=== PATIENT | male | born 1945 | race African-American/Black ===

== ENCOUNTER → 2023-10-02 12:58 | Outpatient (REF) | payer MEDICARE, OTHER, SELFPAY ==
[2023-10-02 13:52] LABS: Urine Albumin 3+ (Neg - Trace); Urine Bilirubin Negative (Negative); Urine Character Clear (Clear); Urine Color Yellow; Urine Glucose Negative (Negative); Urine Ketone Negative (Negative); Urine Leukocyte Trace (Negative); Urine Nitrite Negative (Negative); Urine Occult Blood Negative (Negative); Urine Specific Gravity 1.015 (<1.030); Urine Urobilinogen Negative (Neg - 1+)
[2023-10-02 14:07] LABS: ALT (SGPT) 16 U/L (0-50); AST (SGOT) 21 U/L (17-59); Albumin 3.6 g/dl (3.5-5.0); Alkaline Phosphatase 71 U/L (38-126); Blood Urea Nitrogen 33 mg/dl (9-20); Carbon Dioxide 15 mmol/L (22-30); Chloride 108 mmol/L (98-107); Glucose 104 mg/dl (70-99); HDL Cholesterol 65 mg/dl; LDL Cholesterol, Calculated 55 mg/dl; Potassium 4.3 mmol/L (3.5-5.1); Sodium 138 mmol/L (135-145); Total Bilirubin 0.5 mg/dl (0.2-1.3); Total Cholesterol 141 mg/dl (50-199); Total Protein 7.1 g/dl (6.3-8.2); Triglyceride 109 mg/dl (10-149); Very Low Density Lipoprotein 21 mg/dl (0-30)
[2023-10-02 14:09] LABS: Urine Hyaline Cast 0-2 /LPF (0-2)
[2023-10-02 14:11] LABS: Urine Bacteria Few (Negative); Urine Red Blood Cell 0-2 /HPF (0-2)
[2023-10-04 10:59] LABS: Intact PTH 736.1 pg/ml (13.6-85.8)
== END ==
LOC: REG 12:58
PROVIDERS: ATTENDING PHYSICIAN Physician Assistant
DX: I10 Essential (primary) hypertension (principal); I25.10 Atherosclerotic heart disease of native coronary artery without angina pectoris; E78.00 Pure hypercholesterolemia, unspecified; N18.32 Chronic kidney disease, stage 3b; Z85.46 Personal history of malignant neoplasm of prostate
CPT/HCPCS: 36415; 80053; 80061; 81003; 81015; 83970; 84153

== ENCOUNTER → 2023-10-22 07:29 | Outpatient (REF) | payer MEDICARE, OTHER, SELFPAY ==
[2023-10-22 08:32] LABS: Hematocrit 26.9 % (39.0-52.0); Hemoglobin 8.7 g/dL (13.0-18.0); Mean Corp Hgb Conc. 32.3 g/dL (33.0-37.0); Mean Corpuscular Hgb 27.4 pg (27.0-31.0); Mean Corpuscular Volume 84.6 fL (80.0-94.0); Mean Platelet Volume 11.2 fL (7.4-10.4); Platelet Count 211 10^3/uL (130-400); Red Blood Cell Count 3.18 10^6/uL (4.70-6.10); Red Cell Dist. Width 13.2 % (11.5-14.5); White Blood Cell Count 4.3 10^3/uL (4.8-10.8)
[2023-10-22 08:54] LABS: Urine Protein 375 mg/dl
[2023-10-22 08:56] LABS: Albumin 3.5 g/dl (3.5-5.0); Blood Urea Nitrogen 37 mg/dl (9-20); Calcium 7.1 mg/dl (8.4-10.2); Carbon Dioxide 20 mmol/L (22-30); Chloride 102 mmol/L (98-107); Glucose 93 mg/dl (70-99); Phosphorus 3.9 mg/dl (2.5-4.5); Potassium 3.3 mmol/L (3.5-5.1); Sodium 135 mmol/L (135-145); eGFR 22.12
== END ==
LOC: REG 07:29
PROVIDERS: ATTENDING PHYSICIAN Specialist
DX: I10 Essential (primary) hypertension (principal)
CPT/HCPCS: 36415; 80069; 82570; 83970; 84156; 85027

== ENCOUNTER 2024-03-13 05:00 | Inpatient (IN) | payer MEDICARE, OTHER, SELFPAY ==
[2024-03-12 22:10] VITALS: BP 173/87
[2024-03-12 23:00] VITALS: BP 176/86
--- NOTE | 2024-03-12 23:24 | ED.GENMED ---
History of Present Illness
<CHERYL Smart - Last Filed: 03/13/24 05:36>
General
Chief Complaint: Swelling
Time Seen by Provider: 03/12/24 23:23
History of Present Illness
History of Present Illness:
Pt is an 78 y/o male presenting for swelling in his penis and right arm. He states the swelling started in his penis 3 days ago and the swelling in his arm started yesterday. He states the swelling comes and goes. He denies any exacerbating or
alleviating factors. He states this has never happened in the past. He denies any pain associated with the swelling. He states he still has full strength and ROM in his arm. He denies any DIAZ, dizziness, blurry vision, cough, SOB, CP, palpitations,
abdominal pain, nausea, vomiting, diarrhea, constipation, dysuria, penial discharge.
Past History
<CHERYL Smart - Last Filed: 03/13/24 05:36>
Past History
ED Past Medical History: CAD, Cancer (Renal, prostate), HTN, Other (Peripheral arterial disease, anemia, TORSTEN) and Other (GI bleed); Negative CHF, CVA, Hypercholesterolemia, IDDM or NIDDM
ED Past Surgical History: Cardiac (Cardiac stents) and Urological (Kidney removal for renal cancer)
Social History
Tobacco: Non-smoker
Alcohol: None
Drug: None
Personal:
Living: with family
Employment: Retired
Family History
Family History: Hypertension
Phy Exam
<CHERYL Smart - Last Filed: 03/13/24 05:36>
Physical Exam
Physical Exam:
GENERAL: Alert , in no apparent distress
EYE: pupils equal and reactive
Throat: Airway intact, no exudates
NECK: Supple, no significant adenopathy.
CARDIAC: Regular rate and rhythm .
LUNGS: Clear breath sounds bilaterally, no acute respiratory distress, no wheezes/rales/rhonchi
ABDOMEN: Soft, nondistended, nontender, no cvat
NEUROLOGICAL: Alert and oriented, no focal neuro deficits
SKIN: Warm and dry, skin intact.
MUSCULOSKELETAL: Edematous right arm from below the elbow to the hand. 5/5 strength and normal ROM of the right shoulder, elbow, wrist. No pain with ROM or palpation. Left arm is nonedematous with 5/5 strength and full ROM. 2+ radial pulses b/l.
Genitourinary: Edematous penis with foreskin over glans of penis.
PSYCH: Normal and appropriate interaction.
Scores
<CHERYL Smart - Last Filed: 03/13/24 05:36>
Heart Failure Risk
Heart Failure Risk Score: Not Applicable
Course
<CHERYL Smart - Last Filed: 03/13/24 05:36>
Orders/Labs/Results
Orders:
Orders
03/13/24 00:07
US Periph Venous UPPER Ext RT Urgent
Comment:
Reason For Exam: swelling
03/13/24 00:08
CR Chest - 2 Views Urgent
Comment:
Reason For Exam: peripheral edema
03/13/24 00:17
Complete Blood Count/With Diff Urgent
Comprehensive Metabolic Panel Urgent
NT-proBNP Urgent
03/13/24 01:33
CT Abd/pelvis Wo Iv Cont Urgent
Comment:
Reason For Exam: acute renal failure
Bladder Scan- Treatment ONCE
03/13/24 03:14
Furosemide [Lasix] 40 mg IV NOW STA
03/13/24 04:04
Urinalysis Reflex To Culture Urgent
Date Specimen was Collected: 03/13/24
Time Specimen was Collected: 04:02
Urine Microscopic Reflex Cult Urgent
03/13/24 04:20
EKG [Electrocardiogram (*1)] Stat
Reason for Study: Heart Failure, Left
03/13/24 04:21
Admit/Transfer Patient As Directed
Co-Sign Provider:
Level of Care: Inpatient admission
Assign to:: IVU
Physician / Group: Malena
Transfer to: IVU
Diagnosis: Pericardial Effusion, Volume Overload, ARF
Patient Condition: Serious
Reason for Hospitalization: Pericardial Effusion, Volume Overload, ARF
Expected length of stay greater than two midnights?: Yes
ELOS- Estimated Length of Stay in days: 2
I certify the patient meets the requirements for IP care: Yes
PRN Pain Medication Management As Directed
May give lesser potent ordered pain med per pt: Yes
preference::
Protocol:: Medication orders for pain may be administered in a
manner that supports deferring to patient preference
when the pt is:
- Requesting an ordered lesser potent pain medication.
Least to most potent pain medications are defined
as: acetaminophen < NSAID < tramadol < opioids
(morphine, oxycodone, hydromorphone).
- Requesting a lesser dose of the same medication IF
ORDERED.
- Requesting a less intrusive route of administration
if both routes are prescribed by the provider (PO <
IV).
03/13/24 04:23
Code Status As Directed
Resuscitation Status: Full Code
03/13/24 04:28
Albuterol Nebs [Ventolin Nebules] 2.5 mg INH R Q4HPRN PRN
03/13/24 04:30
Troponin I Q6H
03/13/24 04:35
CARDIOLOGY CONSULT Routine
Consulting Provider: Kaushik Zaldivar
Was physician already notified: No
Reason for consult: heart failure
NEPHROLOGY CONSULT Routine
Consulting Provider: Jeffrey Neumann V.
Was physician already notified: Yes
Reason for consult: TORSTEN/CKD IV
03/13/24 04:36
Consult Notification Routine
Specialty to Notify: Cardiology
03/13/24 04:37
Elevate Extremity As Directed
Extremity:: right arm
Comment: elevate right arm above level of heart as able
03/13/24 04:39
Stevenson Catheter [Catheter- Indwelling] As Directed
Reason for insertion: Acute Retention
Discontinue Date/Time: 03/16/24 0600
03/13/24 04:40
Consult Notification Routine
Specialty to Notify: Urology
UROLOGY CONSULT Routine
Consulting Provider: Jarek Tompkins
Was physician already notified: No
Comment: torsten/hydronephrosis
03/13/24 05:00
Flush (0.9% Sodium Chloride) [Flush (Nss)] See Dose Instructions IV PER PROTOCOL
03/13/24 05:28
Acetaminophen [Tylenol] 650 mg PO Q4HPRN PRN
Bisacodyl [Dulcolax] 10 mg RECTAL [id number] PRN
Docusate W/Senna [Senokot-S] 1 tablet PO BIDPRN PRN
Polyethylene Glycol Powder [Miralax] 17 grams PO DAILYPRN PRN
03/13/24 05:28
Activity As Directed
Activity Level: As Tolerated
Intake/ Output As Directed
Frequency: Per unit guidelines
Comment: strict
Vital Signs As Directed
Frequency: Per unit guidelines
Weight As Directed
Frequency: Daily
Rx Incentive Spirometry [RESP] Routine
Frequency: q1h while awake
DX Deep Vein Thrombosis Video Routine
03/13/24 06:00
Echo 2D MMode Color/Doppler IN AM
Reason for Study: heart failure
Cardiology Consult: Kaushik Zaldivar
Cholesterol Lowering
Cholesterol Lowering: Sodium, 2 Gram
Potassium, 2 gram
Basic Metabolic Panel IN AM
Complete Blood Count/With Diff IN AM
Creatine Phosphokinase IN AM
Magnesium IN AM
03/13/24 08:00
Aspirin Low Dose EC [Aspir Low (Enteric Coated)] 81 mg PO DAILY
Brimonidine [Alphagan 0.2% Eye Drops] 1 drop OPHTH BID
Dorzolamide HCl [Trusopt 2% Ophthalmic Solution] 1 drop OPHTH BID
Furosemide [Lasix] 40 mg IV DAILY
Heparin 5,000 units SC Q12
Metoprolol [Lopressor] 12.5 mg PO BID
NIFEdipine EXTENDED RELEASE [Procardia Xl (Extended Release)] 30 mg PO DAILY
Rosuvastatin Calcium [Crestor] 10 mg PO DAILY
03/13/24 10:30
Troponin I Q6H
03/13/24 16:30
Troponin I Q6H
03/13/24 22:00
Latanoprost [Xalatan Ophthalmic Solution] 1 drop OPHTH HS
NIFEdipine EXTENDED RELEASE [Procardia Xl (Extended Release)] 60 mg PO HS
Tamsulosin [Flomax] 0.4 mg PO HS
Abnormal Lab Results
03/13/24 03/13/24
00:17 04:04
RBC 3.04 L 10^6/uL
(4.70-6.10)
Hgb 8.8 L g/dL
(13.0-18.0)
Hct 26.8 L %
(39.0-52.0)
MCHC 32.8 L g/dL
(33.0-37.0)
Abs Immat Gran (auto) 0.1 H 10^3/uL
(0-0.05)
Absolute Lymphs (auto) 0.7 L 10^3/uL
(1.2-3.4)
Immature Gran % 1.2 H %
(0-0.5)
Lymphocytes % 12.1 L %
(20.5-51.1)
Monocytes % 10.8 H %
(1.7-9.3)
Eosinophils % 6.2 H %
(0-6)
BUN 42 H mg/dl
(9-20)
Creatinine 4.1 H* mg/dL
(0.7-1.3)
Calcium 7.9 L mg/dl
(8.4-10.2)
Total Protein 6.1 L g/dl
(6.3-8.2)
Albumin 3.4 L g/dl
(3.5-5.0)
Urine Bacteria (Reflex) Few A
(Negative)
Urine Albumin (Reflex) 3+ A
(Neg - Trace)
03/13/24 00:17
03/13/24 00:17
Vital Signs
Initial and Last Documented VS:
Initial Vital Signs
Temp Pulse Resp BP Pulse Ox
98.0 F 75 18 173/87 100
03/12/24 22:10 03/12/24 22:10 03/12/24 22:10 03/12/24 22:10 03/12/24 22:10
Last Documented Vital Signs
Temp Pulse Resp BP Pulse Ox
98.0 F 88 18 205/99 100
03/12/24 22:10 03/13/24 04:02 03/12/24 22:10 03/13/24 04:02 03/13/24 04:00
Marielt;Kaushik Callejas, DO - Last Filed: 03/13/24 03:29>
Orders/Labs/Results
Orders:
Orders
03/13/24 00:07
US Periph Venous UPPER Ext RT Urgent
Comment:
Reason For Exam: swelling
03/13/24 00:08
CR Chest - 2 Views Urgent
Comment:
Reason For Exam: peripheral edema
03/13/24 00:17
Complete Blood Count/With Diff Urgent
Comprehensive Metabolic Panel Urgent
NT-proBNP Urgent
03/13/24 01:33
CT Abd/pelvis Wo Iv Cont Urgent
Comment:
Reason For Exam: acute renal failure
Bladder Scan- Treatment ONCE
03/13/24 03:14
Furosemide [Lasix] 40 mg IV NOW STA
03/13/24 04:04
Urinalysis Reflex To Culture Urgent
Date Specimen was Collected: 03/13/24
Time Specimen was Collected: 04:02
Urine Microscopic Reflex Cult Urgent
03/13/24 04:20
EKG [Electrocardiogram (*1)] Stat
Reason for Study: Heart Failure, Left
03/13/24 04:21
Admit/Transfer Patient As Directed
Co-Sign Provider:
Level of Care: Inpatient admission
Assign to:: IVU
Physician / Group: Malena
Transfer to: IVU
Diagnosis: Pericardial Effusion, Volume Overload, ARF
Patient Condition: Serious
Reason for Hospitalization: Pericardial Effusion, Volume Overload, ARF
Expected length of stay greater than two midnights?: Yes
ELOS- Estimated Length of Stay in days: 2
I certify the patient meets the requirements for IP care: Yes
PRN Pain Medication Management As Directed
May give lesser potent ordered pain med per pt: Yes
preference::
Protocol:: Medication orders for pain may be administered in a
manner that supports deferring to patient preference
when the pt is:
- Requesting an ordered lesser potent pain medication.
Least to most potent pain medications are defined
as: acetaminophen < NSAID < tramadol < opioids
(morphine, oxycodone, hydromorphone).
- Requesting a lesser dose of the same medication IF
ORDERED.
- Requesting a less intrusive route of administration
if both routes are prescribed by the provider (PO <
IV).
03/13/24 04:23
Code Status As Directed
Resuscitation Status: Full Code
03/13/24 04:28
Albuterol Nebs [Ventolin Nebules] 2.5 mg INH R Q4HPRN PRN
03/13/24 04:30
Troponin I Q6H
03/13/24 04:35
CARDIOLOGY CONSULT Routine
Consulting Provider: Kaushik Zaldivar
Was physician already notified: No
Reason for consult: heart failure
NEPHROLOGY CONSULT Routine
Consulting Provider: Jeffrey Neumann V.
Was physician already notified: Yes
Reason for consult: TORSTEN/CKD IV
03/13/24 04:36
Consult Notification Routine
Specialty to Notify: Cardiology
03/13/24 04:37
Elevate Extremity As Directed
Extremity:: right arm
Comment: elevate right arm above level of heart as able
03/13/24 04:39
Stevenson Catheter [Catheter- Indwelling] As Directed
Reason for insertion: Acute Retention
Discontinue Date/Time: 03/16/24 0600
03/13/24 04:40
Consult Notification Routine
Specialty to Notify: Urology
UROLOGY CONSULT Routine
Consulting Provider: Jarek Tompkins
Was physician already notified: No
Comment: torsten/hydronephrosis
03/13/24 05:00
Flush (0.9% Sodium Chloride) [Flush (Nss)] See Dose Instructions IV PER PROTOCOL
03/13/24 05:28
Acetaminophen [Tylenol] 650 mg PO Q4HPRN PRN
Bisacodyl [Dulcolax] 10 mg RECTAL [id number] PRN
Docusate W/Senna [Senokot-S] 1 tablet PO BIDPRN PRN
Polyethylene Glycol Powder [Miralax] 17 grams PO DAILYPRN PRN
03/13/24 05:28
Activity As Directed
Activity Level: As Tolerated
Intake/ Output As Directed
Frequency: Per unit guidelines
Comment: strict
Vital Signs As Directed
Frequency: Per unit guidelines
Weight As Directed
Frequency: Daily
Rx Incentive Spirometry [RESP] Routine
Frequency: q1h while awake
DX Deep Vein Thrombosis Video Routine
03/13/24 06:00
Echo 2D MMode Color/Doppler IN AM
Reason for Study: heart failure
Cardiology Consult: Kaushik Zaldivar
Cholesterol Lowering
Cholesterol Lowering: Sodium, 2 Gram
Potassium, 2 gram
Basic Metabolic Panel IN AM
Complete Blood Count/With Diff IN AM
Creatine Phosphokinase IN AM
Magnesium IN AM
03/13/24 08:00
Aspirin Low Dose EC [Aspir Low (Enteric Coated)] 81 mg PO DAILY
Brimonidine [Alphagan 0.2% Eye Drops] 1 drop OPHTH BID
Dorzolamide HCl [Trusopt 2% Ophthalmic Solution] 1 drop OPHTH BID
Furosemide [Lasix] 40 mg IV DAILY
Heparin 5,000 units SC Q12
Metoprolol [Lopressor] 12.5 mg PO BID
NIFEdipine EXTENDED RELEASE [Procardia Xl (Extended Release)] 30 mg PO DAILY
Rosuvastatin Calcium [Crestor] 10 mg PO DAILY
03/13/24 10:30
Troponin I Q6H
03/13/24 16:30
Troponin I Q6H
03/13/24 22:00
Latanoprost [Xalatan Ophthalmic Solution] 1 drop OPHTH HS
NIFEdipine EXTENDED RELEASE [Procardia Xl (Extended Release)] 60 mg PO HS
Tamsulosin [Flomax] 0.4 mg PO HS
Abnormal Lab Results
03/13/24 03/13/24
00:17 04:04
RBC 3.04 L 10^6/uL
(4.70-6.10)
Hgb 8.8 L g/dL
(13.0-18.0)
Hct 26.8 L %
(39.0-52.0)
MCHC 32.8 L g/dL
(33.0-37.0)
Abs Immat Gran (auto) 0.1 H 10^3/uL
(0-0.05)
Absolute Lymphs (auto) 0.7 L 10^3/uL
(1.2-3.4)
Immature Gran % 1.2 H %
(0-0.5)
Lymphocytes % 12.1 L %
(20.5-51.1)
Monocytes % 10.8 H %
(1.7-9.3)
Eosinophils % 6.2 H %
(0-6)
BUN 42 H mg/dl
(9-20)
Creatinine 4.1 H* mg/dL
(0.7-1.3)
Calcium 7.9 L mg/dl
(8.4-10.2)
Total Protein 6.1 L g/dl
(6.3-8.2)
Albumin 3.4 L g/dl
(3.5-5.0)
Urine Bacteria (Reflex) Few A
(Negative)
Urine Albumin (Reflex) 3+ A
(Neg - Trace)
03/13/24 00:17
03/13/24 00:17
Vital Signs
Initial and Last Documented VS:
Initial Vital Signs
Temp Pulse Resp BP Pulse Ox
98.0 F 75 18 173/87 100
03/12/24 22:10 03/12/24 22:10 03/12/24 22:10 03/12/24 22:10 03/12/24 22:10
Last Documented Vital Signs
Temp Pulse Resp BP Pulse Ox
98.0 F 88 18 205/99 100
03/12/24 22:10 03/13/24 04:02 03/12/24 22:10 03/13/24 04:02 03/13/24 04:00
<CHERYL Smart - Last Filed: 03/13/24 05:36>
*Radiology
Radiology exam reviewed: radiology read reviewed
*Pulse Oximetry
Patient hypoxic: no
*EKG
Interpreted by ED Provider?: NA
*Paper Baling Machine Operator Interpretation
Rate: Paper Baling Machine Operator- N/A
*Critical Care Note
Total Time (30-74mins, 75-104mins- exclusive of procedures): Not Applicable
ED Attending Note
<CHERYL Smart - Last Filed: 03/13/24 05:36>
-
Portions of this chart may have been created with voice recognition software.� Occasional wrong word or��sound alike� substitutions may have occurred due to the inherent limitations of voice recognition software.
<Kaushik Callejas DO - Last Filed: 03/13/24 03:29>
ED Attending Note
Patient seen and examined by attending physician: Yes
I performed the substantive portion of visit, reviewed & personally made and approve the management plan that is documented in note by myself or ARNEL.: Yes
ED Attending Note:
I have reviewed Azam's note
Patient presents for evaluation of swelling. Patient's not swelling his right arm and his penis. He has been experiencing the symptoms for the past 3 days or so. He noted penile swelling while transferring. Patient has bilateral [id number]
amputations. He noted that the penis was making it difficult for him to transfer. Patient also noticed the right arm swelling today. He is right-hand dominant. He denies shortness of breath. He denies orthopnea. No fever or chills. No chest
pain.
General: Awake, Alert, Oriented X3. No acute distress.
Vitals: unremarkable
Head: Atraumatic
Eyes: Pupils equal, EOMI
Throat: Airway intact, no exudates
Neck: Trachea midline
Lungs: Clear and equal b/l
Heart: Regular rate, no murmurs
Abd: Soft, Nontender, No pulsatile mass
Neuro: Grossly nonfocal
Skin: Warm, dry, no rash, pale complexion
Extremities: Bilateral [id number] amputations. Right arm noted to have mild edema of the hand and forearm. Arm is nontender. There is good radial pulse.
Labs show marked elevation in BUN/Creat. Bladder scan is not significant. CT shows mild r hydro but no obstruction. ? bladder wall thickening, pleural effusions b/l, mod pericardial effusion and anasarca.
Will give lasix for fluid retention/chf. Pt will require hospitalization for further treatment and eval.
Discharge Plan
Departure
Patient Disposition: Admit
Date of Disposition: 03/13/24
Time of Disposition: 03:15
Presentation/result/management discussed w/ accepting MD/DO: Hospitalist
Condition: Fair
Discharge Problem:
Acute renal failure, Anasarca, Pleural effusion, Pericardial effusion
Interventions
Interventions:
*Risk Screen - Suicide Last Done: 03/12/24 22:12
*General Assessment Last Done: 03/12/24 22:12
*Neglect/Abuse Screening Last Done: 03/12/24 22:12
ED- Fall Risk Assessment Last Done: 03/12/24 22:55
ED- Cardiac Assessment Last Done: 03/12/24 22:55
ED- Pulmonary Assessment Last Done: 03/12/24 22:55
ED-Skin Assessment Last Done: 03/12/24 22:55
[2024-03-13] VITALS (18 sets, daily range): BP systolic 146–215; BP diastolic 72–99
[2024-03-13 00:45] LABS: % Basophils 0.9 % (0-2); % Eosinophils 6.2 % (0-6); % Immature Granulocytes 1.2 % (0-0.5); % Lymphocytes 12.1 % (20.5-51.1); % Monocytes 10.8 % (1.7-9.3); % Neutrophils 68.8 % (42.2-75.2); Absolute Basophils 0.1 10^3/uL (0-0.2); Absolute Eosinophils 0.4 10^3/uL (0-0.7); Absolute Immature Granulocytes 0.1 10^3/uL (0-0.05); Absolute Lymphocytes 0.7 10^3/uL (1.2-3.4); Absolute Monocytes 0.6 10^3/uL (0.1-0.6); Absolute Neutrophils 3.9 10^3/uL (1.4-6.5); Hematocrit 26.8 % (39.0-52.0); Hemoglobin 8.8 g/dL (13.0-18.0); Mean Corp Hgb Conc. 32.8 g/dL (33.0-37.0); Mean Corpuscular Hgb 28.9 pg (27.0-31.0); Mean Corpuscular Volume 88.2 fL (80.0-94.0); Nucleated Red Blood Cells % 0 % (-); Platelet Count 206 10^3/uL (130-400); Red Blood Cell Count 3.04 10^6/uL (4.70-6.10); Red Cell Dist. Width 13.4 % (11.5-14.5); White Blood Cell Count 5.6 10^3/uL (4.8-10.8)
[2024-03-13 00:46] LABS: NT-proBNP 1160 pg/ml
[2024-03-13 01:01] LABS: ALT (SGPT) 34 U/L (0-50); AST (SGOT) 37 U/L (17-59); Albumin 3.4 g/dl (3.5-5.0); Alkaline Phosphatase 44 U/L (38-126); Blood Urea Nitrogen 42 mg/dl (9-20); Calcium 7.9 mg/dl (8.4-10.2); Carbon Dioxide 22 mmol/L (22-30); Chloride 107 mmol/L (98-107); Glucose 96 mg/dl (70-99); Potassium 3.7 mmol/L (3.5-5.1); Sodium 136 mmol/L (135-145); Total Bilirubin 0.3 mg/dl (0.2-1.3); Total Protein 6.1 g/dl (6.3-8.2); eGFR 13.99
--- NOTE | 2024-03-13 03:34 | HPS.HSE ---
Family Physician
-
Family Physician: Chyna Lowe MD
Chief Complaint
-
Swelling of Penis and Right Arm
History of Present Illness
78yo M with PMH CAD, HTN/HLD, Hx Pericardial Effusion, Carotid Artery Stenosis, PVD s/p Bifem Bypass, Hx B/L AKA, CKD IV, Prostate Ca, Renal Ca s/p Nephrectomy, Glaucoma presents to ER with complaint of swelling of penis and right arm. Pt states he
noticed penile swelling over the last 3 days without any pain or difficulty urinating. 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
Pt is not on any diuretics and has no documented heart failure history. Does endorses dyspnea with transferring lately. Also notes decreased appetite and disinterest in food. Otherwise denies fever, chills, chest pain, palps, wheezing, cough, abd
pain, n/v/d/c, dysuria.
Pt presents with with BP 180/91, other V.S.S. WBC 5.K, Hgb 8.8 g/dL (chronic), BUN/Cr 42/4.1 (BUN/Cr 37/2.8 10/2023). CT a/p with mild right hydro and questionable cystitis; Mod Pericardial effusion; Mod Right and Small Left Pericardial effusion not
evidenct on CXR. S/P 40mg IV lasix in ER.
Medical History
Past Medical History
Past Medical History: Reports Other (CAD, Cancer (Renal, prostate), HTN, Other (Peripheral arterial disease, anemia, TORSTEN) and Other (GI bleed);)
Past Surgical History: Reports Other (Nephrectomy, left lower artery bypass surgery, Left AKA, Right transfemoral amputation)
Social History
Tobacco: Non-smoker
Alcohol: None
Drug: None
Personal:
Living: With Family
Employment: Retired
Family History
Family History: Other (Father with cancer, Mother with pancreatic cancer, sibling with valvular heart disease.)
Allergies / Home Medications
Allergies reflects when Allergies were last updated in [facility].
Home Medications with original date entered in [facility]
Allergy/Medication List:
Allergies
Allergy/AdvReac Type Severity Reaction Status Date / Time
Hydantoins Allergy Severe Rash Verified 03/12/24 22:09
penicillin G Allergy Severe liver Verified 03/12/24 22:09
damage,
red hands
and feet
Penicillins Allergy Severe liver Verified 03/12/24 22:09
damage,
red hands
and feet
phenytoin Allergy Severe Rash Verified 03/12/24 22:09
ciprofloxacin Allergy Intermediate Itching Verified 03/12/24 22:09
Iodinated Contrast Media Allergy Intermediate chills;trem Verified 03/12/24 22:09
[Iodinated Contrast- Oral ors
and IV Dye]
tetanus and diphtheria Allergy Intermediate Swelling, Verified 03/12/24 22:09
toxoids Pain at
site
Home Medications
aspirin 81 mg tablet,delayed release 81 mg PO DAILY 10/21/20
brimonidine 0.2 % eye drops 0 drp ophthalmic (eye) BID 10/21/20
dorzolamide 2 % eye drops 0 drp ophthalmic (eye) BID 10/21/20
latanoprost 0.005 % eye drops 0 drp ophthalmic (eye) HS 10/21/20
rosuvastatin 10 mg tablet 10 mg PO DAILY 10/21/20
tamsulosin 0.4 mg capsule 0.4 mg PO HS 10/21/20
nifedipine 30 mg tablet,extended release 30 mg PO DAILY #90 tabs 10/23/20
nifedipine 30 mg tablet,extended release 60 mg (2 x 30 mg) PO HS #90 tabs 10/23/20
Review of Systems
-
A 12 point ROS was completed and negative except as noted: Yes
Physical Exam
Vital Signs
Vital Signs
Temp Pulse Resp BP Pulse Ox
98.0 F 75 18 180/91 100
03/12/24 22:10 03/12/24 22:10 03/12/24 22:10 03/13/24 02:31 03/13/24 02:31
Physical Exam
General: No Apparent Distress, Comfortable, Conversant and Appears Chronically Ill; No Respiratory Distress or Pain
HEENT: NormoCephalic, Moist mucous membranes, Atraumatic and PERRLA
Respiratory: Other (Crackles right lung base. No wheezing. )
Cardiac: S1/S2 and Regular Rhythm; No Murmur or Rub
GI: Soft, Non Tender, Non Distended and Normal Bowel Sounds; No Organomegaly
Rectal: Deferred by Provider
Genito-urinary: Other (Mild-Mod penile swelling. No testicular swelling. )
Musculoskeletal: No Clubbing, No Cyanosis and Other (B/L AKA. Right>Left UE non pitting edema. )
Skin: Warm and Dry; No Rash
Neuro: Awake, Alert, Oriented, AO x 3 and Nonfocal/grossly intact
Psych: Calm
Laboratory Results
-
03/13/24 00:17
03/13/24 00:17
Laboratory Results
Total Bilirubin 0.3 mg/dl (0.2-1.3) 03/13/24 00:17
AST 37 U/L (17-59) 03/13/24 00:17
ALT 34 U/L (0-50) 03/13/24 00:17
Alkaline Phosphatase 44 U/L (38-126) 03/13/24 00:17
Data Reviewed
-
Diagnostic Radiology: Image Personally Visualized and interpreted
CT Scan: Image Personally Visualized and interpreted
Medical Tests (Nuc Med, Echo, EKG etc): Image Personally Visualized and interpreted
Lab Data: Labs Reviewed by me
Old Records: Reviewed
Impression/Plan
-
Right Upper Extremity Edema
- Likely 2/2 volume overload, less likely DVT though asymmetric nature is odd
- Venous Duplex obtained in ER, official read pending
- Elevate right arm above level of heart, Trend with IV diuresis
Volume Overload
- Pt presents with penile swelling and RUE edema (see plan above)
- BNP 1160.
- Unclear whether volume overload 2/2 poor renal clearance 2/2 progression of disease vs heart failure
- Obtain TTE
- Consult Cardiology for recs
- Initiated on 40mg IV lasix daily diuresis trending I&O and Daily Wts
TORSTEN on CKD IV
- BUN/Cr 42/4.1. Baseline BUN/Cr 37/2.8 10/2023
- Consider cardiorenal component vs 2/2 retention
- CT a/p mild right hydro nephrosis and possible cystitis
- Follow up UA
- Insert Stevenson and trend I&O
- Avoid nephrotoxics agents
- Trend with 40mg IV lasix daily
- Consult nephrology
Hydronephrosis / Hx BPH
- CT imaging as above. Stevenson inserted
- Likely contributing to above. Urology to evaluate.
- Will continue to feed given low suspicion for acute surgical intervention
- Continue home Flomax
Questionable Cystitis - Afebrile. No leukocytosis. Follow up UA and treat accordingly.
Pericardial Effusion
- Mod Pericardial effusion o n CT imaging. Will need to diuresis cautiously, monitoring preload
- Last TTE 08/2019 with LVSF wnl, no WMA, Mild-Mod MR
- Obtain Formal TTE
- Consult Cardiology
Pleural Effusion
- Mod right effusion, small left effusion on CT a/p, not obvious on CXR
- No RR complaints or oxygen requirements
- Consider repeat imaging with diuresis. No indication for thora at this time.
CAD, HTN/HLD
- Reports hx [place]/stent
- Continue home aspirin/statin/BB/Nifedipine
- Meds need reconciliation: Pt does not know BB dose, Hector Nomi will bring in AM
Renal Ca - hx L Nephrectomy noted.
Glaucoma - Continue home eye drops
Diet: Renal
DVT ppx: Heparin
Code Status: Full
[2024-03-13] MEDS: LASIX 40 MG IV (04:02)
[2024-03-13 04:13] LABS: Urine Albumin 3+ (Neg - Trace); Urine Bilirubin Negative (Negative); Urine Character Clear (Clear); Urine Color Yellow; Urine Glucose Negative (Negative); Urine Ketone Negative (Negative); Urine Leukocyte Negative (Negative); Urine Nitrite Negative (Negative); Urine Occult Blood Negative (Negative); Urine Urobilinogen Negative (Neg - 1+)
[2024-03-13 04:39] LABS: Urine Bacteria Few (Negative); Urine Red Blood Cell 0-2 /HPF (0-2); Urine White Cell 0-2 /HPF (0-5)
[2024-03-13] MEDS: APRESOLINE 5 MG IV (06:40)
[2024-03-13 06:46] LABS: % Basophils 0.9 % (0-2); % Eosinophils 6.4 % (0-6); % Immature Granulocytes 0.2 % (0-0.5); % Lymphocytes 13.8 % (20.5-51.1); % Monocytes 11.8 % (1.7-9.3); % Neutrophils 66.9 % (42.2-75.2); Absolute Basophils 0.1 10^3/uL (0-0.2); Absolute Eosinophils 0.4 10^3/uL (0-0.7); Absolute Lymphocytes 0.8 10^3/uL (1.2-3.4); Absolute Monocytes 0.7 10^3/uL (0.1-0.6); Absolute Neutrophils 3.7 10^3/uL (1.4-6.5); Hematocrit 26.5 % (39.0-52.0); Hemoglobin 8.7 g/dL (13.0-18.0); Mean Corp Hgb Conc. 32.8 g/dL (33.0-37.0); Mean Corpuscular Hgb 28.3 pg (27.0-31.0); Mean Corpuscular Volume 86.3 fL (80.0-94.0); Mean Platelet Volume 10.9 fL (7.4-10.4); Nucleated Red Blood Cells % 0 % (-); Platelet Count 218 10^3/uL (130-400); Red Blood Cell Count 3.07 10^6/uL (4.70-6.10); Red Cell Dist. Width 13.6 % (11.5-14.5); White Blood Cell Count 5.6 10^3/uL (4.8-10.8)
[2024-03-13 06:52] LABS: Blood Urea Nitrogen 42 mg/dl (9-20); Calcium 8.2 mg/dl (8.4-10.2); Carbon Dioxide 22 mmol/L (22-30); Chloride 107 mmol/L (98-107); Creatine Phosphokinase 352 U/L (55-170); Glucose 89 mg/dl (70-99); Magnesium 1.9 mg/dl (1.6-2.3); Potassium 3.9 mmol/L (3.5-5.1); Sodium 139 mmol/L (135-145); eGFR 14.42
--- NOTE | 2024-03-13 07:11 | PTCARENOTE ---
Received patient as admit from ED at 0530 into room 2246. Vital signs, labs, and EKG obtained and pt. placed on tele monitor. NSR with sinus arrhythmia on monitor. BP high at 193/91. COUNTER CONTROL OPERATOR notified and one time dose of IV Hydralazine ordered and
administered, see OCT. BP down to 167/76 upon recheck. Order for Stevenson catheter present which pt. did not have on admit to unit. One attempt made to place Stevenson cath was unsuccessful. Patient stated he did not feel he needs a catheter and would
like further clarification from doctor prior to another attempt being made. Bladder scan obtained which showed 110ml of urine. Pt. then voided 100mls of clear yellow urine into urinal. Pt. oriented to room, can make needs known. Call skinner within
reach.
[2024-03-13] MEDS: ASPIR LOW (ENTERIC COATED) 81 MG PO (07:41)
[2024-03-13] MEDS: LOPRESSOR 12.5 MG PO (07:41)
[2024-03-13] MEDS: TRUSOPT 2% OPHTHALMIC SOLUTION 1 DROP OPHTH ×2 (07:41→20:15)
[2024-03-13] MEDS: CRESTOR 10 MG PO (07:41)
[2024-03-13] MEDS: ALPHAGAN 0.2% EYE DROPS 1 DROP OPHTH ×2 (07:41→20:15)
[2024-03-13] MEDS: HEPARIN SC ×3 (07:43→20:15)
--- NOTE | 2024-03-13 08:27 | W.PN.HOSP.TC ---
Today's Communication/Plan
-
apparently, pt does not follow special diet as asking why he is restricted
await cards/renal/urology
ECHO
diuresis as able
Assessment / Plan
Assessment / Plan
pt is an 78 year old male
Right Upper Extremity Edema--Likely due to volume overload, less likely DVT and US negative--Elevate right arm above level of heart, Trend with IV diuresis
Volume Overload-- Pt presents with penile swelling and RUE edema--BNP 1160-- cont diuresis--watch creat -Unclear whether volume overload due to poor renal clearance from progression of disease or heart failure (diastolic from 2019 echo)--update
echo--await cards--cont on 40mg IV lasix daily diuresis trending I&O and Daily Wts
TORSTEN on CKD IV--unclear if cardiorenal vs renal disease progression--October 2023 creat was 2.8-- CT a/p mild right hydro nephrosis and possible cystitis (alicea cath unable to be placed due to coiling per nurse--await urology and renal input- Avoid
nephrotoxics agents- Trend with 40mg IV lasix daily
Hydronephrosis/Hx BPH- CT imaging as above- Likely contributing to above. Urology to evaluate- Continue home Flomax
Questionable Cystitis - Afebrile. No leukocytosis. Follow up UA and treat accordingly.
Pericardial Effusion- Mod Pericardial effusion on CT imaging (but usually overread)--await cards input--ECHO
Pleural Effusion- Mod right effusion, small left effusion on CT a/p, not obvious on CXR- No RR complaints or oxygen requirements- Consider repeat imaging with diuresis. No indication for thora at this time.
CAD, HTN/HLD- Reports hx FL/stent- Continue home aspirin/statin/BB/Nifedipine- Meds need reconciliation: Pt does not know BB dose, Hector Mosher will bring in AM
Renal Ca - hx L Nephrectomy noted.
Glaucoma - Continue home eye drops
DVT ppx: Heparin
Code Status: Full
apparently, pt does not follow special diet as asking why he is restricted
Anticipated Discharge: > 48 hours
Subjective/Interval History
-
Date of Service: March 13, 2024
pt c/o diet restriction and why....
Objective Data
-
Labs:
Laboratory Results
03/13/24 03/13/24
00:17 06:14
WBC 5.6 5.6
Hgb 8.8 L 8.7 L
Hct 26.8 L 26.5 L
Plt Count 206 218
Sodium 136 139
Potassium 3.7 3.9
Chloride 107 107
Carbon Dioxide 22 22
BUN 42 H 42 H
Creatinine 4.1 H* 4.0 H
Glucose 96 89
Calcium 7.9 L 8.2 L
Total Bilirubin 0.3
AST 37
ALT 34
Alkaline Phosphatase 44
Vital Signs:
max temp for 24 hours
03/13/24
06:09
Temp 98.4 F
Vital Signs
Temp Pulse Resp BP Pulse Ox
98.7 F 67 14 167/76 100
03/13/24 07:00 03/13/24 07:41 03/13/24 07:00 03/13/24 07:41 03/13/24 07:00
I&O
03/12/24 03/13/24 03/14/24
06:59 06:59 06:59
Output Total 100 / 100 175 / 175
Balance -100 / -100 -175 / -175
Review of Systems
-
All other systems: Reviewed and negative (all swelling almost back to baseline)
Physical Exam
-
General: Well Developed, Well Nourished and No Apparent Distress
HEENT: Normocephalic and Atraumatic; Negative Oxygen
Respiratory: Clear to Auscultation; Negative Wheezes or Rhonchi
Cardiac: Regular Rhythm and S1/S2; Negative Murmur
GI: Soft, Nontender, Nondistended and Normal Bowel Sounds
Genito-urinary: Other (penile edema--pt reports almost back to baseline)
Musculoskeletal: No Edema (mild swelling right right forearm) and Other (bilateral AKAs); Negative No Clubbing or No Cyanosis
Skin: Warm
Neuro: Awake
Psych: Calm
--- NOTE | 2024-03-13 08:44 | PTCARENOTE ---
Received patient for 7a-7p shift. Pt AAOx3, without complaints. VSS, 100% room air, SR/SA on quality assurance monitor. Medications administered as ordered. L upper arm PIV patent. +2 R arm edema, + penile edema. B/l AKA, pt able to turn and reposition self
in bed. Pt voiding in urinal. Instructed pt to call for assistance, pt demonstrates use of call skinner system. Will continue to monitor.
--- NOTE | 2024-03-13 09:17 | CON.CAR ---
Addendum entered and electronically signed by Kaushik Zaldivar MD 03/13/24 11:40:
Patient seen and examined in collaboration with ANGLE BENDER; agree with below.
-77-year-old male with coronary artery disease, significant PAD status-post bilateral AKA's, CKD (previous renal cancer status-post left nephrectomy), and hypertension; admitted with right arm and penis swelling.
-Nephrology and Urology consulted.
-Will change from metoprolol to Coreg to try to improve blood pressure control.
-Diuresis as per Nephrology.
-Echocardiogram on Friday.
-bus monitor; will follow.
Original Note:
Consultation
Consultation Request
Date/Time Consultation Requested: 03/13/2024829
Date/Time Consultation Performed: 03/13/2024829
Requesting Provider: DR. Guy
Performing Provider: Dr. Zaldivar
Reason for Consultation: edema
Medical History
-
Chief Complaint: edema
History of Present Illness:
77-year-old patient well-known to Dr. Aguillon with history of CAD, PAD (bilateral AKA's), hypertension, mitral regurgitation, right carotid stenosis (followed by Dr. Virgen), hyperlipidemia and stage IIIb CKD ( prior renal cell cancer and left
nephrectomy). Patient presented to the emergency room with complaints of right arm swelling for 1 day and penile swelling for approximately 3 days. He states he may have had a slight cough associated with this as well but thought this was related
to air conditioning. He denies chest pain or palpitations. He does not believe he was drinking excessive fluid or had increased sodium intake.
Past Medical History
Past Medical History: Other (Hypertension, hyperlipidemia, CAD, PAD right ICA stenosis, bilateral AKA's CKD 3B, mitral regurgitation)
Past Surgical History: Other (Prior nephrectomy, prior CAD with PCI, left femoral endarterectomy right femoral endarterectomy, bilateral AKA)
Social History
Tobacco: Non-Smoker
Alcohol: None
Living: With Family
Employment: Retired
Family History
Family History: Reviewed & Not Pertinent
Allergies / Home Medications
Allergy/AdvReac Type Severity Reaction Status Date / Time
Hydantoins Allergy Severe Rash Verified 03/12/24 22:09
penicillin G Allergy Severe liver Verified 03/12/24 22:09
damage,
red hands
and feet
Penicillins Allergy Severe liver Verified 03/12/24 22:09
damage,
red hands
and feet
phenytoin Allergy Severe Rash Verified 03/12/24 22:09
ciprofloxacin Allergy Intermediate Itching Verified 03/12/24 22:09
Iodinated Contrast Media Allergy Intermediate chills;trem Verified 03/12/24 22:09
[Iodinated Contrast- Oral ors
and IV Dye]
tetanus and diphtheria Allergy Intermediate Swelling, Verified 03/12/24 22:09
toxoids Pain at
site
�Medication �Instructions �Recorded �Confirmed �Type
aspirin 81 mg tablet,delayed 81 mg PO DAILY 10/21/20 03/13/24 Rx
release
brimonidine 0.2 % eye drops 0 drp ophthalmic (eye) BID 10/21/20 03/13/24 Rx
dorzolamide 2 % eye drops 0 drp ophthalmic (eye) BID 10/21/20 03/13/24 Rx
latanoprost 0.005 % eye drops 0 drp ophthalmic (eye) HS 10/21/20 03/13/24 Rx
rosuvastatin 10 mg tablet 10 mg PO DAILY 10/21/20 03/13/24 Rx
tamsulosin 0.4 mg capsule 0.4 mg PO HS 10/21/20 03/13/24 Rx
nifedipine 30 mg tablet,extended 30 mg PO DAILY #90 tabs 10/23/20 03/13/24 Rx
release
nifedipine 30 mg tablet,extended 60 mg (2 x 30 mg) PO HS #90 tabs 10/23/20 03/13/24 Rx
release
metoprolol tartrate PO BID 03/13/24 History
Review of Systems
-
History Source: Patient
Constitutional: No Symptoms
EENT: No Symptoms
Respiratory: Cough (Occasional cough with some clear phlegm.)
Cardiac: No Symptoms
: Other (Penile swelling x 3 days, improved now)
Musculoskeletal: Edema (Right arm swelling)
Neurological: No Symptoms
Physical Exam
Vital Signs
Temp Pulse Resp BP Pulse Ox
98.7 F 64 14 167/76 100
03/13/24 07:00 03/13/24 09:00 03/13/24 07:00 03/13/24 07:41 03/13/24 07:00
Lab Results
03/13/24 06:14
03/13/24 06:14
Troponin I 0.020 ng/ml 03/13/24 04:30
Aad-I-Aubsvjophwt Pept 1160 pg/ml 03/13/24 00:17
Physical Exam
General: Well Developed, Well Nourished and No Apparent Distress
HEENT: Normocephalic and Moist Mucous Membranes
Respiratory: Clear (Decreased bases. Few expiratory wheeze upper left)
Cardiac: S1/S2, Regular Rhythm and Peripheral Edema (No edema of upper thighs. No significant penile edema noted. Patient feels this is normalized as well)
Breast: N/A
GI: Soft, Non Distended and Normal Bowel Sounds
Rectal: Deferred by Provider
Musculoskeletal: No Edema
Skin: Warm and Dry
Neuro: AO x 3
Hematologic/Lymphatic: No Lymphadenopathy
Psych: Calm
Impression / Plan
-
Volume overload:
-Patient has not had prior history of CHF.
-He has bilateral pleural effusions and possible pericardial effusion noted on CT. BNP was elevated.
-He has TORSTEN on CKD.
-He was given IV Lasix.
-Update echocardiogram.
Pericardial effusion:
-Noted on CT.
-Patient with limited symptoms
-Update echo
CAD:
-Denies anginal symptoms.
-Continue medical therapy
-statin titration limited with renal function- on rosuvastatin and zetia
TORSTEN on CKD 4:
-Creat now in 4 range. Previously 2.8/2.9 range in September and October 2023
-Nephrology consulted.
Mitral regurgitation:
-Previously known to be mild to moderate with normal EF.
-Update echocardiogram
PAD:
-followed by Dr. Virgen
HTN:
-BP's hypertensive while here
-needs further med titration
Data Reviewed
-
EKG: Tracing Personally Visualized and interpreted (EKG with normal sinus rhythm with PVCs at [address] abnormality)
Radiology: Report Reviewed by me (Chest x-ray cardiomegaly with small right pleural effusion and right basilar atelectasis)
CT Scan: Report Reviewed by me (CT abdomen and pelvis: Moderate right and small left pleural effusions heart mildly enlarged moderate pericardial effusion, moderate atherosclerosis calcifications of the aorta. Prior left nephrectomy, mild
right-sided hydronephrosis)
Medical Tests (Nuc Med, Echo etc): Report Reviewed by me (Echocardiogram 09/06/2019 normal BiV size and function EF 65 mild to moderate MR)
--- NOTE | 2024-03-13 09:27 | W.CON.NEPH ---
Consultation
-
Date/Time Consultation Requested: 03/13/2024 7:30 AM
Date/Time Consultation Performed: 03/13/2024 9:30 AM
Requesting Provider: Dr. Jones
Performing Provider: Dr. Neumann
Reason for Consultation: Acute kidney injury
Medical History
-
Chief Complaint: Acute kidney injury
History of Present Illness:
The patient is an 78-year-old male with a past medical history of chronic kidney disease stage IV with a noted creatinine baseline of 2.8 from October 2023. He has a history of hypertension and is maintained on the combinations of nifedipine
metoprolol. He has a known history of BPH maintained on tamsulosin. He also has a prior history of malignant neoplasm of prostate and renal cell carcinoma. He has an extensive history of both coronary artery and peripheral vascular disease and
has undergone previous bifemoral bypass left AKA and nephrectomy for his renal cell carcinoma. He presented to the emergency room with complaints of genital swelling and of right upper extremity edema. He notes his symptoms have been ongoing for
the past 3 days. He did not note any difficulty voiding despite his penis edema. Of note the patient does not have a history of congestive heart failure or chronic diuretic use. On presentation to the hospital he was hypertensive with a blood
pressure of 180/91 and an acute renal failure with his creatinine elevated to 4. CT of his abdomen noted mild right hydro and possible cystitis he also has the presence of a moderate pericardial effusion and moderate right and small left pleural
effusion. Nephrology was consulted for his acute on chronic renal failure
Past Medical History
CKD stage IV
Past Medical History: Reports Other (CAD, Cancer (Renal, prostate), HTN, Other (Peripheral arterial disease, anemia, TORSTEN) and Other (GI bleed);)
Past Surgical History: Reports Other ( Left Nephrectomy, left lower artery bypass surgery, Left AKA, Right transfemoral amputation)
Social History
Tobacco: Non-Smoker
Alcohol: None
Family History
No CKD
Allergies / Home Medications
Allergy/AdvReac Type Severity Reaction Status Date / Time
Hydantoins Allergy Severe Rash Verified 03/12/24 22:09
penicillin G Allergy Severe liver Verified 03/12/24 22:09
damage,
red hands
and feet
Penicillins Allergy Severe liver Verified 03/12/24 22:09
damage,
red hands
and feet
phenytoin Allergy Severe Rash Verified 03/12/24 22:09
ciprofloxacin Allergy Intermediate Itching Verified 03/12/24 22:09
Iodinated Contrast Media Allergy Intermediate chills;trem Verified 03/12/24 22:09
[Iodinated Contrast- Oral ors
and IV Dye]
tetanus and diphtheria Allergy Intermediate Swelling, Verified 03/12/24 22:09
toxoids Pain at
site
�Medication �Instructions �Recorded �Confirmed �Type
aspirin 81 mg tablet,delayed 81 mg PO DAILY 10/21/20 03/13/24 Rx
release
brimonidine 0.2 % eye drops 0 drp ophthalmic (eye) BID 10/21/20 03/13/24 Rx
dorzolamide 2 % eye drops 0 drp ophthalmic (eye) BID 10/21/20 03/13/24 Rx
latanoprost 0.005 % eye drops 0 drp ophthalmic (eye) HS 10/21/20 03/13/24 Rx
rosuvastatin 10 mg tablet 10 mg PO DAILY 10/21/20 03/13/24 Rx
tamsulosin 0.4 mg capsule 0.4 mg PO HS 10/21/20 03/13/24 Rx
nifedipine 30 mg tablet,extended 30 mg PO DAILY #90 tabs 10/23/20 03/13/24 Rx
release
nifedipine 30 mg tablet,extended 60 mg (2 x 30 mg) PO HS #90 tabs 10/23/20 03/13/24 Rx
release
metoprolol tartrate PO BID 03/13/24 History
Review of Systems
-
: Other (Pain is sedated)
Musculoskeletal: Other (Right upper extremity edema)
Physical Exam
Vital Signs
Vital Signs
Temp Pulse Resp BP Pulse Ox
98.7 F 64 14 167/76 100
03/13/24 07:00 03/13/24 09:00 03/13/24 07:00 03/13/24 07:41 03/13/24 09:05
Lab Results
03/13/24 06:14
03/13/24 06:14
WBC 5.6 10^3/uL (4.8-10.8) 03/13/24 06:14
RBC 3.07 10^6/uL (4.70-6.10) L 03/13/24 06:14
Hgb 8.7 g/dL (13.0-18.0) L 03/13/24 06:14
Hct 26.5 % (39.0-52.0) L 03/13/24 06:14
Plt Count 218 10^3/uL (130-400) 03/13/24 06:14
Sodium 139 mmol/L (135-145) 03/13/24 06:14
Potassium 3.9 mmol/L (3.5-5.1) 03/13/24 06:14
Chloride 107 mmol/L (98-107) 03/13/24 06:14
Carbon Dioxide 22 mmol/L (22-30) 03/13/24 06:14
BUN 42 mg/dl (9-20) H 03/13/24 06:14
Creatinine 4.0 mg/dL (0.7-1.3) H 03/13/24 06:14
eGFR 14.42 03/13/24 06:14
Glucose 89 mg/dl (70-99) 03/13/24 06:14
Calcium 8.2 mg/dl (8.4-10.2) L 03/13/24 06:14
Csg-R-Ugrfboxgtgb Pept 1160 pg/ml 03/13/24 00:17
Albumin 3.4 g/dl (3.5-5.0) L 03/13/24 00:17
Physical Exam
General: AOx3, Nontoxic , NAD
HEENT: PERRL, EOMI, Anicteric, Conjunctivae Clear, Ear/Nose Intact, Hearing Normal, Oropharynx Clear/Moist, Dentition Intact, Facial Symmetry, Neck Supple, Neck: Trachea Midline, No JVD and No Thyromegaly, no Bruits
Respiratory: Clear to auscultation bilaterally with normal lung excursion, but with significantly decreased breath sounds towards the bases bilateral
Cardiac: S1/S2 and Regular Rate/Rhythm
Breast: Deferred by me
Abdomen: Soft, Nontender, Nondistended, Normal Bowel Sounds and No Hepatosplenomegaly
Rectal: Deferred by Provider
Genito-urinary: No Costovertebral Tenderness, penis edema
Extremities: No Clubbing, No Cyanosis and right upper extremity edema, bilateral AKA
Skin: No Rash or open lesions
Neuro: Nonfocal/Grossly Intact, CN II-XII (Intact) and Strength (Musculoskeletal exam 5 out of 5 both upper and lower extremities)
Hematologic/Lymphatic: No Cervical Lymphadenopathy, No Submandibular Lymphadenopathy and No Supraclavicular Lymphadenopathy
Psych: Mood/afflect pleasant, Insight/judgement good and Appropriate
Vascular: plus 1 pedal and radial pulses
Data Reviewed
-
Radiology: Image Personally Visualized and interpreted (Chest x-ray personally reviewed: Enlarged heart small left and right pleural effusions but no pulmonary edema)
CT Scan: Report Reviewed by me (CT scan notes left nephrectomy mild right-sided hydronephrosis numerous hypodensities within the right kidney likely cyst)
MRI: Other
Labs: Labs Reviewed by me ([facility] CBC urinalysis)
Old Records: Reviewed (Reviewed old records with creatinine noted to be 2.8 in October 2023)
Assessment/Plan
-
Impression:
Acute kidney injury
Chronic kidney disease stage IV with baseline creatinine of 2,8
Penis and right upper extremity edema/volume overload
Hydronephrosis
Cystitis
Pericardial and pleural effusion
Coronary artery disease
Hypertension
Peripheral vascular disease
Renal cancer with history of left nephrectomy
Plan:
-Will likely require Stevenson catheter in setting of possible right hydronephrosis and obstructive uropathy
-Urinalysis notes 3+ albuminuria which is consistent with prior history: Will check urine protein to creatinine ratio given edema
-Patient hypertensive with history of difficult to control hypertension, will provide hydralazine if blood pressure remains elevated over next 24 hours
-Echo to be obtained re: volume overload
-Agree with diuresis at 40 mg IV daily
-Urology to investigate hydronephrosis and penis edema
-No acute dialysis requirement today
[2024-03-13] MEDS: PROCARDIA XL (EXTENDED RELEASE) 30 MG PO (09:40)
--- NOTE | 2024-03-13 11:01 | W.PN.URO.CBU ---
Today's Communication / Plan
-
no alicea for now please check bladder scan call urologu dr carrasco if p[vr over 125cc
Assessment / Plan
-
TORSTEN POSSIBLY OBSTRCTIVE WITH RET HYDRO AND SOLITARY KIDNEY BUT ASO POSSIBLE FLUID OVEERLOAD ETC PT EMPTIES BLADDERAnd does not look rolando rettmiom and prohicibitve ricsk to pace alicea with prtese=umed bladder neck contracture from
radiation will order psa to see if acp back and await results of m=neph input but if fails will try alicea and may need stent
Diagnosis
-
Date of Service: March 13, 2024
-
Patient Diagnosis CKD 3 BUT CREATINE 2.8 TO 4.1 solitary rt kidney with mild hydto ct scan
bladder empties but possib;e cystis post xrt for acp. Pt with no voiding probelms empties with good stream
Post Op Day:
Subjective
-
NO SXS SWOLLWN PENIS ARM
Objective
-
Vital Signs
Temp Pulse Resp BP Pulse Ox
98.7 F 65 14 162/80 100
03/13/24 07:00 03/13/24 09:40 03/13/24 07:00 03/13/24 09:40 03/13/24 09:05
Intake and Output
03/12/24 03/13/24 03/14/24
06:59 06:59 06:59
Output Total 100 / 100 175 / 175
Balance -100 / -100 -175 / -175
Output:
Urine, Voided 100 / 100 175 / 175
Laboratory Results
03/13/24 06:14
03/13/24 06:14
Review of Systems
-
: No Symptoms
Physical Exam
-
General - well developed, well nourished, no acute distress
Chest - clear bilaterally
Abdomen - soft, non-tender, positive bowel sounds, no CVAT, no incisional pain or distention
Genitalia - normal
Rectal - normal
Skin - warm & dry with no rash
Neuro - AOx3, no motor deficits
Extremities - no clubbing, no cyanosis, no edema
Incision - clean, dry
Dressing - clean, dry, intact
Care Review
Data Reviewed
Discussed with: Hospitalist, Internal Medicine and Nursing
CT Scan: Image Pers Reviewed
[2024-03-13 11:06] LABS: PSA, Total - Diagnostic 0.87 ng/ml (0.0-4.0)
[2024-03-13 11:21] LABS: Troponin I 0.024 ng/ml
[2024-03-13 12:29] LABS: Protein/creatinine Ratio 3.5; Urine Protein 94 mg/dl
--- NOTE | 2024-03-13 14:58 | PTCARENOTE ---
Patient voided 120ml clear yellow urine. Bladder scanned for 41ml pvr. Dr Tompkins aware. Per Dr, no more pvr bladder scans needed at this time. Will continue to monitor.
[2024-03-13 16:52] LABS: Troponin I 0.027 ng/ml
[2024-03-13] MEDS: COREG 6.25 MG PO (20:15)
[2024-03-13] MEDS: FLOMAX 0.4 MG PO (22:20)
[2024-03-13] MEDS: XALATAN OPHTHALMIC SOLUTION 1 DROP OPHTH (22:20)
[2024-03-13] MEDS: PROCARDIA XL (EXTENDED RELEASE) 60 MG PO (22:20)
--- NOTE | 2024-03-13 22:35 | PTCARENOTE ---
Received pt at handoff. AOX3. Tele- SR/SA. POX 100% RA. Pt offers no c/o at this time. Pt able to reposition in recliner. Pt voiding approp in urinal. Call brody w/in reach.
[2024-03-14] VITALS (9 sets, daily range): BP systolic 126–185; BP diastolic 70–96
[2024-03-14 04:18] LABS: Hemoglobin 9.2 g/dL (13.0-18.0); Mean Corp Hgb Conc. 34.1 g/dL (33.0-37.0); Mean Corpuscular Hgb 28.6 pg (27.0-31.0); Mean Corpuscular Volume 83.9 fL (80.0-94.0); Mean Platelet Volume 9.7 fL (7.4-10.4); Platelet Count 195 10^3/uL (130-400); Red Blood Cell Count 3.22 10^6/uL (4.70-6.10); Red Cell Dist. Width 13.4 % (11.5-14.5); White Blood Cell Count 5.9 10^3/uL (4.8-10.8)
[2024-03-14 04:42] LABS: ALT (SGPT) 38 U/L (0-50); AST (SGOT) 45 U/L (17-59); Albumin 3.7 g/dl (3.5-5.0); Alkaline Phosphatase 41 U/L (38-126); Blood Urea Nitrogen 42 mg/dl (9-20); Calcium 8.2 mg/dl (8.4-10.2); Carbon Dioxide 20 mmol/L (22-30); Chloride 105 mmol/L (98-107); Glucose 104 mg/dl (70-99); Magnesium 1.7 mg/dl (1.6-2.3); Potassium 3.9 mmol/L (3.5-5.1); Sodium 135 mmol/L (135-145); Total Bilirubin 0.5 mg/dl (0.2-1.3); Total Protein 6.7 g/dl (6.3-8.2); eGFR 14.42
--- NOTE | 2024-03-14 08:22 | W.PN.HOSP.TC ---
Today's Communication/Plan
-
ECHO Friday
diuresis per renal
apprec all consultants' input
Assessment / Plan
Assessment / Plan
pt is an 78 year old male
Right Upper Extremity Edema--Likely due to volume overload, less likely DVT and US negative--Elevate right arm above level of heart--deferring diuresis to renal
Volume Overload-- Pt presents with penile swelling and RUE edema--BNP 1160-- deferring diuresis to renal--watch creat -Unclear whether volume overload due to poor renal clearance from progression of disease or heart failure (diastolic from 2019
echo)--update echo--apprec cards/renal
TORSTEN on CKD IV--unclear if cardiorenal vs renal disease progression--October 2023 creat was 2.8-- CT a/p mild right hydro nephrosis and possible cystitis (alicea cath unable to be placed due to coiling per nurse)--apprec urology and renal input- Avoid
nephrotoxics agents---according to urology, pt with 1 kidney
Hydronephrosis/Hx BPH- CT imaging as above- Likely contributing to above--apprec Urology-- wanted to hold off on alicea since pt empties bladder-- Continue home Flomax
Questionable Cystitis - Afebrile. No leukocytosis--hold on abx
Pericardial Effusion- Mod Pericardial effusion on CT imaging (but usually overread)--apprec cards input--ECHO Friday
Pleural Effusion- Mod right effusion, small left effusion on CT a/p, not obvious on CXR- No RR complaints or oxygen requirements- Consider repeat imaging-- No indication for thora at this time.
CAD, HTN/HLD- Reports hx MA/stent- Continue home aspirin/statin/BB/Nifedipine- Meds need reconciliation: Pt does not know BB dose, Hector Mosher will bring in
Renal Ca - hx L Nephrectomy noted.
Glaucoma - Continue home eye drops
DVT ppx: Heparin
Code Status: Full
apparently, pt does not follow special diet as asking why he is restricted
Anticipated Discharge: 24 - 48 hours
Subjective/Interval History
-
Date of Service: March 14, 2024
pt sitting in the chair and wants a bath
Objective Data
-
Labs:
Laboratory Results
03/14/24
04:01
WBC 5.9
Hgb 9.2 L
Hct 27.0 L
Plt Count 195
Sodium 135
Potassium 3.9
Chloride 105
Carbon Dioxide 20 L
BUN 42 H
Creatinine 4.0 H
Glucose 104 H
Calcium 8.2 L
Total Bilirubin 0.5
AST 45
ALT 38
Alkaline Phosphatase 41
Vital Signs:
max temp for 24 hours
03/13/24
18:56
Temp 98.8 F
Vital Signs
Temp Pulse Resp BP Pulse Ox
98 F 77 20 134/70 99
03/14/24 07:25 03/14/24 04:00 03/14/24 07:25 03/14/24 03:31 03/14/24 07:25
I&O
03/13/24 03/14/24 03/15/24
06:59 06:59 06:59
Output Total 100 / 100 1055 / 1055
Balance -100 / -100 -1055 / -1055
Review of Systems
-
All other systems: Reviewed and negative
Physical Exam
-
General: Well Developed, Well Nourished and No Apparent Distress
HEENT: Normocephalic and Atraumatic
Respiratory: Clear to Auscultation; Negative Wheezes or Rhonchi
Cardiac: Regular Rhythm and S1/S2; Negative Murmur
GI: Soft, Nontender, Nondistended and Normal Bowel Sounds
Musculoskeletal: Other (bilateral AKAs--right arm still a bit swollen)
Neuro: Awake
[2024-03-14] MEDS: PROCARDIA XL (EXTENDED RELEASE) 30 MG PO (08:49)
[2024-03-14] MEDS: ASPIR LOW (ENTERIC COATED) 81 MG PO (08:50)
[2024-03-14] MEDS: COREG 6.25 MG PO ×2 (08:50→20:09)
[2024-03-14] MEDS: HEPARIN 5000 UNITS SC (08:50)
[2024-03-14] MEDS: CRESTOR 10 MG PO (08:50)
[2024-03-14] MEDS: TRUSOPT 2% OPHTHALMIC SOLUTION 1 DROP OPHTH ×2 (08:51→20:10)
[2024-03-14] MEDS: ALPHAGAN 0.2% EYE DROPS 1 DROP OPHTH ×2 (08:51→20:11)
--- NOTE | 2024-03-14 09:35 | W.PN.NEPH.PH ---
Today's Communication / Plan
-
Lasix was not given yesterday will provide Lasix
follow bmp
Assessment/Plan
-
Impression:
Acute kidney injury
Chronic kidney disease stage IV with baseline creatinine of 2,8
Penis and right upper extremity edema/volume overload
Hydronephrosis
Cystitis
Pericardial and pleural effusion
Coronary artery disease
Hypertension
Peripheral vascular disease
Renal cancer with history of left nephrectomy
Plan:
-may likely require PCN in setting of possible right hydronephrosis and obstructive uropathy, note reviewed
-UOP 880cc
-Urinalysis notes 3+ albuminuria which is consistent with prior history: Will check urine protein to creatinine ratio given edema: 3.5 grams up/ucr
-Patient hypertensive with history of difficult to control hypertension, will provide hydralazine if blood pressure remains elevated over next 24 hours
-Echo to be obtained re: volume overload
-Agree with diuresis at 40 mg IV daily
-Urology to investigate hydronephrosis and penis edema
-No acute dialysis requirement today
-
-
Date of Service: March 14, 2024
CC / HPI / ROS
-
Chief Complaint:
TORSTEN
History of Present Illness:
creatinine unchanged
hemodynamically stable
Review of Systems:
Nonoliguric
No chest pain or shortness of breath
Labs
-
Labs:
WBC 5.9 10^3/uL (4.8-10.8) 03/14/24 04:01
RBC 3.22 10^6/uL (4.70-6.10) L 03/14/24 04:01
Hgb 9.2 g/dL (13.0-18.0) L 03/14/24 04:01
Hct 27.0 % (39.0-52.0) L 03/14/24 04:01
Plt Count 195 10^3/uL (130-400) 03/14/24 04:01
Sodium 135 mmol/L (135-145) 03/14/24 04:01
Potassium 3.9 mmol/L (3.5-5.1) 03/14/24 04:01
Chloride 105 mmol/L (98-107) 03/14/24 04:01
Carbon Dioxide 20 mmol/L (22-30) L 03/14/24 04:01
BUN 42 mg/dl (9-20) H 03/14/24 04:01
Creatinine 4.0 mg/dL (0.7-1.3) H 03/14/24 04:01
eGFR 14.42 03/14/24 04:01
Glucose 104 mg/dl (70-99) H 03/14/24 04:01
Calcium 8.2 mg/dl (8.4-10.2) L 03/14/24 04:01
Grq-B-Siqhlyuehmt Pept 1160 pg/ml 03/13/24 00:17
Albumin 3.7 g/dl (3.5-5.0) 03/14/24 04:01
Physical Exam
-
Vital Signs:
Vital Signs
Temp Pulse Resp BP Pulse Ox
98 F 86 20 138/77 98
03/14/24 07:25 03/14/24 09:00 03/14/24 07:25 03/14/24 08:50 03/14/24 08:30
Cardiovascular:: Regular rate and rhythm
Respiratory:: Bilateral: Coarse
Lung Excursion:: Normal
Abdomen:: Nontender and Soft
Extremity Edema:: None: Bilateral: (Bilateral AKA noted edema of right upper extremity and penis)
Stevenson Catheter: No
[2024-03-14] MEDS: LASIX 40 MG IV (10:57)
[2024-03-14] MEDS: FLUSH (NSS) 1 FLUSH IV (11:01)
--- NOTE | 2024-03-14 12:35 | W.PN.CD ---
Today's Communication / Plan
-
-Likely acute HFpEF in the setting of CKD (worsening acute on chronic CKD with baseline of around 2.0-3.0, currently 4.0).
-Last echocardiogram on 09/06/2019 revealed an LVEF of 65% with mild to moderate mitral regurgitation.
-Will update echocardiogram tomorrow.
-Lasix 40 mg IV daily; Nephrology following.
-Blood pressure now controlled (changed from metoprolol to tartrate to tartrate to Coreg); continue current medication regimen.
Impression / Plan
-
77-year-old patient well-known to Dr. Aguillon with history of CAD, PAD (bilateral AKA's), hypertension, mitral regurgitation, right carotid stenosis (followed by Dr. Virgen), hyperlipidemia and stage IIIb CKD ( prior renal cell cancer and left
nephrectomy).
Volume overload:
-Most likely secondary to acute HFpEF in the setting of CKD (worsening acute on chronic CKD with baseline of around 2.0-3.0, currently 4.0).
-Last echocardiogram on 09/06/2019 revealed an LVEF of 65% with mild to moderate mitral regurgitation.
-Will update echocardiogram tomorrow.
-Lasix 40 mg IV daily; Nephrology following.
-He has bilateral pleural effusions and possible pericardial effusion noted on CT. BNP was elevated.
Pericardial effusion:
-IV Lasix as above.
CAD:
-Denies anginal symptoms.
-Continue medical therapy
-statin titration limited with renal function- on rosuvastatin and zetia
TORSTEN on CKD 4:
-Creat now in 4 range. Previously 2.8/2.9 range in September and October 2023
-Nephrology following.
Mitral regurgitation:
-Previously known to be mild to moderate with normal EF.
-Update echocardiogram tomorrow.
PAD:
-followed by Dr. Virgen
HTN:
-Blood pressure now controlled (changed from metoprolol to tartrate to tartrate to Coreg); continue current medication regimen.
Physical Exam
Vital Signs/Labs
Vital Signs
Temp Pulse Resp BP Pulse Ox
98.2 F 75 16 126/70 98
03/14/24 11:02 03/14/24 11:02 03/14/24 11:02 03/14/24 11:02 03/14/24 08:30
03/13/24 03/14/24 03/15/24
06:59 06:59 06:59
Actual Weight 49 kg
03/14/24 04:01
03/14/24 04:01
Magnesium 1.7 mg/dl (1.6-2.3) 03/14/24 04:01
03/13/24
00:17
Sso-T-Zihfzeyblfr Pept 1160
LAB Results
03/13/24 03/13/24 03/13/24
04:30 10:47 16:17
Troponin I 0.020 0.024 0.027
Physical Exam
Constitutional: No acute distress and Comfortable
EENT: Anicteric
Cardiovascular: Rhythm & rate is regular, Systolic murmur absent, S1S2 is normal and Other (Bilateral AKA's)
Respiratory: Respiratory effort normal, Wheeze Absent and Crackles Present (Bibasilar)
GI: Soft
Neuro/Psych: AO x 3
Data Reviewed
-
Date of Service: March 14, 2024
EKG: Tracing Personally Visualized and interpreted (Sinus rhythm)
Labs: Labs Reviewed by me
--- NOTE | 2024-03-14 12:58 | W.PN.URO.CBU ---
Today's Communication / Plan
-
no gu interventio at this time
Assessment / Plan
-
TORSTEN with 800 cc urine pt vcannot have with solitary rt kidney a high grade onbstruction He can have superimposed med shani dsease but he does have rt mild hydro the possblities are hig pressurevoiding from bladder neck contracture of radiatioo
orbut doubt anatomic hig grade obstrctio will follow hospitaltand nephrology input but if creatine does not griselda to baseline will consider dilation of bladder wright
Diagnosis
-
Date of Service: March 14, 2024
-
Patient Diagnosis:
Post Op Day:
Patient Diagnosis CKD 3 BUT CREATINE 2.8 TO 4.1 solitary rt kidney with mild hydto ct scan
bladder empties but possib;e cystis post xrt for acp. Pt with no voiding probelms empties with good stream
Post Op Day:
Subjective
-
goodstream voided 800 cc
Objective
-
Vital Signs
Temp Pulse Resp BP Pulse Ox
98.2 F 75 16 126/70 98
03/14/24 11:02 03/14/24 11:02 03/14/24 11:02 03/14/24 11:02 03/14/24 08:30
Intake and Output
03/13/24 03/14/24 03/15/24
06:59 06:59 06:59
Output Total 100 / 100 1055 / 1055 200 / 200
Balance -100 / -100 -1055 / -1055 -200 / -200
Output:
Urine, Voided 100 / 100 1055 / 1055 200 / 200
Laboratory Results
03/14/24 04:01
03/14/24 04:01
Review of Systems
-
: No Symptoms
Physical Exam
-
General - well developed, well nourished, no acute distress
Chest - clear bilaterally
Abdomen - soft, non-tender, positive bowel sounds, no CVAT, no incisional pain or distention
Genitalia - normal
Rectal - normal
Skin - warm & dry with no rash
Neuro - AOx3, no motor deficits
Extremities - no clubbing, no cyanosis, no edema
Incision - clean, dry
Dressing - clean, dry, intact
Care Review
Data Reviewed
Discussed with: Hospitalist and Internal Medicine (nephrology)
--- NOTE | 2024-03-14 16:56 | PTCARENOTE ---
received patient this am sitting in chair,dozing on and off. monitor shows NSR, VSS. INT left arm,flushes well. lung collins diminished, I/S 1000. right arm remains + 2. patient uses urinal. voices no concerns at this time.
[2024-03-14] MEDS: HEPARIN SC (20:09)
[2024-03-14] MEDS: FLOMAX 0.4 MG PO (22:23)
[2024-03-14] MEDS: PROCARDIA XL (EXTENDED RELEASE) 60 MG PO (22:23)
[2024-03-14] MEDS: XALATAN OPHTHALMIC SOLUTION 1 DROP OPHTH (22:23)
--- NOTE | 2024-03-14 22:56 | PTCARENOTE ---
Received patient at handoff. Alert and oriented x3. Tele- SR, HR 70s-80s. Assessment completed as documented, see worklist. Patient currently has no complaints. Currently in bed, call skinner within reach.
[2024-03-15] VITALS (13 sets, daily range): BP systolic 118–185; BP diastolic 63–100
[2024-03-15 03:32] LABS: Hematocrit 28.2 % (39.0-52.0); Hemoglobin 9.9 g/dL (13.0-18.0); Mean Corp Hgb Conc. 35.1 g/dL (33.0-37.0); Mean Corpuscular Hgb 29.2 pg (27.0-31.0); Mean Corpuscular Volume 83.2 fL (80.0-94.0); Mean Platelet Volume 10.5 fL (7.4-10.4); Platelet Count 256 10^3/uL (130-400); Red Blood Cell Count 3.39 10^6/uL (4.70-6.10); Red Cell Dist. Width 13.5 % (11.5-14.5); White Blood Cell Count 5.3 10^3/uL (4.8-10.8)
[2024-03-15 03:54] LABS: Blood Urea Nitrogen 43 mg/dl (9-20); Calcium 8.1 mg/dl (8.4-10.2); Carbon Dioxide 18 mmol/L (22-30); Chloride 103 mmol/L (98-107); Glucose 99 mg/dl (70-99); Magnesium 1.7 mg/dl (1.6-2.3); Potassium 3.8 mmol/L (3.5-5.1); Sodium 134 mmol/L (135-145)
[2024-03-15 03:59] LABS: NT-proBNP 1060 pg/ml
[2024-03-15] MEDS: ASPIR LOW (ENTERIC COATED) 81 MG PO (08:12)
[2024-03-15] MEDS: ALPHAGAN 0.2% EYE DROPS 1 DROP OPHTH ×2 (08:12→19:41)
[2024-03-15] MEDS: COREG 6.25 MG PO ×2 (08:12→19:41)
[2024-03-15] MEDS: CRESTOR 10 MG PO (08:12)
[2024-03-15] MEDS: PROCARDIA XL (EXTENDED RELEASE) 30 MG PO (08:12)
[2024-03-15] MEDS: TRUSOPT 2% OPHTHALMIC SOLUTION 1 DROP OPHTH ×2 (08:13→19:42)
[2024-03-15] MEDS: HEPARIN SC ×2 (08:13→19:41)
--- NOTE | 2024-03-15 08:20 | W.PN.CD ---
Today's Communication / Plan
-
echo today
urologic eval and nephrology eval continues
Impression / Plan
-
77-year-old patient well-known to Dr. Aguillon with history of CAD, PAD (bilateral AKA's), hypertension, mitral regurgitation, right carotid stenosis (followed by Dr. Virgen), hyperlipidemia and stage IIIb CKD (prior renal cell cancer and left
nephrectomy).
Volume overload:
-seems more linked to progressive CKD rather than CHF
-no sob
-does have risk for HFpef
-Last echocardiogram on 09/06/2019 revealed an LVEF of 65% with mild to moderate mitral regurgitation.
-Will update echocardiogram tomorrow.
-Lasix 40 mg IV daily; Nephrology following will allow them to dose.
-He has bilateral pleural effusions and possible pericardial effusion noted on CT. BNP was elevated.
Pericardial effusion:
-evaluate with echo.
CAD:
-Denies anginal symptoms.
-Continue medical therapy
-statin titration limited with renal function- on rosuvastatin and zetia
TORSTEN on CKD 4:
-Creat now in 4 range. Previously 2.8/2.9 range in September and October 2023
-Nephrology following.
Mitral regurgitation:
-Previously known to be mild to moderate with normal EF.
-Update echocardiogram tomorrow.
PAD:
-followed by Dr. Virgen
HTN:
-Blood pressure now controlled (changed from metoprolol to tartrate to tartrate to Coreg); continue current medication regimen.
Hydronephrosis: per
Subjective:
he has no cp or sob. He has never had any sob. May concern was swelling which is improved.
Physical Exam
Vital Signs/Labs
Vital Signs
Temp Pulse Resp BP Pulse Ox
98.1 F 76 20 167/76 100
03/15/24 06:58 03/15/24 08:12 03/15/24 06:58 03/15/24 08:12 03/15/24 06:58
03/14/24 03/15/24 03/16/24
06:59 06:59 06:59
Actual Weight 47.582 kg
03/15/24 03:12
03/15/24 03:12
Magnesium 1.7 mg/dl (1.6-2.3) 03/15/24 03:12
03/13/24 03/15/24
00:17 03:12
Kuj-I-Bncaosntfhp Pept 1160 1060
LAB Results
03/13/24 03/13/24 03/13/24
04:30 10:47 16:17
Troponin I 0.020 0.024 0.027
Physical Exam
Constitutional: No acute distress
Cardiovascular: Rhythm & rate is regular, Pedal edema is absent, JVD pressure is normal, Systolic murmur absent and Diastolic murmur absent
Respiratory: Respiratory effort normal, Lungs clear to auscul., Wheeze Absent, Crackles Absent and Rhonchi Absent
Neuro/Psych: AO x 3
Data Reviewed
-
Date of Service: March 15, 2024
EKG: Other (sinus pvcs)
--- NOTE | 2024-03-15 09:54 | PTCARENOTE ---
received patient this am sitting up in chair. reviewed plan to day, Echo and kidney U/S. monitor shows NSR, VSS, patient has no complaints at this time.
--- NOTE | 2024-03-15 10:45 | CM ---
Reviewed chart. Met with Mr. Boogie to review discharge plans. He states prior to admission he resides alone but he has family members rotate staying with him. He states he has ramps to enter the home. He states he niece assist with his adls.
He states prior to admission he can transfer himself to his wheelchair. He states he uses his power wheelchair inside the home. He states he recently had bought a scooter to go outside in this neighborhood. He states he has a power wheelchair,
manual wheelchair, scooter, and stair glide. He states he only goes to the second floor to shower. His full bathroom is on the second floor. He states he has a powder room on the first floor. [facility] [place] [facility]. He states he does not have any VNA Services in the home. He is not sure he wants VNA Services. Will need to see his current functional level to see if he will have any skilled care needs. Medical work-up in progress. The discharge plan is
to return home with family support when medically stable.
Received consult for advanced directive/living will. Reviewed advanced directive with him. He is not sure if he is interested in advanced directive. He was willing to take the information and forms and review with his family.
--- NOTE | 2024-03-15 10:55 | W.PN.HOSP.TC ---
Addendum entered and electronically signed by Asim Rodriguez MD 03/15/24 20:28:
I saw and evaluated the patient. I reviewed the resident�s note and agree with findings and plan as documented in the resident�s note.
HD stable and not hypoxic currently.
ECHO raised concern of HD compromising pericardial effusion. DW Cards this am - went to have a percardiocentesis with RHC and measurement of PCWP pre and post procedure - it showed improvement. Will follow Cr response. Lasix per nephro fornow.
DW cards this am and with photographer's model this afternoon.
Total time of care 52 min
Original Note:
Today's Communication/Plan
-
Patient is being taken for pericardiocentesis and right heart cath. Continue diuresis per nephro. Awaiting further instructions from cards
Assessment / Plan
Assessment / Plan
pt is an 78 year old male
Right Upper Extremity Edema--Likely due to volume overload, less likely DVT and US negative--Elevate right arm above level of heart--continue diuresis per renal
Volume Overload-- Pt presents with penile swelling and RUE edema--BNP 1060-- deferring diuresis to renal--watch creat. Today 4.2 - Volume overload likely due to cardiac -- Echo showed moderate anterior pericardial effusion with evidence of
hemodynamic compromise as the RV intermittently not expanding -- Plans for pericardiocentesis and R heart cath per cards
TORSTEN on CKD IV--unclear if cardiorenal vs renal disease progression--October 2023 creat was 2.8-- CT a/p mild right hydro nephrosis and possible cystitis (alicea cath unable to be placed due to coiling per nurse)-Renal and urology following- Avoid
nephrotoxics agents---according to urology, pt with 1 kidney -- Urology will consider dilating the bladder neck and place a alicea if cr does not decrease
Hydronephrosis/Hx BPH- CT imaging as above- Likely contributing to above--apprec Urology-- wanted to hold off on alicea since pt empties bladder-- Continue home Flomax
Questionable Cystitis - Afebrile. No leukocytosis--hold on abx
Pericardial Effusion- Mod Pericardial effusion on CT imaging --apprec cards input--Echo done -- Cardiology taking pt for pericardiocentesis and right heart cath
Pleural Effusion- Mod right effusion, small left effusion on CT a/p, not obvious on CXR- No RR complaints or oxygen requirements- Consider repeat imaging-- No indication for thora at this time.
CAD, HTN/HLD- Reports hx LA/stent- Continue home aspirin/statin/BB/Nifedipine- Meds need reconciliation: Pt does not know BB dose, Hector oMsher will bring in
Renal Ca - hx L Nephrectomy noted.
Glaucoma - Continue home eye drops
DVT ppx: Heparin
Code Status: Full
apparently, pt does not follow special diet as asking why he is restricted
Anticipated Discharge: > 48 hours
Subjective/Interval History
-
Date of Service: March 15, 2024
Objective Data
-
Labs:
Laboratory Results
03/15/24
03:12
WBC 5.3
Hgb 9.9 L
Hct 28.2 L
Plt Count 256 D
Sodium 134 L
Potassium 3.8
Chloride 103
Carbon Dioxide 18 L
BUN 43 H
Creatinine 4.2 H*
Glucose 99
Calcium 8.1 L
Vital Signs:
Vital Signs
Temp Pulse Resp BP Pulse Ox
98.1 F 76 20 167/76 98
03/15/24 06:58 03/15/24 08:12 03/15/24 06:58 03/15/24 08:12 03/15/24 08:30
I&O
03/14/24 03/15/24 03/16/24
06:59 06:59 06:59
Output Total 1055 / 1055 750 / 750
Balance -1055 / -1055 -750 / -750
Review of Systems
-
History Source: Patient
Respiratory: Reports No Symptoms
Cardiac: Reports No Symptoms
Abdomen/GI: Reports No Symptoms
Genitourinary: Reports No Symptoms
Neuro: Reports No Symptoms
Physical Exam
-
General: Well Developed and No Apparent Distress
Respiratory: Clear to Auscultation
Cardiac: Regular Rhythm and S1/S2
GI: Soft, Nontender and Nondistended
Musculoskeletal: No Edema
Neuro: AO x 3
Psych: Calm
--- NOTE | 2024-03-15 10:59 | WOUNDNOTE ---
RADHA RN NOTE: Patient sitting in chair, nurse Kathy reports sacrum pink but not open, can cancel consult.
--- NOTE | 2024-03-15 11:19 | PTCARENOTE ---
echo completed at bedside.
--- NOTE | 2024-03-15 12:30 | W.PN.NEPH.PH ---
Today's Communication / Plan
-
- okay for lasix today
Assessment/Plan
-
Impression:
Acute kidney injury
Chronic kidney disease stage IV with baseline creatinine of 2,8
Penis and right upper extremity edema/volume overload
Hydronephrosis
Cystitis
Pericardial and pleural effusion
Coronary artery disease
Hypertension
Peripheral vascular disease
Renal cancer with history of left nephrectomy
Plan:
-may likely require PCN in setting of possible right hydronephrosis and obstructive uropathy, note reviewed
-UOP 550cc
-Urinalysis notes 3+ albuminuria which is consistent with prior history: Will check urine protein to creatinine ratio given edema: 3.5 grams up/ucr
-Patient hypertensive with history of difficult to control hypertension, hydral deferred today as BP ranginf from 120-160 systolics this AM
-Echo to be obtained re: volume overload
-Agree with diuresis at 40 mg IV daily
-Urology to investigate hydronephrosis and penis edema
-No acute dialysis requirement today
-
-
Date of Service: March 15, 2024
CC / HPI / ROS
-
Chief Complaint:
TORSTEN
History of Present Illness:
creatinine unchanged
hemodynamically stable
Review of Systems:
Nonoliguric
No chest pain or shortness of breath
Labs
-
Labs:
WBC 5.3 10^3/uL (4.8-10.8) 03/15/24 03:12
RBC 3.39 10^6/uL (4.70-6.10) L 03/15/24 03:12
Hgb 9.9 g/dL (13.0-18.0) L 03/15/24 03:12
Hct 28.2 % (39.0-52.0) L 03/15/24 03:12
Plt Count 256 10^3/uL (130-400) D 03/15/24 03:12
Sodium 134 mmol/L (135-145) L 03/15/24 03:12
Potassium 3.8 mmol/L (3.5-5.1) 03/15/24 03:12
Chloride 103 mmol/L (98-107) 03/15/24 03:12
Carbon Dioxide 18 mmol/L (22-30) L 03/15/24 03:12
BUN 43 mg/dl (9-20) H 03/15/24 03:12
Creatinine 4.2 mg/dL (0.7-1.3) H* 03/15/24 03:12
eGFR 13.60 03/15/24 03:12
Glucose 99 mg/dl (70-99) 03/15/24 03:12
Calcium 8.1 mg/dl (8.4-10.2) L 03/15/24 03:12
Gad-P-Pxbepmqszqf Pept 1060 pg/ml 03/15/24 03:12
Albumin 3.7 g/dl (3.5-5.0) 03/14/24 04:01
Physical Exam
-
Vital Signs:
Vital Signs
Temp Pulse Resp BP Pulse Ox
98.4 F 76 20 167/76 99
03/15/24 10:58 03/15/24 08:12 03/15/24 10:58 03/15/24 08:12 03/15/24 10:58
Cardiovascular:: Regular rate and rhythm
Respiratory:: Bilateral: CTA
Lung Excursion:: Normal
Abdomen:: Nontender and Soft
Bowel Sounds:: Normal
Extremity Edema:: None: Bilateral: (None: Bilateral: (Bilateral AKA noted edema of right upper extremity and penis))
Stevenson Catheter: No
[2024-03-15] MEDS: LASIX 40 MG IV (13:36)
[2024-03-15] MEDS: FLUSH (NSS) 1 FLUSH IV (13:37)
--- NOTE | 2024-03-15 13:59 | PTCARENOTE ---
TT Dr. Madison about cr 4.2, she is aware and ok to give IV lasix.
--- NOTE | 2024-03-15 14:19 | PTCARENOTE ---
Dr. Aguillon in room explaining results of Echo. patient is going for a pericardiocentesis and right heart cath today. patient remains NPO.
--- NOTE | 2024-03-15 14:30 | W.PN.UPDATE ---
Update Note
Progress Note Update
Echo with moderate anterior pericardial effusion with e/o HD compromise as RV intermittently not expanding all during diastole. Discussed with Dr. Stanley, will arrange for pericardiocentesis and right heart cath to further assess his hemodynamic
status. I explained to the patient that this could be due to his heart or also from his renal failure. He understands.
--- NOTE | 2024-03-15 15:09 | PTCARENOTE ---
to agriculture laboratory technician via bed accompanied by staff.
--- NOTE | 2024-03-15 16:37 | ITS.CL.CATH ---
Bias Binding Folder - Catheterization
Cardiac Catheterization
Procedure Report:
RIGHT HEART CATHETERIZATION AND PERICARDIOCENTESIS
Date of Procedure: 03/15/2024
Referring: Milagro Aguillon M.D.
INDICATION: Pericardial effusion, early tamponade.
ACCESS:
5 [place] right common femoral vein using a modified Seldinger technique with a micropuncture kit under ultrasound guidance.
6 [place]alan subxiphoid approach using a modified Seldinger technique with a micropuncture kit under ultrasound guidance.
CATHETERS:
5 [place]alan balloon wedge.
6 [place]alan pericardiocentesis pigtail catheter.
PROCEDURE:
The patient was prepped and draped in standard sterile fashion including copious cleansing of the subxiphoid/epigastric abdomen, anterior chest wall and left lateral chest wall in addition to the right femoral crease. The area of the right femoral
crease was anesthetized with 1% lidocaine. Under ultrasound guidance, the right common femoral vein was accessed using a micropuncture needle, which was this exchanged for a micropuncture sheath. A 5 [place]alan sheath was inserted into the femoral
vein. A 5 [place]alan balloon wedge catheter was advanced through the sheath into the superior vena cava. An SVC oxygen saturation was drawn. The balloon wedge catheter was advanced into the pulmonary artery and a pulmonary artery oxygen saturation was
drawn. Arterial oxygen saturation was assumed from pulse oximetry. Cardiac output was calculated using the Alise equation. The PA, wedge, RV and RA pressures were measured.
We then turned our attention to the pericardiocentesis. Echocardiogram was used to ascertain the best approach vector. A(n) subxiphoid approach was selected. The epigastrium was anesthetized with 1% lidocaine. Under ultrasound guidance, a
micropuncture needle was advanced into the pericardial space under negative pressure. After obtaining flashback of pericardial fluid, the micropuncture wire was advanced into the pericardial space and the needle was removed. The micropuncture sheath
was advanced over the wire and the wire and dilator were removed. Agitated saline was injected through the micropuncture sheath confirming its presence in the pericardial space on echocardiography. A 0.035 inch J-wire was advanced through the
micropuncture sheath and into the pericardial space. The micropuncture sheath was removed and a 6 [place]alan sheath was advanced over the 0.035 inch wire. A pigtail catheter was advanced through the sheath over the J-wire and placed in the pericardial
space. The J-wire was removed. The pericardial pressure was measured. A sufficient sample of pericardial fluid was removed and sent for laboratory testing (hemoglobin, hematocrit, white blood cell count, LDH, albumin, total protein, cytology and
culture). The pigtail catheter was then connected to a Vacutainer and the pericardial space was evacuated. Serial echocardiography confirmed reduction in the pericardial effusion from severe to trace. All evidence of tamponade was removed. The 6
[place] sheath was sutured into place. The pigtail catheter was likewise sutured into place then curled around the sheath and covered by a sterile Tegaderm. Repeat pericardial pressure was measured, confirming significant reduction. The pigtail
catheter was then connected to a ANDRES drain to suction. The patient reported significant improvement in their shortness of breath.
After ensuring complete drainage of the pericardium, the filling pressures were remeasured. The balloon wedge catheter was removed. The 5 Guatemalan sheath was removed and manual pressure was held for hemostasis.
Pre-pericardiocentesis:
Weight (kg): 47.2
PA (s/d/x mmHg): 36/20/25
PCWP (a/v/x mmHg): 22//20
RV (s/x mmHg): 36/15
RA (a/v/x mmHg): 18/16/15
SVC SvO2 (%): 65.9
IVC SvO2 (%): Not obtained.
RA SvO2 (%): Not obtained.
RV SvO2 (%): Not obtained.
PA SvO2 (%): 64.4
SaO2 (%): 100.0 (assumed)
Hbg (g/dL): 9.4
Alise
CO (liters/minute): 2.51
CI (liters/minute/m2): 2.52
Thermodilution
CO (liters/minute): Not performed.
CI (liters/minute/m2): Not performed.
TPG (mmHg): 5
PVR (Kuo Units): 1.99
AVO2 Difference (Volume %): 4.55
Pericardiocentesis Procedure Details:
Approach: Subxiphoid.
Sheath/Drain size (Fr) 6
Pericardial Volume (mL): 270
Effusion type: Serous.
Non-effusion blood loss (mL): None.
Pericardial pressures
Pre drainage (mmHg): 14
Post drainage (mmHg): 3
Post-Pericardiocentesis:
PA (s/d/x mmHg):
PCWP (a/v/x mmHg):
RV (s/x mmHg): 09/06
RA (a/v/x mmHg): 06/21/10
Radiation (mGy): 18.58
DAP (cm2.Gy): 3.2354
Fluoroscopy time (minutes): 3.7
CONCLUSION:
1. Moderate to large anterior pericardial effusion with significant elevation in pericardial pressure, status post successful pericardiocentesis for 270 cc of serous fluid and reduction in pericardial pressure from 14 mmHg to 3 mmHg.
2. Moderately elevated filling pressures (PCWP = 20 mmHg at 47.2 kg), normalized after pericardiocentesis (PCWP = 15 mmHg).
RECOMMENDATIONS:
1. Expectant management after right heart catheterization via right common femoral venous approach.
2. Expectant management after pericardiocentesis via subxiphoid approach.
3. Monitor pericardial drainage.
4. Pericardial studies have been ordered and sent to the lab.
Copy to: Milagro Aguillon M.D., Chyna Lowe M.D.
Alex Moran D.O., [facility], FACP
[2024-03-15 17:42] LABS: LDH 324 U/L (120-246)
[2024-03-15 17:46] LABS: Body Fluid Protein 4.1 g/dl
[2024-03-15 17:49] LABS: Body Fluid Glucose 95 mg/dl
[2024-03-15 17:58] LABS: Body Fluid LDH 197 U/L
--- NOTE | 2024-03-15 20:09 | PTCARENOTE ---
Received pt at handoff. AOX3. Tele- SR. Assessment completed as documented. Middle chest w/ pericardial drain. Dsg is c/d/i. R groin is c/d/i. Pt has no c/o at this time. Currently in bed; call brody w/in reach.
[2024-03-15 20:11] LABS: Body Fluid Hematocrit 0 %; Body Fluid WBC 1059 /CUMM
[2024-03-15 20:20] LABS: Body Fluid Second Tech DW
[2024-03-15 21:25] LABS: Body Fluid Mononuclear 98.6 %; Body Fluid Polymorphonuclear 1.4 %
[2024-03-15] MEDS: PROCARDIA XL (EXTENDED RELEASE) 60 MG PO (22:11)
[2024-03-15] MEDS: XALATAN OPHTHALMIC SOLUTION 1 DROP OPHTH (22:11)
[2024-03-15] MEDS: FLOMAX 0.4 MG PO (22:11)
[2024-03-16] VITALS (10 sets, daily range): BP systolic 120–169; BP diastolic 65–87
--- NOTE | 2024-03-16 02:15 | PTCARENOTE ---
Pt rang to tell RN that he was having 10/10 pain at drain site. Justin Mauricio [employer]POR[employer]AL[employer] ENGINEER notified and orders placed. Upon arrival to the room to give morphine pt reports 'i no longer have pain i think i have more of a stomachache and nausea.' Justin Mauricio updated and
orders placed. Upon arrival to pt room, pt reports 'i no longer have the pain or stomachache...it was just positional. it has passed and i dont want any of your dope.' Educated pt to tell RN if anything changes. Call brody w/in reach.
[2024-03-16 04:13] LABS: Hematocrit 30.2 % (39.0-52.0); Hemoglobin 10.4 g/dL (13.0-18.0); Mean Corp Hgb Conc. 34.4 g/dL (33.0-37.0); Mean Corpuscular Hgb 28.9 pg (27.0-31.0); Mean Corpuscular Volume 83.9 fL (80.0-94.0); Mean Platelet Volume 10.2 fL (7.4-10.4); Platelet Count 261 10^3/uL (130-400); Red Cell Dist. Width 13.2 % (11.5-14.5); White Blood Cell Count 10.8 10^3/uL (4.8-10.8)
[2024-03-16 04:38] LABS: Blood Urea Nitrogen 45 mg/dl (9-20); Calcium 7.8 mg/dl (8.4-10.2); Carbon Dioxide 18 mmol/L (22-30); Chloride 102 mmol/L (98-107); Glucose 110 mg/dl (70-99); Potassium 3.6 mmol/L (3.5-5.1); Sodium 131 mmol/L (135-145)
--- NOTE | 2024-03-16 08:49 | W.PN.HOSP.TC ---
Today's Communication/Plan
-
Hold lasix, continue to trend cr. Monitor pericardial drainage
Assessment / Plan
Assessment / Plan
pt is an 78 year old male
Right Upper Extremity Edema--Likely due to volume overload, less likely DVT and US negative--Elevate right arm above level of heart--stop diuresis per nephro
Volume Overload-- Pt presents with penile swelling and RUE edema--BNP 1060-- deferring diuresis to renal--watch creat. Today 4.2 - Volume overload likely due to cardiac -- Pericardial drain 270 cc serous fluid during procedure -- Another 100
overnight -- Pt states chest feels 'typewriter mechanic' -- card will remove drain tonight if continues to decrease -- hold lasix per nephro
TORSTEN on CKD IV--unclear if cardiorenal vs renal disease progression--October 2023 creat was 2.8-- CT a/p mild right hydro nephrosis and possible cystitis (alicea cath unable to be placed due to coiling per nurse)-- Avoid nephrotoxics agents---pt with 1
kidney -- hold lasix and trend cr per neprho -- no procedures at this time per urology
Hydronephrosis/Hx BPH- CT imaging as above- Likely contributing to above--apprec Urology-- wanted to hold off on alicea since pt empties bladder-- Continue home Flomax
Questionable Cystitis - Afebrile. No leukocytosis--hold on abx
Pericardial Effusion- Mod Pericardial effusion on CT imaging --apprec cards input--Echo done -- Pericardial fluid draining -- cards will remove drain tonight if continues to slow
Pleural Effusion- Mod right effusion, small left effusion on CT a/p, not obvious on CXR- No RR complaints or oxygen requirements- Consider repeat imaging-- No indication for thora at this time.
CAD, HTN/HLD- Reports hx CT/stent- Continue home aspirin/statin/BB/Nifedipine- Meds need reconciliation: Pt does not know BB dose, Hector Mosher will bring in
Sacral wound
-Stage 1 coccyx pressure injury
-Wound care assessed
-No immediate therapy required
-Monitor
Renal Ca - hx L Nephrectomy noted.
Glaucoma - Continue home eye drops
DVT ppx: Heparin
Code Status: Full
apparently, pt does not follow special diet as asking why he is restricted
Anticipated Discharge: > 48 hours
Subjective/Interval History
-
Date of Service: March 16, 2024
Objective Data
-
Labs:
Laboratory Results
03/16/24
03:50
WBC 10.8
Hgb 10.4 L
Hct 30.2 L
Plt Count 261
Sodium 131 L
Potassium 3.6
Chloride 102
Carbon Dioxide 18 L
BUN 45 H
Creatinine 4.2 H*
Glucose 110 H
Calcium 7.8 L
Vital Signs:
Vital Signs
Temp Pulse Resp BP Pulse Ox
98.5 F 90 16 125/87 100
03/16/24 07:49 03/16/24 07:50 03/16/24 07:50 03/16/24 07:39 03/16/24 07:51
I&O
03/15/24 03/16/24 03/17/24
06:59 06:59 06:59
Intake Total 200 / 200
Output Total 750 / 750 1450 / 1450
Balance -750 / -750 -1250 / -1250
Review of Systems
-
Respiratory: Reports No Symptoms
Cardiac: Reports No Symptoms
Abdomen/GI: Reports Abdominal Pain
Genitourinary: Reports No Symptoms
Neuro: Reports No Symptoms
Physical Exam
-
General: No Apparent Distress
Respiratory: Clear to Auscultation
Cardiac: Regular Rhythm and S1/S2; Negative Murmur or Rub
Musculoskeletal: Edema, Right Upper Extrem
Neuro: AO x 3
Psych: Calm
--- NOTE | 2024-03-16 09:03 | W.PN.URO.CBU ---
Today's Communication / Plan
-
will try to dilate bladder neck and palce vcathert await renal u/s
Assessment / Plan
-
TORSTEN with 800 cc urine pt vcannot have with solitary rt kidney a high grade onbstruction He can have superimposed med shani dsease but he does have rt mild hydro the possblities are hig pressurevoiding from bladder neck contracture of radiatioo
orbut doubt anatomic hig grade obstrctio will follow hospitaltand nephrology input but if creatine does not griselda to baseline will consider dilation of bladder wright Obtiang renal and bladder u/s may need to dilate bladder neck and see if
vpcreatinine improves await shani and bladde u/s to se if hydro stillprexsent
Diagnosis
-
Date of Service: March 16, 2024
-
Patient Diagnosis:
Post Op Day:
Patient Diagnosis:
Post Op Day:
Patient Diagnosis:
Post Op Day:
Patient Diagnosis CKD 3 BUT CREATINE 2.8 TO 4.1 solitary rt kidney with mild hydto ct scan
bladder empties but possib;e cystis post xrt for acp. Pt with no voiding probelms empties with good stream may have high pressure voiding causing backpressure on kidney also causing hydro as opposed to obstruction
Post Op Day:
Subjective
-
no new gu sxs
Objective
-
Vital Signs
Temp Pulse Resp BP Pulse Ox
98.5 F 90 16 125/87 100
03/16/24 07:49 03/16/24 07:50 03/16/24 07:50 03/16/24 07:39 03/16/24 07:51
Intake and Output
03/15/24 03/16/24 03/17/24
06:59 06:59 06:59
Intake Total 200 / 200
Output Total 750 / 750 1450 / 1450
Balance -750 / -750 -1250 / -1250
Intake:
Oral fluids 200 / 200
Output:
Drain Output (Total) 100 / 100
Middle Chest A 100 / 100
Urine, Voided 750 / 750 1350 / 1350
Other:
How many times incontinent 1
SMALL amount urine
Laboratory Results
03/16/24 03:50
03/16/24 03:50
Review of Systems
-
: No Symptoms
Physical Exam
-
General - well developed, well nourished, no acute distress
Chest - clear bilaterally
Abdomen - soft, non-tender, positive bowel sounds, no CVAT, no incisional pain or distention
Genitalia - normal
Rectal - normal
Skin - warm & dry with no rash
Neuro - AOx3, no motor deficits
Extremities - no clubbing, no cyanosis, no edema
Incision - clean, dry
Dressing - clean, dry, intact
Counseling
-
will try bredsifdeplacement alicea after returns fron u/s
Care Review
Data Reviewed
Discussed with: Cardiology and Nursing
[2024-03-16] MEDS: CRESTOR 10 MG PO (09:39)
[2024-03-16] MEDS: PROCARDIA XL (EXTENDED RELEASE) 30 MG PO (09:39)
[2024-03-16] MEDS: ASPIR LOW (ENTERIC COATED) 81 MG PO (09:39)
[2024-03-16] MEDS: LASIX 40 MG IV (09:39)
[2024-03-16] MEDS: COREG 6.25 MG PO ×2 (09:40→20:14)
[2024-03-16] MEDS: ALPHAGAN 0.2% EYE DROPS 1 DROP OPHTH ×2 (09:40→20:22)
[2024-03-16] MEDS: TRUSOPT 2% OPHTHALMIC SOLUTION 1 DROP OPHTH ×2 (09:41→20:22)
[2024-03-16] MEDS: HEPARIN SC ×3 (09:43→20:17)
--- NOTE | 2024-03-16 10:16 | W.PN.UPDATE ---
Update Note
Progress Note Update
I saw and evaluated the patient. I reviewed the resident�s note and agree with findings and plan as documented in the resident�s note.
Patient had a pericardiocentesis yesterday and has pericardial drainage in place.Denies CP or SOB.On RA.
He had his renal ultrasound this morning.
Since admission he says his right arm swelling and his penile swelling has improved. He lost 9 pounds so far.
Chest with decreased breath sounds at the bases but no added soundS.
270 mL out with pericardiocentesis yesterday and so far is 100 mL in the pericardial drainage system. Post pericardiocentesis improvement in PCWP noted. There is no change in creatinine. Unclear if the pericardial tamponade physiology is causing
renal dysfunction. Suspect pericardial effusion may be related to renal dysfunction itself; fluid data pending. Patient also has small pleural effusions. Also came with fluid overload with right arm swelling and scrotal/penile swelling.
Continue the pericardial drainage and diuretics.
Follow ultrasound of the bladder and the kidneys and depending consider urinary diversion. Urology following.
Total time spent on today's encounter was 52 minutes which included time spent in counseling the patient regarding diagnosis and treatment plan as listed above, goals of care, and symptom management. Case was discussed with nursing staff,
specialists . All labs and imaging personally reviewed by me. Remainder the time spent in detailed review of previous records, lab data, imaging, and other medical provider documentation.
--- NOTE | 2024-03-16 11:06 | W.PN.URO.CBU ---
Today's Communication / Plan
-
NO PROCDURE AT THIS TIME
Assessment / Plan
-
TORSTEN with 800 cc urine did u/s NO HYDRO REVIEWED CA SCAN IN SECOND THOUGHT NO HYDROON INITIAL SCAN HEREFORE SEE NO ADVANTGE TO INSTRUMENTPT FOR MONTERO PLACEMNT MINDING THAT PT HAS NO VOIDING COMPLAINTS
Diagnosis
-
Date of Service: March 16, 2024
-
Patient Diagnosis:
Post Op Day:
Patient Diagnosis:
Post Op Day:
Patient Diagnosis:
Post Op Day:
Patient Diagnosis:
Post Op Day:
Patient Diagnosis CKD 3 BUT CREATINE 2.8 TO 4.1 solitary rt kidney with mild hydto ct scan
bladder empties but possib;e cystis post xrt for acp. Pt with no voiding probelms empties with good stream may have high pressure voiding causing backpressure on kidney also causing hydro as opposed to obstruction
Post Op Day:
Subjective
-
asx
Objective
-
Vital Signs
Temp Pulse Resp BP Pulse Ox
98.5 F 90 16 125/87 100
03/16/24 07:49 03/16/24 07:50 03/16/24 07:50 03/16/24 07:39 03/16/24 07:51
Intake and Output
03/15/24 03/16/24 03/17/24
06:59 06:59 06:59
Intake Total 200 / 200
Output Total 750 / 750 1450 / 1450 100 / 100
Balance -750 / -750 -1250 / -1250 -100 / -100
Intake:
Oral fluids 200 / 200
Output:
Drain Output (Total) 100 / 100
Middle Chest A 100 / 100
Urine, Voided 750 / 750 1350 / 1350 100 / 100
Other:
How many times incontinent 1
SMALL amount urine
Laboratory Results
03/16/24 03:50
03/16/24 03:50
Review of Systems
-
: No Symptoms
Physical Exam
-
General - well developed, well nourished, no acute distress
Chest - clear bilaterally
Abdomen - soft, non-tender, positive bowel sounds, no CVAT, no incisional pain or distention
Genitalia - normal
Rectal - normal
Skin - warm & dry with no rash
Neuro - AOx3, no motor deficits
Extremities - no clubbing, no cyanosis, no edema
Incision - clean, dry
Dressing - clean, dry, intact
Care Review
Data Reviewed
Discussed with: Nursing and Family (NEPHROLOGY)
CT Scan: Image Pers Reviewed
Ultrasound: Image Pers Reviewed
--- NOTE | 2024-03-16 11:24 | W.PN.NEPH.PH ---
Today's Communication / Plan
-
- trend Cr, no lasix
Assessment/Plan
-
Impression:
Acute kidney injury
Chronic kidney disease stage IV with baseline creatinine of 2,8
Penis and right upper extremity edema/volume overload
Hydronephrosis
Cystitis
Pericardial and pleural effusion
Coronary artery disease
Hypertension
Peripheral vascular disease
Renal cancer with history of left nephrectomy
Plan:
-s/p pericardiocentesis yesterday after pericardial effusion was found with evidence of HD compromise. patient's UOP is already improving which makes me think there may be a cardiac cause to his kidney injury. i am hopeful for recovery in kidney
function as the effusion is now drained.
-discussed at length with urology, imaging re-reviewed. it appears that the patient does NOT have evidence of hydronephrosis on imaging. we will hold off on placing catheter/nephrostomy tubes as the patient is having good UOP
-Urinalysis notes 3+ albuminuria which is consistent with prior history: Will check urine protein to creatinine ratio given edema: 3.5 grams up/ucr
-Patient hypertensive with history of difficult to control hypertension, normotensive currently
-hold off on lasix in the setting of draining effusion so we do not drop preload
-No acute dialysis requirement today
-
-
Date of Service: March 16, 2024
CC / HPI / ROS
-
Chief Complaint:
TORSTEN
History of Present Illness:
creatinine unchanged
hemodynamically stable
Review of Systems:
Nonoliguric
No chest pain or shortness of breath
Labs
-
Labs:
WBC 10.8 10^3/uL (4.8-10.8) 03/16/24 03:50
RBC 3.60 10^6/uL (4.70-6.10) L 03/16/24 03:50
Hgb 10.4 g/dL (13.0-18.0) L 03/16/24 03:50
Hct 30.2 % (39.0-52.0) L 03/16/24 03:50
Plt Count 261 10^3/uL (130-400) 03/16/24 03:50
Sodium 131 mmol/L (135-145) L 03/16/24 03:50
Potassium 3.6 mmol/L (3.5-5.1) 03/16/24 03:50
Chloride 102 mmol/L (98-107) 03/16/24 03:50
Carbon Dioxide 18 mmol/L (22-30) L 03/16/24 03:50
BUN 45 mg/dl (9-20) H 03/16/24 03:50
Creatinine 4.2 mg/dL (0.7-1.3) H* 03/16/24 03:50
eGFR 13.60 03/16/24 03:50
Glucose 110 mg/dl (70-99) H 03/16/24 03:50
Calcium 7.8 mg/dl (8.4-10.2) L 03/16/24 03:50
Bzm-U-Bdfytaajzfn Pept 1060 pg/ml 03/15/24 03:12
Albumin 3.7 g/dl (3.5-5.0) 03/14/24 04:01
Physical Exam
-
Vital Signs:
Vital Signs
Temp Pulse Resp BP Pulse Ox
98.5 F 90 16 125/87 100
03/16/24 07:49 03/16/24 07:50 03/16/24 07:50 03/16/24 07:39 03/16/24 07:51
Cardiovascular:: Regular rate and rhythm
Respiratory:: Bilateral: Coarse
Lung Excursion:: Normal
Abdomen:: Nontender and Soft
Bowel Sounds:: Normal
Extremity Edema:: None: Bilateral: (bilateral amputee)
Stevenson Catheter: No
--- NOTE | 2024-03-16 13:10 | W.PN.CD ---
Today's Communication / Plan
-
plan to pull drain this evening if continued minimal output; TTE prior to discharge; hold diuresis today given improved UOP; no medication changes
Impression / Plan
-
77-year-old patient well-known to Dr. Aguillon with history of CAD, PAD (bilateral AKA's), hypertension, mitral regurgitation, right carotid stenosis (followed by Dr. Virgen), hyperlipidemia and stage IIIb CKD (prior renal cell cancer and left
nephrectomy), presenting with volume overload, now status post-pericardiocentesis 03/16 with improving urine output.
Volume overload:
-likely secondary to CKD with possible cardiogenic component driven by effusion; noted improvement in urine output after drainage of effusion
-less likely driven by underlying CHF given normal EF, preserved cardiac index, and only mildly elevated filling pressures after effusion drainage
-improving urine output today, agree with holding diuresis
-he has bilateral pleural effusions and possible pericardial effusion noted on CT. BNP elevated.
Pericardial effusion:
-fluid studies borderline transudative/exudative per Light's criteria
-100 cc drainage overnight, now slowing
-site cdi
-will pull drain this evening if continued minimal output
-will not treat with NSAIDs given CKD
-plan for limited TTE prior to discharge to evaluate stability
CAD:
-Denies anginal symptoms.
-Continue medical therapy
-statin titration limited with renal function-on rosuvastatin and zetia
TORSTEN on CKD 4:
-Creat now in 4 range, stable today. Previously 2.8/2.9 range in September and October 2023
-urine output improving
-Nephrology following, appreciate recommendations
Mitral regurgitation, mild to moderate:
-stable on repeat echo 03/15
PAD:
-followed by Dr. Virgen
HTN:
-Blood pressure now controlled (changed from metoprolol to tartrate to tartrate to Coreg); continue current medication regimen.
Hydronephrosis:
-per urology, appreciate recommendations
Subjective:
he has no cp or sob. Swelling continues to be improved. No pain at drain site.
Physical Exam
Vital Signs/Labs
Vital Signs
Temp Pulse Resp BP Pulse Ox
36.5 C 70 17 130/74 99
03/16/24 11:26 03/16/24 11:28 03/16/24 11:26 03/16/24 11:28 03/16/24 11:26
03/15/24 03/16/24 03/17/24
06:59 06:59 06:59
Actual Weight 47.582 kg 46.3 kg
03/16/24 03:50
03/16/24 03:50
Magnesium 1.7 mg/dl (1.6-2.3) 03/15/24 03:12
03/13/24 03/15/24
00:17 03:12
Jfa-V-Xqkjyhdqgvs Pept 1160 1060
LAB Results
03/13/24
16:17
Troponin I 0.027
Physical Exam
Constitutional: No acute distress
Cardiovascular: Rhythm & rate is regular, JVD pressure is normal, Systolic murmur absent and Diastolic murmur absent
Respiratory: Respiratory effort normal and Lungs clear to auscul. (decreased at bases)
GI: Soft and Distention absent
Neuro/Psych: Alert, Oriented and AO x 3
Data Reviewed
-
Date of Service: March 16, 2024
Medical Decision Making: Reviewed Test Results
EKG: Report Reviewed by me
Echo: Report Reviewed by me
Labs: Labs Reviewed by me
--- NOTE | 2024-03-16 14:35 | PN.CDI ---
CDI
- -
CDI:
Physician Documentation Request
Admit Date: 03/13/24 05:00
Dear Doctor Ernie,
Patient admitted with volume overload.
03/13 Nursing skin assessment, 'Stage 2 coccyx pressure injury, POA.'
Physician documentation of the type and location of wounds is required for compliant documentation. Based on the above clinical findings and your assessment, please provide the following in your progress note:
Type (etiology) of ulcer/wound:
- Pressure (decubitus) ulcer
- Other
- Unable to determine
For a pressure ulcer, please also include the stage* of the ulcer:
- Stage 1 - Skin intact, non-blanchable redness
- Stage 2 - Partial thickness loss of dermis, includes intact or open blister
- Stage 3 - Full thickness tissue not including bone, tendon or muscle
- Stage 4 - Full thickness tissue loss, including exposed bone, tendon or muscle
- Unstageable - Full thickness loss in which the base of the ulcer is covered by slough (yellow, curry, faustin, green or brown) and/or eschar (curry, brown or black) in the wound bed.
- Unable to determine
Use of terms such as suspected, likely, concern for, or probable (associated with a specific diagnosis that is being evaluated, monitored, or treated as if it exists) are acceptable and can be coded in the inpatient setting, when documented at the
time of discharge.
Thank you,
Isabel REBOLLAR,RN,CCDS
CDI Specialist
Available via [employer] text
Please use your independent medical judgment in providing your response.
*Source: National Pressure Ulcer Advisory Panel (NPUAP)
--- NOTE | 2024-03-16 17:44 | W.PN.UPDATE ---
Update Note
Progress Note Update
Minimal pericardial drainage throughout day. Drain pulled without incident and gauze dressing placed.
[2024-03-16] MEDS: PROCARDIA XL (EXTENDED RELEASE) 60 MG PO (22:11)
[2024-03-16] MEDS: FLOMAX 0.4 MG PO (22:12)
[2024-03-16] MEDS: XALATAN OPHTHALMIC SOLUTION 1 DROP OPHTH (22:18)
[2024-03-17] VITALS (8 sets, daily range): BP systolic 92–138; BP diastolic 57–70
--- NOTE | 2024-03-17 02:51 | PTCARENOTE ---
Recd pt at change of shift. Pt on quality assurance monitor in NSR with occasional monomorphic PVC's. Pt denies any pain or discomfort and refused heparin. RN informed pt of the indication for heparin therapy, however pt still refused medication. Pt agree
to report any pain or discomfort to RN immediately. Pt resting in bed with call skinner in reach. Plan of care ongoing.
[2024-03-17 04:38] LABS: Hematocrit 26.9 % (39.0-52.0); Hemoglobin 9.3 g/dL (13.0-18.0); Mean Corp Hgb Conc. 34.6 g/dL (33.0-37.0); Mean Corpuscular Hgb 28.5 pg (27.0-31.0); Mean Corpuscular Volume 82.5 fL (80.0-94.0); Mean Platelet Volume 10.6 fL (7.4-10.4); Platelet Count 240 10^3/uL (130-400); Red Blood Cell Count 3.26 10^6/uL (4.70-6.10); Red Cell Dist. Width 13.2 % (11.5-14.5); White Blood Cell Count 7.2 10^3/uL (4.8-10.8)
[2024-03-17 05:26] LABS: Blood Urea Nitrogen 48 mg/dl (9-20); Calcium 7.5 mg/dl (8.4-10.2); Carbon Dioxide 18 mmol/L (22-30); Chloride 101 mmol/L (98-107); Glucose 103 mg/dl (70-99); Potassium 3.5 mmol/L (3.5-5.1); Sodium 129 mmol/L (135-145); eGFR 13.22
[2024-03-17 08:02] LABS: Albumin 3.1 g/dl (3.5-5.0)
--- NOTE | 2024-03-17 08:05 | W.PN.CD ---
Today's Communication / Plan
-
echo tomorrow
ongoing evaluation with renal per etiology of volume overload
Impression / Plan
-
77-year-old patient well-known to Dr. Aguillon with history of CAD, PAD (bilateral AKA's), hypertension, mitral regurgitation, right carotid stenosis (followed by Dr. Virgen), hyperlipidemia and stage IIIb CKD (prior renal cell cancer and left
nephrectomy), presenting with volume overload, now status post-pericardiocentesis 03/16 with improving urine output.
Volume overload:
-likely secondary to CKD with possible cardiogenic component driven by effusion; noted improvement in urine output after drainage of effusion and PCWP was 14.
-less likely driven by underlying CHF given normal EF, preserved cardiac index, and only mildly elevated filling pressures after effusion drainage
-improving urine output
-he has bilateral pleural effusions and possible pericardial effusion noted on CT. BNP elevated.
Pericardial effusion:
-successful pericardiocentesis on 03/15/24 :fluid studies borderline transudative/exudative per Light's criteria
-drain removed on 03/16/24 after little ongoing drainage
-will not treat with NSAIDs/colchicine given CKD
-unclear etiology of effusion: ?progressive CKD. It is unlikely due to CHF, his pcwp was 14 after drainage.
-plan for limited TTE tomorrow now that drain is out
CAD:
-Denies anginal symptoms.
-Continue medical therapy
-statin titration limited with renal function-on rosuvastatin and zetia
TORSTEN on CKD 4:
-Creat now in 4 range, stable today at 4.3. Previously 2.8/2.9 range in September and October 2023
-urine output improving
-Nephrology following, Discussed above reetiology of volume overload with Dr Neumann, appreciate recommendations
Mitral regurgitation, mild to moderate:
-stable on repeat echo 03/15
PAD:
-followed by Dr. Virgen
HTN:
-Blood pressure now controlled (changed from metoprolol to tartrate to tartrate to Coreg); continue current medication regimen.
Hydronephrosis:
-per urology, appreciate recommendations
Subjective:
he has no cp or sob. Swelling persistent in his right arm. He is feeling so much better though and happy to report his appetite has resturned. t
Data:
03/13/24: The RIGHT internal jugular, subclavian, axillary, basilic, brachial and cephalic veins are patent. There is no sonographic evidence for deep venous thrombosis.
TTE 03/15/24: Left ventricle is small in size with moderate concentric left ventricular
hypertrophy. Low normal left ventricular systolic function. Left ventricular
ejection fraction is 50-55% by De La Torre's method of disc.
Hypokinesis of the basal inferior wall.
Normal right ventricular size and function.
Mild aortic regurgitation.
Moderate pericardial effusion with the largest pocket anterior to the right
ventricle (1.6 cm).
There is evidence of hemodynamic compromise with intermittent right ventricular
collapse during diastole.
Pleural effusion present.
Compared to the prior on 09/06/2019, mild hypokinesis of the basal inferior wall
is new. Moderate pericardial effusion is new. Mild aortic regurgitation is
new.
Physical Exam
Vital Signs/Labs
Vital Signs
Temp Pulse Resp BP Pulse Ox
98.1 F 68 16 120/68 100
03/17/24 07:55 03/17/24 07:55 03/17/24 07:55 03/17/24 04:15 03/17/24 07:55
03/16/24 03/17/24 03/18/24
06:59 06:59 06:59
Actual Weight 46.947 kg
03/17/24 04:18
03/17/24 04:18
Magnesium 1.7 mg/dl (1.6-2.3) 03/15/24 03:12
03/13/24 03/15/24
00:17 03:12
Peb-P-Wakekjrcryi Pept 1160 1060
Physical Exam
Constitutional: No acute distress
Cardiovascular: Rhythm & rate is regular, JVD pressure is normal, Systolic murmur absent, Diastolic murmur absent and S1S2 is normal
Respiratory: Respiratory effort normal, Lungs clear to auscul., Wheeze Absent and Crackles Absent
Neuro/Psych: AO x 3
Other: Other (b/l aka, rue with nonpitting edema)
Data Reviewed
-
Date of Service: March 17, 2024
EKG: Other (sinus)
[2024-03-17] MEDS: ALPHAGAN 0.2% EYE DROPS 1 DROP OPHTH ×2 (08:29→20:24)
[2024-03-17] MEDS: ASPIR LOW (ENTERIC COATED) 81 MG PO (08:30)
[2024-03-17] MEDS: COREG 6.25 MG PO ×2 (08:30→20:25)
[2024-03-17] MEDS: CRESTOR 10 MG PO (08:30)
[2024-03-17] MEDS: HEPARIN SC ×3 (08:31→20:27)
[2024-03-17] MEDS: PROCARDIA XL (EXTENDED RELEASE) 30 MG PO (08:31)
[2024-03-17] MEDS: TRUSOPT 2% OPHTHALMIC SOLUTION 1 DROP OPHTH ×2 (08:33→20:33)
--- NOTE | 2024-03-17 08:53 | PN.CDI ---
CDI
- -
CDI:
Physician Documentation Request
Admit Date: 03/13/24 05:00
Dear Doctor Ernie,
Patient admitted with volume overload.
Na levels documented below:
Laboratory Tests
03/15/24 03/16/24 03/17/24
03:12 03:50 04:18
Sodium 134 L 131 L 129 L
Based on the above, could you clarify in the progress notes, the appropriate diagnosis, if significant, that supports the above abnormalities and additional evaluation, monitoring and/or treatment rendered:
Hyponatremia
Insignificant abnormal lab findings
Other
Unable to determine
Use of terms such as suspected, likely, concern for, or probable (associated with a specific diagnosis that is being evaluated, monitored, or treated as if it exists) are acceptable and can be coded in the inpatient setting, when documented at the
time of discharge.
Thank you,
Isabel REBOLLAR,RN,CCDS
CDI Specialist
Available via [place] text
Please use your independent medical judgment in providing your response.
--- NOTE | 2024-03-17 09:09 | W.PN.HOSP.TC ---
Today's Communication/Plan
-
Lasix scan planned per nephro. lasix continued to hold.
Assessment / Plan
Assessment / Plan
pt is an 78 year old male
Right Upper Extremity Edema--Likely due to volume overload, less likely DVT and US negative--Elevate right arm above level of heart--stop diuresis per nephro
Volume Overload-- Pt presents with penile swelling and RUE edema--BNP 1060-- deferring diuresis to renal--watch creat. Today 4.3 - Volume overload cardio vs renal -- Pericardial drain removed -- repeat echo tomorrow to asses for any new fluid per
cardio -- Nephro plans to obtain lasix renal scan
TORSTEN on CKD IV--unclear if cardiorenal vs renal disease progression--October 2023 creat was 2.8-- CT a/p mild right hydro nephrosis and possible cystitis (alicea cath unable to be placed due to coiling per nurse)-- Avoid nephrotoxics agents---pt with 1
kidney -- Kidney US ruled out post-obstructive renal etiologies, no hydronephrosis -- urology recommends no folly as long as pt is voiding well -- lasix renal scan planned per nephro
Hyponatremia --today 129 -- nephro appreciated -- Monitor BMP
Hydronephrosis/Hx BPH- CT imaging as above- Likely contributing to above--urology ruled out post-renal causes-- urology signed off-- Continue home Flomax
Questionable Cystitis - Afebrile. No leukocytosis--hold on abx
Pericardial Effusion- Mod Pericardial effusion on CT imaging --Echo done -pericardial drain placed to drain fluid- Pericardial drain removed -- repeat echo planned to asses for any new fluid
Pleural Effusion- Mod right effusion, small left effusion on CT a/p, not obvious on CXR- No RR complaints or oxygen requirements- Consider repeat imaging-- No indication for thora at this time.
CAD, HTN/HLD- Reports hx [place]/stent- Continue home aspirin/statin/BB/Nifedipine- Meds need reconciliation: Pt does not know BB dose, Hector Mosher will bring in
Sacral wound
-Stage 1 coccyx pressure injury
-Wound care assessed
-No immediate therapy required
-Monitor
Renal Ca - hx L Nephrectomy noted.
Glaucoma - Continue home eye drops
DVT ppx: Heparin
Code Status: Full
Anticipated Discharge: > 48 hours
Subjective/Interval History
-
Date of Service: March 17, 2024
Objective Data
-
Labs:
Laboratory Results
03/17/24
04:18
WBC 7.2
Hgb 9.3 L
Hct 26.9 L
Plt Count 240
Sodium 129 L
Potassium 3.5
Chloride 101
Carbon Dioxide 18 L
BUN 48 H
Creatinine 4.3 H*
Glucose 103 H
Calcium 7.5 L
Vital Signs:
Vital Signs
Temp Pulse Resp BP Pulse Ox
98.1 F 65 16 115/68 100
03/17/24 07:55 03/17/24 08:30 03/17/24 07:55 03/17/24 08:30 03/17/24 07:55
I&O
03/16/24 03/17/24 03/18/24
06:59 06:59 06:59
Intake Total 200 / 200 240 / 240
Output Total 1450 / 1450 525 / 525
Balance -1250 / -1250 -285 / -285
Review of Systems
-
History Source: Patient
Constitutional: Denies No Appetite (increased appetite)
EENT: Reports No Symptoms Reported
Respiratory: Reports No Symptoms
Cardiac: Reports No Symptoms
Abdomen/GI: Reports No Symptoms
Neuro: Reports No Symptoms
Physical Exam
-
General: No Apparent Distress and Comfortable
Respiratory: Clear to Auscultation
Cardiac: Regular Rhythm and S1/S2
GI: Soft, Nontender and Nondistended
Musculoskeletal: Edema, Right Upper Extrem
Skin: Warm and Dry
Neuro: AO x 3
Psych: Calm
--- NOTE | 2024-03-17 09:32 | W.PN.URO.CBU ---
Today's Communication / Plan
-
NO INTERVENTIONFROMGU
Assessment / Plan
-
TORSTEN with 800 cc urine did u/s NO HYDRO REVIEWED CA SCAN IN SECOND THOUGHT NO HYDRO ON INITIAL ct SCAN. SEE NO ADVANTGE TO INSTRUMENT FOR MONTERO PLACEMENT MINDING THAT PT HAS NO VOIDING COMPLAINTS. DEFINITE RISK TO INSTRMENT
PAIN INFECTION ACUTE RETTNION SEPSIS INCONTINENCE AMONG RISKS WITHPUT DEFINIT ADVANTAGE DISCUSSED WITH HOP[SPITALIST AND NEPH ROLOGY AND FOR NOW NO GIU INTERVEMTIN PT VOICED UNDRSTANDING AND AGREEMNT
Diagnosis
-
Date of Service: March 17, 2024
-
Patient Diagnosis:
Post Op Day:
Patient Diagnosis:
Post Op Day:
Patient Diagnosis:
Post Op Day:
Patient Diagnosis:
Post Op Day:
Patient Diagnosis:
Post Op Day:
Patient Diagnosis CKD 3 BUT CREATINE 2.8 TO 4.1 solitary rt kidney with mild hydto ct scan
bladder empties but possib;e cystis post xrt for acp. Pt with no voiding probelms empties with good stream may have high pressure voiding causing backpressure on kidney also causing hydro as opposed to obstruction
Post Op Day:
Subjective
-
no gu complaints
Objective
-
Vital Signs
Temp Pulse Resp BP Pulse Ox
98.1 F 65 16 115/68 100
03/17/24 07:55 03/17/24 08:30 03/17/24 07:55 03/17/24 08:30 03/17/24 07:55
Intake and Output
03/16/24 03/17/24 03/18/24
06:59 06:59 06:59
Intake Total 200 / 200 240 / 240
Output Total 1450 / 1450 525 / 525
Balance -1250 / -1250 -285 / -285
Intake:
Oral fluids 200 / 200 240 / 240
Output:
Drain Output (Total) 100 / 100
Middle Chest A 100 / 100
Urine, Voided 1350 / 1350 525 / 525
Laboratory Results
03/17/24 04:18
03/17/24 04:18
Review of Systems
-
: No Symptoms
Physical Exam
-
General - well developed, well nourished, no acute distress
Chest - clear bilaterally
Abdomen - soft, non-tender, positive bowel sounds, no CVAT, no incisional pain or distention
Genitalia - normal
Rectal - normal
Skin - warm & dry with no rash
Neuro - AOx3, no motor deficits
Extremities - no clubbing, no cyanosis, no edema
Incision - clean, dry
Dressing - clean, dry, intact
Care Review
Data Reviewed
Discussed with: Hospitalist, Nursing and Other (NPTHROLOGY)
CT Scan: Image Pers Reviewed
Ultrasound: Image Pers Reviewed
--- NOTE | 2024-03-17 09:56 | W.PN.UPDATE ---
Update Note
Progress Note Update
I saw and evaluated the patient. I reviewed the resident�s note and agree with findings and plan as documented in the resident�s note.
Patient without any chest pain or shortness of breath.
Slow improvement in the right arm swelling.
Tolerating diet. Denies any diarrhea. Urinating okay without much difficulty and voiding.
Afebrile and hemodynamically stable. Not hypoxic.
Chest CTA.
Right arm swelling noted with edema mostly around the elbow but improving. Advised to keep head elevated on a pillow.
Discussed with cardiology-plan to redo an echo today to see if any reaccumulation of pericardial fluid as the pericardial drainage catheter is out.
Discussed with urology who noted there is no hydronephrosis or urinary distention on the ultrasound and holding on any urinary diversion recommendations.
Creatinine still remains elevated without changes despite pericardial fusion tap. Etiology of TORSTEN on CKD still not clear. Nephro following. No hyperK but has Metabolic acidosis. Consider adding HCO3.
--- NOTE | 2024-03-17 10:27 | W.PN.NEPH.PH ---
Today's Communication / Plan
-
Will obtain Lasix renal scan to assess for possible obstructive component if no improvement of creatinine by tomorrow however patient tells me he has anaphylactic reactions to all dyes
Assessment/Plan
-
Impression:
Acute kidney injury
Chronic kidney disease stage IV with baseline creatinine of 2,8
Penis and right upper extremity edema/volume overload
Hydronephrosis
Cystitis
Pericardial and pleural effusion
Coronary artery disease
Hypertension
Peripheral vascular disease
Renal cancer with history of left nephrectomy
Plan:
-s/p pericardiocentesis yesterday after pericardial effusion was found with evidence of HD compromise.
-Creatinine however has shown no sign of improvement
-I am considering a Lasix renal scan to assess for functional obstruction and solitary right
-Previously discussed at length with urology, imaging re-reviewed. it appears that the patient does NOT have evidence of hydronephrosis on imaging. we will hold off on placing catheter/nephrostomy tubes as long as the patient is having good UOP
-Urinalysis notes 3+ albuminuria which is consistent with prior history: Will check urine protein to creatinine ratio given edema: 3.5 grams up/ucr
-hold off on lasix in the setting of draining effusion so we do not drop preload
-No acute dialysis requirement today
-
-
Date of Service: March 17, 2024
CC / HPI / ROS
-
Chief Complaint:
TORSTEN
History of Present Illness:
creatinine unchanged
hemodynamically stable
Review of Systems:
Nonoliguric, but less urine
No chest pain or shortness of breath
Resolving penis edema
Labs
-
Labs:
WBC 7.2 10^3/uL (4.8-10.8) 03/17/24 04:18
RBC 3.26 10^6/uL (4.70-6.10) L 03/17/24 04:18
Hgb 9.3 g/dL (13.0-18.0) L 03/17/24 04:18
Hct 26.9 % (39.0-52.0) L 03/17/24 04:18
Plt Count 240 10^3/uL (130-400) 03/17/24 04:18
Sodium 129 mmol/L (135-145) L 03/17/24 04:18
Potassium 3.5 mmol/L (3.5-5.1) 03/17/24 04:18
Chloride 101 mmol/L (98-107) 03/17/24 04:18
Carbon Dioxide 18 mmol/L (22-30) L 03/17/24 04:18
BUN 48 mg/dl (9-20) H 03/17/24 04:18
Creatinine 4.3 mg/dL (0.7-1.3) H* 03/17/24 04:18
eGFR 13.22 03/17/24 04:18
Glucose 103 mg/dl (70-99) H 03/17/24 04:18
Calcium 7.5 mg/dl (8.4-10.2) L 03/17/24 04:18
Hbv-F-Zaqvlpdixbm Pept 1060 pg/ml 03/15/24 03:12
Albumin 3.1 g/dl (3.5-5.0) L 03/17/24 04:18
Physical Exam
-
Vital Signs:
Vital Signs
Temp Pulse Resp BP Pulse Ox
98.1 F 65 16 115/68 100
03/17/24 07:55 03/17/24 08:30 03/17/24 07:55 03/17/24 08:30 03/17/24 07:55
Cardiovascular:: Regular rate and rhythm
Respiratory:: Bilateral: Coarse
Lung Excursion:: Normal
Abdomen:: Nontender and Soft
Bowel Sounds:: Normal
Extremity Edema:: None: Bilateral: (bilateral amputee)
Stevenson Catheter: No
--- NOTE | 2024-03-17 12:11 | CM ---
Reviewed chart. Met with Mr. Boogie to review discharge plans. He states he feels about the same. Prior to admission he resides alone in a two story home with ramps to enter. He has to go up a full flight of steps to get to full bathroom. He
has a stair glide to get to the second floor. He has family members that rotate to stay with him. His daughter assist with adls. He uses an electric wheelchair for mobility. He has an electric wheelchair, manual wheelchair, scooter and stair
glide. He can transfer to wheelchair to bed independently. He has a prescription plan and uses [facility]. Will need to see his current functional status to see if he will have any skulled care needs. Medical work-up in progress. The
discharge plan is to return home when medically stable.
[2024-03-17] MEDS: PROCARDIA XL (EXTENDED RELEASE) 60 MG PO (22:32)
[2024-03-17] MEDS: FLOMAX 0.4 MG PO (22:32)
[2024-03-17] MEDS: XALATAN OPHTHALMIC SOLUTION 1 DROP OPHTH (22:32)
[2024-03-18] VITALS (8 sets, daily range): BP systolic 95–143; BP diastolic 62–78
[2024-03-18 05:15] LABS: Hematocrit 24.9 % (39.0-52.0); Hemoglobin 8.7 g/dL (13.0-18.0); Mean Corp Hgb Conc. 34.9 g/dL (33.0-37.0); Mean Corpuscular Hgb 28.8 pg (27.0-31.0); Mean Corpuscular Volume 82.5 fL (80.0-94.0); Mean Platelet Volume 10.1 fL (7.4-10.4); Platelet Count 228 10^3/uL (130-400); Red Blood Cell Count 3.02 10^6/uL (4.70-6.10); Red Cell Dist. Width 13.5 % (11.5-14.5); White Blood Cell Count 4.9 10^3/uL (4.8-10.8)
[2024-03-18 05:31] LABS: ALT (SGPT) 42 U/L (0-50); AST (SGOT) 52 U/L (17-59); Albumin 2.9 g/dl (3.5-5.0); Alkaline Phosphatase 41 U/L (38-126); Blood Urea Nitrogen 51 mg/dl (9-20); Calcium 7.3 mg/dl (8.4-10.2); Carbon Dioxide 18 mmol/L (22-30); Chloride 100 mmol/L (98-107); Glucose 96 mg/dl (70-99); Potassium 3.6 mmol/L (3.5-5.1); Sodium 127 mmol/L (135-145); Total Bilirubin 0.4 mg/dl (0.2-1.3); Total Protein 5.5 g/dl (6.3-8.2); eGFR 12.19
--- NOTE | 2024-03-18 08:00 | W.PN.CD ---
Today's Communication / Plan
-
follow up repeat TTE to evalute for re-accumulation of pericardial effusion; hold diuresis pending renal plans/recommendations
Impression / Plan
-
77-year-old patient well-known to Dr. Aguillon with history of CAD, PAD (bilateral AKA's), hypertension, mitral regurgitation, right carotid stenosis (followed by Dr. Virgen), hyperlipidemia and stage IIIb CKD (prior renal cell cancer and left
nephrectomy), presenting with volume overload, now status post-pericardiocentesis 03/16. Cr unchanged 48 hours after effusion drainage.
Volume overload:
-likely secondary to CKD with possible cardiogenic component driven by effusion, though no improvement in Cr now 48 hours after drainage; low PCWP (14) and normal CI after drainage argues against chronic CHF driving picture
-Cr increased today 4.3->4.6
-hold diuresis today pending renal consult plans for possible lasix renal scan
Pericardial effusion:
-successful pericardiocentesis on 03/15/24 :fluid studies borderline transudative/exudative per Light's criteria, cyto/micro pending
-drain removed on 03/16/24 after little ongoing drainage, follow up limited TTE today to evaluate for re-accumulation
-will not treat with NSAIDs/colchicine given CKD
-unclear etiology of effusion: ?progressive CKD. It is unlikely due to CHF, his pcwp was 14 after drainage
CAD:
-Denies anginal symptoms.
-Continue medical therapy
-statin titration limited with renal function-on rosuvastatin and zetia
TORSTEN on CKD 4.6:
-Creat now in 4 range, increased today at 4.6. Previously 2.8/2.9 range in September and October 2023
-adaquate urine output
-Nephrology following, Discussed above re: etiology of volume overload with Dr Neumann, appreciate recommendations
Mitral regurgitation, mild to moderate:
-stable on repeat echo 03/15
PAD:
-followed by Dr. Virgen
HTN:
-Blood pressure now controlled (changed from metoprolol to tartrate to tartrate to Coreg); continue current medication regimen.
Hydronephrosis:
-per urology, appreciate recommendations
Subjective:
he has no cp or sob. Continues to feel improved with improved appetite.
Data:
03/17/24 renal ultrasound:
1. No right hydronephrosis is identified sonographically. There is increased renal cortical echogenicity, nonspecific but may be seen in association with medical renal disease. There are multiple benign simple right renal cyst.
2. Urinary bladder decompressed at the time of the examination as above, otherwise unremarkable.
3. Small volume of ascites within the pelvis.
03/13/24: The RIGHT internal jugular, subclavian, axillary, basilic, brachial and cephalic veins are patent. There is no sonographic evidence for deep venous thrombosis.
TTE 03/15/24: Left ventricle is small in size with moderate concentric left ventricular
hypertrophy. Low normal left ventricular systolic function. Left ventricular
ejection fraction is 50-55% by De La Torre's method of disc.
Hypokinesis of the basal inferior wall.
Normal right ventricular size and function.
Mild aortic regurgitation.
Moderate pericardial effusion with the largest pocket anterior to the right
ventricle (1.6 cm).
There is evidence of hemodynamic compromise with intermittent right ventricular
collapse during diastole.
Pleural effusion present.
Compared to the prior on 09/06/2019, mild hypokinesis of the basal inferior wall
is new. Moderate pericardial effusion is new. Mild aortic regurgitation is
new.
Physical Exam
Vital Signs/Labs
Vital Signs
Temp Pulse Resp BP Pulse Ox
36.6 C 63 18 109/64 98
03/18/24 04:35 03/17/24 22:32 03/18/24 04:35 03/17/24 22:32 03/18/24 04:35
03/17/24 03/18/24 03/19/24
06:59 06:59 06:59
Actual Weight 46.947 kg 48.3 kg
03/18/24 04:41
03/18/24 04:41
Magnesium 1.7 mg/dl (1.6-2.3) 03/15/24 03:12
03/13/24 03/15/24
00:17 03:12
Pit-C-Xxnnfbecawx Pept 1160 1060
Physical Exam
Constitutional: No acute distress
Cardiovascular: Rhythm & rate is regular, JVD pressure is normal, Systolic murmur absent and Diastolic murmur absent
Respiratory: Respiratory effort normal and Lungs clear to auscul. ( at bases)
GI: Soft and Distention absent
Neuro/Psych: Alert, Oriented and AO x 3
Data Reviewed
-
Date of Service: March 18, 2024
Medical Decision Making: External Notes and Reviewed Test Results
X-Ray/CT/US/MRI/NUC/PET: Report Reviewed by me
Labs: Labs Reviewed by me
--- NOTE | 2024-03-18 08:15 | W.PN.HOSP.TC ---
Today's Communication/Plan
-
Repeat echo and lasix renal scan. Monitor BMP
Assessment / Plan
Assessment / Plan
pt is an 78 year old male
Right Upper Extremity Edema--Likely due to volume overload, less likely DVT and US negative--Elevate right arm above level of heart--stop diuresis per nephro
Volume Overload-- Pt presents with penile swelling and RUE edema--BNP 1060-- deferring diuresis to renal--watch creat. Today 4.6 - Volume overload cardio vs renal -- Pericardial drain removed -- repeat echo today to asses for any new fluid per
cardio -- Nephro plans to obtain lasix renal scan today -- nephro appreciated
TORSTEN on CKD IV--unclear if cardiorenal vs renal disease progression--October 2023 creat was 2.8-- CT a/p mild right hydro nephrosis and possible cystitis (alicea cath unable to be placed due to coiling per nurse)-- Avoid nephrotoxics agents---pt with 1
kidney -- Kidney US ruled out post-obstructive renal etiologies, no hydronephrosis -- urology recommends no folly as long as pt is voiding well -- lasix renal scan planned per nephro
Hyponatremia --today 127 -- nephro appreciated -- Monitor BMP
Hydronephrosis/Hx BPH- CT imaging as above- Likely contributing to above--urology ruled out post-renal causes-- urology signed off-- Continue home Flomax
Questionable Cystitis - Afebrile. No leukocytosis--hold on abx
Pericardial Effusion- Mod Pericardial effusion on CT imaging --Echo done -pericardial drain placed to drain fluid- Pericardial drain removed -- repeat echo planned to asses for any new fluid
Pleural Effusion- Mod right effusion, small left effusion on CT a/p, not obvious on CXR- No RR complaints or oxygen requirements- Consider repeat imaging-- No indication for thora at this time.
CAD, HTN/HLD- Reports hx [place]/stent- Continue home aspirin/statin/BB/Nifedipine- Meds need reconciliation: Pt does not know BB dose, Hector Mosher will bring in
Sacral wound
-Stage 1 coccyx pressure injury
-Wound care assessed
-No immediate therapy required
-Monitor
Renal Ca - hx L Nephrectomy noted.
Glaucoma - Continue home eye drops
DVT ppx: Heparin
Code Status: Full
Anticipated Discharge: > 48 hours
Subjective/Interval History
-
Date of Service: March 18, 2024
Objective Data
-
Labs:
Laboratory Results
03/18/24
04:41
WBC 4.9
Hgb 8.7 L
Hct 24.9 L
Plt Count 228
Sodium 127 L
Potassium 3.6
Chloride 100
Carbon Dioxide 18 L
BUN 51 H
Creatinine 4.6 H*
Glucose 96
Calcium 7.3 L
Total Bilirubin 0.4
AST 52
ALT 42
Alkaline Phosphatase 41
Vital Signs:
Vital Signs
Temp Pulse Resp BP Pulse Ox
97.8 F 63 20 109/64 100
03/18/24 08:11 03/17/24 22:32 03/18/24 08:11 03/17/24 22:32 03/18/24 08:11
I&O
03/17/24 03/18/24 03/19/24
06:59 06:59 06:59
Intake Total 240 / 240 480 / 480
Output Total 525 / 525 250 / 250
Balance -285 / -285 230 / 230
Review of Systems
-
History Source: Patient
EENT: Reports No Symptoms Reported
Respiratory: Reports No Symptoms
Cardiac: Reports No Symptoms
Abdomen/GI: Reports No Symptoms
Genitourinary: Reports No Symptoms
Neuro: Reports No Symptoms
Physical Exam
-
General: No Apparent Distress
Respiratory: Clear to Auscultation
Cardiac: Regular Rhythm and S1/S2
GI: Soft and Nontender
Musculoskeletal: Edema, Right Upper Extrem
Skin: Warm and Dry
Neuro: AO x 3
Psych: Calm
[2024-03-18] MEDS: ALPHAGAN 0.2% EYE DROPS 1 DROP OPHTH ×2 (08:25→20:32)
[2024-03-18] MEDS: ASPIR LOW (ENTERIC COATED) 81 MG PO (08:27)
[2024-03-18] MEDS: COREG 6.25 MG PO ×2 (08:27→20:33)
[2024-03-18] MEDS: PROCARDIA XL (EXTENDED RELEASE) 30 MG PO (08:27)
[2024-03-18] MEDS: CRESTOR 10 MG PO (08:27)
[2024-03-18] MEDS: TRUSOPT 2% OPHTHALMIC SOLUTION 1 DROP OPHTH ×2 (08:28→20:33)
[2024-03-18] MEDS: HEPARIN SC ×2 (08:31→20:39)
--- NOTE | 2024-03-18 09:39 | W.PN.URO.CBU ---
Today's Communication / Plan
-
no gu intervention no alicea
Assessment / Plan
-
TORSTEN with 800 cc urine did u/s NO HYDRO REVIEWED CA SCAN IN SECOND THOUGHT NO HYDRO ON INITIAL ct SCAN. SEE NO ADVANTGE TO INSTRUMENT FOR ALICEA PLACEMENT MINDING THAT PT HAS NO VOIDING COMPLAINTS. DEFINITE RISK TO INSTRMENT
PAIN INFECTION ACUTE RETTNION SEPSIS INCONTINENCE AMONG RISKS WITHPUT DEFINIT ADVANTAGE DISCUSSED WITH HOP[SPITALIST AND NEPH ROLOGY AND FOR NOW NO GIU INTERVEMTIN PT VOICED UNDRSTANDING AND AGREEMNT
Diagnosis
-
Date of Service: March 18, 2024
-
Patient Diagnosis:
Post Op Day:
Patient Diagnosis:
Post Op Day:
Patient Diagnosis:
Post Op Day:
Patient Diagnosis:
Post Op Day:
Patient Diagnosis:
Post Op Day:
Patient Diagnosis:
Post Op Day:
Patient Diagnosis CKD 3 BUT CREATINE 2.8 TO 4.1 solitary rt kidney with mild hydto ct scan
bladder empties but possib;e cystis post xrt for acp. Pt with no voiding probelms empties with good stream may have high pressure voiding causing backpressure on kidney also causing hydro as opposed to obstruction
Post Op Day:
Subjective
-
feels baseline
Objective
-
Vital Signs
Temp Pulse Resp BP Pulse Ox
97.8 F 63 20 109/64 100
03/18/24 08:11 03/17/24 22:32 03/18/24 08:11 03/17/24 22:32 03/18/24 08:11
Intake and Output
03/17/24 03/18/24 03/19/24
06:59 06:59 06:59
Intake Total 240 / 240 480 / 480
Output Total 525 / 525 250 / 250
Balance -285 / -285 230 / 230
Intake:
Oral fluids 240 / 240 480 / 480
Output:
Urine, Voided 525 / 525 250 / 250
Laboratory Results
03/18/24 04:41
03/18/24 04:41
Review of Systems
-
: No Symptoms
Physical Exam
-
General - well developed, well nourished, no acute distress
Chest - clear bilaterally
Abdomen - soft, non-tender, positive bowel sounds, no CVAT, no incisional pain or distention
Genitalia - normal
Rectal - normal
Skin - warm & dry with no rash
Neuro - AOx3, no motor deficits
Extremities - no clubbing, no cyanosis, no edema
Incision - clean, dry
Dressing - clean, dry, intact
--- NOTE | 2024-03-18 09:58 | W.PN.UPDATE ---
Update Note
Progress Note Update
Seen and examined by me independently in collaboration with the medical student Maria.
Lab data and imaging data reviewed.
Patient voices no specific complaints but did notice decreased urine output.
Denies shortness of breath or chest pain. No nausea vomiting. Tolerating diet.
Chest clear.
Elevated creatinine noted. Decreasing urine output noted.
Acute kidney injury on chronic kidney disease. Etiology remains elusive. Recent protein creatinine ratio of 6 this year and now 3.5 raises concern about probably renal disease. Renal ultrasound does not show hydronephrosis but will need to rule
out functional/obstruction issues. Discussed with nephrology-will get a renal scan with Lasix today.
Repeat echocardiogram to evaluate for any reaccumulation of pericardial fluid. Pericardial fluid analysis so far is nondiagnostic.
Total time spent on today's encounter was 52 minutes which included time spent in counseling the patient/family regarding diagnosis and treatment plan as listed above, goals of care, and symptom management. Case was discussed with nursing staff,
specialists. All labs and imaging personally reviewed by me. Remainder the time spent in detailed review of previous records, lab data, imaging, and other medical provider documentation.
--- NOTE | 2024-03-18 10:03 | W.PN.NEPH.PH ---
Today's Communication / Plan
-
Add IV Lasix twice daily
Bladder scan
Lasix renal scan to assess for functional obstruction
Assessment/Plan
-
Impression:
Acute kidney injury
Chronic kidney disease stage IV with baseline creatinine of 2,8
Penis and right upper extremity edema/volume overload
Hydronephrosis
Cystitis
Pericardial and pleural effusion
Coronary artery disease
Hypertension
Peripheral vascular disease
Renal cancer with history of left nephrectomy
Plan:
-s/p pericardiocentesis yesterday after pericardial effusion was found with evidence of HD compromise.
-Creatinine however has shown no sign of improvement in creatinine up to 4.6 (worsening)
-Hyponatremia exacerbating with sodium to 127
-Metabolic acidosis persists
-I want Lasix renal scan to assess for functional obstruction and solitary right kidney
-Previously discussed at length with urology, imaging re-reviewed. it appears that the patient does NOT have evidence of hydronephrosis on imaging. we will hold off on placing catheter/nephrostomy tubes as long as the patient is having good UOP
-Urinalysis notes 3+ albuminuria which is consistent with prior history: Will check urine protein to creatinine ratio given edema: 3.5 grams up/ucr
-Will provide 40 mg of IV BID Lasix today
-Titrate back nifedipine for lower blood pressure
-No acute dialysis requirement today
-Patient with high clinical risk of acute renal failure which is worsening in setting of volume overload requiring IV diuretics and for Lasix renal scan to assess for obstruction
-
-
Date of Service: March 18, 2024
CC / HPI / ROS
-
Chief Complaint:
TORSTEN
History of Present Illness:
creatinine worsening
hemodynamically stable
Review of Systems:
Nonoliguric, but less urine
Weights
No chest pain or shortness of breath
Resolving penis edema
Labs
-
Labs:
WBC 4.9 10^3/uL (4.8-10.8) 03/18/24 04:41
RBC 3.02 10^6/uL (4.70-6.10) L 03/18/24 04:41
Hgb 8.7 g/dL (13.0-18.0) L 03/18/24 04:41
Hct 24.9 % (39.0-52.0) L 03/18/24 04:41
Plt Count 228 10^3/uL (130-400) 03/18/24 04:41
Sodium 127 mmol/L (135-145) L 03/18/24 04:41
Potassium 3.6 mmol/L (3.5-5.1) 03/18/24 04:41
Chloride 100 mmol/L (98-107) 03/18/24 04:41
Carbon Dioxide 18 mmol/L (22-30) L 03/18/24 04:41
BUN 51 mg/dl (9-20) H 03/18/24 04:41
Creatinine 4.6 mg/dL (0.7-1.3) H* 03/18/24 04:41
eGFR 12.19 03/18/24 04:41
Glucose 96 mg/dl (70-99) 03/18/24 04:41
Calcium 7.3 mg/dl (8.4-10.2) L 03/18/24 04:41
Emq-Z-Isjnpvfngwa Pept 1060 pg/ml 03/15/24 03:12
Albumin 2.9 g/dl (3.5-5.0) L 03/18/24 04:41
Physical Exam
-
Vital Signs:
Vital Signs
Temp Pulse Resp BP Pulse Ox
97.8 F 63 20 109/64 100
03/18/24 08:11 03/17/24 22:32 03/18/24 08:11 03/17/24 22:32 03/18/24 08:11
Cardiovascular:: Regular rate and rhythm
Respiratory:: Bilateral: CTA
Lung Excursion:: Normal
Abdomen:: Nontender
Bowel Sounds:: Normal
Extremity Edema:: +1: Bilateral: (central)
Stevenson Catheter: No
--- NOTE | 2024-03-18 10:43 | PTCARENOTE ---
pt voided 100 ml yin urine, bladder scanned for 72 ml.
[2024-03-18] MEDS: LASIX 40 MG IV ×2 (11:07→16:31)
[2024-03-18] MEDS: PROCARDIA XL (EXTENDED RELEASE) 60 MG PO (22:21)
[2024-03-18] MEDS: XALATAN OPHTHALMIC SOLUTION 1 DROP OPHTH (22:25)
[2024-03-18] MEDS: FLOMAX 0.4 MG PO (22:25)
[2024-03-19] VITALS (7 sets, daily range): BP systolic 109–197; BP diastolic 55–85
--- NOTE | 2024-03-19 04:14 | PTCARENOTE ---
Rec'd pt at change of shift on TELE monitor in NSR and VSS. Pt refused heparin injection due to fear of bleeding. RN educated pt on importance and purpose of medication while in the hospital, pt was receptive and was not agreeable to medication.
Pt has not had a bowel movement since admission and RN offered PRN Senokot and Dulcolax per order however pt declined. RN educated pt on importance of maintaining bowel pattern while in hospital. Pt also educated on fluid status and importance of
emptying bladder frequently. Pt with call skinner in reach. Plan of care ongoing.
[2024-03-19 04:58] LABS: Hematocrit 27.7 % (39.0-52.0); Hemoglobin 9.7 g/dL (13.0-18.0); Mean Corpuscular Hgb 28.9 pg (27.0-31.0); Mean Corpuscular Volume 82.4 fL (80.0-94.0); Mean Platelet Volume 9.6 fL (7.4-10.4); Platelet Count 265 10^3/uL (130-400); Red Blood Cell Count 3.36 10^6/uL (4.70-6.10); Red Cell Dist. Width 13.5 % (11.5-14.5); White Blood Cell Count 5.8 10^3/uL (4.8-10.8)
[2024-03-19 05:36] LABS: Blood Urea Nitrogen 54 mg/dl (9-20); Calcium 7.6 mg/dl (8.4-10.2); Carbon Dioxide 20 mmol/L (22-30); Chloride 100 mmol/L (98-107); Estimated Creatinine Clearance 3 ml/min; Glucose 115 mg/dl (70-99); Potassium 3.5 mmol/L (3.5-5.1); Sodium 129 mmol/L (135-145); eGFR 11.88
--- NOTE | 2024-03-19 08:23 | W.PN.CD ---
Today's Communication / Plan
-
echo today
ongoing renal evaluation
Impression / Plan
-
77-year-old patient well-known to Dr. Aguillon with history of CAD, PAD (bilateral AKA's), hypertension, mitral regurgitation, right carotid stenosis (followed by Dr. Virgen), hyperlipidemia and stage IIIb CKD (prior renal cell cancer and left
nephrectomy), presenting with volume overload, now status post-pericardiocentesis 03/16. Cr unchanged 48 hours after effusion drainage.
Volume overload:
-likely secondary to CKD with possible cardiogenic component driven by effusion, though no improvement in Cr now 48 hours after drainage; low PCWP (14) and normal CI after drainage argues against chronic CHF driving picture
-Cr continues to rise with poor UOP despite IV lasix per neprhology
Pericardial effusion:
-successful pericardiocentesis on 03/15/24 :fluid studies borderline transudative/exudative per Light's criteria, cyto/micro pending
-drain removed on 03/16/24 after little ongoing drainage, follow up echo 03/18/24 shows re-accumulation without HD compromise
-Repeat echo today, may need repeat drain
-will not treat with NSAIDs/colchicine given CKD, no chest pain currently, given possible etiology no role for steroids at this point.
-unclear etiology of effusion: ?progressive CKD. It is unlikely due to CHF, his pcwp was 14 after drainage, micro is negative
TORSTEN on CKD:
-Creat now in 4 range, increased today at 4.7. Previously 2.8/2.9 range in September and October 2023
-urine output down
-Nephrology following, Discussed above re: etiology of volume overload with Dr Neumann, appreciate recommendations
CAD:
-Denies anginal symptoms.
-Continue medical therapy
-statin titration limited with renal function-on rosuvastatin and zetia
Mitral regurgitation, mild to moderate:
-stable on repeat echo 03/15
PAD:
-followed by Dr. Virgen
HTN:
-Blood pressure now controlled (changed from metoprolol to tartrate to tartrate to Coreg); continue current medication regimen.
Hydronephrosis:
-per urology, appreciate recommendations
Subjective:
he has no cp or sob. He is frustrated but no complaint outside of scrotal edema, arm improved
Data:
TTE 03/19/24: CONCLUSIONS
Normal left ventricular systolic function.
Normal right ventricular size and function.
Limited valvular interrogation.
Moderate anteriorly pericardial effusion, measuring 2.3 cm, without evidence of hemodynamic compromise.
Pleural effusion present.
Compared to March 15, 2024, moderate sized anterior pericardial effusion is
present previously drained.
TTE 03/15/24: Left ventricle is small in size with moderate concentric left ventricular
hypertrophy. Low normal left ventricular systolic function. Left ventricular
ejection fraction is 50-55% by De La Torre's method of disc.
Hypokinesis of the basal inferior wall.
Normal right ventricular size and function.
Mild aortic regurgitation.
Moderate pericardial effusion with the largest pocket anterior to the right
ventricle (1.6 cm).
There is evidence of hemodynamic compromise with intermittent right ventricular
collapse during diastole.
Pleural effusion present.
Compared to the prior on 09/06/2019, mild hypokinesis of the basal inferior wall
is new. Moderate pericardial effusion is new. Mild aortic regurgitation is
new.
-
03/18/24 NM Renal Scan Single W/lasix
IMPRESSION:
Difficult evaluation due to absence of left kidney for comparison. There appears to be relatively prompt perfusion/uptake of the right kidney and subjectively perhaps slightly delayed excretion from the right kidney. No overt scintigraphic evidence
for UPJ obstruction.
Physical Exam
Vital Signs/Labs
Vital Signs
Temp Pulse Resp BP Pulse Ox
97.7 F 75 16 122/71 100
03/19/24 03:00 03/19/24 04:35 03/19/24 03:00 03/19/24 04:35 03/19/24 04:35
03/18/24 03/19/24 03/20/24
06:59 06:59 06:59
Actual Weight 48.3 kg 47.429 kg
03/19/24 04:50
03/19/24 04:50
Magnesium 1.7 mg/dl (1.6-2.3) 03/15/24 03:12
03/13/24 03/15/24
00:17 03:12
Hua-F-Ygdgymdflcs Pept 1160 1060
Physical Exam
Cardiovascular: Rhythm & rate is regular, Pedal edema is absent, JVD pressure is normal and Systolic murmur absent
Respiratory: Respiratory effort normal, Lungs clear to auscul., Wheeze Absent and Crackles Absent
Neuro/Psych: AO x 3
Data Reviewed
-
Date of Service: March 19, 2024
EKG: Other (tele sinus rhythm)
[2024-03-19] MEDS: CRESTOR 10 MG PO (08:56)
[2024-03-19] MEDS: COREG 6.25 MG PO ×2 (08:56→20:47)
[2024-03-19] MEDS: ALPHAGAN 0.2% EYE DROPS 1 DROP OPHTH ×2 (08:57→20:47)
[2024-03-19] MEDS: LASIX IV ×2 (08:57→10:22)
[2024-03-19] MEDS: ASPIR LOW (ENTERIC COATED) 81 MG PO (08:57)
[2024-03-19] MEDS: TRUSOPT 2% OPHTHALMIC SOLUTION 1 DROP OPHTH ×2 (08:58→20:47)
[2024-03-19] MEDS: HEPARIN SC ×2 (08:58→20:48)
--- NOTE | 2024-03-19 08:59 | W.PN.HOSP.TC ---
Addendum entered and electronically signed by Asim Rodriguez MD 03/19/24 16:24:
seen and examined by me independently in collaboration with the medical dosimetrist.
Lab data data reviewed.
Addendum as below :
Persistent rise in creatinine. So far post renal obstruction seems to be excluded. Lasix scan noted. Discussed with nephrology-will do serology workup to make sure there is no vasculitis. May need to consider biopsy.
For repeat echocardiogram to evaluate for any reaccumulation of pericardial effusion-so far pericardial fluid studies are nondiagnostic.
Original Note:
Today's Communication/Plan
-
Continue Lasix per nephro
repeat echo today
Assessment / Plan
Assessment / Plan
pt is an 78 year old male
Right Upper Extremity Edema--Likely due to volume overload, less likely DVT and US negative--Elevate right arm above level of heart--stop diuresis per nephro
Volume Overload-- Pt presents with penile swelling and RUE edema--BNP 1060-- deferring diuresis to renal--watch creat. Today 4.7 - Volume overload cardio vs renal -- Pericardial drain removed -- repeat echo shows 2.3 pericardial effusion without
evidence of hemodynamic compromise--cards will repeat echo today--Lasix scan shows relatively prompt perfusion/uptake of the right kidney and subjectively perhaps slightly delayed excretion from the right kidney -- No overt scintigraphic evidence
for UPJ obstruction -- nephro added lasix BID -- nephro appreciated
TORSTEN on CKD IV--unclear if cardiorenal vs renal disease progression--October 2023 creat was 2.8-- CT a/p mild right hydro nephrosis and possible cystitis (alicea cath unable to be placed due to coiling per nurse)-- Avoid nephrotoxics agents---pt with 1
kidney -- Kidney US ruled out post-obstructive renal etiologies, no hydronephrosis -- urology recommends no folly as long as pt is voiding well -- nephro following
Hyponatremia --today 129 -- nephro appreciated -- Monitor BMP
Hydronephrosis/Hx BPH- CT imaging as above- Likely contributing to above--urology ruled out post-renal causes-- urology signed off-- Continue home Flomax
Questionable Cystitis - Afebrile. No leukocytosis--hold on abx
Pericardial Effusion- Mod Pericardial effusion on CT imaging --Echo done -pericardial drain placed to drain fluid- Pericardial drain removed -- repeat echo shows pericardial effusion without evidence of hemodynamic compromise--cards following
Pleural Effusion- Mod right effusion, small left effusion on CT a/p, not obvious on CXR- No RR complaints or oxygen requirements- Consider repeat imaging-- No indication for thora at this time.
CAD, HTN/HLD- Reports hx OR/stent- Continue home aspirin/statin/BB/Nifedipine- Meds need reconciliation: Pt does not know BB dose, Hector Mosher will bring in
Sacral wound
-Stage 1 coccyx pressure injury
-Wound care assessed
-No immediate therapy required
-Monitor
Renal Ca - hx L Nephrectomy noted.
Glaucoma - Continue home eye drops
DVT ppx: Heparin
Code Status: Full
Anticipated Discharge: > 48 hours
Subjective/Interval History
-
Date of Service: March 19, 2024
Objective Data
-
Labs:
Laboratory Results
03/19/24
04:50
WBC 5.8
Hgb 9.7 L
Hct 27.7 L
Plt Count 265
Sodium 129 L
Potassium 3.5
Chloride 100
Carbon Dioxide 20 L
BUN 54 H
Creatinine 4.7 H*
Glucose 115 H
Calcium 7.6 L
Vital Signs:
Vital Signs
Temp Pulse Resp BP Pulse Ox
97.7 F 75 16 122/71 100
03/19/24 03:00 03/19/24 04:35 03/19/24 03:00 03/19/24 04:35 08/09/24 04:35
I&O
03/18/24 03/19/24 03/20/24
06:59 06:59 06:59
Intake Total 480 / 480 520 / 520
Output Total 250 / 250 700 / 700
Balance 230 / 230 -180 / -180
Review of Systems
-
History Source: Patient
EENT: Reports No Symptoms Reported
Respiratory: Reports No Symptoms
Cardiac: Reports No Symptoms
Abdomen/GI: Reports No Symptoms
Genitourinary: Reports No Symptoms
Neuro: Reports No Symptoms
Physical Exam
-
General: No Apparent Distress
Respiratory: Clear to Auscultation
Cardiac: Regular Rhythm and S1/S2
GI: Soft, Nontender (Tender at site of pericardial drain incision), Nondistended and Normal Bowel Sounds
Musculoskeletal: Edema, Right Upper Extrem (significantly decreased from prior)
Skin: Warm and Dry
Neuro: AO x 3
Psych: Calm
[2024-03-19] MEDS: FLUSH (NSS) 1 FLUSH IV (09:02)
[2024-03-19 10:49] LABS: Erythrocyte Sed Rate 30 mm/hour (0-20)
[2024-03-19] MEDS: LASIX 40 MG IV ×2 (10:50→17:14)
--- NOTE | 2024-03-19 10:51 | W.PN.NEPH.PH ---
Today's Communication / Plan
-
lasix
Assessment/Plan
-
Impression:
Acute kidney injury
Chronic kidney disease stage IV with baseline creatinine of 2,8
Penis and right upper extremity edema/volume overload
Hydronephrosis
Cystitis
Pericardial and pleural effusion
Coronary artery disease
Hypertension
Peripheral vascular disease
Renal cancer with history of left nephrectomy
Plan:
follow BMP
serologic w/u
continue lasix
clinically he has nephrotic syndrome
I previously thought that this was due to hypertensive nephrosclerosis with secondary FSGS. We had tried to avoid biopsy given the fact that he has only a solitary kidney and his blood pressures were always slightly high. At this time however a
renal biopsy may be more beneficial given worsening renal function with what appears to be nephrotic syndrome. I discussed this at length with the patient especially given the attendant risks with a solitary kidney biopsy. We will determine the
need for this in the next 2 days.
I would not give steroids at this time as this does not appear to be uremic pericarditis. However if it turns out that this is a vasculitic process or autoimmune process steroids may be helpful.
-
-
Date of Service: March 19, 2024
CC / HPI / ROS
-
Chief Complaint:
TORSTEN
History of Present Illness:
TORSTEN/Cr up to 4.7
Na stable low 129
s/p pericardiocentesis 03/15
BP stable
edema better
Review of Systems:
Nonoliguric
No chest pain or shortness of breath
Labs
-
Labs:
WBC 5.8 10^3/uL (4.8-10.8) 03/19/24 04:50
RBC 3.36 10^6/uL (4.70-6.10) L 03/19/24 04:50
Hgb 9.7 g/dL (13.0-18.0) L 03/19/24 04:50
Hct 27.7 % (39.0-52.0) L 03/19/24 04:50
Plt Count 265 10^3/uL (130-400) 03/19/24 04:50
Sodium 129 mmol/L (135-145) L 03/19/24 04:50
Potassium 3.5 mmol/L (3.5-5.1) 03/19/24 04:50
Chloride 100 mmol/L (98-107) 03/19/24 04:50
Carbon Dioxide 20 mmol/L (22-30) L 03/19/24 04:50
BUN 54 mg/dl (9-20) H 03/19/24 04:50
Creatinine 4.7 mg/dL (0.7-1.3) H* 03/19/24 04:50
eGFR 11.88 03/19/24 04:50
Glucose 115 mg/dl (70-99) H 03/19/24 04:50
Calcium 7.6 mg/dl (8.4-10.2) L 03/19/24 04:50
Xfp-V-Zkuyhatlhnw Pept 1060 pg/ml 03/15/24 03:12
Albumin 2.9 g/dl (3.5-5.0) L 03/18/24 04:41
Physical Exam
-
Vital Signs:
Vital Signs
Temp Pulse Resp BP Pulse Ox
98.1 F 79 16 151/78 100
03/19/24 09:58 03/19/24 10:00 03/19/24 09:58 03/19/24 09:58 03/19/24 09:58
Cardiovascular:: Regular rate and rhythm
Respiratory:: Bilateral: Coarse
Lung Excursion:: Normal
Abdomen:: Nontender and Soft
Bowel Sounds:: Normal
Extremity Edema:: None: Bilateral:
--- NOTE | 2024-03-19 11:13 | W.PN.URO.CBU ---
Today's Communication / Plan
-
no gu intervention
Assessment / Plan
-
TORSTEN with 800 cc urine did u/s Renal scan without obtructio ie no reversibe gu etiology of torsten wi; sign off reconsult prn
Diagnosis
-
Date of Service: March 19, 2024
-
Patient Diagnosis:
Post Op Day:
Patient Diagnosis:
Post Op Day:
Patient Diagnosis:
Post Op Day:
Patient Diagnosis:
Post Op Day:
Patient Diagnosis:
Post Op Day:
Patient Diagnosis:
Post Op Day:
Patient Diagnosis:
Post Op Day:
Patient Diagnosis CKD 3 BUT CREATINE 2.8 TO 4.1 solitary rt kidney with mild hydto ct scan
bladder empties but possib;e cystis post xrt for acp. Pt with no voiding probelms empties with good stream may have high pressure voiding causing backpressure on kidney also causing hydro as opposed to obstruction
Post Op Day:
Subjective
-
no gu complaints and ;as les edema and sob
Objective
-
Vital Signs
Temp Pulse Resp BP Pulse Ox
98.1 F 79 16 151/78 100
03/19/24 09:58 03/19/24 10:00 03/19/24 09:58 03/19/24 09:58 03/19/24 09:58
Intake and Output
03/18/24 03/19/24 03/20/24
06:59 06:59 06:59
Intake Total 480 / 480 520 / 520
Output Total 250 / 250 700 / 700
Balance 230 / 230 -180 / -180
Intake:
Oral fluids 480 / 480 520 / 520
Output:
Urine, Voided 250 / 250 700 / 700
Laboratory Results
03/19/24 04:50
03/19/24 04:50
Review of Systems
-
: No Symptoms
Physical Exam
-
General - well developed, well nourished, no acute distress
Chest - clear bilaterally
Abdomen - soft, non-tender, positive bowel sounds, no CVAT, no incisional pain or distention
Genitalia - normal
Rectal - normal
Skin - warm & dry with no rash
Neuro - AOx3, no motor deficits
Extremities - no clubbing, no cyanosis, no edema
Incision - clean, dry
Dressing - clean, dry, intact
Care Review
Data Reviewed
Discussed with: Hospitalist
CT Scan: Image Pers Reviewed
[2024-03-19 11:42] LABS: Glycohemoglobin (HgbA1c) 5.5 % (4.0-5.6)
--- NOTE | 2024-03-19 14:14 | CM ---
Reviewed chart. Met with Mr. Boogie to review discharge plans. He states he is feeling okay. Prior to admission he resides alone in a two story home with a ramp to enter. He has family members that provide assistance. He uses an electric
wheelchair for mobility. His daughter assists with adls. He has a stair glide to get to the second floor to shower. He has a manual wheelchair, electric wheelchair, and stair glide. He states he can transfer himself from wheelchair to bed. He
does not have any VNA Services in the home. He is not sure he wants VNA. Will need to see his current functional level to see if he will have any skilled care needs. Medical work-up in progress. The discharge plan is to return home with family
support when medically stable.
[2024-03-19 14:40] LABS: Urine Sodium 67 mmol/L (30-90)
[2024-03-19] MEDS: PROCARDIA XL (EXTENDED RELEASE) 60 MG PO (22:09)
[2024-03-19] MEDS: FLOMAX 0.4 MG PO (22:09)
[2024-03-19] MEDS: XALATAN OPHTHALMIC SOLUTION 1 DROP OPHTH (23:04)
[2024-03-20] VITALS (8 sets, daily range): BP systolic 118–187; BP diastolic 62–81
--- NOTE | 2024-03-20 01:03 | PTCARENOTE ---
Received patient at change of shift. OOB in wheel chair, talking on phone and eating dinner. BP 145/80, sinus rhythm with prolonged QT, HR 60s, oxygen 100% RA, dyspnic on exertion. 24hr urine collection started at 1930. Urinating in urinal,
collection on ice in bathroom on floor. Patient shared frustrations of swelling returning in penis with no reasons why. Offered comfort measures. Towel placed underneath penis for elevation. Discussed plan of care and urine collection. Call skinner
within reach.
[2024-03-20 04:58] LABS: Hematocrit 26.2 % (39.0-52.0); Hemoglobin 9.2 g/dL (13.0-18.0); Mean Corp Hgb Conc. 35.1 g/dL (33.0-37.0); Mean Corpuscular Hgb 29.5 pg (27.0-31.0); Mean Platelet Volume 9.8 fL (7.4-10.4); Platelet Count 244 10^3/uL (130-400); Red Blood Cell Count 3.12 10^6/uL (4.70-6.10); Red Cell Dist. Width 13.2 % (11.5-14.5); White Blood Cell Count 6.4 10^3/uL (4.8-10.8)
[2024-03-20 05:20] LABS: Blood Urea Nitrogen 54 mg/dl (9-20); Calcium 7.6 mg/dl (8.4-10.2); Carbon Dioxide 20 mmol/L (22-30); Chloride 101 mmol/L (98-107); Estimated Creatinine Clearance 3 ml/min; Glucose 94 mg/dl (70-99); Potassium 3.5 mmol/L (3.5-5.1); Sodium 130 mmol/L (135-145); eGFR 12.19
--- NOTE | 2024-03-20 08:15 | W.PN.CD ---
Today's Communication / Plan
-
care as per nephrology
Impression / Plan
-
77-year-old patient well-known to Dr. Aguillon with history of CAD, PAD (bilateral AKA's), hypertension, mitral regurgitation, right carotid stenosis (followed by Dr. Virgen), hyperlipidemia and stage IIIb CKD (prior renal cell cancer and left
nephrectomy), presenting with volume overload, now status post-pericardiocentesis 03/16. Cr unchanged 48 hours after effusion drainage.
Pericardial effusion:
-successful pericardiocentesis on 03/15/24 :fluid studies borderline transudative/exudative per Light's criteria, cyto/micro pending
-drain removed on 03/16/24 after little ongoing drainage, follow up echo 03/18/24 shows re-accumulation without HD compromise
-Repeat echo 03/19/24 stable without hd compromise
-will not treat with NSAIDs/colchicine given CKD, no chest pain currently, no role for steroids at this time
-unclear etiology of effusion: ?progressive CKD?neprhotic syn. It is unlikely due to CHF, his pcwp was 14 after drainage, micro is negative
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
-nephrology c/f neprhotic syndrome
-Creat now in 4 range, increased today at 4.7. Previously 2.8/2.9 range in September and October 2023
-patient fixated on perfusion being the source of the issue, but normal on NM lasix scan
CAD:
-Denies anginal symptoms.
-Continue medical therapy
-statin titration limited with renal function-on rosuvastatin and zetia
Mitral regurgitation, mild to moderate:
-stable on repeat echo 03/15
PAD:
-followed by Dr. Virgen
HTN:
-Blood pressure now controlled (changed from metoprolol to tartrate to tartrate to Coreg); continue current medication regimen.
Hydronephrosis:
-per urology,no obstruction
Subjective:
He is withoug complaint. He thinks every thing is due to 'lack of blood flow to the kidney'.
Data:
TTE 03/19/24: CONCLUSIONS
Normal left ventricular systolic function.
Normal right ventricular size and function.
Limited valvular interrogation.
Moderate anteriorly pericardial effusion, measuring 2.3 cm, without evidence of hemodynamic compromise.
Pleural effusion present.
Compared to March 15, 2024, moderate sized anterior pericardial effusion is
present previously drained.
TTE 03/15/24: Left ventricle is small in size with moderate concentric left ventricular
hypertrophy. Low normal left ventricular systolic function. Left ventricular
ejection fraction is 50-55% by De La Torre's method of disc.
Hypokinesis of the basal inferior wall.
Normal right ventricular size and function.
Mild aortic regurgitation.
Moderate pericardial effusion with the largest pocket anterior to the right
ventricle (1.6 cm).
There is evidence of hemodynamic compromise with intermittent right ventricular
collapse during diastole.
Pleural effusion present.
Compared to the prior on 09/06/2019, mild hypokinesis of the basal inferior wall
is new. Moderate pericardial effusion is new. Mild aortic regurgitation is
new.
-
03/18/24 NM Renal Scan Single W/lasix
IMPRESSION:
Difficult evaluation due to absence of left kidney for comparison. There appears to be relatively prompt perfusion/uptake of the right kidney and subjectively perhaps slightly delayed excretion from the right kidney. No overt scintigraphic evidence
for UPJ obstruction.
Physical Exam
Vital Signs/Labs
Vital Signs
Temp Pulse Resp BP Pulse Ox
97.8 F 71 16 118/62 100
03/20/24 04:59 03/20/24 04:38 03/20/24 04:59 03/20/24 04:38 03/20/24 04:59
03/19/24 03/20/24 03/21/24
06:59 06:59 06:59
Actual Weight 47.429 kg 46 kg
03/20/24 04:38
03/20/24 04:38
Magnesium 1.7 mg/dl (1.6-2.3) 03/15/24 03:12
03/13/24 03/15/24
00:17 03:12
Brn-G-Ifnwvxawytm Pept 1160 1060
Physical Exam
Constitutional: No acute distress
Cardiovascular: Rhythm & rate is regular, Pedal edema is absent and JVD pressure is normal
Respiratory: Respiratory effort normal, Lungs clear to auscul., Wheeze Absent, Crackles Absent and Rhonchi Absent
Neuro/Psych: AO x 3
Data Reviewed
-
Date of Service: March 20, 2024
Medical Decision Making: Review of Case with other Provider (tele sinus)
[2024-03-20] MEDS: COREG 6.25 MG PO ×2 (09:02→20:13)
[2024-03-20] MEDS: CRESTOR 10 MG PO (09:03)
[2024-03-20] MEDS: HEPARIN SC ×2 (09:03→20:02)
[2024-03-20] MEDS: ASPIR LOW (ENTERIC COATED) 81 MG PO (09:03)
[2024-03-20] MEDS: TRUSOPT 2% OPHTHALMIC SOLUTION 1 DROP OPHTH ×2 (09:04→20:13)
[2024-03-20] MEDS: ALPHAGAN 0.2% EYE DROPS 1 DROP OPHTH ×2 (09:04→20:13)
[2024-03-20] MEDS: LASIX IV ×2 (09:04→19:31)
--- NOTE | 2024-03-20 10:00 | W.PN.UPDATE ---
Addendum entered and electronically signed by Asim Rodriguez MD 03/25/24 09:19:
Low sodium suggestive of hyponatremia noted.
Stage 2 coccyx pressure injury, POA.
Original Note:
Update Note
Progress Note Update
Seen and examined by me independently in collaboration with the medical clerk.
Lab data data reviewed.
Addendum as below :
No issues from overnight.
Hemodynamically stable.
Serology workup For renal disease pending.
Echocardiogram from yesterday shows stable moderate pericardial effusion without hemodynamic compromise.
Cr remains elevated.
Patient today is says that he thinks his kidney dysfunction is all from poor vascular flow. 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 He had a aorta with runoff MRA in 2020 which shows right
renal artery is patent and there is no fibrosis evident then. He had a Lasix renal scan on this admission which showed prompt uptake of radioisotope the kidney. Doubt vascular etiology. Discussed with nephrology-would obtain a duplex of the renal
artery.
Plans for renal biopsy noted.
--- NOTE | 2024-03-20 10:45 | W.PN.HOSP.TC ---
Today's Communication/Plan
-
* Continue diuresis
* Renal biopsy planned for next week.
* Echo without hemodynamic compromise; monitor closely
Assessment / Plan
Assessment / Plan
pt is an 78 year old male
Right Upper Extremity Edema--Likely due to volume overload, less likely DVT and US negative--Elevate right arm above level of heart--stop diuresis per nephro
Volume Overload-- Pt presents with penile swelling and RUE edema--BNP 1060-- Today 4.6 - Volume overload cardio vs renal -- Pericardial drain removed -- repeat echo shows 2.3 pericardial effusion without evidence of hemodynamic compromise--Lasix
scan shows relatively prompt perfusion/uptake of the right kidney and subjectively perhaps slightly delayed excretion from the right kidney -- No overt scintigraphic evidence for UPJ obstruction --lasix BID -- plan for a biopsy -- serological
work-up pending
TORSTEN on CKD IV--unclear if cardiorenal vs renal disease progression--October 2023 creat was 2.8-- CT a/p mild right hydro nephrosis and possible cystitis (alicea cath unable to be placed due to coiling per nurse)-- Avoid nephrotoxics agents---pt with 1
kidney -- Kidney US ruled out post-obstructive renal etiologies, no hydronephrosis -- urology recommends no folly as long as pt is voiding well -- nephro following
Hyponatremia --today 130 -- Stable -- Monitor BMP
Hydronephrosis/Hx BPH- CT imaging as above- Likely contributing to above--urology ruled out post-renal causes-- urology signed off-- Continue home Flomax
Questionable Cystitis - Afebrile. No leukocytosis--hold on abx
Pericardial Effusion- Mod Pericardial effusion on CT imaging --Echo done -pericardial drain placed to drain fluid- Pericardial drain removed -- repeat echo shows pericardial effusion without evidence of hemodynamic compromise--cards following
Pleural Effusion- Mod right effusion, small left effusion on CT a/p, not obvious on CXR- No RR complaints or oxygen requirements- Consider repeat imaging-- No indication for thora at this time.
CAD, HTN/HLD- Reports hx WI/stent- Continue home aspirin/statin/BB/Nifedipine- Meds need reconciliation: Pt does not know BB dose, Hector Mosher will bring in
Sacral wound
-Stage 1 coccyx pressure injury
-Wound care assessed
-No immediate therapy required
-Monitor
Renal Ca - hx L Nephrectomy noted.
Glaucoma - Continue home eye drops
DVT ppx: Heparin
Code Status: Full
Anticipated Discharge: > 48 hours
Subjective/Interval History
-
Date of Service: March 20, 2024
Objective Data
-
Labs:
Laboratory Results
03/20/24
04:38
WBC 6.4
Hgb 9.2 L
Hct 26.2 L
Plt Count 244
Sodium 130 L
Potassium 3.5
Chloride 101
Carbon Dioxide 20 L
BUN 54 H
Creatinine 4.6 H*
Glucose 94
Calcium 7.6 L
Vital Signs:
Vital Signs
Temp Pulse Resp BP Pulse Ox
97.8 F 85 16 162/81 100
03/20/24 04:59 03/20/24 09:02 03/20/24 04:59 03/20/24 09:02 03/20/24 04:59
I&O
03/19/24 03/20/24 03/21/24
06:59 06:59 06:59
Intake Total 520 / 520
Output Total 700 / 700 1380 / 1380
Balance -180 / -180 -1380 / -1380
Review of Systems
-
History Source: Patient
EENT: Reports No Symptoms Reported
Respiratory: Reports No Symptoms
Cardiac: Reports No Symptoms
Abdomen/GI: Reports No Symptoms
Genitourinary: Reports No Symptoms
Neuro: Reports No Symptoms
Physical Exam
-
General: No Apparent Distress
Respiratory: Clear to Auscultation
Cardiac: Regular Rhythm and S1/S2
GI: Soft, Nontender (Tender at site of pericardial drain incision), Nondistended and Normal Bowel Sounds
Musculoskeletal: Edema, Right Upper Extrem (significantly decreased from prior)
Skin: Warm and Dry
Neuro: AO x 3
Psych: Calm
--- NOTE | 2024-03-20 11:51 | W.PN.NEPH.PH ---
Today's Communication / Plan
-
renal duplex
Assessment/Plan
-
Impression:
Acute kidney injury
Chronic kidney disease stage IV with baseline creatinine of 2,8
Penis and right upper extremity edema/volume overload
Hydronephrosis
Cystitis
Pericardial and pleural effusion
Coronary artery disease
Hypertension
Peripheral vascular disease
Renal cancer with history of left nephrectomy
Plan:
follow BMP
serologic w/u pending
continue lasix
clinically he has nephrotic syndrome
check renal duplex
no emergent HD needs
-
-
Date of Service: March 20, 2024
CC / HPI / ROS
-
Chief Complaint:
TORSTEN
History of Present Illness:
TORSTEN/Cr stable at 4.6
Na stable low 130
s/p pericardiocentesis 03/15
BP stable
edema better
Review of Systems:
Nonoliguric
No chest pain or shortness of breath
Labs
-
Labs:
WBC 6.4 10^3/uL (4.8-10.8) 03/20/24 04:38
RBC 3.12 10^6/uL (4.70-6.10) L 03/20/24 04:38
Hgb 9.2 g/dL (13.0-18.0) L 03/20/24 04:38
Hct 26.2 % (39.0-52.0) L 03/20/24 04:38
Plt Count 244 10^3/uL (130-400) 03/20/24 04:38
Sodium 130 mmol/L (135-145) L 03/20/24 04:38
Potassium 3.5 mmol/L (3.5-5.1) 03/20/24 04:38
Chloride 101 mmol/L (98-107) 03/20/24 04:38
Carbon Dioxide 20 mmol/L (22-30) L 03/20/24 04:38
BUN 54 mg/dl (9-20) H 03/20/24 04:38
Creatinine 4.6 mg/dL (0.7-1.3) H* 03/20/24 04:38
eGFR 12.19 03/20/24 04:38
Glucose 94 mg/dl (70-99) 03/20/24 04:38
Calcium 7.6 mg/dl (8.4-10.2) L 03/20/24 04:38
Oin-G-Yujmouidafo Pept 1060 pg/ml 03/15/24 03:12
Albumin 2.9 g/dl (3.5-5.0) L 03/18/24 04:41
Physical Exam
-
Vital Signs:
Vital Signs
Temp Pulse Resp BP Pulse Ox
97.8 F 85 16 162/81 100
03/20/24 04:59 03/20/24 09:02 03/20/24 04:59 03/20/24 09:02 03/20/24 04:59
Cardiovascular:: Regular rate and rhythm
Respiratory:: Bilateral: Coarse
Lung Excursion:: Normal
Abdomen:: Nontender and Soft
Bowel Sounds:: Normal
Extremity Edema:: None: Bilateral:
[2024-03-20 20:09] LABS: 24 Hour Urine Total Volume 1150 ml; Osmolality 24 Hour Urine 235 mOsm/kg (300-900)
[2024-03-20 20:28] LABS: 24 Hour Urine Protein 1253.5 mg/day (42-225); Urine Protein 109 mg/dl (0-12)
[2024-03-20] MEDS: FLOMAX 0.4 MG PO (22:22)
[2024-03-20] MEDS: PROCARDIA XL (EXTENDED RELEASE) 60 MG PO (22:22)
[2024-03-20] MEDS: XALATAN OPHTHALMIC SOLUTION 1 DROP OPHTH (22:22)
[2024-03-21] VITALS (10 sets, daily range): BP systolic 96–205; BP diastolic 56–103
[2024-03-21 03:28] LABS: Hematocrit 24.4 % (39.0-52.0); Hemoglobin 8.6 g/dL (13.0-18.0); Mean Corp Hgb Conc. 35.2 g/dL (33.0-37.0); Mean Corpuscular Hgb 29.2 pg (27.0-31.0); Mean Corpuscular Volume 82.7 fL (80.0-94.0); Mean Platelet Volume 9.8 fL (7.4-10.4); Platelet Count 254 10^3/uL (130-400); Red Blood Cell Count 2.95 10^6/uL (4.70-6.10); Red Cell Dist. Width 13.6 % (11.5-14.5); White Blood Cell Count 5.6 10^3/uL (4.8-10.8)
[2024-03-21 03:43] LABS: Blood Urea Nitrogen 58 mg/dl (9-20); Calcium 7.4 mg/dl (8.4-10.2); Carbon Dioxide 18 mmol/L (22-30); Chloride 100 mmol/L (98-107); Estimated Creatinine Clearance 3 ml/min; Glucose 99 mg/dl (70-99); Potassium 3.4 mmol/L (3.5-5.1); Sodium 130 mmol/L (135-145)
--- NOTE | 2024-03-21 03:56 | PTCARENOTE ---
Received pt at change of shift. POC discussed- 24 hr urine completed and sent to lab as scanned. Pt OOB to the wheelchair. minimal assistance needed. pt is able to move and reposition self in bed. no complaints at this time. Pt refusing Lasix on
days- and Hep sq. this evening. SR/SB on the monitor. BP labile this shift.
[2024-03-21] MEDS: TRUSOPT 2% OPHTHALMIC SOLUTION 1 DROP OPHTH ×2 (09:15→19:23)
[2024-03-21] MEDS: ALPHAGAN 0.2% EYE DROPS 1 DROP OPHTH ×2 (09:15→19:23)
[2024-03-21] MEDS: CRESTOR 10 MG PO (09:18)
[2024-03-21] MEDS: ASPIR LOW (ENTERIC COATED) 81 MG PO (09:18)
[2024-03-21] MEDS: COREG 6.25 MG PO ×2 (09:18→19:21)
--- NOTE | 2024-03-21 10:32 | W.PN.CD ---
Today's Communication / Plan
-
repeat focused echo prior to discharge
please let us know when discharge is planned and can arrange echo before
No further cardiac recommendations
I will sign off
Impression / Plan
-
77-year-old patient well-known to Dr. Aguillon with history of CAD, PAD (bilateral AKA's), hypertension, mitral regurgitation, right carotid stenosis (followed by Dr. Virgen), hyperlipidemia and stage IIIb CKD (prior renal cell cancer and left
nephrectomy), presenting with volume overload, now status post-pericardiocentesis 03/16. Cr unchanged 48 hours after effusion drainage.
Pericardial effusion:
-successful pericardiocentesis on 03/15/24 :fluid studies borderline transudative/exudative per Light's criteria, cyto/micro pending
-drain removed on 03/16/24 after little ongoing drainage, follow up echo 03/18/24 shows re-accumulation without HD compromise
-Repeat echo 03/19/24 stable without hd compromise
-would recommend repeat focused echo prior to discharge
-will not treat with NSAIDs/colchicine given CKD, no chest pain currently, no role for steroids at this time
-unclear etiology of effusion: ?progressive CKD?neprhotic syn. It is unlikely due to CHF, his pcwp was 14 after drainage, micro is negative
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
-nephrology c/f neprhotic syndrome
-Creat now in 4 range, increased today at 4.7. Previously 2.8/2.9 range in September and October 2023
-patient fixated on perfusion being the source of the issue, but normal on NM lasix scan
-u/s ordered
CAD:
-Denies anginal symptoms.
-Continue medical therapy
-statin titration limited with renal function-on rosuvastatin and zetia
Mitral regurgitation, mild to moderate:
-stable on repeat echo 03/15
PAD:
-followed by Dr. Virgen
HTN:
-Blood pressure now controlled (changed from metoprolol to tartrate to tartrate to Coreg); continue current medication regimen.
Hydronephrosis:
-per urology,no obstruction
Subjective:
He is without complaint.
Data:
TTE 03/19/24: CONCLUSIONS
Normal left ventricular systolic function.
Normal right ventricular size and function.
Limited valvular interrogation.
Moderate anteriorly pericardial effusion, measuring 2.3 cm, without evidence of hemodynamic compromise.
Pleural effusion present.
Compared to March 15, 2024, moderate sized anterior pericardial effusion is
present previously drained.
TTE 03/15/24: Left ventricle is small in size with moderate concentric left ventricular
hypertrophy. Low normal left ventricular systolic function. Left ventricular
ejection fraction is 50-55% by De La Torre's method of disc.
Hypokinesis of the basal inferior wall.
Normal right ventricular size and function.
Mild aortic regurgitation.
Moderate pericardial effusion with the largest pocket anterior to the right
ventricle (1.6 cm).
There is evidence of hemodynamic compromise with intermittent right ventricular
collapse during diastole.
Pleural effusion present.
Compared to the prior on 09/06/2019, mild hypokinesis of the basal inferior wall
is new. Moderate pericardial effusion is new. Mild aortic regurgitation is
new.
-
03/18/24 NM Renal Scan Single W/lasix
IMPRESSION:
Difficult evaluation due to absence of left kidney for comparison. There appears to be relatively prompt perfusion/uptake of the right kidney and subjectively perhaps slightly delayed excretion from the right kidney. No overt scintigraphic evidence
for UPJ obstruction.
Physical Exam
Vital Signs/Labs
Vital Signs
Temp Pulse Resp BP Pulse Ox
98.2 F 67 18 123/79 99
03/21/24 02:54 03/21/24 09:18 03/21/24 02:54 03/21/24 09:18 03/21/24 02:54
0803/21/24 03/22/24
06:59 06:59 06:59
Actual Weight 46 kg 46.992 kg
03/21/24 02:54
03/21/24 02:54
Magnesium 1.7 mg/dl (1.6-2.3) 03/15/24 03:12
03/13/24 03/15/24
00:17 03:12
Gxp-P-Ojdcuaiweyh Pept 1160 1060
Physical Exam
Constitutional: No acute distress
Cardiovascular: Rhythm & rate is regular, Pedal edema is absent (b/l aka), JVD pressure is normal, Systolic murmur absent and Diastolic murmur absent
Respiratory: Respiratory effort normal, Lungs clear to auscul., Wheeze Absent and Crackles Absent
Neuro/Psych: AO x 3
Data Reviewed
-
Date of Service: March 21, 2024
Medical Decision Making: Review of Case with other Provider (Dr Rodriguez will get echo prior to d/c and sign off)
--- NOTE | 2024-03-21 10:33 | W.PN.HOSP.TC ---
Addendum entered and electronically signed by Asim Rodriguez MD 03/21/24 12:41:
I saw and evaluated the patient. I reviewed the resident�s note and agree with findings and plan as documented in the resident�s note.
No overnight events .
Cr continues to raise but no fluid overload or hyperK.
No immediate need for HD.
For Renal artery duplex.
Nephrology thoughts on renal biopsy noted.
Original Note:
Today's Communication/Plan
-
- Renal duplex today.
- Renal biopsy planned for next week.
- Echo without hemodynamic compromise; monitor closely
Assessment / Plan
Assessment / Plan
pt is an 78 year old male
Right Upper Extremity Edema--Likely due to volume overload, less likely DVT and US negative--Elevate right arm above level of heart--stop diuresis per nephro
Volume Overload-- Pt presents with penile swelling and RUE edema--BNP 1060-- Today 4.6 - Volume overload cardio vs renal -- Pericardial drain removed -- repeat echo shows 2.3 pericardial effusion without evidence of hemodynamic compromise--Lasix
scan shows relatively prompt perfusion/uptake of the right kidney and subjectively perhaps slightly delayed excretion from the right kidney -- No overt scintigraphic evidence for UPJ obstruction --hold lasix -- plan for a biopsy -- immonological
work-up pending -- renal duplex today
TORSTEN on CKD IV--unclear if cardiorenal vs renal disease progression--October 2023 creat was 2.8-- CT a/p mild right hydro nephrosis and possible cystitis (alicea cath unable to be placed due to coiling per nurse)-- Avoid nephrotoxics agents---pt with 1
kidney -- Kidney US ruled out post-obstructive renal etiologies, no hydronephrosis -- urology recommends no folly as long as pt is voiding well -- nephro following
Hyponatremia -- Stable -- Monitor BMP
Hydronephrosis/Hx BPH- CT imaging as above- Likely contributing to above--urology ruled out post-renal causes-- urology signed off-- Continue home Flomax
Questionable Cystitis - Afebrile. No leukocytosis--hold on abx
Pericardial Effusion- Mod Pericardial effusion on CT imaging --Echo done -pericardial drain placed to drain fluid- Pericardial drain removed -- repeat echo shows pericardial effusion without evidence of hemodynamic compromise--cards following
Pleural Effusion- Mod right effusion, small left effusion on CT a/p, not obvious on CXR- No RR complaints or oxygen requirements- Consider repeat imaging-- No indication for thora at this time.
CAD, HTN/HLD- Reports hx DE/stent- Continue home aspirin/statin/BB/Nifedipine- Meds need reconciliation: Pt does not know BB dose, Hector Mosher will bring in
Sacral wound
-Stage 1 coccyx pressure injury
-Wound care assessed
-No immediate therapy required
-Monitor
Renal Ca - hx L Nephrectomy noted.
Glaucoma - Continue home eye drops
DVT ppx: Heparin
Code Status: Full
Anticipated Discharge: > 48 hours
Subjective/Interval History
-
Date of Service: March 21, 2024
Objective Data
-
Labs:
Laboratory Results
03/21/24
02:54
WBC 5.6
Hgb 8.6 L
Hct 24.4 L
Plt Count 254
Sodium 130 L
Potassium 3.4 L
Chloride 100
Carbon Dioxide 18 L
BUN 58 H
Creatinine 4.9 H*
Glucose 99
Calcium 7.4 L
Vital Signs:
Vital Signs
Temp Pulse Resp BP Pulse Ox
98.2 F 67 18 123/79 99
03/21/24 02:54 03/21/24 09:18 03/21/24 02:54 03/21/24 09:18 03/21/24 02:54
I&O
03/20/24 03/21/24 03/22/24
06:59 06:59 06:59
Intake Total 240 / 240
Output Total 1380 / 1380 400 / 400
Balance -1380 / -1380 -160 / -160
Review of Systems
-
History Source: Patient
EENT: Reports No Symptoms Reported
Respiratory: Reports No Symptoms
Cardiac: Reports No Symptoms
Abdomen/GI: Reports No Symptoms
Genitourinary: Reports No Symptoms
Neuro: Reports No Symptoms
Physical Exam
-
General: No Apparent Distress
Respiratory: Clear to Auscultation
Cardiac: Regular Rhythm and S1/S2
GI: Soft, Nontender (Tender at site of pericardial drain incision), Nondistended and Normal Bowel Sounds
Musculoskeletal: Edema, Right Upper Extrem (significantly decreased from prior)
Skin: Warm and Dry
Neuro: AO x 3
Psych: Calm
[2024-03-21] MEDS: LASIX IV (10:40)
[2024-03-21] MEDS: HEPARIN SC ×2 (10:40→19:23)
--- NOTE | 2024-03-21 10:47 | W.PN.NEPH.PH ---
Today's Communication / Plan
-
await serologies
Assessment/Plan
-
Impression:
Acute kidney injury
Chronic kidney disease stage IV with baseline creatinine of 2,8
Penis and right upper extremity edema/volume overload
Hydronephrosis
Cystitis
Pericardial and pleural effusion
Coronary artery disease
Hypertension
Peripheral vascular disease
Renal cancer with history of left nephrectomy
Plan:
follow BMP
serologic w/u pending
stop lasix
clinically he has nephrotic syndrome
check renal duplex-friday
no emergent HD needs
he is aware that HD access will also be troublesome given his significant PAD
-
-
Date of Service: March 21, 2024
CC / HPI / ROS
-
Chief Complaint:
TORSTEN
History of Present Illness:
TORSTEN/Cr worse to 4.9
Na stable low 130
s/p pericardiocentesis 03/15
BP stable
K low 3.4
refused lasix yesterday and this morning
Review of Systems:
Nonoliguric
No chest pain or shortness of breath
Labs
-
Labs:
WBC 5.6 10^3/uL (4.8-10.8) 03/21/24 02:54
RBC 2.95 10^6/uL (4.70-6.10) L 03/21/24 02:54
Hgb 8.6 g/dL (13.0-18.0) L 03/21/24 02:54
Hct 24.4 % (39.0-52.0) L 03/21/24 02:54
Plt Count 254 10^3/uL (130-400) 03/21/24 02:54
Sodium 130 mmol/L (135-145) L 03/21/24 02:54
Potassium 3.4 mmol/L (3.5-5.1) L 03/21/24 02:54
Chloride 100 mmol/L (98-107) 03/21/24 02:54
Carbon Dioxide 18 mmol/L (22-30) L 03/21/24 02:54
BUN 58 mg/dl (9-20) H 03/21/24 02:54
Creatinine 4.9 mg/dL (0.7-1.3) H* 03/21/24 02:54
eGFR 11.30 03/21/24 02:54
Glucose 99 mg/dl (70-99) 03/21/24 02:54
Calcium 7.4 mg/dl (8.4-10.2) L 03/21/24 02:54
Onj-S-Uffyzwddyjk Pept 1060 pg/ml 03/15/24 03:12
Albumin 2.9 g/dl (3.5-5.0) L 03/18/24 04:41
Physical Exam
-
Vital Signs:
Vital Signs
Temp Pulse Resp BP Pulse Ox
98.2 F 63 18 123/79 99
03/21/24 02:54 03/21/24 10:00 03/21/24 02:54 03/21/24 09:18 03/21/24 02:54
Cardiovascular:: Regular rate and rhythm
Respiratory:: Bilateral: Coarse
Lung Excursion:: Normal
Abdomen:: Nontender and Soft
Bowel Sounds:: Normal
Extremity Edema:: None: Bilateral:
[2024-03-21] MEDS: XALATAN OPHTHALMIC SOLUTION 1 DROP OPHTH (21:16)
[2024-03-21] MEDS: FLOMAX 0.4 MG PO (21:16)
[2024-03-21] MEDS: PROCARDIA XL (EXTENDED RELEASE) 60 MG PO (21:16)
[2024-03-21 23:14] LABS: Complement C3 88 mg/dl (88-165)
[2024-03-22] VITALS (9 sets, daily range): BP systolic 125–184; BP diastolic 62–110
[2024-03-22 01:58] LABS: ANA, IgG Reflex to HEp-2 None Detected (None Detected)
[2024-03-22 03:59] LABS: Hematocrit 25.4 % (39.0-52.0); Hemoglobin 8.9 g/dL (13.0-18.0); Mean Corpuscular Hgb 29.6 pg (27.0-31.0); Mean Corpuscular Volume 84.4 fL (80.0-94.0); Mean Platelet Volume 10.2 fL (7.4-10.4); Platelet Count 243 10^3/uL (130-400); Red Blood Cell Count 3.01 10^6/uL (4.70-6.10); White Blood Cell Count 5.9 10^3/uL (4.8-10.8)
--- NOTE | 2024-03-22 04:17 | PTCARENOTE ---
Rec'd pt at change of shift. Pt on TELE monitor in NSR with VSS. Pt had episode of elevated BP with 193/89 1900, RN gave Coreg and Procardia per order and bp came down to 120/73 at 2200. Pt refused heparin therapy, RN educated on purpose of
medication. Pt verbalized understanding, yet declined medication. Pt denies any pain and agreed to report change in pain status to RN. Pt resting in bed with call skinner in reach.
[2024-03-22 04:41] LABS: Blood Urea Nitrogen 57 mg/dl (9-20); Calcium 7.3 mg/dl (8.4-10.2); Carbon Dioxide 18 mmol/L (22-30); Chloride 100 mmol/L (98-107); Estimated Creatinine Clearance 3 ml/min; Glucose 90 mg/dl (70-99); Potassium 3.5 mmol/L (3.5-5.1); Sodium 129 mmol/L (135-145); eGFR 11.88
--- NOTE | 2024-03-22 08:15 | PTCARENOTE ---
Assumed care of pt from prev nsg shift; Pt AAOx3 w/no c/o CP or SOB. Pt w/VS stable w/HR in the 60's & most recent BP 138/66; Pt is SR on telemetry monitoring. Pt called for Renal artery U/S & pt had not eaten since midnight of his own accord so
able to send for test. Pt able to transfer from wheelchair to stretcher w/ 2P contact guard assist for safety. Plan of care ongoing.
[2024-03-22 08:54] LABS: Myeloperoxidase Antibody 0 AU/mL (0-19); Serine Protease-3, IgG 3 AU/mL (0-19)
[2024-03-22] MEDS: HEPARIN SC ×2 (10:07→19:26)
[2024-03-22] MEDS: TRUSOPT 2% OPHTHALMIC SOLUTION 1 DROP OPHTH ×2 (10:14→19:24)
[2024-03-22] MEDS: ALPHAGAN 0.2% EYE DROPS 1 DROP OPHTH ×2 (10:14→19:24)
[2024-03-22] MEDS: ASPIR LOW (ENTERIC COATED) 81 MG PO (10:14)
[2024-03-22] MEDS: COREG 6.25 MG PO ×2 (10:14→19:24)
[2024-03-22] MEDS: CRESTOR 10 MG PO (10:14)
--- NOTE | 2024-03-22 13:07 | W.PN.HOSP.TC ---
Addendum entered and electronically signed by Lana Madrid MD 03/22/24 13:57:
seen and examined the patient with Residents
I personally performed a history and physical exam of the patient and discussed management with the resident. I reviewed the resident's note and agree with the documented findings and plan of care HPI/CC except changes in my documentation.
78-year-old male presented with right approximately edema and penile edema
Cardiovascular system S1-S2 appreciated-systolic murmur at apex
Chest decreased breath sounds at bases
Abdomen soft and nontender
No edema on the right arm
# Anasarca with right upper extremity edema and penile edema
Volume overload on admission with pericardial effusion and TORSTEN with nephrotic Syndrome
# Pericardial effusion
Pericardial effusion drained-drain removed
Repeat echo with decrease in the effusion
# Acute kidney injury CKD stage IV
Unilateral kidney-right
History of nephrectomy on the left for malignancy
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
Nephrotic range of proteinuria
Lasix can with relatively prompt perfusion/uptake of the right kidney
No evidence of UPJ obstruction-urology has evaluated
Serologies pending
Renal duplex done today-pending
May need renal biopsy-patient hesitant and agree may be risky with solitary kidney
May need dialysis soon (Renal to decide)
# Pleural effusion-moderate right and small left-not hypoxic
# Hyponatremia-likely secondary to volume overload
# History of prostate cancer with radiation
# Coronary artery disease history of stent-continue aspirin/statin/beta-mayank/nifedipine
# Mild to moderate mitral regurgitation
# Hypertension-current nifedipine and beta-blockers
# Hyperlipidemia-continue statin
# Anemia-likely secondary to any disease
# Stage I coccygeal pressure injury-wound care assessed
# Peripheral artery disease with bilateral AKA 2019 and 2020 and Fem-Fem- form bypass in 2018
# Glaucoma-continue eyedrops
# History of GI bleed
# Hypoalbuminemia
# Diverticulosis
# DVT prophylaxis-continue subcutaneous heparin
# CODE STATUS-full code
D/W RN
D/W Renal
Original Note:
Today's Communication/Plan
-
-renal duplex results pending
-serologies pending
-Plans for biopsy later in the week
Assessment / Plan
Assessment / Plan
pt is an 78 year old male
Right Upper Extremity Edema--Likely due to volume overload, less likely DVT and US negative--Elevate right arm above level of heart--stop diuresis per nephro
Volume Overload-- Pt presents with penile swelling and RUE edema--BNP 1060-- Today 4.7 - Volume overload cardio vs renal -- Pericardial drain removed -- repeat echo shows 2.3 pericardial effusion without evidence of hemodynamic compromise--Lasix
scan shows relatively prompt perfusion/uptake of the right kidney and subjectively perhaps slightly delayed excretion from the right kidney -- No overt scintigraphic evidence for UPJ obstruction --hold lasix -- plan for a biopsy -- immunological
work-up pending -- renal duplex today results pending
TORSTEN on CKD IV--unclear if cardiorenal vs renal disease progression--October 2023 creat was 2.8-- CT a/p mild right hydro nephrosis and possible cystitis (alicea cath unable to be placed due to coiling per nurse)-- Avoid nephrotoxics agents---pt with 1
kidney -- Kidney US ruled out post-obstructive renal etiologies, no hydronephrosis -- urology recommends no folly as long as pt is voiding well -- nephrotic syndrome per nephrology -- immunological serologies pending -- plans for biopsy
Hyponatremia -- Stable -- Monitor BMP
Hydronephrosis/Hx BPH--urology ruled out post-renal causes-- urology signed off-- Continue home Flomax
Questionable Cystitis - Afebrile. No leukocytosis--hold on abx
Pericardial Effusion- Mod Pericardial effusion on CT imaging --Echo done -pericardial drain placed to drain fluid- Pericardial drain removed -- repeat echo shows pericardial effusion without evidence of hemodynamic compromise--cards following
Pleural Effusion- Mod right effusion, small left effusion on CT a/p, not obvious on CXR- No RR complaints or oxygen requirements- Consider repeat imaging-- No indication for thora at this time.
CAD, HTN/HLD- Reports hx NC/stent- Continue home aspirin/statin/BB/Nifedipine- Meds need reconciliation: Pt does not know BB dose, Hector Mosher will bring in
Sacral wound
-Stage 1 coccyx pressure injury
-Wound care assessed
-No immediate therapy required
-Monitor
Renal Ca - hx L Nephrectomy noted.
Glaucoma - Continue home eye drops
DVT ppx: Heparin
Code Status: Full
Anticipated Discharge: > 48 hours
Subjective/Interval History
-
Date of Service: March 22, 2024
Objective Data
-
Labs:
Laboratory Results
03/22/24
03:28
WBC 5.9
Hgb 8.9 L
Hct 25.4 L
Plt Count 243
Sodium 129 L
Potassium 3.5
Chloride 100
Carbon Dioxide 18 L
BUN 57 H
Creatinine 4.7 H*
Glucose 90
Calcium 7.3 L
Vital Signs:
Vital Signs
Temp Pulse Resp BP Pulse Ox
98.6 F 58 20 142/67 100
03/22/24 11:20 03/22/24 11:24 03/22/24 11:20 03/22/24 11:24 03/22/24 11:23
I&O
03/21/24 03/22/24 03/23/24
06:59 06:59 06:59
Intake Total 240 / 240 240 / 240
Output Total 400 / 400 375 / 375
Balance -160 / -160 -135 / -135
Review of Systems
-
EENT: Reports No Symptoms Reported
Respiratory: Reports No Symptoms
Cardiac: Reports No Symptoms
Abdomen/GI: Reports No Symptoms
Genitourinary: Reports No Symptoms
Neuro: Reports No Symptoms
Physical Exam
-
Respiratory: Clear to Auscultation
Cardiac: Regular Rhythm and S1/S2
GI: Soft, Nontender and Nondistended
Musculoskeletal: Edema, Right Upper Extrem (significantly decreased from previous)
Skin: Warm and Dry
Neuro: AO x 3
Psych: Calm
[2024-03-22 13:15] LABS: 24 Hour Urine Total Volume Random mL; Urine Collection Length Random hr; Urine Free Kappa Light Chains 131.65 mg/L (0.00-32.90)
--- NOTE | 2024-03-22 13:49 | W.PN.NEPH.PH ---
Today's Communication / Plan
-
await serologies and renal duplex
Assessment/Plan
-
Impression:
Acute kidney injury
Chronic kidney disease stage IV with baseline creatinine of 2,8
Penis and right upper extremity edema/volume overload
Hydronephrosis
Cystitis
Pericardial and pleural effusion
Coronary artery disease
Hypertension
Peripheral vascular disease
Renal cancer with history of left nephrectomy
Plan:
AKI_cr seem no sig change for last few days
serologic w/u pending
cont to hold lasix
clinically he has nephrotic syndrome
pending renal duplex, NM scan with out obst
pt not willing for K biopsy if indicated
met acidosis-add po bicarb
BP mildly labile on meds
follow hyponatremia
no emergent HD needs
from previous discussions he is aware that HD access will also be troublesome given his significant PAD
d/w pt in detail
d/w nursing
-
-
Date of Service: March 22, 2024
CC / HPI / ROS
-
Chief Complaint:
TORSTEN
History of Present Illness:
TORSTEN/Cr slightly better at 4.7
Na low 129
s/p pericardiocentesis 03/15, echo on 03/19 mod effusion
BP stable
K low 3.5
Review of Systems:
subjectively Nonoliguric
No chest pain or shortness of breath
Labs
-
Labs:
WBC 5.9 10^3/uL (4.8-10.8) 03/22/24 03:28
RBC 3.01 10^6/uL (4.70-6.10) L 03/22/24 03:28
Hgb 8.9 g/dL (13.0-18.0) L 03/22/24 03:28
Hct 25.4 % (39.0-52.0) L 03/22/24 03:28
Plt Count 243 10^3/uL (130-400) 03/22/24 03:28
Sodium 129 mmol/L (135-145) L 03/22/24 03:28
Potassium 3.5 mmol/L (3.5-5.1) 03/22/24 03:28
Chloride 100 mmol/L (98-107) 03/22/24 03:28
Carbon Dioxide 18 mmol/L (22-30) L 03/22/24 03:28
BUN 57 mg/dl (9-20) H 03/22/24 03:28
Creatinine 4.7 mg/dL (0.7-1.3) H* 03/22/24 03:28
eGFR 11.88 03/22/24 03:28
Glucose 90 mg/dl (70-99) 03/22/24 03:28
Calcium 7.3 mg/dl (8.4-10.2) L 03/22/24 03:28
Grp-E-Yleoqgsfvjm Pept 1060 pg/ml 03/15/24 03:12
Albumin 2.9 g/dl (3.5-5.0) L 03/18/24 04:41
Physical Exam
-
Vital Signs:
Vital Signs
Temp Pulse Resp BP Pulse Ox
98.6 F 58 20 142/67 100
03/22/24 11:20 03/22/24 11:24 03/22/24 11:20 03/22/24 11:24 03/22/24 11:23
Cardiovascular:: Regular rate and rhythm
Respiratory:: Bilateral: CTA
Lung Excursion:: Normal
Abdomen:: Nontender and Soft
Stevenson Catheter: No
Other Findings::
bilat AKA
[2024-03-22 14:32] LABS: Iron 75 ug/dl (49-181)
[2024-03-22 14:38] LABS: Percent Saturation 31 % (20-50); Total Iron Binding Capacity 240 ug/dl (261-462)
[2024-03-22 16:29] LABS: Vitamin B12 396 pg/ml (239-931)
--- NOTE | 2024-03-22 16:40 | CM ---
Reviewed chart. Met with Mr. Boogie to review discharge plans. He states he is feeling okay. Prior to admission he resides alone in a two story home with a ramp to enter. He has family members that provide assistance. He can transfer from
wheelchair to bed. He has a barry wheelchair, Electric wheelchair and stair glide. He uses the stair glide to get to the second floor to shower. Will need to see his current functional level to see if he will have any skilled care needs. Medical
work-up in progress. The discharge plan is to return home when medically stable.
[2024-03-22] MEDS: SODIUM BICARBONATE 650 MG PO (19:24)
[2024-03-22] MEDS: FLOMAX 0.4 MG PO (22:42)
[2024-03-22] MEDS: XALATAN OPHTHALMIC SOLUTION 1 DROP OPHTH (22:44)
[2024-03-22] MEDS: PROCARDIA XL (EXTENDED RELEASE) 60 MG PO (22:47)
[2024-03-23] VITALS (11 sets, daily range): BP systolic 117–190; BP diastolic 60–91
--- NOTE | 2024-03-23 01:31 | SUR.OPER ---
Rec'd pt at change of shift on TELE monitor in NSR w VSS. Pt AAOx3. Pt's bp was elevated for 1900 vitals but decreased to baseline at 2300 (see flowchart). Pt denied any pain or discomfort and agreed to report any changes to RN immediately. Pt
transferred from WC to bed and now watching TV with call skinner in reach.
[2024-03-23 04:27] LABS: Hematocrit 25.8 % (39.0-52.0); Hemoglobin 9.1 g/dL (13.0-18.0); Mean Corp Hgb Conc. 35.3 g/dL (33.0-37.0); Mean Corpuscular Hgb 29.7 pg (27.0-31.0); Mean Corpuscular Volume 84.3 fL (80.0-94.0); Mean Platelet Volume 9.9 fL (7.4-10.4); Platelet Count 256 10^3/uL (130-400); Red Blood Cell Count 3.06 10^6/uL (4.70-6.10); Red Cell Dist. Width 12.9 % (11.5-14.5); White Blood Cell Count 7.3 10^3/uL (4.8-10.8)
[2024-03-23 04:53] LABS: ALT (SGPT) 73 U/L (0-50); AST (SGOT) 65 U/L (17-59); Albumin 3.5 g/dl (3.5-5.0); Alkaline Phosphatase 49 U/L (38-126); Blood Urea Nitrogen 56 mg/dl (9-20); Calcium 7.4 mg/dl (8.4-10.2); Carbon Dioxide 18 mmol/L (22-30); Chloride 101 mmol/L (98-107); Estimated Creatinine Clearance 3 ml/min; Glucose 89 mg/dl (70-99); Potassium 3.3 mmol/L (3.5-5.1); Sodium 129 mmol/L (135-145); Total Bilirubin 0.4 mg/dl (0.2-1.3); Total Protein 6.3 g/dl (6.3-8.2); eGFR 12.19
--- NOTE | 2024-03-23 08:00 | PTCARENOTE ---
Assumed care of pt from prev nsg shift; Pt AAOx3 w/no c/o CP or SOB. Pt w/VS stable w/HR in the 60's & most recent BP 117/60; Pt is SR on telemetry monitoring. Pt able to transfer from wheelchair w/1P contact guard assist for safety. Plan of care
ongoing.
[2024-03-23] MEDS: HEPARIN SC ×2 (09:32→19:23)
[2024-03-23] MEDS: COREG 6.25 MG PO ×2 (09:58→19:22)
[2024-03-23] MEDS: SODIUM BICARBONATE 650 MG PO ×2 (09:58→19:22)
[2024-03-23] MEDS: ALPHAGAN 0.2% EYE DROPS 1 DROP OPHTH ×2 (09:58→19:23)
[2024-03-23] MEDS: ASPIR LOW (ENTERIC COATED) 81 MG PO (09:58)
[2024-03-23] MEDS: CRESTOR 10 MG PO (09:58)
[2024-03-23] MEDS: TRUSOPT 2% OPHTHALMIC SOLUTION 1 DROP OPHTH ×2 (09:59→19:23)
--- NOTE | 2024-03-23 11:52 | W.PN.NEPH.PH ---
Today's Communication / Plan
-
await vasc eval
Assessment/Plan
-
Impression:
Acute kidney injury
Chronic kidney disease stage IV with baseline creatinine of 2,8
Penis and right upper extremity edema/volume overload
Hydronephrosis
Cystitis
Pericardial and pleural effusion
Coronary artery disease
Hypertension
Peripheral vascular disease
Renal cancer with history of left nephrectomy
Plan:
TORSTEN-cr slow to improve cr at 4.6, subjectively non oliguric
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
await SPEP likely need heme eval
vol status seem stable, cont to hold lasix
clinically he has nephrotic syndrome
>60% stenosis of right renal art of solitary kidney-vasc consulted
given his advanced CKD not sure if there will much of gain from intervention , risk of AURA is high and also he is allergic to contrast
pt not willing for K biopsy even if indicated
He understands that he will likely need HD in near future and aware AVF creation could be a challenge with wide spread PAD
met acidosis-cont po bicarb
repalce k, high K diet
BP mildly labile on meds
follow hyponatremia
no emergent HD needs
d/w pt in detail
-
-
Date of Service: March 23, 2024
CC / HPI / ROS
-
Chief Complaint:
TORSTEN
History of Present Illness:
TORSTEN/Cr slightly better at 4.6
Na low no change at 129
s/p pericardiocentesis 03/15, echo on 03/19 mod effusion
BP stable
K low 3.3
LFTs slightly up today
Review of Systems:
subjectively Nonoliguric
No chest pain or shortness of breath
appetite is improving
Labs
-
Labs:
WBC 7.3 10^3/uL (4.8-10.8) 03/23/24 04:09
RBC 3.06 10^6/uL (4.70-6.10) L 03/23/24 04:09
Hgb 9.1 g/dL (13.0-18.0) L 03/23/24 04:09
Hct 25.8 % (39.0-52.0) L 03/23/24 04:09
Plt Count 256 10^3/uL (130-400) 03/23/24 04:09
Sodium 129 mmol/L (135-145) L 03/23/24 04:09
Potassium 3.3 mmol/L (3.5-5.1) L 03/23/24 04:09
Chloride 101 mmol/L (98-107) 03/23/24 04:09
Carbon Dioxide 18 mmol/L (22-30) L 03/23/24 04:09
BUN 56 mg/dl (9-20) H 03/23/24 04:09
Creatinine 4.6 mg/dL (0.7-1.3) H* 03/23/24 04:09
eGFR 12.19 03/23/24 04:09
Glucose 89 mg/dl (70-99) 03/23/24 04:09
Calcium 7.4 mg/dl (8.4-10.2) L 03/23/24 04:09
Isj-N-Vkafbjgdfhy Pept 1060 pg/ml 03/15/24 03:12
Albumin 3.5 g/dl (3.5-5.0) 03/23/24 04:09
Physical Exam
-
Vital Signs:
Vital Signs
Temp Pulse Resp BP Pulse Ox
98.2 F 75 16 117/60 100
03/23/24 07:56 03/23/24 10:00 03/23/24 07:56 03/23/24 07:58 03/23/24 07:56
Cardiovascular:: Regular rate and rhythm
Respiratory:: Bilateral: CTA
Lung Excursion:: Normal
Abdomen:: Nontender and Soft
Stevenson Catheter: No
Other Findings::
bilat AKA
[2024-03-23] MEDS: KCL 40 MEQ PO (12:16)
[2024-03-23] MEDS: VITAMIN B-12 1000 MCG PO (12:18)
--- NOTE | 2024-03-23 13:23 | CON.VAS ---
Addendum entered and electronically signed by Gaudencio Virgen MD 03/23/24 16:06:
Seen and examined with JAMIL Rashid. Agree with findings as noted below. Well-known to me status post multiple lower extremity revascularization procedures and then eventual staged bilateral lower extremity amputations. Presents here with what sounds
like worsened edema, TORSTEN, volume overload, elevated blood pressures. Asked to evaluate regarding right renal artery stenosis. Patient with known chronic history of left nephrectomy/absent kidney.
Labs reviewed. His GFR is 12. His creatinine is over 4.
I reviewed prior imaging from 2017 (CT angiogram) that had demonstrated atherosclerotic plaque in the aorta near the origin of the right renal artery, but the artery itself did not appear severely stenotic. I reviewed his duplex that does indeed
demonstrate likely high-grade renal artery stenosis (likely greater than 60%).
Plan/ Likely solitary right renal artery with right renal artery stenosis. Discussed with him limited indications for renal revascularization following large randomized trials from the mid 1999's. I am not sure that he meets those criteria, and in
addition I think his chronic kidney disease has been slowly deteriorating, while this is worsening acute on chronic renal failure, I do not know that his renal function is truly salvageable with a GFR of 12. I am not sure that putting him through
intervention would save his kidney function. In addition he is adamant against receiving any contrast due to prior contrast allergic reactions (he does indeed have significant reactions as I recall from prior indications as well). Therefore the
only mechanism of repair would be open surgical bypass. This however would carry significant risk. His aorta is calcified and I do not know that it would be easy to perform, and in addition it would be redo surgery given that he has had surgery in
his retroperitoneum prior. 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 Therefore I think he is a very very high risk. I do not think the benefit here outweighs any risk. We could get an MRA of the abdomen to assess
his right renal artery for sure. However, with creatinine that elevated, this may be prohibited due to concerns over NSF. Will check with radiology to see if this can be done.
Original Note:
Consultation
Consultation Request
Date/Time Consultation Performed: 03/23/24 1330
Requesting Provider: Hospitalist
Performing Provider: Leeanna Rashid, PHOTO SPECIALIST-C for Gaudencio Viregn MD
Reason for Consultation: Right renal artery stenosis
Medical History
-
Chief Complaint: Right renal artery stenosis
History of Present Illness:
This is an 78 year old male patient known well to our service (see past surgical history below) who has a significant past medical history for CAD, HTN, HLD, PAD, renal and prostate cancer, CKD IV, and glaucoma who presented to [facility] on
03/13/24 reporting penile ad RUE edema who was admitted for TORSTEN, hydronephrosis, and volume overload. As part of workup a renal artery ultrasound was preformed resulting with renal artery stenosis prompting vascular consultation. Over all patient
states he is much improved since admission, with near resolution of penile and RUE swelling. He is tolerating PO diet.
Vascular Surgery Past History:
04/14/18: Left femoral endarterectomy with extensive profundoplasty and bovine pericardial patch angioplasty (14 cm patch angioplasty). Left iliofemoral angiogram and attempted recanalization of occluded left iliac artery system. Right iliofemoral
angiography with self-expanding stent placement, 7 mm x 80 mm right external iliac and common iliac artery with Zilver PTX stent. Right common femoral and profunda femoris endarterectomies with bovine pericardial patch angioplasty. Kuoto-bu-gwcw
femoral-femoral artery bypass with 8 mm fusion via line ringed graft. Left lower extremity arteriogram. Exploration of left greater saphenous vein. Left mdoioxx-le-lbjhcuypf tibial artery bypass with 6 mm ringed PROPATEN graft with Sarwat vein
patch. Gaudencio Virgen MD
09/10/18:Left brachial artery cannulation. Aortogram and pelvic angiogram. Bilateral femoral angiogram. Placement of primary stent using 6 x 40 Zilver PTX right external iliac artery. Right external iliac artery into common femoral artery. Gaudencio Virgen
05/10/20: Right dckbv-geu-ddfa amputation. Gaudencio Virgen MD
10/11/20: Left lzlhj-rlr-uxyw amputation. Gaudencio Virgen MD
Past Medical History
Past Medical History: CAD, Cancer and Other (Peripheral arterial disease, anemia, CKD IV, GI bleed, glaucoma, carotid artery stenosis )
Past Surgical History: Urological (Nephrectomy) and Other (See HPI for vascular surgery history)
Social History
Tobacco: Non-Smoker
Alcohol: None
Drug: None
Allergies / Home Medications
Allergy/AdvReac Type Severity Reaction Status Date / Time
Hydantoins Allergy Severe Rash Verified 03/12/24 22:09
penicillin G Allergy Severe liver Verified 03/12/24 22:09
damage,
red hands
and feet
Penicillins Allergy Severe liver Verified 03/12/24 22:09
damage,
red hands
and feet
phenytoin Allergy Severe Rash Verified 03/12/24 22:09
ciprofloxacin Allergy Intermediate Itching Verified 03/12/24 22:09
Iodinated Contrast Media Allergy Intermediate chills;trem Verified 03/12/24 22:09
[Iodinated Contrast- Oral ors
and IV Dye]
tetanus and diphtheria Allergy Intermediate Swelling, Verified 03/12/24 22:09
toxoids Pain at
site
�Medication �Instructions �Recorded �Confirmed �Type
aspirin 81 mg tablet,delayed 81 mg PO DAILY 10/21/20 03/13/24 Rx
release
brimonidine 0.2 % eye drops 0 drp ophthalmic (eye) BID 10/21/20 03/13/24 Rx
dorzolamide 2 % eye drops 0 drp ophthalmic (eye) BID 10/21/20 03/13/24 Rx
latanoprost 0.005 % eye drops 0 drp ophthalmic (eye) HS 10/21/20 03/13/24 Rx
rosuvastatin 10 mg tablet 10 mg PO DAILY 10/21/20 03/13/24 Rx
tamsulosin 0.4 mg capsule 0.4 mg PO HS 10/21/20 03/13/24 Rx
nifedipine 30 mg tablet,extended 30 mg PO DAILY #90 tabs 10/23/20 03/13/24 Rx
release
nifedipine 30 mg tablet,extended 60 mg (2 x 30 mg) PO HS #90 tabs 10/23/20 03/13/24 Rx
release
metoprolol tartrate PO BID 03/13/24 History
Review of Systems
-
History Source: Patient
Constitutional: Reports No Symptoms
EENT: Reports No Symptoms
Respiratory: Reports No Symptoms
Cardiac: Reports No Symptoms
Abdomen/GI: Reports Other (Decreased appetite)
: Reports Other (penile swelling upon admission, reports improvement )
Musculoskeletal: Reports Edema (RUE edema upon presentation reports markedly improved since admission )
Skin: Reports No Symptoms
Neurological: Reports No Symptoms
Endocrine: Reports No Symptoms
Physical Exam
Vital Signs
Temp Pulse Resp BP Pulse Ox
98.2 F 63 18 154/86 100
03/23/24 12:04 03/23/24 12:01 03/23/24 12:04 03/23/24 12:01 03/23/24 12:04
Lab Results
03/23/24 04:09
03/23/24 04:09
Troponin I 0.027 ng/ml 03/13/24 16:17
Sdj-M-Tyxqqblyihs Pept 1060 pg/ml 03/15/24 03:12
Physical Exam
General: Comfortable
HEENT: Normocephalic, Anicteric and Atraumatic
Respiratory: Non Labored Respirations
Cardiac: Negative JVD
GI: Soft, Non Tender and Non Distended
Musculoskeletal: Other (Bilateral radial pulse +2)
Skin: Warm
Neuro: AO x 3
Assessment / Plan
-
Assessment: 78-year-old male significant history of arterial disease, currently admitted for TORSTEN, pericardial effusion, pleural effusion and with ultrasound evidence of right renal artery stenosis
Plan:
Creatinine has seemed to plateau at roughly 4.6-4.9, unclear if proceeding with an intervention would benefit patient given risk (advance comorbidities, advanced age, and anaphylactic response to IV contrast)
Would prefer advanced imaging however cannot give patient contrast dye, will reach out to MRI department to see if he is eligible to undergo MRI of abdomen given elevated creatinine
I performed this shared service with the attending. I evaluated the patient [id number] and have entered clinical documentation as shown in the encounter note. I performed the following component(s): history and physical exam. Note that medical
decision making is not final until attested by vascular attending.
--- NOTE | 2024-03-23 13:45 | W.PN.HOSP.TC ---
Addendum entered and electronically signed by Lana Madrid MD 03/23/24 15:09:
I personally performed a history and physical exam of the patient and discussed management with the resident. I reviewed the resident's note and agree with the documented findings and plan of care HPI/CC except changes in my documentation.
78-year-old male presented with right approximately edema and penile edema
Cardiovascular system S1-S2 appreciated
Chest clear to auscultation
Abdomen soft and nontender
Could not see any skin breaks in the sacral area
# Anasarca with right upper extremity edema and penile edema
Volume overload on admission with pericardial effusion and TORSTEN with nephrotic Syndrome
# Acute kidney injury CKD stage IV
Unilateral kidney-right
History of nephrectomy on the left for malignancy
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
Nephrotic range of proteinuria
Lasix scan with relatively prompt perfusion/uptake of the right kidney
No evidence of UPJ obstruction-urology has evaluated
Serologies pending
Renal duplex done today-greater than 60% stenosis of the renal artery by velocity criteria-vascular evaluation
May need renal biopsy-patient hesitant and agree may be risky with solitary kidney
May need dialysis soon (Renal to decide)
Bence-Ritter protein in urine
SPEP pending
# Pericardial effusion
Pericardial effusion drained-drain removed
Repeat echo with decrease in the effusion
# Pleural effusion-moderate right and small left-not hypoxic
# Hyponatremia-likely secondary to volume overload
# History of prostate cancer with radiation-continue Flomax
# Coronary artery disease history of stent-continue aspirin/statin/beta-mayank/nifedipine
# Mild to moderate mitral regurgitation
# Hypertension-continue nifedipine 60 mg at bedtime and Coreg 6.25 twice daily
# Hyperlipidemia-continue statin
# Anemia-likely secondary to any disease
# Stage I coccygeal pressure injury-wound care assessed
# Peripheral artery disease with bilateral AKA 2019 and 2020 and Fem-Fem- form bypass in 2018
# Glaucoma-continue eyedrops
# History of GI bleed
# Hypoalbuminemia
# Diverticulosis
# DVT prophylaxis-continue subcutaneous heparin
# CODE STATUS-full code
D/W RN
D/W Renal
Discussed with patient's niece in detail and explained. All questions answered.
Original Note:
Today's Communication/Plan
-
Continue to hold Lasix
Vascular recommendations pending
Serologies pending
Assessment / Plan
Assessment / Plan
pt is an 78 year old male
Right Upper Extremity Edema--Likely due to volume overload, less likely DVT and US negative--Elevate right arm above level of heart--stop diuresis per nephro
Volume Overload-- Pt presents with penile swelling and RUE edema--BNP 1060-- Today 4.6 - Volume overload cardio vs renal -- Pericardial drain removed -- repeat echo shows 2.3 pericardial effusion without evidence of hemodynamic compromise--Lasix
scan shows relatively prompt perfusion/uptake of the right kidney and subjectively perhaps slightly delayed excretion from the right kidney -- No overt scintigraphic evidence for UPJ obstruction --hold lasix --pt unwilling to do biospy --
immunological work-up pending -- renal duplex showed greater than 60% stenosis of right renal artery--vascular consult pending
TORSTEN on CKD IV--unclear if cardiorenal vs renal disease progression--October 2023 creat was 2.8-- CT a/p mild right hydro nephrosis and possible cystitis (alicea cath unable to be placed due to coiling per nurse)-- Avoid nephrotoxics agents---pt with 1
kidney -- Kidney US ruled out post-obstructive renal etiologies, no hydronephrosis -- urology recommends no folly as long as pt is voiding well -- nephrotic syndrome per nephrology -- immunological serologies pending
Metabolic acidosis -- nephrology added PO bicarb for acidosis -- nephro following
Hypokalemia -- 3.3 -- nephrology replaced recommends high K diet
Hydronephrosis/Hx BPH--urology ruled out post-renal causes-- urology signed off-- Continue home Flomax
Pericardial Effusion- Mod Pericardial effusion on CT imaging --Echo done -pericardial drain placed to drain fluid- Pericardial drain removed -- repeat echo shows pericardial effusion without evidence of hemodynamic compromise--cards following
# Pleural effusion-moderate right and small left-not hypoxic
# Hyponatremia-likely secondary to volume overload
# History of prostate cancer with radiation
# Coronary artery disease history of stent-continue aspirin/statin/beta-mayank/nifedipine
# Mild to moderate mitral regurgitation
# Hypertension-current nifedipine and beta-blockers
# Hyperlipidemia-continue statin
# Anemia-likely secondary to any disease
# Stage I coccygeal pressure injury-wound care assessed
# Peripheral artery disease with bilateral AKA 2019 and 2020 and Fem-Fem- form bypass in 2018
# Glaucoma-continue eyedrops
# History of GI bleed
# Hypoalbuminemia
# Diverticulosis
# DVT prophylaxis-continue subcutaneous heparin
# CODE STATUS-full code
Anticipated Discharge: > 48 hours
Subjective/Interval History
-
Date of Service: March 23, 2024
Objective Data
-
Labs:
Laboratory Results
03/23/24
04:09
WBC 7.3
Hgb 9.1 L
Hct 25.8 L
Plt Count 256
Sodium 129 L
Potassium 3.3 L
Chloride 101
Carbon Dioxide 18 L
BUN 56 H
Creatinine 4.6 H*
Glucose 89
Calcium 7.4 L
Total Bilirubin 0.4
AST 65 H
ALT 73 H
Alkaline Phosphatase 49
Vital Signs:
Vital Signs
Temp Pulse Resp BP Pulse Ox
98.2 F 63 18 154/86 100
03/23/24 12:04 03/23/24 12:01 03/23/24 12:04 03/23/24 12:01 03/23/24 12:04
I&O
03/22/24 03/23/24 03/24/24
06:59 06:59 06:59
Intake Total 240 / 240 600 / 600 240 / 240
Output Total 375 / 375 300 / 300
Balance -135 / -135 300 / 300 240 / 240
Review of Systems
-
History Source: Patient
Constitutional: Reports No Symptoms
EENT: Reports No Symptoms Reported
Respiratory: Reports No Symptoms
Cardiac: Reports No Symptoms
Abdomen/GI: Reports No Symptoms
Genitourinary: Reports No Symptoms
Neuro: Reports No Symptoms
Physical Exam
-
General: No Apparent Distress
Respiratory: Crackles (bilateral lower lobes)
Cardiac: Regular Rhythm and S1/S2
GI: Soft, Nontender and Nondistended
Musculoskeletal: No Edema
Skin: Warm and Dry
Neuro: AO x 3
Psych: Calm
[2024-03-23] MEDS: XALATAN OPHTHALMIC SOLUTION 1 DROP OPHTH (23:12)
[2024-03-23] MEDS: PROCARDIA XL (EXTENDED RELEASE) 60 MG PO (23:12)
[2024-03-23] MEDS: FLOMAX 0.4 MG PO (23:12)
[2024-03-24 04:09] VITALS: BP 117/62
[2024-03-24 04:58] LABS: Hematocrit 25.2 % (39.0-52.0); Hemoglobin 8.7 g/dL (13.0-18.0); Mean Corp Hgb Conc. 34.5 g/dL (33.0-37.0); Mean Corpuscular Hgb 29.4 pg (27.0-31.0); Mean Corpuscular Volume 85.1 fL (80.0-94.0); Mean Platelet Volume 9.7 fL (7.4-10.4); Platelet Count 248 10^3/uL (130-400); Red Blood Cell Count 2.96 10^6/uL (4.70-6.10); Red Cell Dist. Width 13.2 % (11.5-14.5); White Blood Cell Count 6.6 10^3/uL (4.8-10.8)
[2024-03-24 05:13] LABS: ALT (SGPT) 67 U/L (0-50); AST (SGOT) 63 U/L (17-59); Albumin 3.3 g/dl (3.5-5.0); Alkaline Phosphatase 43 U/L (38-126); Blood Urea Nitrogen 54 mg/dl (9-20); Calcium 7.3 mg/dl (8.4-10.2); Carbon Dioxide 19 mmol/L (22-30); Chloride 103 mmol/L (98-107); Estimated Creatinine Clearance 3 ml/min; Glucose 93 mg/dl (70-99); Sodium 131 mmol/L (135-145); Total Bilirubin 0.4 mg/dl (0.2-1.3); eGFR 12.19
--- NOTE | 2024-03-24 06:38 | PTCARENOTE ---
Recd pt at change of shift on TELE monitor in NSR with bradycardic periods and VSS (Hr in the 50'-60's during khanh periods). Pt did have episode of increased blood pressure that came down after giving HS cardiac medication. Pt refused heparin
therapy, RN educated on purpose of medication. Pt verbalized understanding, yet declined medication. Pt denied any pain or discomfort and agreed to report any changes in comfort, pain, or concern to RN immediately. Pt transferred from bed to
wheelchair and is now reading in room with call skinner in reach.
[2024-03-24 07:12] VITALS: BP 102/52
[2024-03-24] MEDS: ASPIR LOW (ENTERIC COATED) 81 MG PO (08:49)
[2024-03-24] MEDS: COREG 6.25 MG PO ×2 (08:49→19:50)
[2024-03-24] MEDS: CRESTOR 10 MG PO (08:49)
[2024-03-24] MEDS: VITAMIN B-12 1000 MCG PO (08:49)
[2024-03-24] MEDS: SODIUM BICARBONATE 650 MG PO ×2 (08:49→19:51)
[2024-03-24] MEDS: HEPARIN SC ×3 (08:49→19:51)
[2024-03-24] MEDS: FLUSH (NSS) 1 FLUSH IV (08:50)
[2024-03-24] MEDS: ALPHAGAN 0.2% EYE DROPS 1 DROP OPHTH ×2 (08:51→19:51)
[2024-03-24] MEDS: TRUSOPT 2% OPHTHALMIC SOLUTION 1 DROP OPHTH ×2 (08:51→19:51)
--- NOTE | 2024-03-24 09:00 | W.PN.NEPH.PH ---
Today's Communication / Plan
-
Follow BMP
Assessment/Plan
-
Impression:
Acute kidney injury
Chronic kidney disease stage IV with baseline creatinine of 2,8
Penis and right upper extremity edema/volume overload
Hydronephrosis
Cystitis
Pericardial and pleural effusion
Coronary artery disease
Hypertension
Peripheral vascular disease
Renal cancer with history of left nephrectomy
Plan:
TORSTEN-cr slow to improve cr at 4.6, subjectively non oliguric
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
await SPEP likely need heme eval
vol status seem stable, cont to hold lasix
clinically he has nephrotic syndrome
>60% stenosis of right renal art of solitary kidney-vascular consulted
given his advanced CKD not sure if there will much of gain from intervention , risk of AURA is high and also he is allergic to contrast
I discussed case with vascular surgery. Given the fact that the procedure would be an open abdominal procedure for vascular bypass of his renal artery, I do not think the benefit outweighs the risk of such an aggressive intervention. The patient
has longstanding progressive kidney disease and I doubt an open vascular procedure would prove successful especially in the setting of his vast comorbidities which includes previous abdominal surgeries, CAD, and extensive peripheral vascular disease
burden
He understands that he will likely need HD in near future and aware AVF creation could be a challenge with wide spread PAD
met acidosis-cont po bicarb
BP mildly labile on meds
follow hyponatremia, will likely need diuretics resumed soon
no emergent HD needs
d/w pt in detail
-
-
Date of Service: March 24, 2024
CC / HPI / ROS
-
Chief Complaint:
TORSTEN
History of Present Illness:
TORSTEN/Cr slightly better at 4.6
Na low no change at 131
s/p pericardiocentesis 03/15, echo on 03/19 mod effusion
BP stable
K low 4
LFTs slightly up today
Review of Systems:
subjectively Nonoliguric
No chest pain or shortness of breath
appetite is improving
Labs
-
Labs:
WBC 6.6 10^3/uL (4.8-10.8) 03/24/24 04:14
RBC 2.96 10^6/uL (4.70-6.10) L 03/24/24 04:14
Hgb 8.7 g/dL (13.0-18.0) L 03/24/24 04:14
Hct 25.2 % (39.0-52.0) L 03/24/24 04:14
Plt Count 248 10^3/uL (130-400) 03/24/24 04:14
Sodium 131 mmol/L (135-145) L 03/24/24 04:14
Potassium 4.0 mmol/L (3.5-5.1) 03/24/24 04:14
Chloride 103 mmol/L (98-107) 03/24/24 04:14
Carbon Dioxide 19 mmol/L (22-30) L 03/24/24 04:14
BUN 54 mg/dl (9-20) H 03/24/24 04:14
Creatinine 4.6 mg/dL (0.7-1.3) H* 03/24/24 04:14
eGFR 12.19 03/24/24 04:14
Glucose 93 mg/dl (70-99) 03/24/24 04:14
Calcium 7.3 mg/dl (8.4-10.2) L 03/24/24 04:14
Nui-B-Fbqzomlgovx Pept 1060 pg/ml 03/15/24 03:12
Albumin 3.3 g/dl (3.5-5.0) L 03/24/24 04:14
Physical Exam
-
Vital Signs:
Vital Signs
Temp Pulse Resp BP Pulse Ox
98.1 F 61 18 102/52 100
03/24/24 07:13 03/24/24 07:12 03/24/24 07:13 03/24/24 07:12 03/24/24 07:13
Cardiovascular:: Regular rate and rhythm
Respiratory:: Bilateral: CTA
Lung Excursion:: Normal
Abdomen:: Nontender and Soft
Stevenson Catheter: No
Other Findings::
bilat AKA
--- NOTE | 2024-03-24 09:47 | PTCARENOTE ---
Received patient this morning resting in bed, offers no complaints. Inquiring if he is able to eat this morning, concerned about MRA of abdomen, informed that testing is still under discussion with his physicians. Assisted the patient oob to his
wheel chair, call skinner in reach.
--- NOTE | 2024-03-24 10:56 | W.PN.UPDATE ---
Update Note
Progress Note Update
Discussed with nephrology, and discussed with patient. Given advanced chronic kidney disease, I feel the risks of any revascularization (open surgical as the patient insists on no endovascular therapy with contrast) outweighs any benefit here as I
do not think the kidney is salvageable with his advanced renal dysfunction. Nephrology is in agreement. Discussed with patient who understands and is in agreement as well.
[2024-03-24 11:27] VITALS: BP 108/55
--- NOTE | 2024-03-24 15:48 | W.PN.HOSP.TC ---
Addendum entered and electronically signed by Lana Madrid MD 03/24/24 17:49:
I personally performed a history and physical exam of the patient and discussed management with the resident. I reviewed the resident's note and agree with the documented findings and plan of care HPI/CC.
CVS: S1-S2 normal
Chest: decreased B/L
Abdomen: Soft, NT
No surgical intervention for the renal artery as the risks outweigh benefits
He has another process such as nephrotic syndrome causing his TORSTEN
Discussed with vascular they will see him as an outpatient for dialysis access placement.
Discussed nephrology
I have called chemistry lab to see if the results of SPEP are back. They will call the send out lab and get back to me.
Even though he given permission to speak with family yesterday patient told me not to call his family again as he wants to update them himself
D/W RN
Original Note:
Today's Communication/Plan
-
Serologies pending
follow BMP
Vascular believes risks of revascularizations are greater then the benefit. Nephrology in agreement. Plans for dialysis are being discussed with the patient. Patient hopeful about dialysis
Assessment / Plan
Assessment / Plan
pt is an 78 year old male
Right Upper Extremity Edema--Likely due to volume overload, less likely DVT and US negative--Elevate right arm above level of heart--stop diuresis per nephro
Volume Overload-- Pt presents with penile swelling and RUE edema--BNP 1060-- Today 4.6 - Volume overload cardio vs renal -- Pericardial drain removed -- repeat echo shows 2.3 pericardial effusion without evidence of hemodynamic compromise--Lasix
scan shows relatively prompt perfusion/uptake of the right kidney and subjectively perhaps slightly delayed excretion from the right kidney -- No overt scintigraphic evidence for UPJ obstruction --hold lasix --pt unwilling to do biospy --
immunological work-up pending -- renal duplex showed greater than 60% stenosis of right renal artery--vascular consult pending--Vascular discussed options with patient and they are leaning towards dialysis as the risks of revascularization outweighs
any benefit. Nephrology is in agreement. Patient is hopeful for dialysis. Plans for dialysis are being discussed.
TORSTEN on CKD IV--unclear if cardiorenal vs renal disease progression--October 2023 creat was 2.8-- CT a/p mild right hydro nephrosis and possible cystitis (alicea cath unable to be placed due to coiling per nurse)-- Avoid nephrotoxics agents---pt with 1
kidney -- Kidney US ruled out post-obstructive renal etiologies, no hydronephrosis -- urology recommends no folly as long as pt is voiding well -- nephrotic syndrome per nephrology -- immunological serologies pending-- plans for dialysis are being
discussed
Metabolic acidosis -- nephrology added PO bicarb for acidosis -- continue PO bicarb
Hypokalemia --resolved
Hydronephrosis/Hx BPH--urology ruled out post-renal causes-- urology signed off-- Continue home Flomax
Pericardial Effusion- Mod Pericardial effusion on CT imaging --Echo done -pericardial drain placed to drain fluid- Pericardial drain removed -- repeat echo shows pericardial effusion without evidence of hemodynamic compromise--cards following
# Pleural effusion-moderate right and small left-not hypoxic
# Hyponatremia-likely secondary to volume overload
# History of prostate cancer with radiation
# Coronary artery disease history of stent-continue aspirin/statin/beta-mayank/nifedipine
# Mild to moderate mitral regurgitation
# Hypertension-current nifedipine and beta-blockers
# Hyperlipidemia-continue statin
# Anemia-likely secondary to any disease
# Stage I coccygeal pressure injury-wound care assessed
# Peripheral artery disease with bilateral AKA 2019 and 2020 and Fem-Fem- form bypass in 2018
# Glaucoma-continue eyedrops
# History of GI bleed
# Hypoalbuminemia
# Diverticulosis
# DVT prophylaxis-continue subcutaneous heparin
# CODE STATUS-full code
Anticipated Discharge: > 48 hours
Subjective/Interval History
-
Date of Service: March 24, 2024
Objective Data
-
Labs:
Laboratory Results
03/24/24
04:14
WBC 6.6
Hgb 8.7 L
Hct 25.2 L
Plt Count 248
Sodium 131 L
Potassium 4.0
Chloride 103
Carbon Dioxide 19 L
BUN 54 H
Creatinine 4.6 H*
Glucose 93
Calcium 7.3 L
Total Bilirubin 0.4
AST 63 H
ALT 67 H
Alkaline Phosphatase 43
Vital Signs:
Vital Signs
Temp Pulse Resp BP Pulse Ox
98.5 F 54 16 108/55 100
03/24/24 11:24 03/24/24 12:00 03/24/24 11:24 03/24/24 11:27 03/24/24 11:24
I&O
03/23/24 03/24/24 03/25/24
06:59 06:59 06:59
Intake Total 600 / 600 720 / 720 240 / 240
Output Total 300 / 300 425 / 425
Balance 300 / 300 295 / 295 240 / 240
Review of Systems
-
History Source: Patient
Constitutional: Reports No Symptoms
Respiratory: Reports No Symptoms
Cardiac: Reports No Symptoms
Abdomen/GI: Reports No Symptoms
Genitourinary: Reports No Symptoms
Neuro: Reports No Symptoms
Physical Exam
-
General: Well Developed and No Apparent Distress
Respiratory: Crackles
Cardiac: Regular Rhythm and S1/S2
GI: Soft, Nontender and Nondistended
Musculoskeletal: No Edema
Skin: Warm and Dry
Neuro: AO x 3
Psych: Calm
[2024-03-24 16:20] VITALS: BP 150/73
--- NOTE | 2024-03-24 16:20 | CM ---
Reviewed chart. Met with Mr. Boogie to review discharge plans. He states he is feeling okay. He states his plan is still to return home. Prior to admission he resides alone in a two story home with a ramp. He has a first floor set-up. Family
members come to assist him. He only has to go up to the second floor for showering. He has a stair glide to get to the second floor. Prior to admission he was able to transfer from the wheelchair to the bed. He has a electric wheelchair, manual
wheelchair and stair glide. Will need to see his current functional level to see if he will have any skilled are needs. Medical work-up in progress. The discharge plan is to return home with family support when medically stable
[2024-03-24 19:04] VITALS: BP 177/75
[2024-03-24 22:14] LABS: Albumin 2.83 g/dL (3.75-5.01); Alpha 2 Globulin 0.66 g/dL (0.48-1.05); Monoclonal Protein 0.35 g/dL (<=0.00); SPEP IFE Reflex IFE Done; Total Protein-Electrophoresis 5.4 g/dL (6.3-8.2)
[2024-03-24 22:15] LABS: IgA 98 mg/dL (68-408); IgG 1081 mg/dL (768-1632); IgM 55 mg/dL (35-263)
[2024-03-24 22:32] VITALS: BP 149/77
[2024-03-24] MEDS: PROCARDIA XL (EXTENDED RELEASE) 60 MG PO (22:35)
[2024-03-24] MEDS: FLOMAX 0.4 MG PO (22:35)
[2024-03-24] MEDS: XALATAN OPHTHALMIC SOLUTION 1 DROP OPHTH (22:35)
[2024-03-25] VITALS (7 sets, daily range): BP systolic 113–179; BP diastolic 58–86
--- NOTE | 2024-03-25 02:22 | PTCARENOTE ---
Pt AAOX3 and denies any pain or discomfort. Tele monitor shows Alexandru-SR w/ occasional PVCs. HR in the 50-60's at rest. Pt aware of POC. Call skinner within reach.
[2024-03-25 03:38] LABS: Hematocrit 24.1 % (39.0-52.0); Hemoglobin 8.5 g/dL (13.0-18.0); Mean Corp Hgb Conc. 35.3 g/dL (33.0-37.0); Mean Corpuscular Hgb 28.9 pg (27.0-31.0); Platelet Count 275 10^3/uL (130-400); Red Blood Cell Count 2.94 10^6/uL (4.70-6.10); Red Cell Dist. Width 13.6 % (11.5-14.5)
[2024-03-25 04:02] LABS: Blood Urea Nitrogen 55 mg/dl (9-20); Calcium 7.2 mg/dl (8.4-10.2); Carbon Dioxide 18 mmol/L (22-30); Chloride 103 mmol/L (98-107); Estimated Creatinine Clearance 3 ml/min; Glucose 89 mg/dl (70-99); Potassium 3.9 mmol/L (3.5-5.1); Sodium 132 mmol/L (135-145); eGFR 12.86
--- NOTE | 2024-03-25 07:04 | W.PN.UPDATE ---
Update Note
Progress Note Update
Outpatient appointment for fistula evaluation/discussion scheduled. Will sign off. Please call with questions.
--- NOTE | 2024-03-25 07:05 | W.PN.HOSP.TC ---
Addendum entered and electronically signed by Lana Madrid MD 03/25/24 14:13:
I personally performed a history and physical exam of the patient and discussed management with the resident. I reviewed the resident's note and agree with the documented findings and plan of care HPI/CC except for changes in documentation
Mild itching inguinal area
CVS: S1-S2 normal
Chest: decreased breath sounds bases.
Inguinal no redness or rash
Abdomen: Soft, NT / Bowel sounds present
# Anasarca with right upper extremity edema and penile edema
Volume overload on admission with pericardial effusion and TORSTEN with nephrotic Syndrome
weight better
# Acute kidney injury CKD stage IV
Unilateral kidney-right
History of nephrectomy on the left for malignancy
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
Nephrotic range of proteinuria
Lasix scan with relatively prompt perfusion/uptake of the right kidney
No evidence of UPJ obstruction-urology has evaluated
Renal duplex done today-greater than 60% stenosis of the renal artery by velocity criteria-vascular evaluation noted, no inpatient intervention. Op HD access
May need renal biopsy-patient hesitant and agree may be risky with solitary kidney
May need dialysis soon (Renal to decide)
Bence-Ritter protein in urine
SPEP monoclonal spike
Heme consulted and recommending BM biopsy as OP
OP BM Biopsy recommended
# Pericardial effusion
Pericardial effusion drained-drain removed
Repeat echo with decrease in the effusion
# Pleural effusion-moderate right and small left-not hypoxic
# Hyponatremia-likely secondary to volume overload
# History of prostate cancer with radiation-continue Flomax
# Coronary artery disease history of stent-continue aspirin/statin/beta-mayank/nifedipine
# Mild to moderate mitral regurgitation
# Hypertension-continue nifedipine 60 mg at bedtime and Coreg 6.25 twice daily
# Hyperlipidemia-continue statin
# Anemia-likely secondary to any disease
# Stage I coccygeal pressure injury-wound care assessed
# Peripheral artery disease with bilateral AKA 2019 and 2020 and Fem-Fem- form bypass in 2018
# Glaucoma-continue eyedrops
# History of GI bleed
# Hypoalbuminemia
# Diverticulosis
# DVT prophylaxis-continue subcutaneous heparin
# CODE STATUS-full code
D/W RN
D/W Heme
D/W Renal
Possible discharge tomorrow with out diuretics per D/W renal..
Original Note:
Today's Communication/Plan
-
Plans for fistula placement for dialysis in outpatient
SPEP shows M spike, QUIN serum shows IgG type kappa monoclonal protein, nephrology appreciated
Continue p.o. bicarb
Assessment / Plan
Assessment / Plan
pt is an 78 year old male
Right Upper Extremity Edema--Likely due to volume overload, less likely DVT and US negative--Elevate right arm above level of heart--stop diuresis per nephro
Volume Overload-- Pt presents with penile swelling and RUE edema--BNP 1060-- Today 4.4 - Volume overload cardio vs renal -- Pericardial drain removed -- repeat echo shows 2.3 pericardial effusion without evidence of hemodynamic compromise--Lasix
scan shows relatively prompt perfusion/uptake of the right kidney and subjectively perhaps slightly delayed excretion from the right kidney -- No overt scintigraphic evidence for UPJ obstruction --hold lasix --pt unwilling to do biospy --
immunological work-up pending -- renal duplex showed greater than 60% stenosis of right renal artery--Vascular discussed options with patient and they are leaning towards dialysis as the risks of revascularization outweighs any benefit. Nephrology
is in agreement -- AV fistula US showed no significant stenosis -- plans discussed for outpatient f/u for fistula placement -- SPEP shows M spike -- QUIN shows IgG type [place] Monoclonal protein -- nephro appreciated
TORSTEN on CKD IV--unclear if cardiorenal vs renal disease progression--October 2023 creat was 2.8-- CT a/p mild right hydro nephrosis and possible cystitis (alicea cath unable to be placed due to coiling per nurse)-- Avoid nephrotoxics agents---pt with 1
kidney -- Kidney US ruled out post-obstructive renal etiologies, no hydronephrosis -- urology recommends no folly as long as pt is voiding well -- AV fistula US no significant stenosis -- plans for outpatient fistula placement --SPEP shows M spike
-- QUIN shows IgG type [place] Monoclonal protein -- nephro appreciated
Metabolic acidosis -- nephrology added PO bicarb for acidosis -- continue PO bicarb
Hypokalemia --resolved
Hydronephrosis/Hx BPH--urology ruled out post-renal causes-- urology signed off-- Continue home Flomax
Pericardial Effusion- Mod Pericardial effusion on CT imaging --Echo done -pericardial drain placed to drain fluid- Pericardial drain removed -- repeat echo shows pericardial effusion without evidence of hemodynamic compromise--cards following
Itchy genitals
Patient complained of itchy genitals and believes it is due to underwear. He plans to change to boxers. He did not want me to inspect.
# Pleural effusion-moderate right and small left-not hypoxic
# Hyponatremia-likely secondary to volume overload
# History of prostate cancer with radiation
# Coronary artery disease history of stent-continue aspirin/statin/beta-mayank/nifedipine
# Mild to moderate mitral regurgitation
# Hypertension-current nifedipine and beta-blockers
# Hyperlipidemia-continue statin
# Anemia-likely secondary to any disease
# Stage I coccygeal pressure injury-wound care assessed
# Peripheral artery disease with bilateral AKA 2019 and 2020 and Fem-Fem- form bypass in 2018
# Glaucoma-continue eyedrops
# History of GI bleed
# Hypoalbuminemia
# Diverticulosis
# DVT prophylaxis-continue subcutaneous heparin
# CODE STATUS-full code
Anticipated Discharge: 24 - 48 hours
Subjective/Interval History
-
Date of Service: March 25, 2024
Objective Data
-
Labs:
Laboratory Results
03/25/24
03:21
WBC 6.0
Hgb 8.5 L
Hct 24.1 L
Plt Count 275
Sodium 132 L
Potassium 3.9
Chloride 103
Carbon Dioxide 18 L
BUN 55 H
Creatinine 4.4 H*
Glucose 89
Calcium 7.2 L
Vital Signs:
Vital Signs
Temp Pulse Resp BP Pulse Ox
98.5 F 62 18 113/61 99
03/25/24 03:17 03/25/24 03:16 03/25/24 03:17 03/25/24 03:16 03/25/24 03:17
I&O
03/24/24 03/25/24 03/26/24
06:59 06:59 06:59
Intake Total 720 / 720 360 / 360
Output Total 425 / 425 250 / 250
Balance 295 / 295 110 / 110
Review of Systems
-
History Source: Patient
EENT: Reports No Symptoms Reported
Respiratory: Reports No Symptoms
Cardiac: Reports No Symptoms
Abdomen/GI: Reports No Symptoms
Genitourinary: Reports Other (Itchy genital area)
Neuro: Reports No Symptoms
Physical Exam
-
General: No Apparent Distress and Comfortable
Respiratory: Crackles
Cardiac: Regular Rhythm and S1/S2
GI: Soft, Nontender and Nondistended
Genito-urinary: Other (patient did not want me to inspect)
Musculoskeletal: No Edema
Skin: Warm and Dry
Neuro: AO x 3
Psych: Calm
[2024-03-25] MEDS: ALPHAGAN 0.2% EYE DROPS 1 DROP OPHTH ×2 (09:01→19:30)
[2024-03-25] MEDS: ASPIR LOW (ENTERIC COATED) 81 MG PO (09:02)
[2024-03-25] MEDS: VITAMIN B-12 1000 MCG PO (09:02)
[2024-03-25] MEDS: CRESTOR 10 MG PO (09:02)
[2024-03-25] MEDS: COREG 6.25 MG PO ×2 (09:02→19:28)
[2024-03-25] MEDS: TRUSOPT 2% OPHTHALMIC SOLUTION 1 DROP OPHTH ×2 (09:03→19:29)
[2024-03-25] MEDS: HEPARIN SC ×2 (09:03→19:30)
[2024-03-25] MEDS: SODIUM BICARBONATE 650 MG PO ×3 (10:00→22:01)
--- NOTE | 2024-03-25 11:04 | W.PN.NEPH.PH ---
Today's Communication / Plan
-
Placed fluid restriction of 50 ounce daily already
Escalate sodium bicarbonate to 650 mg p.o. 3 times daily for metabolic acidosis
Creatinine remained stable
Hematology consult for abnormal SPEP
Stable for discharge from renal process
Assessment/Plan
-
Impression:
Acute kidney injury
Chronic kidney disease stage IV with baseline creatinine of 2,8
Penis and right upper extremity edema/volume overload
Hydronephrosis
Cystitis
Pericardial and pleural effusion
Coronary artery disease
Hypertension
Peripheral vascular disease
Renal cancer with history of left nephrectomy
Plan:
TORSTEN-cr slow to improve cr at 4.4 subjectively non oliguric, weight stable
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
Will escalate sodium bicarbonate to 650 mg 3 times daily for metabolic acidosis
SPEP: M spike: Consult hematology IgG type kappa monoclonal proteins
volume status seem stable, continue to hold lasix
clinically he has nephrotic syndrome
>60% stenosis of right renal art of solitary kidney-vascular consulted
given his advanced CKD not sure if there will much of gain from intervention , risk of AURA is high and also he is allergic to contrast
Previously discussed case with vascular surgery. Given the fact that the procedure would be an open abdominal procedure for vascular bypass of his renal artery, I do not think the benefit outweighs the risk of such an aggressive intervention. The
patient has longstanding progressive kidney disease and I doubt an open vascular procedure would prove successful especially in the setting of his vast comorbidities which includes previous abdominal surgeries, CAD, and extensive peripheral vascular
disease burden
He understands that he will likely need HD in near future and aware AVF creation could be a challenge with wide spread PAD
met acidosis-cont po bicarb
BP stable
follow hyponatremia, will likely need diuretics resumed soon
no emergent HD needs
d/w pt in detail
-
-
Date of Service: March 25, 2024
CC / HPI / ROS
-
Chief Complaint:
TORSTEN
History of Present Illness:
TORSTEN/Cr slightly better at 4.6
Na low no change at 132
s/p pericardiocentesis 03/15, echo on 03/19 mod effusion
BP stable
K low 4
Remains profoundly anemia at 7 point
Review of Systems:
subjectively Nonoliguric
No chest pain or shortness of breath
appetite is improving
Weight stable
Labs
-
Labs:
WBC 6.0 10^3/uL (4.8-10.8) 03/25/24 03:21
RBC 2.94 10^6/uL (4.70-6.10) L 03/25/24 03:21
Hgb 8.5 g/dL (13.0-18.0) L 03/25/24 03:21
Hct 24.1 % (39.0-52.0) L 03/25/24 03:21
Plt Count 275 10^3/uL (130-400) 03/25/24 03:21
Sodium 132 mmol/L (135-145) L 03/25/24 03:21
Potassium 3.9 mmol/L (3.5-5.1) 03/25/24 03:21
Chloride 103 mmol/L (98-107) 03/25/24 03:21
Carbon Dioxide 18 mmol/L (22-30) L 03/25/24 03:21
BUN 55 mg/dl (9-20) H 03/25/24 03:21
Creatinine 4.4 mg/dL (0.7-1.3) H* 03/25/24 03:21
eGFR 12.86 03/25/24 03:21
Glucose 89 mg/dl (70-99) 03/25/24 03:21
Calcium 7.2 mg/dl (8.4-10.2) L 03/25/24 03:21
Zzn-P-Fomfkvisywe Pept 1060 pg/ml 03/15/24 03:12
Albumin 3.3 g/dl (3.5-5.0) L 03/24/24 04:14
Physical Exam
-
Vital Signs:
Vital Signs
Temp Pulse Resp BP Pulse Ox
98.2 F 60 20 121/58 100
03/25/24 10:57 03/25/24 07:10 03/25/24 10:57 03/25/24 07:10 03/25/24 10:57
Cardiovascular:: Regular rate and rhythm
Respiratory:: Bilateral: CTA
Lung Excursion:: Normal
Abdomen:: Nontender and Soft
Extremity Edema:: None: Bilateral: (bilateral AKA)
Stevenson Catheter: No
Other Findings::
bilat AKA
--- NOTE | 2024-03-25 11:20 | CON.ONC ---
Impression
Impression
IgG kappa monoclonal antibody
TORSTEN/CKI multiple etiologies including renal artery stenosis 60% on solitary kidney
Nephrotic syndrome
Diffuse edema
Severe vascular disease with bilateral AKA
CAD
History of renal cell carcinoma status post left nephrectomy
Plan
Plan
[place] lambda light chains
M protein quantification- likely to be quite low given total IgG
Bone marrow biopsy OP
CRAB difficult to assign to myeloma given concomitant medical issues
Medically maximized and proceed with outpatient workup
Patient History
History of Present Illness
Patient is an 78 year old male patient with a a significant past medical history for CAD, HTN, HLD, PAD, renal and prostate cancer, CKD IV, and glaucoma who presented to [facility] on 03/13/24 reporting penile ad RUE edema who was admitted for TORSTEN,
hydronephrosis, and volume overload. Evaluation reveals evidence of an M protein. A renal artery ultrasound was preformed resulting with renal artery stenosis. Over all patient states he is much improved since admission, with near resolution of
penile and RUE swelling. He is tolerating PO diet.
Past-Medical/Surgical History
Past Medical History
CAD, Cancer and Other (Peripheral arterial disease, anemia, CKD IV, GI bleed, glaucoma, carotid artery stenosis, previous diagnosis of retroperitoneal fibrosis)
Past Surgical History Urological (Nephrectomy) and extensive vascular surgery ultimately bilateral AKA
Social History
Tobacco: Non-Smoker
Alcohol: None
Drug: None
Patient Medication
�Medication �Instructions �Recorded �Confirmed �Last Taken �Type
aspirin 81 mg tablet,delayed 81 mg PO DAILY 10/21/20 03/13/24 03/12/24 Rx
release
brimonidine 0.2 % eye drops 0 drp ophthalmic (eye) BID 10/21/20 03/13/24 03/12/24 Rx
dorzolamide 2 % eye drops 0 drp ophthalmic (eye) BID 10/21/20 03/13/24 03/12/24 Rx
latanoprost 0.005 % eye drops 0 drp ophthalmic (eye) HS 10/21/20 03/13/24 03/12/24 Rx
rosuvastatin 10 mg tablet 10 mg PO DAILY 10/21/20 03/13/24 03/12/24 Rx
tamsulosin 0.4 mg capsule 0.4 mg PO HS 10/21/20 03/13/24 03/12/24 Rx
nifedipine 30 mg tablet,extended 30 mg PO DAILY #90 tabs 10/23/20 03/13/24 03/12/24 Rx
release
nifedipine 30 mg tablet,extended 60 mg (2 x 30 mg) PO HS #90 tabs 10/23/20 03/13/24 03/12/24 Rx
release
metoprolol tartrate PO BID 03/13/24 Unknown History
Active Medications
Generic Name Dose Route Start Last Admin
Trade Name Freq PRN Reason Stop Dose Admin
Acetaminophen 650 mg 03/13/24 05:28
Acetaminophen 325 Mg Tablet PO 04/10/24 05:27
Q4HPRN PRN
mild pain/DIAZ/temp> 100.4F
Aspirin 81 mg 03/13/24 08:00 03/25/24 09:02
Aspirin 81 Mg (Enteric Coated) Tablet PO 04/10/24 07:59 81 mg
DAILY GAVI Administration
Bisacodyl 10 mg 03/13/24 05:28
Bisacodyl 10 Mg Rectal Suppository RECTAL 04/10/24 05:27
[id number] PRN
constipation
Brimonidine Tartrate 1 drop 03/13/24 08:00 03/25/24 09:01
Brimonidine 0.2% (Ophthalmic Solution) Bottle OPHTH 04/10/24 07:59 1 drop
BID GAVI Administration
Carvedilol 6.25 mg 03/13/24 20:00 03/25/24 09:02
Carvedilol 6.25 Mg Tablet PO 04/10/24 19:59 6.25 mg
BID GAVI Administration
Cyanocobalamin 1,000 mcg 03/23/24 11:00 03/25/24 09:02
Cyanocobalamin 1,000 Mcg Tablet PO 04/20/24 10:59 1,000 mcg
DAILY GAVI Administration
Dorzolamide HCl 1 drop 03/13/24 08:00 03/25/24 09:03
Dorzolamide 2% (Ophthalmic Solution) 10 Ml Bottle OPH 04/10/24 07:59 1 drop
BID GAVI Administration
Heparin Sodium 5,000 units 03/13/24 08:00 03/25/24 09:03
Heparin 5,000 Units/Ml 1 Ml Vial SC 04/10/24 07:59 Not Given
Q12 GAVI
Latanoprost 1 drop 03/13/24 22:00 03/24/24 22:35
Latanoprost 0.005% (Ophthalmic Solution) 2.5 Ml Bottle [facility] 04/10/24 21:59 1 drop
HS GAVI Administration
Nifedipine 60 mg 03/13/24 22:00 03/24/24 22:35
Nifedipine 60 Mg Extended Release Tablet PO 04/10/24 21:59 60 mg
HS GAVI Administration
Polyethylene Glycol 17 grams 03/13/24 05:28
Polyethylene Glycol Powder 17 Grams Packet PO 04/10/24 05:27
DAILYPRN PRN
constipation
Prochlorperazine Edisylate 5 mg 03/16/24 01:39
Prochlorperazine 10 Mg/2 Ml Vial IV 04/13/24 01:38
Q6HPRN PRN
n/v
Rosuvastatin Calcium 10 mg 03/13/24 08:00 03/25/24 09:02
Rosuvastatin (Crestor) 10 Mg Tablet PO 04/10/24 07:59 10 mg
DAILY GAVI Administration
Senna/Docusate Sodium 1 tablet 03/13/24 05:28
Docusate W/Senna (Geri-Colace) Tablet PO 04/10/24 05:27
BIDPRN PRN
constipation
Sodium Bicarbonate 650 mg 03/25/24 16:00
Sodium Bicarbonate 650 Mg Tablet PO 04/22/24 15:59
TID GAVI
Sodium Chloride 0 flush 03/13/24 05:00 03/24/24 08:50
Sodium Chloride 0.9% (Flush) Syringe IV 04/10/24 04:59 1 flush
PER PROTOCOL GAVI Administration
Tamsulosin HCl 0.4 mg 03/13/24 22:00 03/24/24 22:35
Tamsulosin 0.4 Mg Capsule PO 04/10/24 21:59 0.4 mg
HS GAVI Administration
Review of Systems
-
12 point review of systems fails elicit additional complaints other than those reviewed in HPI
Physical Exam
-
Physical Exam
-
General: No Apparent Distress
Respiratory: Crackles (bilateral lower lobes)
Cardiac: Regular Rhythm and S1/S2
GI: Soft, Nontender and Nondistended
Musculoskeletal: No Edema
Skin: Warm and Dry
Neuro: AO x 3
Psych: Calm
Bilateral AKA
Labs
Lab Results
WBC 6.0 10^3/uL (4.8-10.8) 03/25/24 03:21
RBC 2.94 10^6/uL (4.70-6.10) L 03/25/24 03:21
Hgb 8.5 g/dL (13.0-18.0) L 03/25/24 03:21
Hct 24.1 % (39.0-52.0) L 03/25/24 03:21
MCV 82.0 fL (80.0-94.0) 03/25/24 03:21
MCH 28.9 pg (27.0-31.0) 03/25/24 03:21
MCHC 35.3 g/dL (33.0-37.0) 03/25/24 03:21
RDW 13.6 % (11.5-14.5) 03/25/24 03:21
Plt Count 275 10^3/uL (130-400) 03/25/24 03:21
MPV 10.0 fL (7.4-10.4) 03/25/24 03:21
Abs Immat Gran (auto) 0.0 10^3/uL (0-0.05) 03/13/24 06:14
Absolute Neuts (auto) 3.7 10^3/uL (1.4-6.5) 03/13/24 06:14
Absolute Lymphs (auto) 0.8 10^3/uL (1.2-3.4) L 03/13/24 06:14
Absolute Monos (auto) 0.7 10^3/uL (0.1-0.6) H 03/13/24 06:14
Absolute Eos (auto) 0.4 10^3/uL (0-0.7) 03/13/24 06:14
Absolute Basos (auto) 0.1 10^3/uL (0-0.2) 03/13/24 06:14
Immature Gran % 0.2 % (0-0.5) 03/13/24 06:14
Neutrophils % 66.9 % (42.2-75.2) 03/13/24 06:14
Lymphocytes % 13.8 % (20.5-51.1) L 03/13/24 06:14
Monocytes % 11.8 % (1.7-9.3) H 03/13/24 06:14
Eosinophils % 6.4 % (0-6) H 03/13/24 06:14
Basophils % 0.9 % (0-2) 03/13/24 06:14
Creatinine 4.4 mg/dL (0.7-1.3) H* 03/25/24 03:21
Vital Signs
Vital Signs
Temp Pulse Resp BP Pulse Ox
98.2 F 60 20 121/58 100
03/25/24 10:57 03/25/24 07:10 03/25/24 10:57 03/25/24 07:10 03/25/24 10:57
--- NOTE | 2024-03-25 14:59 | CM ---
Reviewed chart. Met with Mr. Boogie to review discharge plans. Received consult for [facility]. Met with Mr. Boogie to review discharge plans. We reviewed [facility]. He currently is declining [facility]. He states he already has a
system set-up at home. He has a supportive family. His family will provide transportation home. Prior to admission he resides alone in a two story home with a ramp. He has a first floor set-up. He states he sleeps in an electric recliner. He has
a manual wheelchair, electric wheelchair and a stair glide. He states he can transfer without assistance. Medical work-up in progress. The discharge plan is to return home with family support when medically stable.
--- NOTE | 2024-03-25 19:22 | PTCARENOTE ---
Pt OOB to his wheelchair all day. Pt denies any discomfort, he is eager to go home. Telemetry shows sinus khanh.
[2024-03-25] MEDS: PROCARDIA XL (EXTENDED RELEASE) 60 MG PO (22:01)
[2024-03-25] MEDS: FLOMAX 0.4 MG PO (22:01)
[2024-03-25] MEDS: XALATAN OPHTHALMIC SOLUTION 1 DROP OPHTH (22:02)
[2024-03-26 05:12] VITALS: BP 116/67
[2024-03-26 05:47] LABS: Hematocrit 25.5 % (39.0-52.0); Hemoglobin 8.8 g/dL (13.0-18.0); Mean Corp Hgb Conc. 34.5 g/dL (33.0-37.0); Mean Corpuscular Hgb 29.3 pg (27.0-31.0); Mean Platelet Volume 9.5 fL (7.4-10.4); Platelet Count 248 10^3/uL (130-400); Red Cell Dist. Width 13.2 % (11.5-14.5); White Blood Cell Count 6.3 10^3/uL (4.8-10.8)
[2024-03-26 06:18] LABS: Blood Urea Nitrogen 57 mg/dl (9-20); Calcium 7.2 mg/dl (8.4-10.2); Carbon Dioxide 19 mmol/L (22-30); Chloride 102 mmol/L (98-107); Estimated Creatinine Clearance 3 ml/min; Glucose 92 mg/dl (70-99); Potassium 4.1 mmol/L (3.5-5.1); Sodium 131 mmol/L (135-145); eGFR 13.22
[2024-03-26 06:57] VITALS: BP 123/66
[2024-03-26] MEDS: ASPIR LOW (ENTERIC COATED) 81 MG PO (09:14)
[2024-03-26] MEDS: CRESTOR 10 MG PO (09:15)
[2024-03-26] MEDS: ALPHAGAN 0.2% EYE DROPS 1 DROP OPHTH (09:15)
[2024-03-26] MEDS: TRUSOPT 2% OPHTHALMIC SOLUTION 1 DROP OPHTH (09:15)
[2024-03-26] MEDS: VITAMIN B-12 1000 MCG PO (09:15)
[2024-03-26] MEDS: SODIUM BICARBONATE 650 MG PO ×2 (09:15→16:22)
[2024-03-26] MEDS: COREG 6.25 MG PO (09:15)
[2024-03-26] MEDS: HEPARIN SC (09:16)
--- NOTE | 2024-03-26 09:57 | W.PN.ONC ---
Today's Communication / Plan
-
M protein quantification-350 ng/dL
[place] lambda light chain ratio pending
Bone marrow biopsy OP
CRAB difficult to assign to myeloma given concomitant medical issues
Medically maximized and proceed with outpatient workup
Monitor CBC AOCD and ACKD
Follow-up in the office
Impression
Impression
IgG kappa monoclonal antibody
TORSTEN/CKI multiple etiologies including renal artery stenosis 60% on solitary kidney
Nephrotic syndrome
Diffuse edema
Severe vascular disease with bilateral AKA
CAD
History of renal cell carcinoma status post left nephrectomy
Subjective/Objective
Subjective/Objective
Patient without new complaints. No difficulty with dyspnea. Resolution of edema.
Vital Signs:
Vital Signs
Temp Pulse Resp BP Pulse Ox
97.6 F 73 18 123/66 100
03/26/24 06:54 03/26/24 08:00 03/26/24 06:54 03/26/24 06:57 03/26/24 09:05
Physical examination:unchanged
Lab Results:
Laboratory Data
WBC 6.3 10^3/uL (4.8-10.8) 03/26/24 05:26
Hgb 8.8 g/dL (13.0-18.0) L 03/26/24 05:26
Plt Count 248 10^3/uL (130-400) 03/26/24 05:26
eGFR 13.22 03/26/24 05:26
Orders
Orders
Orders From Last 24 Hours
03/25/24 12:30
[place]/Lambda FLC Quant [S] Routine
[2024-03-26] MEDS: DESENEX/MITRAZOL/ZEASORB 1 APPLIC TOPICAL (10:30)
[2024-03-26 11:21] VITALS: BP 127/69
--- NOTE | 2024-03-26 14:02 | CM ---
Reviewed chart. Met with Mr. Boogie to review discharge plans. He states he is feeling well and maybe able to go home soon. We reviewed [facility] again and he is agreeable to [facility]. Telephone call to [facility] to
make an referral. Sent referral. Prior to admission he resides alone in a two story home with a ramp to enter. Prior to admission he was able to transfer from wheelchair to recliner. He has a manual wheelchair, Electric wheelchair and stair
glide at home. He only goes upstairs to shower. He has family support. Medical work-up in progress. The discharge plan is to return home with family support and [facility] when medically stable.
--- NOTE | 2024-03-26 14:30 | W.PN.HOSP.TC ---
Today's Communication/Plan
-
Discharge
Assessment / Plan
Assessment / Plan
I personally performed a history and physical exam of the patient and discussed management with the resident. I reviewed the resident's note and agree with the documented findings and plan of care HPI/CC except for changes in documentation
CVS: S1-S2 normal
Chest: decreased breath sounds bases.
Inguinal no redness or rash
Abdomen: Soft, NT / Bowel sounds present
# Anasarca with right upper extremity edema and penile edema
Volume overload on admission with pericardial effusion and TORSTEN with nephrotic Syndrome
weight better
# Acute kidney injury CKD stage IV
Unilateral kidney-right
History of nephrectomy on the left for malignancy
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
Nephrotic range of proteinuria
Lasix scan with relatively prompt perfusion/uptake of the right kidney
No evidence of UPJ obstruction-urology has evaluated
Renal duplex done today-greater than 60% stenosis of the renal artery by velocity criteria-vascular evaluation noted, no inpatient intervention. Op HD access
May need renal biopsy-patient declined and agree may be risky with solitary kidney
May need dialysis soon (Renal to decide)
Bence-Ritter protein in urine/SPEP monoclonal spike
Heme consulted and recommending BM biopsy as OP
OP BM Biopsy recommended
# Pericardial effusion
Pericardial effusion drained-drain removed
Repeat echo with decrease in the effusion
# Pleural effusion-moderate right and small left-not hypoxic
# Hyponatremia-likely secondary to volume overload
# History of prostate cancer with radiation-continue Flomax
# Coronary artery disease history of stent-continue aspirin/statin/beta-mayank/nifedipine
# Mild to moderate mitral regurgitation
# Hypertension-continue nifedipine 60 mg at bedtime and Coreg 6.25 twice daily
# Hyperlipidemia-continue statin
# Anemia-likely secondary to any disease
# Stage I coccygeal pressure injury-wound care assessed
# Peripheral artery disease with bilateral AKA 2019 and 2020 and Fem-Fem- form bypass in 2018
# Glaucoma-continue eyedrops
# History of GI bleed
# Hypoalbuminemia
# Diverticulosis
# DVT prophylaxis-continue subcutaneous heparin
# CODE STATUS-full code
D/W RN
D/W Case management
D/W Renal
Offered to talk to patient's niece who he considers as his daughter. Patient declined stating that she is going through a lot at this point and he does not want her to have information about him. He would rather talk to her himself. I also
offered to schedule an appointment with interventional radiology however he wanted to call with his niece as he wanted to work on her schedule.
Patient is aware about needs for further follow-up for diagnosis as well as treatment. Diet discussed
Dietary consulted
Visiting nurse arranged
Discharge coordination time more than 38 minutes
Anticipated Discharge: Today
Subjective/Interval History
-
Date of Service: March 26, 2024
Objective Data
-
Labs:
Laboratory Results
03/26/24
05:26
WBC 6.3
Hgb 8.8 L
Hct 25.5 L
Plt Count 248
Sodium 131 L
Potassium 4.1
Chloride 102
Carbon Dioxide 19 L
BUN 57 H
Creatinine 4.3 H*
Glucose 92
Calcium 7.2 L
Vital Signs:
Vital Signs
Temp Pulse Resp BP Pulse Ox
97.8 F 65 18 127/69 100
03/26/24 11:21 03/26/24 11:21 03/26/24 11:21 03/26/24 11:21 03/26/24 11:21
I&O
03/25/24 03/26/24 03/27/24
06:59 06:59 06:59
Intake Total 360 / 360 540 / 540
Output Total 250 / 250 450 / 450 50 / 50
Balance 110 / 110 90 / 90 -50 / -50
[2024-03-26 15:13] VITALS: BP 147/71
--- NOTE | 2024-03-26 16:33 | W.DCSUMMARY ---
Discharge Summary
Discharge Data
Date of Admission: 03/13/24
Date of Discharge: 03/26/24
-
Pending Results: Yes
Additional Pending Results:
Free kappa light chains, quantitative, free lambda light chains, quantitative, free kappa/lambda light chain ratio
Hospital Course
Primary diagnosis:
Anasarca with right upper extremity edema and penile edema
Acute kidney injury CKD stage IV
Pericardial effusion
Pleural effusion
Hyponatremia
History of prostate cancer with radiation
Coronary artery disease history of stent
Mild to moderate mitral regurgitation
Hypertension
Hyperlipidemia
Anemia
Stage I coccygeal pressure injury
On going work up to rule out multiple myeloma
Secondary diagnoses:
Peripheral artery disease with bilateral AKA
Glaucoma
History of GI bleed
Hypoalbuminemia
Diverticulosis
Hospital course:
Kb is an 78-year-old male with a past medical history of CAD, hypertension/hyperlipidemia, PVD, bilateral AKA, CKD, prostate cancer treated with radiation therapy, renal cancer s/p nephrectomy, glaucoma, GI bleed and retroperitoneal fibrosis
presented to the ED late evening on 03/12/2024 with right upper extremity and penile swelling. Patient stated swelling in his penis began 3 days prior and swelling in his arm began the day before. The swelling is worse in the morning and better in
the evening. Patient denied any pain, tenderness and otherwise felt okay. He only came to the ED after his grandson insisted. Patient's blood pressure was 173/87 but otherwise stable vitals. Right upper extremity ultrasound was ordered to rule
out DVT. Came back negative. CMP was ordered and was found to have acute TORSTEN with creatinine 4.1, bun 42. October 2023 creatinine was 2.8. Patient was also found to be anemic with hemoglobin 8.8. Chest x-ray revealed cardiomegaly with small right
pleural effusion and right basilar atelectasis. EKG showed a sinus rhythm with occasional PVCs. Abdominal/pelvic CT was ordered to evaluate TORSTEN as patient only had 1 kidney after prior left nephrectomy secondary to renal cancer. Abdominal/pelvic
CT revealed mild right sided hydronephrosis consistent with prior left nephrectomy, cardiomegaly with moderate pericardial effusion, mild bladder wall thickening with concern for possible cystitis, moderate right-sided pleural effusion and small
left pleural effusion with adjacent atelectasis, colonic diverticulosis. Patient was started on IV Lasix for volume overload, nephrotoxic agents avoided and patient was admitted.
Cardiology was consulted and an echo was ordered for Friday. Urology and nephrology were also consulted for TORSTEN. Cystitis was ruled unlikely as the patient was afebrile, bland UA and had no leukocytosis. Nephrology added hydralazine for blood
pressure control and Lasix for volume overload. Patient had no problem emptying with good stream so urology recommended to wait and follow creatinine to see whether he needed any intervention. Over the weekend, swelling started to decrease but
creatinine remained elevated. On 03/15/2024 an echo was done and a moderate pericardial effusion was found anterior to the right ventricle with evidence of hemodynamic compromise. EF 50 to 55%. Patient was sent to [facility]. 270 cc were drained
during the procedure. Drain was placed and additional 100 cc were drained overnight. Pericardial fluid analysis showed borderline transudative/exudative per lights criteria. Was unhelpful in determining underlying etiology of effusion and
preliminary cultures and stains came back negative for any signs of infection. Nephrology was hopeful that after procedure, creatinine went get better. As BUN was in the 40s, nephrology believed uremia was unlikely to be the cause. Lasix was held
to prevent significant decrease in preload. The next day the drain was removed and creatinine remained elevated at 4.2. Urine output remained low. A renal ultrasound was also ordered on 03/16/2024 to evaluate for postrenal obstructive causes of
elevated creatinine. There were no signs of right hydronephrosis. At this point urology signed off. On 03/17 the creatinine amie to 4.3. Urine output started to dip. Patient's sodium level dropped to 129, bicarb 18, BUN 48. Metabolic acidosis
noted. Nephrology also noted urine protein to creatinine ratio 3.5 indicating nephrotic syndrome. Nephrology ordered a Lasix renal scan for next day. Patient's blood pressure continued to be labile with normal BP in the morning and higher in the
evening. Nephrology increased nifedipine dose to lower BP. Swelling continued to decrease to the point of almost not being noticeable. On 03/18, creatinine 4.6 and sodium 127. Repeat echo was done showing reaccumulation of pericardial effusion
without hemodynamic compromise. Renal Lasix scan done revealing no overt scintigraphic evidence for UPJ obstruction. Nephrology discussed biopsy with the patient however given the risks in a patient with a solitary kidney, he decided against it.
Nephrology ordered more labs to evaluate for a vasculitis or autoimmune process. Repeat echo on 03/19 showed hemodynamic stability. Creatinine 4.7. Patient continued to be asymptomatic except for some minor decrease in appetite. Team awaited
serologies and monitored BMP. P.o. bicarb was added for his metabolic acidosis. Due to patient's past medical history of peripheral artery disease, patient became insistent on assessing renal vasculature. Renal duplex was scheduled for 03/22/2024.
Renal duplex revealed greater than 60% stenosis of right renal artery. Vascular was consulted. Vascular spoke to patient about risks of revascularization with open surgery as patient was insistent that endovascular therapy would not be possible
for him due to his allergy to contrast. They both agreed that revascularization surgery was not an option. Dialysis and fistula placement was discussed. On 03/24 serologies came back negative. UPEP positive for monoclonal protein IgG heavy chain
and kappa. SPEP pending. Creatinine 4.6. Urine output remained low. An AV fistula ultrasound was done to assess if patient would be capable of receiving fistula placement for dialysis. Patent bilateral upper extremity basilic and cephalic veins
with no evidence of superficial thrombosis or significant stenosis was found. On 03/25, vascular discussed fistula placement with patient and decision for outpatient appoint was was made. On 03/25, creatinine 4.4. SPEP came back positive for
monoclonal spike. Calcium remained consistently low during duration of hospitalization. Heme/onc was consulted. Hematology noted that patient's concomitant medical issues made it difficult to assess for myeloma and recommended follow-up in
outpatient for bone marrow biopsy. Heme-onc, nephrology, and vascular all deemed patient medically stable to follow-up in outpatient and be discharged from the hospital. On 03/26/2024, repeat echo was done. Small to moderate pericardial effusion
was located near the right ventricle without evidence of hemodynamic compromise. EF 55 to 60%. Creatinine 4.3.
Today, patient is clinically stable for discharge. Sodium 131, creatinine 4.3, BUN 57. He has plans to follow-up with heme-onc and vascular for outpatient procedures of bone marrow biopsy and fistula placement to start dialysis. Patient is being
sent home on nifedipine and carvedilol for better blood pressure control. Sodium bicarbonate tablets will also continue. Patient educated on a renal diet by dietitian at the hospital. Patient is hopeful for fistula placement.
Discharge Plan
-
Patient Disposition: Home (Routine Discharge)
Discharge Diagnosis/Procedures: Anasarca with right upper extremity edema and penile edema, Acute kidney injury CKD stage IV, Pericardial effusion, Pleural effusion, Hyponatremia, History of prostate cancer with radiation, Coronary artery disease
history of stent, Mild to moderate mitral regurgitation, Hypertension, Hyperlipidemia, Anemia, Stage I coccygeal pressure injury , On going work up to rule out multiple myeloma
Diet: 2 Gram Sodium and Restrict fluids to 48 oz
Activity: No restrictions
Driving Restrictions: No driving
Bathing Restrictions: None
Other Services: VN
Specialty Instructions: Weigh Daily- Call MD for wt gain/loss 3 lbs overnight/5 lbs in 1 week
Activity Restrictions/Additional Instructions:
It is very important that you follow fluid restriction and salt restriction. You also need a bone marrow biopsy to be done. This needs to follow-up with hematology oncology for further treatment. Also follow-up with Dr. Virgen for vascular access
placement
Referrals:
[facility]Visiting [facility] [Outside]
Kaushik Zaldivar MD [Active] -
Kuldeep Tabares DO [Active] -
Chyna Lwoe MD [Family Provider] -
Deep Bains MD [Active] -
Gaudencio Virgen MD [Active] - 04/13/24 11:00 am
Snacho Kerns DO [Active] - (for Bone Marrow Biopsy)
Additional Discharge Medication Instructions: Stop Metoprolol. See changed dose of Nifedipine.
Prescriptions:
New
carvedilol 6.25 mg Tablet
6.25 mg PO BID Qty: 60 0RF
miconazole nitrate [Miconazorb AF] 2 % Powder
1 applic topical BID Qty: 85 0RF
sodium bicarbonate 650 mg Tablet
650 mg PO TID Qty: 90 0RF
Continued
latanoprost 1 DROP drops
0 drp ophthalmic (eye) HS Qty: 0 0RF
nifedipine 30 MG tablet extended release
60 mg PO HS Qty: 90 0RF
aspirin 81 MG tablet,delayed release (DR/EC)
81 mg PO DAILY Qty: 0 0RF
tamsulosin 0.4 MG capsule
0.4 mg PO HS Qty: 0 0RF
brimonidine 1 DROP drops
0 drp ophthalmic (eye) BID Qty: 0 0RF
dorzolamide 1 DROP drops
0 drp ophthalmic (eye) BID Qty: 0 0RF
rosuvastatin 10 MG tablet
10 mg PO DAILY Qty: 0 0RF
Discontinued
metoprolol tartrate
PO BID
nifedipine 30 MG tablet extended release
30 mg PO DAILY Qty: 90 0RF
Discharge Orders:
Discharge Patient (As Directed); Ordered 03/26/24
Ordered By: Lana Madrid
Care Plan Goals
Care Plan Goals:
Problem: Readiness for enhanced knowledge related to diagnosis and treatment plan
Goal: Understand your diagnosis and treatment plan needs, including medications if applicable.
Instructions: Know your diagnosis, underlying causes and treatment plan options, including medications if applicable. Consult with your health care team to learn about your diagnosis and treatment plan, including medications if applicable.
Discharge Date and Time
Print Language: HEBREW
--- NOTE | 2024-03-26 17:14 | W.PN.NEPH.PH ---
Today's Communication / Plan
-
ok for d/c
Assessment/Plan
-
Impression:
Acute kidney injury
Chronic kidney disease stage IV with baseline creatinine of 2,8
Penis and right upper extremity edema/volume overload
Hydronephrosis
Cystitis
Pericardial and pleural effusion
Coronary artery disease
Hypertension
Peripheral vascular disease
Renal cancer with history of left nephrectomy
Plan:
TORSTEN-cr slow to improve cr at 4.4 subjectively non oliguric, weight stable
serologies neg, UPEP, SPEP with monoclonal protein IgG heavy chain and kappa
out pt f/u with heme, BM biopsy
volume status seem stable, continue to hold lasix
clinically he has nephrotic syndrome
met acidosis-cont po bicarb
>60% stenosis of right renal art of solitary kidney-vascular consulted
given his advanced CKD not sure if there will much of gain from intervention , risk of AURA is high and also he is allergic to contrast
Previously discussed case with vascular surgery. Given the fact that the procedure would be an open abdominal procedure for vascular bypass of his renal artery, I do not think the benefit outweighs the risk of such an aggressive intervention. The
patient has longstanding progressive kidney disease and I doubt an open vascular procedure would prove successful especially in the setting of his vast comorbidities which includes previous abdominal surgeries, CAD, and extensive peripheral vascular
disease burden
He understands that he will likely need HD in near future and aware AVF creation could be a challenge with wide spread PAD
BP stable
follow hyponatremia, will likely need diuretics resumed in future
no emergent HD needs
he f/u with Dr Bains in 2-3weeks, BMP in 4days
d/w pt and nursing
-
-
Date of Service: March 26, 2024
CC / HPI / ROS
-
Chief Complaint:
TORSTEN
History of Present Illness:
TORSTEN/Cr slightly better at 4.3
Na low no change at 131
s/p pericardiocentesis 03/15, echo on 03/19, 03/26 mild to mod effusion -stable
BP stable
K low 4
hb better at 8.8
Review of Systems:
subjectively Nonoliguric
No chest pain or shortness of breath
appetite is improving
Weight stable
Labs
-
Labs:
WBC 6.3 10^3/uL (4.8-10.8) 03/26/24 05:26
RBC 3.00 10^6/uL (4.70-6.10) L 03/26/24 05:26
Hgb 8.8 g/dL (13.0-18.0) L 03/26/24 05:26
Hct 25.5 % (39.0-52.0) L 03/26/24 05:26
Plt Count 248 10^3/uL (130-400) 03/26/24 05:26
Sodium 131 mmol/L (135-145) L 03/26/24 05:26
Potassium 4.1 mmol/L (3.5-5.1) 03/26/24 05:26
Chloride 102 mmol/L (98-107) 03/26/24 05:26
Carbon Dioxide 19 mmol/L (22-30) L 03/26/24 05:26
BUN 57 mg/dl (9-20) H 03/26/24 05:26
Creatinine 4.3 mg/dL (0.7-1.3) H* 03/26/24 05:26
eGFR 13.22 03/26/24 05:26
Glucose 92 mg/dl (70-99) 03/26/24 05:26
Calcium 7.2 mg/dl (8.4-10.2) L 03/26/24 05:26
Fjw-E-Dtwriekmnkc Pept 1060 pg/ml 03/15/24 03:12
Albumin 3.3 g/dl (3.5-5.0) L 03/24/24 04:14
Physical Exam
-
Vital Signs:
Vital Signs
Temp Pulse Resp BP Pulse Ox
98.1 F 63 18 147/71 100
03/26/24 15:13 03/26/24 15:13 03/26/24 15:13 03/26/24 15:13 03/26/24 15:13
Cardiovascular:: Regular rate and rhythm
Respiratory:: Bilateral: CTA
Lung Excursion:: Normal
Abdomen:: Nontender and Soft
Stevenson Catheter: No
Other Findings::
bilat AKA
--- NOTE | 2024-03-26 18:47 | PTCARENOTE ---
Pt had ECHO done. Pt seen by Ji Sanchez and David. Pt denies any new issues. Telemetry and IV device removed. Discharge instructions reviewed at length with pt and his sister regarding medications, fluid and salt restriction, reporting
cares and concerns and multiple follow up appointments. Pt and his sister state good understaning of all information, VN will see him to also follow up. Pt in his wheelchair ready for discharge as soon as his ride arrives.
[2024-03-28 02:45] LABS: Free Kappa Light Chains,Quant 133.86 mg/L (3.30-19.40); Free Lambda Light Chains,Quant 55.76 mg/L (5.71-26.30)
== END 2024-03-26 19:53 | disposition home health service (06) | DRG 641 ==
LOC: IVU 05:00
PROVIDERS: Internal Medicine; Internal Medicine Cardiovascular Disease; Specialist; Student in an Organized Health Care Education/Training Program; ADMITTING PHYSICIAN Internal Medicine; ATTENDING PHYSICIAN Hospitalist; CONSULT PHYSICIAN Internal Medicine; CONSULT PHYSICIAN Internal Medicine Hematology & Oncology; CONSULT PHYSICIAN Specialist; CONSULT PHYSICIAN Surgery Vascular Surgery; EMERGENCY PHYSICIAN Emergency Medicine; FAMILY PHYSICIAN Emergency Medicine
PROC: 4A023N6 Measurement of Cardiac Sampling and Pressure, Right Heart, Percutaneous Approach (ICD-10-PCS; 2024-03-15)
PROC: 0W9D3ZX Drainage of Pericardial Cavity, Percutaneous Approach, Diagnostic (ICD-10-PCS; 2024-03-15)
DX: E87.70 Fluid overload, unspecified (principal); N17.9 Acute kidney failure, unspecified; I31.39 Other pericardial effusion (noninflammatory); I74.5 Embolism and thrombosis of iliac artery; J98.11 Atelectasis; N18.4 Chronic kidney disease, stage 4 (severe); N13.30 Unspecified hydronephrosis; E87.1 Hypo-osmolality and hyponatremia; E87.20 Acidosis, unspecified; M79.89 Other specified soft tissue disorders; E11.22 Type 2 diabetes mellitus with diabetic chronic kidney disease; I34.0 Nonrheumatic mitral (valve) insufficiency; D64.9 Anemia, unspecified; E78.00 Pure hypercholesterolemia, unspecified; I25.10 Atherosclerotic heart disease of native coronary artery without angina pectoris; I65.21 Occlusion and stenosis of right carotid artery; N40.0 Benign prostatic hyperplasia without lower urinary tract symptoms; I12.9 Hypertensive chronic kidney disease with stage 1 through stage 4 chronic kidney disease, or unspecified chronic kidney disease; L89.151 Pressure ulcer of sacral region, stage 1; H40.9 Unspecified glaucoma; K57.30 Diverticulosis of large intestine without perforation or abscess without bleeding; I70.1 Atherosclerosis of renal artery; E88.09 Other disorders of plasma-protein metabolism, not elsewhere classified; E87.6 Hypokalemia; L89.152 Pressure ulcer of sacral region, stage 2; N48.89 Other specified disorders of penis; E11.51 Type 2 diabetes mellitus with diabetic peripheral angiopathy without gangrene; Z95.5 Presence of coronary angioplasty implant and graft; Z89.611 Acquired absence of right leg above knee; Z89.612 Acquired absence of left leg above knee; Z85.46 Personal history of malignant neoplasm of prostate; Z85.528 Personal history of other malignant neoplasm of kidney; Z90.5 Acquired absence of kidney; Z80.0 Family history of malignant neoplasm of digestive organs; Z88.0 Allergy status to penicillin; Z88.7 Allergy status to serum and vaccine; Z88.8 Allergy status to other drugs, medicaments and biological substances; Z88.1 Allergy status to other antibiotic agents; Z91.041 Radiographic dye allergy status; Z79.82 Long term (current) use of aspirin; I25.2 Old myocardial infarction; Z92.3 Personal history of irradiation
CPT/HCPCS: 88305; 93308; 33016; 71046; 74176; 76770; 78708; 80048; 80053; 81003; 81015; 81050; 81099; 82040; 82550; 82570; 82607; 82728; 82784; 82945; 83036; 83516; 83521; 83540; 83550; 83615; 83735; 83880; 83935; 84153; 84155; 84156; 84157; 84165; 84300; 84484; 85014; 85025; 85027; 85652; 86038; 86140; 86160; 86334; 86335; 87015; 87070; 87102; 87116; 87205; 88112; 89051; 93005; 93306; 93321; 93325; 93451; 93971; 93975; 93985; 99285; A9539; C1894

== ENCOUNTER 2024-05-14 10:24 | Inpatient (IN) | payer MEDICARE, OTHER, SELFPAY ==
[2024-05-14] VITALS (47 sets, daily range): BP systolic 113–231; BP diastolic 74–139; BMI 19.7
[2024-05-14 08:04] LABS: Glucose - Point of Care 102 mg/dl (70-99)
--- NOTE | 2024-05-14 08:16 | PHANOTE ---
med rec note- as per ecw Toprol xl was stopped on 05/06/24
--- NOTE | 2024-05-14 08:32 | PTCARENOTE ---
Anesthesia:
0750 Called to ED to help with intubation, patient with extremely swollen tongue. DL with glidescope with poor view, copious blood in the airway related to patient biting tongue earlier. Suctioned and able to ventilate via ambu bag ventilation.
Able to pass ETT with stylet removed. +ETCO2 and +Bilat BBS.
See ER note for intubation drugs and patient care before anesthesia arrival.
--- NOTE | 2024-05-14 08:51 | EDRN ---
Addendum entered by Shelby Ni RN 05/14/24 08:54:
Fio2@ 100%. Vt 500 RR 16. Abd soft.
Cardene drip initiated
Original Note:
After PCXR to check ETT placement- to CT Scan, no change in condition. Returned to room. Unable to obtain blood via peripheral stick, physician to place central line. Unable to pass NGT ( obstruction noted a) and via OG - with tongue swollen tube
does not pass. ER physician aware. Cardene drip started for BP. VS monitored q 15 min. Propofol drip for sedation, though pt remains unresponsive. Monitor NSR. HR 75. Sats 100 % on vent - FiO@
[2024-05-14] MEDS: DIPRIVAN 100 IV ×2 (08:57→22:00)
[2024-05-14] MEDS: TRANDATE 20 MG IV (08:59)
[2024-05-14] MEDS: NSS 1000 IV (08:59)
--- NOTE | 2024-05-14 09:27 | ED.GENMED ---
History of Present Illness
General
Chief Complaint: Change Level of Consciousness
Source: family and ambulance crew
Exam Limitations: clinical condition
Time Seen by Provider: 05/14/24 08:28
Nursing documentation reviewed up to this point in time: agreed with
History of Present Illness
History of Present Illness:
78-year-old male with a past medical history of CAD, PVD status post stents, bilateral AKA, hypertension, CKD with prior left nephrectomy for renal cancer, distant history of prostate cancer; he presents via EMS unresponsive with tongue bleeding and
swelling. Patient cannot participate in history at all due to his acute clinical condition. According to EMS they received a call for an unresponsive patient and they found him unresponsive, severely hypertensive with massively swollen tongue
which was bleeding. They suctioned his airway and transported him to the emergency room. No reported history of seizures. I spoke to his niece (who lives with him) after initial evaluation and resuscitation�she says that he was in his normal
state of health yesterday. In the evening he was complaining of some abdominal discomfort but apparently still eaten steak and potatoes for dinner and was feeling a bit better. When she checked on him at around 10 PM he seemed to be sleeping
comfortably. This morning at around 7 AM when she was about to leave the house she went to notify him that she was leaving and found him with a swollen tongue, blood all over him and unresponsive although he was still breathing she says.
Past History
Past History
ED Past Medical History: CAD, Cancer (Renal, prostate), HTN, Other (Peripheral arterial disease, anemia, TORSTEN) and Other (GI bleed); Negative CHF, CVA, Hypercholesterolemia, IDDM or NIDDM
ED Past Surgical History: Cardiac (Cardiac stents) and Urological (Kidney removal for renal cancer)
Social History
Tobacco: Non-smoker
Alcohol: None
Drug: None
Personal:
Living: with family
Employment: Retired
Family History
Family History: Hypertension
Review of Systems
Review of Systems
Unable to obtain full review of systems at this time due to: due to acuity
All Other Systems: Not applicable
Phy Exam
Physical Exam
Physical Exam:
General: Obtunded, not responding to verbal or painful stimuli, GCS 3
Head: Normocephalic, no signs of head trauma/cephalhematoma
Eyes: Conjunctiva normal, pupils midrange and are reactive to light bilaterally
Throat: Patient has significant swelling of the tongue and tongue lacerations, blood pooling in the posterior oropharynx
Neck: Trachea midline
Lungs: Scattered rhonchi
Heart: Regular rate and rhythm, no murmurs, gallops, or rubs
Abd: Soft, non distended
Neuro: Unresponsive
Extremities: Bilateral AKA, slight edema of proximal stumps bilateral
Scores
Heart Failure Risk
Heart Failure Risk Score: Not Applicable
Heart Score for Chest Pain Patients
STEMI patient?: Not applicable
Withdrawal Assessment of Alcohol
Withdrawal Assessment Completed?: Not applicable
Course
Orders/Labs/Results
Orders:
Orders
05/14/24 Breakfast
NPO
Allow oral meds: Yes
Allow clear liquids: No
NPO with Ice Chips: No
05/14/24 07:49
Etomidate [Amidate] 40 mg .ROUTE .STK-MED ONE
Rocuronium [place] [Rocuronium] 100 mg .ROUTE .STK-MED ONE
05/14/24 07:57
Propofol 1,000,000 Mcg/100 ml [Diprivan] 1,000,000 mcg in 100 ml .ROUTE .STK-MED
05/14/24 07:58
Propofol [Diprivan] 20 ml .ROUTE .STK-MED
05/14/24 08:17
Labetalol HCl [Trandate] 20 mg .ROUTE .STK-MED ONE
05/14/24 08:23
CT Head W/o Iv Contrast Urgent
Comment:
Reason For Exam: seizure vs cva
05/14/24 08:25
CR Chest Portable - 1 View Urgent
Comment:
Reason For Exam: shock
Reason Study Needs to be Portable: Patient Unstable
05/14/24 08:29
Labetalol HCl [Trandate] 20 mg IV NOW STA
Propofol 1,000,000 Mcg/100 ml [Diprivan] 1,000,000 mcg in 100 ml IV NOW
Indication:: Light Sedation
Begin Infusion:: Now
Goal:: RASS 0 to -2
Maximum dose in mcg/kg/min:: 50
Initial dose based on RASS:: Yes
If RASS is:: +1 or pt hemodynamically unstable (SBP < 90mmHg), initiate at 10 mcg/kg/min
If RASS is:: +2, initiate at 20 mcg/kg/min
If RASS is:: greater than or equal to +3, initiate at 30 mcg/kg/min
Titration Instructions:: Titrate by 5-10 mcg/kg/min every 5 minutes until RASS 0 to -2 achieved.
Taper Instructions:: If RASS is at or below goal for 4 consecutive hours decrease infusion by
Taper Instructions:: 5-10 mcg/kg/min every 2 hours to off.
Over-sedation Instructions:: If CPOT 0-2 (at goal) AND RASS -3 to -5 (below goal) decrease sedative by
Over-sedation Instructions:: 50% first. If pain score remains at goal and RASS remains below goal in
Over-sedation Instructions:: 1 hour, decrease opioid infusion by 50%.
Notify provider:: immediately if patient exhibits signs/symptoms of propofol-related
Notify provider:: infusion syndrome.
Additional Instructions:: Patient MUST be mechanically ventilated and MUST receive analgesia.
05/14/24 08:30
0.9% Sodium Chloride 1000 ml [Nss] 1,000 ml IV BOLUS
05/14/24 08:39
ECG [Electrocardiogram (*1)] Urgent
Reason for Study: Shortness of Breath
05/14/24 08:40
EKG- Treatment ONCE
05/14/24 08:45
Nicardipine 40 mg/200 ml [Cardene] 40 mg in 200 ml .ROUTE .STK-MED
05/14/24 08:59
Blood Culture Routine
KRISTINE Source: Blood/Venous
Specimen Description:
05/14/24 09:06
CXR Port [CR Chest Portable - 1 View] Urgent
Comment:
Reason For Exam: central line placemet
Reason Study Needs to be Portable: Patient Unstable
05/14/24 09:20
Levetiracetam Injectable [Keppra] 1,000 mg IV NOW STA
Nicardipine 40 mg/200 ml [Cardene] 40 mg in 200 ml IV NOW
Initial dose in mg/hr, then titrate:: 5
Titrate to keep:: SBP 140 - 160 mmHg
Titrate by mg/hr:: 2.5 mg/hr
Frequency of titrations (minutes):: 5-15 minutes
Maximum dose in mg/hr:: 15
Begin to taper infusion when:: Remained at goal for 2hrs
Taper by mg/hr:: 2.5 mg/hr
Frequency of taper (minutes) if patient maintains goal:: 15-30 minutes
Taper to off?: Yes
If infusion off & no longer maintaining goal:: Contact Provider
05/14/24 09:21
Acetaminophen Urgent
Alcohol Urgent
CPK [Creatine Phosphokinase] Urgent
Complete Blood Count/With Diff Urgent
Comprehensive Metabolic Panel Urgent
Cortisol, Random Urgent
Comment: ADD ON
Free T4 Urgent
Lactate Level [Lactic Acid] Urgent
Lipase Urgent
Magnesium Urgent
NT-proBNP Urgent
Comment: ADD ON
PTT Urgent
Prothrombin Time Urgent
Salicylate Urgent
TSH Reflex To Free T4 Urgent
Triglycerides Routine
Comment: baseline levels with propofol infusion
Troponin I Urgent
Blood Culture Urgent
KRISTINE Source: Blood/Venous
Specimen Description:
05/14/24 09:23
CXR Port [CR Chest Portable - 1 View] Urgent
Comment:
Reason For Exam: check NGT
Reason Study Needs to be Portable: Patient Unstable
05/14/24 09:25
COVID-19 Antigen Urgent
Source: Nasal Swab
Hepatitis B Core Ab, Total Urgent
Comment: ADD ON
Hepatitis B Surface Antibody Urgent
Comment: ADD ON
Hepatitis B Surface Antigen Urgent
Comment: ADD ON
Hepatitis C Antibody Urgent
Comment: ADD ON
Influenza A+B Rapid Molecular Urgent
KRISTINE Source: Nasal Swab
Specimen Description:
05/14/24 09:27
Add On- LAB Urgent
Tests Added?: TSH
05/14/24 09:34
ABG [Arterial Blood Gas] Urgent
%Oxygen/Room Air: 95
05/14/24 09:56
MethylPREDNISolone PF [Solu-Medrol Pf] 125 mg IV NOW STA
05/14/24 09:57
Hat Finisher Consult Urgent
Consulting Provider: Marsha Perez
Was physician already notified: Yes
Reason for consult: intubated, seizures
05/14/24 09:58
NEPHROLOGY CONSULT Routine
Consulting Provider: Palak Hernandez
Was physician already notified: Yes
Reason for consult: advanced CKD with transplanted kidney
05/14/24 09:59
CT Abd/pel Without Iv Or Oral Urgent
Comment:
Reason For Exam: abdominal dyscomfort
05/14/24 10:01
Admit/Transfer Patient As Directed
Co-Sign Provider:
Level of Care: Inpatient admission
Assign to:: ICU
Physician / Group: Hospitalist
Diagnosis: Seizures
Reason for Hospitalization: Seizures, HTN emergency
Expected length of stay greater than two midnights?: Yes
ELOS- Estimated Length of Stay in days: 5
I certify the patient meets the requirements for IP care: Yes
PRN Pain Medication Management As Directed
May give lesser potent ordered pain med per pt: Yes
preference::
Protocol:: Medication orders for pain may be administered in a
manner that supports deferring to patient preference
when the pt is:
- Requesting an ordered lesser potent pain medication.
Least to most potent pain medications are defined
as: acetaminophen < NSAID < tramadol < opioids
(morphine, oxycodone, hydromorphone).
- Requesting a lesser dose of the same medication IF
ORDERED.
- Requesting a less intrusive route of administration
if both routes are prescribed by the provider (PO <
IV).
05/14/24 10:03
Code Status As Directed
Resuscitation Status: Full Code
05/14/24 10:22
NEUROLOGY CONSULT Routine
Consulting Provider: Clive Negron
Was physician already notified: Yes
Reason for consult: seizures
05/14/24 10:26
Acetaminophen [Tylenol/Feverall] 650 mg RECTAL Q4HPRN PRN
Bisacodyl [Dulcolax] 10 mg RECTAL [id number] PRN
Docusate W/Senna [Senokot-S] 1 tablet TUBE BIDPRN PRN
Nicardipine 40 mg/200 ml [Cardene] 40 mg in 200 ml IV PER PROTOCOL
Initial dose in mg/hr, then titrate:: 5
Titrate to keep:: SBP 140 - 160 mmHg
Titrate by mg/hr:: 2.5 mg/hr
Frequency of titrations (minutes):: 5-15 minutes
Maximum dose in mg/hr:: 15
Begin to taper infusion when:: Remained at goal for 2hrs
Taper by mg/hr:: 2.5 mg/hr
Frequency of taper (minutes) if patient maintains goal:: every 15-30 minutes
Taper to off?: Yes
If infusion off & no longer maintaining goal:: Contact Provider
Ondansetron Injectable [Zofran] 4 mg IV Q8HPRN PRN
Polyethylene Glycol Powder [Miralax] 17 grams TUBE DAILYPRN PRN
Propofol 1,000,000 Mcg/100 ml [Diprivan] 1,000,000 mcg in 100 ml IV PER PROTOCOL
Indication:: Deep Sedation
Begin Infusion:: Now
Goal:: RASS -3 to -5 or BIS < 60 or ventilator synchrony
Maximum dose in mcg/kg/min:: 50
Initial dose based on RASS:: Yes
If RASS is:: +1 or pt hemodynamically unstable (SBP < 90mmHg), initiate at 10 mcg/kg/min
If RASS is:: +2, initiate at 20 mcg/kg/min
If RASS is:: greater than or equal to +3, initiate at 30 mcg/kg/min
Titration Instructions:: Titrate by 5-10 mcg/kg/min every 5 minutes until RASS -3 to -5 or
Titration Instructions:: BIS < 60 or ventilator synchrony is met.
Titration Instructions:: Administer analgesia bolus dose(s) & titrate analgesia prior to
Titration Instructions:: adjusting sedation.
Taper Instructions:: If RASS is at or below goal for 4 consecutive hours decrease infusion by
Taper Instructions:: 5-10 mcg/kg/min every 2 hours. Do not wean infusion to off if patient is
Taper Instructions:: receiving a continuous NMBA or has received bolus NMBA with the past 3 hrs
Over-sedation Instructions:: If BIS < 40 and synchronous with ventilator decrease infusion by
Over-sedation Instructions:: 5-10 mcg/kg/min every 2 hour until BIS = 40-60.
Notify provider:: immediately if patient exhibits signs/symptoms of propofol-related
Notify provider:: infusion syndrome.
Additional Instructions:: Patient MUST be mechanically ventilated and MUST receive analgesia.
05/14/24 10:26
Echo 2D MMode Color/Doppler Urgent
Reason for Study: Hx of pericardial effusion
Activity As Directed
Activity Level: Out of Bed-Early Mobility
Vital Signs As Directed
Frequency: Per unit guidelines
DX Deep Vein Thrombosis Video Routine
05/14/24 11:31
Creatine Phosphokinase Routine
Lipase Routine
Triglycerides Routine
Comment: baseline levels with propofol infusion
05/14/24 13:12
Drug Screen, Urine [Urine Drug Abuse Screen] Urgent
Date Specimen was Collected: 05/14/24
Time Specimen was Collected: 13:05
Urinalysis Reflex To Culture Urgent
Date Specimen was Collected: 05/14/24
Time Specimen was Collected: 13:05
05/14/24 16:00
Heparin 5,000 units SC Q8
Sodium Bicarbonate 650 mg PO TID
05/14/24 20:00
Carvedilol [Coreg] 6.25 mg TUBE BID
Dorzolamide HCl [Trusopt 2% Ophthalmic Solution] 1 drop BOTH EYES BID
Levetiracetam Injectable [Keppra] 500 mg IV Q12
Miconazole Nitrate [Desenex/Mitrazol/Zeasorb] 1 applic TOPICAL BID
05/14/24 22:00
Latanoprost [Xalatan Ophthalmic Solution] 1 drop BOTH EYES HS
NIFEdipine EXTENDED RELEASE [Procardia Xl (Extended Release)] 60 mg PO HS
Tamsulosin [Flomax] 0.4 mg TUBE HS
05/15/24 06:00
Complete Blood Count/With Diff IN AM
Comprehensive Metabolic Panel IN AM
Magnesium IN AM
05/15/24 08:00
Aspirin Chewable [Low Strength Aspirin] 81 mg TUBE DAILY
Brimonidine [Alphagan P 0.15% Eye Drops] 1 drop BOTH EYES DAILY
Calcitriol [Rocaltrol] 0.5 mcg PO DAILY
Polyethylene Glycol Powder [Miralax] 17 grams TUBE DAILY
Rosuvastatin Calcium [Crestor] 10 mg TUBE DAILY
05/17/24 06:00
Triglycerides Q3D
Comment: every 72 hours while patient is on propofol
05/20/24 06:00
Triglycerides Q3D
Comment: every 72 hours while patient is on propofol
05/23/24 06:00
Triglycerides Q3D
Comment: every 72 hours while patient is on propofol
Abnormal Lab Results
05/14/24 05/14/24 05/14/24
07:52 09:21 09:34
RBC 2.85 L 10^6/uL
(4.70-6.10)
Hgb 8.3 L g/dL
(13.0-18.0)
Hct 24.2 L %
(39.0-52.0)
MPV 10.5 H fL
(7.4-10.4)
Abs Immat Gran (auto) 0.1 H 10^3/uL
(0-0.05)
Absolute Neuts (auto) 9.8 H 10^3/uL
(1.4-6.5)
Absolute Lymphs (auto) 0.3 L 10^3/uL
(1.2-3.4)
Neutrophils % 92.0 H %
(42.2-75.2)
Lymphocytes % 2.9 L %
(20.5-51.1)
PT 17.8 H Sec
(11.4-14.6)
APTT 37.6 H Sec
(23.4-35.0)
pH 7.49 H
(7.35-7.45)
pCO2 21 L mmHg
(35-48)
pO2 365 H mmHg
(83-108)
HCO3 16.0 L mmol/L
(21-28)
ABG O2 Sat (Measured) 100.0 H %
(94-98)
Carbon Dioxide 16 L mmol/L
(22-30)
BUN 66 H mg/dl
(9-20)
Creatinine 4.9 H* mg/dL
(0.7-1.3)
Glucose 112 H mg/dl
(70-99)
Lactic Acid 3.4 H mmol/L
(0.7-2.0)
Calcium 8.3 L mg/dl
(8.4-10.2)
AST 70 H U/L
(17-59)
ALT 85 H U/L
(0-50)
Alkaline Phosphatase 35 L U/L
(38-126)
Creatine Kinase 607 H U/L
(55-170)
Troponin I 0.101 H* ng/ml
Total Protein 6.2 L g/dl
(6.3-8.2)
Triglycerides 150 H mg/dl
(10-149)
TSH (Reflex) 204.00 H uIU/ml
(0.47-4.68)
Free T4 0.14 L ng/dl
(0.78-2.19)
Salicylates < 1.0 L mg/dl
(2.0-20.0)
Acetaminophen < 10 L ug/ml
(10-30)
POC Glucose 102 H mg/dl
(70-99)
05/14/24 09:21
05/14/24 09:21
Vital Signs
Initial and Last Documented VS:
Initial Vital Signs
Pulse Resp Pulse Ox
91 18 97
05/14/24 07:54 05/14/24 07:54 05/14/24 07:54
Last Documented Vital Signs
Temp Pulse Resp BP Pulse Ox
36.1 C 80 16 163/96 100
05/14/24 15:03 05/14/24 12:30 05/14/24 12:30 05/14/24 12:30 05/14/24 13:21
Procedures
Intubations
Procedure completed by: Davon Welsh MD (anesthesia and ENT assist)
Method of Intubation: glidescope
Tube size (cm): 7.5
Placement confirmed by: auscutation, CXR and capnography
Breath sounds after intubation: equal
Intubation complications: O2 saturation decreased
Additional information:
Multiple attempts at difficult intubation due to severe tongue swelling, pooling blood in the oropharynx and limited views of the vocal cords
Central Line
Left Internal jugular:
Indication for procedure:: multiple medication infusions, poor peripheral IV access
Procedure completed by: Davon Welsh MD
Consent form signed: No
If no, reason: Emergency procedure
Anesthesia: 1% Lidocaine
Central line lumen: triple
Number of attempts: 1
Central line complications: none
Sterile dressing applied?: Yes
X-ray: shows good placement
MDM/Problems Addressed
Differential Diagnosis Includes:
Brain bleed, CVA, PRESS syndrome, brain mass, primary seizure disorder
MDM/Problems Addressed:
78-year-old male presents unresponsive with massively swollen tongue with signs of trauma (bite sandoval) and active bleeding with blood pooling in his posterior oropharynx. He arrives to us hypertensive with a blood pressure over 200 and a GCS of 3.
His Accu-Chek is normal. His oxygen saturation and respiratory rate are fortunately normal but he was not protecting his airway and had pooling blood in the posterior oropharynx with massively swollen tongue�ENT and anesthesia paged stat to the ER;
airway suction for blood, bleeding on the tongue controlled with pressure�no gaping lacerations, only small lateral bite sandoval. Patient intubated with significant difficulty with ENT and anesthesia at bedside assisting. Post intubation chest x-ray
confirms placement. Patient started on propofol for postintubation sedation. Severely hypertensive and so he was given 20 mg IV labetalol and he was taken directly to CT to rule out brain bleed. CT reviewed in real-time and no acute pathology
noted. Patient remained severely hypertensive on arrival back from CT and so he was started on Cardene drip. At this point I was able to gather more history from daughter regarding timeline and ultimately stroke alert was called to expedite
neurology evaluation; neurology came to bedside and assessed�presumption at this point that patient had seizure which resulted in tongue trauma and swelling and embarrassed airway. Could be postictal from seizure or having subclinical seizures.
Alternatively could have hypertensive crisis with PRESS syndrome. Neurology recommended IV Keppra. Unfortunately we had difficulty getting blood from peripheral IV and so attention turned to placement of left internal jugular central venous
catheter for medication infusions. CVC successfully placed and placement confirmed with chest x-ray; no pneumothorax on postprocedural chest x-ray. Labs sent off including a CBC and a CMP, tox screen, coags, troponin, urinalysis, CPK, lactate,
blood cultures. Case discussed with hospitalist to expedite admission to the ICU.
After initial discussion with hospitalist I reviewed labs he does have stable anemia, CMP shows chronic kidney disease, no significant electrolyte derangements. His lactate and CPK are elevated and keeping with suspected diagnosis of seizure.
Marginal transaminitis essentially stable. Troponin marginally elevated likely related to severe hypertension. Patient being wheeled to ICU.
Chronic conditions affecting care:
Chronic kidney disease, hypertension, vascular disease
Acute Exacerbation and/or Progression of Chronic Illness:
Acutely hypertensive�presents in hypertensive crisis and this was treated as above
*Radiology
Radiology exam reviewed: preliminary read by ED provider and radiology read reviewed
*Pulse Oximetry
Patient hypoxic: no
*EKG
Interpreted by ED Provider?: Yes
Heart Rate: 81
Rate: normal
Rhythm: sinus and PVC's
[place]: normal axis
Interval: long QT
QRS Pattern: normal QRS
Ischemia: no ischemia
*Critical Care Note
Total Time (30-74mins, 75-104mins- exclusive of procedures): 110
comment:
Critical care statement: A total of 110 minutes of critical care time was provided for this patient. This includes management of unstable vital signs, evaluation of the patient at bedside, frequent reassessment, discussion with
consultants/hospitalist, and review of pertinent medical records. This time was separate from time utilized to perform any aforementioned documented procedures
Patient Management
Discussion with other providers: Hospitalist (Discussed with hospitalist) and Straightedge Worker (Discussed with neurologist, discussed with anesthesia and ENT)
Escalation/DeEscalation of care consider admission/obs:
Admission to ICU indicated
ED Attending Note
-
Portions of this chart may have been created with voice recognition software.� Occasional wrong word or��sound alike� substitutions may have occurred due to the inherent limitations of voice recognition software.
Discharge Plan
Departure
Patient Disposition: Admit
Date of Disposition: 05/14/24
Time of Disposition: 09:26
Admit to doctor: Victoria
Presentation/result/management discussed w/ accepting MD/DO: Hospitalist
Discharge Problem:
Seizure, Laceration of tongue, Embarrassed airway, Encephalopathy
Interventions
Interventions:
*Risk Screen - Suicide Last Done: 05/14/24 12:35
*Neglect/Abuse Screening Last Done: 05/14/24 09:05
ED- Fall Risk Assessment Last Done: 05/14/24 10:00
*ED COVID-19 Vaccine History Last Done: 05/14/24 09:05
*Nursing Disposition Last Done: 05/14/24 10:30
ED- Cardiac Assessment Last Done: 05/14/24 08:12
ED- Neurological Assessment Last Done: 05/14/24 08:00
ED- Pulmonary Assessment Last Done: 05/14/24 08:00
Discharge Date and Time
Discharge Date/Time: 05/14/24 10:30
[2024-05-14] MEDS: CARDENE 200 IV (09:28)
[2024-05-14 09:31] LABS: % Basophils 0.2 % (0-2); % Immature Granulocytes 0.5 % (0-0.5); % Lymphocytes 2.9 % (20.5-51.1); % Monocytes 4.4 % (1.7-9.3); Absolute Immature Granulocytes 0.1 10^3/uL (0-0.05); Absolute Lymphocytes 0.3 10^3/uL (1.2-3.4); Absolute Monocytes 0.5 10^3/uL (0.1-0.6); Absolute Neutrophils 9.8 10^3/uL (1.4-6.5); Hematocrit 24.2 % (39.0-52.0); Hemoglobin 8.3 g/dL (13.0-18.0); Mean Corp Hgb Conc. 34.3 g/dL (33.0-37.0); Mean Corpuscular Hgb 29.1 pg (27.0-31.0); Mean Corpuscular Volume 84.9 fL (80.0-94.0); Mean Platelet Volume 10.5 fL (7.4-10.4); Nucleated Red Blood Cells % 0 % (-); Platelet Count 156 10^3/uL (130-400); Red Blood Cell Count 2.85 10^6/uL (4.70-6.10); Red Cell Dist. Width 14.5 % (11.5-14.5); White Blood Cell Count 10.7 10^3/uL (4.8-10.8)
[2024-05-14] MEDS: KEPPRA 1000 MG IV (09:35)
[2024-05-14 09:42] LABS: INR 1.48; PT 17.8 Sec (11.4-14.6)
[2024-05-14 09:43] LABS: APTT 37.6 Sec (23.4-35.0)
[2024-05-14 09:47] LABS: Lactic Acid 3.4 mmol/L (0.7-2.0)
[2024-05-14 09:47] LABS: B.E. -6.1 mmol/L; PCO2 21 mmHg (35-48); PO2 365 mmHg (83-108); pH 7.49 (7.35-7.45)
[2024-05-14 09:55] LABS: COVID-19 Antigen Negative (Negative)
[2024-05-14 09:58] LABS: ALT (SGPT) 85 U/L (0-50); AST (SGOT) 70 U/L (17-59); Acetaminophen < 10 ug/ml (10-30); Albumin 3.7 g/dl (3.5-5.0); Alcohol < 10 mg/dl; Alkaline Phosphatase 35 U/L (38-126); Blood Urea Nitrogen 66 mg/dl (9-20); Calcium 8.3 mg/dl (8.4-10.2); Carbon Dioxide 16 mmol/L (22-30); Chloride 105 mmol/L (98-107); Creatine Phosphokinase 607 U/L (55-170); Glucose 112 mg/dl (70-99); Lipase 151 U/L (23-300); Magnesium 1.7 mg/dl (1.6-2.3); Potassium 4.1 mmol/L (3.5-5.1); Salicylate < 1.0 mg/dl (2.0-20.0); Sodium 141 mmol/L (135-145); Total Bilirubin 0.7 mg/dl (0.2-1.3); Total Protein 6.2 g/dl (6.3-8.2); Triglycerides 150 mg/dl (10-149)
[2024-05-14 10:03] LABS: Troponin I 0.101 ng/ml
--- NOTE | 2024-05-14 10:08 | CM ---
CM attempted TC to pt's niece, Yumiko, no answer, unable to leave message due to mailbox being full.
Will attempt additional call.
[2024-05-14] MEDS: SOLU-MEDROL PF 125 MG IV (10:12)
--- NOTE | 2024-05-14 10:34 | CON.INTV ---
Consultation
Consultation Request
Date/Time Consultation Requested: 05/14/24
Date/Time Consultation Performed: 05/14/24
Performing Provider: Chris
Reason for Consultation: ICU
Medical History
-
History of Present Illness:
Patient is an 78-year-old male with previous history of severe PAD status post bilateral AKA, bilateral femorofemoral bypass, history of prostate cancer, CAD status post PCI, sacral pressure wound, labile hypertension, history of right solitary
kidney, renal artery stenosis presenting after being found by family unresponsive, 'covered in blood.' Niece states that he went to bed the night before without any issue except he noted abdominal pain. She did not recall his mouth being swollen.
She found him unresponsive this a.m. blood on chest and across the room, stemming from his mouth. EMS called, on arrival he had witnessed seizure. In the ER, blood pressure greater than 220 he was intubated for airway protection, he had notable
tongue lacerations. TSH is 204. He has no prior history of thyroid disease. Family did not feel he eat/drank anything out of the ordinary. Admitted to ICU.
.
Past Medical History
Past Medical History: Other (see list below)
Social History
Tobacco: Non-smoker
Alcohol: None
Drug: None
Family History
Family History: Reviewed & Not Pertinent
Allergies / Home Medications
Allergies
Allergy/AdvReac Type Severity Reaction Status Date / Time
Hydantoins Allergy Severe Rash Verified 05/14/24 08:09
penicillin G Allergy Severe liver Verified 05/14/24 08:09
damage,
red hands
and feet
Penicillins Allergy Severe liver Verified 05/14/24 08:09
damage,
red hands
and feet
phenytoin Allergy Severe Rash Verified 05/14/24 08:09
ciprofloxacin Allergy Intermediate Itching Verified 05/14/24 08:09
Iodinated Contrast Media Allergy Intermediate chills;trem Verified 05/14/24 08:09
[Iodinated Contrast- Oral ors
and IV Dye]
tetanus and diphtheria Allergy Intermediate Swelling, Verified 05/14/24 08:09
toxoids Pain at
site
Home Medications
�Medication �Instructions �Recorded �Confirmed �Last Taken �Type
aspirin 81 mg tablet,delayed 81 mg PO DAILY Heart 03/26/24 05/14/24 03/12/24 Rx
release disease/condition #0 tabs
calcitriol 0.25 mcg capsule 0.5 mcg PO DAILY 03/26/24 05/14/24 03/13/24 History
carvedilol 6.25 mg tablet 6.25 mg PO BID Blood pressure #60 03/26/24 05/14/24 Unknown Rx
tabs
nifedipine 30 mg tablet,extended 60 mg (2 x 30 mg) PO HS Heart 03/26/24 05/14/24 03/12/24 Rx
release disease/condition #90 tabs
rosuvastatin 10 mg tablet 10 mg PO DAILY High cholesterol #0 03/26/24 05/14/24 03/12/24 Rx
tabs
sodium bicarbonate 650 mg tablet 650 mg PO TID #90 tabs 03/26/24 05/14/24 Unknown Rx
tamsulosin 0.4 mg capsule 0.4 mg PO HS Urinary issue #0 caps 03/26/24 05/14/24 03/12/24 Rx
brimonidine 0.15 % eye drops 1 drp BOTH EYES DAILY 05/14/24 05/14/24 Unknown History
dorzolamide 2 % eye drops 1 drp BOTH EYES BID 05/14/24 05/14/24 Unknown History
furosemide 40 mg tablet (Lasix) 40 mg PO DAILY 05/14/24 05/14/24 Unknown History
latanoprost 0.005 % eye drops 1 drp BOTH EYES HS Eye condition 05/14/24 05/14/24 Unknown History
miconazole nitrate 2 % topical 1 applic topical BID groin 05/14/24 05/14/24 Unknown History
powder (Miconazorb AF)
Review of Systems
-
History Source: Patient
All other systems: Negative unless noted
Vitals / Labs / Diagnostic Testing
Vital Signs
Pulse Resp BP Pulse Ox
74 16 198/99 100
05/14/24 09:30 05/14/24 09:30 05/14/24 09:30 05/14/24 09:30
Lab Data
05/14/24 09:21
05/14/24 09:21
Laboratory Results
05/14/24 05/14/24
09:21 09:34
PT 17.8 H
INR 1.48
APTT 37.6 H
pH 7.49 H
pCO2 21 L
pO2 365 H
HCO3 16.0 L
O2 Delivery Level
Microbiology
05/14/24 09:25 Nasal Swab Influenza Types A & B (NATE) - Final
Negative for Influenza A & B, NAAT
Negative results must be combined with clinical observations
and patient history.
Nucleic Acid Amplification test (NAAT)performed on the
[employer] platform.
Diagnostic Testing:
Physical Exam
-
HEENT: Normocephalic, Anicteric and Other (Severe macroglossia noted, laceration on tongue on R, pressure sore on L; blood noted in mouth/packed )
Cardiovascular: S1/S2, Regular Rhythm and Peripheral Edema (in B/L thighs, B/L AKA)
Respiratory: Rhonchi (diffuse, B/L), Non-Labored Respirations and Other (ETT in place)
GI: Soft, Non Distended and Non Tender
Neurology: Other (unresponsive)
Skin: Warm and Dry
General: Other (sedated/intubated, critically ill)
Assessment
-
Patient is an 78-year-old male with previous history of severe PAD status post bilateral AKA, bilateral femorofemoral bypass, history of prostate cancer, CAD status post PCI, sacral pressure wound, labile hypertension, history of right solitary
kidney, renal artery stenosis presenting after being found by family unresponsive, 'covered in blood.' Niece states that he went to bed the night before without any issue except he noted abdominal pain. She did not recall his mouth being swollen.
She found him unresponsive this a.m. blood on chest and across the room, stemming from his mouth. EMS called, on arrival he had witnessed seizure. In the ER, blood pressure greater than 220 he was intubated for airway protection, he had notable
tongue lacerations. TSH is 204. He has no prior history of thyroid disease. Admitted to ICU.
Acute myxedema coma
Unresponsiveness
Witnessed tonic clonic seizure en route
Severe macroglossia s/p intubation
Hypertensive emergency >220 on arrival
Tongue laceration with oral bleeding
Metabolic acidosis
Lactic acidosis
Elevated LFTs
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
Ravena lambda light chains
TORSTEN/CKI multiple etiologies including renal artery stenosis 60% on solitary kidney
Penis and right upper extremity edema/volume overload
Chronic hydronephrosis
History of Cystitis
Pericardial and pleural effusion
Coronary artery disease
Hypertension
Peripheral vascular disease
Renal cancer with history of left nephrectomy
Plan
Unresponsive, likely from coma
Denies pain at this time.
Pain/sedation: fent PRN, can likely stop sedation gtts
RASS goals: 0
Hemodynamically stable, not requiring pressors.
Cardiac history reviewed--HTN, CAD/PAD, BP elevated on arrival, maintain on cardene
Prior ECHO reviewed indicating normal function
Cards eval obtained
Monitor on telemetry
Oxygen needs: intubated, for airway protection
Vent setting reviewed: AC 500/16/50/5+
Prior history of lung disease: none known, rule out infection
Supplemental O2 as indicated to maintain sats > 89%
CXR/CT reviewed indicating stable findings compared to prior imaging
NPO, resume diet when able
Rug Shampooer recommendations
Aspiration precautions, HOB > 30 degrees
Speech therapy eval can be considered if at elevated risk
GI prophylaxis if indicated for mechanical ventilation >48 hours, prior history of GERD, stress ulcer formation in the critically ill
Elevated LFTs, follow serially
CT AP for abdominal pain but unremarkable
CKD--Creat at baseline, renal consult
Void trials
Follow urine output, critical I/Os
Replete electrolytes as needed
May need HD this admission
WBC elevated but could be due to seizure
Observe off antibiotics for now
Law culture
Follow fever trend, WBC count
Lactate elevated on admission, continue to trend until <2
CBC stable, bleeding at mouth, packed
DVT prophylaxis as assessed based on risk, including mechanical SCDs
Can transfuse if indicated for Hb <7, plt < 10
INR WNL
TSH 204, myxedema coma
Change IV solumedrol to HC, add IV synthroid
Consult endodrine, discussed care via TT
No prior known h/o diabetes or thyroid disease
Repeat labs
Add on cortisol
Prognosis guarded
Diagnostic Data
Chest X-Ray: 05/14/24- Endotracheal tube with tip at the zeenat. Consider retracting 2 cm. Nonspecific small left basilar opacity which partially obscures the hemidiaphragm. This could represent a small effusion and/or airspace consolidation.
CT Scan: AP 05/14/24- IMPRESSION:
1. Significantly limited study secondary to diffuse volume overload with infiltration of the intra-abdominal fat and absence of oral and intravenous contrast. No gross acute abnormalities appreciated.
2. Small bilateral pleural effusions and likely small pericardial effusion.
3. Small volume of ascites with diffuse infiltration of the mesenteric fat.
4. Probable cholelithiasis.
5. Extensive aortoiliac atherosclerotic disease with femoral-femoral bypass graft.
Echo: 03/26/24- Normal left ventricular size, wall thickness and systolic function. Left ventricular ejection fraction is 55-60% by visual assessment. Normal right ventricular size and function. Limited valvular interrogation. Small to moderate
pericardial effusion located near right ventricle without evidence of hemodynamic compromise. Compared to prior from March 19, 2024, on indirect [id number] comparison findings appear similar.
PFT's:
Reports and relevant images were personally reviewed.
-----
Critical Care time 105 mins -- The patient is admitted for acute critical illness for the treatment of vital organ failure and/or prevention of further life-threatening conditions. Total care includes time spent in review of history, physical exam,
medications, hemodynamic/ventilator parameters, laboratory data, imaging and discussion with house staff, pharmacy, respiratory therapy, specialty transformer assembler, and nursing. Prolonged time spent on exam, speaking/updating family.
--- NOTE | 2024-05-14 10:41 | HPS.HSE ---
Family Physician
-
Family Physician: INTERVIEWE UNKNOWN - PT NOT
Chief Complaint
-
unresponsive tongue bites
History of Present Illness
78yo M with PMHx of severe PAD s/p b/l AKA s/p fem-fem bypass, Hx of prostate CA, CAD s/p PCI, stage 1 sacral pressure wound, glaucoma, labile HTN, Hx of pericardial effusion, R solitary kidney, Hx of retroperitoneal fibrosis, renal artery stenosis,
recent [facility] protein with monoclonal spike brought by the family after he was found unresponsive with swallen and bleeding tongue, in ED found with significant HTN >220, intubated for protection of airways and treated for possible seizures. As
per family - patient was complaining for some abdominal dyscomfort on the day prior, also his home blood pressures were very labile, varying from normotension to severe HTN
Medical History
Past Medical History
Past Medical History: Reports Other
Additional Past Medical History:
See HPI
Past Surgical History: Reports Other
Additional Past Surgical History:
See HPI
Social History
Unable to obtain full social history at this time due to: Patient Intubation
Family History
Family History: Not pertinent
Allergies / Home Medications
Allergies reflects when Allergies were last updated in [employer].
Home Medications with original date entered in [employer]
Allergy/Medication List:
Allergies
Allergy/AdvReac Type Severity Reaction Status Date / Time
Hydantoins Allergy Severe Rash Verified 05/14/24 08:09
penicillin G Allergy Severe liver Verified 05/14/24 08:09
damage,
red hands
and feet
Penicillins Allergy Severe liver Verified 05/14/24 08:09
damage,
red hands
and feet
phenytoin Allergy Severe Rash Verified 05/14/24 08:09
ciprofloxacin Allergy Intermediate Itching Verified 05/14/24 08:09
Iodinated Contrast Media Allergy Intermediate chills;trem Verified 05/14/24 08:09
[Iodinated Contrast- Oral ors
and IV Dye]
tetanus and diphtheria Allergy Intermediate Swelling, Verified 05/14/24 08:09
toxoids Pain at
site
Home Medications
aspirin 81 mg tablet,delayed release 81 mg PO DAILY Heart disease/condition #0 tabs 03/26/24
calcitriol 0.25 mcg capsule 0.5 mcg PO DAILY 03/26/24
carvedilol 6.25 mg tablet 6.25 mg PO BID Blood pressure #60 tabs 03/26/24
nifedipine 30 mg tablet,extended release 60 mg (2 x 30 mg) PO HS Heart disease/condition #90 tabs 03/26/24
rosuvastatin 10 mg tablet 10 mg PO DAILY High cholesterol #0 tabs 03/26/24
sodium bicarbonate 650 mg tablet 650 mg PO TID #90 tabs 03/26/24
tamsulosin 0.4 mg capsule 0.4 mg PO HS Urinary issue #0 caps 03/26/24
brimonidine 0.15 % eye drops 1 drp BOTH EYES DAILY 05/14/24
dorzolamide 2 % eye drops 1 drp BOTH EYES BID 05/14/24
furosemide 40 mg tablet (Lasix) 40 mg PO DAILY 05/14/24
latanoprost 0.005 % eye drops 1 drp BOTH EYES HS Eye condition 05/14/24
miconazole nitrate 2 % topical powder (Miconazorb AF) 1 applic topical BID groin 05/14/24
Review of Systems
-
Unable to obtain full review of systems at this time due to: Patient Intubation
Physical Exam
Vital Signs
Vital Signs
Pulse Resp BP Pulse Ox
86 11 158/80 100
05/14/24 10:30 05/14/24 10:30 05/14/24 10:30 05/14/24 10:15
Physical Exam
General: Intubated
HEENT: Other (swollen tongue)
Respiratory: No Wheezes, Rales or Rhonchi
Cardiac: S1/S2 and Regular Rhythm
GI: Soft and Non Distended; No Normal Bowel Sounds
Musculoskeletal: No Clubbing and No Cyanosis
Skin: Warm and Lesions (sacral)
Neuro: Sedated
Psych: Calm
Laboratory Results
-
05/14/24 09:21
05/14/24 09:21
Laboratory Results
PT 17.8 Sec (11.4-14.6) H 05/14/24 09:21
INR 1.48 05/14/24 09:21
APTT 37.6 Sec (23.4-35.0) H 05/14/24 09:21
pH 7.49 (7.35-7.45) H 05/14/24 09:34
pCO2 21 mmHg (35-48) L 05/14/24 09:34
pO2 365 mmHg (83-108) H 05/14/24 09:34
HCO3 16.0 mmol/L (21-28) L 05/14/24 09:34
Lactic Acid 3.4 mmol/L (0.7-2.0) H 05/14/24 09:21
Total Bilirubin 0.7 mg/dl (0.2-1.3) 05/14/24 09:21
AST 70 U/L (17-59) H 05/14/24 09:21
ALT 85 U/L (0-50) H 05/14/24 09:21
Alkaline Phosphatase 35 U/L (38-126) L 05/14/24 09:21
Troponin I 0.101 ng/ml H* 05/14/24 09:21
Lipase 151 U/L (23-300) 05/14/24 09:21
Data Reviewed
-
Diagnostic Radiology: Report Reviewed by me
CT Scan: Report Reviewed by me
Lab Data: Labs Reviewed by me
Impression/Plan
-
A/P:
#HTN emergency with subsequent seizures, causing significant tongue biting and impending airway compromise
Nicardipine drip
Intubated for protection of the airways on 05/14/24
Target normotension
restart home meds, place NG for medications
Sedation and vent mgmt as per template checker
Solumedrol dose in ED, cont 40 q8h
[address]
Head CT with chronic changes and moderate dilation of ventricles and sulci
Keppra, neuro consult, eventual MRI brain
Seizure precautions
#Small L lung basilar opacity on XR
cannot exclude early pneumonia, unlikely sepsis or septic shock
Azactam (gino allergy)/Vanco
Legionella and S.pneumonia urinary Ag
Sputum Cx if possible
Check COVID-19 and influenza PCR
Bcx
#Elevated troponin, most likely non-ischemic cardiac injury 2/2 airway compromize
#Hx of pericardial effusion s/p pericardiocentesis
with HTN - unlikely tamponade
Echo
Cardiology consult
serial troponin
EKG initially without ST elevation
Cont ASA
#Recent abdominal discomfort
CT abd
Lipase WNL
#TORSTEN on CKD stage 4 with HAGMA and elevated lactate
Nephrology consult
follow Cr
#Transaminitis
since 03/2004
check hepatitis profile
follow LFT
#PAD s/p b/l AKA and femoral stents
#Renal artery stenosis
Previously followed with VascSx - deemed not a candidate for renal artery revasc with poor kidney injury
#Hx of prostate CA
#HLD
#Glaucoma
#Hx of GIB
#CHronic anemia
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
#Stage 1 sacral wound
#Diverticulosis
Follow up with Onc for outpatient BM biopsy as planned prior
COnt home meds
Wound care
DVT ppx hep
Full code as discussed in details with family bedside
I have spent at least 80min critical care time, reviewing patient chart, test and imaging results, communication with consultants and family and direct patient care
--- NOTE | 2024-05-14 11:02 | CON.CAR ---
Addendum entered and electronically signed by Riley Mcginnis MD 05/14/24 17:23:
78 yo male with PMH of PAD s/p bilateral AKA, CKD4, pericardial effusion, admitted after being found unresponsive, and had seemed to have bitten his tongue. BP was severely elevated at 212/107 (managed by nephrology as outpatient). He is now
intubated. We are consulted for elevated troponin. Exam significant for intubated, sedated patient; s/p b/l AKA. TnI is 0.101, 0.102. EKG shows SR with PAC's, and no acute ischemic changes. Tele: SR 80s. Of note, TSH is >200. Echo shows EF >70%,
mild/mod MR and AR, and stable moderate pericardial effusion.
Elevated troponin appears to be acute non-ischemic myocardial injury in setting of HTN emergency. No additional cardiac testing recommended at this time. Please call us back with additional questions.
Original Note:
Consultation
Consultation Request
Date/Time Consultation Requested: 05/14/24 10a
Date/Time Consultation Performed: 05/14/24 11a
Requesting Provider: Dr. Contreras
Performing Provider: CLAUDY Fleming for Dr. Mcginnis
Reason for Consultation: HTN emergency
Medical History
-
Chief Complaint: found unresponsive
History of Present Illness:
Mr. Boogie is an 78 yo male with CKD4, renal cell cancer s/p left nephrectomy, right renal artery stenosis, PAD b/l AKA, right ICA stenosis (followed by Dr. Virgen), CAD, labile HTN, mild to moderate mitral regurgitation, pericardial effusion s/p
pericardiocentesis 03/15/24 and HLD, who was found unresponsive at home by his niece with a bloody swollen tongue. He was intubated in the ER and is admitted to the ICU by the hospitalist. We are consulted for HTN emergency, on arrival BP was
212/107, he received Labetalol IV and started on Cardene drip. BP is now controlled. Also troponin 0.101. Family is at the bedside and states he c/o mild abdominal discomfort yesterday afternoon that resolved after eating dinner.
Past Medical History
Past Medical History: Other (as above)
Past Surgical History: Other (b/l AKA, left fem-posterior tibial artery bypass, right and left common femoral endarterectomies with patch, right iliofemoral stent)
Social History
Tobacco: Non-Smoker
Living: Alone
Employment: Retired
Family History
Family History: Reviewed & Not Pertinent
Allergies / Home Medications
Allergy/AdvReac Type Severity Reaction Status Date / Time
Hydantoins Allergy Severe Rash Verified 05/14/24 08:09
penicillin G Allergy Severe liver Verified 05/14/24 08:09
damage,
red hands
and feet
Penicillins Allergy Severe liver Verified 05/14/24 08:09
damage,
red hands
and feet
phenytoin Allergy Severe Rash Verified 05/14/24 08:09
ciprofloxacin Allergy Intermediate Itching Verified 05/14/24 08:09
Iodinated Contrast Media Allergy Intermediate chills;trem Verified 05/14/24 08:09
[Iodinated Contrast- Oral ors
and IV Dye]
tetanus and diphtheria Allergy Intermediate Swelling, Verified 05/14/24 08:09
toxoids Pain at
site
�Medication �Instructions �Recorded �Confirmed �Type
aspirin 81 mg tablet,delayed 81 mg PO DAILY Heart 03/26/24 05/14/24 Rx
release disease/condition #0 tabs
calcitriol 0.25 mcg capsule 0.5 mcg PO DAILY Kidney Disease 03/26/24 05/14/24 History
carvedilol 6.25 mg tablet 6.25 mg PO BID Blood pressure #60 03/26/24 05/14/24 Rx
tabs
nifedipine 30 mg tablet,extended 60 mg (2 x 30 mg) PO HS Heart 03/26/24 05/14/24 Rx
release disease/condition #90 tabs
rosuvastatin 10 mg tablet 10 mg PO DAILY High cholesterol #0 03/26/24 05/14/24 Rx
tabs
sodium bicarbonate 650 mg tablet 650 mg PO TID #90 tabs 03/26/24 05/14/24 Rx
tamsulosin 0.4 mg capsule 0.4 mg PO HS Urinary issue #0 caps 03/26/24 05/14/24 Rx
brimonidine 0.15 % eye drops 1 drp BOTH EYES DAILY Eye Condition 05/14/24 05/14/24 History
dorzolamide 2 % eye drops 1 drp BOTH EYES BID Eye Condition 05/14/24 05/14/24 History
furosemide 40 mg tablet (Lasix) 40 mg PO DAILY Fluid 05/14/24 05/14/24 History
Retention/Swelling
latanoprost 0.005 % eye drops 1 drp BOTH EYES HS Eye condition 05/14/24 05/14/24 History
miconazole nitrate 2 % topical 1 applic topical BID groin 05/14/24 05/14/24 History
powder (Miconazorb AF)
Review of Systems
-
Unable to obtain full review of systems at this time due to: Acuity and Patient Intubation
Physical Exam
Vital Signs
Pulse Resp BP Pulse Ox
86 11 158/80 96
05/14/24 10:30 05/14/24 10:30 05/14/24 10:30 05/14/24 10:54
Lab Results
05/14/24 09:21
05/14/24 09:21
Troponin I 0.101 ng/ml H* 05/14/24 09:21
Physical Exam
General: Intubated
HEENT: Other (mouth with bloody gauze and oral airway due to tongue swelling)
Respiratory: Clear (anteriorly) and Other (intubated on vent)
Cardiac: S1/S2 and Regular Rhythm
Breast: Deferred by me
GI: Soft and Non Distended
Rectal: Deferred by Provider
Musculoskeletal: No Clubbing
Skin: Warm and Dry
Neuro: Sedated
Psych: Calm
Impression / Plan
-
HTN emergency - acute.
- IV Cardene drip now with improved BP.
- continue outpatient meds and monitor.
- nephrology manages BP as an outpatient.
Non-ischemic myocardial injury - acute.
- in the setting of acute hypertensive emergency with possible seizure.
- trend troponin.
- check echo.
- family denies any cardiac symptoms recently.
Unresponsive episode - possible seizure.
- significant tongue swelling.
- per hospitalist/roundhouse worker.
TORSTEN on CKD4 - nephrology following.
- outpatient appt next week with Dr. Virgen to discuss AV fistula for possible HD.
- s/p left nephrectomy.
PAD - managed by Dr. Virgen as an outpatient.
- multiple interventions and b/l AKA.
- ASA and Crestor.
Data Reviewed
-
EKG: Tracing Personally Visualized and interpreted (NSR PVC [address] Scan: Report Reviewed by me (head: moderate changes of cortical atrophy and chronic ischemic disease)
Medical Tests (Nuc Med, Echo etc): Report Reviewed by me (echo 03/26/24: EF 55-60%, small to moderate pericardial effusion near right ventricle w/o hemodynamic compromise)
Labs: Labs Reviewed by me
Old Records: Reviewed
--- NOTE | 2024-05-14 11:11 | W.CON.NEPH ---
Consultation
-
Date/Time Consultation Requested: 05/14/24 0958
Date/Time Consultation Performed: 1045
Requesting Provider: Clark Paredes
Performing Provider: Palak Ward
Reason for Consultation: CKD5
Medical History
-
Chief Complaint: unresponsive , tongue bite suspected SZ
History of Present Illness:
The patient is an 78-year-old male with a past medical history of chronic kidney disease stage V with a noted creatinine baseline of 2.8 from October 2023, lately in 4 range recent admit in Mar. He has a history of hypertension and is maintained on
the combinations of nifedipine, coreg. He has a known history of BPH maintained on tamsulosin. He also has a prior history of malignant neoplasm of prostate and renal cell carcinoma, nephrectomy and ZAC of solitary kidney too, extensive history of
both coronary artery and peripheral vascular disease and has undergone previous bifemoral bypass left AKA , Hx of pericardial effusion, retroperitoneal fibrosis,recent formerly [facility], [facility] protein with monoclonal spike who brought by the family after he was
found unresponsive with swollen and bleeding tongue, in ED found with significant HTN >220, intubated for protection of airways and treated for possible seizures. As per family - patient was complaining for some abdominal discomfort on the day
prior, also his home blood pressures were very labile, varying from normotension to severe. He saw PCP late Mar and BP were in 190 range and coreg dose increased. He reached out to out office few days ago with high BPs and edema and was started back
on lasix 40mg daily. He has not had f/u with heme since hospitalization in Mar. he started on nicardene gtt for hypertension. He is intubated for airway protection, severe macroglossia noted. Cr at 4.9, last cr in Mar was 4.3. Nephrology consulted
for further eval of CKD and HTN. Per family whom he lives with , had M fall few days ago and paramedics were called to assist him. He probably was not following the diet very well.
Past Medical History
Chronic kidney disease stage V
Hydronephrosis
Pericardial and pleural effusion
Coronary artery disease
Hypertension
Peripheral vascular disease
Renal cancer with history of left nephrectomy
Hx of retroperitoneal fibrosis,
solitary kidney with renal artery stenosis
cancer of prostate
anemia
GI bleed
stage 1 sacral pressure wound,
glaucoma
karely-rogers protein with monoclonal spike
Past Surgical History: Other (Left Nephrectomy, left lower artery bypass surgery, Left AKA, Right transfemoral amputation)
Social History
Tobacco: Non-Smoker
Alcohol: None
Family History
No CKD
Allergies / Home Medications
Allergy/AdvReac Type Severity Reaction Status Date / Time
Hydantoins Allergy Severe Rash Verified 05/14/24 08:09
penicillin G Allergy Severe liver Verified 05/14/24 08:09
damage,
red hands
and feet
Penicillins Allergy Severe liver Verified 05/14/24 08:09
damage,
red hands
and feet
phenytoin Allergy Severe Rash Verified 05/14/24 08:09
ciprofloxacin Allergy Intermediate Itching Verified 05/14/24 08:09
Iodinated Contrast Media Allergy Intermediate chills;trem Verified 05/14/24 08:09
[Iodinated Contrast- Oral ors
and IV Dye]
tetanus and diphtheria Allergy Intermediate Swelling, Verified 05/14/24 08:09
toxoids Pain at
site
�Medication �Instructions �Recorded �Confirmed �Type
aspirin 81 mg tablet,delayed 81 mg PO DAILY Heart 03/26/24 05/14/24 Rx
release disease/condition #0 tabs
calcitriol 0.25 mcg capsule 0.5 mcg PO DAILY Kidney Disease 03/26/24 05/14/24 History
carvedilol 6.25 mg tablet 6.25 mg PO BID Blood pressure #60 03/26/24 05/14/24 Rx
tabs
nifedipine 30 mg tablet,extended 60 mg (2 x 30 mg) PO HS Heart 03/26/24 05/14/24 Rx
release disease/condition #90 tabs
rosuvastatin 10 mg tablet 10 mg PO DAILY High cholesterol #0 03/26/24 05/14/24 Rx
tabs
sodium bicarbonate 650 mg tablet 650 mg PO TID #90 tabs 03/26/24 05/14/24 Rx
tamsulosin 0.4 mg capsule 0.4 mg PO HS Urinary issue #0 caps 03/26/24 05/14/24 Rx
brimonidine 0.15 % eye drops 1 drp BOTH EYES DAILY Eye Condition 05/14/24 05/14/24 History
dorzolamide 2 % eye drops 1 drp BOTH EYES BID Eye Condition 05/14/24 05/14/24 History
furosemide 40 mg tablet (Lasix) 40 mg PO DAILY Fluid 05/14/24 05/14/24 History
Retention/Swelling
latanoprost 0.005 % eye drops 1 drp BOTH EYES HS Eye condition 05/14/24 05/14/24 History
miconazole nitrate 2 % topical 1 applic topical BID groin 05/14/24 05/14/24 History
powder (Miconazorb AF)
Review of Systems
-
unable to obtain
Unable to obtain full review of systems at this time due to: Patient Intubation
Physical Exam
Vital Signs
Vital Signs
Pulse Resp BP Pulse Ox
86 11 158/80 96
05/14/24 10:30 05/14/24 10:30 05/14/24 10:30 05/14/24 10:54
Lab Results
WBC 10.7 10^3/uL (4.8-10.8) 05/14/24 09:21
RBC 2.85 10^6/uL (4.70-6.10) L 05/14/24 09:21
Hgb 8.3 g/dL (13.0-18.0) L 05/14/24 09:21
Hct 24.2 % (39.0-52.0) L 05/14/24 09:21
Plt Count 156 10^3/uL (130-400) 05/14/24 09:21
Sodium 141 mmol/L (135-145) 05/14/24 09:21
Potassium 4.1 mmol/L (3.5-5.1) 05/14/24 09:21
Chloride 105 mmol/L (98-107) 05/14/24 09:21
Carbon Dioxide 16 mmol/L (22-30) L 05/14/24 09:21
BUN 66 mg/dl (9-20) H 05/14/24 09:21
Creatinine 4.9 mg/dL (0.7-1.3) H* 05/14/24 09:21
eGFR 11.30 05/14/24 09:21
Glucose 112 mg/dl (70-99) H 05/14/24 09:21
Calcium 8.3 mg/dl (8.4-10.2) L 05/14/24 09:21
Albumin 3.7 g/dl (3.5-5.0) 05/14/24 09:21
CXR:
IMPRESSION:
Endotracheal tube with tip at the zeenat. Consider retracting 2 cm.
Nonspecific small left basilar opacity which partially obscures the hemidiaphragm. This could represent a small effusion and/or airspace consolidation
CT head:
IMPRESSION:
There are moderate changes of cortical atrophy and chronic ischemic disease
EKG personally reviewed, ,NSR with PVc
Physical Exam
General: Other (sedated, intubated)
HEENT: Other (tongue massively enlarged and lac left lateral tongue )
Respiratory: Rhonchi (bilat coarse)
Cardiac: S1/S2 and Regular Rate/Rhythm
Breast: Deferred by me
Abdomen: Soft, Nontender and Nondistended
Musculoskeletal: No Cyanosis, Edema (gen anasarca) and Other (bilat AKA stump clean )
Skin: No Rash
Neuro: Sedated
Psych: Other (sedated)
Assessment/Plan
-
Impression:
HTN emergency
Suspected seizures with tongue bite
Acute respiratory failure -VDRF
Elevated troponin, most likely non-ischemic cardiac injury
Hx of pericardial effusion s/p pericardiocentesis
Recent abdominal discomfort
TORSTEN on CKD stage 5 -cr mid 4s in Mar
mixed acid base disorder-HAGMA and elevated lactate
Alkalemia with primary rep alkalosis
Transaminitis
PAD s/p b/l AKA and femoral stents
Renal artery stenosis of solitary kidney-deemed not a candidate for renal artery revasc with poor vascular
Hx of prostate CA
HLD
Glaucoma
Hx of GIB
CHronic anemia
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
Stage 1 sacral wound
Diverticulosis
Coronary artery disease
Renal cancer with history of left nephrectomy
Plan:
A/w unresponsive and tongue bite from SZ
TORSTEN- cr not too far from last admit cr, suspect he may be CKD 5
HTN emergency -on nicardene gtt, titrate as needed to keep SBP 160-180, seem to have labile BPs
known right renal art stenosis but deemed not surgical candidate with poor vasculature and risks outweighs benefits
will consider vasc eval again
He also with MGUS supposed to see heme out pt but never happened for BM biopsy
ok to continue diuresis as needed, check BNP
monitor uop with alicea
Though has AGMA Ph is alkalemic, likely repeat ABG and if Ph is low-replace IV bicarb
SZ-neuro follows, CK 607
macroglossia-severe probably traumatic, await TSH
no emergent need of HD however if renal function worsens likely need this admit
echo pending with prior h/o pericardial effusion
pending CT abd for abd discomfort CARE AIDE
d/w ICU, pt family
CC time spent 50min
[2024-05-14 11:51] LABS: Hepatitis B Surface Antigen Negative (Negative)
[2024-05-14] MEDS: BENADRYL 25 MG IV (12:01)
[2024-05-14 12:05] LABS: Creatine Phosphokinase 613 U/L (55-170); Lactic Acid 2.1 mmol/L (0.7-2.0); Lipase 131 U/L (23-300); Triglycerides 180 mg/dl (10-149)
[2024-05-14 12:09] LABS: Hepatitis B Core Ab, Total Negative (Negative); Hepatitis B Surface Antibody Negative; Hepatitis C Antibody Negative (Negative)
[2024-05-14 13:03] LABS: Free T4 0.14 ng/dl (0.78-2.19)
[2024-05-14 13:20] LABS: NT-proBNP 5450 pg/ml
[2024-05-14 13:27] LABS: Urine Albumin 3+ (Neg - Trace); Urine Bilirubin Negative (Negative); Urine Character Clear (Clear); Urine Color Yellow; Urine Glucose Negative (Negative); Urine Ketone Negative (Negative); Urine Leukocyte Negative (Negative); Urine Nitrite Negative (Negative); Urine Occult Blood 2+ (Negative); Urine Specific Gravity 1.015 (<1.030); Urine Urobilinogen Negative (Neg - 1+)
[2024-05-14 13:36] LABS: Urine Bacteria Few (Negative); Urine White Cell 0-2 /HPF (0-5)
--- NOTE | 2024-05-14 13:37 | PTCARENOTE ---
Addendum entered by Babita Diamond RN 05/14/24 17:19:
@1330- unable to place harjinder singleton aware.
Original Note:
pt received from previous rn- ett to vent- pt unresponsive off propofol, occasionally withdrawals to pain, absent gag at this time. pupils 3 PERRLA. pt tongue severely swollen with noted lacerations, copious bloody secretions. pt with #7.5 26@lip,
see vent settings as charted. pt on low dose cardene for systolic goal 140-160. nsr with bbb on monitor, coarse lung sounds. pt with bilateral bka. condom cath applied. all labs sent as per order. pt taken for ct. plan of care discussed with
[place]- Dr. Singleton notified of left ij cvc with no blood return to medial and distal ports, lines not in use as this time. iv team notified- pt ordered for picc line. bilateral ac ints flush, sites c/d/i. right nare NGT at 65 cm, minimal brown drainage
noted. family at bedside and updated. all safety precautions in place.
[2024-05-14 13:45] LABS: Amphetamines Negative (Negative); Barbiturates Negative (Negative); Benzodiazepines Negative (Negative); Buprenorphine Negative (Negative); Cocaine Negative (Negative); Marijuana Negative (Negative); Methadone Negative (Negative); Methamphetamines Negative (Negative); Opiates Negative (Negative); Phencyclidine Negative (Negative); Tricyclic Antidepressants Negative (Negative)
[2024-05-14] MEDS: LEVOTHROID 50 MCG IV (13:47)
--- NOTE | 2024-05-14 14:45 | WOUNDNOTE ---
WOC RN NOTE: Reviewed chart and spoke to RNBabita. Patient currently having PICC line placed and could not be turned. Per chart review patient has a stage 1 PI. Per Trudy, no sacral wound noted just a small scabbed area. Will confirm cancelling of
consult with hospitalist.
--- NOTE | 2024-05-14 14:54 | CON.NEURO4 ---
Consultation - Neurology 4
-
CONSULTING PHYSICIAN: Clive Negron MD (Neurology)
REFERRING PHYSICIAN: Hospitalist
DICTATED BY: Clive Negron MD
DATE/TIME OF REQUEST: May 14, 2024
DATE/TIME OF CONSULTATION: May 14, 2024 0930
Reason for Consultation: Seizures
History of Present Illness:
This is a 78 year old right) handed (male who has presented to the hospital with (chief complaint) seizures. 78-year-old male with a past medical history of CAD, hypertension/hyperlipidemia, CKD, prostate cancer, renal cancer s/p nephrectomy(L),
glaucoma, GI bleed and retroperitoneal fibrosis severe PAD status post bilateral AKA, bilateral femoral bypass, history of prostate cancer, CAD status post PCI, sacral pressure wound, labile hypertension, renal artery stenosis, pericardial effusion
monoclonal gammopathy glaucoma presenting after being found by family unresponsive, 'covered in blood.'
Niece states that he went to bed the night before without any issue except he noted abdominal pain. She did not recall his mouth being swollen. She found him unresponsive this a.m. bleeding from his mouth with a swollen tongue frothing blood on
chest and across the room, stemming from his mouth. EMS called, on arrival they witnessed seizure. In the ER, systolic blood pressure greater than 220 and he was intubated for airway protection, he had notable tongue lacerations. TSH is 204. He
has no prior history of thyroid disease. His home blood pressures were very labile, varying from normotension to severe.
He saw PCP late Mar and BP were elevated systolic 190 and Coreg dose increased. He reached out to PCP few days ago with high BPs and edema and was started back on Lasix 40mg daily
At the time of my examination he was intubated and sedated on propofol.
Past Medical History: As above
Surgical History: As above
Family History: Noncontributory
Social History: Lives alone does not smoke use alcohol
Allergies: Penicillin phenytoin Cipro iodine tetanus and diphtheria vaccines
Home Medications: See addendum
Review of Symptoms: I am unable to obtain a complete review of systems�because of patient's comatose and sedated intubated on ventilator .'
Vital Signs: Temp Pulse Resp BP Pulse Ox
36.1 C 80 16 163/96 100
Physical Exam:
The patient is afebrile, heart sounds S1 and S2 are (regular, and chest is coarse to auscultation bilaterally. The tongue is swollen covered in blood and protruding. Bilateral above-knee amputation
- If not clear, describe.
Neurologic Examination:
The patient is comatose sedated intubated on a ventilator. He is unable to follow commands. Speech cannot be tested
On cranial nerve assessment, pupils are 3 mm bilateral, round and sluggish . Extraocular movements are i impaired . Facial sensations cannot be tested , there is no facial asymmetry. Hearing is intact bilaterally to normal conversation volume.
Tongue palate and uvula are midline. Sternocleidomastoid strengths are full bilaterally.
Motor strength cannot be tested. Deep tendon reflexes are absent bilateral upper . Sensations of pain, touch, temperature and vibration cannot be tested. Coordination cannot be tested
Laboratory values: See addendum
Results:
Neuro Imaging:
Impression:
(Mr. ALPESH YOUNG is a 78 year old M who has presented to the hospital with (symptoms/chief complaint). Altered mental status secondary to seizures and uncontrolled hypertension
Differentials for the patient's presentation include:
1. Hypertensive encephalopathy
2. New onset seizures
3. Cerebrovascular event
4. Acute on chronic renal insufficiency
Recommendations:
1. IV Keppra 1000 mg followed by 500 mg IV twice daily
2. Endocrinology consult
3. Strict blood pressure management
4 correct underlying metabolic acidosis
5. EEG
Overall prognosis guarded
Discussed patient care with: Family and hospitalist
Allergies
-
Allergies
Allergy/AdvReac Type Severity Reaction Status Date / Time
Hydantoins Allergy Severe Rash Verified 05/14/24 08:09
penicillin G Allergy Severe liver Verified 05/14/24 08:09
damage,
red hands
and feet
Penicillins Allergy Severe liver Verified 05/14/24 08:09
damage,
red hands
and feet
phenytoin Allergy Severe Rash Verified 05/14/24 08:09
ciprofloxacin Allergy Intermediate Itching Verified 05/14/24 08:09
Iodinated Contrast Media Allergy Intermediate chills;trem Verified 05/14/24 08:09
[Iodinated Contrast- Oral ors
and IV Dye]
tetanus and diphtheria Allergy Intermediate Swelling, Verified 05/14/24 08:09
toxoids Pain at
site
Vital Signs and Labs
-
Vital Signs and Labs:
Vital Signs
Temp Pulse Resp BP Pulse Ox
36.1 C 80 16 163/96 100
05/14/24 15:03 05/14/24 12:30 05/14/24 12:30 05/14/24 12:30 05/14/24 13:21
Lab Results
05/14/24 09:21
PT 17.8 Sec (11.4-14.6) H 05/14/24 09:21
INR 1.48 05/14/24 09:21
APTT 37.6 Sec (23.4-35.0) H 05/14/24 09:21
Sodium 141 mmol/L (135-145) 05/14/24 09:21
Potassium 4.1 mmol/L (3.5-5.1) 05/14/24 09:21
BUN 66 mg/dl (9-20) H 05/14/24 09:21
Glucose 112 mg/dl (70-99) H 05/14/24 09:21
Calcium 8.3 mg/dl (8.4-10.2) L 05/14/24 09:21
Bsn-U-Obmtlcxvfew Pept 5450 pg/ml 05/14/24 09:21
Ur Buprenorphine Negative (Negative) 05/14/24 13:12
Medications
-
Active Medications
Generic Name Dose Route Start Last Admin
Trade Name Freq PRN Reason Stop Dose Admin
Acetaminophen 650 mg 05/14/24 10:26
Acetaminophen 650 Mg Rectal Suppository RECTAL 06/11/24 10:25
Q4HPRN PRN
mild pain/DIAZ/temp> 100.4F
Aspirin 81 mg 05/15/24 08:00
Aspirin 81 Mg Chewable Tablet TUBE 06/12/24 07:59
DAILY GAVI
Bisacodyl 10 mg 05/14/24 10:26
Bisacodyl 10 Mg Rectal Suppository RECTAL 06/11/24 10:25
Q02NDUD PRN
constipation
Brimonidine Tartrate 1 drop 05/15/24 08:00
Brimonidine 0.15% (Ophthalmic Solution) 5 Ml Bottle BOTH EYES 06/12/24 07:59
DAILY GAVI
Calcitriol 0.5 mcg 05/15/24 08:00
Calcitriol 0.25 Microgram Capsule PO 06/12/24 07:59
DAILY GAVI
Carvedilol 6.25 mg 05/14/24 20:00
Carvedilol 6.25 Mg Tablet TUBE 06/11/24 19:59
BID GAVI
Dorzolamide HCl 1 drop 05/14/24 20:00
Dorzolamide 2% (Ophthalmic Solution) 10 Ml Bottle BOTH EYES 06/11/24 19:59
BID GAVI
Fentanyl Citrate 50 mcg 05/14/24 11:44 05/14/24 15:04
Fentanyl (50 Mcg/Ml) 100 Mcg/2 Ml Ampul IV 05/28/24 11:43 50 mcg
[id number] PRN Administration
see protocol
Protocol
Heparin Sodium 5,000 units 05/14/24 16:00
Heparin 5,000 Units/Ml 1 Ml Vial SC 06/11/24 15:59
Q8 GAVI
Hydrocortisone Sodium Succinate 50 mg 05/14/24 18:00
Hydrocortisone Sodium Succinate 100 Mg/2 Ml Vial IV 06/11/24 17:59
Q6 GAVI
Nicardipine/Sodium Chloride 40 mg in 200 mls @ 0 mls/hr 05/14/24 10:26
Cardene IV
PER PROTOCOL GAVI
Protocol
Per Protocol
Propofol 1,000,000 mcg in 100 mls @ 0 mls/hr 05/14/24 11:45
Diprivan IV
PER PROTOCOL GAVI
Protocol
Per Protocol
Latanoprost 1 drop 05/14/24 22:00
Latanoprost 0.005% (Ophthalmic Solution) 2.5 Ml Bottle BOTH EYES 06/11/24 21:59
HS GAVI
Levetiracetam 500 mg 05/14/24 20:00
Levetiracetam (100 Mg/Ml) 500 Mg/5 Ml Vial IV 06/11/24 19:59
Q12 GAVI
Levothyroxine Sodium 50 mcg 05/14/24 13:00 05/14/24 13:47
Levothyroxine 100 Mcg (20 Mcg/Ml) Vial IV 06/11/24 12:59 50 mcg
DAILY GAVI Administration
Protocol
Miconazole Nitrate 1 applic 05/14/24 20:00
Miconazole Powder Bottle TOPICAL 06/11/24 19:59
BID GAVI
Nifedipine 60 mg 05/14/24 22:00
Nifedipine 30 Mg Extended Release Tablet PO 06/11/24 21:59
HS GAVI
Polyethylene Glycol 17 grams 05/15/24 08:00
Polyethylene Glycol Powder 17 Grams Packet TUBE 06/12/24 07:59
DAILY GAVI
Polyethylene Glycol 17 grams 05/14/24 10:26
Polyethylene Glycol Powder 17 Grams Packet TUBE 06/11/24 10:25
DAILYPRN PRN
constipation
Senna/Docusate Sodium 1 tablet 05/14/24 10:26
Docusate W/Senna (Geri-Colace) Tablet TUBE 06/11/24 10:25
BIDPRN PRN
constipation
Sodium Chloride 0 flush 05/14/24 11:00
Sodium Chloride 0.9% (Flush) Syringe IV 06/11/24 10:59
PER PROTOCOL GAVI
Home Medications
�Medication �Instructions �Recorded
aspirin 81 mg tablet,delayed 81 mg PO DAILY Heart 03/26/24
release disease/condition #0 tabs
calcitriol 0.25 mcg capsule 0.5 mcg PO DAILY Kidney Disease 03/26/24
carvedilol 6.25 mg tablet 6.25 mg PO BID Blood pressure #60 03/26/24
tabs
nifedipine 30 mg tablet,extended 60 mg (2 x 30 mg) PO HS Heart 03/26/24
release disease/condition #90 tabs
rosuvastatin 10 mg tablet 10 mg PO DAILY High cholesterol #0 03/26/24
tabs
sodium bicarbonate 650 mg tablet 650 mg PO TID #90 tabs 03/26/24
tamsulosin 0.4 mg capsule 0.4 mg PO HS Urinary issue #0 caps 03/26/24
brimonidine 0.15 % eye drops 1 drp BOTH EYES DAILY Eye Condition 05/14/24
dorzolamide 2 % eye drops 1 drp BOTH EYES BID Eye Condition 05/14/24
furosemide 40 mg tablet (Lasix) 40 mg PO DAILY Fluid 05/14/24
Retention/Swelling
latanoprost 0.005 % eye drops 1 drp BOTH EYES HS Eye condition 05/14/24
miconazole nitrate 2 % topical 1 applic topical BID groin 05/14/24
powder (Miconazorb AF)
[2024-05-14] MEDS: SUBLIMAZE 50 MCG IV ×4 (15:04→23:44)
[2024-05-14] MEDS: HEPARIN 5000 UNITS SC ×2 (15:09→23:39)
--- NOTE | 2024-05-14 16:16 | PTCARENOTE ---
Addendum entered by Babita Diamond RN 05/14/24 17:20:
iv team in to place right picc line- ok to use- flushes with good blood return.
Original Note:
pt became more awake, responding to name, attempting to pull at ett, fentanyl given per protocol, restraints applied. turned and repositioned. labs sent. frequent oral care and suctioning for blood secretions. assessment unchanged further.
[2024-05-14 16:40] LABS: Troponin I 0.102 ng/ml
[2024-05-14 16:49] LABS: Lactic Acid 1.7 mmol/L (0.7-2.0)
[2024-05-14 17:06] LABS: Blood Urea Nitrogen 71 mg/dl (9-20); Calcium 8.6 mg/dl (8.4-10.2); Carbon Dioxide 16 mmol/L (22-30); Chloride 105 mmol/L (98-107); Estimated Creatinine Clearance 9 ml/min; Glucose 132 mg/dl (70-99); Potassium 4.2 mmol/L (3.5-5.1); Sodium 139 mmol/L (135-145)
[2024-05-14 17:14] LABS: Cortisol, Random 96.4 ug/dl
[2024-05-14] MEDS: SOLU-CORTEF 50 MG IV ×2 (17:15→23:38)
[2024-05-14 17:29] LABS: Triglycerides 144 mg/dl (10-149)
--- NOTE | 2024-05-14 17:44 | CON.MD ---
Consultation - Medical
-
Mr. Boogie is an 78 yo male with stage 4 CKD, renal cell cancer s/p left nephrectomy, significant vasculopathy including ZAC, bilateral AKA, right ICA stenosis (followed by Dr. Virgen), CAD, and admitted after being found unresponsive by niece with
enlarged, bleeding tongue. Being treated here for hypertensive urgency and possible seizure activity. Intubated for airway protection and admitted. Found to be hyponatremic and TSH over 200. Pt admitted a month ago also having hyponatremia at that
time. I do not see prior TSH levels in the system, so this has likely been in place for some time. No apparent thyroid history. No evidence for bradycardia or hypothermia. Gland is difficult to palpate. We have confirmed adrenal function is intact,
and I spoke with team this morning about beginning IV levothyroxine. His weight based dose is 80 mcg daily. IV should be about 70% of target PO dose so we have elected to start 50 mcg IV. Would check both TSH and free T4 within the next 2 days.
Upon discharge I would place him on 75 mcg PO daily, recheck TFT's 4 weeks following d/c and titrate accordingly. Will follow with you; please call with questions.
[2024-05-14] MEDS: KEPPRA 500 MG IV (19:51)
[2024-05-14] MEDS: COREG 6.25 MG TUBE (19:54)
[2024-05-14] MEDS: TRUSOPT 2% OPHTHALMIC SOLUTION 1 DROP BOTH EYES (19:55)
[2024-05-14] MEDS: DESENEX/MITRAZOL/ZEASORB 1 APPLIC TOPICAL (19:55)
--- NOTE | 2024-05-14 20:28 | PTCARENOTE ---
Handoff report received from off going RN. Dual RN gtt reconciliation completed. Patient received on mechanical ventilation with propofol at 25 mcg/kg/min (7.6ml/hr). Patient assessed, opens his eyes to verbal and tactile stimuli. Pupils are +2. Pt
moves bilateral uppers, but doesn't follow simple commands. Grimaces and attempting to reach at his ETT. Plan of care for the shift and pain management plan reviewed with the patient. Sinus rhythm on the monitor with BBB on the monitor. Weak femoral
pulses. Pt's tongue is +3 edema and bloody. PRN administered. # 7.5 ETT at 26 @ the right lip. Gently suction patient for bloody sputum. SpO2 at 100% on ventilator. Attempted mouth care with RT with difficulty as to not dislodge tube. RT suggests
ETT to not be disturbed. Hypoactive BS. Right nare NGT to LIWS and draining small amount of brown output. Pt's draining small amount of sedimented yellow urine via a # 30 condom catheter. PIV. Patient turned and repositioned. Bilateral restraints
are intact. Safety measures maintained.Full assessment as noted on the worklist.
[2024-05-14] MEDS: XALATAN OPHTHALMIC SOLUTION 1 DROP BOTH EYES (21:53)
[2024-05-15] VITALS (25 sets, daily range): BP systolic 116–177; BP diastolic 67–91; BMI 19.9
--- NOTE | 2024-05-15 00:22 | PTCARENOTE ---
Patient reassessed does not follow commands. Pt's grimacing and moving his head side to side with left arm up. PRN administered for discomfort. VSS. Mouth care provided . Patient suctioned for small and bloody sputum. Continues to make small amount
of urine. Turns and repositioning continued. Propofol remains at 25 mcg/kg/hr. ETT remains on the right side of the mouth.
[2024-05-15] MEDS: SUBLIMAZE 50 MCG IV ×4 (01:10→11:07)
[2024-05-15 03:48] LABS: B.E. -5.8 mmol/L; O2 Saturation % 99.7 % (94-98); PO2 138 mmHg (83-108); pH 7.54 (7.35-7.45)
[2024-05-15 03:50] LABS: HCO3 15.4 mmol/L (21-28); PCO2 18 mmHg (35-48)
[2024-05-15 04:05] LABS: % Basophils 0.1 % (0-2); % Immature Granulocytes 0.4 % (0-0.5); % Lymphocytes 4.1 % (20.5-51.1); % Monocytes 5.7 % (1.7-9.3); % Neutrophils 89.7 % (42.2-75.2); Absolute Lymphocytes 0.4 10^3/uL (1.2-3.4); Absolute Monocytes 0.6 10^3/uL (0.1-0.6); Absolute Neutrophils 9.6 10^3/uL (1.4-6.5); Hematocrit 23.3 % (39.0-52.0); Hemoglobin 8.2 g/dL (13.0-18.0); Mean Corp Hgb Conc. 35.2 g/dL (33.0-37.0); Mean Corpuscular Hgb 29.9 pg (27.0-31.0); Mean Platelet Volume 10.7 fL (7.4-10.4); Nucleated Red Blood Cells % 0 % (-); Platelet Count 146 10^3/uL (130-400); Red Blood Cell Count 2.74 10^6/uL (4.70-6.10); Red Cell Dist. Width 13.8 % (11.5-14.5); White Blood Cell Count 10.7 10^3/uL (4.8-10.8)
[2024-05-15 04:31] LABS: ALT (SGPT) 62 U/L (0-50); AST (SGOT) 40 U/L (17-59); Albumin 3.3 g/dl (3.5-5.0); Alkaline Phosphatase 30 U/L (38-126); Blood Urea Nitrogen 70 mg/dl (9-20); Calcium 8.5 mg/dl (8.4-10.2); Carbon Dioxide 16 mmol/L (22-30); Chloride 105 mmol/L (98-107); Estimated Creatinine Clearance 8 ml/min; Glucose 111 mg/dl (70-99); Magnesium 1.8 mg/dl (1.6-2.3); Potassium 3.9 mmol/L (3.5-5.1); Sodium 140 mmol/L (135-145); Total Bilirubin 0.6 mg/dl (0.2-1.3); Total Protein 5.8 g/dl (6.3-8.2); eGFR 10.77
[2024-05-15] MEDS: SODIUM BICARBONATE 50 MEQ IV (04:42)
--- NOTE | 2024-05-15 04:56 | PTCARENOTE ---
Patient reassessed, openes his eyes to tactile and verbal stimuli/command. moves all extremities. Pupils are +2 and reactive. The patient's tongue remains +3 edema and bloody. Patient suctioned. Lab results related to the FIELD MARK[employer]ER. one amp bicarb
administered. Patient cleansed with CHG wipes and linens changed. Propofol remains at 25 mcg. PRN administered per protocol. Safety measures maintained.
[2024-05-15] MEDS: SOLU-CORTEF 50 MG IV ×4 (05:51→23:47)
[2024-05-15] MEDS: MIRALAX 17 GRAMS TUBE (07:29)
[2024-05-15] MEDS: COREG 6.25 MG TUBE ×2 (07:29→20:55)
[2024-05-15] MEDS: DESENEX/MITRAZOL/ZEASORB 1 APPLIC TOPICAL ×2 (07:29→20:56)
--- NOTE | 2024-05-15 07:29 | W.PN.INTV ---
Today's Communication / Plan
Recommendations
Continues on IV synthroid, IV steroids
Recheck TSH
Creat rising, renal following--may need HD
Tongue already improving but not safe yet for extubation
Continue current treatment
Assessment
-
Patient is an 78-year-old male with previous history of severe PAD status post bilateral AKA, bilateral femorofemoral bypass, history of prostate cancer, CAD status post PCI, sacral pressure wound, labile hypertension, history of right solitary
kidney, renal artery stenosis presenting after being found by family unresponsive, 'covered in blood.' Niece states that he went to bed the night before without any issue except he noted abdominal pain. She did not recall his mouth being swollen.
She found him unresponsive this a.m. blood on chest and across the room, stemming from his mouth. EMS called, on arrival he had witnessed seizure. In the ER, blood pressure greater than 220 he was intubated for airway protection, he had notable
tongue lacerations. TSH is 204. He has no prior history of thyroid disease. Admitted to ICU.
Acute myxedema coma
Unresponsiveness
Witnessed tonic clonic seizure en route
Severe macroglossia s/p intubation
Hypertensive emergency >220 on arrival
Tongue laceration with oral bleeding
Metabolic acidosis
Lactic acidosis
Elevated LFTs
Conditions present POLISHER DIAL
[place] lambda light chains
TORSTEN/CKI multiple etiologies including renal artery stenosis 60% on solitary kidney
Penis and right upper extremity edema/volume overload
Chronic hydronephrosis
History of Cystitis
Pericardial and pleural effusion
Coronary artery disease
Hypertension
Peripheral vascular disease
Renal cancer with history of left nephrectomy
Plan
Unresponsive, likely from coma
Denies pain at this time.
Pain/sedation: fent PRN, can likely stop sedation gtts
RASS goals: 0
Hemodynamically stable, not requiring pressors.
Cardiac history reviewed--HTN, CAD/PAD, BP elevated on arrival, maintain on cardene
Prior ECHO reviewed indicating normal function
Cards eval obtained
Monitor on telemetry
Oxygen needs: intubated, for airway protection
Vent setting reviewed: AC 500/16/50/5+
Prior history of lung disease: none known, rule out infection
Supplemental O2 as indicated to maintain sats > 89%
CXR/CT reviewed indicating stable findings compared to prior imaging
NPO, resume diet when able
Breakfast Manager recommendations
Aspiration precautions, HOB > 30 degrees
Speech therapy eval can be considered if at elevated risk
GI prophylaxis if indicated for mechanical ventilation >48 hours, prior history of GERD, stress ulcer formation in the critically ill
Elevated LFTs, follow serially
CT AP for abdominal pain but unremarkable
CKD--Creat at baseline, renal consult
Void trials
Follow urine output, critical I/Os
Replete electrolytes as needed
May need HD this admission
WBC elevated but could be due to seizure
Observe off antibiotics for now
Law culture
Follow fever trend, WBC count
Lactate elevated on admission, continue to trend until <2
CBC stable, bleeding at mouth, packed
DVT prophylaxis as assessed based on risk, including mechanical SCDs
Can transfuse if indicated for Hb <7, plt < 10
INR WNL
TSH 204, myxedema coma
Change IV solumedrol to HC, add IV synthroid
Consult endodrine, discussed care via TT
No prior known h/o diabetes or thyroid disease
Repeat labs today
Prognosis guarded
Diagnostic Data
Chest X-Ray: 05/14/24- Endotracheal tube with tip at the zeenat. Consider retracting 2 cm. Nonspecific small left basilar opacity which partially obscures the hemidiaphragm. This could represent a small effusion and/or airspace consolidation.
CT Scan: AP 05/14/24- IMPRESSION:
1. Significantly limited study secondary to diffuse volume overload with infiltration of the intra-abdominal fat and absence of oral and intravenous contrast. No gross acute abnormalities appreciated.
2. Small bilateral pleural effusions and likely small pericardial effusion.
3. Small volume of ascites with diffuse infiltration of the mesenteric fat.
4. Probable cholelithiasis.
5. Extensive aortoiliac atherosclerotic disease with femoral-femoral bypass graft.
Echo: 03/26/24- Normal left ventricular size, wall thickness and systolic function. Left ventricular ejection fraction is 55-60% by visual assessment. Normal right ventricular size and function. Limited valvular interrogation. Small to moderate
pericardial effusion located near right ventricle without evidence of hemodynamic compromise. Compared to prior from March 19, 2024, on indirect [id number] comparison findings appear similar.
PFT's:
Reports and relevant images were personally reviewed.
-----
Critical Care time 45 mins -- The patient is admitted for acute critical illness for the treatment of vital organ failure and/or prevention of further life-threatening conditions. Total care includes time spent in review of history, physical exam,
medications, hemodynamic/ventilator parameters, laboratory data, imaging and discussion with house staff, pharmacy, respiratory therapy, fish and wildlife warden, and nursing.
Subjective Dataa
Subjective Data
Date of Service:
Date of Service: May 15, 2024
Chief Complaint: Network Professional Follow Up
Subjective:
Remains critically ill, intubated
No events ON
Tongue is improved this AM
Objective Data
Data Reviewed
Vital Signs / I&O / Oxygen:
Vital Signs
Temp Pulse Resp BP Pulse Ox
98.1 F 64 14 116/75 100
05/15/24 03:49 05/15/24 05:45 05/15/24 05:45 05/15/24 05:00 05/15/24 04:00
Intake and Output
05/14/24 05/15/24 05/16/24
06:59 06:59 06:59
Intake Total 110.7 / 110.7
Output Total 165 / 165
Balance -54.3 / -54.3
SaO2 [A/C] 100
SaO2 100
Nasal Cannula flow liters per 5
minute
Physical Exam
General: Comfortable and Other (NAD)
HEENT: Normocephalic, Anicteric, Moist Mucous Membranes and Other (macroglossa, severe)
Cardiovascular: S1-S2, Regular Rhythm and Other (BL AKA)
Respiratory: Clear, Non-Labored Respirations and ET Tube
GI: Soft, Non Distended and Non Tender
Neurology: Lethargic and Non Verbal (sedated/intubated)
Skin: Warm and Dry
Labs/Micro/Reports
Lab Data
05/15/24 03:48
05/15/24 03:48
Laboratory Results
05/14/24 05/14/24 05/15/24
09:21 09:34 03:36
PT 17.8 H
INR 1.48
APTT 37.6 H
pH 7.49 H 7.54 H
pCO2 21 L 18 L*
pO2 365 H 138 H
HCO3 16.0 L 15.4 L*
O2 Delivery Level
Microbiology
05/14/24 13:12 Tracheal Aspirate Gram Stain - Preliminary
05/14/24 13:12 Urine Legionella Urinary Antigen - Final
Negative for Legionella pneumophila Serogroup 1 antigen.
A negative result does not rule out the possiblity of
Legionella infection due to other serogroups or species of
Legionella. Clinical correlation is recommended.
05/14/24 13:12 Urine Streptococcus pneumoniae Antigen (M - Final
Negative for Streptococcus pneumoniae antigen.
A negative result does not exclude infection with
Streptococcus pneumoniae. Clinical correlation is
recommended.
05/14/24 09:25 Nasal Swab Influenza Types A & B (NATE) - Final
Negative for Influenza A & B, NAAT
Negative results must be combined with clinical observations
and patient history.
Nucleic Acid Amplification test (NAAT)performed on the
[employer] platform.
[2024-05-15] MEDS: HEPARIN 5000 UNITS SC ×3 (07:30→23:47)
[2024-05-15] MEDS: LOW STRENGTH ASPIRIN 81 MG TUBE (07:30)
[2024-05-15] MEDS: KEPPRA 500 MG IV ×2 (07:30→20:55)
[2024-05-15] MEDS: LEVOTHROID 50 MCG IV (07:30)
[2024-05-15] MEDS: DIPRIVAN 100 IV (07:31)
[2024-05-15] MEDS: ALPHAGAN P 0.15% EYE DROPS 1 DROP BOTH EYES (07:40)
[2024-05-15] MEDS: TRUSOPT 2% OPHTHALMIC SOLUTION 1 DROP BOTH EYES ×2 (07:40→20:56)
--- NOTE | 2024-05-15 08:44 | PTCARENOTE ---
pt received from previous rn- pt opens eyes to name, does not follow simple commands. remains sedated on ventilator- see settings as charted. poc discussed with Dr. Be. tongue swelling decrease, bloody secretions continue. pt nsr with bbb, lungs
diminished. turned and repositioned, oral care provided. all care explained as given to pt. all safety precautions in place.
[2024-05-15] MEDS: SUBLIMAZE 100 IV (11:07)
--- NOTE | 2024-05-15 11:16 | W.PN.NEPH.PH ---
Today's Communication / Plan
-
see plan
Assessment/Plan
-
Impression:
HTN emergency
Suspected seizures with tongue bite
Acute respiratory failure -VDRF
Elevated troponin, most likely non-ischemic cardiac injury
Hx of pericardial effusion s/p pericardiocentesis
Recent abdominal discomfort
TORSTEN on CKD stage 5 -cr mid 4s in Mar
mixed acid base disorder-HAGMA and elevated lactate
Alkalemia with primary rep alkalosis
Macroglossia-severe hypothyroidism
Transaminitis
PAD s/p b/l AKA and femoral stents
Renal artery stenosis of solitary kidney-deemed not a candidate for renal artery revasc with poor vascular
Hx of prostate CA
HLD
Glaucoma
Hx of GIB
CHronic anemia
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
Stage 1 sacral wound
Diverticulosis
Coronary artery disease
Renal cancer with history of left nephrectomy
Plan:
A/w unresponsive and tongue bite from SZ
TORSTEN-increasing to 5.1 and oliguric , unable to place alicea, follow PVRs 380cc and no hydro on CT
suspect he may be CKD 5
HTN emergency-bp labile and off nicardene gtt
known right renal art stenosis but deemed not surgical candidate with poor vasculature and risks outweighs benefits
will consider vasc eval again if BP remains concern
He also with MGUS supposed to see heme out pt but never happened for BM biopsy
ok for diuresis as needed, high BNP, hold with alkalemia
ABG-PH 7.54 alkalemia primary resp in nature, would not treat met acidosis at this point
SZ-neuro follows, on Keppra
macroglossia-severe probably traumatic and hypothyroidism, on steroids and IV levothyroxine-endo follows
no emergent need of HD however likely need this admit
echo shows mod pericardial effusion and no change from prior
CT abd shows diffuse vol overload and no hydro of solitary kidney
d/w ICU, pt family Niece on phone in detail
CC time spent 40min
-
-
Date of Service: May 15, 2024
CC / HPI / ROS
-
Chief Complaint:
TORSTEN with CKD4
History of Present Illness:
cr up at 5.1, oliguric with out alicea \\could not insert alicea
bp labile off nicardene,
Ph 7.54, Poc2 18m hb stable 8.2, serum bicarb 16
wt no change
Review of Systems:
remains intubated and sedated , FIo2 40%
Labs
-
Labs:
WBC 10.7 10^3/uL (4.8-10.8) 05/15/24 03:48
RBC 2.74 10^6/uL (4.70-6.10) L 05/15/24 03:48
Hgb 8.2 g/dL (13.0-18.0) L 05/15/24 03:48
Hct 23.3 % (39.0-52.0) L 05/15/24 03:48
Plt Count 146 10^3/uL (130-400) 05/15/24 03:48
Sodium 140 mmol/L (135-145) 05/15/24 03:48
Potassium 3.9 mmol/L (3.5-5.1) 05/15/24 03:48
Chloride 105 mmol/L (98-107) 05/15/24 03:48
Carbon Dioxide 16 mmol/L (22-30) L 05/15/24 03:48
BUN 70 mg/dl (9-20) H 05/15/24 03:48
Creatinine 5.1 mg/dL (0.7-1.3) H* 05/15/24 03:48
eGFR 10.77 05/15/24 03:48
Glucose 111 mg/dl (70-99) H 05/15/24 03:48
Calcium 8.5 mg/dl (8.4-10.2) 05/15/24 03:48
Gxv-J-Fmqzxzmtugn Pept 5450 pg/ml 05/14/24 09:21
Albumin 3.3 g/dl (3.5-5.0) L 05/15/24 03:48
Physical Exam
-
Vital Signs:
Vital Signs
Temp Pulse Resp BP Pulse Ox
97.8 F 64 14 173/80 100
05/15/24 10:35 05/15/24 08:00 05/15/24 08:00 05/15/24 08:00 05/15/24 08:00
Cardiovascular:: Regular rate and rhythm
Respiratory:: Bilateral: Coarse
Lung Excursion:: Abnormal
Abdomen:: Nontender and Soft
Alicea Catheter: No
Other Findings::
bilat AKA stump edema noted
--- NOTE | 2024-05-15 11:28 | PTCARENOTE ---
assessment unchanged, poc discussed with Dr. Hernandez- notified of urine output and bladder scan of 389cc. fentanyl gtt started, prop decreased. turned and repositioned.
--- NOTE | 2024-05-15 12:01 | RESPNOTE ---
Respiratory: ETT retaped and repositioned to left side, oral airway reinserted dut to bite biting down on tongue and ETT. Tolerated well. Chest with bilateral equal excursion.
[2024-05-15 12:11] LABS: B.E. -4.6 mmol/L; HCO3 18.5 mmol/L (21-28); PCO2 26 mmHg (35-48); PO2 109 mmHg (83-108); pH 7.46 (7.35-7.45)
--- NOTE | 2024-05-15 13:00 | W.PN.HOSP.TC ---
Today's Communication/Plan
-
cont vent and sedation as per shirring machine operator
repeat labs in AM, might need HD
Assessment / Plan
Assessment / Plan
78yo M with PMHx of severe PAD s/p b/l AKA s/p fem-fem bypass, Hx of prostate CA, CAD s/p PCI, stage 1 sacral pressure wound, glaucoma, labile HTN, Hx of pericardial effusion, R solitary kidney, Hx of retroperitoneal fibrosis, renal artery stenosis,
[facility] with monoclonal spike brought by the family after he was found unresponsive with swallen and bleeding tongue, in ED found with significant HTN >220, intubated for protection of airways and treated for possible seizures,
later found to be in myxedema coma with TORSTEN on CKD
A/P:
#HTN emergency with subsequent seizures, causing significant tongue biting and impending airway compromise
Nicardipine drip
Intubated for protection of the airways on 05/14/24
Target normotension
restart home meds, place NG for medications
Sedation and vent mgmt as per shirring machine operator
Head CT with chronic changes and moderate dilation of ventricles and sulci
Tamara, neuro consult, eventual MRI brain
Seizure precautions
#Myxedema coma
Endo consult: Synthroid 50mcg IV then 75mcg PO and recheck TSH in 4 weeks
Hydrocortisone and IV Synthroid as per communication between shirring machine operator and endocrinology
#Small L lung basilar opacity on XR
most likely atelectasis
sputum Cx with GNB
shirring machine operator stopped Abx as no signs of infection: no leukocytosis, no fever
#Elevated troponin, most likely non-ischemic cardiac injury 2/2 airway compromize
#Hx of pericardial effusion s/p pericardiocentesis
with HTN - unlikely tamponade
Echo: similar to the one in Mar 2024: stable pericardial effusion without hemodynamic compromize, pleural effusion, mild to moderate AR and MR
Cardiology consult
serial troponin without further increase
Cont ASA
#Recent abdominal discomfort
CT abd without acute findings: cholelithiasis present, R lower kidney simple exophitic cyst, small amount of ascites, extensive ASCVD, diffuse anasarca
Lipase WNL
#TORSTEN on CKD stage 4 with HAGMA and elevated lactate
Nephrology consult: might need HD this admission
follow Cr
#Transaminitis
since 03/2004
hepatitis panel neg
follow LFT
#PAD s/p b/l AKA and femoral stents
#Renal artery stenosis
Previously followed with VascSx - deemed not a candidate for renal artery revasc with poor kidney injury
#MGUS
#Hx of prostate CA
#HLD
#Glaucoma
#Hx of GIB
#CHronic anemia
#Stage 1 sacral wound
#Diverticulosis
Follow up with Onc for outpatient BM biopsy as planned prior
COnt home meds
Wound care
Hgb stable forllow H&H
DVT ppx hep
Full code
I have spent at least 60min reviewing patient chart, test and imaging results, communication with consultants and family and direct patient care
Anticipated Discharge: > 48 hours
Subjective/Interval History
-
Date of Service: May 15, 2024
Objective Data
-
Labs:
Laboratory Results
05/15/24 05/15/24 05/15/24
03:36 03:48 11:57
WBC 10.7
Hgb 8.2 L
Hct 23.3 L
Plt Count 146
HCO3 15.4 L* 18.5 L
Sodium 140
Potassium 3.9
Chloride 105
Carbon Dioxide 16 L
BUN 70 H
Creatinine 5.1 H*
Glucose 111 H
Calcium 8.5
Total Bilirubin 0.6
AST 40
ALT 62 H
Alkaline Phosphatase 30 L
Vital Signs:
Vital Signs
Temp Pulse Resp BP Pulse Ox
97.8 F 56 14 147/76 100
05/15/24 10:35 05/15/24 11:00 05/15/24 11:00 05/15/24 11:00 05/15/24 11:29
I&O
05/14/24 05/15/24 05/16/24
06:59 06:59 06:59
Intake Total 110.7 / 118.3 47.5 / 47.5
Output Total 165 / 165 75 / 75
Balance -54.3 / -46.7 -27.5 / -27.5
Review of Systems
-
Unable to obtain full review of systems at this time due to: Patient Intubation
Physical Exam
-
General: Intubated
HEENT: Moist Mucous Membranes
Respiratory: Clear to Auscultation
Cardiac: Regular Rhythm
GI: Soft and Nondistended
Musculoskeletal: No Clubbing, No Cyanosis and Other (b/l LE AKA)
Neuro: Sedated
--- NOTE | 2024-05-15 14:38 | PTCARENOTE ---
Dr. Be aware of pt hr- hr between 47-50- per Dr. Be maintain hr above 40.
--- NOTE | 2024-05-15 17:53 | PTCARENOTE ---
pt given full bed bath/ linen change, moves arms, does not follow commands, propofol off, remains on fentanyl. assessment unchanged.
--- NOTE | 2024-05-15 18:00 | PTCARENOTE ---
two rings given to deb barker to take home.
[2024-05-15 19:17] LABS: Glucose - Point of Care 75 mg/dl (70-99)
--- NOTE | 2024-05-15 20:35 | PTCARENOTE ---
Assumed care of pt. approx 190.
Remains intubated/sedated, Prop gtt off, Fentanyl remains at 50mcg.
Arousing to tactile stimulation, no purposeful movements, Pupils =/r 3mm sluggish, full gaze, normocephalic, Severe Glossitis.
Normal sinus, Normothermic, Hypertensive 160s.
Decreased urine OP, cont. to bladder scan, monitor IO.
[2024-05-15] MEDS: XALATAN OPHTHALMIC SOLUTION 1 DROP BOTH EYES (21:36)
[2024-05-15] MEDS: NORVASC 10 MG PO (21:36)
--- NOTE | 2024-05-15 22:09 | PTCARENOTE ---
Pt. RASS decreasing, fentanyl gtt turned off will transition to PRNs.
--- NOTE | 2024-05-15 23:40 | PTCARENOTE ---
Pt. remains off sedation gtt.
arousable to tactile stim deep, does not follow commands, see neuro flowsheet.
Still no urine output, failed cath, bladder scanning.
[2024-05-16] VITALS (40 sets, daily range): BP systolic 114–200; BP diastolic 56–93; BMI 20.2
[2024-05-16] MEDS: APRESOLINE 5 MG IV ×3 (00:01→20:14)
[2024-05-16 00:17] LABS: Glucose - Point of Care 71 mg/dl (70-99)
[2024-05-16] MEDS: SUBLIMAZE 50 MCG IV ×4 (03:44→23:21)
[2024-05-16] MEDS: SUBLIMAZE 100 IV ×2 (03:48→23:19)
--- NOTE | 2024-05-16 03:54 | PTCARENOTE ---
Pt. async w/ vent, not following commands, non purposeful movements, placed back on fentanyl gtt.
pt. hypertensive, PRNs given. remains sinus khanh w/o ectopy.
[2024-05-16 04:07] LABS: % Basophils 0.1 % (0-2); % Immature Granulocytes 0.5 % (0-0.5); % Monocytes 5.5 % (1.7-9.3); % Neutrophils 91.9 % (42.2-75.2); Absolute Immature Granulocytes 0.1 10^3/uL (0-0.05); Absolute Lymphocytes 0.2 10^3/uL (1.2-3.4); Absolute Monocytes 0.5 10^3/uL (0.1-0.6); Absolute Neutrophils 8.5 10^3/uL (1.4-6.5); Hematocrit 22.2 % (39.0-52.0); Hemoglobin 7.6 g/dL (13.0-18.0); Mean Corp Hgb Conc. 34.2 g/dL (33.0-37.0); Mean Corpuscular Hgb 28.8 pg (27.0-31.0); Mean Corpuscular Volume 84.1 fL (80.0-94.0); Mean Platelet Volume 11.3 fL (7.4-10.4); Nucleated Red Blood Cells % 0 % (-); Platelet Count 148 10^3/uL (130-400); Red Blood Cell Count 2.64 10^6/uL (4.70-6.10); Red Cell Dist. Width 14.6 % (11.5-14.5); White Blood Cell Count 9.3 10^3/uL (4.8-10.8)
[2024-05-16 04:31] LABS: ALT (SGPT) 55 U/L (0-50); AST (SGOT) 36 U/L (17-59); Albumin 3.3 g/dl (3.5-5.0); Alkaline Phosphatase 26 U/L (38-126); Calcium 8.1 mg/dl (8.4-10.2); Carbon Dioxide 17 mmol/L (22-30); Chloride 105 mmol/L (98-107); Estimated Creatinine Clearance 8 ml/min; Glucose 103 mg/dl (70-99); Magnesium 1.9 mg/dl (1.6-2.3); Potassium 4.2 mmol/L (3.5-5.1); Sodium 140 mmol/L (135-145); Total Protein 5.8 g/dl (6.3-8.2); eGFR 9.63
[2024-05-16 04:44] LABS: Blood Urea Nitrogen 77 mg/dl (9-20); Total Bilirubin 0.4 mg/dl (0.2-1.3)
[2024-05-16] MEDS: SOLU-CORTEF 50 MG IV ×4 (05:06→23:20)
--- NOTE | 2024-05-16 05:59 | PTCARENOTE ---
Bladder scanned throughout night, last scanned for 474. Multiple caths failed.
[2024-05-16] MEDS: LEVOTHROID 50 MCG IV (07:18)
[2024-05-16] MEDS: KEPPRA 500 MG IV ×2 (07:18→20:14)
[2024-05-16] MEDS: HEPARIN 5000 UNITS SC (07:20)
[2024-05-16] MEDS: MIRALAX 17 GRAMS TUBE (07:21)
[2024-05-16] MEDS: LOW STRENGTH ASPIRIN 81 MG TUBE (07:21)
[2024-05-16] MEDS: TRUSOPT 2% OPHTHALMIC SOLUTION 1 DROP BOTH EYES ×2 (07:21→20:15)
[2024-05-16] MEDS: COREG 6.25 MG TUBE (07:21)
[2024-05-16] MEDS: ALPHAGAN P 0.15% EYE DROPS 1 DROP BOTH EYES (07:21)
--- NOTE | 2024-05-16 07:36 | W.PN.INTV ---
Today's Communication / Plan
Recommendations
Serratia in sputum, add CTX
No plans for SBT until macroglossia improved
Continue IV steroids/synthroid, repeat TSH
TORSTEN worsening, renal following, may need vascular input tomorrow per family request
Monitor NG output as well
Prognosis guarded
Assessment
-
Patient is an 78-year-old male with previous history of severe PAD status post bilateral AKA, bilateral femorofemoral bypass, history of prostate cancer, CAD status post PCI, sacral pressure wound, labile hypertension, history of right solitary
kidney, renal artery stenosis presenting after being found by family unresponsive, 'covered in blood.' Niece states that he went to bed the night before without any issue except he noted abdominal pain. She did not recall his mouth being swollen.
She found him unresponsive this a.m. blood on chest and across the room, stemming from his mouth. EMS called, on arrival he had witnessed seizure. In the ER, blood pressure greater than 220 he was intubated for airway protection, he had notable
tongue lacerations. TSH is 204. He has no prior history of thyroid disease. Admitted to ICU.
Acute myxedema coma
Unresponsiveness
Witnessed tonic clonic seizure en route
Severe macroglossia s/p intubation (originally with at least 1.5-2' protrusion from lips)
Hypertensive emergency >220 on arrival
Tongue laceration with oral bleeding
Metabolic acidosis
Lactic acidosis
Elevated LFTs
Serratia PNA
Continuous dark emesis from NG likely Ileus, CT AP neg
TORSTEN on CKD, likely to need HD
Conditions present QA INTERN
[place] lambda light chains
CKI 2/2 multiple etiologies including renal artery stenosis 60% on solitary kidney
Penis and right upper extremity edema/volume overload
Chronic hydronephrosis
History of Cystitis
Pericardial and pleural effusion
Coronary artery disease
Hypertension
Peripheral vascular disease
Renal cancer with history of left nephrectomy
Plan
Unresponsive, likely from coma
s/p witnessed seizure, now on keppra
Arousing more
Pain/sedation: fent PRN, fent and prop gtt continued
RASS goals: 0
Hemodynamically stable, not requiring pressors.
Cardiac history reviewed--HTN, CAD/PAD, BP elevated on arrival, maintain on cardene
Prior ECHO reviewed indicating normal function
Cards eval obtained
Monitor on telemetry
Oxygen needs: intubated, for airway protection
Vent setting reviewed: AC 500/16/50/5+
Prior history of lung disease: none known, rule out infection
Supplemental O2 as indicated to maintain sats > 89%
CXR/CT reviewed indicating stable findings compared to prior imaging
No plans for SBT until macroglossia resolves
NPO, resume diet when able
Continuous output from NG likely Ileus, CT AP negative
Regional Intermodal Truck Driver recommendations
Aspiration precautions, HOB > 30 degrees
Speech therapy eval can be considered if at elevated risk
GI prophylaxis if indicated for mechanical ventilation >48 hours, prior history of GERD, stress ulcer formation in the critically ill
Elevated LFTs, follow serially
TORSTEN on CKD--Creat at baseline, renal consult
Worsening, may need HD eventually this admission
Family will only proceed with Dr Virgen involved, can touch base with [facility] team Friday
Void trials
Follow urine output, critical I/Os
Replete electrolytes as needed
May need HD this admission
WBC elevated but could be due to seizure
Sputum+ serratia, will add CTX
History of PCN allergy
Follow fever trend, WBC count
Lactate elevated on admission, continue to trend until <2
CBC stable, bleeding at mouth, packed/resolved
DVT prophylaxis as assessed based on risk, including mechanical SCDs
Can transfuse if indicated for Hb <7, plt < 10
INR WNL
TSH 204, myxedema coma
Continue hydrocortisone, IV synthroid
Appreciate endodrine recs, discussed care via TT
No prior known h/o diabetes or thyroid disease
Repeat labs, TSH declining 204 -> 172 -> repeat pending
Prognosis guarded
Diagnostic Data
Chest X-Ray: 05/14/24- Endotracheal tube with tip at the zeenat. Consider retracting 2 cm. Nonspecific small left basilar opacity which partially obscures the hemidiaphragm. This could represent a small effusion and/or airspace consolidation.
CT Scan: AP 05/14/24- IMPRESSION:
1. Significantly limited study secondary to diffuse volume overload with infiltration of the intra-abdominal fat and absence of oral and intravenous contrast. No gross acute abnormalities appreciated.
2. Small bilateral pleural effusions and likely small pericardial effusion.
3. Small volume of ascites with diffuse infiltration of the mesenteric fat.
4. Probable cholelithiasis.
5. Extensive aortoiliac atherosclerotic disease with femoral-femoral bypass graft.
Echo: 03/26/24- Normal left ventricular size, wall thickness and systolic function. Left ventricular ejection fraction is 55-60% by visual assessment. Normal right ventricular size and function. Limited valvular interrogation. Small to moderate
pericardial effusion located near right ventricle without evidence of hemodynamic compromise. Compared to prior from March 19, 2024, on indirect [id number] comparison findings appear similar.
PFT's:
Reports and relevant images were personally reviewed.
-----
Critical Care time 45 mins -- The patient is admitted for acute critical illness for the treatment of vital organ failure and/or prevention of further life-threatening conditions. Total care includes time spent in review of history, physical exam,
medications, hemodynamic/ventilator parameters, laboratory data, imaging and discussion with house staff, pharmacy, respiratory therapy, retail banker, and nursing.
Subjective Dataa
Subjective Data
Date of Service:
Date of Service: May 16, 2024
Chief Complaint: Sulky Driver Follow Up
Subjective:
Remains intubated, tongue improving but not yet normalized
Malodorous oral secretions
Continues with dark output from NGT
Objective Data
Data Reviewed
Vital Signs / I&O / Oxygen:
Vital Signs
Temp Pulse Resp BP Pulse Ox
97.9 F 51 14 138/61 100
05/16/24 07:00 05/16/24 07:15 05/16/24 07:15 05/16/24 07:21 05/16/24 07:17
Intake and Output
05/15/24 05/16/24 05/17/24
06:59 06:59 06:59
Intake Total 110.7 / 118.3 109.0 / 111.5 2.5 / 2.5
Output Total 165 / 165 125 / 125 450 / 450
Balance -54.3 / -46.7 -16.0 / -13.5 -447.5 / -447.5
SaO2 [A/C] 100
SaO2 100
Nasal Cannula flow liters per 5
minute
Physical Exam
General: Comfortable and Other (NAD)
HEENT: Normocephalic, Anicteric, Moist Mucous Membranes, Other (macroglossia, severe--improving slowly) and Other (malodorous oral care)
Cardiovascular: S1-S2, Regular Rhythm and Other (BL AKA)
Respiratory: Clear, Non-Labored Respirations and ET Tube
GI: Soft, Non Distended and Non Tender
Neurology: Lethargic and Non Verbal (sedated/intubated)
Skin: Warm and Dry
Labs/Micro/Reports
Lab Data
05/16/24 03:30
05/16/24 03:30
Laboratory Results
05/15/24
11:57
pH 7.46 H
pCO2 26 L
pO2 109 H
HCO3 18.5 L
O2 Delivery Level
Microbiology
05/14/24 13:12 Tracheal Aspirate Respiratory Culture - Preliminary
Gram negative bacilli
05/14/24 13:12 Tracheal Aspirate Gram Stain - Preliminary
05/14/24 11:34 Nose MRSA Screen - Final
No Methicillin Resistant Staphylococcus aureus isolated.
05/14/24 11:12 Blood/Venous Blood Culture - Preliminary
No Growth in 24 hours- Final report to follow
05/14/24 09:21 Blood/Venous Blood Culture - Preliminary
No Growth in 24 hours- Final report to follow
05/14/24 13:12 Urine Legionella Urinary Antigen - Final
Negative for Legionella pneumophila Serogroup 1 antigen.
A negative result does not rule out the possiblity of
Legionella infection due to other serogroups or species of
Legionella. Clinical correlation is recommended.
05/14/24 13:12 Urine Streptococcus pneumoniae Antigen (M - Final
Negative for Streptococcus pneumoniae antigen.
A negative result does not exclude infection with
Streptococcus pneumoniae. Clinical correlation is
recommended.
05/14/24 09:25 Nasal Swab Influenza Types A & B (NATE) - Final
Negative for Influenza A & B, NAAT
Negative results must be combined with clinical observations
and patient history.
Nucleic Acid Amplification test (NAAT)performed on the
[employer] platform.
--- NOTE | 2024-05-16 08:00 | PTCARENOTE ---
pt received from previous rn- ett to vent- see settings as charted. pt opens eyes to name, attempts to grab at tubes, remains restrained for safety, fentanyl bolus given for cpot. pt not following commands. remains sinus khanh on the monitor. tongue
swollen +2, bloody secretions continue. Dr. Be and Dr. Hernandez aware of pt retaining urine- urology consult placed. Dr. Be at bedside and aware of increase in ngt output. all safety precautions in place.
[2024-05-16] MEDS: DESENEX/MITRAZOL/ZEASORB 1 APPLIC TOPICAL ×2 (08:25→20:13)
--- NOTE | 2024-05-16 08:31 | PTCARENOTE ---
pt received from previous rn- ett to vent- see settings as charted. pt opens eyes to name, attempts to grab at tubes, remains restrained for safety, fentanyl bolus given for cpot. pt not following commands. remains sinus khanh on the monitor. tongue
swollen +2, bloody secretions continue. Dr. Be and Dr. Hernandez aware of pt retaining urine- urology consult placed. all safety precautions in place.
[2024-05-16 09:07] LABS: NT-proBNP 6600 pg/ml
--- NOTE | 2024-05-16 10:21 | CONS.URO ---
Consultation
-
Date/Time Consultation Performed: 05/16/2024 955
Performing Provider: Victor M
Reason for Consultation: difficult Stevenson
Medical History
History of Present Illness
78 yo AA male brought by the family to ED after he was found unresponsive with swollen, bleeding tongue, in ED found with significant HTN >220, intubated for protection of airways and treated for possible seizures. IN SUPERVISOR OPERATIONS x4 were unable to place
Stevenson; with condom catheter, urine output has been modest over past 12 hours
Past Medical History
Past Medical History: Other (severe PAD s/p b/l AKA s/p fem-fem bypass, Hx of prostate CA, CAD s/p PCI, stage 1 sacral pressure wound, glaucoma, labile HTN, Hx of pericardial effusion, R solitary kidney, Hx of retroperitoneal fibrosis, renal artery
stenosis, recent formerly [facility] protein with monoclonal spike )
Past Surgical History: Other (Left Nephrectomy, left lower artery bypass surgery, Left AKA, Right transfemoral amputation)
Social History
Unable to obtain full social history at this time due to: Patient Intubation
Family History
Family History: Reviewed & Not Pertinent
Allergies/Home Medications
Allergies
Allergy/AdvReac Type Severity Reaction Status Date / Time
Hydantoins Allergy Severe Rash Verified 05/14/24 08:09
penicillin G Allergy Severe liver Verified 05/14/24 08:09
damage,
red hands
and feet
Penicillins Allergy Severe liver Verified 05/14/24 08:09
damage,
red hands
and feet
phenytoin Allergy Severe Rash Verified 05/14/24 08:09
ciprofloxacin Allergy Intermediate Itching Verified 05/14/24 08:09
Iodinated Contrast Media Allergy Intermediate chills;trem Verified 05/14/24 08:09
[Iodinated Contrast- Oral ors
and IV Dye]
tetanus and diphtheria Allergy Intermediate Swelling, Verified 05/14/24 08:09
toxoids Pain at
site
Home Medications
�Medication �Instructions �Recorded �Confirmed �Type
aspirin 81 mg tablet,delayed 81 mg PO DAILY Heart 03/26/24 05/14/24 Rx
release disease/condition #0 tabs
calcitriol 0.25 mcg capsule 0.5 mcg PO DAILY Kidney Disease 03/26/24 05/14/24 History
carvedilol 6.25 mg tablet 6.25 mg PO BID Blood pressure #60 03/26/24 05/14/24 Rx
tabs
nifedipine 30 mg tablet,extended 60 mg (2 x 30 mg) PO HS Heart 03/26/24 05/14/24 Rx
release disease/condition #90 tabs
rosuvastatin 10 mg tablet 10 mg PO DAILY High cholesterol #0 03/26/24 05/14/24 Rx
tabs
sodium bicarbonate 650 mg tablet 650 mg PO TID #90 tabs 03/26/24 05/14/24 Rx
tamsulosin 0.4 mg capsule 0.4 mg PO HS Urinary issue #0 caps 03/26/24 05/14/24 Rx
brimonidine 0.15 % eye drops 1 drp BOTH EYES DAILY Eye Condition 05/14/24 05/14/24 History
dorzolamide 2 % eye drops 1 drp BOTH EYES BID Eye Condition 05/14/24 05/14/24 History
furosemide 40 mg tablet (Lasix) 40 mg PO DAILY Fluid 05/14/24 05/14/24 History
Retention/Swelling
latanoprost 0.005 % eye drops 1 drp BOTH EYES HS Eye condition 05/14/24 05/14/24 History
miconazole nitrate 2 % topical 1 applic topical BID groin 05/14/24 05/14/24 History
powder (Miconazorb AF)
Physical Exam
Vital Signs
Vital Signs
Temp Pulse Resp BP Pulse Ox
97.9 F 48 14 142/64 100
05/16/24 07:00 05/16/24 08:00 05/16/24 08:00 05/16/24 08:00 05/16/24 07:54
Lab / Testing Results
Laboratory Results
05/16/24 03:30
05/16/24 03:30
Physical Exam
intubated AA male
Genito-urinary: Other (Phallus: Phimosis)
Assessment / Plan
-
Phimosis precluding Stevenson placement.
Phallus prepped with Betadine
10 ml 2% lidocaine use to create penile block
dorsal slit created revealing glans -- 3.0 silk sutures used to reapproximate skin edges
16 Fr Stevenson placed with prompt return of yellow urine
Data Reviewed
-
Old Records: Reviewed
[2024-05-16] MEDS: LIDOCAINE URO-JET 2% 1 SYRINGE TOPICAL (10:26)
--- NOTE | 2024-05-16 10:57 | W.PN.NEPH.PH ---
Today's Communication / Plan
-
follow labs
monitor UOP with alicea
Assessment/Plan
-
Impression:
HTN emergency
Suspected seizures with tongue bite
Acute respiratory failure -VDRF
Elevated troponin, most likely non-ischemic cardiac injury
Hx of pericardial effusion s/p pericardiocentesis
Recent abdominal discomfort
TORSTEN on CKD stage 5 -cr mid 4s in Mar
mixed acid base disorder-HAGMA and elevated lactate
Alkalemia with primary rep alkalosis
Macroglossia-severe hypothyroidism
Transaminitis
PAD s/p b/l AKA and femoral stents
Renal artery stenosis of solitary kidney-deemed not a candidate for renal artery revasc with poor vascular
Hx of prostate CA
HLD
Glaucoma
Hx of GIB
CHronic anemia
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
Stage 1 sacral wound
Diverticulosis
Coronary artery disease
Renal cancer with history of left nephrectomy
He also with MGUS supposed to see heme out pt but never happened for BM biopsy
Plan:
A/w unresponsive and tongue bite from SZ
TORSTEN-increasing to 5.6 and oligoanuric , unable to place alicea, follow PVRs 500cc and no hydro on CT
Appt input placing alicea
suspect he may be CKD 5
echo shows mod pericardial effusion and no change from prior
CT abd shows diffuse vol overload and no hydro of solitary kidney
HTN emergency-bp labile, back on BB-monitor HR, on Amlodipine
known right renal art stenosis but deemed not surgical candidate with poor vasculature and risks outweighs benefits
will consider vasc eval again if BP remains concern
ok for diuresis as needed
SZ-neuro follows, on Keppra
macroglossia-severe probably traumatic and hypothyroidism, on steroids and IV levothyroxine-endo follows
no emergent need of HD however likely need in next 1-2days
called and left VM on Niece phone
CC time spent 31min
-
-
Date of Service: May 16, 2024
CC / HPI / ROS
-
Chief Complaint:
TORSTEN with CKD4
History of Present Illness:
cr up at 5.6, oligoanuric with out alicea \\could not insert alicea
bp labile back on CCB, Amlodpine
serum bicarb 17, last Ph 7.46
wt no change
hb low 7.6
Review of Systems:
remains intubated and sedated , FIo2 30%
Labs
-
Labs:
WBC 9.3 10^3/uL (4.8-10.8) 05/16/24 03:30
RBC 2.64 10^6/uL (4.70-6.10) L 05/16/24 03:30
Hgb 7.6 g/dL (13.0-18.0) L 05/16/24 03:30
Hct 22.2 % (39.0-52.0) L 05/16/24 03:30
Plt Count 148 10^3/uL (130-400) 05/16/24 03:30
Sodium 140 mmol/L (135-145) 05/16/24 03:30
Potassium 4.2 mmol/L (3.5-5.1) 05/16/24 03:30
Chloride 105 mmol/L (98-107) 05/16/24 03:30
Carbon Dioxide 17 mmol/L (22-30) L 05/16/24 03:30
BUN 77 mg/dl (9-20) H 05/16/24 03:30
Creatinine 5.6 mg/dL (0.7-1.3) H* 05/16/24 03:30
eGFR 9.63 05/16/24 03:30
Glucose 103 mg/dl (70-99) H 05/16/24 03:30
Calcium 8.1 mg/dl (8.4-10.2) L 05/16/24 03:30
Gfn-W-Dvqgiihfmhu Pept 6600 pg/ml 05/16/24 03:30
Albumin 3.3 g/dl (3.5-5.0) L 05/16/24 03:30
Physical Exam
-
Vital Signs:
Vital Signs
Temp Pulse Resp BP Pulse Ox
97.9 F 48 14 142/64 100
05/16/24 07:00 05/16/24 08:00 05/16/24 08:00 05/16/24 08:00 05/16/24 07:54
Cardiovascular:: Regular rate and rhythm
Respiratory:: Bilateral: CTA (decreased anteriolry)
Lung Excursion:: Abnormal
Abdomen:: Nontender and Soft
Alicea Catheter: No
Other Findings::
bilat AKA stump clean. gen edema noted
[2024-05-16 11:33] LABS: Creatine Phosphokinase 677 U/L (55-170)
[2024-05-16] MEDS: ROCEPHIN 1000 MG IV (11:36)
[2024-05-16] MEDS: XYLOCAINE 1% 20 ML S (11:36)
[2024-05-16] MEDS: STERILE WATER FOR INJECTION 10 ML IV (11:36)
[2024-05-16 11:52] LABS: Glucose - Point of Care 83 mg/dl (70-99)
--- NOTE | 2024-05-16 11:58 | PTCARENOTE ---
alicea inserted by Dr. Dow- yellow urine draining. assessment unchanged. frequent oral care provided, turned and repositioned.
--- NOTE | 2024-05-16 12:39 | W.PN.HOSP.TC ---
Addendum entered and electronically signed by Clark Contreras MD 05/16/24 12:53:
#Phimosis
Urology placed alicea after small incision
Original Note:
Today's Communication/Plan
-
cont IV synthroid
follow CBC
Assessment / Plan
Assessment / Plan
78yo M with PMHx of severe PAD s/p b/l AKA s/p fem-fem bypass, Hx of prostate CA, CAD s/p PCI, stage 1 sacral pressure wound, glaucoma, labile HTN, Hx of pericardial effusion, R solitary kidney, Hx of retroperitoneal fibrosis, renal artery stenosis,
recent bentrue-rogers protein with monoclonal spike brought by the family after he was found unresponsive with swallen and bleeding tongue, in ED found with significant HTN >220, intubated for protection of airways and treated for possible seizures,
later found to be in myxedema coma with TORSTEN on CKD
A/P:
#HTN emergency with subsequent seizures, causing significant tongue biting and impending airway compromise
Nicardipine drip
Intubated for protection of the airways on 05/14/24
Target normotension
restart home meds, place NG for medications
Sedation and vent mgmt as per canine deputy
Head CT with chronic changes and moderate dilation of ventricles and sulci
Kejermainera, neuro consult, eventual MRI brain
Seizure precautions
#Myxedema coma
Endo consult: Synthroid 50mcg IV then 75mcg PO and recheck TSH in 4 weeks
Hydrocortisone and IV Synthroid as per communication between canine deputy and endocrinology
#Small L lung basilar opacity on XR
most likely atelectasis
sputum Cx with GNB
canine deputy stopped Abx as no signs of infection: no leukocytosis, no fever
#Elevated troponin, most likely non-ischemic cardiac injury 2/2 airway compromise
#Hx of pericardial effusion s/p pericardiocentesis
with HTN - unlikely tamponade
Echo: similar to the one in Mar 2024: stable pericardial effusion without hemodynamic compromize, pleural effusion, mild to moderate AR and MR
Cardiology consult
serial troponin without further increase
Cont ASA
#Recent abdominal discomfort
CT abd without acute findings: cholelithiasis present, R lower kidney simple exophitic cyst, small amount of ascites, extensive ASCVD, diffuse anasarca
Lipase WNL
#TORSTEN on CKD stage 4 with HAGMA and elevated lactate
Nephrology consult: might need HD this admission
follow Cr
#Transaminitis
since 03/2004
hepatitis panel neg
follow LFT
#Elevated CPK not in rhabdomiolysis range
possibly 2/2 hypothyroidism
#Anemia of chonic disease
Epo as per Nephro
Exacerbated by acute blood loss from tongue bleeding - follow Hgb abd transfuse to keep > 7
Check FOBT
#PAD s/p b/l AKA and femoral stents
#Renal artery stenosis
Previously followed with VascSx - deemed not a candidate for renal artery revasc with poor kidney injury
#MGUS
#Hx of prostate CA
#HLD
#Glaucoma
#Hx of GIB
#CHronic anemia
#Stage 1 sacral wound
#Diverticulosis
Follow up with Onc for outpatient BM biopsy as planned prior
COnt home meds
Wound care
Hgb stable forllow H&H
DVT ppx hep
Full code
I have spent at least 55min reviewing patient chart, test and imaging results, communication with consultants and family and direct patient care
Anticipated Discharge: > 48 hours
Subjective/Interval History
-
Date of Service: May 16, 2024
Objective Data
-
Labs:
Laboratory Results
05/16/24
03:30
WBC 9.3
Hgb 7.6 L
Hct 22.2 L
Plt Count 148
Sodium 140
Potassium 4.2
Chloride 105
Carbon Dioxide 17 L
BUN 77 H
Creatinine 5.6 H*
Glucose 103 H
Calcium 8.1 L
Total Bilirubin 0.4
AST 36
ALT 55 H
Alkaline Phosphatase 26 L
Vital Signs:
Vital Signs
Temp Pulse Resp BP Pulse Ox
97.5 F 48 14 128/58 100
05/16/24 11:00 05/16/24 12:00 05/16/24 12:00 05/16/24 12:00 05/16/24 12:00
I&O
05/15/24 05/16/24 05/17/24
06:59 06:59 06:59
Intake Total 110.7 / 118.3 109.0 / 111.5 325.0 / 325.0
Output Total 165 / 165 125 / 125 770 / 770
Balance -54.3 / -46.7 -16.0 / -13.5 -445.0 / -445.0
Review of Systems
-
Unable to obtain full review of systems at this time due to: Patient Intubation
Physical Exam
-
General: Intubated
HEENT: Other (macroglossia)
Respiratory: Clear to Auscultation
Cardiac: Regular Rhythm
GI: Soft
Musculoskeletal: No Clubbing, No Cyanosis and No Edema
Neuro: Awake, Alert, Oriented and AO x 3
Psych: Calm
--- NOTE | 2024-05-16 14:28 | CM ---
CM following re: discharge planning.
Reviewed pt's chart, met with pt. Pt's sister and pt's niece at bedside.
Per chart review, pt remains intubated, continue supportive care.
Pt lives with niece in a 2SH and niece stated she is next of kin. Pt's niece described the pt as independent in all areas JOB DEVELOPMENT SPECIALIST.
D/C plan: uncertain at this time and will depend on pt's progress.
CM will follow with discharge plan updates as hospitalization progresses
[2024-05-16 16:12] LABS: Hematocrit 19.4 % (39.0-52.0); Hemoglobin 6.7 g/dL (13.0-18.0)
--- NOTE | 2024-05-16 16:15 | PTCARENOTE ---
pt continues to open eyes but not follow commands, cpot 0- remains on fentanyl gtt at 50mcg/hr. turned and repositioned, continued with frequent oral care. assessment unchanged.
[2024-05-16] MEDS: HEPARIN SC (16:28)
--- NOTE | 2024-05-16 16:34 | W.PN.UPDATE ---
Update Note
Progress Note Update
Hgb continued to drop, NG output showing dark output, concern for UGIB with prednisone, intubation
Consent obtained for blood transfusion
1unit PRBC ordered
PPI bolus+drip
hold anticoagulation
Hold antihypertensives, if BP continues to elevate - use Nicardipine drip, since would prefer short acting medication
GI consult placed and litigation attorney associate category consultant informed
[2024-05-16] MEDS: PROTONIX 100 IV (17:10)
[2024-05-16] MEDS: PROTONIX IV 80 MG IV (17:10)
[2024-05-16 17:24] LABS: Glucose - Point of Care 92 mg/dl (70-99)
--- NOTE | 2024-05-16 19:42 | PTCARENOTE ---
Assumed care of pt. approx. 1900.
Decreasing H/H, 1 U PRBC transfusing currently, serial H/H ordered.
Vent settings unchanged from previous shift see flowsheet.
Macroglossia improving, no purposeful movements, does not follow basic commands.
Remains sinus khanh, Hypertensive within parameters, normothermic.
Stevenson placed by urology, oliguric.
--- NOTE | 2024-05-16 20:45 | PTCARENOTE ---
Pt. having sustained hypertension despite PRNs, Rc gonzalez added.
[2024-05-16] MEDS: XALATAN OPHTHALMIC SOLUTION 1 DROP BOTH EYES (21:04)
[2024-05-16 21:35] LABS: Hematocrit 20.6 % (39.0-52.0); Hemoglobin 7.1 g/dL (13.0-18.0)
[2024-05-16] MEDS: CARDENE 200 IV (23:05)
[2024-05-17] VITALS (78 sets, daily range): BP systolic 116–198; BP diastolic 58–78; BMI 20.1
--- NOTE | 2024-05-17 00:08 | PTCARENOTE ---
Second unit PRBC transfusing, trending H/H,
NG tube no output through shift.
Normotensive, off cardene.
Oliguric, alicea patent.
[2024-05-17 01:54] LABS: Hematocrit 27.1 % (39.0-52.0); Hemoglobin 9.4 g/dL (13.0-18.0)
[2024-05-17] MEDS: PROTONIX 100 IV ×2 (03:24→15:04)
[2024-05-17 04:25] LABS: % Basophils 0.2 % (0-2); % Immature Granulocytes 0.3 % (0-0.5); % Lymphocytes 2.6 % (20.5-51.1); % Monocytes 7.5 % (1.7-9.3); % Neutrophils 89.4 % (42.2-75.2); Absolute Lymphocytes 0.2 10^3/uL (1.2-3.4); Absolute Monocytes 0.7 10^3/uL (0.1-0.6); Absolute Neutrophils 8.3 10^3/uL (1.4-6.5); Hematocrit 27.5 % (39.0-52.0); Hemoglobin 9.5 g/dL (13.0-18.0); Mean Corp Hgb Conc. 34.5 g/dL (33.0-37.0); Mean Corpuscular Hgb 29.1 pg (27.0-31.0); Mean Corpuscular Volume 84.4 fL (80.0-94.0); Mean Platelet Volume 10.7 fL (7.4-10.4); Nucleated Red Blood Cells % 0 % (-); Platelet Count 128 10^3/uL (130-400); Red Blood Cell Count 3.26 10^6/uL (4.70-6.10); Red Cell Dist. Width 14.4 % (11.5-14.5); White Blood Cell Count 9.3 10^3/uL (4.8-10.8)
[2024-05-17 04:49] LABS: ALT (SGPT) 47 U/L (0-50); AST (SGOT) 37 U/L (17-59); Albumin 3.3 g/dl (3.5-5.0); Alkaline Phosphatase 26 U/L (38-126); Blood Urea Nitrogen 87 mg/dl (9-20); Calcium 7.7 mg/dl (8.4-10.2); Carbon Dioxide 16 mmol/L (22-30); Chloride 105 mmol/L (98-107); Estimated Creatinine Clearance 7 ml/min; Glucose 100 mg/dl (70-99); Potassium 4.4 mmol/L (3.5-5.1); Sodium 140 mmol/L (135-145); Total Bilirubin 0.7 mg/dl (0.2-1.3); Total Protein 5.7 g/dl (6.3-8.2); Triglycerides 175 mg/dl (10-149); eGFR 9.04
--- NOTE | 2024-05-17 05:18 | PTCARENOTE ---
No change in Pt. assessment.
[2024-05-17] MEDS: SOLU-CORTEF 50 MG IV ×3 (05:29→17:31)
[2024-05-17] MEDS: SUBLIMAZE 50 MCG IV (06:20)
--- NOTE | 2024-05-17 06:23 | PTCARENOTE ---
Pt attempted to self extubate, fighting vent, Fent bolus given, gtt not increased due to neuro exams.
--- NOTE | 2024-05-17 07:00 | CON.GI ---
Addendum entered and electronically signed by Michelle Saavedra DO 05/17/24 10:48:
Patient seen and examined independently of CLAUDY. I agree with her note with my additions below
Kb is a very sick 78-year-old male with multiple medical issues but was found down unresponsive on 05/14/2024 thought to be secondary to possible seizure where he bit his tongue and was covered in blood as well as hypertensive emergency, myxedema
coma, acute kidney injury, elevated troponin who with an NG tube with no PPI started having dark output. He did have a drop in his hemoglobin and GI was consulted. Patient is hemodynamically stable blood pressure 166/75 with a pulse of 63,
hemoglobin is 9.5 platelet of 128, INR 1.48 not on any anticoagulation, BUN is 87 creatinine is 6, total bilirubin is 0.7 patient has a history of prostate cancer and has colonic angioectasias that have been treated with APC in the past. Patient
has never had an EGD.
# Coffee-ground emesis and NG tube is expected in the setting of biting his tongue with a significant bleed.
-- He is stable, in the setting of his multiple active issues there is no reason to do an urgent EGD patient responded well to 2 units of blood
-- I started him on a PPI drip last night since he was not on PPI
-- Continue the PPI drip for now, treat the tongue laceration, monitor hemoglobin with supportive transfusions as needed
-- Will hold off on any scoping for now. Will monitor peripherally
Addendum entered and electronically signed by CLAUDY Hall 05/17/24 09:34:
I updated deb Calderon. She reports + abdominal discomfort night prior to admission but ate dinner without vomiting. Hx Ecotrin use but no other NSAID use. no family hx GI issues and she was unsure about any prior EGD in past.
Original Note:
Consultation
-
Date/Time Consultation Requested: 05/16/24 1640
Date/Time Consultation Performed: 05/17/24 0730
Requesting Provider: Clark Contreras MD
Performing Provider: CLAUDY Cedillo, Michelle Saavedra,
Reason for Consultation: +UGI bleed
Medical History
Chief Complaint / HPI
Chief Complaint: coffee ground emesis in NGT
History of Present Illness:
Pt is an 78yo with multiple medical problems- prior GI bleeding 2018 with noted multiple colonic AVM's in rectum treated with APC therapy, CAD wit prior PCI, PAD with prior fem-fem bypass, HTN, prostate CA, sacral decub, retroperitoneal fibrosis,
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
with drop in hbg and dark NGT output with concern for UGI bleed. No prior EGD in [facility] but last colonoscopy x 2 in 2018 with noted GI bleeding and multiple colonic AVM's in rectum treated with APC
Pt currently sedated with Fentanyl with limited review of systems. Per chart noted with abdominal pain prior to unresponsiveness and noted with swollen tongue and blood all over him prior to admission.
Past Medical History
Past Medical History: CAD, Cancer (prostate CA), HTN and Other (PAD, sacral decub, glaucoma, pericardial effusion, solitary kidney, retroperitoneal fibrosis, RA stenosis , Bence-rodríguez protein with monoclonal spike, MGUS )
Past Surgical History: Cardiac (PCI) and Other (AKS, s/p fem-fem bypass)
Social History
Tobacco: Non-Smoker (per ER)
Alcohol: None (per ER)
Drug: None (per ER)
Living: With Family
Employment: Retired (per ER)
Family History
Family History: Unable to Obtain
Allergies / Home Medications
Allergy/AdvReac Type Severity Reaction Status Date / Time
Hydantoins Allergy Severe Rash Verified 05/14/24 08:09
penicillin G Allergy Severe liver Verified 05/14/24 08:09
damage,
red hands
and feet
Penicillins Allergy Severe liver Verified 05/14/24 08:09
damage,
red hands
and feet
phenytoin Allergy Severe Rash Verified 05/14/24 08:09
ciprofloxacin Allergy Intermediate Itching Verified 05/14/24 08:09
Iodinated Contrast Media Allergy Intermediate chills;trem Verified 05/14/24 08:09
[Iodinated Contrast- Oral ors
and IV Dye]
tetanus and diphtheria Allergy Intermediate Swelling, Verified 05/14/24 08:09
toxoids Pain at
site
�Medication �Instructions �Recorded
aspirin 81 mg tablet,delayed 81 mg PO DAILY Heart 03/26/24
release disease/condition #0 tabs
calcitriol 0.25 mcg capsule 0.5 mcg PO DAILY Kidney Disease 03/26/24
carvedilol 6.25 mg tablet 6.25 mg PO BID Blood pressure #60 03/26/24
tabs
nifedipine 30 mg tablet,extended 60 mg (2 x 30 mg) PO HS Heart 03/26/24
release disease/condition #90 tabs
rosuvastatin 10 mg tablet 10 mg PO DAILY High cholesterol #0 03/26/24
tabs
sodium bicarbonate 650 mg tablet 650 mg PO TID #90 tabs 03/26/24
tamsulosin 0.4 mg capsule 0.4 mg PO HS Urinary issue #0 caps 03/26/24
brimonidine 0.15 % eye drops 1 drp BOTH EYES DAILY Eye Condition 05/14/24
dorzolamide 2 % eye drops 1 drp BOTH EYES BID Eye Condition 05/14/24
furosemide 40 mg tablet (Lasix) 40 mg PO DAILY Fluid 05/14/24
Retention/Swelling
latanoprost 0.005 % eye drops 1 drp BOTH EYES HS Eye condition 05/14/24
miconazole nitrate 2 % topical 1 applic topical BID groin 05/14/24
powder (Miconazorb AF)
Review of Systems
-
Unable to obtain full review of systems at this time due to: Patient Intubation (and sedated ) and Patient Non Verbal
History Source: Patient, Family (unable to reach family) and Other (nursing staff )
Abdomen/GI: Reports Abdominal Pain (?prior to admission and noted with increased bleeding when found down )
Vital Signs
Temp Pulse Resp BP Pulse Ox
97.6 F 63 14 166/75 99
05/17/24 03:14 05/17/24 05:45 05/17/24 05:45 05/17/24 05:45 05/17/24 05:45
Physical Exam
Exam
General: Other (ill appearing, intubated, sedated )
HEENT: Normocephalic, Anicteric and Other (tongue swelling with dried blood)
Respiratory: Clear
Cardiac: Regular Rhythm
GI: Soft, Non Distended, Tender (limited exam with sedation) and Other (NGT with coffee ground emesis and bile but also more blood from mouth suction with tongue bleeding)
Musculoskeletal: No Clubbing, No Cyanosis and Other (b/l amp)
Skin: Warm and Dry
Neuro: Awake and Alert
Psych: Calm
Results
WBC 9.3 10^3/uL (4.8-10.8) 05/17/24 04:08
Hgb 9.5 g/dL (13.0-18.0) L 05/17/24 04:08
Hct 27.5 % (39.0-52.0) L 05/17/24 04:08
MCV 84.4 fL (80.0-94.0) 05/17/24 04:08
Plt Count 128 10^3/uL (130-400) L 05/17/24 04:08
Absolute Neuts (auto) 8.3 10^3/uL (1.4-6.5) H 05/17/24 04:08
PT 17.8 Sec (11.4-14.6) H 05/14/24 09:21
INR 1.48 05/14/24 09:21
APTT 37.6 Sec (23.4-35.0) H 05/14/24 09:21
Sodium 140 mmol/L (135-145) 05/17/24 04:08
Potassium 4.4 mmol/L (3.5-5.1) 05/17/24 04:08
Chloride 105 mmol/L (98-107) 05/17/24 04:08
Carbon Dioxide 16 mmol/L (22-30) L 05/17/24 04:08
BUN 87 mg/dl (9-20) H 05/17/24 04:08
Creatinine 5.9 mg/dL (0.7-1.3) H* 05/17/24 04:08
Calcium 7.7 mg/dl (8.4-10.2) L 05/17/24 04:08
Total Bilirubin 0.7 mg/dl (0.2-1.3) 05/17/24 04:08
AST 37 U/L (17-59) 05/17/24 04:08
ALT 47 U/L (0-50) 05/17/24 04:08
Alkaline Phosphatase 26 U/L (38-126) L 05/17/24 04:08
Lipase 131 U/L (23-300) 05/14/24 11:31
Hep Bs Antibody Negative 05/14/24 09:25
Hep B Core Total Ab Negative (Negative) 05/14/24 09:25
Hepatitis C Antibody Negative (Negative) 05/14/24 09:25
Diagnostic Image Results:
05/14/24 CT Abd/pel Without Iv Or Oral
1. Significantly limited study secondary to diffuse volume overload with infiltration of the intra-abdominal fat and absence of oral and intravenous contrast. No gross acute abnormalities appreciated.
2. Small bilateral pleural effusions and likely small pericardial effusion.
3. Small volume of ascites with diffuse infiltration of the mesenteric fat.
4. Probable cholelithiasis.
5. Extensive aortoiliac atherosclerotic disease with femoral-femoral bypass graft.
6. Additional findings above.
Prior GI Procedures:
EGD: none at
Colonoscopy: 05/2018- Do - Multiple non-bleeding colonic AMVs found in rectum s/p
argon plasma coagulation with good effection.
- Few scattered small mouthed diverticulosis in the
sigmoid colon.
- Fair prep unable to rule out small <6mm polyps.
- No specimens collected.
colonoscopy 06/2018 Do - Diverticulosis in the sigmoid colon and in the
descending colon.
- Multiple colonic AVMs in rectum. Treated with argon
plasma coagulation (APC).
- Non-bleeding internal hemorrhoids.
- No specimens collected.
Assessment / Plan
-
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
with drop in hbg and dark NGT output with concern for UGI bleed.
-dark emesis from NGT
-anemia
-reported abdominal pain prior to admission
-unresponsiveness/resp distress s/p intubation
-possible seizure
-myxedema coma
-elevated troponin
-mild thrombocytopenia
-coagulopathy
-acute on chronic kidney disease
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
-mild ALT elevation- small volume ascites on CT
other medical problems:
-severe PAD with b/l AKD and femoral stents
-s/p AKA s/p fem-fem bypass
-cholelithiasis on CT
-prostates CA
-CAD with prior PCI
-sacral decub
pericardial effusion
-solitary kidney
PLAN:
etiology of bleeding related to blood from tongue with noted diffuse bleeding at home prior to admission, Esophagitis, PUD, vs other
cont PPI gtt
trend hbg -- some drop in 10/6 to 6.7 now up to 9.5 after 2 units transfused
800ml output from NGT cont to monitor currently some coffee ground and bile noted
CT limited without contrast but no acute findings
hold EGD unless signs of aggressive bleeding or significant drop in hbg
cont rx per medical team for treatment of Myxedema/intubation etc
I left message for niece to review history as pt remain sedated
-
-
Thank you for consultation and allowing me to participate in the patient's care. Please call the stock control clerk GI physician during the after hours with any questions or concerns.
[2024-05-17 07:34] LABS: Free T4 0.35 ng/dl (0.78-2.19)
--- NOTE | 2024-05-17 07:40 | PTCARENOTE ---
Received pt awake, intubated with right DL PICC with Fentanyl 50mcg/min, Protonix 8mg/hr and Cardene @ 2.5mg/hr. He is following simple commands. Bilateral wrist restraints intact. Good radial pulses. Upper extremity edema. He was informed of the
plan of care and the events of his hospitalization. His tongue is protruding from his mouth, it is dry, with a thin layer of dry blood. Mouth care performed. Bloody secretions from subglottic tube. Lungs CTA. #7.5ETT secured 26cm lip centered. Left
nare with Stewart sump to LIWS. Minimal secretions noted in canister. Hypoactive BSX3, left lower quadrant BS absent. Abdomen is soft. Stevenson secure. Catheter care performed. Stat lock changed. Optifoam dressing partially off/removed. Area cleansed.
DTI noted. Skin barrier applied. Optifoam gentle dressing applied. B/L BKA. Aspiration precautions maintained. Safe environment maintained.
[2024-05-17 08:20] LABS: Hematocrit 28.4 % (39.0-52.0); Hemoglobin 9.7 g/dL (13.0-18.0)
--- NOTE | 2024-05-17 08:53 | VNURNOTE ---
Chart reviewed. Patient is current with [facility] nursing. Will continue to follow hospital course and DC plans.
--- NOTE | 2024-05-17 09:01 | W.PN.NEPH.PH ---
Today's Communication / Plan
-
follow BMP
Assessment/Plan
-
Impression:
HTN emergency
Suspected seizures with tongue bite
Acute respiratory failure -VDRF
Elevated troponin, most likely non-ischemic cardiac injury
Hx of pericardial effusion s/p pericardiocentesis
Recent abdominal discomfort
TORSTEN on CKD stage 5 -cr mid 4s in Mar
mixed acid base disorder-HAGMA and elevated lactate
Alkalemia with primary rep alkalosis
Macroglossia-severe hypothyroidism
Transaminitis
PAD s/p b/l AKA and femoral stents
Renal artery stenosis of solitary kidney-deemed not a candidate for renal artery revasc with poor vascular
Hx of prostate CA
HLD
Glaucoma
Hx of GIB
CHronic anemia
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
Stage 1 sacral wound
Diverticulosis
Coronary artery disease
Renal cancer with history of left nephrectomy
He also with MGUS supposed to see heme out pt but never happened for BM biopsy
Plan:
follow BMP
will need HD this week
timing to be determined
d/w niece on phone. AVF/G is not a concern now as it is an elective procedure and would not occur for some time
can get vascular opinion (confirmation) of prior decision not to intervene on right ZAC
IV synthroid
IV lasix today
follow Hgb
critical care time 40 minutes
-
-
Date of Service: May 17, 2024
CC / HPI / ROS
-
Chief Complaint:
TORSTEN with CKD4
History of Present Illness:
cr up at 5.9
oligoanuric with alicea
BP controlled on cardene gtt
on vent, mildly sedated
hgb stable
Review of Systems:
remains intubated and sedated , FIo2 30%
nods head to questions
follows simple commands
Labs
-
Labs:
WBC 9.3 10^3/uL (4.8-10.8) 05/17/24 04:08
RBC 3.26 10^6/uL (4.70-6.10) L 05/17/24 04:08
Plt Count 128 10^3/uL (130-400) L 05/17/24 04:08
Sodium 140 mmol/L (135-145) 05/17/24 04:08
Potassium 4.4 mmol/L (3.5-5.1) 05/17/24 04:08
Chloride 105 mmol/L (98-107) 05/17/24 04:08
Carbon Dioxide 16 mmol/L (22-30) L 05/17/24 04:08
BUN 87 mg/dl (9-20) H 05/17/24 04:08
Creatinine 5.9 mg/dL (0.7-1.3) H* 05/17/24 04:08
eGFR 9.04 05/17/24 04:08
Glucose 100 mg/dl (70-99) H 05/17/24 04:08
Calcium 7.7 mg/dl (8.4-10.2) L 05/17/24 04:08
Lcz-V-Vjwojckjnoy Pept 6600 pg/ml 05/16/24 03:30
Albumin 3.3 g/dl (3.5-5.0) L 05/17/24 04:08
Physical Exam
-
Vital Signs:
Vital Signs
Temp Pulse Resp BP Pulse Ox
97.6 F 63 14 166/75 99
05/17/24 08:00 05/17/24 05:45 05/17/24 05:45 05/17/24 05:45 05/17/24 07:32
Cardiovascular:: Regular rate and rhythm
Respiratory:: Bilateral: Coarse
Lung Excursion:: Normal
Abdomen:: Nontender and Soft
Bowel Sounds:: Normal
Extremity Edema:: +3: Bilateral:
[2024-05-17] MEDS: LEVOTHROID 50 MCG IV (09:11)
[2024-05-17] MEDS: KEPPRA 500 MG IV ×2 (09:12→20:10)
[2024-05-17] MEDS: MIRALAX 17 GRAMS TUBE (09:13)
[2024-05-17] MEDS: DESENEX/MITRAZOL/ZEASORB 1 APPLIC TOPICAL ×2 (09:14→20:12)
[2024-05-17] MEDS: ALPHAGAN P 0.15% EYE DROPS 1 DROP BOTH EYES (09:14)
[2024-05-17] MEDS: TRUSOPT 2% OPHTHALMIC SOLUTION 1 DROP BOTH EYES ×2 (09:15→20:12)
[2024-05-17] MEDS: LASIX 80 MG IV ×2 (10:01→15:07)
--- NOTE | 2024-05-17 10:12 | EEG.RPT ---
Electroencephalogram Report
Recording
Date of EE05/17/24
Type of EEG: Routine
Length of EEG recordin minutes
Done with Video Recording: Yes
Patient Status: Inpatient
Recording Conditions: Awake, Drowsy and Asleep
Hyperventilation Performed: No
Photic Stimulation Performed: Yes
Report
LESS THAN 1 HOUR EEG REPORT
LESS THAN 1 HOUR EEG INTERPRETATION:
Minimally abnormal study for age based on generalized slowing demonstrated bihemispherically equally
CLINICAL CORRELATION:
Although normative values not been established for a person of this advanced age the patient�s symmetry of the background suggests that this study was suggestive of mild bihemispheric cortical dysfunction. No epileptiform features were demonstrated.
If concerns remain regarding epilepsy, prolonged monitoring may be of assistance.
Clinical correlation is advised.
METHODS:
A 21-channel digital electroencephalogram (EEG) was performed in the ICU. The 10/20 international system of electrode placement was used with ECG and lateral/vertical eye movements recorded. [employer] system quantitative analysis was performed.
IMPRESSION(S):
Quality of study
Fair, with muscle artifact frequently
Background
Amplitude: mildly reduced
Anterior-posterior voltage gradient differentiation: Fair
Delta frequency maximal background demonstrated
Sleep
Drowsiness present
Stage 1 sleep present
Hyperventilation
Not performed
Photic Stimulation
Failed to activate the record
ECG
Normal rhythm
--- NOTE | 2024-05-17 10:20 | W.PN.HOSP.TC ---
Today's Communication/Plan
-
cont supportive treatment and IV Synthroid
GI consult
cont PPI
Assessment / Plan
Assessment / Plan
78yo M with PMHx of severe PAD s/p b/l AKA s/p fem-fem bypass, Hx of prostate CA, CAD s/p PCI, stage 1 sacral pressure wound, glaucoma, labile HTN, Hx of pericardial effusion, R solitary kidney, Hx of retroperitoneal fibrosis, renal artery stenosis,
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
CKD, also developed UGIB
A/P:
#HTN emergency with subsequent seizures, causing significant tongue biting and impending airway compromise due to macroglossia
Nicardipine drip
Intubated for protection of the airways on 05/14/24, expect extubation when tongue swelling will resolve
Target normotension
restart home meds, place NG for medications
Sedation and vent mgmt as per supply chain consultant
Head CT with chronic changes and moderate dilation of ventricles and sulci
Tamara, neuro consult, eventual MRI brain
Seizure precautions
#Myxedema coma
Endo consult: Synthroid 50mcg IV then 75mcg PO and recheck TSH in 4 weeks
Hydrocortisone and IV Synthroid as per communication between supply chain consultant and endocrinology
#Anemia of chronic disease with acute blood loss anemia 2/2 upper GIB
dark output from NG tube
PPI drip
stop anticoagulation and antiplatelets
s/p 2units PRBC on 05/16/24
follow serial Hgb
GI consult
Epo as per Nephro
#Small L lung basilar opacity on XR
most likely atelectasis
sputum Cx with Serratia - supply chain consultant started Ceftriaxone on 05/16/24
#Elevated troponin, most likely non-ischemic cardiac injury 2/2 airway compromise
#Hx of pericardial effusion s/p pericardiocentesis
with HTN - unlikely tamponade
Echo: similar to the one in Mar 2024: stable pericardial effusion without hemodynamic compromise, pleural effusion, mild to moderate AR and MR
Cardiology consult
serial troponin without further increase
Cont ASA
#Recent abdominal discomfort
CT abd without acute findings: cholelithiasis present, R lower kidney simple exophytic cyst, small amount of ascites, extensive ASCVD, diffuse anasarca
Lipase WNL
#TORSTEN on CKD stage 4 with HAGMA and elevated lactate
Nephrology consult: might need HD this admission
follow Cr
#Transaminitis
since 03/2004
hepatitis panel neg
follow LFT
#Elevated CPK not in rhabdomyolysis range
possibly 2/2 hypothyroidism
#PAD s/p b/l AKA and femoral stents
#Renal artery stenosis
Previously followed with VascSx - deemed not a candidate for renal artery revasc with poor kidney injury
#MGUS
#Hx of prostate CA
#HLD
#Glaucoma
#Hx of GIB
#Chronic anemia
#Stage 1 sacral wound
#Diverticulosis
Follow up with Onc for outpatient BM biopsy as planned prior
COnt home meds
Wound care
Hgb stable follow H&H
DVT ppx hep
Full code
I have spent at least 55min reviewing patient chart, test and imaging results, communication with consultants and family and direct patient care
Anticipated Discharge: > 48 hours
Subjective/Interval History
-
Date of Service: May 17, 2024
Objective Data
-
Labs:
Laboratory Results
05/17/24 05/17/24 05/17/24
01:41 04:08 08:08
WBC 9.3
Hgb 9.4 L D 9.5 L 9.7 L
Hct 27.1 L 27.5 L 28.4 L
Plt Count 128 L
Sodium 140
Potassium 4.4
Chloride 105
Carbon Dioxide 16 L
BUN 87 H
Creatinine 5.9 H*
Glucose 100 H
Calcium 7.7 L
Total Bilirubin 0.7
AST 37
ALT 47
Alkaline Phosphatase 26 L
05/17/24
13:30
WBC
Hgb Pending
Hct Pending
Plt Count
Sodium
Potassium
Chloride
Carbon Dioxide
BUN
Creatinine
Glucose
Calcium
Total Bilirubin
AST
ALT
Alkaline Phosphatase
Vital Signs:
Vital Signs
Temp Pulse Resp BP Pulse Ox
97.6 F 47 14 129/66 99
05/17/24 08:00 05/17/24 10:01 05/17/24 05:45 05/17/24 10:01 05/17/24 09:58
I&O
05/16/24 05/17/24 05/18/24
06:59 06:59 06:59
Intake Total 109.0 / 111.5 1605.0 / 1632.5 120.0 / 120.0
Output Total 125 / 125 1275 / 1285 37 / 37
Balance -16.0 / -13.5 330.0 / 347.5 83.0 / 83.0
Review of Systems
-
Unable to obtain full review of systems at this time due to: Patient Intubation
Physical Exam
-
General: No Apparent Distress, Comfortable and Intubated
Respiratory: Clear to Auscultation
Cardiac: Regular Rhythm
GI: Soft, Nontender and Nondistended
Musculoskeletal: No Clubbing, No Cyanosis and No Edema
Neuro: Awake
Psych: Calm
--- NOTE | 2024-05-17 11:40 | W.PN.INTV ---
Today's Communication / Plan
Recommendations
Continue mechanical ventilation without change
No plans for extubation due to macroglossia
Continue IV steroids
Thyroid replacement therapy
Ceftriaxone for Serratia in the sputum
Follow H&H
Continue PPI
Minimal sedation
Assessment
-
Patient is an 78-year-old male with previous history of severe PAD status post bilateral AKA, bilateral femorofemoral bypass, history of prostate cancer, CAD status post PCI, sacral pressure wound, labile hypertension, history of right solitary
kidney, renal artery stenosis presenting after being found by family unresponsive, 'covered in blood.' Niece states that he went to bed the night before without any issue except he noted abdominal pain. She did not recall his mouth being swollen.
She found him unresponsive this a.m. blood on chest and across the room, stemming from his mouth. EMS called, on arrival he had witnessed seizure. In the ER, blood pressure greater than 220 he was intubated for airway protection, he had notable
tongue lacerations. TSH is 204. He has no prior history of thyroid disease. Admitted to ICU.
Acute myxedema coma
Unresponsiveness
Witnessed tonic clonic seizure en route
Severe macroglossia s/p intubation (originally with at least 1.5-2' protrusion from lips)
Hypertensive emergency >220 on arrival
Tongue laceration with oral bleeding
Metabolic acidosis
Lactic acidosis
Elevated LFTs
Serratia PNA
Continuous dark emesis from NG likely Ileus, CT AP neg
TORSTEN on CKD, likely to need HD
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
[place] lambda light chains
CKI 2/2 multiple etiologies including renal artery stenosis 60% on solitary kidney
Penis and right upper extremity edema/volume overload
Chronic hydronephrosis
History of Cystitis
Pericardial and pleural effusion
Coronary artery disease
Hypertension
Peripheral vascular disease
Renal cancer with history of left nephrectomy
Plan
Mental status improved, now following commands., Has resolved.
No further seizures.
Pain/sedation: fent PRN, fent and prop gtt continued
RASS goals: 0
Hemodynamically stable, not requiring pressors.
Cardiac history reviewed--HTN, CAD/PAD,
Continue oral antihypertensive
Echocardiogram 05/14/2024: Moderate size pericardial effusion without evidence of hemodynamic compromise. Pleural effusion present. Moderate asymmetric left ventricular hypertrophy with underfilled left ventricular cavity. No regional wall motion
abnormalities. Mild to moderate MR. Mild to moderate AR. Mild TR.
Monitor on telemetry
Oxygen needs: intubated, for airway protection
Vent setting reviewed: AC 500/16/40/5+
Prior history of lung disease: none known, rule out infection
Supplemental O2 as indicated to maintain sats > 89%
CXR/CT reviewed indicating stable findings compared to prior imaging
No plans for SBT until macroglossia resolves-will continue to reevaluate daily basis
NPO, resume diet when able
Continuous output from NG likely Ileus, CT AP negative
Coffee-ground emesis: Unclear if this is bleeding from his tongue bite.
Product Support Sales Representative recommendations
Aspiration precautions, HOB > 30 degrees
Speech therapy eval can be considered if at elevated risk
Continue PPI
Anemia: Status post 2 units of packed red blood cells With good response
GI has evaluated the patient: No indication for upper endoscopy at this point.
TORSTEN on CKD--Creat at baseline, renal consult
Worsening, may need HD eventually this admission
Family will only proceed with Dr Virgen involved.
Void trials
Follow urine output, critical I/Os
Replete electrolytes as needed
May need HD this admission- nephrology following.
Leukocytosis resolved likely stress from seizures.
Afebrile
Sputum+ serratia, continue ceftriaxone
History of PCN allergy
Follow fever trend, WBC count
Lactate elevated on admission, continue to trend until <2
CBC stable, bleeding at mouth, packed/resolved.
NG tube in place
Hemoglobin 9.7- status post 2 units of packed red blood cells
DVT prophylaxis as assessed based on risk, including mechanical SCDs
Can transfuse if indicated for Hb <7, plt < 10
INR WNL
TSH 204, myxedema coma
Continue hydrocortisone, IV synthroid
Appreciate endodrine recs, discussed care via TT
No prior known h/o diabetes or was thyroid disease
Repeat labs, TSH declining 204 -> 172 ->iimproved mental status.
Prognosis guarded
Diagnostic Data
Chest X-Ray: 05/14/24- Endotracheal tube with tip at the zeenat. Consider retracting 2 cm. Nonspecific small left basilar opacity which partially obscures the hemidiaphragm. This could represent a small effusion and/or airspace consolidation.
CT Scan: AP 05/14/24- IMPRESSION:
1. Significantly limited study secondary to diffuse volume overload with infiltration of the intra-abdominal fat and absence of oral and intravenous contrast. No gross acute abnormalities appreciated.
2. Small bilateral pleural effusions and likely small pericardial effusion.
3. Small volume of ascites with diffuse infiltration of the mesenteric fat.
4. Probable cholelithiasis.
5. Extensive aortoiliac atherosclerotic disease with femoral-femoral bypass graft.
Echo: 03/26/24- Normal left ventricular size, wall thickness and systolic function. Left ventricular ejection fraction is 55-60% by visual assessment. Normal right ventricular size and function. Limited valvular interrogation. Small to moderate
pericardial effusion located near right ventricle without evidence of hemodynamic compromise. Compared to prior from March 19, 2024, on indirect [id number] comparison findings appear similar.
PFT's:
Reports and relevant images were personally reviewed.
-----
Critical Care time 39 mins -- The patient is admitted for acute critical illness for the treatment of vital organ failure and/or prevention of further life-threatening conditions. Total care includes time spent in review of history, physical exam,
medications, hemodynamic/ventilator parameters, laboratory data, imaging and discussion with house staff, pharmacy, respiratory therapy, tool die maker, and nursing.
Subjective Dataa
Subjective Data
Date of Service:
Date of Service: May 17, 2024
Chief Complaint: Child Welfare Director Follow Up
Subjective:
Intubated, mechanical ventilation.
Following simple commands
Unable to provide any history due to intubation status
Objective Data
Data Reviewed
Vital Signs / I&O / Oxygen:
Vital Signs
Temp Pulse Resp BP Pulse Ox
97.6 F 47 14 129/66 99
05/17/24 08:00 05/17/24 10:01 05/17/24 05:45 05/17/24 10:01 05/17/24 11:34
Intake and Output
05/16/24 05/17/24 05/18/24
06:59 06:59 06:59
Intake Total 109.0 / 111.5 1605.0 / 1632.5 120.0 / 120.0
Output Total 125 / 125 1275 / 1285 37 / 37
Balance -16.0 / -13.5 330.0 / 347.5 83.0 / 83.0
SaO2 [A/C] 99
SaO2 99
Nasal Cannula flow liters per 5
minute
Physical Exam
General: Comfortable and Other (NAD)
HEENT: Normocephalic, Anicteric, Moist Mucous Membranes, Other (macroglossia, severe--improving slowly) and Other (malodorous oral care)
Cardiovascular: S1-S2, Regular Rhythm and Other (BL AKA)
Respiratory: Clear, Non-Labored Respirations and ET Tube
GI: Soft, Non Distended and Non Tender
Neurology: Lethargic and Non Verbal (sedated/intubated)
Skin: Warm and Dry
Labs/Micro/Reports
Lab Data
05/17/24 04:08
Microbiology
05/14/24 11:12 Blood/Venous Blood Culture - Preliminary
No Growth in 72 hours- Final report to follow
05/14/24 09:21 Blood/Venous Blood Culture - Preliminary
No Growth in 72 hours- Final report to follow
05/14/24 13:12 Tracheal Aspirate Respiratory Culture - Final
Serratia marcescens
05/14/24 13:12 Tracheal Aspirate Gram Stain - Final
05/14/24 11:34 Nose MRSA Screen - Final
No Methicillin Resistant Staphylococcus aureus isolated.
05/14/24 13:12 Urine Legionella Urinary Antigen - Final
Negative for Legionella pneumophila Serogroup 1 antigen.
A negative result does not rule out the possiblity of
Legionella infection due to other serogroups or species of
Legionella. Clinical correlation is recommended.
05/14/24 13:12 Urine Streptococcus pneumoniae Antigen (M - Final
Negative for Streptococcus pneumoniae antigen.
A negative result does not exclude infection with
Streptococcus pneumoniae. Clinical correlation is
recommended.
05/14/24 09:25 Nasal Swab Influenza Types A & B (NATE) - Final
Negative for Influenza A & B, NAAT
Negative results must be combined with clinical observations
and patient history.
Nucleic Acid Amplification test (NAAT)performed on the
[facility]. platform.
--- NOTE | 2024-05-17 11:43 | PTCARENOTE ---
Pt only diuresed 40ml's since Lasix administered. Dr. Bains notified via TT.
[2024-05-17] MEDS: STERILE WATER FOR INJECTION 10 ML IV (13:05)
[2024-05-17] MEDS: ROCEPHIN 1000 MG IV (13:05)
--- NOTE | 2024-05-17 13:10 | CM ---
CM following re: discharge planning.
Reviewed pt's chart, met with pt.
Per chart review, pt remains intubated, continue supportive care.
Pt lives with niece in a 2SH and niece stated she is next of kin.
D/C plan: uncertain at this time and will depend on pt's progress.
CM will follow with discharge plan updates as hospitalization progresses
[2024-05-17 13:26] LABS: Hematocrit 26.3 % (39.0-52.0)
--- NOTE | 2024-05-17 14:40 | WOUNDNOTE ---
WON RN NOTE: Asked to see patient by nursing for suspected PI on Sacrum. With assist of nurse Cindy turned patient to sides, Coccyx and Sacrum dry but no open wounds visible. Skin with chronic dark discolored skin, suspect from prolonged sitting. R
ischium with pink scar, silicone foam applied to area and sacral silicone foam applied. Repositioned patient onto L semi side lying position. Will sign off.
[2024-05-17] MEDS: SUBLIMAZE 100 IV (18:56)
--- NOTE | 2024-05-17 20:38 | PTCARENOTE ---
Assumed care of pt. approx 1900.
Remains intubated, on minimal sedation of 50 mcg fentanyl gtt.
Macroglossia resolving, RASS 0, CPOT 0.
Pt. follows all commands, focally intact, nods head appropriately to questions, equal stave cutter strength, all protective reflexes intact.
Sinus khanh w/ minimal ectopy, normotensive on/off cardene, Normothermic.
remains oliguric, alicea in place.
Family provided with update bedside, all questions answered.
[2024-05-18] VITALS (47 sets, daily range): BP systolic 112–197; BP diastolic 57–99; BMI 20.2
--- NOTE | 2024-05-18 00:04 | PTCARENOTE ---
No change in pt. assessment.
[2024-05-18] MEDS: SOLU-CORTEF 50 MG IV ×3 (00:05→18:09)
[2024-05-18] MEDS: PROTONIX 100 IV (00:05)
[2024-05-18] MEDS: XALATAN OPHTHALMIC SOLUTION 1 DROP BOTH EYES ×2 (00:05→21:01)
--- NOTE | 2024-05-18 03:56 | PTCARENOTE ---
No change in pt. assessment.
[2024-05-18 04:06] LABS: % Basophils 0.2 % (0-2); % Immature Granulocytes 0.2 % (0-0.5); % Lymphocytes 2.2 % (20.5-51.1); % Monocytes 5.9 % (1.7-9.3); % Neutrophils 91.5 % (42.2-75.2); Absolute Lymphocytes 0.2 10^3/uL (1.2-3.4); Absolute Monocytes 0.5 10^3/uL (0.1-0.6); Hematocrit 26.8 % (39.0-52.0); Hemoglobin 9.3 g/dL (13.0-18.0); Mean Corp Hgb Conc. 34.7 g/dL (33.0-37.0); Mean Corpuscular Hgb 29.3 pg (27.0-31.0); Mean Corpuscular Volume 84.5 fL (80.0-94.0); Mean Platelet Volume 10.9 fL (7.4-10.4); Nucleated Red Blood Cells % 0 % (-); Platelet Count 142 10^3/uL (130-400); Red Blood Cell Count 3.17 10^6/uL (4.70-6.10); Red Cell Dist. Width 14.6 % (11.5-14.5); White Blood Cell Count 8.8 10^3/uL (4.8-10.8)
[2024-05-18 04:13] LABS: ALT (SGPT) 44 U/L (0-50); AST (SGOT) 39 U/L (17-59); Alkaline Phosphatase 28 U/L (38-126); Blood Urea Nitrogen 95 mg/dl (9-20); Calcium 7.4 mg/dl (8.4-10.2); Carbon Dioxide 15 mmol/L (22-30); Chloride 104 mmol/L (98-107); Estimated Creatinine Clearance 7 ml/min; Glucose 131 mg/dl (70-99); Potassium 4.3 mmol/L (3.5-5.1); Sodium 141 mmol/L (135-145); Total Bilirubin 0.5 mg/dl (0.2-1.3); Total Protein 5.4 g/dl (6.3-8.2)
[2024-05-18] MEDS: CARDENE 200 IV (06:03)
[2024-05-18] MEDS: ALPHAGAN P 0.15% EYE DROPS 1 DROP BOTH EYES (07:51)
[2024-05-18] MEDS: LEVOTHROID 50 MCG IV (07:52)
[2024-05-18] MEDS: DESENEX/MITRAZOL/ZEASORB 1 APPLIC TOPICAL ×2 (07:52→19:25)
[2024-05-18] MEDS: KEPPRA 500 MG IV (07:52)
[2024-05-18] MEDS: MIRALAX 17 GRAMS TUBE (07:53)
[2024-05-18] MEDS: SENOKOT-S 1 TABLET TUBE (07:53)
[2024-05-18] MEDS: SUBLIMAZE 50 MCG IV ×3 (07:53→21:38)
[2024-05-18] MEDS: TRUSOPT 2% OPHTHALMIC SOLUTION 1 DROP BOTH EYES ×2 (07:55→19:26)
[2024-05-18 08:28] LABS: B.E. -4.7 mmol/L; HCO3 17.2 mmol/L (21-28); O2 Saturation % 99.7 % (94-98); PCO2 22 mmHg (35-48); PO2 134 mmHg (83-108)
--- NOTE | 2024-05-18 09:06 | W.PN.NEPH.PH ---
Today's Communication / Plan
-
HD today if family agrees
Assessment/Plan
-
Impression:
HTN emergency
Suspected seizures with tongue bite
Acute respiratory failure -VDRF
Elevated troponin, most likely non-ischemic cardiac injury
Hx of pericardial effusion s/p pericardiocentesis
Recent abdominal discomfort
TORSTEN on CKD stage 5 -cr mid 4s in Mar
mixed acid base disorder-HAGMA and elevated lactate
Alkalemia with primary rep alkalosis
Macroglossia-severe hypothyroidism
Transaminitis
PAD s/p b/l AKA and femoral stents
Renal artery stenosis of solitary kidney-deemed not a candidate for renal artery revasc with poor vascular
Hx of prostate CA
HLD
Glaucoma
Hx of GIB
CHronic anemia
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
Stage 1 sacral wound
Diverticulosis
Coronary artery disease
Renal cancer with history of left nephrectomy
He also with MGUS supposed to see heme out pt but never happened for BM biopsy
Plan:
follow BMP
will need HD
timing to be determined
d/w niece on phone. AVF/G is not a concern now as it is an elective procedure and would not occur for some time
She will discuss with her aunt (pt's sister) regarding dialysis and let me know. I did ask the patient yesterday and he confirmed that he would accept dialysis (as in prior hospitalizations)
IV synthroid
follow Hgb
critical care time 35 minutes
-
-
Date of Service: May 18, 2024
CC / HPI / ROS
-
Chief Complaint:
TORSTEN with CKD4
History of Present Illness:
TORSTEN/Cr up to 6.4
failed lasix trial yesterday 80mgIV
oligoanuric with alicea
BP controlled off cardene gtt
on vent, mildly sedated
hgb stable
remains with acidosis 15
Review of Systems:
remains intubated and sedated , FIo2 30%
nods head to questions
follows simple commands
Labs
-
Labs:
WBC 8.8 10^3/uL (4.8-10.8) 05/18/24 03:18
RBC 3.17 10^6/uL (4.70-6.10) L 05/18/24 03:18
Hgb 9.3 g/dL (13.0-18.0) L 05/18/24 03:18
Hct 26.8 % (39.0-52.0) L 05/18/24 03:18
Plt Count 142 10^3/uL (130-400) 05/18/24 03:18
Sodium 141 mmol/L (135-145) 05/18/24 03:18
Potassium 4.3 mmol/L (3.5-5.1) 05/18/24 03:18
Chloride 104 mmol/L (98-107) 05/18/24 03:18
Carbon Dioxide 15 mmol/L (22-30) L 05/18/24 03:18
BUN 95 mg/dl (9-20) H 05/18/24 03:18
Creatinine 6.4 mg/dL (0.7-1.3) H* 05/18/24 03:18
eGFR 8.20 05/18/24 03:18
Glucose 131 mg/dl (70-99) H 05/18/24 03:18
Calcium 7.4 mg/dl (8.4-10.2) L 05/18/24 03:18
Sqm-W-Lctzpmuvjgb Pept 6600 pg/ml 05/16/24 03:30
Albumin 3.0 g/dl (3.5-5.0) L 05/18/24 03:18
Physical Exam
-
Vital Signs:
Vital Signs
Temp Pulse Resp BP Pulse Ox
97.3 F 56 19 112/57 100
05/18/24 07:41 05/18/24 07:30 05/18/24 07:30 05/18/24 07:30 05/18/24 08:00
Cardiovascular:: Regular rate and rhythm
Respiratory:: Bilateral: Coarse
Lung Excursion:: Normal
Abdomen:: Nontender and Soft
Bowel Sounds:: Normal
Extremity Edema:: None: Bilateral:
[2024-05-18] MEDS: PROTONIX IV ×2 (09:32→11:29)
--- NOTE | 2024-05-18 10:21 | W.PN.NEURO.1 ---
Today's Communication / Plan
-
.
Subjective/Objective
Subjective Data
Date of Service: May 18, 2024
Neurology follow-up note
HPI: This is an 78-year-old man who presented to [facility] on 05/14/2024 after being found down unresponsive. Mr. Boogie was found to be severely hypertensive, hypothyroid, uremic and anemic. The patient was started on Keppra for
suspected seizure.
Routine EEG(05/17/2024) mild diffuse slowing.
ER VS: 212/107-229/122, 91-48, afebrile
EKG: NSR
PDMP:none
Labs:TSH 204-143, free T4 0.14, neg ua tox, neg ETOH, cr 4.9, lactic acid 3.4,
CT head wo contrast(05/14/2024) decrease in attenuation in the periventricular regions bilaterally, atrophy
24h events: bradycardic down to 48, hypertensive up to 197/83 in AM, afebrile
PMH: L renal cell carcinoma/prostate CA, IgG kappa monoclonal antibody, CAD, PVD, Renal artery stenosis, hypothyroidism, HTN, DLP, CKD
PSH: L nephrectomy; femoral-femoral bypass graft. PTCI, BL AKA,
SH: never smoker
All: Phenytoin, penicillin, iodine, tetanus and diphtheria Dexacort, ciprofloxacin,
ROS: Unable to see encephalopathy.
General: Intubates, restrained
Cardio: Regular rate
Mental Status: Alert, follows complex requests(shows R thumb, closes eyes). Increased processing time. No hemineglect.
Cranial Nerves: Pupils are equally round and reactive to light. EOMs full. BTT BL
Motor: UE-antigravity
Coordination: No tremors and myoclonic movements.
Gait: unable
Assessment and Plan:
I. Multifactorial encephalopathy (metabolic, vascular, toxic)�clinically improved
II. Probable provoked seizure
III. History of renal cell carcinoma�
IV History of R ICA occlusion
-Seizure precautions
-continue Keppra 500 mg twice daily
-Follow-up brain MRI without gadolinium to rule out CHEMIST HELPER mets
I personally reviewed all radiology and labs along with past medical records pertinent to current medical problems. Total time spent in patient care is 45 minutes.
Thank you for allowing us to participate in the care of this patient. We will continue to follow. Please do not hesitate to contact us with any questions or concerns.
Objective Data
Vital Signs
Temp Pulse Resp BP Pulse Ox
36.3 C 56 19 112/57 100
05/18/24 07:41 05/18/24 07:30 05/18/24 07:30 05/18/24 07:30 05/18/24 08:00
Lab Results
05/18/24 03:18
05/18/24 03:18
PT 17.8 Sec (11.4-14.6) H 05/14/24 09:21
INR 1.48 05/14/24 09:21
APTT 37.6 Sec (23.4-35.0) H 05/14/24 09:21
Sodium 141 mmol/L (135-145) 05/18/24 03:18
Potassium 4.3 mmol/L (3.5-5.1) 05/18/24 03:18
BUN 95 mg/dl (9-20) H 05/18/24 03:18
Glucose 131 mg/dl (70-99) H 05/18/24 03:18
Calcium 7.4 mg/dl (8.4-10.2) L 05/18/24 03:18
Gwo-C-Chllmobplqb Pept 6600 pg/ml 05/16/24 03:30
Ur Buprenorphine Negative (Negative) 05/14/24 13:12
Patient Allergies
Hydantoins Allergy (Severe, Verified 05/14/24 08:09)
Rash
penicillin G Allergy (Severe, Verified 05/14/24 08:09)
liver damage, red hands and feet
Penicillins Allergy (Severe, Verified 05/14/24 08:09)
liver damage, red hands and feet
phenytoin Allergy (Severe, Verified 05/14/24 08:09)
Rash
ciprofloxacin Allergy (Intermediate, Verified 05/14/24 08:09)
Itching
Iodinated Contrast Media [Iodinated Contrast- Oral and IV Dye] Allergy (Intermediate, Verified 05/14/24 08:09)
chills;tremors
tetanus and diphtheria toxoids Allergy (Intermediate, Verified 05/14/24 08:09)
Swelling, Pain at site
--- NOTE | 2024-05-18 10:58 | W.PN.GI.CBS2 ---
Addendum entered and electronically signed by Maddy Duong MD 05/18/24 15:30:
I saw and examined the patient.
The AGRONOMY MANAGER or PA's note was reviewed and I agree with the note.
Comment: 78 yo M here with likely seizure bit tongue leading to blood as well as dark NGT output.
Stable hb.
No need for GI intervention.
GI signing off pls call with ?S.
Original Note:
Today's Communication / Plan
-
etiology of bleeding related to blood from tongue with noted diffuse bleeding at home prior to admission, Esophagitis, PUD, vs other
bleeding now improved and hbg remains stable
transition to PPI IV BID
cont to trend hbg
cont tube feeds
reviewed with family yesterday holding on EGD unless recurrent drop in hbg or active signs of GI bleeding
I left contact information on chart for outpatient follow up with report of abdominal pain prior to admission
NSAID avoidance
will sign off call GI for any recurrent bleeding
Assessment / Plan
-
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
solitary kidney, Renal artery stenosis, bence Ritter protein with monoclonal spike with admission, MGUS 05/14 with unresponsiveness with swollen and bleeding tongue, HTN emergency , possible seizure, myxedema coma, TORSTEN, elevated troponin and noted
with drop in hbg and dark NGT output with concern for UGI bleed.
Laboratory Tests
05/16/24 05/16/24 05/17/24
15:54 21:24 01:41
Hgb 6.7 L* 7.1 L 9.4 L D
05/17/24 05/17/24 05/17/24
04:08 08:08 13:17
Hgb 9.5 L 9.7 L 9.0 L
05/18/24
03:18
Hgb 9.3 L
-dark emesis from NGT
-anemia
-reported abdominal pain prior to admission
-unresponsiveness/resp distress s/p intubation
-possible seizure
-myxedema coma
-elevated troponin
-mild thrombocytopenia
-coagulopathy
-acute on chronic kidney disease
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
-mild ALT elevation- small volume ascites on CT
other medical problems:
-severe PAD with b/l AKD and femoral stents
-s/p AKA s/p fem-fem bypass
-cholelithiasis on CT
-prostates CA
-CAD with prior PCI
-sacral decub
pericardial effusion
-solitary kidney
PLAN:
etiology of bleeding related to blood from tongue with noted diffuse bleeding at home prior to admission, Esophagitis, PUD, vs other
bleeding now improved and hbg remains stable
transition to PPI IV BID
cont to trend hbg
cont tube feeds
reviewed with family yesterday holding on EGD unless recurrent drop in hbg or active signs of GI bleeding
I left contact information on chart for outpatient follow up with report of abdominal pain prior to admission
NSAID avoidance
will sign off call GI for any recurrent bleeding
Subjective
Subjective
Date of Service: May 18, 2024
no further coffee ground noted and now started on tube feeds no stools
Objective
Data Reviewed
Laboratory Data:
Laboratory Results
05/18/24 03:18
05/18/24 03:18
Laboratory Results
PT 17.8 Sec (11.4-14.6) H 05/14/24 09:21
INR 1.48 05/14/24 09:21
APTT 37.6 Sec (23.4-35.0) H 05/14/24 09:21
Magnesium 1.9 mg/dl (1.6-2.3) 05/16/24 03:30
Total Bilirubin 0.5 mg/dl (0.2-1.3) 05/18/24 03:18
AST 39 U/L (17-59) 05/18/24 03:18
ALT 44 U/L (0-50) 05/18/24 03:18
Alkaline Phosphatase 28 U/L (38-126) L 05/18/24 03:18
Lipase 131 U/L (23-300) 05/14/24 11:31
Vital Signs and I&O:
Vital Signs
Temp Pulse Resp BP Pulse Ox
97.3 F 56 19 112/57 100
05/18/24 07:41 05/18/24 07:30 05/18/24 07:30 05/18/24 07:30 05/18/24 08:00
I&O
05/17/24 05/18/24 05/19/24
06:59 06:59 06:59
Intake Total 1605.0 / 1632.5 777.5 / 845.0 357.5 / 357.5
Output Total 1275 / 1285 317 / 317
Balance 330.0 / 347.5 460.5 / 528.0 342.5 / 342.5
Physical Exam
Physical Exam
HEENT: Anicteric and Other (tongue with still some swelling and redness )
Cardiology: Other (bradicardia )
Pulmonary: Clear and Other (remains intubated )
GI: Soft, Non Distended and Non Tender
Neuro: Other (some eye opening to voice )
--- NOTE | 2024-05-18 11:55 | W.PN.INTV ---
Today's Communication / Plan
Recommendations
Mechanical ventilation settings adjusted
Not ready for SBT due to macroglossia
Continue IV levothyroxine
Decrease hydrocortisone today and discontinue the next 24 to 48 hours
Continue fentanyl drip, will minimize as able
Continue antibiotics-transition to cefepime, additional 4 days
Nutritional support
Transition to PPI twice a day
Continue Keppra
Eventual MRI
Possible dialysis today or tomorrow
Wean off Cardene drip as able
Assessment
-
Patient is an 78-year-old male with previous history of severe PAD status post bilateral AKA, bilateral femorofemoral bypass, history of prostate cancer, CAD status post PCI, sacral pressure wound, labile hypertension, history of right solitary
kidney, renal artery stenosis presenting after being found by family unresponsive, 'covered in blood.' Niece states that he went to bed the night before without any issue except he noted abdominal pain. She did not recall his mouth being swollen.
She found him unresponsive this a.m. blood on chest and across the room, stemming from his mouth. EMS called, on arrival he had witnessed seizure. In the ER, blood pressure greater than 220 he was intubated for airway protection, he had notable
tongue lacerations. TSH is 204. He has no prior history of thyroid disease. Admitted to ICU.
Acute myxedema coma
Unresponsiveness
Witnessed tonic clonic seizure en route
Severe macroglossia s/p intubation (originally with at least 1.5-2' protrusion from lips)
Required intubation and mechanical ventilation for airway protection.
Hypertensive emergency >220 on arrival
Tongue laceration with oral bleeding
Metabolic acidosis
Lactic acidosis
Elevated LFTs
Serratia PNA
Continuous dark emesis from NG likely Ileus, CT AP neg
TORSTEN on CKD, likely to need HD
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
Rowley lambda light chains
CKI 2/2 multiple etiologies including renal artery stenosis 60% on solitary kidney
Penis and right upper extremity edema/volume overload
Chronic hydronephrosis
History of Cystitis
Pericardial and pleural effusion
Coronary artery disease
Hypertension
Peripheral vascular disease
Renal cancer with history of left nephrectomy
Plan
Mental status improved, now following commands.
No further seizures.
Neurology following: Continue Keppra
MRI pending
-
Hemodynamically stable, not requiring pressors.
Cardiac history reviewed--HTN, CAD/PAD,
Continue oral antihypertensive
Cardene will be used for blood pressure control as well.
Echocardiogram 05/14/2024: Moderate size pericardial effusion without evidence of hemodynamic compromise. Pleural effusion present. Moderate asymmetric left ventricular hypertrophy with underfilled left ventricular cavity. No regional wall motion
abnormalities. Mild to moderate MR. Mild to moderate AR. Mild TR.
Monitor on telemetry
Intubated, for airway protection due to macroglossia.
Vent setting reviewed: AC 400/+
Prior history of lung disease: none known.
ABG with alkalosis. Respiratory rate adjusted.
Supplemental O2 as indicated to maintain sats > 89%
-
CXR/CT reviewed indicating stable findings compared to prior imaging
No plans for SBT until macroglossia resolves-will continue to reevaluate daily basis-this is improving.
NPO.
Advance diet as able tube feedings.
Aspiration precautions, HOB > 30 degrees
-
Coffee-ground emesis: Likely bleeding from his tongue bite.
Stable hemoglobin.
No further oral bleeding
Decrease PPI to twice a day.
-
Continue PPI
Anemia: Status post 2 units of packed red blood cells With good response
GI has evaluated the patient: No indication for upper endoscopy at this point.
TORSTEN on CKD--Creat at baseline, renal consult
Worsening, possible dialysis today or tomorrow.
Nephrology following. Correspondence reviewed.
Follow volume status closely.
Daily BMPs
Monitor electrolytes
Leukocytosis resolved likely stress from seizures.
Afebrile
Sputum+ serratia, antibiotics will be transitioned to cefepime and complete additional 4 days.
History of PCN allergy
CBC stable, bleeding at mouth-resolved.
Hemoglobin stable after 2 units of packed red blood cells.
-
DVT prophylaxis -heparin subcu
TSH 204, myxedema coma
Continue IV Synthroid 50 mcg . Endocrinology correspondence reviewed.
Decrease hydrocortisone to twice a day. Hopefully can discontinue in the next 48 hours. No evidence for adrenal insufficiency.
No prior known h/o diabetes or was thyroid disease
Will repeat TSH eventually
Prognosis guarded

Diagnostic Data
Chest X-Ray: 05/14/24- Endotracheal tube with tip at the zeenat. Consider retracting 2 cm. Nonspecific small left basilar opacity which partially obscures the hemidiaphragm. This could represent a small effusion and/or airspace consolidation.
CT Scan: AP 05/14/24- IMPRESSION:
1. Significantly limited study secondary to diffuse volume overload with infiltration of the intra-abdominal fat and absence of oral and intravenous contrast. No gross acute abnormalities appreciated.
2. Small bilateral pleural effusions and likely small pericardial effusion.
3. Small volume of ascites with diffuse infiltration of the mesenteric fat.
4. Probable cholelithiasis.
5. Extensive aortoiliac atherosclerotic disease with femoral-femoral bypass graft.
Echo: 03/26/24- Normal left ventricular size, wall thickness and systolic function. Left ventricular ejection fraction is 55-60% by visual assessment. Normal right ventricular size and function. Limited valvular interrogation. Small to moderate
pericardial effusion located near right ventricle without evidence of hemodynamic compromise. Compared to prior from March 19, 2024, on indirect [id number] comparison findings appear similar.
PFT's:
Reports and relevant images were personally reviewed.
-----
Critical Care time 32 mins -- The patient is admitted for acute critical illness for the treatment of vital organ failure and/or prevention of further life-threatening conditions. Total care includes time spent in review of history, physical exam,
medications, hemodynamic/ventilator parameters, laboratory data, imaging and discussion with house staff, pharmacy, respiratory therapy, landscape contractor, and nursing.
Subjective Dataa
Subjective Data
Date of Service:
Date of Service: May 18, 2024
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
Subjective:
Patient remains on mechanical ventilation.
Follow simple commands
Macroglossia improved
Review of Systems
General: Other ( difficult to obtain due to sedation/mechanical ventilation status)
Objective Data
Data Reviewed
Vital Signs / I&O / Oxygen:
Vital Signs
Temp Pulse Resp BP Pulse Ox
97.3 F 56 19 112/57 100
05/18/24 07:41 05/18/24 07:30 05/18/24 07:30 05/18/24 07:30 05/18/24 08:00
Intake and Output
05/17/24 05/18/24 05/19/24
06:59 06:59 06:59
Intake Total 1605.0 / 1632.5 777.5 / 845.0 357.5 / 357.5
Output Total 1275 / 1285 317 / 317 15 / 15
Balance 330.0 / 347.5 460.5 / 528.0 342.5 / 342.5
SaO2 [A/C] 100
SaO2 100
Nasal Cannula flow liters per 5
minute
Physical Exam
General: Comfortable and Other (NAD)
HEENT: Normocephalic, Anicteric, Moist Mucous Membranes, Other (macroglossia--improving slowly) and Other (malodorous oral care)
Cardiovascular: S1-S2, Regular Rhythm and Other (BL AKA)
Respiratory: Clear, Non-Labored Respirations and ET Tube
GI: Soft, Non Distended and Non Tender
Neurology: Lethargic, Non Verbal (sedated/intubated) and Other (Follow simple commands)
Skin: Warm, Dry and Other (Bilateral amputee)
Labs/Micro/Reports
Lab Data
05/18/24 03:18
05/18/24 03:18
Laboratory Results
05/18/24
08:17
pH 7.50 H
pCO2 22 L
pO2 134 H
HCO3 17.2 L
O2 Delivery Level
Microbiology
05/14/24 11:12 Blood/Venous Blood Culture - Preliminary
Positive culture in progress
05/14/24 11:12 Blood/Venous Gram Stain - Preliminary
05/14/24 09:21 Blood/Venous Blood Culture - Preliminary
No Growth in 4 days- Final report to follow
05/14/24 13:12 Tracheal Aspirate Respiratory Culture - Final
Serratia marcescens
05/14/24 13:12 Tracheal Aspirate Gram Stain - Final
05/14/24 11:34 Nose MRSA Screen - Final
No Methicillin Resistant Staphylococcus aureus isolated.
--- NOTE | 2024-05-18 12:00 | PTCARENOTE ---
systems reviewed. no new changes. pt still off cardene since this am. urine output remains minimal. waiting for call from family to approve dialysis per Dr Bains. REsp aware of potential travel for hd cath. Otherwise please refer to flowsheet.
--- NOTE | 2024-05-18 12:01 | W.PN.HOSP.TC ---
Today's Communication/Plan
-
Ventilatory support.
Wean off sedation as tolerates.
Continue IV Synthroid
IV antibiotics and aspiration precautions
Contemplating HD pending family decision
Cardene drip.
Supportive care including tube feeding
Total Critical Care Time_54___ minutes. I was immediately available to the patient and staff. I personally examined, reviewed labs, diagnostic images/reports, interpretations, treatment plans, discussed patient care with other providers and
family or caregivers (if patient is unable to make decisions), entered orders as appropriate and documented the medical record.
Assessment / Plan
Assessment / Plan
78yo M with PMHx of severe PAD s/p b/l AKA s/p fem-fem bypass, Hx of prostate CA, CAD s/p PCI, stage 1 sacral pressure wound, glaucoma, labile HTN, Hx of pericardial effusion, R solitary kidney, Hx of retroperitoneal fibrosis, renal artery stenosis,
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
CKD, also developed UGIB
Impression:
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
Ventilatory dependent respiratory failure secondary to above
-Intubated for airway protection and secondary to macroglossia
Nosocomial/aspiration pneumonia with Serratia in sputum
Hypertensive emergency.
Tongue laceration and bleeding.
Acute kidney injury on CKD.
Persistent metabolic acidosis/lactic acidosis.
Provoked generalized seizure.
Abnormal LFT.
Conditions prior to admission:
Chronic kidney disease
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
Solitary kidney.
Chronic hydronephrosis.
CAD.
Essential hypertension
PAD.
Renal CA with history of left nephrectomy.
Plan:
VDRF.
Remains intubated with no plan for SBT until improved severe macroglossia.
Continue light sedation.
Aspiration precautions.
Nosocomial/aspiration pneumonia
Sputum culture with Serratia.
Continue aspiration precautions.
Antibiotics transition from ceftriaxone to cefepime on 05/18.
Myxedema coma.
TSH over 200
Continue IV levothyroxine.
Continue and taper systemic steroids (baseline cortisol level within normal limits.
Hypertensive emergency.
Continue Cardene drip.
CAD by history. Echocardiogram 05/14 LVEF greater than 70%. Mild to moderate MR, mild to moderate AR, mild TR.
TORSTEN on CKD baseline persistent metabolic acidosis.
Azotemia.
Consideration of initiation of hemodialysis pending family decision
Continue enteral bicarbonate
New onset/provoked generalized seizure.
Neurology consultation.
MRI of the brain pending.
Initiated on Keppra 500 mg twice daily
Laceration tonic with hemorrhage
Acute on chronic anemia secondary to blood loss with low with hemoglobin 6.7.
Monitor closely
Transfuse to keep hemoglobin above 8
Continue IV PPI
Nutrition
NG tube in place.
Tube feeding Jevity 1.5
Aspiration precautions
Full code.
DVT prophylaxis subcu heparin
Anticipated Discharge: > 48 hours
Subjective/Interval History
-
Date of Service: May 18, 2024
Objective Data
-
Labs:
Laboratory Results
05/18/24 05/18/24
03:18 08:17
WBC 8.8
Hgb 9.3 L
Hct 26.8 L
Plt Count 142
HCO3 17.2 L
Sodium 141
Potassium 4.3
Chloride 104
Carbon Dioxide 15 L
BUN 95 H
Creatinine 6.4 H*
Glucose 131 H
Calcium 7.4 L
Total Bilirubin 0.5
AST 39
ALT 44
Alkaline Phosphatase 28 L
Vital Signs:
Vital Signs
Temp Pulse Resp BP Pulse Ox
97.3 F 56 19 112/57 100
05/18/24 07:41 05/18/24 07:30 05/18/24 07:30 05/18/24 07:30 05/18/24 08:00
I&O
05/17/24 05/18/24 05/19/24
06:59 06:59 06:59
Intake Total 1605.0 / 1632.5 777.5 / 845.0 357.5 / 357.5
Output Total 1275 / 1285 317 / 317 15 / 15
Balance 330.0 / 347.5 460.5 / 528.0 342.5 / 342.5
Physical Exam
-
General: Well Developed and No Apparent Distress
HEENT: Normocephalic, Atraumatic and Moist Mucous Membranes
Respiratory: Clear to Auscultation
Cardiac: Regular Rhythm and S1/S2; Negative Murmur, Rub or Gallop
GI: Soft, Nontender, Nondistended and Normal Bowel Sounds; Negative Organomegaly
Rectal: Deferred by Provider
Musculoskeletal: No Clubbing, No Cyanosis and No Edema
Skin: Negative Rash
Neuro: Sedated
[2024-05-18] MEDS: MAXIPIME 5.65 MG IV (12:09)
[2024-05-18] MEDS: TYLENOL ORAL SOLUTION 650 MG TUBE ×3 (12:09→23:47)
[2024-05-18] MEDS: SUBLIMAZE 100 IV (14:55)
--- NOTE | 2024-05-18 15:04 | PTCARENOTE ---
cardene resumed for elevated bp as charted
[2024-05-18] MEDS: SODIUM BICARBONATE 650 MG TUBE ×2 (16:12→21:01)
--- NOTE | 2024-05-18 16:15 | PTCARENOTE ---
SYSTEMS REVIEWED. DEVANENE NOW OFF. NO OTHER CHANGES
[2024-05-18] MEDS: NSS (PRESERVATIVE FREE) 10 ML IV (19:24)
[2024-05-18] MEDS: HEPARIN 5000 UNITS SC (19:24)
[2024-05-18] MEDS: PROTONIX IV 40 MG IV (19:24)
--- NOTE | 2024-05-18 20:09 | PTCARENOTE ---
Cannot verify vitals prior to 1900, previous shift. Received patient intubated and on fentanyl gtt. PERRLA, 3 mm, blinks spontaneously. Patient follows simple commands, weak b/l hand grasps. Right hand mitt on. Tongue swollen, mouth care done and
oral moisturizer applied. Sinus khanh/normal sinus, 50s-60s with BBB. Palpable radial pulses bilaterally, +2 generalized anasarca. Normothermic, BP 140s-180s, cardene gtt on for an hour, now off for SBP 141. 7.5 ETT, 26 at the lip, lung sounds
diminished throughout. Small amount of curry secretions. Vent settings 10/400/30%/5, saturating 99%. Peak pressures 20-30s. Abdomen soft, round, hyperactive bowel sounds. Right nare [place] sump, jevity 1.5 at goal of 40 ml/hr. Stevenson in place draining
yellow urine, oliguric. Foam on sacrum CDI, desenex applied. Right DL PICC patent, WNL, fent gtt ongoing. Family at bedside stated she wishes to wait to make a decision about dialysis until patient can have a say in his own care. Patient
repositioned, hourly rounding and patient safety checks ongoing.
[2024-05-19] VITALS (54 sets, daily range): BP systolic 112–210; BP diastolic 60–149; BMI 20.5; BMI 20.4
--- NOTE | 2024-05-19 00:02 | PTCARENOTE ---
Bolus for pain given, see MAR. Patient repositioned, mouth care done. On and off cardene gtt for SBP>160. Otherwise patient assessment unchanged from previous.
[2024-05-19] MEDS: SUBLIMAZE 50 MCG IV ×3 (02:16→04:59)
[2024-05-19 03:50] LABS: Hematocrit 25.4 % (39.0-52.0); Hemoglobin 8.5 g/dL (13.0-18.0); Mean Corp Hgb Conc. 33.5 g/dL (33.0-37.0); Mean Corpuscular Hgb 28.8 pg (27.0-31.0); Mean Corpuscular Volume 86.1 fL (80.0-94.0); Mean Platelet Volume 11.6 fL (7.4-10.4); Platelet Count 140 10^3/uL (130-400); Red Blood Cell Count 2.95 10^6/uL (4.70-6.10); Red Cell Dist. Width 14.7 % (11.5-14.5); White Blood Cell Count 9.3 10^3/uL (4.8-10.8)
[2024-05-19 04:17] LABS: Blood Urea Nitrogen 103 mg/dl (9-20); Carbon Dioxide 19 mmol/L (22-30); Chloride 104 mmol/L (98-107); Estimated Creatinine Clearance 7 ml/min; Glucose 242 mg/dl (70-99); Potassium 4.3 mmol/L (3.5-5.1); Sodium 143 mmol/L (135-145)
--- NOTE | 2024-05-19 05:04 | PTCARENOTE ---
CHG bath done, mouth care done, repositioned. Peak pressures in the 50s, low volumes, RT to bedside. Bagged and suctioned patient, large mucus plug and lots of little plugs removed. Peak pressures improved to 20s-30s, volumes 380s-400s. Otherwise
patient assessment unchanged from previous.
[2024-05-19] MEDS: TYLENOL ORAL SOLUTION 650 MG TUBE ×4 (05:16→23:22)
[2024-05-19] MEDS: SOLU-CORTEF 50 MG IV (05:16)
--- NOTE | 2024-05-19 07:20 | PTCARENOTE ---
Bedside handoff. Pt opened his eyes to verbal stimulation with bilateral soft wrist restraints. He nodded his head to simple questions. Right DL PICC with Fentanyl 50mcg/hr, other port capped. #7.5 ETT secured 24cm centered. Tolerating current vent
settings. Stevenson secured draining scant amount yellow urine. Right nare [place] sump tube secured 65cm, tolerating tube feeds. Aspiration precautions maintained.
[2024-05-19] MEDS: CALCIUM GLUCONATE 100 IV (08:36)
[2024-05-19] MEDS: ALPHAGAN P 0.15% EYE DROPS 1 DROP BOTH EYES (08:37)
[2024-05-19] MEDS: DESENEX/MITRAZOL/ZEASORB 1 APPLIC TOPICAL ×2 (08:38→19:09)
[2024-05-19] MEDS: HEPARIN 5000 UNITS SC ×2 (08:38→19:09)
[2024-05-19] MEDS: KEPPRA 500 MG IV (08:39)
[2024-05-19] MEDS: MIRALAX 17 GRAMS TUBE (08:40)
[2024-05-19] MEDS: NSS (PRESERVATIVE FREE) 10 ML IV ×2 (08:41→19:09)
[2024-05-19] MEDS: PROTONIX IV 40 MG IV ×2 (08:41→19:09)
[2024-05-19] MEDS: LEVOTHROID 50 MCG IV (08:41)
[2024-05-19] MEDS: SODIUM BICARBONATE 650 MG TUBE ×3 (08:42→23:13)
[2024-05-19] MEDS: TRUSOPT 2% OPHTHALMIC SOLUTION 1 DROP BOTH EYES ×2 (08:43→19:10)
--- NOTE | 2024-05-19 10:32 | W.PN.NEPH.PH ---
Addendum entered and electronically signed by Palak Hernandez MD 05/19/24 11:41:
family called back and agreed with HD
IR consulted for tunneled HD catheter
Original Note:
Today's Communication / Plan
-
HD when family agrees
Assessment/Plan
-
Impression:
HTN emergency
Suspected seizures with tongue bite
Acute respiratory failure -VDRF
Elevated troponin, most likely non-ischemic cardiac injury
Hx of pericardial effusion s/p pericardiocentesis
Recent abdominal discomfort
TORSTEN on CKD stage 5 -cr mid 4s in Mar
mixed acid base disorder-HAGMA and elevated lactate
Alkalemia with primary rep alkalosis
Macroglossia-severe hypothyroidism
Transaminitis
PAD s/p b/l AKA and femoral stents
Renal artery stenosis of solitary kidney-deemed not a candidate for renal artery revasc with poor vascular
Hx of prostate CA
HLD
Glaucoma
Hx of GIB
CHronic anemia
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
Stage 1 sacral wound
Diverticulosis
Coronary artery disease
Renal cancer with history of left nephrectomy
He also with MGUS supposed to see heme out pt but never happened for BM biopsy
Plan:
will need HD
pending family decision, pt nods head for yes but wants family to be part of decision too
called niece but VM was full then called anastasiia(second contact) to reach out to her
previous discussions -AVF/G is not a concern now as it is an elective procedure and would not occur for some time
IV synthroid
BP labile off nicardene gtt, prn hydralazine
met acidosis better with po bicarb
but mild alkalemia from primary resp alkalosis
his wts are up and remains intubated, gen anasarca and failed diuretic
follow Hgb
critical care time 31 minutes
d/w nursing
-
-
Date of Service: May 19, 2024
CC / HPI / ROS
-
Chief Complaint:
TORSTEN with CKD4
History of Present Illness:
TORSTEN/Cr up to 6.6, BUN 103
failed lasix trial yesterday 80mgIV
oligoanuric with alicea
BP labile off cardene gtt
on vent,
hgb stable
remains with acidosis 15
Review of Systems:
remains intubated , FIo2 30%
nods head to questions
follows simple commands
Labs
-
Labs:
WBC 9.3 10^3/uL (4.8-10.8) 05/19/24 03:33
RBC 2.95 10^6/uL (4.70-6.10) L 05/19/24 03:33
Hgb 8.5 g/dL (13.0-18.0) L 05/19/24 03:33
Hct 25.4 % (39.0-52.0) L 05/19/24 03:33
Plt Count 140 10^3/uL (130-400) 05/19/24 03:33
Sodium 143 mmol/L (135-145) 05/19/24 03:33
Potassium 4.3 mmol/L (3.5-5.1) 05/19/24 03:33
Chloride 104 mmol/L (98-107) 05/19/24 03:33
Carbon Dioxide 19 mmol/L (22-30) L 05/19/24 03:33
BUN 103 mg/dl (9-20) H* 05/19/24 03:33
Creatinine 6.6 mg/dL (0.7-1.3) H* 05/19/24 03:33
eGFR 7.90 05/19/24 03:33
Glucose 242 mg/dl (70-99) H 05/19/24 03:33
Calcium 7.0 mg/dl (8.4-10.2) L 05/19/24 03:33
Mch-F-Hfnrhvttjis Pept 6600 pg/ml 05/16/24 03:30
Albumin 3.0 g/dl (3.5-5.0) L 05/18/24 03:18
Physical Exam
-
Vital Signs:
Vital Signs
Temp Pulse Resp BP Pulse Ox
97.3 F 57 10 182/84 100
05/19/24 07:49 05/19/24 09:30 05/19/24 09:30 05/19/24 09:30 05/19/24 09:30
Cardiovascular:: Regular rate and rhythm
Respiratory:: Bilateral: Coarse
Lung Excursion:: Abnormal
Abdomen:: Nontender and Soft
Extremity Edema:: None: Bilateral: (bilat AKA)
Alicea Catheter: Yes
Other Findings::
gen anasarca
--- NOTE | 2024-05-19 11:27 | W.PN.INTV ---
Today's Communication / Plan
Recommendations
Dialysis today
After the first dialysis spontaneous breathing trial
Continue mechanical ventilation without change
Continue antihypertensive
Continue IV antibiotics
ET tube suction as per protocol
Follow H&H
Follow electrolytes
Assessment
-
Patient is an 78-year-old male with previous history of severe PAD status post bilateral AKA, bilateral femorofemoral bypass, history of prostate cancer, CAD status post PCI, sacral pressure wound, labile hypertension, history of right solitary
kidney, renal artery stenosis presenting after being found by family unresponsive, 'covered in blood.' Niece states that he went to bed the night before without any issue except he noted abdominal pain. She did not recall his mouth being swollen.
She found him unresponsive this a.m. blood on chest and across the room, stemming from his mouth. EMS called, on arrival he had witnessed seizure. In the ER, blood pressure greater than 220 he was intubated for airway protection, he had notable
tongue lacerations. TSH is 204. He has no prior history of thyroid disease. Admitted to ICU.
Acute myxedema coma
Unresponsiveness
Witnessed tonic clonic seizure en route
Severe macroglossia s/p intubation (originally with at least 1.5-2' protrusion from lips)
Required intubation and mechanical ventilation for airway protection.
Hypertensive emergency >220 on arrival
Tongue laceration with oral bleeding
Metabolic acidosis
Lactic acidosis
Elevated LFTs
Serratia PNA
Continuous dark emesis from NG likely Ileus, CT AP neg
TORSTEN on CKD, likely to need HD
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
[place] lambda light chains
CKI 2/2 multiple etiologies including renal artery stenosis 60% on solitary kidney
Penis and right upper extremity edema/volume overload
Chronic hydronephrosis
History of Cystitis
Pericardial and pleural effusion
Coronary artery disease
Hypertension
Peripheral vascular disease
Renal cancer with history of left nephrectomy
Plan
Mental status improved, now following commands.
No further seizures.
Neurology following: Continue Keppra
MRI pending
-
Hemodynamically stable, not requiring pressors.
Cardiac history reviewed--HTN, CAD/PAD,
Continue oral antihypertensive
Cardene will be used for blood pressure control as well-will be used as needed.
Echocardiogram 05/14/2024: Moderate size pericardial effusion without evidence of hemodynamic compromise. Pleural effusion present. Moderate asymmetric left ventricular hypertrophy with underfilled left ventricular cavity. No regional wall motion
abnormalities. Mild to moderate MR. Mild to moderate AR. Mild TR.
Monitor on telemetry
Intubated, for airway protection due to macroglossia.
Vent setting reviewed: AC 400/+
Prior history of lung disease: none known.
ABG with alkalosis. Respiratory rate adjusted.
Supplemental O2 as indicated to maintain sats > 89%
Continuous suctioning for secretion
-
CXR/CT reviewed indicating stable findings compared to prior imaging
Ready for spontaneous breathing trial, macroglossia significantly improved.
Will be held as he will be starting dialysis hopefully today.
Will try spontaneous breathing trial after first dialysis. Patient is volume overloaded as well.
NPO.
Advance diet as able tube feedings.
Aspiration precautions, HOB > 30 degrees
-
Coffee-ground emesis: Likely bleeding from his tongue bite.
Stable hemoglobin.
No further oral bleeding
Continue PPI for now
-
Anemia: Status post 2 units of packed red blood cells With good response
GI has evaluated the patient: No indication for upper endoscopy at this point.
TORSTEN on CKD--Creat at baseline, nephrology following the patient.
Case discussed.
Follow volume status closely.
Daily BMPs
Monitor electrolytes
Dialysis today
Leukocytosis resolved likely stress from seizures.
Afebrile
Sputum+ serratia, antibiotics will be transitioned to cefepime and complete additional 4 days.
History of PCN allergy
-
DVT prophylaxis -heparin subcu
TSH 204, myxedema coma
Continue IV Synthroid 50 mcg . Endocrinology correspondence reviewed.
Decrease hydrocortisone to twice a day. Discontinue steroids today 05/19/2024 per.
No prior known h/o diabetes or was thyroid disease
Will repeat TSH eventually
Prognosis guarded

Diagnostic Data
Chest X-Ray: 05/14/24- Endotracheal tube with tip at the zeenat. Consider retracting 2 cm. Nonspecific small left basilar opacity which partially obscures the hemidiaphragm. This could represent a small effusion and/or airspace consolidation.
CT Scan: AP 05/14/24- IMPRESSION:
1. Significantly limited study secondary to diffuse volume overload with infiltration of the intra-abdominal fat and absence of oral and intravenous contrast. No gross acute abnormalities appreciated.
2. Small bilateral pleural effusions and likely small pericardial effusion.
3. Small volume of ascites with diffuse infiltration of the mesenteric fat.
4. Probable cholelithiasis.
5. Extensive aortoiliac atherosclerotic disease with femoral-femoral bypass graft.
Echo: 03/26/24- Normal left ventricular size, wall thickness and systolic function. Left ventricular ejection fraction is 55-60% by visual assessment. Normal right ventricular size and function. Limited valvular interrogation. Small to moderate
pericardial effusion located near right ventricle without evidence of hemodynamic compromise. Compared to prior from March 19, 2024, on indirect [id number] comparison findings appear similar.
PFT's:
Reports and relevant images were personally reviewed.
-----
Critical Care time 33 mins -- The patient is admitted for acute critical illness for the treatment of vital organ failure and/or prevention of further life-threatening conditions. Total care includes time spent in review of history, physical exam,
medications, hemodynamic/ventilator parameters, laboratory data, imaging and discussion with house staff, pharmacy, respiratory therapy, composite bond worker, and nursing.
Subjective Dataa
Subjective Data
Date of Service:
Date of Service: May 19, 2024
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
Subjective:
Remains on mechanical ventilation
Following commands
On low-dose sedation
Review of Systems
General: Unobtainable - Sedation (Intubated)
Objective Data
Data Reviewed
Vital Signs / I&O / Oxygen:
Vital Signs
Temp Pulse Resp BP Pulse Ox
97.3 F 67 14 143/80 99
05/19/24 07:49 05/19/24 11:00 05/19/24 11:00 05/19/24 11:00 05/19/24 11:00
Intake and Output
05/18/24 05/19/24 05/20/24
06:59 06:59 06:59
Intake Total 777.5 / 845.0 1570.0 / 1615.0 405 / 405
Output Total 317 / 317 190 / 200 72 / 72
Balance 460.5 / 528.0 1380.0 / 1415.0 333 / 333
SaO2 [CPAP/PSV] 100
SaO2 [A/C] 100
SaO2 99
Nasal Cannula flow liters per 5
minute
Physical Exam
General: Comfortable and Other (NAD)
HEENT: Normocephalic, Anicteric, Moist Mucous Membranes, Other (macroglossia--much improved today.) and Other (malodorous oral care)
Cardiovascular: S1-S2, Regular Rhythm and Other (BL AKA)
Respiratory: Clear, Non-Labored Respirations and ET Tube
GI: Soft, Non Distended and Non Tender
Neurology: Lethargic, Non Verbal (sedated/intubated) and Other (Follow simple commands)
Skin: Warm, Dry and Other (Bilateral amputee)
Labs/Micro/Reports
Lab Data
05/19/24 03:33
05/19/24 03:33
Microbiology
05/14/24 11:12 Blood/Venous Blood Culture - Preliminary
Positive culture in progress
05/14/24 11:12 Blood/Venous Gram Stain - Preliminary
05/14/24 09:21 Blood/Venous Blood Culture - Final
No Growth - Final Report
05/14/24 13:12 Tracheal Aspirate Respiratory Culture - Final
Serratia marcescens
05/14/24 13:12 Tracheal Aspirate Gram Stain - Final
--- NOTE | 2024-05-19 11:31 | CM ---
CM following re: discharge planning.
Reviewed pt's chart, met with pt.
Per chart review, pt remains intubated, short weaning trial today, continue supportive care.
Pt lives with niece in a 2SH and niece stated she is next of kin.
D/C plan: uncertain at this time and will depend on pt's progress.
CM will follow with discharge plan updates as hospitalization progress.
[2024-05-19 12:02] LABS: Glucose - Point of Care 238 mg/dl (70-99)
[2024-05-19] MEDS: MAXIPIME 5.65 MG IV (12:20)
[2024-05-19] MEDS: NOVOLOG FLEXPEN-LOW RESISTANCE 2 UNITS SC (12:21)
--- NOTE | 2024-05-19 13:55 | W.PN.HOSP.TC ---
Today's Communication/Plan
-
Continue ventilatory support
IV antibiotics covering aspiration and nosocomial pneumonia.
Plan for initiation of hemodialysis after HD catheter placement by interventional radiology on 05/20.
Wean off sedation per
Continue tube feeding with aspiration precautions per
Continue IV corticosteroids and levothyroxine.
Total Critical Care Time___45__ minutes. I was immediately available to the patient and staff. I personally examined, reviewed labs, diagnostic images/reports, interpretations, treatment plans, discussed patient care with other providers and
family or caregivers (if patient is unable to make decisions), entered orders as appropriate and documented the medical record.
Assessment / Plan
Assessment / Plan
78yo M with PMHx of severe PAD s/p b/l AKA s/p fem-fem bypass, Hx of prostate CA, CAD s/p PCI, stage 1 sacral pressure wound, glaucoma, labile HTN, Hx of pericardial effusion, R solitary kidney, Hx of retroperitoneal fibrosis, renal artery stenosis,
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
CKD, also developed UGIB
Impression:
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
Ventilatory dependent respiratory failure secondary to above
-Intubated for airway protection and secondary to macroglossia
Nosocomial/aspiration pneumonia with Serratia in sputum
Hypertensive emergency.
Tongue laceration and bleeding.
Acute kidney injury on CKD.
Persistent metabolic acidosis/lactic acidosis.
Provoked generalized seizure.
Abnormal LFT.
Conditions prior to admission:
Chronic kidney disease
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
Solitary kidney.
Chronic hydronephrosis.
CAD.
Essential hypertension
PAD.
Renal CA with history of left nephrectomy.
Plan:
VDRF.
Remains intubated with no plan for SBT until improved severe macroglossia.
Continue light sedation.
Aspiration precautions.
Nosocomial/aspiration pneumonia
Sputum culture with Serratia.
Continue aspiration precautions.
Antibiotics transition from ceftriaxone to cefepime on 05/18.
Myxedema coma.
TSH over 200
Continue IV levothyroxine.
Continue and taper systemic steroids (baseline cortisol level within normal limits.
Hypertensive emergency.
Continue Cardene drip.
CAD by history. Echocardiogram 05/14 LVEF greater than 70%. Mild to moderate MR, mild to moderate AR, mild TR.
TORSTEN on CKD baseline persistent metabolic acidosis.
Azotemia.
Family agreed for dialysis. Tentatively plan for HD catheter placement on 05/20 with initiation of HD.
Continue enteral bicarbonate
New onset/provoked generalized seizure.
Neurology consultation.
MRI of the brain pending.
Initiated on Keppra 500 mg twice daily
Laceration tonic with hemorrhage
Acute on chronic anemia secondary to blood loss with low with hemoglobin 6.7.
Monitor closely
Transfuse to keep hemoglobin above 8
Continue IV PPI
Nutrition
NG tube in place.
Tube feeding Jevity 1.5
Aspiration precautions
Full code.
DVT prophylaxis subcu heparin
Anticipated Discharge: > 48 hours
Subjective/Interval History
-
Date of Service: May 19, 2024
Objective Data
-
Labs:
Laboratory Results
05/19/24
03:33
WBC 9.3
Hgb 8.5 L
Hct 25.4 L
Plt Count 140
Sodium 143
Potassium 4.3
Chloride 104
Carbon Dioxide 19 L
BUN 103 H*
Creatinine 6.6 H*
Glucose 242 H
Calcium 7.0 L
Vital Signs:
Vital Signs
Temp Pulse Resp BP Pulse Ox
98.0 F 71 12 137/75 100
05/19/24 11:59 05/19/24 12:00 05/19/24 12:00 05/19/24 12:00 05/19/24 12:56
I&O
05/18/24 05/19/24 05/20/24
06:59 06:59 06:59
Intake Total 777.5 / 845.0 1570.0 / 1615.0 445 / 445
Output Total 317 / 317 190 / 200 72 / 72
Balance 460.5 / 528.0 1380.0 / 1415.0 373 / 373
Physical Exam
-
General: Well Developed and No Apparent Distress
HEENT: Normocephalic, Atraumatic and Moist Mucous Membranes
Respiratory: Clear to Auscultation
Cardiac: Regular Rhythm and S1/S2; Negative Murmur, Rub or Gallop
GI: Soft, Nontender, Nondistended and Normal Bowel Sounds; Negative Organomegaly
Rectal: Deferred by Provider
Musculoskeletal: No Clubbing, No Cyanosis and No Edema
Skin: Negative Rash
Neuro: Sedated
[2024-05-19] MEDS: APRESOLINE 10 MG IV ×2 (14:21→18:23)
[2024-05-19] MEDS: LANTUS 0.1 UNITS SC (14:49)
--- NOTE | 2024-05-19 14:51 | W.PN.UPDATE ---
Update Note
Progress Note Update
Dialysis has been postponed until tomorrow.
Hold off on a spontaneous breathing trial until first dialysis session.
Continue mechanical ventilation without change
--- NOTE | 2024-05-19 14:52 | PTCARENOTE ---
Pt awake, mouthing words, and attempting to write. He was updated on the plan of care regarding catheter placement, hemodialysis, and hopefully extubated tomorrow. He nodded his head in understanding. Safe environment maintained. Will continue to
monitor.
[2024-05-19 14:58] LABS: Glucose - Point of Care 248 mg/dl (70-99)
[2024-05-19] MEDS: SENOKOT-S 1 TABLET TUBE (16:35)
--- NOTE | 2024-05-19 16:46 | PTCARENOTE ---
Repositioned, PM care provided. He is consistently following commands. He again was updated regarding plans for HD catheter insertion and HD tomorrow and then will hopefully be able to remove his ETT. He nodded his head in understanding. Supportive
care given.
[2024-05-19] MEDS: NOVOLOG FLEXPEN-LOW RESISTANCE 1 UNITS SC ×2 (17:43→23:18)
[2024-05-19 17:52] LABS: Glucose - Point of Care 184 mg/dl (70-99)
--- NOTE | 2024-05-19 19:53 | PTCARENOTE ---
Received patient intubated in bed. Follows commands, denying pain, PERRLA 3, sluggish. Normal sinus, 70s, BP 150s/60s. +2 generalized anasarca, normothermic, palpable radial pulses b/l. 7.5 ETT, 25 at the lip, saturating 100%. Vent settings
10/400/30%+5. Thick, curry secretions. Lung sounds coarse and diminished throughout, expiratory wheeze. Abdomen soft, round, hyperactive bowel sounds, constipation. Jevity 1.5 at goal. [address] in place draining yellow urine, oliguric. Foam on sacrum
CDI. Right DL PICC patent, WNL. Family at bedside.
[2024-05-19] MEDS: XALATAN OPHTHALMIC SOLUTION 1 DROP BOTH EYES (23:13)
[2024-05-19 23:27] LABS: Glucose - Point of Care 150 mg/dl (70-99)
--- NOTE | 2024-05-19 23:48 | PTCARENOTE ---
Patient had bowel movement, loose, brown. Cleaned up, sheets and gown changed. Stevenson care done, mouth care done, repositioned. Otherwise patient assessment unchanged from previous.
[2024-05-20] VITALS (53 sets, daily range): BP systolic 63–207; BP diastolic 46–105
[2024-05-20 03:43] LABS: Hematocrit 23.9 % (39.0-52.0); Hemoglobin 8.3 g/dL (13.0-18.0); Mean Corp Hgb Conc. 34.7 g/dL (33.0-37.0); Mean Corpuscular Hgb 29.3 pg (27.0-31.0); Mean Corpuscular Volume 84.5 fL (80.0-94.0); Mean Platelet Volume 11.1 fL (7.4-10.4); Platelet Count 116 10^3/uL (130-400); Red Blood Cell Count 2.83 10^6/uL (4.70-6.10); Red Cell Dist. Width 14.6 % (11.5-14.5); White Blood Cell Count 7.3 10^3/uL (4.8-10.8)
[2024-05-20 04:20] LABS: Blood Urea Nitrogen 110 mg/dl (9-20); Calcium 6.9 mg/dl (8.4-10.2); Carbon Dioxide 18 mmol/L (22-30); Chloride 106 mmol/L (98-107); Estimated Creatinine Clearance 6 ml/min; Glucose 156 mg/dl (70-99); Potassium 3.7 mmol/L (3.5-5.1); Sodium 144 mmol/L (135-145); Triglycerides 66 mg/dl (10-149); eGFR 7.49
[2024-05-20 05:48] LABS: Glucose - Point of Care 130 mg/dl (70-99)
[2024-05-20] MEDS: NOVOLOG FLEXPEN-LOW RESISTANCE SC ×4 (05:55→23:47)
[2024-05-20] MEDS: TYLENOL ORAL SOLUTION 650 MG TUBE ×2 (05:56→18:18)
--- NOTE | 2024-05-20 06:05 | PTCARENOTE ---
Transported to and from MRI without any issues. Patient had 3 BMs this shift, cleaned up, complete bed change, CHG bath done. Tube feed tubing changed. Otherwise patient assessment unchanged from previous.
[2024-05-20] MEDS: CALCIUM GLUCONATE 130 MG IV (06:28)
[2024-05-20] MEDS: HEPARIN 5000 UNITS SC ×2 (07:49→21:37)
[2024-05-20] MEDS: ALPHAGAN P 0.15% EYE DROPS 1 DROP BOTH EYES (07:49)
[2024-05-20] MEDS: KEPPRA 500 MG IV (07:51)
[2024-05-20] MEDS: LEVOTHROID 50 MCG IV (07:52)
[2024-05-20] MEDS: PROTONIX IV 40 MG IV (07:52)
[2024-05-20] MEDS: NSS (PRESERVATIVE FREE) 10 ML IV (07:52)
[2024-05-20] MEDS: TRUSOPT 2% OPHTHALMIC SOLUTION 1 DROP BOTH EYES ×2 (07:53→20:44)
[2024-05-20] MEDS: SODIUM BICARBONATE 650 MG TUBE ×3 (07:53→21:39)
[2024-05-20] MEDS: DESENEX/MITRAZOL/ZEASORB 1 APPLIC TOPICAL ×2 (09:35→20:43)
--- NOTE | 2024-05-20 09:39 | PTCARENOTE ---
According to [facility] pt will not be going for HD catheter until after 1pm. Dr. Hernandez notified.
--- NOTE | 2024-05-20 10:11 | PTCARENOTE ---
Discussed the plan of care with the care team. Right nare with curry secretions bubbling. Face washed, Pericare provided. Sutures to penis ANTON and intact.
[2024-05-20] MEDS: MIRALAX TUBE (11:10)
--- NOTE | 2024-05-20 11:13 | W.PN.HOSP.TC ---
Today's Communication/Plan
-
Pending dialysis catheter placement and HD
Continue vent support with hopeful SBT after HD.
Off sedation
Antibiotics
Nicardipine
Has been off IV steroids
IV levothyroxine
Assessment / Plan
Assessment / Plan
78yo M with PMHx of severe PAD s/p b/l AKA s/p fem-fem bypass, Hx of prostate CA, CAD s/p PCI, stage 1 sacral pressure wound, glaucoma, labile HTN, Hx of pericardial effusion, R solitary kidney, Hx of retroperitoneal fibrosis, renal artery stenosis,
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
CKD, also developed UGIB
Impression:
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
Ventilatory dependent respiratory failure secondary to above
-Intubated for airway protection and secondary to macroglossia
Nosocomial/aspiration pneumonia with Serratia in sputum
Hypertensive emergency.
Tongue laceration and bleeding.
Acute kidney injury on CKD.
Persistent metabolic acidosis/lactic acidosis.
Provoked generalized seizure.
Abnormal LFT.
Conditions prior to admission:
Chronic kidney disease
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
Solitary kidney.
Chronic hydronephrosis.
CAD.
Essential hypertension
PAD.
Renal CA with history of left nephrectomy.
Plan:
VDRF.
Remains intubated with no plan for SBT until improved severe macroglossia.
Continue light sedation.
Aspiration precautions.
Nosocomial/aspiration pneumonia
Sputum culture with Serratia.
Continue aspiration precautions.
Antibiotics transition from ceftriaxone to cefepime on 05/18.
Myxedema coma.
TSH over 200
Continue IV levothyroxine.
Continue and taper systemic steroids (baseline cortisol level within normal limits.
Hypertensive emergency.
Continue Cardene drip.
CAD by history. Echocardiogram 05/14 LVEF greater than 70%. Mild to moderate MR, mild to moderate AR, mild TR.
TORSTEN on CKD baseline persistent metabolic acidosis.
Azotemia.
Family agreed for dialysis. Tentatively plan for HD catheter placement on 05/20 with initiation of HD.
Continue enteral bicarbonate
New onset/provoked generalized seizure.
Neurology consultation.
MRI of the brain pending.
Initiated on Keppra 500 mg twice daily
Laceration tonic with hemorrhage
Acute on chronic anemia secondary to blood loss with low with hemoglobin 6.7.
Monitor closely
Transfuse to keep hemoglobin above 8
Continue IV PPI
Nutrition
NG tube in place.
Tube feeding Jevity 1.5
Aspiration precautions
Full code.
DVT prophylaxis subcu heparin
Anticipated Discharge: > 48 hours
Subjective/Interval History
-
Date of Service: May 20, 2024
Objective Data
-
Labs:
Laboratory Results
05/20/24
03:31
WBC 7.3
Hgb 8.3 L
Hct 23.9 L
Plt Count 116 L
Sodium 144
Potassium 3.7
Chloride 106
Carbon Dioxide 18 L
BUN 110 H*
Creatinine 6.9 H*
Glucose 156 H
Calcium 6.9 L*
Vital Signs:
Vital Signs
Temp Pulse Resp BP Pulse Ox
98.4 F 72 13 155/76 98
05/20/24 07:41 05/20/24 11:00 05/20/24 11:00 05/20/24 11:00 05/20/24 11:00
I&O
05/19/24 05/20/24 05/21/24
06:59 06:59 06:59
Intake Total 1570.0 / 1615.0 1525 / 1565 60 / 60
Output Total 190 / 200 298 / 328 150 / 150
Balance 1380.0 / 1415.0 1227 / 1237 -90 / -90
Physical Exam
-
General: Well Developed and No Apparent Distress
HEENT: Normocephalic, Atraumatic and Moist Mucous Membranes
Respiratory: Clear to Auscultation
Cardiac: Regular Rhythm and S1/S2; Negative Murmur, Rub or Gallop
GI: Soft, Nontender, Nondistended and Normal Bowel Sounds; Negative Organomegaly
Rectal: Deferred by Provider
Musculoskeletal: No Clubbing, No Cyanosis and No Edema
Skin: Negative Rash
Neuro: Other (Intubated)
--- NOTE | 2024-05-20 11:43 | W.PN.NEPH.PH ---
Today's Communication / Plan
-
HD today
Assessment/Plan
-
Impression:
HTN emergency
Suspected seizures with tongue bite
Acute respiratory failure -VDRF
Elevated troponin, most likely non-ischemic cardiac injury
Hx of pericardial effusion s/p pericardiocentesis
Recent abdominal discomfort
TORSTEN on CKD stage 5 -cr mid 4s in Mar
mixed acid base disorder-HAGMA and elevated lactate
Alkalemia with primary rep alkalosis
Macroglossia-severe hypothyroidism
Transaminitis
PAD s/p b/l AKA and femoral stents
Renal artery stenosis of solitary kidney-deemed not a candidate for renal artery revasc with poor vascular
Hx of prostate CA
HLD
Glaucoma
Hx of GIB
CHronic anemia
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
Stage 1 sacral wound
Diverticulosis
Coronary artery disease
Renal cancer with history of left nephrectomy
He also with MGUS supposed to see heme out pt but never happened for BM biopsy
Plan:
will need HD, for TC today
family and pt were agreeable as of 05/19
IV synthroid
BP labile off nicardene gtt, prn hydralazine
met acidosis on po bicarb
but mild alkalemia from primary resp alkalosis
his wts are up and remains intubated, gen anasarca and failed diuretic
follow Hgb
critical care time 31 minutes
-
-
Date of Service: May 20, 2024
CC / HPI / ROS
-
Chief Complaint:
TORSTEN with CKD4
History of Present Illness:
TORSTEN/Cr up to 6.9, BUN 110, lizzy low 6.9
failed lasix trial
oligoanuric with alicea
BP labile off cardene gtt
on vent,
hgb low 8.3
remains with acidosis 18-better
Review of Systems:
remains intubated , FIo2 30%
follows simple commands
Labs
-
Labs:
WBC 7.3 10^3/uL (4.8-10.8) 05/20/24 03:31
RBC 2.83 10^6/uL (4.70-6.10) L 05/20/24 03:31
Hgb 8.3 g/dL (13.0-18.0) L 05/20/24 03:31
Hct 23.9 % (39.0-52.0) L 05/20/24 03:31
Plt Count 116 10^3/uL (130-400) L 05/20/24 03:31
Sodium 144 mmol/L (135-145) 05/20/24 03:31
Potassium 3.7 mmol/L (3.5-5.1) 05/20/24 03:31
Chloride 106 mmol/L (98-107) 05/20/24 03:31
Carbon Dioxide 18 mmol/L (22-30) L 05/20/24 03:31
BUN 110 mg/dl (9-20) H* 05/20/24 03:31
Creatinine 6.9 mg/dL (0.7-1.3) H* 05/20/24 03:31
eGFR 7.49 05/20/24 03:31
Glucose 156 mg/dl (70-99) H 05/20/24 03:31
Calcium 6.9 mg/dl (8.4-10.2) L* 05/20/24 03:31
Usd-G-Gdxvtezdrvl Pept 6600 pg/ml 05/16/24 03:30
Albumin 3.0 g/dl (3.5-5.0) L 05/18/24 03:18
Physical Exam
-
Vital Signs:
Vital Signs
Temp Pulse Resp BP Pulse Ox
98.4 F 72 13 155/76 98
05/20/24 07:41 05/20/24 11:00 05/20/24 11:00 05/20/24 11:00 05/20/24 11:00
Cardiovascular:: Regular rate and rhythm
Lung Excursion:: Abnormal (decreased)
Abdomen:: Nontender and Soft
Alicea Catheter: Yes
Other Findings::
gen anasarca
[2024-05-20 12:22] LABS: Glucose - Point of Care 89 mg/dl (70-99)
--- NOTE | 2024-05-20 12:26 | W.PN.INTV ---
Today's Communication / Plan
Recommendations
Dialysis whenever possible
After first dialysis session, spontaneous breathing trial
Continue antibiotic
Start nebulizer for secretion clearance
Frequent suctioning
Nutritional support
Remains ICU level of care until extubated
Assessment
-
Patient is an 78-year-old male with previous history of severe PAD status post bilateral AKA, bilateral femorofemoral bypass, history of prostate cancer, CAD status post PCI, sacral pressure wound, labile hypertension, history of right solitary
kidney, renal artery stenosis presenting after being found by family unresponsive, 'covered in blood.' Niece states that he went to bed the night before without any issue except he noted abdominal pain. She did not recall his mouth being swollen.
She found him unresponsive this a.m. blood on chest and across the room, stemming from his mouth. EMS called, on arrival he had witnessed seizure. In the ER, blood pressure greater than 220 he was intubated for airway protection, he had notable
tongue lacerations. TSH is 204. He has no prior history of thyroid disease. Admitted to ICU.
Acute myxedema coma
Unresponsiveness
Witnessed tonic clonic seizure en route
Severe macroglossia s/p intubation (originally with at least 1.5-2' protrusion from lips)
Required intubation and mechanical ventilation for airway protection.
Hypertensive emergency >220 on arrival
Tongue laceration with oral bleeding
Metabolic acidosis
Lactic acidosis
Elevated LFTs
Serratia PNA
Continuous dark emesis from NG likely Ileus, CT AP neg
TORSTEN on CKD, likely to need HD
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
Naomi lambda light chains
CKI 2/2 multiple etiologies including renal artery stenosis 60% on solitary kidney
Penis and right upper extremity edema/volume overload
Chronic hydronephrosis
History of Cystitis
Pericardial and pleural effusion
Coronary artery disease
Hypertension
Peripheral vascular disease
Renal cancer with history of left nephrectomy
Plan
Mental status improved, now following commands.
Continues to require some sedation for comfort
-
No further seizures.
Patient follows commands.
Neurology following: Continue Keppra
MRI 05/20/2024:There is a small focus of moderate increased diffusion-weighted signal and decreased ADC signal in the medial left temporal lobe as described.
This could represent a small focus of acute to subacute infarction, although slightly less intense on diffusion-weighted images than generally expected.
No evidence of intracranial mass lesion or mass effect with no midline shift. No evidence for acute intracranial hemorrhage.
Paranasal sinus disease as described, raising concern for acute sinusitis with meniscal air-fluid levels in both maxillary sinuses. Please correlate clinically.
Fluid throughout the mastoid air cells bilaterally
-
Hemodynamically stable, not requiring pressors.
Cardiac history reviewed--HTN, CAD/PAD,
Continue oral antihypertensive
Cardene will be used for blood pressure control as well-will be used as needed.
Echocardiogram 05/14/2024: Moderate size pericardial effusion without evidence of hemodynamic compromise. Pleural effusion present. Moderate asymmetric left ventricular hypertrophy with underfilled left ventricular cavity. No regional wall motion
abnormalities. Mild to moderate MR. Mild to moderate AR. Mild TR.
Monitor on telemetry
Intubated, for airway protection due to macroglossia.
Vent setting reviewed: AC 400/+
Prior history of lung disease: none known.
Supplemental O2 as indicated to maintain sats > 89%
Continuous suctioning for secretion-patient has old blood suctioned.
Will start DuoNeb for secretion clearance 05/20/2024
Continue intermittent suctioning
-
CXR/CT reviewed indicating stable findings compared to prior imaging
Ready for spontaneous breathing trial, macroglossia significantly improved.
Will be held as he will be starting dialysis hopefull in the next 24 hours
Will try spontaneous breathing trial after first dialysis. Patient is volume overloaded as well.
NPO.
Tolerating tube feeding
Aspiration precautions, HOB > 30 degrees
-
Coffee-ground emesis: Likely bleeding from his tongue bite.
Stable hemoglobin.
No further oral bleeding
Continue PPI for now
-
Anemia: Status post 2 units of packed red blood cells With good response
GI has evaluated the patient: No indication for upper endoscopy at this point.
TORSTEN on CKD--Creat at baseline, nephrology following the patient.
Case discussed.
Dialysis whenever possible
Leukocytosis resolved likely stress from seizures.
Afebrile
Sputum+ serratia, antibiotics will be transitioned to cefepime and complete additional 4 days.
History of PCN allergy
Continues to have secretions but does not appear toxic
-
DVT prophylaxis -heparin subcu
TSH 204, myxedema coma
Continue IV Synthroid 50 mcg . Endocrinology correspondence reviewed.
Hydrocortisone discontinued 05/19/2024 per
No prior known h/o diabetes or was thyroid disease
Will repeat TSH eventually
Prognosis guarded

Diagnostic Data
Chest X-Ray: 05/14/24- Endotracheal tube with tip at the zeenat. Consider retracting 2 cm. Nonspecific small left basilar opacity which partially obscures the hemidiaphragm. This could represent a small effusion and/or airspace consolidation.
CT Scan: AP 05/14/24- IMPRESSION:
1. Significantly limited study secondary to diffuse volume overload with infiltration of the intra-abdominal fat and absence of oral and intravenous contrast. No gross acute abnormalities appreciated.
2. Small bilateral pleural effusions and likely small pericardial effusion.
3. Small volume of ascites with diffuse infiltration of the mesenteric fat.
4. Probable cholelithiasis.
5. Extensive aortoiliac atherosclerotic disease with femoral-femoral bypass graft.
Echo: 03/26/24- Normal left ventricular size, wall thickness and systolic function. Left ventricular ejection fraction is 55-60% by visual assessment. Normal right ventricular size and function. Limited valvular interrogation. Small to moderate
pericardial effusion located near right ventricle without evidence of hemodynamic compromise. Compared to prior from March 19, 2024, on indirect [id number] comparison findings appear similar.
PFT's:
Reports and relevant images were personally reviewed.
-----
Critical Care time 32mins -- The patient is admitted for acute critical illness for the treatment of vital organ failure and/or prevention of further life-threatening conditions. Total care includes time spent in review of history, physical exam,
medications, hemodynamic/ventilator parameters, laboratory data, imaging and discussion with house staff, pharmacy, respiratory therapy, buyers' agent, and nursing.
Subjective Dataa
Subjective Data
Date of Service:
Date of Service: May 20, 2024
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
Subjective:
No overnight events
Remains on mechanical ventilation
Waiting for dialysis.
Continues to have secretions through the ET tube.
Review of Systems
General: Other (Difficult to obtain due to ET tube status)
Objective Data
Data Reviewed
Vital Signs / I&O / Oxygen:
Vital Signs
Temp Pulse Resp BP Pulse Ox
98.4 F 72 13 163/89 99
05/20/24 07:41 05/20/24 11:00 05/20/24 11:00 05/20/24 12:00 05/20/24 12:05
Intake and Output
05/19/24 05/20/24 05/21/24
06:59 06:59 06:59
Intake Total 1570.0 / 1615.0 1525 / 1565 60 / 60
Output Total 190 / 200 298 / 328 162 / 162
Balance 1380.0 / 1415.0 1227 / 1237 -102 / -102
SaO2 [CPAP/PSV] 100
SaO2 [A/C] 100
SaO2 99
Nasal Cannula flow liters per 5
minute
Physical Exam
General: Comfortable and Other (NAD)
HEENT: Normocephalic, Anicteric, Moist Mucous Membranes, Other (macroglossia--much improved today.) and Other (malodorous oral care)
Cardiovascular: S1-S2, Regular Rhythm and Other (BL AKA)
Respiratory: Clear, Non-Labored Respirations and ET Tube
GI: Soft, Non Distended and Non Tender
Neurology: Lethargic, Non Verbal (sedated/intubated) and Other (Follow simple commands)
Skin: Warm, Dry and Other (Bilateral amputee)
Labs/Micro/Reports
Lab Data
05/20/24 03:31
05/20/24 03:31
Microbiology
05/14/24 11:12 Blood/Venous Blood Culture - Preliminary
Bacteroides intermedius
05/14/24 11:12 Blood/Venous Gram Stain - Preliminary
05/14/24 09:21 Blood/Venous Blood Culture - Final
No Growth - Final Report
--- NOTE | 2024-05-20 12:26 | CM ---
CM following re: discharge planning.
Discussed in Rounds, reviewed pt's chart, met with pt.
Per chart review, pt remains intubated, short weaning trial today after dialysis, continue supportive care.
Pt lives with niece in a 2SH and niece stated she is next of kin. 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
D/C plan: uncertain at this time and will depend on pt's progress.
CM will follow with discharge plan updates as hospitalization progress.
[2024-05-20] MEDS: TYLENOL ORAL SOLUTION TUBE (13:42)
[2024-05-20] MEDS: DUONEB 3 ML INH ×2 (15:07→19:58)
--- NOTE | 2024-05-20 15:55 | PTCARENOTE ---
Dr. Dimas notified that the pt in now in [facility] for HD catheter.
--- NOTE | 2024-05-20 16:55 | PTCARENOTE ---
Pt s/p right chest wall tunneled HD catheter placement. He is drowsy. PM care performed. Lungs CTA. Right nare DHT secured 65cm. Waiting for tube feed from the kitchen. Repositioned for comfort. Lungs CTA.
[2024-05-20] MEDS: DEXTROSE 50% SYRINGE 12.5 GRAMS IV ×2 (18:09→20:38)
[2024-05-20 18:16] LABS: Glucose - Point of Care 56 mg/dl (70-99)
[2024-05-20 18:37] LABS: Glucose - Point of Care 109 mg/dl (70-99)
[2024-05-20] MEDS: MANNITOL 25% 12.5 GRAMS IV ×2 (19:08→20:01)
[2024-05-20] MEDS: HEPARIN 500 UNITS IV (19:09)
[2024-05-20] MEDS: RETACRIT 8000 UNITS IV (19:11)
--- NOTE | 2024-05-20 19:20 | W.PN.NEPH.HD ---
Assessment
-
pt seen during HD
vitals stable
BP 170 range
UF as tolerates
plan HD again tomorrow
tunneled catheter function well
Progress Note - Hemodialysis
-
Date of Service: May 20, 2024
Duration: 2 hours
Potassium Bath: 2
Calcium Bath: 2.5
Opti-Dialyzer: 160
Blood Flow: 200
Dialysate Flow: Other (400)
Heparin: yesx2
EPO: 8000
[2024-05-20 19:36] LABS: Glucose - Point of Care 91 mg/dl (70-99)
[2024-05-20 20:40] LABS: Glucose - Point of Care 68 mg/dl (70-99)
--- NOTE | 2024-05-20 20:56 | PTCARENOTE ---
Received patient intubated and getting dialysis. Blinks spontaneously, follows commands, denies pain. Normal sinus 60s-70s, pressures labile while on dialysis. Palpable radial pulses bilaterally. Temp 96.7, warm blankets applied. +2 generalized
anasarca. 7.5 ETT, 24 at the lip. Lung sounds coarse throughout, expiratory wheeze. 100% on AC settings 10/400/30%+5. Thick curry oral secretions, mouth care done. Abdomen round, obese, hypoactive bowel sounds. Nepro carb steady started at 20 ml with
goal rate [address] draining yellow urine, oliguric. Foam on sacrum CDI. Right DL PICC patent, WNL. Right subclavian tunneled dialysis cath in use. Blood sugar 67, half amp of dextrose given and following hypoglycemic protocol. Family
updated at bedside.
[2024-05-20 21:13] LABS: Glucose - Point of Care 110 mg/dl (70-99)
[2024-05-20] MEDS: LANTUS SC (21:16)
[2024-05-20] MEDS: HEPARIN 4000 UNITS INTRACATH (21:17)
[2024-05-20] MEDS: APRESOLINE 10 MG IV (21:37)
[2024-05-20] MEDS: MAXIPIME 5.65 MG IV (21:39)
[2024-05-20] MEDS: XALATAN OPHTHALMIC SOLUTION 1 DROP BOTH EYES (21:39)
[2024-05-20] MEDS: SUBLIMAZE 50 MCG IV (22:38)
[2024-05-20 23:47] LABS: Glucose - Point of Care 84 mg/dl (70-99)
[2024-05-21] VITALS (53 sets, daily range): BP systolic 128–210; BP diastolic 61–120; BMI 20.7
[2024-05-21] MEDS: SUBLIMAZE 50 MCG IV (00:05)
--- NOTE | 2024-05-21 00:14 | PTCARENOTE ---
Fentanyl boluses given for pain, see MAR. Hydralazine given for BP>180. Repositioned, mouth care done. Otherwise patient assessment unchanged from previous.
[2024-05-21] MEDS: TRANDATE 10 MG IV (00:41)
[2024-05-21] MEDS: APRESOLINE 10 MG IV ×3 (01:14→20:06)
[2024-05-21 01:17] LABS: Glucose - Point of Care 134 mg/dl (70-99)
[2024-05-21 03:12] LABS: Glucose - Point of Care 100 mg/dl (70-99)
[2024-05-21 04:08] LABS: Mean Corp Hgb Conc. 34.6 g/dL (33.0-37.0); Mean Corpuscular Hgb 29.3 pg (27.0-31.0); Mean Corpuscular Volume 84.7 fL (80.0-94.0); Red Blood Cell Count 3.07 10^6/uL (4.70-6.10); Red Cell Dist. Width 14.6 % (11.5-14.5); White Blood Cell Count 10.8 10^3/uL (4.8-10.8)
--- NOTE | 2024-05-21 04:17 | PTCARENOTE ---
Patient given multiple boluses of fentanyl for pain, hydralazine x3 and labetalol for hypertension. CHG bath done, alicea care done, mouth care done. Sheets changed, tube feed advanced to goal. Otherwise patient assessment unchanged from previous.
[2024-05-21 04:45] LABS: Blood Urea Nitrogen 78 mg/dl (9-20); Calcium 7.9 mg/dl (8.4-10.2); Carbon Dioxide 20 mmol/L (22-30); Chloride 103 mmol/L (98-107); Estimated Creatinine Clearance 9 ml/min; Glucose 107 mg/dl (70-99); Potassium 3.8 mmol/L (3.5-5.1); Sodium 141 mmol/L (135-145)
[2024-05-21] MEDS: NOVOLOG FLEXPEN-LOW RESISTANCE SC ×3 (05:33→19:11)
[2024-05-21] MEDS: TYLENOL ORAL SOLUTION 650 MG TUBE ×3 (05:33→17:55)
[2024-05-21 05:39] LABS: Glucose - Point of Care 126 mg/dl (70-99)
[2024-05-21 05:39] LABS: Platelet Count 89 10^3/uL (130-400)
[2024-05-21] MEDS: DUONEB 3 ML INH ×3 (07:21→20:04)
--- NOTE | 2024-05-21 08:28 | PTCARENOTE ---
Received pt awake and alert with bilateral soft wrist restraints intact. He is writing letters in the air. I informed him of the plan to extubate today then get hemodialysis. He nodded his head in understanding and gave a thumbs up. Right DL PICC
capped, flushed and patent. +radial pulses. +3 anasarca. Bilateral upper extremities edematous R>L. Lungs CTA. #7.5 ETT 25 right lip. Tolerating current ventilator settings. Discussed weaning with Dr. Landeros, respiratory therapist notified. +BSX4.
Tolerating TF via right nare DHT. Stevenson secured. Sutures to foreskin BALCONY WORKER, area CDI. Repositioned for comfort. Safe environment maintained.
--- NOTE | 2024-05-21 08:40 | VATNOTE ---
Upon routine rounds right arm noted to have significant swelling. Left arm also swollen but right more than left. Brisk blood return noted from each lumen of PICC line. Findings reported to Dr. Haines and requested right upper extremity
ultrasound.
[2024-05-21] MEDS: PROTONIX IV 40 MG IV (08:53)
[2024-05-21] MEDS: ALPHAGAN P 0.15% EYE DROPS 1 DROP BOTH EYES (08:53)
[2024-05-21] MEDS: KEPPRA 500 MG IV (08:53)
[2024-05-21] MEDS: TRUSOPT 2% OPHTHALMIC SOLUTION 1 DROP BOTH EYES ×2 (08:53→20:04)
--- NOTE | 2024-05-21 08:53 | W.PN.NEPH.PH ---
Today's Communication / Plan
-
HD
Assessment/Plan
-
Impression:
HTN emergency
Suspected seizures with tongue bite
Acute respiratory failure -VDRF
Elevated troponin, most likely non-ischemic cardiac injury
Hx of pericardial effusion s/p pericardiocentesis
Recent abdominal discomfort
TORSTEN on CKD stage 5 -cr mid 4s in Mar
mixed acid base disorder-HAGMA and elevated lactate
Alkalemia with primary rep alkalosis
Macroglossia-severe hypothyroidism
Transaminitis
PAD s/p b/l AKA and femoral stents
Renal artery stenosis of solitary kidney-deemed not a candidate for renal artery revasc with poor vascular
Hx of prostate CA
HLD
Glaucoma
Hx of GIB
CHronic anemia
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
Stage 1 sacral wound
Diverticulosis
Coronary artery disease
Renal cancer with history of left nephrectomy
He also with MGUS supposed to see heme out pt but never happened for BM biopsy
Plan:
pt seems to understand some questions. Understands that he is on dialysis
HD today
prn meds for HTN, as BP drops on HD
follow hgb
continue TF until extubated
critical care time 31 minutes
-
-
Date of Service: May 21, 2024
CC / HPI / ROS
-
Chief Complaint:
TORSTEN with CKD4
History of Present Illness:
started HD yesterday, tolerated
oligoanuric with alicea
BP labile off cardene gtt
on vent, sedated but awake
hgb low stable
critically ill in ICU
Review of Systems:
remains intubated , FIo2 30%
follows simple commands
Labs
-
Labs:
WBC 10.8 10^3/uL (4.8-10.8) 05/21/24 03:54
RBC 3.07 10^6/uL (4.70-6.10) L 05/21/24 03:54
Hgb 9.0 g/dL (13.0-18.0) L 05/21/24 03:54
Hct 26.0 % (39.0-52.0) L 05/21/24 03:54
Plt Count 89 10^3/uL (130-400) L D 05/21/24 03:54
Sodium 141 mmol/L (135-145) 05/21/24 03:54
Potassium 3.8 mmol/L (3.5-5.1) 05/21/24 03:54
Chloride 103 mmol/L (98-107) 05/21/24 03:54
Carbon Dioxide 20 mmol/L (22-30) L 05/21/24 03:54
BUN 78 mg/dl (9-20) H 05/21/24 03:54
Creatinine 4.9 mg/dL (0.7-1.3) H* 05/21/24 03:54
eGFR 11.30 05/21/24 03:54
Glucose 107 mg/dl (70-99) H 05/21/24 03:54
Calcium 7.9 mg/dl (8.4-10.2) L 05/21/24 03:54
Ixb-R-Aierelxbcio Pept 6600 pg/ml 05/16/24 03:30
Albumin 3.0 g/dl (3.5-5.0) L 05/18/24 03:18
Physical Exam
-
Vital Signs:
Vital Signs
Temp Pulse Resp BP Pulse Ox
97.5 F 79 14 172/75 99
05/21/24 07:00 05/21/24 08:45 05/21/24 08:45 05/21/24 08:00 05/21/24 08:45
Cardiovascular:: Regular rate and rhythm
Respiratory:: Bilateral: Coarse
Lung Excursion:: Normal
Abdomen:: Nontender and Soft
Bowel Sounds:: Normal
Extremity Edema:: +3: Bilateral:
[2024-05-21] MEDS: LEVOTHROID 50 MCG IV (08:54)
[2024-05-21] MEDS: SENOKOT-S 1 TABLET TUBE (08:54)
[2024-05-21] MEDS: DESENEX/MITRAZOL/ZEASORB 1 APPLIC TOPICAL ×2 (08:54→20:03)
[2024-05-21] MEDS: SODIUM BICARBONATE 650 MG TUBE ×3 (08:54→22:42)
[2024-05-21] MEDS: NSS (PRESERVATIVE FREE) 10 ML IV (08:54)
[2024-05-21 09:46] LABS: B.E. -2.5 mmol/L; HCO3 21.1 mmol/L (21-28); O2 Saturation % 99.6 % (94-98); PCO2 31 mmHg (35-48); PO2 135 mmHg (83-108); pH 7.44 (7.35-7.45)
--- NOTE | 2024-05-21 10:00 | PTCARENOTE ---
Extubated as ordered with RPT to 3 liters nasal cannula. Pt was instructed on the use of the Yankauer again to help manage his secretions due to his swollen tongue. He was able to demonstrate. Bilateral wrist restraints removed at this time. Will
continue to monitor.
--- NOTE | 2024-05-21 10:05 | RESPNOTE ---
Respiratory: patient extubated @1000 without incident, no stridor no wheeze. SpO2 100% on 2.5 L nasal cannula.
--- NOTE | 2024-05-21 10:50 | CM ---
CM following re: discharge planning.
Discussed in Rounds, reviewed pt's chart, met with pt.
Pt successfully extubated this morning at 10:00 a., to 3L NC of O2, doing well, continue supportive care. HD today.
Per [employer] [place] [employer], pt will need outpatient HD treatment set up. Both pt and his family preferred [place] on [facility] midmorning shift.
CM made a referral to [facility] and pt's clinical with the request for [facility] faxed to [facility] at [phone].
PT and OT will evaluate the pt to determine a level of care at discharge.
Pt lives with niece in a 2SH and niece stated she is next of kin. 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
D/C plan: Awaiting for PT/OT evaluations. At this point home with outpatient HD treatment at [facility] on [facility] vs SNF if recommended by PT/OT.
CM will follow with discharge plan updates as hospitalization progress.
--- NOTE | 2024-05-21 11:47 | W.PN.INTV ---
Today's Communication / Plan
Recommendations
Extubate
Keep n.p.o. for now
Complete antibiotics today
Hemodialysis
Follow H&H
Keep NG tube for now until able to perform a speech evaluation
Check TSH tomorrow-continue IV Levothyroid
Assessment
-
Patient is an 78-year-old male with previous history of severe PAD status post bilateral AKA, bilateral femorofemoral bypass, history of prostate cancer, CAD status post PCI, sacral pressure wound, labile hypertension, history of right solitary
kidney, renal artery stenosis presenting after being found by family unresponsive, 'covered in blood.' Niece states that he went to bed the night before without any issue except he noted abdominal pain. She did not recall his mouth being swollen.
She found him unresponsive this a.m. blood on chest and across the room, stemming from his mouth. EMS called, on arrival he had witnessed seizure. In the ER, blood pressure greater than 220 he was intubated for airway protection, he had notable
tongue lacerations. TSH is 204. He has no prior history of thyroid disease. Admitted to ICU.
Acute myxedema coma
Unresponsiveness
Witnessed tonic clonic seizure en route
Severe macroglossia s/p intubation (originally with at least 1.5-2' protrusion from lips)
Required intubation and mechanical ventilation for airway protection.
Hypertensive emergency >220 on arrival
Tongue laceration with oral bleeding
Metabolic acidosis
Lactic acidosis
Elevated LFTs
Serratia PNA
Continuous dark emesis from NG likely Ileus, CT AP neg
TORSTEN on CKD, likely to need HD
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
[place] lambda light chains
CKI 2/2 multiple etiologies including renal artery stenosis 60% on solitary kidney
Penis and right upper extremity edema/volume overload
Chronic hydronephrosis
History of Cystitis
Pericardial and pleural effusion
Coronary artery disease
Hypertension
Peripheral vascular disease
Renal cancer with history of left nephrectomy
Plan
Mental status improved, now following commands.
Continues to require some sedation for comfort
-
Intubated, for airway protection due to macroglossia.
Vent setting reviewed: AC 400/+
Prior history of lung disease: none known.
Supplemental O2 as indicated to maintain sats > 89%
Continuous suctioning for secretion-patient has old blood suctioned.
Will start DuoNeb for secretion clearance 05/20/2024
Continue intermittent suctioning
-
CXR/CT reviewed indicating stable findings compared to prior imaging
Spontaneous breathing trial performed under my supervision today 05/21/2024. ABG with appropriate ventilation and oxygenation
Hemodynamically stable
Has a cough effort
Has a cuff leak
Extubate to oxygen. Close observation for airway compromise.
-
No further seizures.
Patient follows commands.
Neurology following: Continue Keppra
MRI 05/20/2024:There is a small focus of moderate increased diffusion-weighted signal and decreased ADC signal in the medial left temporal lobe as described.
This could represent a small focus of acute to subacute infarction, although slightly less intense on diffusion-weighted images than generally expected.
No evidence of intracranial mass lesion or mass effect with no midline shift. No evidence for acute intracranial hemorrhage.
Paranasal sinus disease as described, raising concern for acute sinusitis with meniscal air-fluid levels in both maxillary sinuses. Please correlate clinically.
Fluid throughout the mastoid air cells bilaterally
-
Hemodynamically stable, not requiring pressors.
Cardiac history reviewed--HTN, CAD/PAD,
Continue oral antihypertensive.
Echocardiogram 05/14/2024: Moderate size pericardial effusion without evidence of hemodynamic compromise. Pleural effusion present. Moderate asymmetric left ventricular hypertrophy with underfilled left ventricular cavity. No regional wall motion
abnormalities. Mild to moderate MR. Mild to moderate AR. Mild TR.
Monitor on telemetry
Fluid balance negative via dialysis
-
TSH 204, myxedema coma
Continue IV Synthroid 50 mcg . Endocrinology saw the patient once. Recommended outpatient follow-up
Hydrocortisone discontinued 05/19/2024
No prior known h/o diabetes or was thyroid disease
Repeat TSH tomorrow.
-
Coffee-ground emesis: Likely bleeding from his tongue bite.
Stable hemoglobin.
No further oral bleeding
Continue PPI for now
-
Anemia: Status post 2 units of packed red blood cells With good response
GI has evaluated the patient: No indication for upper endoscopy at this point.
TORSTEN on CKD--Creat at baseline, nephrology following the patient.
Dialysis since 05/20/2024.
Follow daily electrolytes
Leukocytosis resolved likely stress from seizures.
Afebrile
Sputum+ serratia, antibiotics will be transitioned to cefepime complete antibiotics today 05/21/2024
History of PCN allergy
Continues to have secretions but does not appear toxic
-
NPO.
Tolerating tube feeding
Eventual speech evaluation
Aspiration precautions, HOB > 30 degrees.
-
DVT prophylaxis -heparin subcu
Prognosis guarded

Diagnostic Data
Chest X-Ray: 05/14/24- Endotracheal tube with tip at the zeenat. Consider retracting 2 cm. Nonspecific small left basilar opacity which partially obscures the hemidiaphragm. This could represent a small effusion and/or airspace consolidation.
CT Scan: AP 05/14/24- IMPRESSION:
1. Significantly limited study secondary to diffuse volume overload with infiltration of the intra-abdominal fat and absence of oral and intravenous contrast. No gross acute abnormalities appreciated.
2. Small bilateral pleural effusions and likely small pericardial effusion.
3. Small volume of ascites with diffuse infiltration of the mesenteric fat.
4. Probable cholelithiasis.
5. Extensive aortoiliac atherosclerotic disease with femoral-femoral bypass graft.
Echo: 03/26/24- Normal left ventricular size, wall thickness and systolic function. Left ventricular ejection fraction is 55-60% by visual assessment. Normal right ventricular size and function. Limited valvular interrogation. Small to moderate
pericardial effusion located near right ventricle without evidence of hemodynamic compromise. Compared to prior from March 19, 2024, on indirect grsi-cd-olin comparison findings appear similar.
PFT's:
Reports and relevant images were personally reviewed.
-----
Critical Care time 31mins -- The patient is admitted for acute critical illness for the treatment of vital organ failure and/or prevention of further life-threatening conditions. Total care includes time spent in review of history, physical exam,
medications, hemodynamic/ventilator parameters, laboratory data, imaging and discussion with house staff, pharmacy, respiratory therapy, technical system analyst, and nursing.
Subjective Dataa
Subjective Data
Date of Service:
Date of Service: May 21, 2024
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
Subjective:
No overnight events
Tolerated dialysis.
Review of Systems
General: Fever (n) and Other (Difficult to obtain due to intubation status)
Objective Data
Data Reviewed
Vital Signs / I&O / Oxygen:
Vital Signs
Temp Pulse Resp BP Pulse Ox
98 F 79 15 172/75 99
05/21/24 11:06 05/21/24 09:17 05/21/24 09:17 05/21/24 08:00 05/21/24 11:06
Intake and Output
05/20/24 05/21/24 05/22/24
06:59 06:59 06:59
Intake Total 1525 / 1565 415 / 450 70 / 70
Output Total 298 / 328 332 / 342 20 / 20
Balance 1227 / 1237 83 / 108 50 / 50
SaO2 [CPAP/PSV] 99
SaO2 [A/C] 100
SaO2 99
Nasal Cannula flow liters per 3
minute
Physical Exam
General: Comfortable and Other (NAD)
HEENT: Normocephalic, Anicteric, Moist Mucous Membranes, Other (macroglossia--much improved today.) and Other (malodorous oral care)
Cardiovascular: S1-S2, Regular Rhythm and Other (BL AKA)
Respiratory: Clear, Non-Labored Respirations and ET Tube
GI: Soft, Non Distended and Non Tender
Neurology: Lethargic, Non Verbal (sedated/intubated) and Other (Follow simple commands)
Skin: Warm, Dry and Other (Bilateral amputee)
Labs/Micro/Reports
Lab Data
05/21/24 03:54
05/21/24 03:54
Laboratory Results
05/21/24
09:35
pH 7.44
pCO2 31 L
pO2 135 H
HCO3 21.1
O2 Delivery Level
Microbiology
05/14/24 11:12 Blood/Venous Blood Culture - Final
Bacteroides intermedius
05/14/24 11:12 Blood/Venous Gram Stain - Final
05/14/24 09:21 Blood/Venous Blood Culture - Final
No Growth - Final Report
[2024-05-21 12:01] LABS: Glucose - Point of Care 127 mg/dl (70-99)
[2024-05-21] MEDS: HEPARIN 5000 UNITS SC ×2 (12:01→20:07)
[2024-05-21] MEDS: COREG 6.25 MG TUBE ×2 (12:03→20:02)
[2024-05-21] MEDS: MANNITOL 25% 12.5 GRAMS IV ×2 (13:36→14:45)
[2024-05-21] MEDS: FLEXBUMIN 25% FOR HEMODIALYSIS 12.5 GRAMS IV ×2 (13:36→14:45)
--- NOTE | 2024-05-21 14:10 | W.PN.HOSP.TC ---
Today's Communication/Plan
-
Extubated to
Speech and swallow relation
Continue IV antibiotics per
IV levothyroxine following TSH
HD
Monitor blood pressure trend with HD volume management
Assessment / Plan
Assessment / Plan
78yo M with PMHx of severe PAD s/p b/l AKA s/p fem-fem bypass, Hx of prostate CA, CAD s/p PCI, stage 1 sacral pressure wound, glaucoma, labile HTN, Hx of pericardial effusion, R solitary kidney, Hx of retroperitoneal fibrosis, renal artery stenosis,
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
CKD, also developed UGIB
Impression:
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
Ventilatory dependent respiratory failure secondary to above
-Intubated for airway protection and secondary to macroglossia
Nosocomial/aspiration pneumonia with Serratia in sputum
Hypertensive emergency.
Tongue laceration and bleeding.
Acute kidney injury on CKD.
Persistent metabolic acidosis/lactic acidosis.
Provoked generalized seizure.
Abnormal LFT.
Conditions prior to admission:
Chronic kidney disease
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
Solitary kidney.
Chronic hydronephrosis.
CAD.
Essential hypertension
PAD.
Renal CA with history of left nephrectomy.
Plan:
VDRF.
Extubated on 05/21
Speech and swallow evaluation
Nosocomial/aspiration pneumonia
Sputum culture with Serratia.
Continue aspiration precautions.
Antibiotics transition from ceftriaxone to cefepime on 05/18.
Myxedema coma.
TSH over 200
Continue IV levothyroxine.
Corticosteroids tapered off
Hypertensive emergency.
Off Cardene drip
IV hydralazine/labetalol
Monitor BP with HD volume management
CAD by history. Echocardiogram 05/14 LVEF greater than 70%. Mild to moderate MR, mild to moderate AR, mild TR.
TORSTEN on CKD baseline persistent metabolic acidosis.
Azotemia.
Initiated on hemodialysis on 05/20
New onset/provoked generalized seizure.
Neurology consultation.
MRI of the brain pending.
Initiated on Keppra 500 mg twice daily
Laceration tonic with hemorrhage
Acute on chronic anemia secondary to blood loss with low with hemoglobin 6.7.
Monitor closely
Transfuse to keep hemoglobin above 8
Continue IV PPI
Nutrition
NG tube in place.
Speech and swallow evaluation postextubation
Full code.
DVT prophylaxis subcu heparin
Anticipated Discharge: > 48 hours
Subjective/Interval History
-
Date of Service: May 21, 2024
Objective Data
-
Labs:
Laboratory Results
05/21/24 05/21/24
03:54 09:35
WBC 10.8
Hgb 9.0 L
Hct 26.0 L
Plt Count 89 L D
HCO3 21.1
Sodium 141
Potassium 3.8
Chloride 103
Carbon Dioxide 20 L
BUN 78 H
Creatinine 4.9 H*
Glucose 107 H
Calcium 7.9 L
Vital Signs:
Vital Signs
Temp Pulse Resp BP Pulse Ox
98 F 88 18 187/97 98
05/21/24 11:06 05/21/24 13:36 05/21/24 13:36 05/21/24 12:03 05/21/24 13:36
I&O
05/20/24 05/21/24 05/22/24
06:59 06:59 06:59
Intake Total 1525 / 1565 415 / 450 315 / 315
Output Total 298 / 328 332 / 342 70 / 70
Balance 1227 / 1237 83 / 108 245 / 245
Physical Exam
-
General: Well Developed and No Apparent Distress
HEENT: Normocephalic, Atraumatic and Moist Mucous Membranes
Respiratory: Clear to Auscultation and Decreased Breath Sounds
Cardiac: Regular Rhythm and S1/S2; Negative Murmur, Rub or Gallop
GI: Soft, Nontender, Nondistended, Normal Bowel Sounds and Other (NG tube in place); Negative Organomegaly
Rectal: Deferred by Provider
Musculoskeletal: No Clubbing, No Cyanosis and Other (Bilateral AKA)
Skin: Negative Rash
Neuro: Awake, Alert, Oriented and Other (Intubated)
[2024-05-21] MEDS: HEPARIN 3900 UNITS INTRACATH (15:29)
[2024-05-21] MEDS: RETACRIT 6000 UNITS IV (15:40)
--- NOTE | 2024-05-21 16:45 | W.PN.NEPH.HD ---
Assessment
-
Seen on HD. just extubated. VSS access ok
Progress Note - Hemodialysis
-
Date of Service: May 21, 2024
Duration: 45 minutes and 2 hours
Potassium Bath: 2
Calcium Bath: 2.5
Opti-Dialyzer: 160
Ultrafiltration: Other (1kg)
Blood Flow: 300
Dialysate Flow: 600
Heparin: 500x2
EPO: 6000 units
[2024-05-21] MEDS: TYLENOL ORAL SOLUTION TUBE (16:49)
[2024-05-21] MEDS: MIRALAX TUBE (16:49)
[2024-05-21 17:43] LABS: Glucose - Point of Care 127 mg/dl (70-99)
[2024-05-21] MEDS: MAXIPIME 5.65 MG IV (17:55)
--- NOTE | 2024-05-21 20:15 | PTCARENOTE ---
Received patient at 1900. Pt. currently in bed. Drowsy but arousable. Answering questions appropriately. Follows simple commands. Denies pain/discomfort. Afebrile. Heart rhythm sinus. Hypertensive, PRN IV hydralazine given. Pt. currently on 3L nasal
cannula. Lungs sound coarse. NPO. Tube feeds running via dobhoff tube. Stevenson catheter in place per urology determination. Skin as documented. Discussed plan of care with patient. Vital signs stable at this time.
[2024-05-21] MEDS: XALATAN OPHTHALMIC SOLUTION 1 DROP BOTH EYES (22:42)
[2024-05-22] VITALS (32 sets, daily range): BP systolic 112–190; BP diastolic 58–92
--- NOTE | 2024-05-22 | PTCARENOTE ---
Pt. assessment unchanged. Appears to be resting comfortably. Vital signs stable at this time.
[2024-05-22] MEDS: APRESOLINE 10 MG IV (00:08)
[2024-05-22] MEDS: TYLENOL ORAL SOLUTION 650 MG TUBE ×4 (00:08→17:46)
[2024-05-22] MEDS: NOVOLOG FLEXPEN-LOW RESISTANCE SC ×4 (00:08→17:50)
[2024-05-22 00:18] LABS: Glucose - Point of Care 104 mg/dl (70-99)
[2024-05-22 04:30] LABS: % Basophils 0.3 % (0-2); % Eosinophils 1.7 % (0-6); % Immature Granulocytes 1.3 % (0-0.5); % Monocytes 6.2 % (1.7-9.3); % Neutrophils 87.5 % (42.2-75.2); Absolute Eosinophils 0.2 10^3/uL (0-0.7); Absolute Immature Granulocytes 0.1 10^3/uL (0-0.05); Absolute Lymphocytes 0.3 10^3/uL (1.2-3.4); Absolute Monocytes 0.7 10^3/uL (0.1-0.6); Absolute Neutrophils 9.8 10^3/uL (1.4-6.5); Mean Platelet Volume 11.7 fL (7.4-10.4); Nucleated Red Blood Cells % 0.2 % (-); Platelet Count 96 10^3/uL (130-400)
--- NOTE | 2024-05-22 04:30 | PTCARENOTE ---
Pt. assessment unchanged. AM labs drawn. Vital signs stable at this time.
[2024-05-22 04:46] LABS: Blood Urea Nitrogen 58 mg/dl (9-20); Calcium 8.1 mg/dl (8.4-10.2); Carbon Dioxide 22 mmol/L (22-30); Chloride 104 mmol/L (98-107); Estimated Creatinine Clearance 12 ml/min; Glucose 137 mg/dl (70-99); Potassium 3.3 mmol/L (3.5-5.1); Sodium 142 mmol/L (135-145); eGFR 16.36
[2024-05-22] MEDS: KCL ELIXIR 20 MEQ TUBE (05:48)
[2024-05-22 06:41] LABS: Hematocrit 24.8 % (39.0-52.0); Hemoglobin 8.2 g/dL (13.0-18.0); Mean Corp Hgb Conc. 33.1 g/dL (33.0-37.0); Mean Corpuscular Hgb 28.9 pg (27.0-31.0); Mean Corpuscular Volume 87.3 fL (80.0-94.0); Red Blood Cell Count 2.84 10^6/uL (4.70-6.10); White Blood Cell Count 10.8 10^3/uL (4.8-10.8)
[2024-05-22] MEDS: DUONEB 3 ML INH (07:55)
[2024-05-22] MEDS: KEPPRA 500 MG IV (08:17)
[2024-05-22] MEDS: COREG TUBE (08:17)
[2024-05-22] MEDS: SODIUM BICARBONATE 650 MG TUBE (08:17)
[2024-05-22] MEDS: LEVOTHROID 50 MCG IV (08:17)
[2024-05-22] MEDS: NSS (PRESERVATIVE FREE) 10 ML IV (08:19)
[2024-05-22] MEDS: PROTONIX IV 40 MG IV (08:19)
[2024-05-22] MEDS: MIRALAX TUBE (08:20)
[2024-05-22] MEDS: HEPARIN 5000 UNITS SC (08:20)
[2024-05-22] MEDS: DESENEX/MITRAZOL/ZEASORB 1 APPLIC TOPICAL ×2 (08:20→20:22)
[2024-05-22] MEDS: ALPHAGAN P 0.15% EYE DROPS 1 DROP BOTH EYES (08:23)
[2024-05-22] MEDS: TRUSOPT 2% OPHTHALMIC SOLUTION 1 DROP BOTH EYES ×2 (08:23→20:21)
--- NOTE | 2024-05-22 08:29 | W.PN.NEPH.PH ---
Today's Communication / Plan
-
HD today
Assessment/Plan
-
Impression:
HTN emergency
Suspected seizures with tongue bite
Acute respiratory failure -VDRF
Elevated troponin, most likely non-ischemic cardiac injury
Hx of pericardial effusion s/p pericardiocentesis
Recent abdominal discomfort
TORSTEN on CKD stage 5 -cr mid 4s in Mar
mixed acid base disorder-HAGMA and elevated lactate
Alkalemia with primary rep alkalosis
Macroglossia-severe hypothyroidism
Transaminitis
PAD s/p b/l AKA and femoral stents
Renal artery stenosis of solitary kidney-deemed not a candidate for renal artery revasc with poor vascular
Hx of prostate CA
HLD
Glaucoma
Hx of GIB
CHronic anemia
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
Stage 1 sacral wound
Diverticulosis
Coronary artery disease
Renal cancer with history of left nephrectomy
He also with MGUS supposed to see heme out pt but never happened for BM biopsy
Plan:
HD today 3rd treatment
prn meds for HTN, as BP drops on HD, hold coreg this am
follow hgb
continue TF until more awake for po
critical care time 31 minutes
-
-
Date of Service: May 22, 2024
CC / HPI / ROS
-
Chief Complaint:
TORSTEN with CKD4
History of Present Illness:
started HD , tolerated yesterday
oligoanuric with alicea
BP labile
extubated 05/21
hgb low stable
critically ill in ICU
Review of Systems:
no fever
follows simple commands
Labs
-
Labs:
WBC 10.8 10^3/uL (4.8-10.8) 05/22/24 04:09
RBC 2.84 10^6/uL (4.70-6.10) L 05/22/24 04:09
Hgb 8.2 g/dL (13.0-18.0) L 05/22/24 04:09
Hct 24.8 % (39.0-52.0) L 05/22/24 04:09
Plt Count 96 10^3/uL (130-400) L 05/22/24 04:09
Sodium 142 mmol/L (135-145) 05/22/24 04:08
Potassium 3.3 mmol/L (3.5-5.1) L 05/22/24 04:08
Chloride 104 mmol/L (98-107) 05/22/24 04:08
Carbon Dioxide 22 mmol/L (22-30) 05/22/24 04:08
BUN 58 mg/dl (9-20) H 05/22/24 04:08
Creatinine 3.6 mg/dL (0.7-1.3) H 05/22/24 04:08
eGFR 16.36 05/22/24 04:08
Glucose 137 mg/dl (70-99) H 05/22/24 04:08
Calcium 8.1 mg/dl (8.4-10.2) L 05/22/24 04:08
Yyt-L-Tlrxrlptmyo Pept 6600 pg/ml 05/16/24 03:30
Albumin 3.0 g/dl (3.5-5.0) L 05/18/24 03:18
Physical Exam
-
Vital Signs:
Vital Signs
Temp Pulse Resp BP Pulse Ox
98 F 80 19 148/92 97
05/22/24 08:26 05/22/24 07:56 05/22/24 07:56 05/22/24 07:01 05/22/24 07:56
Cardiovascular:: Regular rate and rhythm
Respiratory:: Bilateral: CTA
Lung Excursion:: Normal
Abdomen:: Nontender and Soft
Bowel Sounds:: Normal
Extremity Edema:: +3: Bilateral:
--- NOTE | 2024-05-22 09:33 | W.PN.HOSP.TC ---
Today's Communication/Plan
-
Stable for IMU
Started on Eliquis for bilateral upper extremity DVT
Continue dialysis as per nephrology
Continue IV antibiotics
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
Subcu heparin discontinued
Follow-up HIT panel
Consult SPL
Assessment / Plan
Assessment / Plan
78yo M with PMHx of severe PAD s/p b/l AKA s/p fem-fem bypass, Hx of prostate CA, CAD s/p PCI, stage 1 sacral pressure wound, glaucoma, labile HTN, Hx of pericardial effusion, R solitary kidney, Hx of retroperitoneal fibrosis, renal artery stenosis,
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
CKD, also developed UGIB
Impression:
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
Ventilatory dependent respiratory failure secondary to above
-Intubated for airway protection and secondary to macroglossia
Nosocomial/aspiration pneumonia with Serratia in sputum
Hypertensive emergency.
Tongue laceration and bleeding.
Acute kidney injury on CKD.
Persistent metabolic acidosis/lactic acidosis.
Provoked generalized seizure.
Acute bilateral upper extremity DVT
Abnormal LFT.
Conditions prior to admission:
Chronic kidney disease
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
Solitary kidney.
Chronic hydronephrosis.
CAD.
Essential hypertension
PAD.
Renal CA with history of left nephrectomy.
Plan:
VDRF.
Extubated on 05/21. Speech and swallow evaluation
Nosocomial/aspiration pneumonia
Sputum culture with Serratia.
Continue aspiration precautions.
Antibiotics transition from ceftriaxone to cefepime on 05/18.
Myxedema coma.
TSH over 200
Continue IV levothyroxine.
Corticosteroids tapered off
Hypertensive emergency.
Off Cardene drip
IV hydralazine/labetalol
Monitor BP with HD volume management
CAD by history. Echocardiogram 05/14 LVEF greater than 70%. Mild to moderate MR, mild to moderate AR, mild TR.
TORSTEN on CKD baseline persistent metabolic acidosis.
Azotemia.
Initiated on hemodialysis on 05/20
Continue dialysis as per nephrology
New onset/provoked generalized seizure.
Neurology consultation.
MRI of the brain pending.
Initiated on Keppra 500 mg twice daily
Laceration tonic with hemorrhage
Acute on chronic anemia secondary to blood loss with low with hemoglobin 6.7.
Monitor closely
Transfuse to keep hemoglobin above 8
Continue IV PPI
Nutrition
NG tube in place.
Speech and swallow evaluation postextubation
Bilateral upper extremity DVT
Started on Eliquis
Thrombocytopenia
Follow-up HIT panel
Discontinue heparin
DVT prophylaxis�Eliquis
Full code
Total time spent to see the patient on the floor, examine the patient, review data and lab results, discuss treatment plan with patient, nursing staff around 55 minutes.
Physical Exam
General: Appears acutely ill, no acute distress
HEENT: Normocephalic, Atraumatic, EOMI, MMM
Respiratory: Coarse breath sounds diffusely
Cardiac: Normal S1/S2, Regular Rate and Rhythm
GI: Soft, Nontender, Nondistended, Normal Bowel Sounds
Extremities: Bilateral AKA
Anticipated Discharge: > 48 hours
Subjective/Interval History
-
Date of Service: May 22, 2024
Patient lethargic. He denies pain. No fever, no vomiting.
Objective Data
-
Labs:
Laboratory Results
05/22/24 05/22/24
04:08 04:09
WBC 10.8
Hgb 8.2 L
Hct 24.8 L
Plt Count 96 L
Sodium 142
Potassium 3.3 L
Chloride 104
Carbon Dioxide 22
BUN 58 H
Creatinine 3.6 H
Glucose 137 H
Calcium 8.1 L
Vital Signs:
Vital Signs
Temp Pulse Resp BP Pulse Ox
98 F 80 19 148/92 97
05/22/24 08:26 05/22/24 07:56 05/22/24 07:56 05/22/24 07:01 05/22/24 07:56
I&O
05/21/24 05/22/24 05/23/24
06:59 06:59 06:59
Intake Total 415 / 450 1005 / 1005
Output Total 332 / 342 207 / 207
Balance 83 / 108 798 / 798
--- NOTE | 2024-05-22 09:43 | W.PN.INTV ---
Today's Communication / Plan
Recommendations
Start Eliquis
Discontinue heparin subcu and on HD.
Repeat CBC later today 1pm
Will check HIT ab
Complete antibiotic therapy today
Incentive spirometer
Continue dialysis
Tranfer to IMU
Assessment
-
Patient is an 78-year-old male with previous history of severe PAD status post bilateral AKA, bilateral femorofemoral bypass, history of prostate cancer, CAD status post PCI, sacral pressure wound, labile hypertension, history of right solitary
kidney, renal artery stenosis presenting after being found by family unresponsive, 'covered in blood.' Niece states that he went to bed the night before without any issue except he noted abdominal pain. She did not recall his mouth being swollen.
She found him unresponsive this a.m. blood on chest and across the room, stemming from his mouth. EMS called, on arrival he had witnessed seizure. In the ER, blood pressure greater than 220 he was intubated for airway protection, he had notable
tongue lacerations. TSH is 204. He has no prior history of thyroid disease. Admitted to ICU.
Acute myxedema coma
Unresponsiveness-resolved
Witnessed tonic clonic seizure en route-resolved
Severe macroglossia s/p intubation (originally with at least 1.5-2' protrusion from lips)
Required intubation and mechanical ventilation for airway protection.
Hypertensive emergency >220 on arrival-resolved
Tongue laceration with oral bleeding
Bilateral upper extremity DVT 05/21/2024.
Metabolic acidosis
Lactic acidosis
Elevated LFTs
Serratia PNA
Continuous dark emesis from NG likely Ileus, CT AP neg
TORSTEN on CKD, likely to need HD
Conditions present [employer]SE[employer]OR
[place] lambda light chains
CKI 2/2 multiple etiologies including renal artery stenosis 60% on solitary kidney
Penis and right upper extremity edema/volume overload
Chronic hydronephrosis
History of Cystitis
Pericardial and pleural effusion
Coronary artery disease
Hypertension
Peripheral vascular disease
Renal cancer with history of left nephrectomy
Plan
Extubated 05/21/2024.
Off oxygen therapy
Lung exam mostly clear
Macroglossia mostly resolved-tongue is bruised.
Minimize sedation
Encourage incentive spirometry
Aspiration precautions.
-
No further seizures.
Patient follows commands.
Neurology following: Continue Keppra
MRI 05/20/2024:There is a small focus of moderate increased diffusion-weighted signal and decreased ADC signal in the medial left temporal lobe as described.
This could represent a small focus of acute to subacute infarction, although slightly less intense on diffusion-weighted images than generally expected.
No evidence of intracranial mass lesion or mass effect with no midline shift. No evidence for acute intracranial hemorrhage.
Paranasal sinus disease as described, raising concern for acute sinusitis with meniscal air-fluid levels in both maxillary sinuses. Please correlate clinically.
-
Fluid throughout the mastoid air cells bilaterally-NG tube has been discontinued. Replaced by a Dobbhoff tube
-
Hemodynamically stable, not requiring pressors.
Cardiac history reviewed--HTN, CAD/PAD,
Continue oral antihypertensive.
Echocardiogram 05/14/2024: Moderate size pericardial effusion without evidence of hemodynamic compromise. Pleural effusion present. Moderate asymmetric left ventricular hypertrophy with underfilled left ventricular cavity. No regional wall motion
abnormalities. Mild to moderate MR. Mild to moderate AR. Mild TR.
Monitor on telemetry
Fluid balance negative via dialysis
-
TSH 204, myxedema coma
Continue IV Synthroid 50 mcg . Endocrinology saw the patient once. Recommended outpatient follow-up. Eventually transition to enteral route.
Hydrocortisone discontinued 05/19/2024
No prior known h/o diabetes or was thyroid disease
TSH 72 on 05/22/2024
-
Bilateral upper extremity DVT 05/21/2024.
Thrombocytopenia-4 T-score intermediate. Platelet drop started 72 hours after starting subcu heparin for DVT prophylaxis.
Today platelet count is slightly higher, will repeat CBC later if platelet count is trending higher less likely HIT. If platelet count continues to decline then we will avoid heparinoids until ruled out. For now will avoid - discussed with
nephrology.
Will send HIT antibody regardless.
Patient to complete cefepime today.
will start Eliquis through the tube-should continue for at least 3 months.10mg bid for 7d and then 5mg PO BID.
May need hematology consultation if thrombocytopenia worsens.
-
Coffee-ground emesis: Likely bleeding from his tongue bite. Resolved.
Stable hemoglobin.
No further oral bleeding
Continue PPI for now
-
Anemia: Status post 2 units of packed red blood cells With good response
GI has evaluated the patient: No indication for upper endoscopy at this point.
TORSTEN on CKD--Creat at baseline, nephrology following the patient.
Dialysis since 05/20/2024.
Follow daily electrolytes
-
Leukocytosis resolved likely stress from seizures.
Afebrile
Sputum+ serratia, antibiotics will be transitioned to cefepime complete antibiotics today 05/22/2024-okay to discontinue after last dose.
History of PCN allergy
Continues to have secretions but does not appear toxic
-
NPO.
Tolerating tube feeding
Advance to oral diet once cleared by speech.
Aspiration precautions, HOB > 30 degrees.
-
DVT prophylaxis -heparin subcu
Prognosis guarded
Extubated, no airway compromise. On room air. Critical care team will sign off.
Please call pulmonary if any respiratory issues arise.

Diagnostic Data
Chest X-Ray: 05/14/24- Endotracheal tube with tip at the zeenat. Consider retracting 2 cm. Nonspecific small left basilar opacity which partially obscures the hemidiaphragm. This could represent a small effusion and/or airspace consolidation.
CT Scan: AP 05/14/24- IMPRESSION:
1. Significantly limited study secondary to diffuse volume overload with infiltration of the intra-abdominal fat and absence of oral and intravenous contrast. No gross acute abnormalities appreciated.
2. Small bilateral pleural effusions and likely small pericardial effusion.
3. Small volume of ascites with diffuse infiltration of the mesenteric fat.
4. Probable cholelithiasis.
5. Extensive aortoiliac atherosclerotic disease with femoral-femoral bypass graft.
Echo: 03/26/24- Normal left ventricular size, wall thickness and systolic function. Left ventricular ejection fraction is 55-60% by visual assessment. Normal right ventricular size and function. Limited valvular interrogation. Small to moderate
pericardial effusion located near right ventricle without evidence of hemodynamic compromise. Compared to prior from March 19, 2024, on indirect [id number] comparison findings appear similar.
PFT's:
Reports and relevant images were personally reviewed.
-----
Subjective Dataa
Subjective Data
Date of Service:
Date of Service: May 22, 2024
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
Subjective:
Extubated and tolerating well
No airway compromise
Review of Systems
Cardiopulmonary: Dyspnea (none at rest)
GI: Abdominal Pain (n) and Nausea (n)
Neuro: Headache (n)
Objective Data
Data Reviewed
Vital Signs / I&O / Oxygen:
Vital Signs
Temp Pulse Resp BP Pulse Ox
98 F 80 19 148/92 97
05/22/24 08:26 05/22/24 07:56 05/22/24 07:56 05/22/24 07:01 05/22/24 07:56
Intake and Output
05/21/24 05/22/24 05/23/24
06:59 06:59 06:59
Intake Total 415 / 450 1005 / 1005
Output Total 332 / 342 207 / 207
Balance 83 / 108 798 / 798
SaO2 [CPAP/PSV] 99
SaO2 [A/C] 100
SaO2 97
Nasal Cannula flow liters per 2
minute
Physical Exam
General: Comfortable and Other (NAD)
HEENT: Normocephalic, Anicteric, Moist Mucous Membranes and Other (malodorous oral care/bruised tongue-macroglossia mostly resolved)
Cardiovascular: S1-S2, Regular Rhythm and Other (BL AKA)
Respiratory: Clear and Non-Labored Respirations
GI: Soft, Non Distended and Non Tender
Neurology: Awake, Alert, Lethargic, Non Verbal (sedated/intubated) and Other (Follows commands)
Skin: Warm, Dry and Other (Bilateral amputee)
Labs/Micro/Reports
Lab Data
05/22/24 04:09
05/22/24 04:08
Laboratory Results
05/21/24
09:35
pH 7.44
pCO2 31 L
pO2 135 H
HCO3 21.1
O2 Delivery Level
Microbiology
05/14/24 11:12 Blood/Venous Blood Culture - Final
Bacteroides intermedius
05/14/24 11:12 Blood/Venous Gram Stain - Final
05/14/24 09:21 Blood/Venous Blood Culture - Final
No Growth - Final Report
[2024-05-22 11:45] LABS: Glucose - Point of Care 128 mg/dl (70-99)
--- NOTE | 2024-05-22 12:09 | PTCARENOTE ---
No changes in pt assessment. Pt resting comfortably in bed at this time.
[2024-05-22 12:51] LABS: Hematocrit 23.9 % (39.0-52.0); Hemoglobin 7.9 g/dL (13.0-18.0); Mean Corp Hgb Conc. 33.1 g/dL (33.0-37.0); Mean Corpuscular Volume 90.9 fL (80.0-94.0); Mean Platelet Volume 12.4 fL (7.4-10.4); Platelet Count 100 10^3/uL (130-400); Red Blood Cell Count 2.63 10^6/uL (4.70-6.10); Red Cell Dist. Width 14.7 % (11.5-14.5); White Blood Cell Count 10.5 10^3/uL (4.8-10.8)
[2024-05-22] MEDS: MANNITOL 25% 12.5 GRAMS IV ×2 (14:00→15:01)
--- NOTE | 2024-05-22 14:01 | W.PN.NEPH.HD ---
Assessment
-
Seen on HD. no new issues. VSS, access ok
no heparin on HD with low plt and UE DVTs
Progress Note - Hemodialysis
-
Date of Service: May 22, 2024
Duration: 15 minutes and 3 hours
Potassium Bath: 2
Calcium Bath: 2.5
Opti-Dialyzer: 160
Ultrafiltration: Other (1.5kg)
Blood Flow: 400
Dialysate Flow: 600
Heparin: 0
EPO: no
--- NOTE | 2024-05-22 15:31 | PTCARENOTE ---
Pt receiving HD at this time. Family at bedside, updated. No changes in assessment. IMU status.
[2024-05-22] MEDS: MAXIPIME 5.65 MG IV (17:46)
[2024-05-22 17:54] LABS: Glucose - Point of Care 137 mg/dl (70-99)
--- NOTE | 2024-05-22 19:31 | PTCARENOTE ---
Received patient at 1900. Pt. drowsy but arousable. Answering questions appropriately. Following commands. Denies pain/discomfort. Afebrile. Heart rhythm sinus. Currently on room air. Lungs sound coarse. Tube feeds running via dobhoff. Rectal
trumpet in place. Stevenson catheter in place, draining without issue. Skin as documented. Discussed plan of care with patient. Vital signs stable at this time.
[2024-05-22] MEDS: COREG 6.25 MG TUBE (20:21)
[2024-05-22] MEDS: ELIQUIS 10 MG PO (20:21)
[2024-05-22] MEDS: XALATAN OPHTHALMIC SOLUTION 1 DROP BOTH EYES (23:06)
[2024-05-23] VITALS (23 sets, daily range): BP systolic 128–200; BP diastolic 65–93
[2024-05-23 00:03] LABS: Glucose - Point of Care 141 mg/dl (70-99)
[2024-05-23] MEDS: NOVOLOG FLEXPEN-LOW RESISTANCE SC ×4 (00:46→23:45)
[2024-05-23] MEDS: TYLENOL ORAL SOLUTION 650 MG TUBE ×5 (01:10→23:46)
[2024-05-23] MEDS: APRESOLINE 10 MG IV ×2 (02:04→18:15)
[2024-05-23 03:59] LABS: Hemoglobin 7.7 g/dL (13.0-18.0); Mean Corp Hgb Conc. 33.5 g/dL (33.0-37.0); Mean Corpuscular Hgb 29.4 pg (27.0-31.0); Mean Corpuscular Volume 87.8 fL (80.0-94.0); Mean Platelet Volume 12.4 fL (7.4-10.4); Platelet Count 102 10^3/uL (130-400); Red Blood Cell Count 2.62 10^6/uL (4.70-6.10); Red Cell Dist. Width 14.8 % (11.5-14.5); White Blood Cell Count 11.4 10^3/uL (4.8-10.8)
[2024-05-23 04:10] LABS: ALT (SGPT) 32 U/L (0-50); AST (SGOT) 29 U/L (17-59); Alkaline Phosphatase 88 U/L (38-126); Blood Urea Nitrogen 43 mg/dl (9-20); Carbon Dioxide 23 mmol/L (22-30); Chloride 104 mmol/L (98-107); Estimated Creatinine Clearance 15 ml/min; Glucose 143 mg/dl (70-99); Potassium 3.3 mmol/L (3.5-5.1); Sodium 142 mmol/L (135-145); Total Bilirubin 0.3 mg/dl (0.2-1.3); Total Protein 5.5 g/dl (6.3-8.2); Triglycerides 114 mg/dl (10-149); eGFR 22.12
[2024-05-23] MEDS: MIRALAX TUBE (07:26)
[2024-05-23] MEDS: COREG 6.25 MG TUBE ×2 (08:12→19:35)
[2024-05-23] MEDS: ELIQUIS 10 MG PO ×2 (08:12→19:34)
[2024-05-23] MEDS: ALPHAGAN P 0.15% EYE DROPS 1 DROP BOTH EYES (08:14)
[2024-05-23] MEDS: KEPPRA 500 MG IV (08:14)
[2024-05-23] MEDS: TRUSOPT 2% OPHTHALMIC SOLUTION 1 DROP BOTH EYES ×2 (08:14→19:34)
[2024-05-23] MEDS: DESENEX/MITRAZOL/ZEASORB 1 APPLIC TOPICAL ×2 (08:14→19:35)
[2024-05-23] MEDS: LEVOTHROID 50 MCG IV (08:14)
--- NOTE | 2024-05-23 08:20 | PTCARENOTE ---
Rec'd pt at 0700. Pt IMU status, drowsy but awakens to verbal stimuli. Oriented to person and place, forgetful of time and some events. Falls back to sleep when undisturbed. Monitor SR PAC/PVC. Gurgly voice quality, moist nonproductive cough. DHT
with Nepro at goal. Rectal trumpet in place, draining liquid curry stool. Stevenson draining yin urine. Sutures intact to penis. Pt repositioned, denies pain and resting comfortably.
--- NOTE | 2024-05-23 08:45 | W.PN.HOSP.TC ---
Today's Communication/Plan
-
see bold
Assessment / Plan
Assessment / Plan
78yo M with PMHx of severe PAD s/p b/l AKA s/p fem-fem bypass, Hx of prostate CA, CAD s/p PCI, stage 1 sacral pressure wound, glaucoma, labile HTN, Hx of pericardial effusion, R solitary kidney, Hx of retroperitoneal fibrosis, renal artery stenosis,
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
CKD, also developed UGIB
Impression:
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
Ventilatory dependent respiratory failure secondary to above
-Intubated for airway protection and secondary to macroglossia
Nosocomial/aspiration pneumonia with Serratia in sputum
Hypertensive emergency.
Tongue laceration and bleeding.
Acute kidney injury on CKD.
Persistent metabolic acidosis/lactic acidosis.
Provoked generalized seizure.
Acute bilateral upper extremity DVT
Abnormal LFT.
Conditions prior to admission:
Chronic kidney disease
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
Solitary kidney.
Chronic hydronephrosis.
CAD.
Essential hypertension
PAD.
Renal CA with history of left nephrectomy.
Plan:
VDRF.
Extubated on 05/21. Speech and swallow evaluation
Nosocomial/aspiration pneumonia
Sputum culture with Serratia.
Continue aspiration precautions.
Antibiotics transition from ceftriaxone to cefepime on 05/18.
Myxedema coma.
TSH over 200
Continue IV levothyroxine.
Corticosteroids tapered off
Hypertensive emergency.
Off Cardene drip
IV hydralazine/labetalol
Monitor BP with HD volume management
CAD by history. Echocardiogram 05/14 LVEF greater than 70%. Mild to moderate MR, mild to moderate AR, mild TR.
TORSTEN on CKD baseline persistent metabolic acidosis.
Azotemia.
Initiated on hemodialysis on 05/20
Continue dialysis as per nephrology
New onset/provoked generalized seizure.
Neurology consultation.
MRI of the brain shows possible acute to subacute infarction
Initiated on Keppra 500 mg daily
Laceration tonic with hemorrhage
Acute on chronic anemia secondary to blood loss with low with hemoglobin 6.7
Status post 2 units packed red blood cells
Hemoglobin 7.7 today, will transfuse to keep hemoglobin above 8
Continue IV PPI
Nutrition
NG tube in place.
Speech and swallow evaluation ordered but patient too lethargic
Bilateral upper extremity DVT
Started on Eliquis 05/22
Thrombocytopenia
Follow-up HIT panel
Discontinued heparin
DVT prophylaxis�Eliquis
Full code
Total time spent to see the patient on the floor, examine the patient, review data and lab results, discuss treatment plan with patient, nursing staff around 51 minutes.
Physical Exam
General: Appears acutely ill, no acute distress
HEENT: Normocephalic, Atraumatic, EOMI, MMM
Respiratory: Coarse breath sounds diffusely
Cardiac: Normal S1/S2, Regular Rate and Rhythm
GI: Soft, Nontender, Nondistended, Normal Bowel Sounds
Extremities: Bilateral AKA
Anticipated Discharge: > 48 hours
Subjective/Interval History
-
Date of Service: May 23, 2024
Patient is lethargic. He does wake up, and answers questions. He does not feel well. No fever.
Objective Data
-
Labs:
Laboratory Results
05/23/24
03:25
WBC 11.4 H
Hgb 7.7 L
Hct 23.0 L
Plt Count 102 L
Sodium 142
Potassium 3.3 L
Chloride 104
Carbon Dioxide 23
BUN 43 H
Creatinine 2.8 H
Glucose 143 H
Calcium 8.0 L
Total Bilirubin 0.3
AST 29
ALT 32
Alkaline Phosphatase 88
Vital Signs:
Vital Signs
Temp Pulse Resp BP Pulse Ox
98.9 F 87 16 171/79 95
05/23/24 08:25 05/23/24 08:00 05/23/24 08:00 05/23/24 08:00 05/23/24 08:00
I&O
05/22/24 05/23/24 05/24/24
06:59 06:59 06:59
Intake Total 1005 / 1040 895 / 895
Output Total 207 / 207 120 / 120
Balance 798 / 833 775 / 775
--- NOTE | 2024-05-23 08:59 | W.PN.NEPH.PH ---
Today's Communication / Plan
-
HD tomorrow
Assessment/Plan
-
Impression:
HTN emergency
Suspected seizures with tongue bite
Acute respiratory failure -VDRF
Elevated troponin, most likely non-ischemic cardiac injury
Hx of pericardial effusion s/p pericardiocentesis
Recent abdominal discomfort
TORSTEN on CKD stage 5 -cr mid 4s in Mar
mixed acid base disorder-HAGMA and elevated lactate
Alkalemia with primary rep alkalosis
Macroglossia-severe hypothyroidism
Transaminitis
PAD s/p b/l AKA and femoral stents
Renal artery stenosis of solitary kidney-deemed not a candidate for renal artery revasc with poor vascular
Hx of prostate CA
HLD
Glaucoma
Hx of GIB
CHronic anemia
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
Stage 1 sacral wound
Diverticulosis
Coronary artery disease
Renal cancer with history of left nephrectomy
He also with MGUS supposed to see heme out pt but never happened for BM biopsy
Plan:
HD tomorrow
likely cannot use UE edema as gauge of volume given DVT
await HIT Ab
follow hgb
continue TF until more awake for po
-
-
Date of Service: May 23, 2024
CC / HPI / ROS
-
Chief Complaint:
TORSTEN with CKD4
History of Present Illness:
tolerated HD yesterday
oligoanuric with alicea
BP labile
extubated 05/21
hgb low drifting down 7.7
on eliquis for UE DVT
Review of Systems:
no fever
opens eye to voice
Labs
-
Labs:
WBC 11.4 10^3/uL (4.8-10.8) H 05/23/24 03:25
RBC 2.62 10^6/uL (4.70-6.10) L 05/23/24 03:25
Hgb 7.7 g/dL (13.0-18.0) L 05/23/24 03:25
Hct 23.0 % (39.0-52.0) L 05/23/24 03:25
Plt Count 102 10^3/uL (130-400) L 05/23/24 03:25
Sodium 142 mmol/L (135-145) 05/23/24 03:25
Potassium 3.3 mmol/L (3.5-5.1) L 05/23/24 03:25
Chloride 104 mmol/L (98-107) 05/23/24 03:25
Carbon Dioxide 23 mmol/L (22-30) 05/23/24 03:25
BUN 43 mg/dl (9-20) H 05/23/24 03:25
Creatinine 2.8 mg/dL (0.7-1.3) H 05/23/24 03:25
eGFR 22.12 05/23/24 03:25
Glucose 143 mg/dl (70-99) H 05/23/24 03:25
Calcium 8.0 mg/dl (8.4-10.2) L 05/23/24 03:25
Cfq-W-Hdhvkokwkcv Pept 6600 pg/ml 05/16/24 03:30
Albumin 3.0 g/dl (3.5-5.0) L 05/23/24 03:25
Physical Exam
-
Vital Signs:
Vital Signs
Temp Pulse Resp BP Pulse Ox
98.9 F 87 16 171/79 95
05/23/24 08:25 05/23/24 08:00 05/23/24 08:00 05/23/24 08:00 05/23/24 08:00
Cardiovascular:: Regular rate and rhythm
Respiratory:: Bilateral: Coarse
Lung Excursion:: Normal
Abdomen:: Nontender and Soft
Bowel Sounds:: Normal
Extremity Edema:: +3: Bilateral:
[2024-05-23] MEDS: APRESOLINE 50 MG TUBE ×2 (09:03→15:30)
--- NOTE | 2024-05-23 10:34 | W.PN.URO.CBU ---
Today's Communication / Plan
-
WILL SIGN OFF RECONSULT PRN
Assessment / Plan
-
DORASL SLIT HEALING WILL SIGN OFF
Diagnosis
-
Date of Service: May 23, 2024
-
Patient Diagnosis:
PHIMOSIS REQUIRED DORSAL SLIT TO PLACE MONTERO
Post Op Day:
Subjective
-
URINE F=DRAING WELL
Objective
-
Vital Signs
Temp Pulse Resp BP Pulse Ox
98.9 F 87 16 171/79 95
05/23/24 08:25 05/23/24 08:00 05/23/24 08:00 05/23/24 08:00 05/23/24 08:00
Intake and Output
05/22/24 05/23/24 05/24/24
06:59 06:59 06:59
Intake Total 1005 / 1040 895 / 930 130 / 130
Output Total 207 / 207 120 / 120
Balance 798 / 833 775 / 810 130 / 130
Intake:
Tube feeding 840 / 875 805 / 840 70 / 70
Feeding tube flush amount 165 / 165 90 / 90 60 / 60
Output:
Urine, Montero 207 / 207 120 / 120
Laboratory Results
05/23/24 03:25
05/23/24 03:25
Review of Systems
-
: Difficulty Voiding
Physical Exam
-
General - well developed, well nourished, no acute distress
Chest - clear bilaterally
Abdomen - soft, non-tender, positive bowel sounds, no CVAT, no incisional pain or distention
Genitalia - normal
Rectal - normal
Skin - warm & dry with no rash
Neuro - AOx3, no motor deficits
Extremities - no clubbing, no cyanosis, no edema
Incision - clean, dry
Dressing - clean, dry, intact
Care Review
Data Reviewed
Discussed with: Hospitalist and Nursing
[2024-05-23] MEDS: NOVOLOG FLEXPEN-LOW RESISTANCE 1 UNITS SC (11:32)
[2024-05-23 11:42] LABS: Glucose - Point of Care 172 mg/dl (70-99)
--- NOTE | 2024-05-23 13:20 | PTCARENOTE ---
Pt more alert and interactive this afternoon. Family at bedside. No changes in assessment.
[2024-05-23 17:42] LABS: Glucose - Point of Care 97 mg/dl (70-99)
--- NOTE | 2024-05-23 18:43 | PTCARENOTE ---
1 unit PRBCs transfused, no signs of rxn. Pt repositioned.
--- NOTE | 2024-05-23 21:30 | PTCARENOTE ---
Report received from previous shift RN [id number]. Pt in bed, sleeping when undisturbed, wakens to verbal/tactile stimuli. Pt is AAO2, forgetful to time, drowsy w flat affect. Pt nods head 'no' to pain. Pt has wet voice quality, needs encouragement to
cough/deep breath and requires intermittent oral suctioning. Weak cough effort, lung sounds are decreased/coarse throughout, pox 96-97% on room air. Telemetry rhythm reveals SR w oc PACs/PVCs, HR 90's, generalized anasarca noted, palpable peripheral
pulses. HyperBS, rectal trumpet remains in place draining liquid brown stool. R nare DHT with TF as ordered. Stevenson catheter in place draining small amounts yellow/yin urine. B/L AKA noted. Skin as documented. R IJ HD cath in place; R DL PICC in
place, capped. Safe environment maintained, call skinner within reach. Will monitor.
[2024-05-23] MEDS: APRESOLINE TUBE (22:39)
[2024-05-23] MEDS: XALATAN OPHTHALMIC SOLUTION 1 DROP BOTH EYES (22:46)
[2024-05-23 23:57] LABS: Glucose - Point of Care 131 mg/dl (70-99)
[2024-05-24] VITALS (39 sets, daily range): BP systolic 107–172; BP diastolic 61–86; BMI 19.8
--- NOTE | 2024-05-24 00:12 | PTCARENOTE ---
Pt sleeping when undisturbed. Repositioning pt Q2H for skin integrity. No change in assessment. Will continue to monitor.
--- NOTE | 2024-05-24 02:59 | PTCARENOTE ---
Complete CHG bath, Stevenson and oral care provided. Pt encouraged to cough to assist in clearing secretions. Suctioned orally for small amt thick curry sputum. No change in assessment. Will monitor.
[2024-05-24 04:33] LABS: Hematocrit 28.5 % (39.0-52.0); Hemoglobin 9.4 g/dL (13.0-18.0); Mean Corpuscular Volume 84.8 fL (80.0-94.0); Mean Platelet Volume 12.3 fL (7.4-10.4); Platelet Count 105 10^3/uL (130-400); Red Blood Cell Count 3.36 10^6/uL (4.70-6.10); Red Cell Dist. Width 17.2 % (11.5-14.5); White Blood Cell Count 12.2 10^3/uL (4.8-10.8)
[2024-05-24 04:42] LABS: Blood Urea Nitrogen 59 mg/dl (9-20); Calcium 7.7 mg/dl (8.4-10.2); Carbon Dioxide 23 mmol/L (22-30); Chloride 104 mmol/L (98-107); Estimated Creatinine Clearance 12 ml/min; Glucose 150 mg/dl (70-99); Potassium 3.4 mmol/L (3.5-5.1); Sodium 140 mmol/L (135-145); eGFR 16.92
[2024-05-24] MEDS: NOVOLOG FLEXPEN-LOW RESISTANCE SC ×3 (05:33→17:22)
[2024-05-24] MEDS: TYLENOL ORAL SOLUTION 650 MG TUBE ×3 (05:33→17:34)
[2024-05-24 05:44] LABS: Glucose - Point of Care 147 mg/dl (70-99)
[2024-05-24] MEDS: APRESOLINE TUBE (07:44)
[2024-05-24] MEDS: ALPHAGAN P 0.15% EYE DROPS 1 DROP BOTH EYES (07:44)
[2024-05-24] MEDS: COREG TUBE (07:45)
[2024-05-24] MEDS: DESENEX/MITRAZOL/ZEASORB 1 APPLIC TOPICAL ×2 (07:45→19:26)
[2024-05-24] MEDS: ELIQUIS 10 MG PO ×2 (07:45→19:26)
[2024-05-24] MEDS: LEVOTHROID 50 MCG IV (07:46)
[2024-05-24] MEDS: MIRALAX 17 GRAMS TUBE (07:46)
[2024-05-24] MEDS: KEPPRA 500 MG IV (07:46)
[2024-05-24] MEDS: TRUSOPT 2% OPHTHALMIC SOLUTION 1 DROP BOTH EYES ×2 (07:47→19:26)
--- NOTE | 2024-05-24 08:47 | W.PN.NEPH.HD ---
Assessment
-
Patient seen on HD
sbp 117 at current reduced u/f
heparin held for PLT ~100
Progress Note - Hemodialysis
-
Date of Service: May 24, 2024
Duration: 30 minutes and 3 hours
Potassium Bath: 4
Calcium Bath: 2.5
Opti-Dialyzer: 160
Ultrafiltration: Other (1kg (decreased from 1.5kg due to sudden drop in bp))
Blood Flow: 400
Dialysate Flow: 600
Heparin: none
EPO: 10,000
--- NOTE | 2024-05-24 09:47 | PTCARENOTE ---
deb called for update, all questions answered
[2024-05-24] MEDS: RETACRIT 10000 UNITS IV (10:28)
--- NOTE | 2024-05-24 11:55 | CM ---
CM following re: discharge planning.
Reviewed pt's chart, met with pt and spoke to pt's niece Yumiko over the phone to update on discharge plan progress.
CM spoke to [facility] corporate coordinator and she confirmed that pt is accepted for outpatient HD treatment at [facility] on [facility].
Pt's niece Yumiko stated that pt will need a short term rehab prior to returning back home. per Yumiko, she is not sure to whether or not pt will be able to return back home and pt might need a computer terminal operator care or personal care level of care at [facility].
A list of SNFs with HD onsite provided to p[t's deb [place] and she preferred following SNFs: [facility], [facility], [facility] and [facility]. Pt's niece stated that in meantime she will tour all preferred SNFs, will
discuss it with the pt and will make a decision.
D/C paln; preferred [facility] with HD onsite when medically stable.
CM will follow to assist pt with discharge to a preferred SNF with HD onsite.
[2024-05-24] MEDS: COREG 6.25 MG TUBE ×2 (12:18→19:26)
[2024-05-24] MEDS: FLUSH (NSS) 2 FLUSH INTRACATH (12:23)
[2024-05-24 12:32] LABS: Glucose - Point of Care 131 mg/dl (70-99)
--- NOTE | 2024-05-24 12:37 | PTCARENOTE ---
pt still with difficulties managing secretions. frequent mouth care. rectal trumpet removed as no output thus far. pt c/o being tired. otherwise no changes.
[2024-05-24] MEDS: APRESOLINE 50 MG TUBE ×2 (16:06→22:13)
[2024-05-24 17:20] LABS: Glucose - Point of Care 100 mg/dl (70-99)
--- NOTE | 2024-05-24 17:32 | W.PN.HOSP.TC ---
Today's Communication/Plan
-
Completed antibiotics per
Continue aspiration precautions
Continue NG tube feeding
On Eliquis for upper extremity DVT
Follow platelet count
Follow HIT panel
Assessment / Plan
Assessment / Plan
78yo M with PMHx of severe PAD s/p b/l AKA s/p fem-fem bypass, Hx of prostate CA, CAD s/p PCI, stage 1 sacral pressure wound, glaucoma, labile HTN, Hx of pericardial effusion, R solitary kidney, Hx of retroperitoneal fibrosis, renal artery stenosis,
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
CKD, also developed UGIB
Impression:
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
Ventilatory dependent respiratory failure secondary to above
-Intubated for airway protection and secondary to macroglossia
Nosocomial/aspiration pneumonia with Serratia in sputum
Hypertensive emergency.
Tongue laceration and bleeding.
Acute kidney injury on CKD.
Persistent metabolic acidosis/lactic acidosis.
Provoked generalized seizure.
Acute bilateral upper extremity DVT
Abnormal LFT.
Thrombocytopenia
Conditions prior to admission:
Chronic kidney disease
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
Solitary kidney.
Chronic hydronephrosis.
CAD.
Essential hypertension
PAD.
Renal CA with history of left nephrectomy.
Plan:
VDRF.
Extubated on 05/21. Speech and swallow evaluation
Nosocomial/aspiration pneumonia
Sputum culture with Serratia.
Continue aspiration precautions.
Antibiotics transition from ceftriaxone to cefepime on 05/18.
Myxedema coma.
TSH over 200
Continue IV levothyroxine.
Corticosteroids tapered off
Hypertensive emergency.
Off Cardene drip
IV hydralazine/labetalol
Monitor BP with HD volume management
CAD by history. Echocardiogram 05/14 LVEF greater than 70%. Mild to moderate MR, mild to moderate AR, mild TR.
TORSTEN on CKD baseline persistent metabolic acidosis.
Azotemia.
Initiated on hemodialysis on 05/20
Continue dialysis as per nephrology
New onset/provoked generalized seizure.
Neurology consultation.
MRI of the brain shows possible acute to subacute infarction
Initiated on Keppra 500 mg daily
Laceration tonic with hemorrhage
Acute on chronic anemia secondary to blood loss with low with hemoglobin 6.7
Status post 2 units packed red blood cells
Transfuse to keep hemoglobin above 8
Continue IV PPI
Nutrition
NG tube in place.
Undergoing speech and swallow evaluation recommended n.p.o. given poor secretion management, macroglossia and risk for aspiration.
Bilateral upper extremity DVT
Started on Eliquis 05/22
Thrombocytopenia
Follow-up HIT panel
Discontinued heparin
DVT prophylaxis�Eliquis
Full code
Total time spent to see the patient on the floor, examine the patient, review data and lab results, discuss treatment plan with patient, nursing staff around 51 minutes.
Anticipated Discharge: 24 - 48 hours
Subjective/Interval History
-
Date of Service: May 24, 2024
Objective Data
-
Vital Signs:
Vital Signs
Temp Pulse Resp BP Pulse Ox
99.3 F 92 20 152/68 95
05/24/24 15:55 05/24/24 15:00 05/24/24 15:00 05/24/24 15:00 05/24/24 15:00
I&O
05/23/24 05/24/24 05/25/24
06:59 06:59 06:59
Intake Total 895 / 930 1290 / 1325 410 / 410
Output Total 120 / 120 310 / 310
Balance 775 / 810 980 / 1015 410 / 410
Physical Exam
-
General: Well Developed and No Apparent Distress
HEENT: Normocephalic, Atraumatic and Moist Mucous Membranes
Respiratory: Clear to Auscultation and Decreased Breath Sounds
Cardiac: Regular Rhythm and S1/S2; Negative Murmur, Rub or Gallop
GI: Soft, Nontender, Nondistended, Normal Bowel Sounds and Other (NG tube in place); Negative Organomegaly
Rectal: Deferred by Provider
Musculoskeletal: No Clubbing, No Cyanosis and Other (Bilateral AKA)
Skin: Negative Rash
Neuro: Awake, Alert, Oriented and Other (Intubated)
--- NOTE | 2024-05-24 19:46 | PTCARENOTE ---
Cannot verify vital signs prior to 1899, previous shift. Received patient AAOx2, disoriented to time, drowsy. Garbled speech, excessive secretions, suctioned curry, blood tinged secretions. Normal sinus 90s with occasional PVCs, BP 170s/70s,
normothermic. +2 generalized anasarca, palpable radial pulses bilaterally. 99% on room air, lung sounds coarse and rhonchorous throughout. Abdomen round, obese, hyperactive bowel sounds. Right nare DHT with nepro carbsteady infusing at goal, at 65
cm marking. Stevenson in place draining yellow urine, oliguric. Foam on sacrum CDI. Right DL PICC patent, WNL. Right dialysis cath CDI. Mouth care done, call skinner within reach.
[2024-05-24 21:39] LABS: Glucose - Point of Care 156 mg/dl (70-99)
[2024-05-24] MEDS: XALATAN OPHTHALMIC SOLUTION 1 DROP BOTH EYES (22:14)
[2024-05-25] VITALS (14 sets, daily range): BP systolic 129–174; BP diastolic 59–86; PULSE 89; O2SAT 99; BMI 19.6
[2024-05-25] MEDS: TYLENOL ORAL SOLUTION 650 MG TUBE ×5 (00:27→23:32)
[2024-05-25] MEDS: NOVOLOG FLEXPEN-LOW RESISTANCE SC ×3 (00:59→18:01)
[2024-05-25 01:03] LABS: Glucose - Point of Care 115 mg/dl (70-99)
[2024-05-25 04:38] LABS: Blood Urea Nitrogen 54 mg/dl (9-20); Calcium 7.9 mg/dl (8.4-10.2); Carbon Dioxide 25 mmol/L (22-30); Chloride 102 mmol/L (98-107); Estimated Creatinine Clearance 15 ml/min; Glucose 126 mg/dl (70-99); Hematocrit 26.1 % (39.0-52.0); Hemoglobin 8.8 g/dL (13.0-18.0); Mean Corp Hgb Conc. 33.7 g/dL (33.0-37.0); Mean Corpuscular Hgb 29.5 pg (27.0-31.0); Mean Corpuscular Volume 87.6 fL (80.0-94.0); Potassium 3.7 mmol/L (3.5-5.1); Red Blood Cell Count 2.98 10^6/uL (4.70-6.10); Red Cell Dist. Width 16.8 % (11.5-14.5); Sodium 137 mmol/L (135-145); White Blood Cell Count 11.3 10^3/uL (4.8-10.8); eGFR 22.12
[2024-05-25 05:23] LABS: Mean Platelet Volume 12.6 fL (7.4-10.4); Platelet Count 63 10^3/uL (130-400)
[2024-05-25 06:24] LABS: Glucose - Point of Care 114 mg/dl (70-99)
[2024-05-25] MEDS: APRESOLINE 50 MG TUBE ×3 (08:40→21:23)
[2024-05-25] MEDS: ALPHAGAN P 0.15% EYE DROPS 1 DROP BOTH EYES (08:40)
[2024-05-25] MEDS: ELIQUIS 10 MG PO ×2 (08:41→21:23)
[2024-05-25] MEDS: LEVOTHROID 50 MCG IV (08:41)
[2024-05-25] MEDS: KEPPRA 500 MG IV (08:41)
[2024-05-25] MEDS: COREG 6.25 MG TUBE ×2 (08:41→21:23)
[2024-05-25] MEDS: MIRALAX TUBE (08:42)
[2024-05-25] MEDS: DESENEX/MITRAZOL/ZEASORB 1 APPLIC TOPICAL ×2 (08:42→21:24)
[2024-05-25] MEDS: TRUSOPT 2% OPHTHALMIC SOLUTION 1 DROP BOTH EYES ×2 (08:42→21:24)
--- NOTE | 2024-05-25 09:27 | W.PN.NEPH.PH ---
Today's Communication / Plan
-
Hd tomorrow
Assessment/Plan
-
Impression:
HTN emergency
Suspected seizures with tongue bite
Acute respiratory failure -VDRF
Elevated troponin, most likely non-ischemic cardiac injury
Hx of pericardial effusion s/p pericardiocentesis
Recent abdominal discomfort
TORSTEN on CKD stage 5 -cr mid 4s in Mar
mixed acid base disorder-HAGMA and elevated lactate
Alkalemia with primary rep alkalosis
Macroglossia-severe hypothyroidism
Transaminitis
PAD s/p b/l AKA and femoral stents
Renal artery stenosis of solitary kidney-deemed not a candidate for renal artery revasc with poor vascular
Hx of prostate CA
HLD
Glaucoma
Hx of GIB
CHronic anemia
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
Stage 1 sacral wound
Diverticulosis
Coronary artery disease
Renal cancer with history of left nephrectomy
He also with MGUS supposed to see heme out pt but never happened for BM biopsy
Plan:
HD tomorrow,orders provided
remains essentially non oliguric
likely cannot use UE edema as gauge of volume given DVT
await HIT Ab negative
follow hgb
continue TF
-
-
Date of Service: May 25, 2024
CC / HPI / ROS
-
Chief Complaint:
TORSTEN with CKD4
History of Present Illness:
tolerated HD yesterday
oligoanuric with alicea
BP elevated
extubated 05/21
hgb 8.8
on eliquis for UE DVT
Review of Systems:
no fever
follows command
hearing impaired
NGT (high aspiration risks)
Labs
-
Labs:
WBC 11.3 10^3/uL (4.8-10.8) H 10/15/24 04:02
RBC 2.98 10^6/uL (4.70-6.10) L 05/25/24 04:02
Hgb 8.8 g/dL (13.0-18.0) L 05/25/24 04:02
Hct 26.1 % (39.0-52.0) L 05/25/24 04:02
Plt Count 63 10^3/uL (130-400) L D 05/25/24 04:02
Sodium 137 mmol/L (135-145) 05/25/24 04:02
Potassium 3.7 mmol/L (3.5-5.1) 05/25/24 04:02
Chloride 102 mmol/L (98-107) 05/25/24 04:02
Carbon Dioxide 25 mmol/L (22-30) 05/25/24 04:02
BUN 54 mg/dl (9-20) H 05/25/24 04:02
Creatinine 2.8 mg/dL (0.7-1.3) H 05/25/24 04:02
eGFR 22.12 05/25/24 04:02
Glucose 126 mg/dl (70-99) H 05/25/24 04:02
Calcium 7.9 mg/dl (8.4-10.2) L 05/25/24 04:02
Keq-T-Nsxdyaxwuhu Pept 6600 pg/ml 05/16/24 03:30
Albumin 3.0 g/dl (3.5-5.0) L 05/23/24 03:25
Physical Exam
-
Vital Signs:
Vital Signs
Temp Pulse Resp BP Pulse Ox
98.4 F 95 21 167/86 98
05/25/24 07:59 05/25/24 06:00 05/25/24 06:00 05/25/24 06:00 05/25/24 06:00
Cardiovascular:: Regular rate and rhythm
Respiratory:: Bilateral: Coarse
Lung Excursion:: Normal
Abdomen:: Nontender and Soft
Bowel Sounds:: Normal
Extremity Edema:: None: Bilateral: (bilateral)
Alicea Catheter: No
--- NOTE | 2024-05-25 10:48 | W.PN.HOSP.TC ---
Today's Communication/Plan
-
Supportive care.
Aspiration precautions.
Monitor platelets
Anticoagulation with Eliquis with caution.
Tube feeding
HD as per nephrology
Assessment / Plan
Assessment / Plan
78yo M with PMHx of severe PAD s/p b/l AKA s/p fem-fem bypass, Hx of prostate CA, CAD s/p PCI, stage 1 sacral pressure wound, glaucoma, labile HTN, Hx of pericardial effusion, R solitary kidney, Hx of retroperitoneal fibrosis, renal artery stenosis,
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
CKD, also developed UGIB
Impression:
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
Ventilatory dependent respiratory failure secondary to above
-Intubated for airway protection and secondary to macroglossia
Nosocomial/aspiration pneumonia with Serratia in sputum
Hypertensive emergency.
Tongue laceration and bleeding.
Acute kidney injury on CKD.
Persistent metabolic acidosis/lactic acidosis.
Provoked generalized seizure.
Acute bilateral upper extremity DVT
Abnormal LFT.
Thrombocytopenia
Conditions prior to admission:
Chronic kidney disease
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
Solitary kidney.
Chronic hydronephrosis.
CAD.
Essential hypertension
PAD.
Renal CA with history of left nephrectomy.
Plan:
VDRF.
Extubated on 05/21. Speech and swallow evaluation
Nosocomial/aspiration pneumonia
Sputum culture with Serratia.
Continue aspiration precautions.
Completed course of IV antibiotics
Myxedema coma.
TSH over 200, trending down to 72
Continue IV levothyroxine.
Corticosteroids tapered off
Hypertensive emergency.
Off Cardene drip
IV hydralazine/labetalol
Monitor BP with HD volume management
CAD by history. Echocardiogram 05/14 LVEF greater than 70%. Mild to moderate MR, mild to moderate AR, mild TR.
TORSTEN on CKD baseline persistent metabolic acidosis.
Azotemia.
Initiated on hemodialysis on 05/20
Continue dialysis as per nephrology
New onset/provoked generalized seizure.
Neurology consultation.
MRI of the brain shows possible acute to subacute infarction
Initiated on Keppra 500 mg daily
Laceration tonic with hemorrhage
Acute on chronic anemia secondary to blood loss with low with hemoglobin 6.7
Status post 2 units packed red blood cells
Transfuse to keep hemoglobin above 8
Continue IV PPI
Nutrition
NG tube in place.
Undergoing speech and swallow evaluation recommended n.p.o. given poor secretion management, macroglossia and risk for aspiration.
Bilateral upper extremity DVT
Started on Eliquis 05/22
Thrombocytopenia suspect consumptive
HIT panel negative.
Currently on Eliquis of heparin
DVT prophylaxis�Eliquis
Full code
Total time spent to see the patient on the floor, examine the patient, review data and lab results, discuss treatment plan with patient, nursing staff around 51 minutes.
Anticipated Discharge: > 48 hours
Subjective/Interval History
-
Date of Service: May 25, 2024
Objective Data
-
Labs:
Laboratory Results
05/25/24
04:02
WBC 11.3 H
Hgb 8.8 L
Hct 26.1 L
Plt Count 63 L D
Sodium 137
Potassium 3.7
Chloride 102
Carbon Dioxide 25
BUN 54 H
Creatinine 2.8 H
Glucose 126 H
Calcium 7.9 L
Vital Signs:
Vital Signs
Temp Pulse Resp BP Pulse Ox
98.4 F 86 19 132/59 98
05/25/24 07:59 05/25/24 10:00 05/25/24 10:00 05/25/24 10:00 05/25/24 10:00
I&O
05/24/24 05/25/24 05/26/24
06:59 06:59 06:59
Intake Total 1290 / 1325 1315 / 1315 190 / 190
Output Total 310 / 310 65 / 65 65 / 65
Balance 980 / 1015 1250 / 1250 125 / 125
Physical Exam
-
General: Well Developed and No Apparent Distress
HEENT: Normocephalic, Atraumatic and Moist Mucous Membranes
Respiratory: Clear to Auscultation and Decreased Breath Sounds
Cardiac: Regular Rhythm and S1/S2; Negative Murmur, Rub or Gallop
GI: Soft, Nontender, Nondistended, Normal Bowel Sounds and Other (NG tube in place); Negative Organomegaly
Rectal: Deferred by Provider
Musculoskeletal: No Clubbing, No Cyanosis and Other (Bilateral AKA)
Skin: Negative Rash
Neuro: Awake, Alert, Oriented and Other (Intubated)
[2024-05-25 12:04] LABS: Glucose - Point of Care 154 mg/dl (70-99)
[2024-05-25] MEDS: NOVOLOG FLEXPEN-LOW RESISTANCE 1 UNITS SC (12:24)
--- NOTE | 2024-05-25 13:40 | VATNOTE ---
confirmed with Dr Holm via tiger text that pt was able to maintain PICC with reported DVT in both extremities.
[2024-05-25 18:07] LABS: Glucose - Point of Care 114 mg/dl (70-99)
[2024-05-25] MEDS: XALATAN OPHTHALMIC SOLUTION 1 DROP BOTH EYES (21:24)
[2024-05-26] VITALS (28 sets, daily range): BP systolic 102–169; BP diastolic 56–75; BMI 19.7
[2024-05-26 00:04] LABS: Glucose - Point of Care 136 mg/dl (70-99)
[2024-05-26] MEDS: NOVOLOG FLEXPEN-LOW RESISTANCE SC ×4 (00:11→17:34)
--- NOTE | 2024-05-26 04:34 | DOWNTIME ---
There was a Ntractive Client Filer Repairer Downtime on 05/26/2024 from 0100 to 05/26/2024 at 0355. Downtime documentation of patient's care, including medication administrations, has been reconciled in the electronic record per guidelines. Refer to the
patient's paper chart under the miscellaneous tab to see printed paper medication records and downtime forms.
[2024-05-26] MEDS: TYLENOL ORAL SOLUTION 650 MG TUBE ×4 (05:01→23:33)
--- NOTE | 2024-05-26 05:17 | PTCARENOTE ---
still requires frequent suctioning- pt given chg bath- very drowsy but arouses- bp wnl
[2024-05-26 05:44] LABS: Glucose - Point of Care 141 mg/dl (70-99)
[2024-05-26] MEDS: LEVOTHROID 50 MCG IV (07:59)
[2024-05-26] MEDS: KEPPRA 500 MG IV (08:00)
[2024-05-26] MEDS: COREG 6.25 MG TUBE ×2 (08:03→20:30)
[2024-05-26] MEDS: APRESOLINE 50 MG TUBE ×2 (08:03→17:32)
[2024-05-26] MEDS: ELIQUIS 10 MG PO ×2 (08:03→20:30)
[2024-05-26] MEDS: ALPHAGAN P 0.15% EYE DROPS 1 DROP BOTH EYES (08:09)
[2024-05-26] MEDS: MIRALAX TUBE (08:09)
[2024-05-26] MEDS: TRUSOPT 2% OPHTHALMIC SOLUTION 1 DROP BOTH EYES ×2 (08:13→20:31)
[2024-05-26] MEDS: DESENEX/MITRAZOL/ZEASORB 1 APPLIC TOPICAL ×2 (08:13→20:32)
--- NOTE | 2024-05-26 10:39 | W.PN.HOSP.TC ---
Today's Communication/Plan
-
Speech and swallow evaluation
Aspiration precautions.
Tube feeding.
EGD
Follow platelet count
Assessment / Plan
Assessment / Plan
78yo M with PMHx of severe PAD s/p b/l AKA s/p fem-fem bypass, Hx of prostate CA, CAD s/p PCI, stage 1 sacral pressure wound, glaucoma, labile HTN, Hx of pericardial effusion, R solitary kidney, Hx of retroperitoneal fibrosis, renal artery stenosis,
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
CKD, also developed UGIB
Impression:
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
Ventilatory dependent respiratory failure secondary to above
-Intubated for airway protection and secondary to macroglossia
Nosocomial/aspiration pneumonia with Serratia in sputum
Hypertensive emergency.
Tongue laceration and bleeding.
Acute kidney injury on CKD.
Persistent metabolic acidosis/lactic acidosis.
Provoked generalized seizure.
Acute bilateral upper extremity DVT
Abnormal LFT.
Thrombocytopenia
Conditions prior to admission:
Chronic kidney disease
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
Solitary kidney.
Chronic hydronephrosis.
CAD.
Essential hypertension
PAD.
Renal CA with history of left nephrectomy.
Plan:
VDRF.
Extubated on 05/21. Speech and swallow evaluation
Nosocomial/aspiration pneumonia
Sputum culture with Serratia.
Continue aspiration precautions.
Completed course of IV antibiotics
Myxedema coma.
TSH over 200, trending down to 72
Continue IV levothyroxine.
Corticosteroids tapered off
Hypertensive emergency.
Off Cardene drip
IV hydralazine/labetalol
Monitor BP with HD volume management
CAD by history. Echocardiogram 05/14 LVEF greater than 70%. Mild to moderate MR, mild to moderate AR, mild TR.
TORSTEN on CKD baseline persistent metabolic acidosis.
Azotemia.
Initiated on hemodialysis on 05/20
Continue dialysis as per nephrology
New onset/provoked generalized seizure.
Neurology consultation.
MRI of the brain shows possible acute to subacute infarction
Initiated on Keppra 500 mg daily
Laceration tonic with hemorrhage
Acute on chronic anemia secondary to blood loss with low with hemoglobin 6.7
Status post 2 units packed red blood cells
Transfuse to keep hemoglobin above 8
Continue IV PPI
Nutrition
NG tube in place.
Undergoing speech and swallow evaluation recommended n.p.o. given poor secretion management, macroglossia and risk for aspiration.
Bilateral upper extremity DVT
Started on Eliquis 05/22
Thrombocytopenia suspect consumptive
HIT panel negative.
Currently on Eliquis of heparin
DVT prophylaxis�Eliquis
Full code
Total time spent to see the patient on the floor, examine the patient, review data and lab results, discuss treatment plan with patient, nursing staff around 51 minutes.
Anticipated Discharge: > 48 hours
Subjective/Interval History
-
Date of Service: May 26, 2024
Objective Data
-
Labs:
Laboratory Results
05/26/24
07:00
WBC Pending
Hgb Pending
Hct Pending
Plt Count Pending
Sodium Pending
Potassium Pending
Chloride Pending
Carbon Dioxide Pending
BUN Pending
Creatinine Pending
Glucose Pending
Calcium Pending
Vital Signs:
Vital Signs
Temp Pulse Resp BP Pulse Ox
99.5 F 90 20 158/74 98
05/26/24 07:00 05/26/24 08:00 05/26/24 08:00 05/26/24 08:00 05/26/24 08:00
I&O
05/25/24 05/26/24 05/27/24
06:59 06:59 06:59
Intake Total 1315 / 1315 1145 / 1145 200 / 200
Output Total 65 / 65 145 / 145
Balance 1250 / 1250 1000 / 1000 200 / 200
Physical Exam
-
General: Well Developed and No Apparent Distress
HEENT: Normocephalic, Atraumatic and Moist Mucous Membranes
Respiratory: Clear to Auscultation and Decreased Breath Sounds
Cardiac: Regular Rhythm and S1/S2; Negative Murmur, Rub or Gallop
GI: Soft, Nontender, Nondistended, Normal Bowel Sounds and Other (NG tube in place); Negative Organomegaly
Rectal: Deferred by Provider
Musculoskeletal: No Clubbing, No Cyanosis and Other (Bilateral AKA)
Skin: Negative Rash
Neuro: Awake, Alert, Oriented and Other (Intubated)
[2024-05-26 12:20] LABS: Glucose - Point of Care 135 mg/dl (70-99)
--- NOTE | 2024-05-26 13:06 | CM ---
CM following re: discharge planning.
Reviewed pt's chart, met with pt and spoke to pt's niece Yumiko over the phone to update on discharge plan progress.
CM spoke to [facility] senior corporate strategy manager and she confirmed that pt is accepted for outpatient HD treatment at [facility] on [facility] [address] [facility].
Pt's niece is aware that [facility] and [facility] offered a bed and [facility] and [facility] will need additional information to decide. pt's niece that that she and the pt prefer a SNF that closer to and in
case of Emergency pt will be able to transported top hospital. pt's niece requested [facility].
CM spoke to [facility] liaison and requested clinical faxed to [facility] HD team at [phone].
D/C plan: [facility] with HD treatment for a short term rehab and possibly for a LTC. [facility] dialysis center on [address] [facility] accepted the pt in case pt will return back home after a short term rehab.
CM will follow to assist pt with discharge to a preferred SNF with HD onsite.
[2024-05-26 13:10] LABS: % Basophils 0.2 % (0-2); % Eosinophils 3.7 % (0-6); % Immature Granulocytes 0.9 % (0-0.5); % Monocytes 5.8 % (1.7-9.3); % Neutrophils 86.4 % (42.2-75.2); Absolute Eosinophils 0.3 10^3/uL (0-0.7); Absolute Immature Granulocytes 0.1 10^3/uL (0-0.05); Absolute Lymphocytes 0.2 10^3/uL (1.2-3.4); Absolute Monocytes 0.5 10^3/uL (0.1-0.6); Hematocrit 23.6 % (39.0-52.0); Hemoglobin 7.8 g/dL (13.0-18.0); Mean Corp Hgb Conc. 33.1 g/dL (33.0-37.0); Mean Corpuscular Hgb 28.7 pg (27.0-31.0); Mean Corpuscular Volume 86.8 fL (80.0-94.0); Nucleated Red Blood Cells % 0.4 % (-); Red Blood Cell Count 2.72 10^6/uL (4.70-6.10); Red Cell Dist. Width 17.5 % (11.5-14.5); White Blood Cell Count 8.1 10^3/uL (4.8-10.8)
[2024-05-26 13:20] LABS: Blood Urea Nitrogen 78 mg/dl (9-20); Calcium 7.9 mg/dl (8.4-10.2); Carbon Dioxide 25 mmol/L (22-30); Chloride 98 mmol/L (98-107); Estimated Creatinine Clearance 11 ml/min; Glucose 133 mg/dl (70-99); Potassium 3.9 mmol/L (3.5-5.1); Sodium 136 mmol/L (135-145); eGFR 15.83
[2024-05-26] MEDS: MANNITOL 25% 12.5 GRAMS IV (13:21)
[2024-05-26] MEDS: RETACRIT 10000 UNITS IV (13:21)
[2024-05-26 14:13] LABS: Mean Platelet Volume 12.7 fL (7.4-10.4); Platelet Count 91 10^3/uL (130-400)
--- NOTE | 2024-05-26 14:37 | W.PN.NEPH.HD ---
Assessment
-
Seen on HD. lethargic. VSS, access ok. UF limited by hypotension
Progress Note - Hemodialysis
-
Date of Service: May 26, 2024
Duration: 30 minutes and 3 hours
Potassium Bath: 4
Calcium Bath: 2.5
Opti-Dialyzer: 160
Ultrafiltration: Other (1 kg)
Blood Flow: 400
Dialysate Flow: 600
Heparin: no
EPO: 19383 units
--- NOTE | 2024-05-26 16:13 | PTCARENOTE ---
Late entry: received patient on transfer from ICU via bed; TF infusing via dobhoff at goal of 35ml/hr. Patient lethargic. HD treatment started once he was on IMU.
[2024-05-26] MEDS: HEPARIN 3900 UNITS INTRACATH (16:21)
[2024-05-26 17:44] LABS: Glucose - Point of Care 136 mg/dl (70-99)
--- NOTE | 2024-05-26 20:00 | PTCARENOTE ---
This RN received report on pt from previous RN. Promptly following report, pt family arrived to pt room and noted that pt was not wearing a gown and did not have sheets covering him. This RN assessed pt to note that pt did not have a gown on and did
not have sheets covering him. Family asked to speak with the dials supervisor regarding this. This RN and assisting RN placed gown on pt and notified charge nurse, who spoke with pt family. Sheet was placed on pt at family request. This RN refrained from
placing blankets on the patient due to fever, pt family educated on this. Charge nurse notified nursing dials supervisor at request of family. Nursing dials supervisor spoke with family at bedside. This RN and nursing dials supervisor then answered many family
questions regarding medications and plan of care. Family states that they have not been included in pt's care and wishes to be contacted daily during physician rounds. Hygiene care performed and scheduled meds given with family at bedside.
[2024-05-26] MEDS: TYLENOL/FEVERALL 650 MG RECTAL (20:16)
[2024-05-26] MEDS: APRESOLINE TUBE (23:35)
[2024-05-26] MEDS: XALATAN OPHTHALMIC SOLUTION 1 DROP BOTH EYES (23:35)
[2024-05-27] VITALS (17 sets, daily range): BP systolic 126–153; BP diastolic 61–92; PULSE 92–93; O2SAT 100; BMI 19.8
[2024-05-27 00:40] LABS: Glucose - Point of Care 151 mg/dl (70-99)
[2024-05-27] MEDS: NOVOLOG FLEXPEN-LOW RESISTANCE 1 UNITS SC ×2 (00:54→18:06)
--- NOTE | 2024-05-27 01:48 | PTCARENOTE ---
Addendum entered by Le Santiago 05/27/24 03:27:
Responds appropriately to conversation with garbled, slow speech.*
Original Note:
Rec'd pt from previous RN. Pt resting in bed without complaint, denies pain. Drowsy, but arousable to voice and responds appropriately to Tmax 100.5, PRN rectal tylenol given per MAR with relief to 100.0. Pt received 1 unit insulin for BG 151. Inc
of loose brown stool, hygiene care performed. Stevenson care performed. Frequent repositioning in place to prevent skin breakdown. TF patent through dobhoff at goal of 35ml/hr.
[2024-05-27] MEDS: TYLENOL ORAL SOLUTION 650 MG TUBE ×3 (05:22→17:00)
[2024-05-27 05:44] LABS: Glucose - Point of Care 124 mg/dl (70-99)
[2024-05-27] MEDS: NOVOLOG FLEXPEN-LOW RESISTANCE SC ×2 (05:47→13:33)
--- NOTE | 2024-05-27 09:15 | PTOTSP ---
Speech Language Pathology
Pt seen for speech and cognitive-linguistic evaluations. Mod to severe dysarthria noted. Pt with no awareness of dysarthria, stating he sounds 'clear.' Mod-severe cognitive deficits noted as well. Poor insight into deficits noted.
Pt also seen for clinical bedside swallow evaluation. P.O. trials of puree (x1) and ice chips (x2) provided. No swallow initiated with ice chips. Able to generate weak swallow of saliva with max cueing. With puree, weak swallow initiated
followed by wet cough. Majority of bolus remained in oral cavity with need for oral suctioning by SEWER DIGGER. Further P.O. trials deferred.
Recommend:
(1) Strict NPO
(2) Oral care 4x/day with suctioning as needed
(3) Not appropriate for Aspiration Risk Hydration Protocol (ARHP) at this time given largely absent swallow with P.O.
(4) SEWER DIGGER to continue to follow for dysphagia, dysarthria, and cognitive-linguistic tx
--- NOTE | 2024-05-27 09:31 | PTCARENOTE ---
Patient alert and awake. Patient can say name and date, very garbled speech. Patient forgetful, confused to his medical conditions and what happened to him. Patient tolerating tube feed via right nare dobhoff. Stevenson draining deirdre amount
of cloudy dark yellow urine. VS stable, 100% on room air. SR on monitor with heart rates in the 90's.
[2024-05-27] MEDS: LEVOTHROID 50 MCG IV (09:47)
[2024-05-27] MEDS: KEPPRA 500 MG IV (09:56)
[2024-05-27] MEDS: DESENEX/MITRAZOL/ZEASORB 1 APPLIC TOPICAL ×2 (09:57→21:08)
[2024-05-27] MEDS: ELIQUIS 10 MG PO ×2 (09:58→21:07)
[2024-05-27] MEDS: COREG 6.25 MG TUBE ×2 (10:00→21:07)
[2024-05-27] MEDS: MIRALAX TUBE (10:01)
[2024-05-27] MEDS: ALPHAGAN P 0.15% EYE DROPS 1 DROP BOTH EYES (10:01)
[2024-05-27] MEDS: TRUSOPT 2% OPHTHALMIC SOLUTION 1 DROP BOTH EYES ×2 (10:02→21:09)
--- NOTE | 2024-05-27 11:37 | W.PN.NEPH.PH ---
Today's Communication / Plan
-
HD tomorrow
Assessment/Plan
-
Impression:
HTN emergency
Suspected seizures with tongue bite
Acute respiratory failure -VDRF
Elevated troponin, most likely non-ischemic cardiac injury
Hx of pericardial effusion s/p pericardiocentesis
Recent abdominal discomfort
TORSTEN on CKD stage 5 -cr mid 4s in Mar
mixed acid base disorder-HAGMA and elevated lactate
Alkalemia with primary rep alkalosis
Macroglossia-severe hypothyroidism
Transaminitis
PAD s/p b/l AKA and femoral stents
Renal artery stenosis of solitary kidney-deemed not a candidate for renal artery revasc with poor vascular
Hx of prostate CA
HLD
Glaucoma
Hx of GIB
CHronic anemia
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
Stage 1 sacral wound
Diverticulosis
Coronary artery disease
Renal cancer with history of left nephrectomy
He also with MGUS supposed to see heme out pt but never happened for BM biopsy
Plan:
HD tomorrow, orders provided
remains essentially non oliguric
likely cannot use UE edema as gauge of volume given DVT
follow hgb
continue TF
alicea per urology *dorsal slit)
-
-
Date of Service: May 27, 2024
CC / HPI / ROS
-
Chief Complaint:
TORSTEN with CKD4
History of Present Illness:
tolerated HD yesterday
oligoanuric with alicea
BP elevated
extubated 05/21
hgb 7.8
on eliquis for UE DVT
NGT/TF in place
Review of Systems:
no fever
more awake
Labs
-
Labs:
Sodium 136 mmol/L (135-145) 05/26/24 12:51
Potassium 3.9 mmol/L (3.5-5.1) 05/26/24 12:51
Chloride 98 mmol/L (98-107) 05/26/24 12:51
Carbon Dioxide 25 mmol/L (22-30) 05/26/24 12:51
BUN 78 mg/dl (9-20) H 05/26/24 12:51
Creatinine 3.7 mg/dL (0.7-1.3) H 05/26/24 12:51
eGFR 15.83 05/26/24 12:51
Glucose 133 mg/dl (70-99) H 05/26/24 12:51
Calcium 7.9 mg/dl (8.4-10.2) L 05/26/24 12:51
Uly-U-Tpwjazxukmd Pept 6600 pg/ml 05/16/24 03:30
Albumin 3.0 g/dl (3.5-5.0) L 05/23/24 03:25
Physical Exam
-
Vital Signs:
Vital Signs
Temp Pulse Resp BP Pulse Ox
99.2 F 89 7 127/67 100
05/27/24 07:25 05/27/24 06:00 05/27/24 06:00 05/27/24 06:00 05/27/24 06:38
Cardiovascular:: Regular rate and rhythm
Respiratory:: Bilateral: Coarse
Lung Excursion:: Normal
Abdomen:: Nontender and Soft
Bowel Sounds:: Normal
Extremity Edema:: +3: Bilateral:
--- NOTE | 2024-05-27 11:44 | W.PN.HOSP.TC ---
Today's Communication/Plan
-
Mental status improved.
Daily speech and swallow evaluation with current recommendation for NPO.
HD as per schedule.
IV levothyroxine.
Tube feeds with aspiration precautions
Physical therapy evaluation
Bilateral upper extremity DVT on anticoagulation with Eliquis. PICC line is in place. Will ask interventional radiology to evaluate for IJ placement with attempt to PICC line removal.
Assessment / Plan
Assessment / Plan
78yo M with PMHx of severe PAD s/p b/l AKA s/p fem-fem bypass, Hx of prostate CA, CAD s/p PCI, stage 1 sacral pressure wound, glaucoma, labile HTN, Hx of pericardial effusion, R solitary kidney, Hx of retroperitoneal fibrosis, renal artery stenosis,
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
CKD, also developed UGIB
Impression:
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
Ventilatory dependent respiratory failure secondary to above
-Intubated for airway protection and secondary to macroglossia
Nosocomial/aspiration pneumonia with Serratia in sputum
Hypertensive emergency.
Tongue laceration and bleeding.
Acute kidney injury on CKD.
Persistent metabolic acidosis/lactic acidosis.
Provoked generalized seizure.
Acute bilateral upper extremity DVT
Abnormal LFT.
Thrombocytopenia
Conditions prior to admission:
Chronic kidney disease
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
Solitary kidney.
Chronic hydronephrosis.
CAD.
Essential hypertension
PAD.
Renal CA with history of left nephrectomy.
Plan:
VDRF.
Extubated on 05/21. Speech and swallow evaluation
Nosocomial/aspiration pneumonia
Sputum culture with Serratia.
Continue aspiration precautions.
Completed course of IV antibiotics
Myxedema coma.
TSH over 200, trending down to 72
Continue IV levothyroxine.
Corticosteroids tapered off
Hypertensive emergency.
Off Cardene drip
IV hydralazine/labetalol
Monitor BP with HD volume management
CAD by history. Echocardiogram 05/14 LVEF greater than 70%. Mild to moderate MR, mild to moderate AR, mild TR.
TORSTEN on CKD baseline persistent metabolic acidosis.
Azotemia.
Initiated on hemodialysis on 05/20
Continue dialysis as per nephrology
New onset/provoked generalized seizure.
Neurology consultation.
MRI of the brain shows possible acute to subacute infarction
Initiated on Keppra 500 mg daily
Laceration tonic with hemorrhage
Acute on chronic anemia secondary to blood loss with low with hemoglobin 6.7
Status post 2 units packed red blood cells
Transfuse to keep hemoglobin above 8
Continue IV PPI
Nutrition
NG tube in place.
Undergoing speech and swallow evaluation recommended n.p.o. given poor secretion management, macroglossia and risk for aspiration.
Bilateral upper extremity DVT
Started on Eliquis 05/22
Thrombocytopenia suspect consumptive
HIT panel negative.
Currently on Eliquis of heparin
DVT prophylaxis�Eliquis
Full code
Anticipated Discharge: > 48 hours
Subjective/Interval History
-
Date of Service: May 27, 2024
Objective Data
-
Labs:
Laboratory Results
05/27/24
09:25
WBC Pending
Hgb Pending
Hct Pending
Plt Count Pending
Vital Signs:
Vital Signs
Temp Pulse Resp BP Pulse Ox
99.2 F 89 7 127/67 100
05/27/24 07:25 05/27/24 06:00 05/27/24 06:00 05/27/24 06:00 05/27/24 06:38
I&O
05/26/24 05/27/24 05/28/24
06:59 06:59 06:59
Intake Total 1145 / 1145 680 / 680
Output Total 145 / 145 100 / 100
Balance 1000 / 1000 580 / 580
Physical Exam
-
General: Well Developed and No Apparent Distress
HEENT: Normocephalic, Atraumatic and Moist Mucous Membranes
Respiratory: Clear to Auscultation
Cardiac: Regular Rhythm and S1/S2; Negative Murmur, Rub or Gallop
GI: Soft, Nontender, Nondistended and Normal Bowel Sounds; Negative Organomegaly
Rectal: Deferred by Provider
Musculoskeletal: No Clubbing, No Cyanosis and No Edema
Skin: Negative Rash
Neuro: Nonfocal/Grossly Intact
--- NOTE | 2024-05-27 12:17 | W.PN.UPDATE ---
Update Note
Progress Note Update
Discussion with interventional radiology in terms of access and bilateral upper extremity thrombosis.
Left side only basilic vein clot which is definitely noted DVT circulation.
As long as patient can be on anticoagulation, removal of the right PICC line not recommended, unless patient developing limb threatening swelling.
Patient has increased risk of thrombosis at any site, so a new axis would not necessarily improving situation.
[2024-05-27 13:02] LABS: Glucose - Point of Care 112 mg/dl (70-99)
[2024-05-27] MEDS: APRESOLINE TUBE (13:33)
[2024-05-27 15:12] LABS: Hematocrit 21.5 % (39.0-52.0); Mean Corp Hgb Conc. 32.6 g/dL (33.0-37.0); Mean Corpuscular Hgb 29.4 pg (27.0-31.0); Mean Corpuscular Volume 90.3 fL (80.0-94.0); Red Blood Cell Count 2.38 10^6/uL (4.70-6.10); Red Cell Dist. Width 17.3 % (11.5-14.5); White Blood Cell Count 6.9 10^3/uL (4.8-10.8)
[2024-05-27 15:38] LABS: % Basophils 0.1 % (0-2); % Eosinophils 2.7 % (0-6); % Lymphocytes 2.6 % (20.5-51.1); % Monocytes 4.3 % (1.7-9.3); % Neutrophils 89.3 % (42.2-75.2); Absolute Eosinophils 0.2 10^3/uL (0-0.7); Absolute Immature Granulocytes 0.1 10^3/uL (0-0.05); Absolute Lymphocytes 0.2 10^3/uL (1.2-3.4); Absolute Monocytes 0.3 10^3/uL (0.1-0.6); Absolute Neutrophils 6.2 10^3/uL (1.4-6.5); Mean Platelet Volume 12.9 fL (7.4-10.4); Nucleated Red Blood Cells % 0.9 % (-); Platelet Count 92 10^3/uL (130-400)
[2024-05-27] MEDS: APRESOLINE 50 MG TUBE ×2 (17:00→22:27)
--- NOTE | 2024-05-27 17:14 | VATNOTE ---
called to assess right picc line leaking; noted moderate amount of blood on bio patch and down thru end of dsg. Redressed per protocol with 2 Quikclots applied @ 8300. PCN informed.
[2024-05-27 18:16] LABS: Glucose - Point of Care 151 mg/dl (70-99)
[2024-05-27] MEDS: XALATAN OPHTHALMIC SOLUTION 1 DROP BOTH EYES (22:28)
[2024-05-28] VITALS (32 sets, daily range): BP systolic 113–178; BP diastolic 58–91; BMI 19.8
[2024-05-28 00:12] LABS: Glucose - Point of Care 131 mg/dl (70-99)
[2024-05-28] MEDS: NOVOLOG FLEXPEN-LOW RESISTANCE SC ×4 (00:22→17:51)
--- NOTE | 2024-05-28 00:32 | PTCARENOTE ---
Pt received from previous RN. Pt alert to self. Occasionally makes one or two word statements, can answer yes or no questions. Awake and arousable to verbal stimuli. dobhoff in right nare, TF @35/hr, no flush. Stevenson in place, draining small amounts
of tea colored urine. Stevenson care preformed. HS oral care done. Q2T maintained.
[2024-05-28] MEDS: TYLENOL ORAL SOLUTION 650 MG TUBE ×4 (00:57→23:50)
[2024-05-28] MEDS: TYLENOL/FEVERALL 650 MG RECTAL (04:17)
[2024-05-28 05:08] LABS: Blood Urea Nitrogen 71 mg/dl (9-20); Calcium 7.8 mg/dl (8.4-10.2); Carbon Dioxide 25 mmol/L (22-30); Chloride 99 mmol/L (98-107); Estimated Creatinine Clearance 13 ml/min; Glucose 128 mg/dl (70-99); Potassium 4.1 mmol/L (3.5-5.1); Sodium 134 mmol/L (135-145); eGFR 18.84
[2024-05-28 05:38] LABS: % Basophils 0.1 % (0-2); % Immature Granulocytes 0.8 % (0-0.5); % Lymphocytes 3.1 % (20.5-51.1); % Monocytes 4.8 % (1.7-9.3); % Neutrophils 88.2 % (42.2-75.2); Absolute Eosinophils 0.2 10^3/uL (0-0.7); Absolute Immature Granulocytes 0.1 10^3/uL (0-0.05); Absolute Lymphocytes 0.2 10^3/uL (1.2-3.4); Absolute Monocytes 0.3 10^3/uL (0.1-0.6); Absolute Neutrophils 6.2 10^3/uL (1.4-6.5); Hematocrit 20.3 % (39.0-52.0); Hemoglobin 6.5 g/dL (13.0-18.0); Mean Corpuscular Hgb 28.3 pg (27.0-31.0); Mean Corpuscular Volume 88.3 fL (80.0-94.0); Mean Platelet Volume 12.8 fL (7.4-10.4); Nucleated Red Blood Cells % 0.6 % (-); Platelet Count 104 10^3/uL (130-400); Red Cell Dist. Width 17.7 % (11.5-14.5); White Blood Cell Count 7.1 10^3/uL (4.8-10.8)
[2024-05-28 05:41] LABS: Glucose - Point of Care 127 mg/dl (70-99)
--- NOTE | 2024-05-28 05:45 | PTCARENOTE ---
hgb 6.5. BANKING SERVICES ADVISOR notified.
--- NOTE | 2024-05-28 05:48 | W.PN.UPDATE ---
Update Note
Progress Note Update
hgb level 6.5 this morning, Vital signs within normal level. One unit of blood ordered.
--- NOTE | 2024-05-28 08:55 | PTOTSP ---
Speech Language Pathology
Pt seen for speech/cognitive-linguistic tx. Mod dysarthria and mod-severe cognitive deficits noted. No response to questions at times. Asked pt if he was having difficulty hearing, and he denied this, so question whether related to
cognition/processing. Significant difficulty with simple verbal problem solving scenarios for safety. Unable to identify number to call in an emergency despite cue of first number. When asked what someone should do if they drop a lit match on a
carpet, he stated 're-start the bath.' Poor reasoning and insight noted.
Also seen for dysphagia tx. Pt sleeping soundly upon arrival with significantly wet breath sounds. Able to adequately rouse, although pt did endorse feeling tired. Oral suctioning with use of suction toothbrush utilized. Do not suspect pt
consistently swallowing secretions based on secretions suctioned from oral cavity. Provided ice chip x2 and 3ccs of water via pipetted straw x1. No swallow noted with ice chips despite max cueing. With pipetted water, pt with swallow initiation,
but this was weak, suspect only partial swallow, with resultant wet coughing. Further P.O. trials deferred.
Recommend:
(1) Strict NPO
(2) Oral care 4x/day with suctioning as needed
(3) Not appropriate for Aspiration Risk Hydration Protocol (ARHP) at this time given largely absent swallow with P.O.
(4) PLATFORM STAPLER to continue to follow for dysphagia, dysarthria, and cognitive-linguistic tx
[2024-05-28] MEDS: MIRALAX 17 GRAMS TUBE (09:44)
[2024-05-28] MEDS: KEPPRA 500 MG IV (09:44)
[2024-05-28] MEDS: LEVOTHROID 50 MCG IV (09:44)
[2024-05-28] MEDS: ELIQUIS 10 MG PO ×2 (09:45→20:19)
[2024-05-28] MEDS: FLUSH (NSS) 5 FLUSH IV (09:45)
[2024-05-28] MEDS: COREG 6.25 MG TUBE ×2 (09:46→20:18)
[2024-05-28] MEDS: APRESOLINE 50 MG TUBE ×2 (09:46→22:23)
[2024-05-28] MEDS: DESENEX/MITRAZOL/ZEASORB 1 APPLIC TOPICAL ×2 (09:46→20:19)
[2024-05-28 11:59] LABS: Glucose - Point of Care 139 mg/dl (70-99)
[2024-05-28] MEDS: RETACRIT 10000 UNITS IV (13:44)
--- NOTE | 2024-05-28 13:56 | W.PN.NEPH.HD ---
Assessment
-
Patient seen on dialysis
u/f at 1.5kg
sbp stable at current u/f
Progress Note - Hemodialysis
-
Date of Service: May 28, 2024
Duration: 30 minutes and 3 hours
Potassium Bath: 3
Calcium Bath: 2.5
Opti-Dialyzer: 160
Ultrafiltration: Other (1.5kg)
Blood Flow: 400
Dialysate Flow: 600
Heparin: none
EPO: 10K
[2024-05-28] MEDS: ALPHAGAN P 0.15% EYE DROPS 1 DROP BOTH EYES (14:02)
[2024-05-28] MEDS: TRUSOPT 2% OPHTHALMIC SOLUTION 1 DROP BOTH EYES ×2 (14:03→20:30)
--- NOTE | 2024-05-28 14:17 | W.PN.HOSP.TC ---
Today's Communication/Plan
-
Remains with significant aspiration risk due to macroglossia and poorly controlled secretions
Keep n.p.o.
Continue tube feeding
Daily speech evaluation.
HD as per schedule.
Monitor hemoglobin, transfuse if below 8.
IV levothyroxine.
Monitor closely for recurrent fever
Assessment / Plan
Assessment / Plan
78yo M with PMHx of severe PAD s/p b/l AKA s/p fem-fem bypass, Hx of prostate CA, CAD s/p PCI, stage 1 sacral pressure wound, glaucoma, labile HTN, Hx of pericardial effusion, R solitary kidney, Hx of retroperitoneal fibrosis, renal artery stenosis,
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
CKD, also developed UGIB
Impression:
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
Ventilatory dependent respiratory failure secondary to above
-Intubated for airway protection and secondary to macroglossia
Nosocomial/aspiration pneumonia with Serratia in sputum
Hypertensive emergency.
Tongue laceration and bleeding.
Acute kidney injury on CKD.
Persistent metabolic acidosis/lactic acidosis.
Provoked generalized seizure.
Acute bilateral upper extremity DVT
Abnormal LFT.
Thrombocytopenia
Conditions prior to admission:
Chronic kidney disease
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
Solitary kidney.
Chronic hydronephrosis.
CAD.
Essential hypertension
PAD.
Renal CA with history of left nephrectomy.
Plan:
VDRF.
Extubated on 05/21. Speech and swallow evaluation
Nosocomial/aspiration pneumonia
Sputum culture with Serratia.
Continue aspiration precautions.
Completed course of IV antibiotics
Myxedema coma.
TSH over 200, trending down to 72
Continue IV levothyroxine.
Corticosteroids tapered off
Hypertensive emergency.
Off Cardene drip
IV hydralazine/labetalol
Monitor BP with HD volume management
CAD by history. Echocardiogram 05/14 LVEF greater than 70%. Mild to moderate MR, mild to moderate AR, mild TR.
TORSTEN on CKD baseline persistent metabolic acidosis.
Azotemia.
Initiated on hemodialysis on 05/20
Continue dialysis as per nephrology
New onset/provoked generalized seizure.
Neurology consultation.
MRI of the brain shows possible acute to subacute infarction
Initiated on Keppra 500 mg daily
Laceration tonic with hemorrhage
Acute on chronic anemia secondary to blood loss with low with hemoglobin 6.7
Status post 2 units packed red blood cells
Transfuse to keep hemoglobin above 8
Continue IV PPI
Nutrition
NG tube in place.
Undergoing speech and swallow evaluation recommended n.p.o. given poor secretion management, macroglossia and risk for aspiration.
Bilateral upper extremity DVT
Started on Eliquis 05/22
Thrombocytopenia suspect consumptive
HIT panel negative.
Currently on Eliquis of heparin
DVT prophylaxis�Eliquis
Full code
Anticipated Discharge: > 48 hours
Subjective/Interval History
-
Date of Service: May 28, 2024
Objective Data
-
Labs:
Laboratory Results
05/28/24
04:09
WBC 7.1
Hgb 6.5 L*
Hct 20.3 L*
Plt Count 104 L
Sodium 134 L
Potassium 4.1
Chloride 99
Carbon Dioxide 25
BUN 71 H
Creatinine 3.2 H
Glucose 128 H
Calcium 7.8 L
Vital Signs:
Vital Signs
Temp Pulse Resp BP Pulse Ox
97.5 F 85 18 162/78 100
05/28/24 14:01 05/28/24 14:01 05/28/24 14:01 05/28/24 14:01 05/28/24 10:36
I&O
05/27/24 05/28/24 05/29/24
06:59 06:59 06:59
Intake Total 680 / 680 500 / 500 250 / 250
Output Total 100 / 100 210 / 210
Balance 580 / 580 290 / 290 250 / 250
Physical Exam
-
General: Well Developed and No Apparent Distress
HEENT: Normocephalic, Atraumatic and Moist Mucous Membranes
Respiratory: Clear to Auscultation
Cardiac: Regular Rhythm and S1/S2; Negative Murmur, Rub or Gallop
GI: Soft, Nontender, Nondistended and Normal Bowel Sounds; Negative Organomegaly
Rectal: Deferred by Provider
Musculoskeletal: No Clubbing, No Cyanosis and No Edema
Skin: Negative Rash
Neuro: Nonfocal/Grossly Intact
[2024-05-28 14:19] LABS: Glucose - Point of Care 110 mg/dl (70-99)
--- NOTE | 2024-05-28 14:25 | PTCARENOTE ---
Patient received one unit of PRBC's without incident.
[2024-05-28] MEDS: HEPARIN 3900 UNITS INTRACATH (16:09)
--- NOTE | 2024-05-28 16:23 | CM ---
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 Room air. Transfusion today. Receiving IV Keppra. ST - keep
NPO. Dobhoff- Tube feeding. PT/OT recommends skilled rehab.
As per prior CM notes: [facility] [place] training manager confirmed that pt is accepted for outpatient HD treatment at [facility] on [address]. Patient accepted by [facility].
Confirmed with Dr Neumann that patient's renal diagnosis will be ESRD.
Phone call to [facility]; she confirmed that this patient was accepted by [facility] for dialysis while at SNF. She appreciated knowing updated renal diagnosis ESRD so patient will be able to receive dialysis in-house if he
stays in alf care.
Plan [facility] when medically ready, with outpatient HD [facility].
[2024-05-28 17:36] LABS: Glucose - Point of Care 70 mg/dl (70-99)
[2024-05-28] MEDS: APRESOLINE TUBE (17:45)
[2024-05-28] MEDS: TYLENOL ORAL SOLUTION TUBE (17:45)
--- NOTE | 2024-05-28 17:57 | PTCARENOTE ---
Patient tolerated HD today. Patient drowsy today, not as alert and awake as yesterday. VS stable.
[2024-05-28] MEDS: XALATAN OPHTHALMIC SOLUTION 1 DROP BOTH EYES (22:24)
[2024-05-28] MEDS: NOVOLOG FLEXPEN-LOW RESISTANCE 1 UNITS SC (23:50)
[2024-05-29] VITALS (15 sets, daily range): BP systolic 106–158; BP diastolic 50–72; BMI 19.6
[2024-05-29] LABS: Glucose - Point of Care 152 mg/dl (70-99)
[2024-05-29 00:12] LABS: Glucose - Point of Care 133 mg/dl (70-99)
[2024-05-29 05:42] LABS: % Basophils 0.3 % (0-2); % Eosinophils 3.1 % (0-6); % Immature Granulocytes 0.6 % (0-0.5); % Monocytes 4.8 % (1.7-9.3); % Neutrophils 87.2 % (42.2-75.2); Absolute Eosinophils 0.3 10^3/uL (0-0.7); Absolute Immature Granulocytes 0.1 10^3/uL (0-0.05); Absolute Lymphocytes 0.3 10^3/uL (1.2-3.4); Absolute Monocytes 0.4 10^3/uL (0.1-0.6); Absolute Neutrophils 6.9 10^3/uL (1.4-6.5); Hematocrit 25.6 % (39.0-52.0); Hemoglobin 8.4 g/dL (13.0-18.0); Mean Corp Hgb Conc. 32.8 g/dL (33.0-37.0); Mean Corpuscular Hgb 29.1 pg (27.0-31.0); Mean Corpuscular Volume 88.6 fL (80.0-94.0); Mean Platelet Volume 11.9 fL (7.4-10.4); Nucleated Red Blood Cells % 0.6 % (-); Platelet Count 116 10^3/uL (130-400); Red Blood Cell Count 2.89 10^6/uL (4.70-6.10); Red Cell Dist. Width 18.4 % (11.5-14.5)
[2024-05-29] MEDS: TYLENOL ORAL SOLUTION 650 MG TUBE ×3 (05:54→18:42)
[2024-05-29 06:01] LABS: Blood Urea Nitrogen 52 mg/dl (9-20); Calcium 7.8 mg/dl (8.4-10.2); Carbon Dioxide 28 mmol/L (22-30); Chloride 99 mmol/L (98-107); Estimated Creatinine Clearance 16 ml/min; Glucose 125 mg/dl (70-99); Potassium 3.9 mmol/L (3.5-5.1); Sodium 137 mmol/L (135-145)
[2024-05-29] MEDS: NOVOLOG FLEXPEN-LOW RESISTANCE SC ×3 (06:10→18:24)
--- NOTE | 2024-05-29 06:18 | PTCARENOTE ---
Pt initially received drowsy. aroused to name. Disoriented to place and time. this am pt more awake and knows where he is and month. Tolerating tube feeds. Incontinent of liquid brown stool. Assessment as charted.
--- NOTE | 2024-05-29 08:47 | W.PN.NEPH.PH ---
Today's Communication / Plan
-
Next dialysis Friday
Assessment/Plan
-
Impression:
HTN emergency
Suspected seizures with tongue bite
Acute respiratory failure -VDRF
Elevated troponin, most likely non-ischemic cardiac injury
Hx of pericardial effusion s/p pericardiocentesis
Recent abdominal discomfort
TORSTEN on CKD stage 5 -cr mid 4s in Mar
mixed acid base disorder-HAGMA and elevated lactate
Alkalemia with primary rep alkalosis
Macroglossia-severe hypothyroidism
Transaminitis
PAD s/p b/l AKA and femoral stents
Renal artery stenosis of solitary kidney-deemed not a candidate for renal artery revasc with poor vascular
Hx of prostate CA
HLD
Glaucoma
Hx of GIB
CHronic anemia
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
Stage 1 sacral wound
Diverticulosis
Coronary artery disease
Renal cancer with history of left nephrectomy
He also with MGUS supposed to see heme out pt but never happened for BM biopsy
Plan:
HD Friday
likely cannot use UE edema as gauge of volume given DVT
follow hgb
continue TF
alicea per urology *dorsal slit)
-
-
Date of Service: May 29, 2024
CC / HPI / ROS
-
Chief Complaint:
TORSTEN with CKD4
History of Present Illness:
tolerated HD yesterday
oligoanuric with alicea
BP elevated
extubated 05/21
hgb 8.4
on eliquis for UE DVT
NGT/TF in place
Review of Systems:
no fever
more awake
Labs
-
Labs:
WBC 8.0 10^3/uL (4.8-10.8) 05/29/24 05:22
RBC 2.89 10^6/uL (4.70-6.10) L 05/29/24 05:22
Hgb 8.4 g/dL (13.0-18.0) L D 05/29/24 05:22
Hct 25.6 % (39.0-52.0) L 05/29/24 05:22
Plt Count 116 10^3/uL (130-400) L 05/29/24 05:22
Sodium 137 mmol/L (135-145) 05/29/24 05:22
Potassium 3.9 mmol/L (3.5-5.1) 05/29/24 05:22
Chloride 99 mmol/L (98-107) 05/29/24 05:22
Carbon Dioxide 28 mmol/L (22-30) 05/29/24 05:22
BUN 52 mg/dl (9-20) H 05/29/24 05:22
Creatinine 2.7 mg/dL (0.7-1.3) H 05/29/24 05:22
eGFR 23.10 05/29/24 05:22
Glucose 125 mg/dl (70-99) H 05/29/24 05:22
Calcium 7.8 mg/dl (8.4-10.2) L 05/29/24 05:22
Pkw-W-Vycmqgnqgtl Pept 6600 pg/ml 05/16/24 03:30
Albumin 3.0 g/dl (3.5-5.0) L 05/23/24 03:25
Physical Exam
-
Vital Signs:
Vital Signs
Temp Pulse Resp BP Pulse Ox
100.2 F 99 22 151/65 100
05/29/24 04:25 05/29/24 00:00 05/29/24 00:00 05/29/24 00:00 05/29/24 00:00
Cardiovascular:: Regular rate and rhythm
Respiratory:: Bilateral: Coarse
Lung Excursion:: Normal
Abdomen:: Nontender and Soft
Bowel Sounds:: Normal
Extremity Edema:: +2: Bilateral:
Alicea Catheter: Yes
--- NOTE | 2024-05-29 08:51 | PTCARENOTE ---
Vitals from midnight -present pulled over, cannot verify accuracy up until 0800.
[2024-05-29] MEDS: ALPHAGAN P 0.15% EYE DROPS 1 DROP BOTH EYES (10:40)
[2024-05-29] MEDS: COREG 6.25 MG TUBE ×2 (10:41→21:13)
[2024-05-29] MEDS: ELIQUIS 10 MG PO (10:41)
[2024-05-29] MEDS: APRESOLINE 50 MG TUBE (10:41)
[2024-05-29] MEDS: DESENEX/MITRAZOL/ZEASORB 1 APPLIC TOPICAL ×2 (10:42→21:15)
[2024-05-29] MEDS: LEVOTHROID 50 MCG IV (10:43)
[2024-05-29] MEDS: KEPPRA 500 MG IV (10:43)
[2024-05-29] MEDS: MIRALAX TUBE (10:44)
[2024-05-29] MEDS: TRUSOPT 2% OPHTHALMIC SOLUTION 1 DROP BOTH EYES ×2 (10:44→21:16)
--- NOTE | 2024-05-29 11:54 | W.PN.HOSP.TC ---
Today's Communication/Plan
-
repeat infectious w/u
Asked RN to inform INDUSTRIAL RELATIONS COMMISSIONER to reassess as macroglossia improving
Assessment / Plan
Assessment / Plan
78yo M with PMHx of severe PAD s/p b/l AKA s/p fem-fem bypass, Hx of prostate CA, CAD s/p PCI, stage 1 sacral pressure wound, glaucoma, labile HTN, Hx of pericardial effusion, R solitary kidney, Hx of retroperitoneal fibrosis, renal artery stenosis,
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
CKD, also developed UGIB
Impression:
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
Ventilatory dependent respiratory failure secondary to above
-Intubated for airway protection and secondary to macroglossia
Nosocomial/aspiration pneumonia with Serratia in sputum
Hypertensive emergency.
Tongue laceration and bleeding.
Acute kidney injury on CKD.
Persistent metabolic acidosis/lactic acidosis.
Provoked generalized seizure.
Acute bilateral upper extremity DVT
Abnormal LFT.
Thrombocytopenia
Conditions prior to admission:
Chronic kidney disease
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
Solitary kidney.
Chronic hydronephrosis.
CAD.
Essential hypertension
PAD.
Renal CA with history of left nephrectomy.
Plan:
New onset fever on 05/28/24
Bcx, Chest XR, replacing Stevenson to send Ucx and high risk for CAUTI
Plan to start Abx when aforementioned will be completed
VDRF.
Extubated on 05/21. Speech and swallow evaluation
Nosocomial/aspiration pneumonia
Sputum culture with Serratia.
Continue aspiration precautions.
Completed course of IV antibiotics
Myxedema coma.
TSH over 200, trending down to 72
Continue IV levothyroxine.
Corticosteroids tapered off
Hypertensive emergency.
Off Cardene drip
IV hydralazine/labetalol
Monitor BP with HD volume management
CAD by history. Echocardiogram 05/14 LVEF greater than 70%. Mild to moderate MR, mild to moderate AR, mild TR.
TORSTEN on CKD baseline persistent metabolic acidosis.
Azotemia.
Initiated on hemodialysis on 05/20
Continue dialysis as per nephrology
New onset/provoked generalized seizure.
Neurology consultation.
MRI of the brain shows possible acute to subacute infarction
Initiated on Keppra 500 mg daily
Laceration tonic with hemorrhage
Acute on chronic anemia secondary to blood loss with low with hemoglobin 6.7
Status post 2 units packed red blood cells
Transfuse to keep hemoglobin above 8
Continue IV PPI
Nutrition
NG tube in place.
Undergoing speech and swallow evaluation recommended n.p.o. given poor secretion management, macroglossia and risk for aspiration.
Bilateral upper extremity DVT
Started on Eliquis 05/22
Thrombocytopenia suspect consumptive
HIT panel negative.
Currently on Eliquis of heparin
Phimosis s/p incision and Stevenson placement by Urology
DVT prophylaxis�Eliquis
Full code
Anticipated Discharge: > 48 hours
Subjective/Interval History
-
Date of Service: May 29, 2024
Objective Data
-
Labs:
Laboratory Results
05/29/24
05:22
WBC 8.0
Hgb 8.4 L D
Hct 25.6 L
Plt Count 116 L
Sodium 137
Potassium 3.9
Chloride 99
Carbon Dioxide 28
BUN 52 H
Creatinine 2.7 H
Glucose 125 H
Calcium 7.8 L
Vital Signs:
Vital Signs
Temp Pulse Resp BP Pulse Ox
100.3 F 93 17 152/61 99
05/29/24 07:20 05/29/24 10:41 05/29/24 08:00 05/29/24 10:41 05/29/24 08:00
I&O
05/28/24 05/29/24 05/30/24
06:59 06:59 06:59
Intake Total 500 / 500 750 / 750
Output Total 210 / 210 110 / 110
Balance 290 / 290 640 / 640
[2024-05-29 12:04] LABS: Glucose - Point of Care 121 mg/dl (70-99)
[2024-05-29 12:30] LABS: ALT (SGPT) 44 U/L (0-50); AST (SGOT) 35 U/L (17-59); Albumin 2.7 g/dl (3.5-5.0); Alkaline Phosphatase 138 U/L (38-126); Direct Bilirubin 0.3 mg/dl (0.0-0.4); Total Bilirubin 0.3 mg/dl (0.2-1.3); Total Protein 5.2 g/dl (6.3-8.2)
[2024-05-29 13:31] LABS: Urine Albumin 3+ (Neg - Trace); Urine Bilirubin Negative (Negative); Urine Character Slightly Cloudy (Clear); Urine Color Yellow; Urine Glucose Negative (Negative); Urine Ketone Negative (Negative); Urine Leukocyte Trace (Negative); Urine Nitrite Negative (Negative); Urine Occult Blood 4+ (Negative); Urine Specific Gravity 1.015 (<1.030); Urine Urobilinogen Negative (Neg - 1+)
[2024-05-29 13:43] LABS: Urine Red Blood Cell >100 /HPF (0-2)
[2024-05-29 13:44] LABS: Urine Bacteria Few (Negative)
--- NOTE | 2024-05-29 14:36 | PHA.VAN.IN ---
Assessment
- Assessment
Renal Function: Patient has ESRD, on chronic Hemodialysis (pt started HD this hospitalization ( 05/19))
Hemodialysis Schedule: Other (next HD Friday 06/01)
Maximum Temperature: 100.6 - 05/28 19:36
Concomitant Antimicrobials: cefepime
AUC Dosing Plan
- Empiric Dosing
Initial / Loading Dose: 1250 mg x one dose today ( 25 mg/kg 2 days prior to HD)
Maintenance Regimen: dose by random level HD days
Plan
- Plan
Monitoring: random level next HD day Thursday 05/31
Pharmacokinetics Vancomycin I
- -
Patient Age: 78
Patient Sex: Male
Vancomycin Day #: 1
Indication: Other
Requesting Provider: Ben
Pertinent Antimicrobial Allergies:
cipro, iodinated contrast media, penicillins
Height / Weight:
Height 5 ft 3 in
Actual Weight 50.3 kg
Pertinent Past Medical History: BMI ~19; solitary kidney; CKD
- Vital Signs / Lab Results
Temp Pulse Resp BP Pulse Ox
99.8 F 93 17 152/61 99
05/29/24 11:27 05/29/24 10:41 05/29/24 08:00 05/29/24 10:41 05/29/24 08:00
Lab Results - Hematology
05/27/24 05/28/24 05/29/24
14:50 04:09 05:22
WBC 6.9 7.1 8.0
Lab Results - Chemistry
05/28/24 05/29/24
04:09 05:22
BUN 71 H 52 H
Creatinine 3.2 H 2.7 H
Estimated Creat Clear 13 16
Albumin 2.7 L
Lab Results - Urine
05/29/24
13:22
Urine Nitrite (Reflex) Negative
Leukocyte Esterase Rfl Trace A
Urine WBC (Reflex) 3-5
Urine Bacteria (Reflex) Few A
[2024-05-29] MEDS: MAXIPIME 1000 MG IV (14:42)
[2024-05-29] MEDS: STERILE WATER FOR INJECTION 10 ML IV (14:44)
[2024-05-29 15:29] LABS: COVID-19 Antigen Negative (Negative)
[2024-05-29] MEDS: VANCOCIN 275 MG IV (15:42)
[2024-05-29] MEDS: APRESOLINE TUBE ×2 (15:43→21:53)
--- NOTE | 2024-05-29 16:57 | PTCARENOTE ---
Pt with mild reddened area under his chin, pt is scratching around chest wall HD cath site, dressing reinforced. family at bedside is concerned that he is having an allergic reaction to the antibiotics started today, Dr. Contreras notified via tt,
orders to hold infusion and he will reassess tomorrow.
[2024-05-29 18:19] LABS: Glucose - Point of Care 114 mg/dl (70-99)
[2024-05-29] MEDS: ZYVOX 600 MG 300 IV (18:41)
[2024-05-29] MEDS: ELIQUIS 5 MG PO (21:13)
[2024-05-29] MEDS: XALATAN OPHTHALMIC SOLUTION 1 DROP BOTH EYES (21:52)
[2024-05-30] VITALS (12 sets, daily range): BP systolic 131–166; BP diastolic 64–117; BMI 19.8
[2024-05-30 00:23] LABS: Glucose - Point of Care 141 mg/dl (70-99)
[2024-05-30] MEDS: NOVOLOG FLEXPEN-LOW RESISTANCE SC ×5 (00:47→23:16)
--- NOTE | 2024-05-30 01:19 | PTCARENOTE ---
Pt received from previous RN. Pt awake and alert, Pt cont to have garbled speech, answers yes/no to questions, not engaging oriented conversation. NSR on monitor. 100% on RA. TF held at midnight for ABD ultrasound in Am. q6 glucose checks. CHG wipes
preformed.
[2024-05-30] MEDS: TYLENOL ORAL SOLUTION 650 MG TUBE ×5 (01:27→23:15)
[2024-05-30 06:05] LABS: Glucose - Point of Care 107 mg/dl (70-99)
[2024-05-30] MEDS: ZYVOX 600 MG 300 IV ×2 (06:09→19:06)
[2024-05-30 06:13] LABS: ALT (SGPT) 41 U/L (0-50); AST (SGOT) 34 U/L (17-59); Albumin 2.7 g/dl (3.5-5.0); Alkaline Phosphatase 105 U/L (38-126); Blood Urea Nitrogen 69 mg/dl (9-20); Calcium 7.7 mg/dl (8.4-10.2); Carbon Dioxide 24 mmol/L (22-30); Chloride 98 mmol/L (98-107); Estimated Creatinine Clearance 13 ml/min; Glucose 102 mg/dl (70-99); Potassium 4.1 mmol/L (3.5-5.1); Sodium 136 mmol/L (135-145); Total Bilirubin 0.5 mg/dl (0.2-1.3); Total Protein 5.4 g/dl (6.3-8.2); eGFR 18.16
[2024-05-30 06:33] LABS: % Basophils 0.2 % (0-2); % Eosinophils 3.6 % (0-6); % Immature Granulocytes 0.5 % (0-0.5); % Lymphocytes 5.4 % (20.5-51.1); % Monocytes 3.6 % (1.7-9.3); % Neutrophils 86.7 % (42.2-75.2); Absolute Eosinophils 0.3 10^3/uL (0-0.7); Absolute Lymphocytes 0.5 10^3/uL (1.2-3.4); Absolute Monocytes 0.3 10^3/uL (0.1-0.6); Absolute Neutrophils 7.6 10^3/uL (1.4-6.5); Hemoglobin 7.8 g/dL (13.0-18.0); Mean Corp Hgb Conc. 32.5 g/dL (33.0-37.0); Mean Corpuscular Hgb 28.3 pg (27.0-31.0); Mean Platelet Volume 12.1 fL (7.4-10.4); Nucleated Red Blood Cells % 0 % (-); Platelet Count 148 10^3/uL (130-400); Red Blood Cell Count 2.76 10^6/uL (4.70-6.10); Red Cell Dist. Width 18.7 % (11.5-14.5); White Blood Cell Count 8.8 10^3/uL (4.8-10.8)
--- NOTE | 2024-05-30 10:00 | W.PN.NEPH.PH ---
Today's Communication / Plan
-
Hd tomorrow
Assessment/Plan
-
Impression:
HTN emergency
Suspected seizures with tongue bite
Acute respiratory failure -VDRF
Elevated troponin, most likely non-ischemic cardiac injury
Hx of pericardial effusion s/p pericardiocentesis
Recent abdominal discomfort
TORSTEN on CKD stage 5 -cr mid 4s in Mar
mixed acid base disorder-HAGMA and elevated lactate
Alkalemia with primary rep alkalosis
Macroglossia-severe hypothyroidism
Transaminitis
PAD s/p b/l AKA and femoral stents
Renal artery stenosis of solitary kidney-deemed not a candidate for renal artery revasc with poor vascular
Hx of prostate CA
HLD
Glaucoma
Hx of GIB
CHronic anemia
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
Stage 1 sacral wound
Diverticulosis
Coronary artery disease
Renal cancer with history of left nephrectomy
He also with MGUS supposed to see heme out pt but never happened for BM biopsy
Plan:
HD Friday
likely cannot use UE edema as gauge of volume given DVT
follow hgb
continue TF
alicea per urology *dorsal slit)
-
-
Date of Service: May 30, 2024
CC / HPI / ROS
-
Chief Complaint:
TORTSEN with CKD4
History of Present Illness:
tolerated HD now MWF
oligoanuric with alicea
BP elevated
extubated 05/21
hgb down to 7.8
on eliquis for UE DVT
NGT/TF in place
Review of Systems:
no fever
more awake
Labs
-
Labs:
WBC 8.8 10^3/uL (4.8-10.8) 05/30/24 05:25
RBC 2.76 10^6/uL (4.70-6.10) L 05/30/24 05:25
Hgb 7.8 g/dL (13.0-18.0) L 05/30/24 05:25
Hct 24.0 % (39.0-52.0) L 05/30/24 05:25
Plt Count 148 10^3/uL (130-400) D 05/30/24 05:25
Sodium 136 mmol/L (135-145) 05/30/24 05:25
Potassium 4.1 mmol/L (3.5-5.1) 05/30/24 05:25
Chloride 98 mmol/L (98-107) 05/30/24 05:25
Carbon Dioxide 24 mmol/L (22-30) 05/30/24 05:25
BUN 69 mg/dl (9-20) H 05/30/24 05:25
Creatinine 3.3 mg/dL (0.7-1.3) H 05/30/24 05:25
eGFR 18.16 05/30/24 05:25
Glucose 102 mg/dl (70-99) H 05/30/24 05:25
Calcium 7.7 mg/dl (8.4-10.2) L 05/30/24 05:25
Fsm-D-Givnyojnawp Pept 6600 pg/ml 05/16/24 03:30
Albumin 2.7 g/dl (3.5-5.0) L 05/30/24 05:25
Physical Exam
-
Vital Signs:
Vital Signs
Temp Pulse Resp BP Pulse Ox
98.6 F 90 16 161/83 100
05/30/24 07:45 05/30/24 06:00 05/30/24 06:00 05/30/24 06:00 05/30/24 04:21
Cardiovascular:: Regular rate and rhythm
Respiratory:: Bilateral: Coarse
Lung Excursion:: Normal
Abdomen:: Nontender and Soft
Bowel Sounds:: Normal
Extremity Edema:: +2: Bilateral:
Alicea Catheter: Yes
[2024-05-30] MEDS: ALPHAGAN P 0.15% EYE DROPS 1 DROP BOTH EYES (10:07)
[2024-05-30] MEDS: APRESOLINE 50 MG TUBE ×3 (10:07→23:15)
[2024-05-30] MEDS: COREG 6.25 MG TUBE ×2 (10:08→20:35)
[2024-05-30] MEDS: KEPPRA 500 MG IV (10:08)
[2024-05-30] MEDS: ELIQUIS 5 MG PO ×2 (10:08→20:35)
[2024-05-30] MEDS: LEVOTHROID 50 MCG IV (10:08)
[2024-05-30] MEDS: MIRALAX TUBE (10:10)
[2024-05-30] MEDS: DESENEX/MITRAZOL/ZEASORB 1 APPLIC TOPICAL ×2 (10:10→19:06)
[2024-05-30] MEDS: TRUSOPT 2% OPHTHALMIC SOLUTION 1 DROP BOTH EYES ×2 (10:10→20:36)
--- NOTE | 2024-05-30 10:26 | W.PN.HOSP.TC ---
Today's Communication/Plan
-
Pending RUQ US reading
pending repeated Bcx
ID consult, meanwhile cont Cefepime/Flagyl/Zyvox
Assessment / Plan
Assessment / Plan
78yo M with PMHx of severe PAD s/p b/l AKA s/p fem-fem bypass, Hx of prostate CA, CAD s/p PCI, stage 1 sacral pressure wound, glaucoma, labile HTN, Hx of pericardial effusion, R solitary kidney, Hx of retroperitoneal fibrosis, renal artery stenosis,
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
CKD, also developed UGIB. Extubated on 05/21/24. Was found pneumonia with serratia and bacteremia with bacteroides. Prolonged dysphagia and poor cooperation so NG tube for feeding started
Impression:
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
Ventilatory dependent respiratory failure secondary to above
Intubated for airway protection and secondary to macroglossia
Nosocomial/aspiration pneumonia with Serratia in sputum
Bacteremia
Hypertensive emergency.
Tongue laceration and bleeding.
Acute kidney injury on CKD.
Persistent metabolic acidosis/lactic acidosis.
Provoked generalized seizure.
Acute bilateral upper extremity DVT
Abnormal LFT.
Thrombocytopenia
Conditions prior to admission:
Chronic kidney disease
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
Solitary kidney.
Chronic hydronephrosis.
CAD.
Essential hypertension
PAD.
Renal CA with history of left nephrectomy.
Plan:
Persistent fevers
Hx of bacteremia with Bacteroides species on admission
Bcx to be repeated (unfortunately very hard stick, so got delayed)
Chest XR showed resolution of pneumonia, Stevenson replaced on 05/29/24, new UA not concerning for UTI
Cefepime/Flagyl/Zyvox (had reaction with rash during Vanco infusion)
ID consult
cannot r/o fever 2/2 UE DVT
Elevated alk.phos
US RUQ
VDRF.
Extubated on 05/21. Speech and swallow evaluation
Nosocomial/aspiration pneumonia
Sputum culture with Serratia.
Continue aspiration precautions.
Completed course of IV antibiotics
Myxedema coma.
TSH over 200, trending down to 72
Continue IV levothyroxine.
Corticosteroids tapered off
Hypertensive emergency.
Off Cardene drip
IV hydralazine/labetalol
Monitor BP with HD volume management
CAD by history. Echocardiogram 05/14 LVEF greater than 70%. Mild to moderate MR, mild to moderate AR, mild TR.
TORSTEN on CKD baseline persistent metabolic acidosis.
Azotemia.
Initiated on hemodialysis on 05/20
Continue dialysis as per nephrology
New onset/provoked generalized seizure.
Neurology consultation.
MRI of the brain shows possible acute to subacute infarction
Initiated on Keppra 500 mg daily
Laceration tonic with hemorrhage
Acute on chronic anemia secondary to blood loss with low with hemoglobin 6.7
Status post 2 units packed red blood cells
Transfuse to keep hemoglobin above 8
Continue IV PPI
Nutrition
NG tube in place.
Undergoing speech and swallow evaluation recommended n.p.o. given poor secretion management, macroglossia and risk for aspiration.
Bilateral upper extremity DVT
Started on Eliquis 05/22
Thrombocytopenia suspect consumptive
HIT panel negative.
Currently on Eliquis of heparin
Phimosis s/p incision and Stevenson placement by Urology
DVT prophylaxis�Eliquis
Full code
Spent at least 59min reviewing chart, test results, communication with consultants and direct patient care
Anticipated Discharge: > 48 hours
Subjective/Interval History
-
Date of Service: May 30, 2024
Objective Data
-
Labs:
Laboratory Results
05/30/24
05:25
WBC 8.8
Hgb 7.8 L
Hct 24.0 L
Plt Count 148 D
Sodium 136
Potassium 4.1
Chloride 98
Carbon Dioxide 24
BUN 69 H
Creatinine 3.3 H
Glucose 102 H
Calcium 7.7 L
Total Bilirubin 0.5
AST 34
ALT 41
Alkaline Phosphatase 105
Vital Signs:
Vital Signs
Temp Pulse Resp BP Pulse Ox
98.6 F 81 16 141/76 100
05/30/24 07:45 05/30/24 10:07 05/30/24 06:00 05/30/24 10:07 05/30/24 04:21
I&O
05/29/24 05/30/24 05/31/24
06:59 06:59 06:59
Intake Total 750 / 750
Output Total 110 / 110 175 / 175
Balance 640 / 640 -175 / -175
Review of Systems
-
History Source: Patient
All other systems: Reviewed and negative
Physical Exam
-
General: No Apparent Distress
Respiratory: Crackles
GI: Soft, Nontender and Nondistended
Musculoskeletal: No Clubbing, Edema, Right Upper Extrem and Edema, Left Upper Extrem
Skin: Warm
Neuro: Awake and Alert
Psych: Calm
[2024-05-30] MEDS: MAXIPIME 5.65 MG IV (13:59)
[2024-05-30] MEDS: FLAGYL 500 MG 100 IV (13:59)
--- NOTE | 2024-05-30 14:05 | CON.ID ---
Consultation
-
Date/Time Consultation Requested: 05/30/24 10:21
Date/Time Consultation Performed: 05/30/24 14:06
Requesting Provider: Dr Contreras
Performing Provider: Dr Ardon
Reason for Consultation: bacteremia on admission
Chief Complaint / Past History
Chief Complaint
unresponsive tongue bites
History of Present Illness
Mr Boogie is an 78 year old male with history of bilateral AKA due to severe PAD, CKD 4 solitary right kidney (nephroectomy for RCC), sacral pressure wound presented here 05/14 (16 days ago) when family found him unresponsive and bleeding from his
mouth across his chest and across the room. Family reported abdominal pain the day prior and labile BPs. EMS arrived and he had a witnessed seizure. He was brought to the ER where systolic BP was over 220, intubated for airway protection and
found to have tongue lacerations, TSH 204. No known history of thyroid disease. Endocrinology saw patient, adrenal function intact, started on IV levothyroxine, and IV steroid. CT a/p without IV or oral contrast: probable cholelithiasis, 05/16
Serratia noted in the sputum - ceftriaxone added, then 05/18 switched to cefepime, same day the admission 05/14 blood culture read as positive with GPR 05/16 phimosis noted preventing alicea placement and patient underwent dorsal slit and alicea
placement, GI bleeding suspected with hgb drop and dark output from NGT, given 2 units of PRBCs, scopping deferred, he was maintained intubated due to traumatic macroglossia. 05/19 the blood culture was corrected from GPR to GNR in the anaerobic
bottle which was called to the floor. 05/20 MRI brain without contrast no metastatic disease but acute infarction and acute sinusitis noted, progressed to CKD5 and HD offered and started, he was weaned off of steroids around 05/20. 05/21
extubated, completed course of cefepime, and GNR was IDd as Bacteroides intermedius 05/21 bilateral upper extremity blood clots IDd 05/22 platelet drop noted after starting SQ heparin for DVT ppx, 4T score inermediate, HIT abx sent and was 0.1
negative, found to have bilateral upper extremity DVTs started on Eliquis, 05/23-05/25 had minimal leukocytosis in the 11s to 12 then 05/26 (4 days ago) developed intermittent low grade fevers to Tmax of 100.7, BPs have been stable, wbc 8.1, hgb
7.8, plt 91, L shift noted; he has remained without leukocytosis for the last 4 days though with persistent L shift, plt have steadily trended towards normal and today are 148, Cr runnin in the high twos to 3s, t bili 0.3, ast 35, alt 44, alk phos
138 now 105, UA 05/29 with gross hematuria and no significant pyuria, 05/29 CXR: atelectasis vs L basilar pneumonia, 05/30 abd US: Mild diffuse gallbladder wall thickening without evidence for gallbladder distention, small ascites; blood cultures
x2 in progress, no growth to date, covid ag neg, influenza pcr neg, started on vancomycin and cefepime, overnight with mild red area under the chin - assessed by hospitalist as possible ADR and vancomycin held, 05/30 vancomycin switched to
linezolid, metronidazole added by hospitalist, ID consulted for assistance with management.
Past History
Additional Past Medical History:
MGUS - outpatient BM biopsy is planned
severe PAD s/p b/l AKA s/p fem-fem bypass, Hx of prostate CA, CAD s/p PCI, stage 1 sacral pressure wound, glaucoma, labile HTN, Hx of pericardial effusion, R solitary kidney, Hx of retroperitoneal fibrosis, renal artery stenosis
Additional Past Surgical History:
see above
Allergy History:
ciprofloxacin Allergy (Verified 05/21/24 16:53)
Itching
Iodinated Contrast Media [Iodinated Contrast- Oral and IV Dye] Allergy (Verified 05/21/24 16:53)
chills;tremors
Penicillins Allergy (Verified 05/21/24 16:53)
liver damage, red hands and feet
phenytoin Allergy (Verified 05/21/24 16:53)
Rash
tetanus and diphtheria toxoids Allergy (Verified 05/21/24 16:53)
Swelling, Pain at site
Medications Reviewed: Yes
Social History
Tobacco: Non-Smoker
Alcohol: None
Drug: None
Family History
Family History: Not Pertinent
Review of Systems
Review of Systems
General: Fever and Chills
All systems: All other systems were reviewed and were negative
Vital Signs
Temp Pulse Resp BP Pulse Ox
98.1 F 94 17 140/70 100
05/30/24 11:35 05/30/24 12:37 05/30/24 12:37 05/30/24 12:37 05/30/24 12:37
Physical Exam
Physical Exam
Constitutional: No Acute Distress
Head: Other (no sinus tenderness, NGT is in place)
Cardiovascular: Regular Rate and S1/S2; Negative Murmur or Rub
Pulmonary: Clear and Symmetric; Negative Wheezes, Rales or Rhonchi
Gastrointestinal: Soft, Non Tender, Non Distended and Normal Bowel Sounds
Extremities: Other (bilateral AKAs; upper extremity swelling with known venous thromboemboli; AKA surgical sites fully healed)
Skin: Warm and Dry; Negative Rash or Jaundice
Neurological: Awake
Lab / Diagnostic Study Results
05/30/24 05:25
05/30/24 05:25
Abs Immat Gran (auto) 0.0 10^3/uL (0-0.05) 05/30/24 05:25
Absolute Neuts (auto) 7.6 10^3/uL (1.4-6.5) H 05/30/24 05:25
Absolute Lymphs (auto) 0.5 10^3/uL (1.2-3.4) L 05/30/24 05:25
Absolute Monos (auto) 0.3 10^3/uL (0.1-0.6) 05/30/24 05:25
Absolute Basos (auto) 0.0 10^3/uL (0-0.2) 05/30/24 05:25
Immature Gran % 0.5 % (0-0.5) 05/30/24 05:25
Neutrophils % 86.7 % (42.2-75.2) H 05/30/24 05:25
Lymphocytes % 5.4 % (20.5-51.1) L 05/30/24 05:25
Monocytes % 3.6 % (1.7-9.3) 05/30/24 05:25
Eosinophils % 3.6 % (0-6) 05/30/24 05:25
Basophils % 0.2 % (0-2) 05/30/24 05:25
PT 17.8 Sec (11.4-14.6) H 05/14/24 09:21
INR 1.48 05/14/24 09:21
Lactic Acid Cancelled 05/14/24 22:45
Ur Squamous Epith Cells 3-5 /LPF (Few) 05/14/24 13:12
Microbiology Results
Micro:
05/30/24 12:27 Blood Culture - Pending
Blood/Venous
05/30/24 10:43 Blood Culture - Pending
Blood/Venous
05/29/24 14:55 Influenza Types A & B (NATE) - Final
Nasal Swab Negative for Influenza A & B, NAAT
Negative results must be combined with clinical observations
and patient history.
Nucleic Acid Amplification test (NAAT)performed on the
[employer] platform.
05/14/24 11:12 Blood Culture - Final
Blood/Venous Bacteroides intermedius
Gram Stain - Final
05/14/24 09:21 Blood Culture - Final
Blood/Venous No Growth - Final Report
05/14/24 13:12 Respiratory Culture - Final
Tracheal Aspirate Serratia marcescens
Gram Stain - Final
05/14/24 11:34 MRSA Screen - Final
Nose No Methicillin Resistant Staphylococcus aureus isolated.
05/14/24 13:12 Legionella Urinary Antigen - Final
Urine Negative for Legionella pneumophila Serogroup 1 antigen.
A negative result does not rule out the possiblity of
Legionella infection due to other serogroups or species of
Legionella. Clinical correlation is recommended.
Streptococcus pneumoniae Antigen (M - Final
Negative for Streptococcus pneumoniae antigen.
A negative result does not exclude infection with
Streptococcus pneumoniae. Clinical correlation is
recommended.
05/14/24 09:25 Influenza Types A & B (NATE) - Final
Nasal Swab Negative for Influenza A & B, NAAT
Negative results must be combined with clinical observations
and patient history.
Nucleic Acid Amplification test (NAAT)performed on the
[employer] platform.
Assessment / Plan
Fever
Bilteral Upper Extremity DVTs
Recent Aspiration Pneumonia due to Serratia
Recent Bacteroides (anaerobic) bacteremia 05/14
Reported allergies to penicillin and ciprofloxacin
- blood cultures x2 from today in progress
- UA without pyuria
- influenza and covid ags are negative
- CXR most likely with atelectasis vs resolving pneumonia
- sputum culture if able to obtain one
- no sinus tenderness on physical exam - doubt significant acute sinusitis
- lines functional without erythema or tenderness
- MRSA PCR on the nose, as of 05/14 patient was not colonized with MRSA - if negative will stop linezolid
- doubt patient allergic to vancomycin and would be comfortable using it in the future
- if progressive erythema under the chin would pursue imaging given recent tongue laceration
- many possible sources of previous Bacteroides bacteremia including aspiration, transient bacteremia from tongue laceration during seizure, pressure wound, less likely acute sinusitis or GI
- start meropenem, stop cefepime/metronidazole - prefer to avoid cefepime given neurotoxicity, recent seizure and TORSTEN
- if MRSA PCR negative stop linezolid
- blood clots also a possible cause of fever
AW
[2024-05-30 18:10] LABS: Glucose - Point of Care 101 mg/dl (70-99)
--- NOTE | 2024-05-30 19:16 | PTCARENOTE ---
Patient AAOxself. Able to give simple answers. No complaints. VSS. BCx2 sent. Oliguric. Dobhoff to goal and tolerating. Rectal trumpet placed for 2 liquid BMs that were harming the excoriated scrotal and sacral wounds as well as the penis incision.
Male incontinence pad placed around penis to protect the incision. Continuing to closely monitor.
[2024-05-30] MEDS: XALATAN OPHTHALMIC SOLUTION 1 DROP BOTH EYES (23:16)
[2024-05-30 23:20] LABS: Glucose - Point of Care 141 mg/dl (70-99)
[2024-05-30] MEDS: FLAGYL 500 MG PO (23:20)
[2024-05-30 23:57] LABS: Glucose - Point of Care 126 mg/dl (70-99)
[2024-05-31] VITALS (15 sets, daily range): BP systolic 121–159; BP diastolic 56–80; PULSE 88–89; O2SAT 99; BMI 19.9
[2024-05-31] MEDS: TYLENOL ORAL SOLUTION 650 MG TUBE ×4 (05:05→23:27)
[2024-05-31] MEDS: ZYVOX 600 MG 300 IV (05:05)
--- NOTE | 2024-05-31 05:30 | PTCARENOTE ---
Pt slept well overnight. Pt requiring PRN deep suction due to secretions pulling in back of throat. Frequent oral care provided, mouth bleeding at times with oral care. Pt able to answer yes no appropriately, but mostly drowsy, lethargic, and non
conversant. Follows commands. Pt scheduled for HD today, AM labs to be obtained by HD RN. Rectal trumpet in place draining liquid brown stool. Geri care provided. Vital signs stable overnight. Pt denies any complaints. Will continue to monitor.
[2024-05-31] MEDS: NOVOLOG FLEXPEN-LOW RESISTANCE SC ×4 (05:40→23:27)
[2024-05-31 05:46] LABS: Glucose - Point of Care 146 mg/dl (70-99)
[2024-05-31] MEDS: APRESOLINE TUBE ×2 (09:02→17:04)
[2024-05-31] MEDS: LEVOTHROID 50 MCG IV (09:02)
[2024-05-31] MEDS: COREG 6.25 MG TUBE ×2 (09:02→20:05)
[2024-05-31] MEDS: ELIQUIS 5 MG PO ×2 (09:02→20:05)
[2024-05-31] MEDS: ALPHAGAN P 0.15% EYE DROPS 1 DROP BOTH EYES (09:03)
[2024-05-31] MEDS: TRUSOPT 2% OPHTHALMIC SOLUTION 1 DROP BOTH EYES ×2 (09:03→20:06)
[2024-05-31] MEDS: MIRALAX TUBE (09:03)
[2024-05-31] MEDS: KEPPRA 500 MG IV (09:03)
[2024-05-31] MEDS: DESENEX/MITRAZOL/ZEASORB 1 APPLIC TOPICAL ×2 (09:04→20:05)
--- NOTE | 2024-05-31 09:27 | W.PN.ID1 ---
Date of Service
Date of Service: May 31, 2024
Today's Communication
c/w meropenem
stop linezolid
Assessment / Plan
Fever
Bilteral Upper Extremity DVTs
Recent Aspiration Pneumonia due to Serratia
Recent Bacteroides (anaerobic) bacteremia 05/14
Reported allergies to penicillin and ciprofloxacin
- blood cultures x2 no growth to date
- CXR most likely with atelectasis vs resolving pneumonia
- sputum culture if able to obtain one
- MRSA PCR on the nose negative- stop linezolid
- doubt patient allergic to vancomycin and would be comfortable using it in the future
- many possible sources of previous Bacteroides bacteremia including aspiration, transient bacteremia from tongue laceration during seizure, pressure wound, less likely acute sinusitis or GI
- c/w meropenem - prefer to avoid cefepime given neurotoxicity, recent seizure and TORSTEN
- blood clots also a possible cause of fever
AW
Chief Complaint
-: Fever
Subjective / Review of Systems
no further fevers
BP stable
AM labs pending
no redness or definite swelling under the chin
Vital Signs / Physical Exam
Vital Signs
Vital Signs
Temp Pulse Resp BP Pulse Ox
99.3 F 92 16 124/60 100
05/31/24 07:30 05/31/24 09:02 05/31/24 04:00 05/31/24 09:02 05/31/24 04:00
Physical Exam
Constitutional: No Acute Distress and Chronically Ill
Head: Other (no redness or definite swelling under the chin )
Cardiovascular: Regular Rate and S1/S2; Negative Murmur or Rub
Pulmonary: Clear and Symmetric; Negative Wheezes or Rales
Gastrointestinal: Soft, Non Tender, Non Distended and Normal Bowel Sounds
Skin: Warm and Dry; Negative Rash or Jaundice
Objective Data
Lab Data
PT 17.8 Sec (11.4-14.6) H 05/14/24 09:21
INR 1.48 05/14/24 09:21
APTT 37.6 Sec (23.4-35.0) H 05/14/24 09:21
Estimated Creat Clear 13 ml/min 05/30/24 05:25
Lactic Acid Cancelled 05/14/24 22:45
Total Bilirubin 0.5 mg/dl (0.2-1.3) 05/30/24 05:25
AST 34 U/L (17-59) 05/30/24 05:25
ALT 41 U/L (0-50) 05/30/24 05:25
Alkaline Phosphatase 105 U/L (38-126) 05/30/24 05:25
Most recent labs reviewed.
Micro Results:
05/30/24 23:50 Respiratory Culture - Pending
Sputum Gram Stain - Pending
05/30/24 16:06 Nasal Screen MRSA (PCR) - Pending
Nose
05/30/24 12:27 Blood Culture - Pending
Blood/Venous
05/30/24 10:43 Blood Culture - Pending
Blood/Venous
05/29/24 14:55 Influenza Types A & B (NATE) - Final
Nasal Swab Negative for Influenza A & B, NAAT
Negative results must be combined with clinical observations
and patient history.
Nucleic Acid Amplification test (NAAT)performed on the
[employer] platform.
05/14/24 11:12 Blood Culture - Final
Blood/Venous Bacteroides intermedius
Gram Stain - Final
05/14/24 09:21 Blood Culture - Final
Blood/Venous No Growth - Final Report
05/14/24 13:12 Respiratory Culture - Final
Tracheal Aspirate Serratia marcescens
Gram Stain - Final
05/14/24 11:34 MRSA Screen - Final
Nose No Methicillin Resistant Staphylococcus aureus isolated.
05/14/24 13:12 Legionella Urinary Antigen - Final
Urine Negative for Legionella pneumophila Serogroup 1 antigen.
A negative result does not rule out the possiblity of
Legionella infection due to other serogroups or species of
Legionella. Clinical correlation is recommended.
Streptococcus pneumoniae Antigen (M - Final
Negative for Streptococcus pneumoniae antigen.
A negative result does not exclude infection with
Streptococcus pneumoniae. Clinical correlation is
recommended.
05/14/24 09:25 Influenza Types A & B (NATE) - Final
Nasal Swab Negative for Influenza A & B, NAAT
Negative results must be combined with clinical observations
and patient history.
Nucleic Acid Amplification test (NAAT)performed on the
[employer] platform.
--- NOTE | 2024-05-31 12:08 | PTCARENOTE ---
Patient oriented to self, able to answer simple questions. VSS. Suctioning mouth PRN, frequent mouth care. HD delayed until tomorrow morning. Will be NPO at 0000 for HIDA scan tomorrow. Patient due for video swallow. Rectal trumpet and alicea CDI.
Tube feeds tolerated at goal. Continuing to closely monitor patient.
--- NOTE | 2024-05-31 12:09 | W.PN.HOSP.TC ---
Today's Communication/Plan
-
Aspiration precautions
Tube feeding.
Empiric antibiotics pending cultures
HD as per schedule
Assessment / Plan
Assessment / Plan
78yo M with PMHx of severe PAD s/p b/l AKA s/p fem-fem bypass, Hx of prostate CA, CAD s/p PCI, stage 1 sacral pressure wound, glaucoma, labile HTN, Hx of pericardial effusion, R solitary kidney, Hx of retroperitoneal fibrosis, renal artery stenosis,
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
CKD, also developed UGIB. Extubated on 05/21/24. Was found pneumonia with serratia and bacteremia with bacteroides. Prolonged dysphagia and poor cooperation so NG tube for feeding started
Impression:
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
Ventilatory dependent respiratory failure secondary to above
Intubated for airway protection and secondary to macroglossia
Nosocomial/aspiration pneumonia with Serratia in sputum
Bacteremia
Hypertensive emergency.
Tongue laceration and bleeding.
Acute kidney injury on CKD.
Persistent metabolic acidosis/lactic acidosis.
Provoked generalized seizure.
Acute bilateral upper extremity DVT
Abnormal LFT.
Thrombocytopenia
Conditions prior to admission:
Chronic kidney disease
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
Solitary kidney.
Chronic hydronephrosis.
CAD.
Essential hypertension
PAD.
Renal CA with history of left nephrectomy.
Plan:
Persistent fevers
Hx of bacteremia with Bacteroides species on admission
Bcx to be repeated (unfortunately very hard stick, so got delayed)
Chest XR showed resolution of pneumonia, Stevenson replaced on 05/29/24, new UA not concerning for UTI
Has bilateral upper extremity DVT.
Chest x-ray with bilateral atelectasis, likely resolving pneumonia.
Abdominal ultrasound with gallbladder wall thickening, although patient with no abdominal pain and normal LFT.
Blood cultures pending
Continue antibiotics consolidated to meropenem pending blood cultures
Low clinical suspicion for acute cholecystitis. HIDA scan has been ordered.
Elevated alk.phos
US RUQ
VDRF.
Extubated on 05/21. Speech and swallow evaluation
Nosocomial/aspiration pneumonia
Sputum culture with Serratia.
Continue aspiration precautions.
Completed course of IV antibiotics
Myxedema coma.
TSH over 200, trending down to 72
Continue IV levothyroxine.
Corticosteroids tapered off
Hypertensive emergency.
Off Cardene drip
IV hydralazine/labetalol
Monitor BP with HD volume management
CAD by history. Echocardiogram 05/14 LVEF greater than 70%. Mild to moderate MR, mild to moderate AR, mild TR.
TORSTEN on CKD baseline persistent metabolic acidosis.
Azotemia.
Initiated on hemodialysis on 05/20
Continue dialysis as per nephrology
New onset/provoked generalized seizure.
Neurology consultation.
MRI of the brain shows possible acute to subacute infarction
Initiated on Keppra 500 mg daily
Laceration tonic with hemorrhage
Acute on chronic anemia secondary to blood loss with low with hemoglobin 6.7
Status post 2 units packed red blood cells
Transfuse to keep hemoglobin above 8
Continue IV PPI
Nutrition
NG tube in place.
Undergoing speech and swallow evaluation recommended n.p.o. given poor secretion management, macroglossia and risk for aspiration.
Bilateral upper extremity DVT
Started on Eliquis 05/22
Thrombocytopenia suspect consumptive
HIT panel negative.
Currently on Eliquis of heparin
Phimosis s/p incision and Stevenson placement by Urology
DVT prophylaxis�Eliquis
Full code
Spent at least 59min reviewing chart, test results, communication with consultants and direct patient care
Anticipated Discharge: > 48 hours
Subjective/Interval History
-
Date of Service: May 31, 2024
Objective Data
-
Vital Signs:
Vital Signs
Temp Pulse Resp BP Pulse Ox
99.3 F 89 18 133/66 100
05/31/24 07:30 05/31/24 10:00 05/31/24 10:00 05/31/24 10:00 05/31/24 10:00
I&O
05/30/24 05/31/24 06/01/24
06:59 06:59 06:59
Intake Total 720 / 720
Output Total 175 / 175 150 / 150
Balance -175 / -175 570 / 570
Physical Exam
-
General: No Apparent Distress
Respiratory: Crackles
GI: Soft, Nontender and Nondistended
Musculoskeletal: No Clubbing, Edema, Right Upper Extrem and Edema, Left Upper Extrem
Skin: Warm
Neuro: Awake and Alert
Psych: Calm
[2024-05-31 12:18] LABS: Glucose - Point of Care 110 mg/dl (70-99)
[2024-05-31] MEDS: MERREM 500 MG IV (12:20)
[2024-05-31] MEDS: STERILE WATER FOR INJECTION 10 ML IV (12:20)
[2024-05-31 12:51] LABS: % Basophils 0.1 % (0-2); % Eosinophils 4.3 % (0-6); % Immature Granulocytes 0.5 % (0-0.5); % Lymphocytes 3.3 % (20.5-51.1); % Monocytes 3.2 % (1.7-9.3); % Neutrophils 88.6 % (42.2-75.2); Absolute Eosinophils 0.4 10^3/uL (0-0.7); Absolute Lymphocytes 0.3 10^3/uL (1.2-3.4); Absolute Monocytes 0.3 10^3/uL (0.1-0.6); Absolute Neutrophils 7.1 10^3/uL (1.4-6.5); Hematocrit 23.5 % (39.0-52.0); Hemoglobin 7.7 g/dL (13.0-18.0); Mean Corp Hgb Conc. 32.8 g/dL (33.0-37.0); Mean Corpuscular Hgb 28.7 pg (27.0-31.0); Mean Corpuscular Volume 87.7 fL (80.0-94.0); Mean Platelet Volume 11.5 fL (7.4-10.4); Nucleated Red Blood Cells % 0 % (-); Platelet Count 153 10^3/uL (130-400); Red Blood Cell Count 2.68 10^6/uL (4.70-6.10); Red Cell Dist. Width 18.9 % (11.5-14.5); White Blood Cell Count 8.1 10^3/uL (4.8-10.8)
--- NOTE | 2024-05-31 14:13 | W.PN.NEPH.PH ---
Today's Communication / Plan
-
HD tomorrow
Assessment/Plan
-
Impression:
HTN emergency
Suspected seizures with tongue bite
Acute respiratory failure -VDRF
Elevated troponin, most likely non-ischemic cardiac injury
Hx of pericardial effusion s/p pericardiocentesis
Recent abdominal discomfort
TORSTEN on CKD stage 5 -cr mid 4s in Mar
mixed acid base disorder-HAGMA and elevated lactate
Alkalemia with primary rep alkalosis
Macroglossia-severe hypothyroidism
Transaminitis
PAD s/p b/l AKA and femoral stents
Renal artery stenosis of solitary kidney-deemed not a candidate for renal artery revasc with poor vascular
Hx of prostate CA
HLD
Glaucoma
Hx of GIB
CHronic anemia
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
Stage 1 sacral wound
Diverticulosis
Coronary artery disease
Renal cancer with history of left nephrectomy
He also with MGUS supposed to see heme out pt but never happened for BM biopsy
Plan:
HD changed to tomorrow due to busy HD schedule and short staff
likely cannot use UE edema as gauge of volume given DVT
follow hgb
continue TF with out FWF
alicea per urology *dorsal slit)
-
-
Date of Service: May 31, 2024
CC / HPI / ROS
-
Chief Complaint:
TORSTEN with CKD4
History of Present Illness:
tolerated HD now MWF
oligoanuric with alicea
BP stable
extubated 05/21
hgb down to 7.7
on eliquis for UE DVT
NGT/TF in place
Review of Systems:
no fever
more awake, answered sometimes but confused
not on O2
Labs
-
Labs:
WBC 8.1 10^3/uL (4.8-10.8) 05/31/24 12:34
RBC 2.68 10^6/uL (4.70-6.10) L 05/31/24 12:34
Hgb 7.7 g/dL (13.0-18.0) L 05/31/24 12:34
Hct 23.5 % (39.0-52.0) L 05/31/24 12:34
Plt Count 153 10^3/uL (130-400) 05/31/24 12:34
eGFR 18.16 05/30/24 05:25
Xvn-L-Oljvfzdkipa Pept 6600 pg/ml 05/16/24 03:30
Physical Exam
-
Vital Signs:
Vital Signs
Temp Pulse Resp BP Pulse Ox
99.3 F 85 14 121/66 100
05/31/24 07:30 05/31/24 12:00 05/31/24 12:00 05/31/24 12:00 05/31/24 12:00
Cardiovascular:: Regular rate and rhythm
Respiratory:: Bilateral: CTA (decreased)
Lung Excursion:: Normal
Abdomen:: Nontender and Soft
Extremity Edema:: +2: Bilateral:
Alicea Catheter: Yes
[2024-05-31 14:27] LABS: ALT (SGPT) 33 U/L (0-50); AST (SGOT) 28 U/L (17-59); Albumin 2.6 g/dl (3.5-5.0); Alkaline Phosphatase 127 U/L (38-126); Blood Urea Nitrogen 86 mg/dl (9-20); Calcium 7.6 mg/dl (8.4-10.2); Carbon Dioxide 21 mmol/L (22-30); Chloride 95 mmol/L (98-107); Estimated Creatinine Clearance 11 ml/min; Glucose 135 mg/dl (70-99); Potassium 4.2 mmol/L (3.5-5.1); Sodium 134 mmol/L (135-145); Total Bilirubin 0.4 mg/dl (0.2-1.3); Total Protein 5.2 g/dl (6.3-8.2); eGFR 14.42
--- NOTE | 2024-05-31 16:46 | CM ---
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 Room air.
Plan HIDA scan tomorrow. Receiving IV Keppra, IV Abx. ST trial- keep NPO. Dobhoff- Tube feeding. Stevenson. PT/OT recommends skilled rehab. Per nurse assessment; confused.
As per prior CM notes, arrangements in place for [facility] with [facility] while there, and [facility] outpatient HD for possible d/c home thereafter.
CM continuing to follow enteral feedings.
Plan [facility] for short term rehab/possible LTC, [facility] after [facility].
[2024-05-31 17:17] LABS: Glucose - Point of Care 125 mg/dl (70-99)
[2024-05-31] MEDS: APRESOLINE 50 MG TUBE (20:05)
[2024-05-31] MEDS: XALATAN OPHTHALMIC SOLUTION 1 DROP BOTH EYES (20:06)
[2024-05-31 23:38] LABS: Glucose - Point of Care 110 mg/dl (70-99)
[2024-06-01] VITALS (32 sets, daily range): BP systolic 99–166; BP diastolic 52–93; BMI 20.4
[2024-06-01 05:08] LABS: % Basophils 0.2 % (0-2); % Eosinophils 5.1 % (0-6); % Immature Granulocytes 0.7 % (0-0.5); % Monocytes 3.9 % (1.7-9.3); % Neutrophils 86.1 % (42.2-75.2); Absolute Eosinophils 0.5 10^3/uL (0-0.7); Absolute Immature Granulocytes 0.1 10^3/uL (0-0.05); Absolute Lymphocytes 0.4 10^3/uL (1.2-3.4); Absolute Monocytes 0.3 10^3/uL (0.1-0.6); Absolute Neutrophils 7.6 10^3/uL (1.4-6.5); Hematocrit 23.4 % (39.0-52.0); Hemoglobin 7.6 g/dL (13.0-18.0); Mean Corp Hgb Conc. 32.5 g/dL (33.0-37.0); Mean Corpuscular Volume 86.3 fL (80.0-94.0); Mean Platelet Volume 11.2 fL (7.4-10.4); Nucleated Red Blood Cells % 0 % (-); Platelet Count 176 10^3/uL (130-400); Red Blood Cell Count 2.71 10^6/uL (4.70-6.10); Red Cell Dist. Width 19.2 % (11.5-14.5); White Blood Cell Count 8.8 10^3/uL (4.8-10.8)
[2024-06-01] MEDS: TYLENOL ORAL SOLUTION 650 MG TUBE ×4 (05:35→23:51)
[2024-06-01] MEDS: NOVOLOG FLEXPEN-LOW RESISTANCE SC ×4 (05:35→23:48)
[2024-06-01 05:53] LABS: Glucose - Point of Care 98 mg/dl (70-99)
--- NOTE | 2024-06-01 06:07 | PTCARENOTE ---
No acute events overnight. TF placed on hold at midnight for upcoming procedures today. Afebrile.
--- NOTE | 2024-06-01 06:38 | VATNOTE ---
5FR DL R PICC DRSG WITH SEROUS DRAINAGE AND BLOODY BIOPATCH. RD PER PROTOCOL. BOTH LUMENS FLUSH WELL WITH A GOOD BR.
[2024-06-01] MEDS: ALPHAGAN P 0.15% EYE DROPS 1 DROP BOTH EYES (08:08)
[2024-06-01] MEDS: TRUSOPT 2% OPHTHALMIC SOLUTION 1 DROP BOTH EYES ×2 (08:08→20:06)
[2024-06-01] MEDS: MIRALAX TUBE (08:09)
[2024-06-01] MEDS: APRESOLINE TUBE (08:09)
[2024-06-01] MEDS: ELIQUIS 5 MG PO ×2 (08:09→20:05)
[2024-06-01] MEDS: COREG 6.25 MG TUBE ×2 (08:09→20:05)
[2024-06-01] MEDS: DESENEX/MITRAZOL/ZEASORB 1 APPLIC TOPICAL ×2 (08:10→20:06)
[2024-06-01] MEDS: KEPPRA 500 MG IV (08:10)
[2024-06-01] MEDS: LEVOTHROID 50 MCG IV (08:13)
--- NOTE | 2024-06-01 09:16 | W.PN.ID1 ---
Date of Service
Date of Service: June 01, 2024
Today's Communication
c/w meropenem pending ID of the isolates
Assessment / Plan
Fever
Hospital Acquired Pneumonia
Recent Pneumonia due to Serratia
Bilteral Upper Extremity DVTs
Recent Bacteroides (anaerobic) bacteremia 05/14
Reported allergies to penicillin and ciprofloxacin
TORSTEN on CKD now on HD
- blood cultures x2 no growth to date
- CXR most likely with atelectasis vs resolving pneumonia
- sputum culture - 3 morphotypes of GNR
- suspect ongoing aspiration - currently with NGT for tube feeds
- will follow up HIDA
- many possible sources of previous Bacteroides bacteremia including aspiration, transient bacteremia from tongue laceration during seizure, pressure wound, less likely acute sinusitis or GI
- c/w meropenem
AW
Chief Complaint
-: Fever
Subjective / Review of Systems
fever resolved
bp stable
for HIDA per IM service
Vital Signs / Physical Exam
Vital Signs
Vital Signs
Temp Pulse Resp BP Pulse Ox
96.9 F L 86 13 132/81 98
06/01/24 07:06 06/01/24 08:00 06/01/24 08:00 06/01/24 08:09 06/01/24 08:40
Physical Exam
Constitutional: No Acute Distress and Chronically Ill
Cardiovascular: Regular Rate and S1/S2; Negative Murmur or Rub
Pulmonary: Clear and Symmetric; Negative Wheezes or Rales
Gastrointestinal: Soft, Non Tender, Non Distended and Normal Bowel Sounds
Skin: Warm and Dry; Negative Rash or Jaundice
Lines: HD Cath and Other (NGT)
Objective Data
Lab Data
Lab Results
06/01/24 04:39
05/31/24 12:34
PT 17.8 Sec (11.4-14.6) H 05/14/24 09:21
INR 1.48 05/14/24 09:21
APTT 37.6 Sec (23.4-35.0) H 05/14/24 09:21
Estimated Creat Clear 11 ml/min 05/31/24 12:34
Lactic Acid Cancelled 05/14/24 22:45
Total Bilirubin 0.4 mg/dl (0.2-1.3) 05/31/24 12:34
AST 28 U/L (17-59) 05/31/24 12:34
ALT 33 U/L (0-50) 05/31/24 12:34
Alkaline Phosphatase 127 U/L (38-126) H 05/31/24 12:34
Most recent labs reviewed.
Micro Results:
05/30/24 23:50 Respiratory Culture - Pending
Sputum Gram Stain - Preliminary
05/30/24 12:27 Blood Culture - Preliminary
Blood/Venous No Growth in 24 hours- Final report to follow
05/30/24 10:43 Blood Culture - Preliminary
Blood/Venous No Growth in 24 hours- Final report to follow
05/30/24 16:06 Nasal Screen MRSA (PCR) - Final
Nose MRSA not detected - performed by PCR methodology.
05/29/24 14:55 Influenza Types A & B (NATE) - Final
Nasal Swab Negative for Influenza A & B, NAAT
Negative results must be combined with clinical observations
and patient history.
Nucleic Acid Amplification test (NAAT)performed on the
[employer] NOW platform.
05/14/24 11:12 Blood Culture - Final
Blood/Venous Bacteroides intermedius
Gram Stain - Final
05/14/24 09:21 Blood Culture - Final
Blood/Venous No Growth - Final Report
05/14/24 13:12 Respiratory Culture - Final
Tracheal Aspirate Serratia marcescens
Gram Stain - Final
05/14/24 11:34 MRSA Screen - Final
Nose No Methicillin Resistant Staphylococcus aureus isolated.
05/14/24 13:12 Legionella Urinary Antigen - Final
Urine Negative for Legionella pneumophila Serogroup 1 antigen.
A negative result does not rule out the possiblity of
Legionella infection due to other serogroups or species of
Legionella. Clinical correlation is recommended.
Streptococcus pneumoniae Antigen (M - Final
Negative for Streptococcus pneumoniae antigen.
A negative result does not exclude infection with
Streptococcus pneumoniae. Clinical correlation is
recommended.
05/14/24 09:25 Influenza Types A & B (NATE) - Final
Nasal Swab Negative for Influenza A & B, NAAT
Negative results must be combined with clinical observations
and patient history.
Nucleic Acid Amplification test (NAAT)performed on the
[employer] platform.
Care Review
Plan reviewed with: Physician (Dr Holm - possible peg)
--- NOTE | 2024-06-01 10:50 | CM ---
Pt sleeping on CM rounds.
Pt for HIDA scan today.
Continues with tube feedings.On aspiration precautions.
IV antibiotics maintained.
New HD MWF.
DC plan as per prior CM pt will be dc to SNf with HD to [facility]
[2024-06-01 13:09] LABS: Glucose - Point of Care 84 mg/dl (70-99)
[2024-06-01] MEDS: FLEXBUMIN 25% FOR HEMODIALYSIS 12.5 GRAMS IV (14:34)
--- NOTE | 2024-06-01 14:36 | PTCARENOTE ---
Pt presents as assessed. NPO for HIDA scan, sent via stretcher. Upon return, order received to resume TF at goal rate of 35ml/hr with no water flush. Mouth care completed and aspiration precautions maintained. Rectal trumpet draining liquid stool.
Stevenson draining yellow urine. Pt receiving HD at this time. Q2T and bed alarm maintained.
[2024-06-01] MEDS: RETACRIT 10000 UNITS IV (14:37)
--- NOTE | 2024-06-01 15:13 | W.PN.HOSP.TC ---
Today's Communication/Plan
-
HD as per schedule.
Remains with fluctuant mental status.
Remains severe aspiration risk given above as well as poor secretion handling
Intermittent fever with sputum culture showing gram-negative bacteria confirms aspiration.
Asking family to come in for goals of care discussion
Assessment / Plan
Assessment / Plan
78yo M with PMHx of severe PAD s/p b/l AKA s/p fem-fem bypass, Hx of prostate CA, CAD s/p PCI, stage 1 sacral pressure wound, glaucoma, labile HTN, Hx of pericardial effusion, R solitary kidney, Hx of retroperitoneal fibrosis, renal artery stenosis,
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
CKD, also developed UGIB. Extubated on 05/21/24. Was found pneumonia with serratia and bacteremia with bacteroides. Prolonged dysphagia and poor cooperation so NG tube for feeding started
Impression:
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
Ventilatory dependent respiratory failure secondary to above
Intubated for airway protection and secondary to macroglossia
Nosocomial/aspiration pneumonia with Serratia in sputum
Bacteremia
Hypertensive emergency.
Tongue laceration and bleeding.
Acute kidney injury on CKD.
Persistent metabolic acidosis/lactic acidosis.
Provoked generalized seizure.
Acute bilateral upper extremity DVT
Abnormal LFT.
Thrombocytopenia
Conditions prior to admission:
Chronic kidney disease
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
Solitary kidney.
Chronic hydronephrosis.
CAD.
Essential hypertension
PAD.
Renal CA with history of left nephrectomy.
Plan:
Persistent fevers
Hx of bacteremia with Bacteroides species on admission
Bcx to be repeated (unfortunately very hard stick, so got delayed)
Chest XR showed resolution of pneumonia, Stevenson replaced on 05/29/24, new UA not concerning for UTI
Has bilateral upper extremity DVT.
Chest x-ray with bilateral atelectasis, likely resolving pneumonia.
Abdominal ultrasound with gallbladder wall thickening, although patient with no abdominal pain and normal LFT.
Blood cultures pending
Continue antibiotics consolidated to meropenem pending blood cultures
Low clinical suspicion for acute cholecystitis. HIDA scan has been ordered.
Elevated alk.phos
US RUQ
VDRF.
Extubated on 05/21. Speech and swallow evaluation
Nosocomial/aspiration pneumonia
Sputum culture with Serratia.
Continue aspiration precautions.
Completed course of IV antibiotics
Myxedema coma.
TSH over 200, trending down to 72
Continue IV levothyroxine.
Corticosteroids tapered off
Hypertensive emergency.
Off Cardene drip
IV hydralazine/labetalol
Monitor BP with HD volume management
CAD by history. Echocardiogram 05/14 LVEF greater than 70%. Mild to moderate MR, mild to moderate AR, mild TR.
TORSTEN on CKD baseline persistent metabolic acidosis.
Azotemia.
Initiated on hemodialysis on 05/20
Continue dialysis as per nephrology
New onset/provoked generalized seizure.
Neurology consultation.
MRI of the brain shows possible acute to subacute infarction
Initiated on Keppra 500 mg daily
Laceration tonic with hemorrhage
Acute on chronic anemia secondary to blood loss with low with hemoglobin 6.7
Status post 2 units packed red blood cells
Transfuse to keep hemoglobin above 8
Continue IV PPI
Nutrition
NG tube in place.
Undergoing speech and swallow evaluation recommended n.p.o. given poor secretion management, macroglossia and risk for aspiration.
Bilateral upper extremity DVT
Started on Eliquis 05/22
Thrombocytopenia suspect consumptive
HIT panel negative.
Currently on Eliquis of heparin
Phimosis s/p incision and Stevenson placement by Urology
DVT prophylaxis�Eliquis
Full code
Spent at least 59min reviewing chart, test results, communication with consultants and direct patient care
Anticipated Discharge: > 48 hours
Subjective/Interval History
-
Date of Service: June 01, 2024
Objective Data
-
Labs:
Laboratory Results
06/01/24
04:39
WBC 8.8
Hgb 7.6 L
Hct 23.4 L
Plt Count 176
Vital Signs:
Vital Signs
Temp Pulse Resp BP Pulse Ox
98.0 F 92 15 101/70 100
06/01/24 11:54 06/01/24 14:30 06/01/24 14:30 06/01/24 14:30 06/01/24 14:30
I&O
05/31/24 06/01/24 06/02/24
06:59 06:59 06:59
Intake Total 720 / 720 50 / 50
Output Total 150 / 150 275 / 275
Balance 570 / 570 -225 / -225
Physical Exam
-
General: No Apparent Distress
Respiratory: Crackles
GI: Soft, Nontender and Nondistended
Musculoskeletal: No Clubbing, Edema, Right Upper Extrem and Edema, Left Upper Extrem
Skin: Warm
Neuro: Awake and Alert
Psych: Calm
--- NOTE | 2024-06-01 17:04 | W.PN.NEPH.HD ---
Assessment
-
pt seen during HD
vitals stable
BP drops with UF
high dose CAROL for anemia
monitor resp status closely, asp risk, on TF
next HD -TTS this week
CVC functions fine
abx per ID for PNA
Progress Note - Hemodialysis
-
Date of Service: June 01, 2024
Duration: 30 minutes and 3 hours
Potassium Bath: 3
Calcium Bath: 2.5
Opti-Dialyzer: 160
Ultrafiltration: Other (2-2.5)
Blood Flow: 400
Dialysate Flow: 600
Heparin: no
EPO: [id number]
[2024-06-01] MEDS: STERILE WATER FOR INJECTION 10 ML IV (17:34)
[2024-06-01] MEDS: MERREM 500 MG IV (17:34)
[2024-06-01] MEDS: APRESOLINE 50 MG TUBE ×2 (17:35→22:02)
[2024-06-01 18:27] LABS: Glucose - Point of Care 128 mg/dl (70-99)
--- NOTE | 2024-06-01 21:25 | PTCARENOTE ---
Received patient from previous RN. Patient is orientated to self. Mouth care completed and aspiration precautions maintained. Tube feed running at 35 ml/hr with no water flush. Stevenson in place draining yellow urine and rectal trumpet in place
draining brown liquid stool. Patient resting in bed with call skinner in reach. See work list for full assessment.
[2024-06-01] MEDS: XALATAN OPHTHALMIC SOLUTION 1 DROP BOTH EYES (22:03)
--- NOTE | 2024-06-01 23:42 | VATNOTE ---
RUE PICC DRSG AGAIN NON-OCCLUSIVE AND SATURATED WITH SEROUS DRAINAGE. RD AND BIOPATCH AND GUAZE APPLIED TO HELP WITH COPIOUS FLUID BUILD UP AND REDUCE IMPACT ON DRSG INTEGRITY. VAT TO FOLLOW.
[2024-06-01 23:47] LABS: Glucose - Point of Care 125 mg/dl (70-99)
[2024-06-02] VITALS (24 sets, daily range): BP systolic 119–182; BP diastolic 57–80; PULSE 88–90; O2SAT 100; BMI 19.6
[2024-06-02 04:54] LABS: % Basophils 0.3 % (0-2); % Eosinophils 5.9 % (0-6); % Immature Granulocytes 0.8 % (0-0.5); % Lymphocytes 4.4 % (20.5-51.1); % Monocytes 4.7 % (1.7-9.3); % Neutrophils 83.9 % (42.2-75.2); Absolute Eosinophils 0.4 10^3/uL (0-0.7); Absolute Immature Granulocytes 0.1 10^3/uL (0-0.05); Absolute Lymphocytes 0.3 10^3/uL (1.2-3.4); Absolute Monocytes 0.3 10^3/uL (0.1-0.6); Absolute Neutrophils 5.5 10^3/uL (1.4-6.5); Hematocrit 22.6 % (39.0-52.0); Hemoglobin 7.4 g/dL (13.0-18.0); Mean Corp Hgb Conc. 32.7 g/dL (33.0-37.0); Mean Corpuscular Hgb 29.2 pg (27.0-31.0); Mean Corpuscular Volume 89.3 fL (80.0-94.0); Mean Platelet Volume 11.4 fL (7.4-10.4); Nucleated Red Blood Cells % 0 % (-); Platelet Count 177 10^3/uL (130-400); Red Blood Cell Count 2.53 10^6/uL (4.70-6.10); Red Cell Dist. Width 19.5 % (11.5-14.5); White Blood Cell Count 6.6 10^3/uL (4.8-10.8)
[2024-06-02] MEDS: TYLENOL ORAL SOLUTION 650 MG TUBE ×4 (05:36→23:10)
[2024-06-02] MEDS: NOVOLOG FLEXPEN-LOW RESISTANCE SC ×2 (05:40→12:25)
[2024-06-02 05:49] LABS: Glucose - Point of Care 118 mg/dl (70-99)
--- NOTE | 2024-06-02 08:46 | W.PN.ID1 ---
Date of Service
Date of Service: June 02, 2024
Today's Communication
awaiting sputum culture
continue meropenem
Assessment / Plan
Fever
Hospital Acquired Pneumonia
Recent Pneumonia due to Serratia
Bilteral Upper Extremity DVTs
Recent Bacteroides (anaerobic) bacteremia 05/14
Reported allergies to penicillin and ciprofloxacin
TORSTEN on CKD now on HD
- blood cultures x2 no growth to date
- sputum culture - 3 morphotypes of GNR
- suspect ongoing aspiration - currently with NGT for tube feeds
- HIDA without evidence of biliary obstruction
- c/w meropenem
- medium term prognosis guarded with recurrent aspiration
AW
Chief Complaint
-: Fever
Subjective / Review of Systems
afebrile
bp stable
liquid stool
Vital Signs / Physical Exam
Vital Signs
Vital Signs
Temp Pulse Resp BP Pulse Ox
98.7 F 93 13 149/61 100
06/02/24 07:14 06/02/24 06:00 06/02/24 06:00 06/02/24 06:01 06/02/24 06:00
Physical Exam
Constitutional: No Acute Distress and Chronically Ill
Cardiovascular: Regular Rate and S1/S2; Negative Murmur or Rub
Pulmonary: Clear and Symmetric; Negative Wheezes or Rales
Gastrointestinal: Soft, Non Tender, Non Distended and Normal Bowel Sounds
Skin: Warm and Dry; Negative Rash or Jaundice
Objective Data
Lab Data
Lab Results
06/02/24 04:19
05/31/24 12:34
PT 17.8 Sec (11.4-14.6) H 05/14/24 09:21
INR 1.48 05/14/24 09:21
APTT 37.6 Sec (23.4-35.0) H 05/14/24 09:21
Estimated Creat Clear 11 ml/min 05/31/24 12:34
Lactic Acid Cancelled 05/14/24 22:45
Total Bilirubin 0.4 mg/dl (0.2-1.3) 05/31/24 12:34
AST 28 U/L (17-59) 05/31/24 12:34
ALT 33 U/L (0-50) 05/31/24 12:34
Alkaline Phosphatase 127 U/L (38-126) H 05/31/24 12:34
Most recent labs reviewed.
Micro Results:
05/30/24 12:27 Blood Culture - Preliminary
Blood/Venous No Growth in 48 hours- Final report to follow
05/30/24 10:43 Blood Culture - Preliminary
Blood/Venous No Growth in 48 hours- Final report to follow
05/30/24 23:50 Respiratory Culture - Preliminary
Sputum Gram negative bacilli x3, few - lab working on ID
Gram Stain - Preliminary
05/30/24 16:06 Nasal Screen MRSA (PCR) - Final
Nose MRSA not detected - performed by PCR methodology.
05/29/24 14:55 Influenza Types A & B (NATE) - Final
Nasal Swab Negative for Influenza A & B, NAAT
Negative results must be combined with clinical observations
and patient history.
Nucleic Acid Amplification test (NAAT)performed on the
[employer] NOW platform.
05/14/24 11:12 Blood Culture - Final
Blood/Venous Bacteroides intermedius
Gram Stain - Final
05/14/24 09:21 Blood Culture - Final
Blood/Venous No Growth - Final Report
05/14/24 13:12 Respiratory Culture - Final
Tracheal Aspirate Serratia marcescens
Gram Stain - Final
05/14/24 11:34 MRSA Screen - Final
Nose No Methicillin Resistant Staphylococcus aureus isolated.
05/14/24 13:12 Legionella Urinary Antigen - Final
Urine Negative for Legionella pneumophila Serogroup 1 antigen.
A negative result does not rule out the possiblity of
Legionella infection due to other serogroups or species of
Legionella. Clinical correlation is recommended.
Streptococcus pneumoniae Antigen (M - Final
Negative for Streptococcus pneumoniae antigen.
A negative result does not exclude infection with
Streptococcus pneumoniae. Clinical correlation is
recommended.
05/14/24 09:25 Influenza Types A & B (NATE) - Final
Nasal Swab Negative for Influenza A & B, NAAT
Negative results must be combined with clinical observations
and patient history.
Nucleic Acid Amplification test (NAAT)performed on the
[employer] platform.
HIDA: patent cystic and CBD
[2024-06-02] MEDS: ALPHAGAN P 0.15% EYE DROPS 1 DROP BOTH EYES (09:14)
[2024-06-02] MEDS: TRUSOPT 2% OPHTHALMIC SOLUTION 1 DROP BOTH EYES ×2 (09:14→20:10)
[2024-06-02] MEDS: COREG 6.25 MG TUBE ×2 (09:15→20:09)
[2024-06-02] MEDS: ELIQUIS 5 MG PO ×2 (09:15→20:10)
[2024-06-02] MEDS: MIRALAX 17 GRAMS TUBE (09:15)
[2024-06-02] MEDS: LEVOTHROID 50 MCG IV (09:16)
[2024-06-02] MEDS: DESENEX/MITRAZOL/ZEASORB 1 APPLIC TOPICAL ×2 (09:16→20:10)
[2024-06-02] MEDS: APRESOLINE 50 MG TUBE ×3 (09:16→20:09)
[2024-06-02] MEDS: KEPPRA 500 MG IV (09:17)
--- NOTE | 2024-06-02 09:59 | W.PN.NEPH.PH ---
Today's Communication / Plan
-
Dialysis tomorrow
Assessment/Plan
-
Impression:
HTN emergency
Suspected seizures with tongue bite
Acute respiratory failure -VDRF
Elevated troponin, most likely non-ischemic cardiac injury
Hx of pericardial effusion s/p pericardiocentesis
Recent abdominal discomfort
TORSTEN on CKD stage 5 -cr mid 4s in Mar
mixed acid base disorder-HAGMA and elevated lactate
Alkalemia with primary rep alkalosis
Macroglossia-severe hypothyroidism
Transaminitis
PAD s/p b/l AKA and femoral stents
Renal artery stenosis of solitary kidney-deemed not a candidate for renal artery revasc with poor vascular
Hx of prostate CA
HLD
Glaucoma
Hx of GIB
CHronic anemia
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
Stage 1 sacral wound
Diverticulosis
Coronary artery disease
Renal cancer with history of left nephrectomy
He also with MGUS supposed to see heme out pt but never happened for BM biopsy
Plan:
HD changed to tomorrow due to busy HD schedule and short staff
likely cannot use UE edema as gauge of volume given DVT
follow hgb, escalate CAROL for falling hemoglobin
continue TF with out FWF
alicea per urology *dorsal slit)
-
-
Date of Service: June 02, 2024
CC / HPI / ROS
-
Chief Complaint:
TORSTEN with CKD4
History of Present Illness:
tolerated HD now TTS
oligoanuric with alicea
BP stable
extubated 05/21
hgb down to 7.7
on eliquis for UE DVT
NGT/TF in place
Review of Systems:
no fever
more awake, answered sometimes but confused
not on O2
Labs
-
Labs:
WBC 6.6 10^3/uL (4.8-10.8) 06/02/24 04:19
RBC 2.53 10^6/uL (4.70-6.10) L 06/02/24 04:19
Hgb 7.4 g/dL (13.0-18.0) L 06/02/24 04:19
Hct 22.6 % (39.0-52.0) L 06/02/24 04:19
Plt Count 177 10^3/uL (130-400) 06/02/24 04:19
Sodium 134 mmol/L (135-145) L 05/31/24 12:34
Potassium 4.2 mmol/L (3.5-5.1) 05/31/24 12:34
Chloride 95 mmol/L (98-107) L 05/31/24 12:34
Carbon Dioxide 21 mmol/L (22-30) L 05/31/24 12:34
BUN 86 mg/dl (9-20) H 05/31/24 12:34
Creatinine 4.0 mg/dL (0.7-1.3) H 05/31/24 12:34
eGFR 14.42 05/31/24 12:34
Glucose 135 mg/dl (70-99) H 05/31/24 12:34
Calcium 7.6 mg/dl (8.4-10.2) L 05/31/24 12:34
Wqi-C-Offkslzmvmj Pept 6600 pg/ml 05/16/24 03:30
Albumin 2.6 g/dl (3.5-5.0) L 05/31/24 12:34
Physical Exam
-
Vital Signs:
Vital Signs
Temp Pulse Resp BP Pulse Ox
98.7 F 92 13 148/64 100
06/02/24 07:14 06/02/24 09:16 06/02/24 06:00 06/02/24 09:16 06/02/24 06:00
Cardiovascular:: Regular rate and rhythm
Respiratory:: Bilateral: Coarse
Lung Excursion:: Normal
Abdomen:: Nontender and Soft
Extremity Edema:: None: Bilateral: (Bilateral AKA)
Alicea Catheter: Yes
--- NOTE | 2024-06-02 11:07 | CM ---
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 PICC line.
Receiving IV Keppra, IV levothyroxine, IV Abx. NPO. Dobhoff- Tube feeding. Stevenson. PT/OT recommends skilled rehab. Per nurse assessment; oral suctioning. Per MD; fluctuating mental status, plan GOC discussion with family.
Received phone call from [facility]; provided clinical update including not ready for d/c.
Plan follow up after GOC discussions MD/family completed.
[2024-06-02 12:04] LABS: Glucose - Point of Care 135 mg/dl (70-99)
--- NOTE | 2024-06-02 12:15 | PTOTSP ---
HORTICULTURAL FARM MANAGER Note
Patient presents with oral/pharyngeal dysphagia related to acute illness/deconditioning and exacerbated by acute cognitive linguistic changes. Further objective assessment of swallowing warranted via video swallow study to assist with plan of care
and goals of care development.
Recommend:
1. NPO - continue non-oral means
2. Medications via non-oral means
3. Aspiration risk hydration protocol - single sips of water with nurse only if awake/alert and after oral care; verbal cue to swallow/pinch straw
4. Video swallow study for POC and GOC
5. Continued motor speech/cognitive linguistic tx.
--- NOTE | 2024-06-02 13:10 | PTOTSP ---
Speech Language Pathology
VIDEOFLUOROSCOPIC SWALLOWING EXAMINATION (VSE) completed. Overall, pt with mild-mod oral and mild pharyngeal dysphagia. Penetration noted with thin liquids only with no other penetration or any aspiration noted. Minimal pharyngeal residue, which
pt independently cleared with subsequent swallows.
Recommend:
(1) Initiate IDDSI Level 4 (Puree) and Thin Liquids
(2) Aspiration precautions: feed only when alert, sit upright, slow rate, ensure oral cavity clear post P.O. intake
(3) Meds as tolerated
(4) MOTOR REBUILDER to continue to follow for dysphagia tx, cognitive-linguistic tx, and dysarthria tx
--- NOTE | 2024-06-02 15:53 | PTCARENOTE ---
Assumed care for patient during the day, received report from RN. Pt AAOx2 oriented to time and self, unable to tell us where he is. Arousable to verbal. Able to follow simple commands. Normal sinus on tele. 98% on RA audible coarse rhonchi, dry and
occasional cough. PT/OT saw patient see notes. Swallow video study completed, see speech pathology note. Upgraded to IDDS 4 diet with direct supervision. Scrotum is pink tender during alicea care. Alicea remains care given. Full CHG bath. PICC line
dressing clean, dry, and intact. General anasarca to upper extremities. Due for HD tomorrow. Pt family bedside. Educated on use of call skinner. Call skinner is within reach.
--- NOTE | 2024-06-02 16:29 | W.PN.HOSP.TC ---
Today's Communication/Plan
-
VSE today.
According to evaluation will start pur�ed diet with aspiration precautions
Keep NG tube in place for now open
Hold tube feeding while initiating oral diet.
Continue antibiotics pending final cultures
Monitor temperature curve
Assessment / Plan
Assessment / Plan
78yo M with PMHx of severe PAD s/p b/l AKA s/p fem-fem bypass, Hx of prostate CA, CAD s/p PCI, stage 1 sacral pressure wound, glaucoma, labile HTN, Hx of pericardial effusion, R solitary kidney, Hx of retroperitoneal fibrosis, renal artery stenosis,
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
CKD, also developed UGIB. Extubated on 05/21/24. Was found pneumonia with serratia and bacteremia with bacteroides. Prolonged dysphagia and poor cooperation so NG tube for feeding started
Impression:
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
Ventilatory dependent respiratory failure secondary to above
Intubated for airway protection and secondary to macroglossia
Nosocomial/aspiration pneumonia with Serratia in sputum
Bacteremia
Hypertensive emergency.
Tongue laceration and bleeding.
Acute kidney injury on CKD.
Persistent metabolic acidosis/lactic acidosis.
Provoked generalized seizure.
Acute bilateral upper extremity DVT
Abnormal LFT.
Thrombocytopenia
Conditions prior to admission:
Chronic kidney disease
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
Solitary kidney.
Chronic hydronephrosis.
CAD.
Essential hypertension
PAD.
Renal CA with history of left nephrectomy.
Plan:
Persistent fevers
Hx of bacteremia with Bacteroides species on admission
Bcx to be repeated (unfortunately very hard stick, so got delayed)
Chest XR showed resolution of pneumonia, Stevenson replaced on 05/29/24, new UA not concerning for UTI
Has bilateral upper extremity DVT.
Chest x-ray with bilateral atelectasis, likely resolving pneumonia.
Abdominal ultrasound with gallbladder wall thickening, although patient with no abdominal pain and normal LFT.
Blood cultures pending
Continue antibiotics consolidated to meropenem pending blood cultures
Low clinical suspicion for acute cholecystitis. HIDA scan has been ordered.
Aspiration syndrome.
Multifactorial due to fluctuating cognitive status, poor secretion control
Completed course of antibiotics for aspiration pneumonia
Repeated sputum culture with gram-negative pathogens confirming aspiration
With some improvement of mentation VSE performed 06/02. Recommended pur�ed diet with thin liquids and strict aspiration precautions.
Initiated oral intake with caution
Will keep NG tube in place for another 24 to 48 hours monitoring oral intake
Hold tube feeding for now
VDRF.
Extubated on 05/21. Speech and swallow evaluation
Myxedema coma.
TSH over 200, trending down to 72
Continue IV levothyroxine.
Corticosteroids tapered off
Hypertensive emergency.
Off Cardene drip
IV hydralazine/labetalol
Monitor BP with HD volume management
CAD by history. Echocardiogram 05/14 LVEF greater than 70%. Mild to moderate MR, mild to moderate AR, mild TR.
TORSTEN on CKD baseline persistent metabolic acidosis.
Azotemia.
Initiated on hemodialysis on 05/20
Continue dialysis as per nephrology
New onset/provoked generalized seizure.
Neurology consultation.
MRI of the brain shows possible acute to subacute infarction
Initiated on Keppra 500 mg daily
Laceration tonic with hemorrhage
Acute on chronic anemia secondary to blood loss with low with hemoglobin 6.7
Status post 2 units packed red blood cells
Transfuse to keep hemoglobin above 8
Continue IV PPI
Nutrition
NG tube in place.
Undergoing speech and swallow evaluation recommended n.p.o. given poor secretion management, macroglossia and risk for aspiration.
Bilateral upper extremity DVT
Started on Eliquis 05/22
Thrombocytopenia suspect consumptive
HIT panel negative.
Currently on Eliquis of heparin
Phimosis s/p incision and Stevenson placement by Urology
DVT prophylaxis�Eliquis
Full code
06/02: Goals of care discussion with multiple family members at the bedside
Patient now with prolonged hospitalization and complex clinical picture including myxedema coma, respiratory failure, severe aspiration syndrome and pneumonia, poor secretion management, acute kidney injury requiring initiation of hemodialysis.
Discussion of goals of care and possible options in the settings of severe aspiration syndrome including the option of a PEG tube placement if failed oral nutrition, although potentially not reducing aspiration risk or improving quality of life.
Also discussed potential clinical scenario with worsening of respiratory status and requirements for CPR and intubation.
Family would like to continue with current status and maintain full code.
Anticipated Discharge: > 48 hours
Subjective/Interval History
-
Date of Service: June 02, 2024
Objective Data
-
Labs:
Laboratory Results
06/02/24
04:19
WBC 6.6
Hgb 7.4 L
Hct 22.6 L
Plt Count 177
Vital Signs:
Vital Signs
Temp Pulse Resp BP Pulse Ox
98.9 F 85 11 140/65 98
06/02/24 15:19 06/02/24 15:31 06/02/24 15:31 06/02/24 15:31 06/02/24 15:46
I&O
06/01/24 06/02/24 06/03/24
06:59 06:59 06:59
Intake Total 50 / 50 420 / 420
Output Total 275 / 275 50 / 50 500 / 500
Balance -225 / -225 370 / 370 -500 / -500
Physical Exam
-
General: No Apparent Distress
Respiratory: Crackles
GI: Soft, Nontender and Nondistended
Musculoskeletal: No Clubbing, Edema, Right Upper Extrem and Edema, Left Upper Extrem
Skin: Warm
Neuro: Awake and Alert
Psych: Calm
[2024-06-02 16:43] LABS: Glucose - Point of Care 125 mg/dl (70-99)
[2024-06-02] MEDS: MERREM 500 MG IV (17:02)
[2024-06-02] MEDS: STERILE WATER FOR INJECTION 10 ML IV (17:03)
[2024-06-02] MEDS: XALATAN OPHTHALMIC SOLUTION 1 DROP BOTH EYES (23:10)
[2024-06-03] VITALS (33 sets, daily range): BP systolic 110–166; BP diastolic 59–88; BMI 19.6
--- NOTE | 2024-06-03 01:54 | PTCARENOTE ---
Pt received from previous RN in bed. AAOx2 (time), pleasantly confused, garbled speech at times. Telemetry = ST. Full physical assessment documented (refer to MAR). HS hygiene and alicea care completed. Turned and repositioned for comfort.
Rectal trumpet draining brown liquid. Dobhoff to R nare. RDL PICC w/brisk blood return (redressed by VAT RN). Call skinner within reach. Plan of care ongoing.
[2024-06-03] MEDS: TYLENOL ORAL SOLUTION 650 MG TUBE (06:24)
[2024-06-03] MEDS: DESENEX/MITRAZOL/ZEASORB 1 APPLIC TOPICAL ×2 (08:01→20:56)
[2024-06-03] MEDS: ALPHAGAN P 0.15% EYE DROPS 1 DROP BOTH EYES (08:01)
[2024-06-03] MEDS: ELIQUIS 5 MG PO ×2 (08:02→20:56)
[2024-06-03] MEDS: KEPPRA 500 MG IV (08:03)
[2024-06-03] MEDS: LEVOTHROID 50 MCG IV (08:04)
[2024-06-03] MEDS: MIRALAX 17 GRAMS TUBE (08:05)
[2024-06-03] MEDS: TRUSOPT 2% OPHTHALMIC SOLUTION 1 DROP BOTH EYES ×2 (08:05→20:57)
[2024-06-03 08:38] LABS: Hematocrit 23.3 % (39.0-52.0); Hemoglobin 7.6 g/dL (13.0-18.0)
[2024-06-03 08:50] LABS: Carbon Dioxide 21 mmol/L (22-30); Chloride 100 mmol/L (98-107); Sodium 136 mmol/L (135-145)
--- NOTE | 2024-06-03 09:16 | W.PN.ID1 ---
Date of Service
Date of Service: June 03, 2024
Today's Communication
- has completed a 5 day total course of effective antibiotics which is sufficient - stopped
- medium term prognosis guarded with recurrent aspiration - patient at ongoing risk of relapse given known aspiration, precautions being taken
Assessment / Plan
Fever
Hospital Acquired Pneumonia
Recent Pneumonia due to Serratia
Bilteral Upper Extremity DVTs
Recent Bacteroides (anaerobic) bacteremia 05/14
Reported allergies to penicillin and ciprofloxacin
TORSTEN on CKD now on HD
- blood cultures x2 no growth to date
- sputum culture - few E coli, Pseudomonas, Acinetobacter - sensitive to first line drugs
- suspect ongoing aspiration - currently with NGT for tube feeds
- has completed a 5 day total course of effective antibiotics which is sufficient - stopped
- medium term prognosis guarded with recurrent aspiration - patient at ongoing risk of relapse given known aspiration, precautions being taken
AW
Chief Complaint
-: Fever and Other (pneumonia)
Subjective / Review of Systems
remains afebrile
bp stable
Vital Signs / Physical Exam
Vital Signs
Vital Signs
Temp Pulse Resp BP Pulse Ox
98.8 F 99 14 133/66 100
06/03/24 09:00 06/03/24 06:00 06/03/24 06:00 06/03/24 06:00 06/02/24 16:07
Physical Exam
Constitutional: No Acute Distress and Chronically Ill
Cardiovascular: Regular Rate and S1/S2; Negative Murmur or Rub
Pulmonary: Clear and Symmetric; Negative Wheezes or Rales
Gastrointestinal: Soft, Non Tender, Non Distended and Normal Bowel Sounds
Skin: Warm and Dry; Negative Rash or Jaundice
Objective Data
Lab Data
Lab Results
06/03/24 08:30
06/03/24 08:30
PT 17.8 Sec (11.4-14.6) H 05/14/24 09:21
INR 1.48 05/14/24 09:21
APTT 37.6 Sec (23.4-35.0) H 05/14/24 09:21
Estimated Creat Clear 11 ml/min 05/31/24 12:34
Lactic Acid Cancelled 05/14/24 22:45
Total Bilirubin 0.4 mg/dl (0.2-1.3) 05/31/24 12:34
AST 28 U/L (17-59) 05/31/24 12:34
ALT 33 U/L (0-50) 05/31/24 12:34
Alkaline Phosphatase 127 U/L (38-126) H 05/31/24 12:34
Most recent labs reviewed.
Respiratory Culture Final 06/03/24-0912
Few Escherichia coli
Few Pseudomonas aeruginosa
Few Acinet. baumannii/haemolyticus
Organism 1 Escherichia coli
Organism 2 Pseudomonas aeruginosa
Organism 3 Acinet. baumannii/haemolyticus
E.COLI P.AERU ACIBAH
M.I.C. RX M.I.C. RX M.I.C. RX
--------- --- --------- --- --------- ---
Amoxicillin/Potas. Clavulanate 16/8 I
Ampicillin >16 R
Ampicillin/Sulbactam >16/8 R <=4/2 S
Aztreonam <=4 S <=4 S
Cefazolin 16 R
Cefepime <=2 S <=2 S 8 S
Ceftazidime <=1 S <=1 S 8 S
Ceftriaxone <=1 S
Ertapenem <=0.5 S
Ciprofloxacin <=0.25 S <=0.25 S
Gentamicin >8 R <=2 S
Meropenem <=1 S <=1 S <=1 S
Piperacillin/Tazobactam <=8 S <=8 S
Tetracycline >8 R
Tobramycin 4 S <=2 S <=2 S
Trimethoprim/Sulfamethoxazole >2/38 R <=2/38 S
Micro Results:
05/30/24 23:50 Respiratory Culture - Final
Sputum Escherichia coli
Pseudomonas aeruginosa
Acinet. baumannii/haemolyticus
Gram Stain - Final
05/30/24 12:27 Blood Culture - Preliminary
Blood/Venous No Growth in 72 hours- Final report to follow
05/30/24 10:43 Blood Culture - Preliminary
Blood/Venous No Growth in 72 hours- Final report to follow
05/30/24 16:06 Nasal Screen MRSA (PCR) - Final
Nose MRSA not detected - performed by PCR methodology.
05/29/24 14:55 Influenza Types A & B (NATE) - Final
Nasal Swab Negative for Influenza A & B, NAAT
Negative results must be combined with clinical observations
and patient history.
Nucleic Acid Amplification test (NAAT)performed on the
[employer] platform.
05/14/24 11:12 Blood Culture - Final
Blood/Venous Bacteroides intermedius
Gram Stain - Final
05/14/24 09:21 Blood Culture - Final
Blood/Venous No Growth - Final Report
05/14/24 13:12 Respiratory Culture - Final
Tracheal Aspirate Serratia marcescens
Gram Stain - Final
05/14/24 11:34 MRSA Screen - Final
Nose No Methicillin Resistant Staphylococcus aureus isolated.
05/14/24 13:12 Legionella Urinary Antigen - Final
Urine Negative for Legionella pneumophila Serogroup 1 antigen.
A negative result does not rule out the possiblity of
Legionella infection due to other serogroups or species of
Legionella. Clinical correlation is recommended.
Streptococcus pneumoniae Antigen (M - Final
Negative for Streptococcus pneumoniae antigen.
A negative result does not exclude infection with
Streptococcus pneumoniae. Clinical correlation is
recommended.
05/14/24 09:25 Influenza Types A & B (NATE) - Final
Nasal Swab Negative for Influenza A & B, NAAT
Negative results must be combined with clinical observations
and patient history.
Nucleic Acid Amplification test (NAAT)performed on the
[employer] platform.
HIDA: patent cystic and CBD
--- NOTE | 2024-06-03 09:23 | W.PN.NEPH.HD ---
Assessment
-
Patient seen on dialysis
Systolic blood pressure stable at 1.5kg u/f
Remains on meropenem
Remains with feeding tube but attempting to advance diet today
Progress Note - Hemodialysis
-
Date of Service: June 03, 2024
Duration: 30 minutes and 3 hours
Potassium Bath: 3
Calcium Bath: 2.5
Opti-Dialyzer: 160
Blood Flow: 400
Dialysate Flow: 600
Heparin: none
EPO: 10K
[2024-06-03] MEDS: RETACRIT 12000 UNITS IV (09:32)
[2024-06-03] MEDS: COREG TUBE (09:47)
[2024-06-03] MEDS: APRESOLINE TUBE (09:47)
[2024-06-03] MEDS: NOVOLOG FLEXPEN-LOW RESISTANCE SC ×3 (09:49→16:57)
[2024-06-03 10:24] LABS: Glucose - Point of Care 109 mg/dl (70-99)
[2024-06-03] MEDS: HEPARIN 3900 UNITS INTRACATH (11:53)
[2024-06-03] MEDS: TYLENOL 650 MG PO ×3 (12:01→23:47)
[2024-06-03] MEDS: COREG 6.25 MG TUBE ×2 (12:23→20:56)
[2024-06-03 12:27] LABS: Glucose - Point of Care 97 mg/dl (70-99)
[2024-06-03] MEDS: APRESOLINE 50 MG TUBE ×2 (15:14→22:03)
--- NOTE | 2024-06-03 15:48 | W.PN.HOSP.TC ---
Today's Communication/Plan
-
Monitor oral intake with aspiration precautions
Hold tube feeding.
Keep NG tube in place for now.
Observe off antibiotics
Assessment / Plan
Assessment / Plan
78yo M with PMHx of severe PAD s/p b/l AKA s/p fem-fem bypass, Hx of prostate CA, CAD s/p PCI, stage 1 sacral pressure wound, glaucoma, labile HTN, Hx of pericardial effusion, R solitary kidney, Hx of retroperitoneal fibrosis, renal artery stenosis,
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
CKD, also developed UGIB. Extubated on 05/21/24. Was found pneumonia with serratia and bacteremia with bacteroides. Prolonged dysphagia and poor cooperation so NG tube for feeding started
Impression:
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
Ventilatory dependent respiratory failure secondary to above
Intubated for airway protection and secondary to macroglossia
Nosocomial/aspiration pneumonia with Serratia in sputum
Bacteremia
Hypertensive emergency.
Tongue laceration and bleeding.
Acute kidney injury on CKD.
Persistent metabolic acidosis/lactic acidosis.
Provoked generalized seizure.
Acute bilateral upper extremity DVT
Abnormal LFT.
Thrombocytopenia
Conditions prior to admission:
Chronic kidney disease
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
Solitary kidney.
Chronic hydronephrosis.
CAD.
Essential hypertension
PAD.
Renal CA with history of left nephrectomy.
Plan:
Persistent fevers
Hx of bacteremia with Bacteroides species on admission
Bcx to be repeated (unfortunately very hard stick, so got delayed)
Chest XR showed resolution of pneumonia, Stevenson replaced on 05/29/24, new UA not concerning for UTI
Has bilateral upper extremity DVT.
Chest x-ray with bilateral atelectasis, likely resolving pneumonia.
Abdominal ultrasound with gallbladder wall thickening, although patient with no abdominal pain and normal LFT.
Blood cultures pending
Completed additional 5 days of meropenem on 06/03.
Low clinical suspicion for acute cholecystitis. HIDA scan has been ordered.
Aspiration syndrome.
Multifactorial due to fluctuating cognitive status, poor secretion control
Completed course of antibiotics for aspiration pneumonia
Repeated sputum culture with gram-negative pathogens confirming aspiration
With some improvement of mentation VSE performed 06/02. Recommended pur�ed diet with thin liquids and strict aspiration precautions.
Initiated oral intake with caution
Will keep NG tube in place for another 24 to 48 hours monitoring oral intake
Hold tube feeding for now
VDRF.
Extubated on 05/21. Speech and swallow evaluation
Myxedema coma.
TSH over 200, trending down to 72
Continue IV levothyroxine.
Corticosteroids tapered off
Hypertensive emergency.
Off Cardene drip
IV hydralazine/labetalol
Monitor BP with HD volume management
CAD by history. Echocardiogram 05/14 LVEF greater than 70%. Mild to moderate MR, mild to moderate AR, mild TR.
TORSTEN on CKD baseline persistent metabolic acidosis.
Azotemia.
Initiated on hemodialysis on 05/20
Continue dialysis as per nephrology
New onset/provoked generalized seizure.
Neurology consultation.
MRI of the brain shows possible acute to subacute infarction
Initiated on Keppra 500 mg daily
Laceration tonic with hemorrhage
Acute on chronic anemia secondary to blood loss with low with hemoglobin 6.7
Status post 2 units packed red blood cells
Transfuse to keep hemoglobin above 8
Continue IV PPI
Nutrition
NG tube in place.
Undergoing speech and swallow evaluation recommended n.p.o. given poor secretion management, macroglossia and risk for aspiration.
Bilateral upper extremity DVT
Started on Eliquis 05/22
Thrombocytopenia suspect consumptive
HIT panel negative.
Currently on Eliquis of heparin
Phimosis s/p incision and Stevenson placement by Urology
DVT prophylaxis�Eliquis
Full code
06/02: Goals of care discussion with multiple family members at the bedside
Patient now with prolonged hospitalization and complex clinical picture including myxedema coma, respiratory failure, severe aspiration syndrome and pneumonia, poor secretion management, acute kidney injury requiring initiation of hemodialysis.
Discussion of goals of care and possible options in the settings of severe aspiration syndrome including the option of a PEG tube placement if failed oral nutrition, although potentially not reducing aspiration risk or improving quality of life.
Also discussed potential clinical scenario with worsening of respiratory status and requirements for CPR and intubation.
Family would like to continue with current status and maintain full code.
Anticipated Discharge: 24 - 48 hours
Subjective/Interval History
-
Date of Service: June 03, 2024
Objective Data
-
Labs:
Laboratory Results
06/03/24
08:30
Hgb 7.6 L
Hct 23.3 L
Sodium 136
Potassium 4.0
Chloride 100
Carbon Dioxide 21 L
Vital Signs:
Vital Signs
Temp Pulse Resp BP Pulse Ox
98.1 F 83 13 166/73 100
06/03/24 13:06 06/03/24 15:14 06/03/24 12:00 06/03/24 15:14 06/03/24 12:00
I&O
06/02/24 06/03/24 06/04/24
06:59 06:59 06:59
Intake Total 420 / 420
Output Total 50 / 50 550 / 550
Balance 370 / 370 -550 / -550
Physical Exam
-
General: No Apparent Distress
Respiratory: Crackles
GI: Soft, Nontender and Nondistended
Musculoskeletal: No Clubbing, Edema, Right Upper Extrem and Edema, Left Upper Extrem
Skin: Warm
Neuro: Awake and Alert
Psych: Calm
[2024-06-03 16:51] LABS: Glucose - Point of Care 93 mg/dl (70-99)
--- NOTE | 2024-06-03 17:35 | PTCARENOTE ---
Patient AOx2. Patient very lethargic throughout shift, but arouses to voice. HD completed in beginning of shift. Poor appetite for meals. Stevenson draining yellow urine. Rectal trumpet draining liquid stool. Call skinner within reach, bed in lowest
position, and wheels locked.
[2024-06-03 21:52] LABS: Glucose - Point of Care 105 mg/dl (70-99)
[2024-06-03] MEDS: XALATAN OPHTHALMIC SOLUTION 1 DROP BOTH EYES (22:04)
[2024-06-04] VITALS (17 sets, daily range): BP systolic 132–158; BP diastolic 62–86; PULSE 89–94; O2SAT 100; BMI 19.1
[2024-06-04] MEDS: TYLENOL 650 MG PO ×4 (05:38→23:18)
--- NOTE | 2024-06-04 05:55 | PTCARENOTE ---
AAOX1. Drowsy and lethargic throughout the night. Verbal arousable. NSR w/ PVC in the monitor. +1 BLUE edema. Rhonchi lung sounds, SaO2 97% RA. Nonproductive cough. Mouth care provided. Dobbhoff remains in place in the right nare. Call skinner within
reach and contin tx plan.
--- NOTE | 2024-06-04 08:22 | W.PN.ID1 ---
Date of Service
Date of Service: June 04, 2024
Today's Communication
Observe off abx.
Assessment / Plan
Fever - resolved
s/p Hospital Acquired Pneumonia
Recent Pneumonia due to Serratia
Bilteral Upper Extremity DVTs
s/p Recent Bacteroides (anaerobic) bacteremia 05/14
Reported allergies to penicillin and ciprofloxacin
TORSTEN on CKD now on HD
- blood cultures x2 no growth to date
- sputum culture - few E coli, Pseudomonas, Acinetobacter - sensitive to first line drugs
- suspect ongoing aspiration - currently with NGT for tube feeds
- Completed a 5 day total course of effective antibiotics
- medium term prognosis guarded with recurrent aspiration - patient at ongoing risk of relapse given known aspiration, precautions being taken
Chief Complaint
-: Other (pneumonia)
Vital Signs / Physical Exam
Vital Signs
Vital Signs
Temp Pulse Resp BP Pulse Ox
98.9 F 86 10 140/60 98
06/04/24 07:59 06/03/24 22:03 06/03/24 17:11 06/03/24 22:03 06/03/24 20:30
Physical Exam
Constitutional: Chronically Ill
Cardiovascular: Regular Rate and S1/S2
Pulmonary: Other (Decreased BS at bases)
Gastrointestinal: Soft, Non Tender, Non Distended, Normal Bowel Sounds and Other (FMS - liquid dark brown stool)
Objective Data
Lab Data
Lab Results
06/03/24 08:30
06/03/24 08:30
PT 17.8 Sec (11.4-14.6) H 05/14/24 09:21
INR 1.48 05/14/24 09:21
APTT 37.6 Sec (23.4-35.0) H 05/14/24 09:21
Estimated Creat Clear 11 ml/min 05/31/24 12:34
Lactic Acid Cancelled 05/14/24 22:45
Total Bilirubin 0.4 mg/dl (0.2-1.3) 05/31/24 12:34
AST 28 U/L (17-59) 05/31/24 12:34
ALT 33 U/L (0-50) 05/31/24 12:34
Alkaline Phosphatase 127 U/L (38-126) H 05/31/24 12:34
Most recent labs reviewed.
Micro Results:
05/30/24 12:27 Blood Culture - Preliminary
Blood/Venous No Growth in 4 days- Final report to follow
05/30/24 10:43 Blood Culture - Preliminary
Blood/Venous No Growth in 4 days- Final report to follow
05/30/24 23:50 Respiratory Culture - Final
Sputum Escherichia coli
Pseudomonas aeruginosa
Acinet. baumannii/haemolyticus
Gram Stain - Final
05/30/24 16:06 Nasal Screen MRSA (PCR) - Final
Nose MRSA not detected - performed by PCR methodology.
05/29/24 14:55 Influenza Types A & B (NATE) - Final
Nasal Swab Negative for Influenza A & B, NAAT
Negative results must be combined with clinical observations
and patient history.
Nucleic Acid Amplification test (NAAT)performed on the
[employer] platform.
05/14/24 11:12 Blood Culture - Final
Blood/Venous Bacteroides intermedius
Gram Stain - Final
05/14/24 09:21 Blood Culture - Final
Blood/Venous No Growth - Final Report
05/14/24 13:12 Respiratory Culture - Final
Tracheal Aspirate Serratia marcescens
Gram Stain - Final
05/14/24 11:34 MRSA Screen - Final
Nose No Methicillin Resistant Staphylococcus aureus isolated.
05/14/24 13:12 Legionella Urinary Antigen - Final
Urine Negative for Legionella pneumophila Serogroup 1 antigen.
A negative result does not rule out the possiblity of
Legionella infection due to other serogroups or species of
Legionella. Clinical correlation is recommended.
Streptococcus pneumoniae Antigen (M - Final
Negative for Streptococcus pneumoniae antigen.
A negative result does not exclude infection with
Streptococcus pneumoniae. Clinical correlation is
recommended.
05/14/24 09:25 Influenza Types A & B (NATE) - Final
Nasal Swab Negative for Influenza A & B, NAAT
Negative results must be combined with clinical observations
and patient history.
Nucleic Acid Amplification test (NAAT)performed on the
[employer] platform.
HIDA: patent cystic and CBD
[2024-06-04 09:02] LABS: Glucose - Point of Care 98 mg/dl (70-99)
[2024-06-04] MEDS: NOVOLOG FLEXPEN-LOW RESISTANCE SC ×3 (09:12→17:25)
[2024-06-04] MEDS: COREG 6.25 MG TUBE (09:14)
[2024-06-04] MEDS: APRESOLINE 50 MG TUBE (09:15)
[2024-06-04] MEDS: ELIQUIS 5 MG PO ×2 (09:15→19:48)
[2024-06-04] MEDS: ALPHAGAN P 0.15% EYE DROPS 1 DROP BOTH EYES (09:16)
[2024-06-04] MEDS: MIRALAX TUBE (09:18)
[2024-06-04] MEDS: TRUSOPT 2% OPHTHALMIC SOLUTION 1 DROP BOTH EYES ×2 (09:19→19:48)
[2024-06-04] MEDS: KEPPRA 500 MG IV (09:19)
[2024-06-04] MEDS: LEVOTHROID 50 MCG IV (09:20)
[2024-06-04] MEDS: DESENEX/MITRAZOL/ZEASORB 1 APPLIC TOPICAL ×2 (09:22→19:48)
--- NOTE | 2024-06-04 11:17 | W.PN.NEPH.PH ---
Today's Communication / Plan
-
HD tomorrow
Assessment/Plan
-
Impression:
HTN emergency
Suspected seizures with tongue bite
Acute respiratory failure -VDRF
Elevated troponin, most likely non-ischemic cardiac injury
Hx of pericardial effusion s/p pericardiocentesis
Recent abdominal discomfort
TORSTEN on CKD stage 5 -cr mid 4s in Mar
mixed acid base disorder-HAGMA and elevated lactate
Alkalemia with primary rep alkalosis
Macroglossia-severe hypothyroidism
Transaminitis
PAD s/p b/l AKA and femoral stents
Renal artery stenosis of solitary kidney-deemed not a candidate for renal artery revasc with poor vascular
Hx of prostate CA
HLD
Glaucoma
Hx of GIB
CHronic anemia
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
Stage 1 sacral wound
Diverticulosis
Coronary artery disease
Renal cancer with history of left nephrectomy
He also with MGUS supposed to see heme out pt but never happened for BM biopsy
Plan:
HD tomorrow
likely cannot use UE edema as gauge of volume given DVT
follow hgb, high dose of CAROL for low hb
continue TF with out FWF, reportedly pt now eating and likely d/c DHT soon
alicea per urology *dorsal slit)
BP stable
-
-
Date of Service: June 04, 2024
CC / HPI / ROS
-
Chief Complaint:
TORSTEN with CKD4
History of Present Illness:
tolerated HD now TTS
oligoanuric with alicea
BP stable
extubated 05/21
hgb down to 7.7-stable
on eliquis for UE DVT
NGT/TF in place
Review of Systems:
no fever
more awake, answered and able to have conversation
not on O2
Labs
-
Labs:
WBC 6.6 10^3/uL (4.8-10.8) 06/02/24 04:19
RBC 2.53 10^6/uL (4.70-6.10) L 06/02/24 04:19
Hgb 7.6 g/dL (13.0-18.0) L 06/03/24 08:30
Hct 23.3 % (39.0-52.0) L 06/03/24 08:30
Plt Count 177 10^3/uL (130-400) 06/02/24 04:19
Sodium 136 mmol/L (135-145) 06/03/24 08:30
Potassium 4.0 mmol/L (3.5-5.1) 06/03/24 08:30
Chloride 100 mmol/L (98-107) 06/03/24 08:30
Carbon Dioxide 21 mmol/L (22-30) L 06/03/24 08:30
BUN 86 mg/dl (9-20) H 05/31/24 12:34
Creatinine 4.0 mg/dL (0.7-1.3) H 05/31/24 12:34
eGFR 14.42 05/31/24 12:34
Glucose 135 mg/dl (70-99) H 05/31/24 12:34
Calcium 7.6 mg/dl (8.4-10.2) L 05/31/24 12:34
[id number] Pept 6600 pg/ml 05/16/24 03:30
Albumin 2.6 g/dl (3.5-5.0) L 05/31/24 12:34
Physical Exam
-
Vital Signs:
Vital Signs
Temp Pulse Resp BP Pulse Ox
98.9 F 90 10 137/79 99
06/04/24 07:59 06/04/24 10:00 06/04/24 10:00 06/04/24 10:00 06/04/24 10:00
Cardiovascular:: Regular rate and rhythm
Lung Excursion:: Normal (decreased BS)
Abdomen:: Nontender and Soft
Extremity Edema:: +2: Bilateral:
Alicea Catheter: Yes
--- NOTE | 2024-06-04 11:35 | W.PN.HOSP.TC ---
Today's Communication/Plan
-
Overall improved mentation and reasonable oral intake over the last 48 hours.
Continue oral feeding with aspiration precautions.
Daily speech and swallow evaluation per
Secretion management.
Okay to remove NG tube
Continue IV Keppra
Continue IV levothyroxine per
Eventually to transition to full oral medication regimen after reassuring of stable oral intake
HD as per schedule.
Remains on Eliquis for upper extremity DVT
Will follow-up with upper extremity Doppler next week.
Assessment / Plan
Assessment / Plan
78yo M with PMHx of severe PAD s/p b/l AKA s/p fem-fem bypass, Hx of prostate CA, CAD s/p PCI, stage 1 sacral pressure wound, glaucoma, labile HTN, Hx of pericardial effusion, R solitary kidney, Hx of retroperitoneal fibrosis, renal artery stenosis,
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
CKD, also developed UGIB. Extubated on 05/21/24. Was found pneumonia with serratia and bacteremia with bacteroides. Prolonged dysphagia and poor cooperation so NG tube for feeding started
Impression:
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
Ventilatory dependent respiratory failure secondary to above
Intubated for airway protection and secondary to macroglossia
Nosocomial/aspiration pneumonia with Serratia in sputum
Bacteremia
Hypertensive emergency.
Tongue laceration and bleeding.
Acute kidney injury on CKD.
Persistent metabolic acidosis/lactic acidosis.
Provoked generalized seizure.
Acute bilateral upper extremity DVT
Abnormal LFT.
Thrombocytopenia
Conditions prior to admission:
Chronic kidney disease
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
Solitary kidney.
Chronic hydronephrosis.
CAD.
Essential hypertension
PAD.
Renal CA with history of left nephrectomy.
Plan:
Persistent fevers
Hx of bacteremia with Bacteroides species on admission
Bcx to be repeated (unfortunately very hard stick, so got delayed)
Chest XR showed resolution of pneumonia, Stevenson replaced on 05/29/24, new UA not concerning for UTI
Has bilateral upper extremity DVT.
Chest x-ray with bilateral atelectasis, likely resolving pneumonia.
Abdominal ultrasound with gallbladder wall thickening, although patient with no abdominal pain and normal LFT.
Blood cultures pending
Completed additional 5 days of meropenem on 06/03.
Low clinical suspicion for acute cholecystitis. HIDA scan has been ordered.
Aspiration syndrome.
Multifactorial due to fluctuating cognitive status, poor secretion control
Completed course of antibiotics for aspiration pneumonia
Repeated sputum culture with gram-negative pathogens confirming aspiration
With some improvement of mentation VSE performed 06/02. Recommended pur�ed diet with thin liquids and strict aspiration precautions.
Initiated oral intake with caution
Overall improved mentation with reasonable oral intake over the last 48 hours. Remove NG tube.
VDRF.
Extubated on 05/21. Speech and swallow evaluation
Myxedema coma.
TSH over 200, trending down to 72
Continue IV levothyroxine.
Corticosteroids tapered off
Hypertensive emergency.
Off Cardene drip
IV hydralazine/labetalol
Monitor BP with HD volume management
CAD by history. Echocardiogram 05/14 LVEF greater than 70%. Mild to moderate MR, mild to moderate AR, mild TR.
TORSTEN on CKD baseline persistent metabolic acidosis.
Azotemia.
Initiated on hemodialysis on 05/20
Continue dialysis as per nephrology
New onset/provoked generalized seizure.
Neurology consultation.
MRI of the brain shows possible acute to subacute infarction
Initiated on Keppra 500 mg daily
Laceration tonic with hemorrhage
Acute on chronic anemia secondary to blood loss with low with hemoglobin 6.7
Status post 2 units packed red blood cells
Transfuse to keep hemoglobin above 8
Continue IV PPI
Nutrition
NG tube in place.
Undergoing speech and swallow evaluation recommended n.p.o. given poor secretion management, macroglossia and risk for aspiration.
Bilateral upper extremity DVT
Started on Eliquis 05/22
Will follow-up with Doppler
Thrombocytopenia suspect consumptive
HIT panel negative.
Currently on Eliquis of heparin
Phimosis s/p incision and Stevenson placement by Urology
DVT prophylaxis�Eliquis
Full code
06/02: Goals of care discussion with multiple family members at the bedside
Patient now with prolonged hospitalization and complex clinical picture including myxedema coma, respiratory failure, severe aspiration syndrome and pneumonia, poor secretion management, acute kidney injury requiring initiation of hemodialysis.
Discussion of goals of care and possible options in the settings of severe aspiration syndrome including the option of a PEG tube placement if failed oral nutrition, although potentially not reducing aspiration risk or improving quality of life.
Also discussed potential clinical scenario with worsening of respiratory status and requirements for CPR and intubation.
Family would like to continue with current status and maintain full code.
Anticipated Discharge: > 48 hours
Subjective/Interval History
-
Date of Service: June 04, 2024
Objective Data
-
Vital Signs:
Vital Signs
Temp Pulse Resp BP Pulse Ox
98.9 F 90 10 137/79 99
06/04/24 07:59 06/04/24 10:00 06/04/24 10:00 06/04/24 10:00 06/04/24 10:00
I&O
06/03/24 06/04/24 06/05/24
06:59 06:59 06:59
Intake Total 840 / 840
Output Total 550 / 550 150 / 150
Balance -550 / -550 690 / 690
Physical Exam
-
General: No Apparent Distress
Respiratory: Crackles
GI: Soft, Nontender and Nondistended
Musculoskeletal: No Clubbing, Edema, Right Upper Extrem and Edema, Left Upper Extrem
Skin: Warm
Neuro: Awake and Alert
Psych: Calm
[2024-06-04 13:09] LABS: Glucose - Point of Care 120 mg/dl (70-99)
--- NOTE | 2024-06-04 14:24 | CM ---
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 Room air.
Receiving IV Keppra. Dysphagia diet. Plan remove NG tube. Per nurse assessment; confused. PT/OT recommends skilled rehab.
Spoke with Yumiko, patient's niece; she is aware patient is accepted by [facility] however she went and did a tour of the facility and was not impressed, so is now unsure. Discussed the 3 local alternate SNFs that do dialysis and provided [facility]
ratings. Yumiko wants to think over the weekend about which SNF she wants and agrees to let CM know on 06/07. Also discussed considerations for LTC including finances. Yumiko asking about POA process for patient that is confused- advised her
that if mentation improves she can utilize notary otherwise consult an estate attorney.
Spoke with Jackie, s [facility]; she will speak to Raul, the Book [employer] and someone will reach out to the niece to address her concerns.
Plan probable [facility] for short term rehab/possible LTC, with outpatient HD [facility] backup plan if returns home after SNF.
Plan follow up with niece on 06/07 to confirm agreement with [facility].
--- NOTE | 2024-06-04 15:47 | PTOTSP ---
Dysphagia Therapy
Patient with oral/pharyngeal dysphagia per video swallow study 06/02/2024 and changes to cognitive skills (processing, attention, memory) that may elevate dysphagia risk. Patient requesting solids. Trial modified diet below.
Recommend:
1. IDDSI Level 5 Minced and Moist, Thin Liquids
2. Medications - as best tolerated
3. Strategies: feed only when alert, sit upright, slow rate, small sips, liquid wash to assist with oral clearance, ensure oral cavity clear post P.O. intake
4. Oral care at least 2x daily
5. Dysphagia, motor speech, and cognitive linguistic therapy.
[2024-06-04] MEDS: APRESOLINE 50 MG PO ×2 (15:56→21:16)
[2024-06-04 17:35] LABS: Glucose - Point of Care 121 mg/dl (70-99)
--- NOTE | 2024-06-04 18:20 | PTCARENOTE ---
Patient AOx2. Increased appetite for meals. Stevenson draining yellow urine. Rectal trumpet draining liquid stool. Call skinner within reach, bed in lowest position, and wheels locked.
[2024-06-04] MEDS: COREG 6.25 MG PO (19:48)
[2024-06-04] MEDS: XALATAN OPHTHALMIC SOLUTION 1 DROP BOTH EYES (21:16)
[2024-06-04 21:52] LABS: Glucose - Point of Care 135 mg/dl (70-99)
[2024-06-05] VITALS (28 sets, daily range): BP systolic 92–181; BP diastolic 67–87; BMI 19.5
--- NOTE | 2024-06-05 05:00 | PTCARENOTE ---
Assume care from AM RN. AAOx2/3 forgetful at times. Pleasant. NSR w/ PVC. +2 BLUE edema. Stevenson catheter and rectal trumpet intact. Lung sounds are rhonchi and coarse. nonproductive cough. Call skinner within reach, will cont w/ tx plan.
[2024-06-05] MEDS: TYLENOL 650 MG PO ×3 (05:36→23:32)
[2024-06-05 09:10] LABS: Glucose - Point of Care 96 mg/dl (70-99)
[2024-06-05] MEDS: ALPHAGAN P 0.15% EYE DROPS 1 DROP BOTH EYES (09:49)
[2024-06-05] MEDS: NOVOLOG FLEXPEN-LOW RESISTANCE SC ×2 (09:49→17:31)
[2024-06-05] MEDS: APRESOLINE 50 MG PO ×3 (09:50→21:59)
[2024-06-05] MEDS: COREG 6.25 MG PO ×2 (09:50→20:08)
[2024-06-05] MEDS: ELIQUIS 5 MG PO ×2 (09:50→20:08)
[2024-06-05] MEDS: DESENEX/MITRAZOL/ZEASORB 1 APPLIC TOPICAL ×2 (09:55→20:08)
[2024-06-05] MEDS: LEVOTHROID 50 MCG IV (09:57)
[2024-06-05] MEDS: KEPPRA 500 MG IV (09:57)
[2024-06-05] MEDS: FLUSH (NSS) 4 FLUSH IV (09:58)
--- NOTE | 2024-06-05 10:21 | W.PN.HOSP.TC ---
Today's Communication/Plan
-
see plan
Assessment / Plan
Assessment / Plan
78yo M with PMHx of severe PAD s/p b/l AKA s/p fem-fem bypass, Hx of prostate CA, CAD s/p PCI, stage 1 sacral pressure wound, glaucoma, labile HTN, Hx of pericardial effusion, R solitary kidney, Hx of retroperitoneal fibrosis, renal artery stenosis,
MGUS. Presented to ED 05/14/24- brought by the family after he was found unresponsive with swollen and bleeding tongue. 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 Extubated on 05/21/24. Was found pneumonia with serratia and bacteremia with bacteroides. Prolonged dysphagia and poor cooperation so NG tube for feeding started
A/P
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
Ventilatory dependent respiratory failure secondary to above- resolved
Intubated for airway protection and secondary to macroglossia- resolved
- TSH 204 on admission --> downtrended to 72 most recently on 05/22/24
- Mental status significantly improved compared to admission
- Extubated 05/21/24. Protecting airway, no supplemental oxygen requirements now
- S/p corticosteroids, tapered off 05/18
- Continue IV levothyroxine 50mcg daily (started at admission)
Aspiration syndrome- multifactorial etiology
Hospital acquired pneumonia
- Pneumonia likely secondary to aspiration
- Chest xray 05/29/24 demonstrated atelectasis vs resolving pneumonia
- Sputum culture 05/30/24 +E coli, pseudomonas aeruginosa, acinet baumannii/haemolyticus
- ID consulted, s/p 5 day total course of effective antibiotics, off antibiotics since 06/03/24
- Last febrile 05/28/24. Remains afebrile since then.
- Continue to observe off antibiotics
- S/p NGT feeds, dobhoff discontinued 06/04/24. S/p VSE 06/02/24. Speech following, will defer dietary orders to them. Plan to trial moist/minced diet today
- Continue aspiration precautions. Aspiration events multifactorial in nature, not solely related to meals. Even with optimized dietary modifications, patient remains at risk for aspiration events.
Hypertensive emergency on admission
Essential hypertension
- Initially required cardene drip- discontinued 05/18/24
- Recent BPs 139-159/62-76 overnight to today AM.
- Continue carvedilol 6.25mg PO BID and hydralazine 50mg PO TID
- Continue volume management with HD, nephrology following.
- Continue to monitor vital signs, reassess antihypertensives prn.
Acute on chronic anemia, secondary to blood loss
- Hgb 8.3 on admission (baseline appears to be 8s-10s) --> griselda of 6.5 this admission
- S/p 2u pRBC this admission. Epoeitin per nephrology
- Most recent hgb 7.6 06/02/24
- No obvious ongoing blood loss, bruising
- Repeat CBC tomorrow, continue to monitor
Thrombocytopenia- resolved
- Plt 156 normal on admission --> griselda of 63 on 05/25, suspect consumptive
- Heparin discontinued, transitioned to eliquis. HIT panel negative.
- Most recent plt count 177 within normal limits on 06/02/24
Bilateral upper extremity DVT
- Demonstrated on vascular ultrasound 05/21/24
- S/p heparin. Started on Eliquis 05/22/24
- Continue to monitor, reassess prn
TORSTEN on CKD
- Nephrology consulted and hemodialysis initiated 05/20/24
- Continue dialysis per nephrology
Phimosis
- Stevenson placed by urology with dorsal slit
- UA 05/14/24 and 05/29/24 not concerning for UTI
New onset/provoked generalized seizure
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
- S/p Neurology consultation.
- MRI of the brain shows possible acute to subacute infarction
- Continue Keppra 500 mg daily (initiated this admission)
Bacteremia present on admission- resolved
- Blood culture 05/14/24 +Bacteroides intermedius
- Repeat blood culture 05/30/24 no growth (final report)
- S/p IV antibiotics
- Last febrile 05/28/24. Remains afebrile since then.
- Continue to observe off antibiotics
CAD by history
- Echocardiogram 05/14 LVEF greater than 70%. Mild to moderate MR, mild to moderate AR, mild TR.
Abnormal LFTs- resolved
- Gallbladder wall thickening on abd US
- HIDA scan showed no evidence of biliary obstruction
Tracheal aspirate 05/14/24 +serratia marcescens
Persistent metabolic acidosis/lactic acidosis.
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
Solitary kidney; H/o renal CA s/p left nephrectomy
Chronic hydronephrosis
PAD
Code status: Full (confirmed with patient 06/05)
Goals of care reviewed with family 06/02 per prior notes; [facility] discussion ongoing
VTE ppx: Eliquis
Diet: minced/moist per speech
Dispo planning: TBD
Anticipated Discharge: > 48 hours
Subjective/Interval History
-
Date of Service: June 05, 2024
No acute events overnight. No complaints, he says he feels like he is back to his normal self prior to hospitalization. Denies lightheadedness, dizziness, chest pain, shortness of breath, nausea, vomiting. Reports right hand swelling, no RUE pain.
Objective Data
-
Vital Signs:
Vital Signs
Temp Pulse Resp BP Pulse Ox
99.0 F 95 13 159/76 97
06/05/24 07:55 06/05/24 06:00 06/05/24 06:00 06/05/24 06:00 06/05/24 06:00
I&O
06/04/24 06/05/24 06/06/24
06:59 06:59 06:59
Intake Total 840 / 840 1095 / 1095
Output Total 150 / 150 155 / 155
Balance 690 / 690 940 / 940
Review of Systems
-
History Source: Patient
All other systems: Reviewed and negative
Physical Exam
-
General: Well Nourished, No Apparent Distress, Comfortable and Conversant
HEENT: Normocephalic and Atraumatic
Respiratory: Crackles (expiratory crackles bilaterally, anterior lung collins) and Non Labored Respirations
Cardiac: Regular Rhythm and S1/S2
GI: Soft, Nontender, Nondistended and Normal Bowel Sounds
Genito-urinary: Clear Urine and Stevenson
Musculoskeletal: No Clubbing and Edema, Right Upper Extrem (R hand +3 pitting edema)
Skin: Warm, Dry and IV Access / Catheter Site (R chest)
Neuro: Awake and Alert
Psych: Calm
--- NOTE | 2024-06-05 11:57 | W.PN.UPDATE ---
Update Note
Progress Note Update
I saw and evaluated the patient. I reviewed the resident�s note and agree with findings and plan as documented in the resident�s note.
Patient without acute complaints. Denies chest pain or shortness of breath.
Gen: NAD, AAOx2.
Eyes: EOMI, PERRLA, no scleral icterus.
Neck: supple.
CV: RRR, +S1/S2, no m/r/g.
Resp: CTAB anteriorly, no rales, wheezes, or rhonchi.
Abd: +BS, soft, NT, ND
Skin: No rashes. 1+ anasarca
Neuro: CN 2-12 intact, non-focal.
Psych: Normal mood and affect.
Myoedema coma:
-Mentation has improved
-NG tube has been removed
-cont IV Levoxyl
-diet advanced to mince/moist, encourage PO intake, speech following
ESRD: cont HD
B/L UE DVTs: cont Eliquis
[2024-06-05 12:55] LABS: Glucose - Point of Care 187 mg/dl (70-99)
[2024-06-05] MEDS: TYLENOL PO (13:06)
--- NOTE | 2024-06-05 13:07 | PTCARENOTE ---
Assumed care of patient this AM. Patient awake and alert. Garbled speech, difficult to understand at times. Forgetful at times. Patient currently receiving HD. Family in room at bedside.
[2024-06-05] MEDS: MIRALAX 17 GRAMS PO (13:13)
[2024-06-05] MEDS: NOVOLOG FLEXPEN-LOW RESISTANCE 1 UNITS SC (13:13)
[2024-06-05] MEDS: TRUSOPT 2% OPHTHALMIC SOLUTION 1 DROP BOTH EYES ×2 (13:14→20:10)
[2024-06-05] MEDS: RETACRIT 10000 UNITS IV (13:34)
--- NOTE | 2024-06-05 14:46 | W.PN.NEPH.HD ---
Assessment
-
pt seen during HD
vitals stable
UF as tolerated, BP high and edema
more awake and interacting
CVC functions well
likely LP rehab
MWF HD schedule next week
Progress Note - Hemodialysis
-
Date of Service: June 05, 2024
Duration: 30 minutes and 3 hours
Potassium Bath: 2
Calcium Bath: 2.5
Opti-Dialyzer: 160
Ultrafiltration: Other (2-2.5kg)
Blood Flow: 400
Dialysate Flow: 600
Heparin: no
EPO: [id number]
[2024-06-05 17:36] LABS: Glucose - Point of Care 123 mg/dl (70-99)
[2024-06-05] MEDS: XALATAN OPHTHALMIC SOLUTION 1 DROP BOTH EYES (21:59)
[2024-06-05 22:35] LABS: Glucose - Point of Care 108 mg/dl (70-99)
[2024-06-06] VITALS (9 sets, daily range): BP systolic 124–150; BP diastolic 60–94; BMI 18.9; BMI 18.8
[2024-06-06 05:05] LABS: Hematocrit 24.1 % (39.0-52.0); Hemoglobin 7.7 g/dL (13.0-18.0); Mean Corpuscular Hgb 29.5 pg (27.0-31.0); Mean Corpuscular Volume 92.3 fL (80.0-94.0); Mean Platelet Volume 10.3 fL (7.4-10.4); Platelet Count 173 10^3/uL (130-400); Red Blood Cell Count 2.61 10^6/uL (4.70-6.10); Red Cell Dist. Width 21.1 % (11.5-14.5); White Blood Cell Count 7.5 10^3/uL (4.8-10.8)
[2024-06-06] MEDS: TYLENOL 650 MG PO ×2 (05:05→18:13)
[2024-06-06] MEDS: SYNTHROID 75 MCG PO (05:05)
[2024-06-06 05:18] LABS: Blood Urea Nitrogen 35 mg/dl (9-20); Calcium 7.6 mg/dl (8.4-10.2); Carbon Dioxide 26 mmol/L (22-30); Chloride 102 mmol/L (98-107); Estimated Creatinine Clearance 14 ml/min; Glucose 88 mg/dl (70-99); Potassium 4.5 mmol/L (3.5-5.1); Sodium 135 mmol/L (135-145); eGFR 22.12
--- NOTE | 2024-06-06 06:07 | PTCARENOTE ---
Assume care from AM RN. AAOx2 forgetful at times. Drowsy and pleasant. NSR w/ PVC. +2 BLUE edema. Stevenson catheter and rectal trumpet intact. Lung sounds are rhonchi and coarse. nonproductive cough. Oral care and hygiene provided. Wound care provided.
Call skinner within reach and will cont w/ tx plan.
--- NOTE | 2024-06-06 07:54 | W.PN.HOSP.TC ---
Addendum entered and electronically signed by Nomi Wadsworth MD 06/06/24 14:14:
I saw and evaluated the patient. I reviewed the resident�s note and agree with findings and plan as documented in the resident�s note.
No acute complaints. Denies chest pain or shortness of breath.
Gen: NAD, Awake and alert
Eyes: EOMI, PERRLA, no scleral icterus.
Neck: supple.
CV: remains RRR, +S1/S2, no m/r/g.
Resp: remains CTAB anteriorly, no rales, wheezes, or rhonchi.
Abd: +BS, soft, NT, ND
Skin: No rashes. 1+ anasarca
Neuro: CN 2-12 intact, non-focal.
Psych: Normal mood and affect.
Myoedema coma:
-Mentation has improved
-NG tube has been removed and diet advanced to mince/moist, encourage PO intake, speech following (saw today)
-cont IV Levoxyl
ESRD: cont HD (next session tomorrow)
B/L UE DVTs: cont Eliquis
Pt's niece updated at bedside.
Original Note:
Today's Communication/Plan
-
increase IV levothyroxine to 75mcg qd; continue PO diet per speech therapy; downgrade to medsurg; dispo planning ongoing
Assessment / Plan
Assessment / Plan
78yo M with PMHx of severe PAD s/p b/l AKA s/p fem-fem bypass, Hx of prostate CA, CAD s/p PCI, stage 1 sacral pressure wound, glaucoma, labile HTN, Hx of pericardial effusion, R solitary kidney, Hx of retroperitoneal fibrosis, renal artery stenosis,
MGUS. Presented to ED 05/14/24- brought by the family after he was found unresponsive with swollen and bleeding tongue. 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 Extubated on 05/21/24. Was found pneumonia with serratia and bacteremia with bacteroides. Prolonged dysphagia and poor cooperation so NG tube for feeding started
A/P
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
Ventilatory dependent respiratory failure secondary to above- resolved
Intubated for airway protection and secondary to macroglossia- resolved
- TSH 204 on admission --> downtrended to 72 most recently on 05/22/24
- No history of thyroid disease, was started on IV levothyroxine 50mcg on admission (dose increased 06/06)
- Extubated 05/21/24. Protecting airway, no supplemental oxygen requirements now
- S/p corticosteroids, tapered off 05/18
- Mental status significantly improved compared to admission. Now conversant, tolerating PO diet
- Continue IV levothyroxine 75mcg daily
- No longer requiring IMU level care, appropriate for downgrade to [facility] floor
Aspiration syndrome- multifactorial etiology
Hospital acquired pneumonia, likely secondary to aspiration
- Chest xray 05/29/24 demonstrated atelectasis vs resolving pneumonia
- Sputum culture 05/30/24 +E coli, pseudomonas aeruginosa, acinet baumannii/haemolyticus
- ID consulted, s/p 5 day total course of effective antibiotics, off antibiotics since 06/03/24
- Last febrile 05/28/24. Remains afebrile since then.
- Continue to observe off antibiotics
- S/p NGT feeds, dobhoff discontinued 06/04/24. S/p VSE 06/02/24. Speech following, will defer dietary orders to them- now on moist/minced diet
- Continue aspiration precautions. Aspiration events multifactorial in nature, not solely related to meals. Even with optimized dietary modifications, patient remains at risk for aspiration events.
Hypertensive emergency on admission
Essential hypertension
- Initially required cardene drip- discontinued 05/18/24
- Most recent BP 142/77, overnight BPs 136-155/68-80
- Continue carvedilol 6.25mg PO BID and hydralazine 50mg PO TID
- Continue volume management with HD, nephrology following.
- Continue to monitor vital signs, reassess antihypertensives prn.
Acute on chronic anemia, secondary to blood loss
- Hgb 8.3 on admission (baseline appears to be 8s-10s) --> griselda of 6.5 this admission
- S/p 2u pRBC this admission. Epoeitin per nephrology
- Most recent hgb 7.7 this AM, stable
- No obvious ongoing blood loss, bruising
- Repeat CBC tomorrow, continue to monitor
Thrombocytopenia- resolved
- Plt 156 normal on admission --> griselda of 63 on 05/25, suspect consumptive
- Heparin discontinued, transitioned to eliquis. HIT panel negative.
- Plt within normal limits since 05/30 --> plt 173 this AM
Bilateral upper extremity DVT
- Demonstrated on vascular ultrasound 05/21/24
- S/p heparin. Started on Eliquis 05/22/24
- Continue to monitor, reassess prn
TORSTEN on CKD
- Nephrology consulted and hemodialysis initiated 05/20/24
- Continue dialysis per nephrology
- Will need to consider outpatient HD needs for dispo planning
Phimosis s/p alicea placement by urology with dorsal slit
- UA 05/14/24 and 05/29/24 not concerning for UTI
- Maintain alicea
New onset/provoked generalized seizure
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
- S/p Neurology consultation.
- MRI of the brain shows possible acute to subacute infarction
- Continue Keppra 500 mg daily (initiated this admission)
Bacteremia present on admission- resolved
- Blood culture 05/14/24 +Bacteroides intermedius
- Repeat blood culture 05/30/24 no growth (final report)
- S/p IV antibiotics
- Last febrile 05/28/24. Remains afebrile since then.
- Continue to observe off antibiotics
CAD by history
- Echocardiogram 05/14 LVEF greater than 70%. Mild to moderate MR, mild to moderate AR, mild TR.
Abnormal LFTs- resolved
- Gallbladder wall thickening on abd US 05/30/24
- HIDA scan showed no evidence of biliary obstruction 06/01/24
Tracheal aspirate 05/14/24 +serratia marcescens
Persistent metabolic acidosis/lactic acidosis.
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
Solitary kidney; H/o renal CA s/p left nephrectomy
Chronic hydronephrosis
PAD s/p bilateral AKA
Code status: Full (confirmed with patient 06/05)
Goals of care reviewed with family 06/02 per prior notes; [facility] discussion ongoing
VTE ppx: Eliquis
Diet: minced/moist per speech
Dispo planning: TBD; PT/OT rec skilled rehab at hospital discharge (1-2h/d)
Anticipated Discharge: > 48 hours
Subjective/Interval History
-
Date of Service: June 06, 2024
No acute events overnight. He says he 'feels good.' Denies headache, lightheadedness, chest pain, shortness of breath, nausea, vomiting. He is tolerating minced/moist diet. Denies pain/difficulty swallowing. Nonambulatory at baseline- bilateral AKA.
Objective Data
-
Labs:
Laboratory Results
06/06/24
04:46
WBC 7.5
Hgb 7.7 L
Hct 24.1 L
Plt Count 173
Sodium 135
Potassium 4.5
Chloride 102
Carbon Dioxide 26
BUN 35 H
Creatinine 2.8 H
Glucose 88
Calcium 7.6 L
Vital Signs:
Vital Signs
Temp Pulse Resp BP Pulse Ox
98.8 F 92 15 142/77 100
06/06/24 03:00 06/06/24 06:00 06/06/24 06:00 06/06/24 06:00 06/06/24 06:00
I&O
06/05/24 06/06/24 06/07/24
06:59 06:59 06:59
Intake Total 1095 / 1095 865 / 865
Output Total 155 / 155 420 / 420
Balance 940 / 940 445 / 445
Review of Systems
-
History Source: Patient
All other systems: Reviewed and negative
Physical Exam
-
General: Well Nourished, No Apparent Distress, Comfortable, Conversant and Other (sleeping comfortably, easily awoken)
HEENT: Normocephalic and Atraumatic
Respiratory: Crackles (expiratory crackles bilaterally over anterior lung collins) and Non Labored Respirations
Cardiac: Regular Rhythm and S1/S2
GI: Soft, Nontender, Nondistended and Normal Bowel Sounds
Genito-urinary: Clear Urine and [place]
Musculoskeletal: No Clubbing and Edema, Right Upper Extrem (R hand +3 pitting edema)
Skin: Warm, Dry and IV Access / Catheter Site (R chest)
Neuro: Awake and Alert
Psych: Calm
Data Reviewed
-
Labs: Labs Reviewed by me, Discussed with Physician and Discussed with Nurse
[2024-06-06] MEDS: NOVOLOG FLEXPEN-LOW RESISTANCE SC ×2 (08:17→17:42)
[2024-06-06] MEDS: ELIQUIS 5 MG PO ×2 (08:23→21:06)
[2024-06-06] MEDS: COREG 6.25 MG PO ×2 (08:23→21:07)
[2024-06-06] MEDS: APRESOLINE 50 MG PO ×3 (08:23→21:06)
[2024-06-06] MEDS: ALPHAGAN P 0.15% EYE DROPS 1 DROP BOTH EYES (08:23)
[2024-06-06] MEDS: KEPPRA 500 MG IV (08:24)
[2024-06-06] MEDS: TRUSOPT 2% OPHTHALMIC SOLUTION 1 DROP BOTH EYES ×2 (08:24→22:34)
[2024-06-06] MEDS: DESENEX/MITRAZOL/ZEASORB 1 APPLIC TOPICAL ×2 (08:24→21:11)
[2024-06-06] MEDS: MIRALAX 17 GRAMS PO (08:25)
[2024-06-06 08:26] LABS: Glucose - Point of Care 91 mg/dl (70-99)
--- NOTE | 2024-06-06 11:15 | TRANSFER ---
pt tranferred to [facility] on . report given. transferred via pt transport.
[2024-06-06 12:30] LABS: Glucose - Point of Care 153 mg/dl (70-99)
--- NOTE | 2024-06-06 12:36 | W.PN.NEPH.PH ---
Today's Communication / Plan
-
HD tomorrow
Assessment/Plan
-
Impression:
HTN emergency
Suspected seizures with tongue bite
Acute respiratory failure -VDRF
Elevated troponin, most likely non-ischemic cardiac injury
Hx of pericardial effusion s/p pericardiocentesis
Recent abdominal discomfort
TORSTEN on CKD stage 5 -cr mid 4s in Mar
mixed acid base disorder-HAGMA and elevated lactate
Alkalemia with primary rep alkalosis
Macroglossia-severe hypothyroidism
Transaminitis
PAD s/p b/l AKA and femoral stents
Renal artery stenosis of solitary kidney-deemed not a candidate for renal artery revasc with poor vascular
Hx of prostate CA
HLD
Glaucoma
Hx of GIB
CHronic anemia
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
Stage 1 sacral wound
Diverticulosis
Coronary artery disease
Renal cancer with history of left nephrectomy
He also with MGUS supposed to see heme out pt but never happened for BM biopsy
Plan:
HD tomorrow, MWF schedule
likely cannot use UE edema as gauge of volume given DVT
follow hgb, high dose of CAROL
toerating diet and MS seem to at baseline
alicea per urology *dorsal slit)
BP stable
likely LP rehab at d/c
-
-
Date of Service: June 06, 2024
CC / HPI / ROS
-
Chief Complaint:
TORSTEN with CKD4
History of Present Illness:
tolerated HD yesterday
oligoanuric with alicea
BP stable
extubated 05/21
hgb low 7.7-stable
on eliquis for UE DVT
Review of Systems:
no fever
more awake, answered and able to have conversation
offers no complaints
Labs
-
Labs:
WBC 7.5 10^3/uL (4.8-10.8) 06/06/24 04:46
RBC 2.61 10^6/uL (4.70-6.10) L 06/06/24 04:46
Hgb 7.7 g/dL (13.0-18.0) L 06/06/24 04:46
Hct 24.1 % (39.0-52.0) L 06/06/24 04:46
Plt Count 173 10^3/uL (130-400) 06/06/24 04:46
Sodium 135 mmol/L (135-145) 06/06/24 04:46
Potassium 4.5 mmol/L (3.5-5.1) 06/06/24 04:46
Chloride 102 mmol/L (98-107) 06/06/24 04:46
Carbon Dioxide 26 mmol/L (22-30) 06/06/24 04:46
BUN 35 mg/dl (9-20) H 06/06/24 04:46
Creatinine 2.8 mg/dL (0.7-1.3) H 06/06/24 04:46
eGFR 22.12 06/06/24 04:46
Glucose 88 mg/dl (70-99) 06/06/24 04:46
Calcium 7.6 mg/dl (8.4-10.2) L 06/06/24 04:46
Nae-G-Mbaxtlbqtna Pept 6600 pg/ml 05/16/24 03:30
Albumin 2.6 g/dl (3.5-5.0) L 05/31/24 12:34
Physical Exam
-
Vital Signs:
Vital Signs
Temp Pulse Resp BP Pulse Ox
98.6 F 85 20 132/64 98
06/06/24 11:43 06/06/24 11:43 06/06/24 11:43 06/06/24 11:43 06/06/24 11:58
Cardiovascular:: Regular rate and rhythm
Respiratory:: Bilateral: Coarse
Lung Excursion:: Normal
Abdomen:: Nontender and Soft
Alicea Catheter: Yes
Other Findings::
bilat AKA stump
[2024-06-06] MEDS: TYLENOL PO ×2 (12:57→23:32)
[2024-06-06] MEDS: NOVOLOG FLEXPEN-LOW RESISTANCE 1 UNITS SC (13:27)
--- NOTE | 2024-06-06 14:34 | CHAP ---
Visited Mr. Boogie in IMU at 10:45 - he was sleeping, non-responsive. Words of comfort and a prayer offered at bedside. Returned later to [address] [place] [address] with a prayer blanket; Kb still sleeping soundly.
[2024-06-06 17:23] LABS: Glucose - Point of Care 144 mg/dl (70-99)
[2024-06-06 21:27] LABS: Glucose - Point of Care 98 mg/dl (70-99)
[2024-06-06] MEDS: XALATAN OPHTHALMIC SOLUTION 1 DROP BOTH EYES (22:34)
[2024-06-07 05:27] VITALS: BMI 19.1
[2024-06-07] MEDS: TYLENOL 650 MG PO ×3 (05:39→16:59)
[2024-06-07] MEDS: SYNTHROID 75 MCG PO (05:39)
[2024-06-07 07:21] LABS: Hematocrit 24.9 % (39.0-52.0); Hemoglobin 7.9 g/dL (13.0-18.0); Mean Corp Hgb Conc. 31.7 g/dL (33.0-37.0); Mean Corpuscular Hgb 29.5 pg (27.0-31.0); Mean Corpuscular Volume 92.9 fL (80.0-94.0); Mean Platelet Volume 10.4 fL (7.4-10.4); Platelet Count 252 10^3/uL (130-400); Red Blood Cell Count 2.68 10^6/uL (4.70-6.10); Red Cell Dist. Width 21.2 % (11.5-14.5); White Blood Cell Count 7.6 10^3/uL (4.8-10.8)
[2024-06-07 07:22] LABS: Blood Urea Nitrogen 46 mg/dl (9-20); Calcium 7.2 mg/dl (8.4-10.2); Carbon Dioxide 24 mmol/L (22-30); Chloride 100 mmol/L (98-107); Estimated Creatinine Clearance 11 ml/min; Glucose 87 mg/dl (70-99); Potassium 5.4 mmol/L (3.5-5.1); Sodium 135 mmol/L (135-145); eGFR 16.36
[2024-06-07 07:30] VITALS: BP 148/72
[2024-06-07 08:44] LABS: Glucose - Point of Care 89 mg/dl (70-99)
[2024-06-07] MEDS: NOVOLOG FLEXPEN-LOW RESISTANCE SC ×3 (08:45→16:34)
[2024-06-07] MEDS: ALPHAGAN P 0.15% EYE DROPS 1 DROP BOTH EYES (09:15)
[2024-06-07] MEDS: TRUSOPT 2% OPHTHALMIC SOLUTION 1 DROP BOTH EYES ×2 (09:15→20:34)
[2024-06-07] MEDS: COREG PO (09:15)
[2024-06-07] MEDS: APRESOLINE PO (09:15)
[2024-06-07] MEDS: ELIQUIS 5 MG PO ×2 (09:16→20:33)
[2024-06-07] MEDS: KEPPRA 500 MG IV (09:16)
[2024-06-07] MEDS: MIRALAX 17 GRAMS PO (09:16)
[2024-06-07] MEDS: DESENEX/MITRAZOL/ZEASORB 1 APPLIC TOPICAL ×2 (09:18→20:33)
[2024-06-07 11:45] LABS: Glucose - Point of Care 110 mg/dl (70-99)
[2024-06-07] MEDS: RETACRIT 10000 UNITS IV (12:56)
[2024-06-07] MEDS: FLEXBUMIN 25% FOR HEMODIALYSIS 12.5 GRAMS IV ×2 (13:13→14:40)
[2024-06-07] MEDS: MANNITOL 25% 12.5 GRAMS IV ×2 (13:13→14:40)
--- NOTE | 2024-06-07 13:28 | W.PN.NEPH.HD ---
Assessment
-
Seen on HD. no complaints. VSS, access ok
dc planning
Progress Note - Hemodialysis
-
Date of Service: June 07, 2024
Duration: 30 minutes and 3 hours
Potassium Bath: 3
Calcium Bath: 2.5
Opti-Dialyzer: 160
Ultrafiltration: Other (1.5kg)
Blood Flow: 400
Dialysate Flow: 600
Heparin: no
EPO: 42067 units
--- NOTE | 2024-06-07 14:19 | WOUNDNOTE ---
RADHA RN NOTE: Followed up today regarding mattress patient is currently on, was transferred from ICU over the weekend. On Accumax now per nurse Reina who will add air overlay to bed once dialysis is complete.
--- NOTE | 2024-06-07 14:20 | W.PN.ID1 ---
Date of Service
Date of Service: June 07, 2024
Today's Communication
ID service will no longer actively follow this patient please recall for further questions
Assessment / Plan
Fever - resolved
s/p Hospital Acquired Pneumonia
Recent Pneumonia due to Serratia
Bilteral Upper Extremity DVTs
s/p Recent Bacteroides (anaerobic) bacteremia 05/14
Reported allergies to penicillin and ciprofloxacin
TORSTEN on CKD now on HD
- Completed a 5 day total course of effective antibiotics and remains well off of antibiotics
- medium term prognosis guarded with recurrent aspiration - patient at ongoing risk of relapse given known aspiration, precautions being taken
ID service will no longer actively follow this patient please recall for further questions
Chief Complaint
-: Other (pneumonia)
Subjective / Review of Systems
remains afebrile
bp stable
Vital Signs / Physical Exam
Vital Signs
Vital Signs
Temp Pulse Resp BP Pulse Ox
98.3 F 81 16 148/72 100
06/07/24 07:30 06/07/24 07:30 06/07/24 07:30 06/07/24 07:30 06/07/24 10:45
Physical Exam
Constitutional: No Acute Distress and Chronically Ill
Cardiovascular: Regular Rate
Pulmonary: Symmetric and Non Labored
Gastrointestinal: Non Distended
Skin: Dry; Negative Rash or Jaundice
Neurological: Negative Awake
Objective Data
Lab Data
Lab Results
06/07/24 06:43
06/07/24 06:43
PT 17.8 Sec (11.4-14.6) H 05/14/24 09:21
INR 1.48 05/14/24 09:21
APTT 37.6 Sec (23.4-35.0) H 05/14/24 09:21
Estimated Creat Clear 11 ml/min 06/07/24 06:43
Lactic Acid Cancelled 05/14/24 22:45
Total Bilirubin 0.4 mg/dl (0.2-1.3) 05/31/24 12:34
AST 28 U/L (17-59) 05/31/24 12:34
ALT 33 U/L (0-50) 05/31/24 12:34
Alkaline Phosphatase 127 U/L (38-126) H 05/31/24 12:34
Most recent labs reviewed.
Micro Results:
05/30/24 12:27 Blood Culture - Final
Blood/Venous No Growth - Final Report
05/30/24 10:43 Blood Culture - Final
Blood/Venous No Growth - Final Report
05/30/24 23:50 Respiratory Culture - Final
Sputum Escherichia coli
Pseudomonas aeruginosa
Acinet. baumannii/haemolyticus
Gram Stain - Final
05/30/24 16:06 Nasal Screen MRSA (PCR) - Final
Nose MRSA not detected - performed by PCR methodology.
05/29/24 14:55 Influenza Types A & B (NATE) - Final
Nasal Swab Negative for Influenza A & B, NAAT
Negative results must be combined with clinical observations
and patient history.
Nucleic Acid Amplification test (NAAT)performed on the
[employer] platform.
05/14/24 11:12 Blood Culture - Final
Blood/Venous Bacteroides intermedius
Gram Stain - Final
05/14/24 09:21 Blood Culture - Final
Blood/Venous No Growth - Final Report
05/14/24 13:12 Respiratory Culture - Final
Tracheal Aspirate Serratia marcescens
Gram Stain - Final
05/14/24 11:34 MRSA Screen - Final
Nose No Methicillin Resistant Staphylococcus aureus isolated.
05/14/24 13:12 Legionella Urinary Antigen - Final
Urine Negative for Legionella pneumophila Serogroup 1 antigen.
A negative result does not rule out the possiblity of
Legionella infection due to other serogroups or species of
Legionella. Clinical correlation is recommended.
Streptococcus pneumoniae Antigen (M - Final
Negative for Streptococcus pneumoniae antigen.
A negative result does not exclude infection with
Streptococcus pneumoniae. Clinical correlation is
recommended.
05/14/24 09:25 Influenza Types A & B (NATE) - Final
Nasal Swab Negative for Influenza A & B, NAAT
Negative results must be combined with clinical observations
and patient history.
Nucleic Acid Amplification test (NAAT)performed on the
[employer] platform.
HIDA: patent cystic and CBD
[2024-06-07 15:00] VITALS: BP 155/65
[2024-06-07 15:20] LABS: Glucose - Point of Care 116 mg/dl (70-99)
--- NOTE | 2024-06-07 15:38 | CM ---
Addendum entered by Billie Barnett, RN 06/07/24 16:19:
Patient's daughter left message with CM department that she has selected [facility].
Original Note:
Reviewed the chart notes. Attached HD flow sheets and CM referral to referrals in [facility]. CM continues to be available to patient/family and is monitoring medical plan for needs at discharge.
Plan: Discharge to SNF/rehab once medically stable. No precert required.
[2024-06-07] MEDS: HEPARIN 3900 UNITS INTRACATH (16:13)
--- NOTE | 2024-06-07 16:31 | W.PN.HOSP.TC ---
Today's Communication/Plan
-
EGD.
Continue levothyroxine.
Continue diet with aspiration precaution.
Initiate placement to [facility] facility.
Assessment / Plan
Assessment / Plan
78yo M with PMHx of severe PAD s/p b/l AKA s/p fem-fem bypass, Hx of prostate CA, CAD s/p PCI, stage 1 sacral pressure wound, glaucoma, labile HTN, Hx of pericardial effusion, R solitary kidney, Hx of retroperitoneal fibrosis, renal artery stenosis,
MGUS. Presented to ED 05/14/24- brought by the family after he was found unresponsive with swollen and bleeding tongue. 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 Extubated on 05/21/24. Was found pneumonia with serratia and bacteremia with bacteroides. Prolonged dysphagia and poor cooperation so NG tube for feeding started
Impression:
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
Ventilatory dependent respiratory failure secondary to above
Intubated for airway protection and secondary to macroglossia
Nosocomial/aspiration pneumonia with Serratia in sputum
Bacteremia
Hypertensive emergency.
Tongue laceration and bleeding.
Acute kidney injury on CKD.
Persistent metabolic acidosis/lactic acidosis.
Provoked generalized seizure.
Acute bilateral upper extremity DVT
Abnormal LFT.
Thrombocytopenia
Conditions prior to admission:
Chronic kidney disease
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
Solitary kidney.
Chronic hydronephrosis.
CAD.
Essential hypertension
PAD.
Renal CA with history of left nephrectomy.
Plan:
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
Ventilatory dependent respiratory failure secondary to above- resolved
Intubated for airway protection and secondary to macroglossia- resolved
- TSH 204 on admission --> downtrended to 72 most recently on 05/22/24
- No history of thyroid disease, was started on IV levothyroxine 50mcg on admission (dose increased 06/06)
- Extubated 05/21/24. Protecting airway, no supplemental oxygen requirements now
- S/p corticosteroids, tapered off 05/18
- Mental status significantly improved compared to admission. Now conversant, tolerating PO diet
- Continue IV levothyroxine 75mcg daily
- No longer requiring IMU level care, appropriate for downgrade to [facility] floor
Aspiration syndrome- multifactorial etiology
Hospital acquired pneumonia, likely secondary to aspiration
- Chest xray 05/29/24 demonstrated atelectasis vs resolving pneumonia
- Sputum culture 05/30/24 +E coli, pseudomonas aeruginosa, acinet baumannii/haemolyticus
- ID consulted, s/p 5 day total course of effective antibiotics, off antibiotics since 06/03/24
- Last febrile 05/28/24. Remains afebrile since then.
- Continue to observe off antibiotics
- S/p NGT feeds, dobhoff discontinued 06/04/24. S/p VSE 06/02/24. Speech following, will defer dietary orders to them- now on moist/minced diet
- Continue aspiration precautions. Aspiration events multifactorial in nature, not solely related to meals. Even with optimized dietary modifications, patient remains at risk for aspiration events.
Hypertensive emergency on admission
Essential hypertension
- Initially required cardene drip- discontinued 05/18/24
- Most recent BP 142/77, overnight BPs 136-155/68-80
- Continue carvedilol 6.25mg PO BID and hydralazine 50mg PO TID
- Continue volume management with HD, nephrology following.
- Continue to monitor vital signs, reassess antihypertensives prn.
Acute on chronic anemia, secondary to blood loss
- Hgb 8.3 on admission (baseline appears to be 8s-10s) --> griselda of 6.5 this admission
- S/p 2u pRBC this admission. Epoeitin per nephrology
- Most recent hgb 7.7 this AM, stable
- No obvious ongoing blood loss, bruising
- Repeat CBC tomorrow, continue to monitor
Thrombocytopenia- resolved
- Plt 156 normal on admission --> griselda of 63 on 05/25, suspect consumptive
- Heparin discontinued, transitioned to eliquis. HIT panel negative.
- Plt within normal limits since 05/30 --> plt 173 this AM
Bilateral upper extremity DVT
- Demonstrated on vascular ultrasound 05/21/24
- S/p heparin. Started on Eliquis 05/22/24
- Continue to monitor, reassess prn
TORSTEN on CKD
- Nephrology consulted and hemodialysis initiated 05/20/24
- Continue dialysis per nephrology
- Will need to consider outpatient HD needs for dispo planning
Phimosis s/p ailcea placement by urology with dorsal slit
- UA 05/14/24 and 05/29/24 not concerning for UTI
- Maintain alicea
New onset/provoked generalized seizure
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
- S/p Neurology consultation.
- MRI of the brain shows possible acute to subacute infarction
- Continue Keppra 500 mg daily (initiated this admission)
Bacteremia present on admission- resolved
- Blood culture 05/14/24 +Bacteroides intermedius
- Repeat blood culture 05/30/24 no growth (final report)
- S/p IV antibiotics
- Last febrile 05/28/24. Remains afebrile since then.
- Continue to observe off antibiotics
CAD by history
- Echocardiogram 05/14 LVEF greater than 70%. Mild to moderate MR, mild to moderate AR, mild TR.
Abnormal LFTs- resolved
- Gallbladder wall thickening on abd US 05/30/24
- HIDA scan showed no evidence of biliary obstruction 06/01/24
Tracheal aspirate 05/14/24 +serratia marcescens
Persistent metabolic acidosis/lactic acidosis.
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
Solitary kidney; H/o renal CA s/p left nephrectomy
Chronic hydronephrosis
PAD s/p bilateral AKA
Code status: Full (confirmed with patient 06/05)
Goals of care reviewed with family 06/02 per prior notes; [facility] discussion ongoing
VTE ppx: Eliquis
Diet: minced/moist per speech
Dispo planning: TBD; PT/OT rec skilled rehab at hospital discharge (1-2h/d)
Anticipated Discharge: 24 - 48 hours
Subjective/Interval History
-
Date of Service: June 07, 2024
Objective Data
-
Labs:
Laboratory Results
06/07/24
06:43
WBC 7.6
Hgb 7.9 L
Hct 24.9 L
Plt Count 252 D
Sodium 135
Potassium 5.4 H
Chloride 100
Carbon Dioxide 24
BUN 46 H
Creatinine 3.6 H
Glucose 87
Calcium 7.2 L
Vital Signs:
Vital Signs
Temp Pulse Resp BP Pulse Ox
98.3 F 81 16 148/72 100
06/07/24 07:30 06/07/24 07:30 06/07/24 07:30 06/07/24 07:30 06/07/24 10:45
I&O
06/06/24 06/07/24 06/08/24
06:59 06:59 06:59
Intake Total 865 / 865 120 / 120
Output Total 420 / 420 50 / 50 50 / 50
Balance 445 / 445 70 / 70 -50 / -50
Physical Exam
-
General: Well Nourished, No Apparent Distress, Comfortable, Conversant and Other (sleeping comfortably, easily awoken)
HEENT: Normocephalic and Atraumatic
Respiratory: Crackles (expiratory crackles bilaterally over anterior lung collins) and Non Labored Respirations
Cardiac: Regular Rhythm and S1/S2
GI: Soft, Nontender, Nondistended and Normal Bowel Sounds
Genito-urinary: Clear Urine and Alicea
Musculoskeletal: No Clubbing and Edema, Right Upper Extrem (R hand +3 pitting edema)
Skin: Warm, Dry and IV Access / Catheter Site (R chest)
Neuro: Awake and Alert
Psych: Calm
[2024-06-07 16:38] LABS: Glucose - Point of Care 102 mg/dl (70-99)
[2024-06-07] MEDS: APRESOLINE 50 MG PO ×2 (16:59→20:32)
[2024-06-07] MEDS: COREG 6.25 MG PO (20:32)
[2024-06-07 22:18] LABS: Glucose - Point of Care 170 mg/dl (70-99)
[2024-06-07 23:03] VITALS: BP 159/79
[2024-06-08] MEDS: XALATAN OPHTHALMIC SOLUTION 1 DROP BOTH EYES ×2 (00:17→22:05)
[2024-06-08] MEDS: TYLENOL 650 MG PO ×4 (00:20→23:24)
[2024-06-08] MEDS: SYNTHROID 75 MCG PO (05:32)
[2024-06-08 05:47] VITALS: BMI 19.0
[2024-06-08 07:30] VITALS: BP 155/77
[2024-06-08 07:37] LABS: Glucose - Point of Care 95 mg/dl (70-99)
[2024-06-08] MEDS: NOVOLOG FLEXPEN-LOW RESISTANCE SC ×2 (07:56→12:42)
[2024-06-08] MEDS: COREG 6.25 MG PO ×2 (08:56→21:12)
[2024-06-08] MEDS: APRESOLINE 50 MG PO ×3 (08:56→22:05)
[2024-06-08] MEDS: KEPPRA 500 MG IV (08:56)
[2024-06-08] MEDS: ELIQUIS 5 MG PO ×2 (08:56→21:12)
[2024-06-08] MEDS: ALPHAGAN P 0.15% EYE DROPS 1 DROP BOTH EYES (08:57)
[2024-06-08] MEDS: MIRALAX 17 GRAMS PO (08:57)
[2024-06-08] MEDS: DESENEX/MITRAZOL/ZEASORB 1 APPLIC TOPICAL ×2 (08:57→21:12)
[2024-06-08] MEDS: TRUSOPT 2% OPHTHALMIC SOLUTION 1 DROP BOTH EYES ×2 (08:58→21:11)
[2024-06-08 10:34] LABS: Hematocrit 24.8 % (39.0-52.0); Hemoglobin 7.8 g/dL (13.0-18.0); Mean Corp Hgb Conc. 31.5 g/dL (33.0-37.0); Mean Corpuscular Hgb 28.8 pg (27.0-31.0); Mean Corpuscular Volume 91.5 fL (80.0-94.0); Mean Platelet Volume 10.5 fL (7.4-10.4); Platelet Count 255 10^3/uL (130-400); Red Blood Cell Count 2.71 10^6/uL (4.70-6.10); Red Cell Dist. Width 21.9 % (11.5-14.5); White Blood Cell Count 7.9 10^3/uL (4.8-10.8)
--- NOTE | 2024-06-08 10:41 | W.PN.NEPH.PH ---
Today's Communication / Plan
-
HD tomorrow
Assessment/Plan
-
Impression:
HTN emergency
Suspected seizures with tongue bite
Acute respiratory failure -VDRF
Elevated troponin, most likely non-ischemic cardiac injury
Hx of pericardial effusion s/p pericardiocentesis
Recent abdominal discomfort
TORSTEN on CKD stage 5 -cr mid 4s in Mar
mixed acid base disorder-HAGMA and elevated lactate
Alkalemia with primary rep alkalosis
Macroglossia-severe hypothyroidism
Transaminitis
PAD s/p b/l AKA and femoral stents
Renal artery stenosis of solitary kidney-deemed not a candidate for renal artery revasc with poor vascular
Hx of prostate CA
HLD
Glaucoma
Hx of GIB
CHronic anemia
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
Stage 1 sacral wound
Diverticulosis
Coronary artery disease
Renal cancer with history of left nephrectomy
He also with MGUS supposed to see heme out pt but never happened for BM biopsy
Plan:
HD tomorrow, MWF schedule
cannot use UE edema as gauge of volume given DVT
follow hgb, on CAROL
d/c alicea (cleared with urology)
dc planning
-
-
Date of Service: June 08, 2024
CC / HPI / ROS
-
Chief Complaint:
TORSTEN with CKD4
History of Present Illness:
tolerated HD yesterday
oligoanuric with alicea
BP stable
on eliquis for UE DVT
Review of Systems:
no fever
no CP/SOB
offers no complaints
Labs
-
Labs:
WBC 7.9 10^3/uL (4.8-10.8) 06/08/24 10:04
RBC 2.71 10^6/uL (4.70-6.10) L 06/08/24 10:04
Hgb 7.8 g/dL (13.0-18.0) L 06/08/24 10:04
Hct 24.8 % (39.0-52.0) L 06/08/24 10:04
Plt Count 255 10^3/uL (130-400) 06/08/24 10:04
eGFR 16.36 06/07/24 06:43
Lbp-K-Qeizbmygjnv Pept 6600 pg/ml 05/16/24 03:30
Albumin 2.6 g/dl (3.5-5.0) L 05/31/24 12:34
Physical Exam
-
Vital Signs:
Vital Signs
Temp Pulse Resp BP Pulse Ox
98.8 F 89 18 155/77 100
06/08/24 07:30 06/08/24 08:56 06/08/24 07:30 06/08/24 08:56 06/08/24 07:30
Cardiovascular:: Regular rate and rhythm
Respiratory:: Bilateral: Coarse
Lung Excursion:: Normal
Abdomen:: Nontender and Soft
Bowel Sounds:: Normal
Extremity Edema:: +2: Bilateral:
[2024-06-08 10:46] LABS: Blood Urea Nitrogen 27 mg/dl (9-20); Calcium 7.4 mg/dl (8.4-10.2); Carbon Dioxide 28 mmol/L (22-30); Chloride 96 mmol/L (98-107); Estimated Creatinine Clearance 16 ml/min; Glucose 142 mg/dl (70-99); Potassium 4.3 mmol/L (3.5-5.1); Sodium 134 mmol/L (135-145); eGFR 24.17
[2024-06-08 12:39] LABS: Glucose - Point of Care 114 mg/dl (70-99)
--- NOTE | 2024-06-08 12:43 | CM ---
Physician texted CM that patient was for discharge tomorrow. CM called to [facility] to confirm bed availability and per Jackie patient accepted and bed available tomorrow. CM called to Yumiko- patient family member and confirmed plan. Yumiko
indicated that she was in agreement with plan and would visit patient to confirm that he felt he was ready. CM will send IMM form to patient family member Yumiko at [email or web address]. Patient family/sister also asked that 2 copies be placed in
room for her to review. CM will set up ambulance and transfer forms. CM confirmed plan with liaison and she requested nurse call [phone]/fax [phone] tomorrow for transition of care. CM will continue to follow for discharge planning needs.
Plan; transfer to SNF tomorrow.
[2024-06-08] MEDS: TYLENOL PO (13:42)
--- NOTE | 2024-06-08 14:34 | W.PN.HOSP.TC ---
Today's Communication/Plan
-
Tolerates oral intake
Monitor for aspiration.
HD as per schedule
Discharge plan
Assessment / Plan
Assessment / Plan
78yo M with PMHx of severe PAD s/p b/l AKA s/p fem-fem bypass, Hx of prostate CA, CAD s/p PCI, stage 1 sacral pressure wound, glaucoma, labile HTN, Hx of pericardial effusion, R solitary kidney, Hx of retroperitoneal fibrosis, renal artery stenosis,
MGUS. Presented to ED 05/14/24- brought by the family after he was found unresponsive with swollen and bleeding tongue. 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 Extubated on 05/21/24. Was found pneumonia with serratia and bacteremia with bacteroides. Prolonged dysphagia and poor cooperation so NG tube for feeding started
Impression:
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
Ventilatory dependent respiratory failure secondary to above
Intubated for airway protection and secondary to macroglossia
Nosocomial/aspiration pneumonia with Serratia in sputum
Bacteremia
Hypertensive emergency.
Tongue laceration and bleeding.
Acute kidney injury on CKD.
Persistent metabolic acidosis/lactic acidosis.
Provoked generalized seizure.
Acute bilateral upper extremity DVT
Abnormal LFT.
Thrombocytopenia
Conditions prior to admission:
Chronic kidney disease
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
Solitary kidney.
Chronic hydronephrosis.
CAD.
Essential hypertension
PAD.
Renal CA with history of left nephrectomy.
Plan:
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
Ventilatory dependent respiratory failure secondary to above- resolved
Intubated for airway protection and secondary to macroglossia- resolved
- TSH 204 on admission --> downtrended to 72 most recently on 05/22/24
- No history of thyroid disease, was started on IV levothyroxine 50mcg on admission (dose increased 06/06)
- Extubated 05/21/24. Protecting airway, no supplemental oxygen requirements now
- S/p corticosteroids, tapered off 05/18
- Mental status significantly improved compared to admission. Now conversant, tolerating PO diet
- Continue IV levothyroxine 75mcg daily
- No longer requiring IMU level care, appropriate for downgrade to [facility] floor
Aspiration syndrome- multifactorial etiology
Hospital acquired pneumonia, likely secondary to aspiration
- Chest xray 05/29/24 demonstrated atelectasis vs resolving pneumonia
- Sputum culture 05/30/24 +E coli, pseudomonas aeruginosa, acinet baumannii/haemolyticus
- ID consulted, s/p 5 day total course of effective antibiotics, off antibiotics since 06/03/24
- Last febrile 05/28/24. Remains afebrile since then.
- Continue to observe off antibiotics
- S/p NGT feeds, dobhoff discontinued 06/04/24. S/p VSE 06/02/24. Speech following, will defer dietary orders to them- now on moist/minced diet
- Continue aspiration precautions. Aspiration events multifactorial in nature, not solely related to meals. Even with optimized dietary modifications, patient remains at risk for aspiration events.
Hypertensive emergency on admission
Essential hypertension
- Initially required cardene drip- discontinued 05/18/24
- Most recent BP 142/77, overnight BPs 136-155/68-80
- Continue carvedilol 6.25mg PO BID and hydralazine 50mg PO TID
- Continue volume management with HD, nephrology following.
- Continue to monitor vital signs, reassess antihypertensives prn.
Acute on chronic anemia, secondary to blood loss
- Hgb 8.3 on admission (baseline appears to be 8s-10s) --> griselda of 6.5 this admission
- S/p 2u pRBC this admission. Epoeitin per nephrology
- Most recent hgb 7.7 this AM, stable
- No obvious ongoing blood loss, bruising
- Repeat CBC tomorrow, continue to monitor
Thrombocytopenia- resolved
- Plt 156 normal on admission --> griselda of 63 on 05/25, suspect consumptive
- Heparin discontinued, transitioned to eliquis. HIT panel negative.
- Plt within normal limits since 05/30 --> plt 173 this AM
Bilateral upper extremity DVT
- Demonstrated on vascular ultrasound 05/21/24
- S/p heparin. Started on Eliquis 05/22/24
- Continue to monitor, reassess prn
TORSTEN on CKD
- Nephrology consulted and hemodialysis initiated 05/20/24
- Continue dialysis per nephrology
- Will need to consider outpatient HD needs for dispo planning
Phimosis s/p alicea placement by urology with dorsal slit
- UA 05/14/24 and 05/29/24 not concerning for UTI
- Maintain alicea
New onset/provoked generalized seizure
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
- S/p Neurology consultation.
- MRI of the brain shows possible acute to subacute infarction
- Continue Keppra 500 mg daily (initiated this admission)
Bacteremia present on admission- resolved
- Blood culture 05/14/24 +Bacteroides intermedius
- Repeat blood culture 05/30/24 no growth (final report)
- S/p IV antibiotics
- Last febrile 05/28/24. Remains afebrile since then.
- Continue to observe off antibiotics
CAD by history
- Echocardiogram 05/14 LVEF greater than 70%. Mild to moderate MR, mild to moderate AR, mild TR.
Abnormal LFTs- resolved
- Gallbladder wall thickening on abd US 05/30/24
- HIDA scan showed no evidence of biliary obstruction 06/01/24
Tracheal aspirate 05/14/24 +serratia marcescens
Persistent metabolic acidosis/lactic acidosis.
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
Solitary kidney; H/o renal CA s/p left nephrectomy
Chronic hydronephrosis
PAD s/p bilateral AKA
Code status: Full (confirmed with patient 06/05)
Goals of care reviewed with family 06/02 per prior notes; [facility] discussion ongoing
VTE ppx: Eliquis
Diet: minced/moist per speech
Dispo planning: TBD; PT/OT rec skilled rehab at hospital discharge (1-2h/d)
Anticipated Discharge: 24 - 48 hours
Subjective/Interval History
-
Date of Service: June 08, 2024
Objective Data
-
Labs:
Laboratory Results
06/08/24
10:04
WBC 7.9
Hgb 7.8 L
Hct 24.8 L
Plt Count 255
Sodium 134 L
Potassium 4.3
Chloride 96 L
Carbon Dioxide 28
BUN 27 H
Creatinine 2.6 H
Glucose 142 H
Calcium 7.4 L
Vital Signs:
Vital Signs
Temp Pulse Resp BP Pulse Ox
98.8 F 89 18 155/77 100
06/08/24 07:30 06/08/24 08:56 06/08/24 07:30 06/08/24 08:56 06/08/24 07:30
I&O
06/07/24 06/08/24 06/09/24
06:59 06:59 06:59
Intake Total 120 / 120 480 / 480
Output Total 50 / 50 100 / 100
Balance 70 / 70 380 / 380
Physical Exam
-
General: Well Nourished, No Apparent Distress, Comfortable, Conversant and Other (sleeping comfortably, easily awoken)
HEENT: Normocephalic and Atraumatic
Respiratory: Crackles (expiratory crackles bilaterally over anterior lung collins) and Non Labored Respirations
Cardiac: Regular Rhythm and S1/S2
GI: Soft, Nontender, Nondistended and Normal Bowel Sounds
Genito-urinary: Clear Urine and [place]
Musculoskeletal: No Clubbing and Edema, Right Upper Extrem (R hand +3 pitting edema)
Skin: Warm, Dry and IV Access / Catheter Site (R chest)
Neuro: Awake and Alert
Psych: Calm
[2024-06-08 15:25] VITALS: BP 152/75
[2024-06-08 17:22] LABS: Glucose - Point of Care 161 mg/dl (70-99)
[2024-06-08] MEDS: NOVOLOG FLEXPEN-LOW RESISTANCE 1 UNITS SC (17:32)
--- NOTE | 2024-06-08 18:31 | PTCARENOTE ---
removed pt alicea this shift, HD scheduled for tomorrow, no time yet, pt oliguric/anuric, had 100 ml in the alicea and BS for 59 ml this sfyternoon, not able to urinate. Had a large soft BM
[2024-06-08 21:19] LABS: Glucose - Point of Care 95 mg/dl (70-99)
[2024-06-08 23:20] VITALS: BP 156/76
[2024-06-09] MEDS: SYNTHROID 75 MCG PO (05:39)
[2024-06-09] MEDS: TYLENOL 650 MG PO (05:39)
[2024-06-09 06:00] VITALS: BMI 19.2
[2024-06-09 07:25] VITALS: BP 127/66
[2024-06-09 07:42] LABS: Glucose - Point of Care 87 mg/dl (70-99)
[2024-06-09] MEDS: NOVOLOG FLEXPEN-LOW RESISTANCE SC ×3 (07:45→16:21)
[2024-06-09 08:11] LABS: Hematocrit 24.3 % (39.0-52.0); Hemoglobin 7.6 g/dL (13.0-18.0); Mean Corp Hgb Conc. 31.3 g/dL (33.0-37.0); Mean Corpuscular Hgb 28.7 pg (27.0-31.0); Mean Corpuscular Volume 91.7 fL (80.0-94.0); Mean Platelet Volume 10.2 fL (7.4-10.4); Platelet Count 287 10^3/uL (130-400); Red Blood Cell Count 2.65 10^6/uL (4.70-6.10); Red Cell Dist. Width 21.4 % (11.5-14.5); White Blood Cell Count 7.2 10^3/uL (4.8-10.8)
[2024-06-09 08:37] LABS: Blood Urea Nitrogen 39 mg/dl (9-20); Calcium 7.2 mg/dl (8.4-10.2); Carbon Dioxide 27 mmol/L (22-30); Chloride 96 mmol/L (98-107); Estimated Creatinine Clearance 12 ml/min; Glucose 85 mg/dl (70-99); Potassium 4.5 mmol/L (3.5-5.1); Sodium 133 mmol/L (135-145); eGFR 17.52
[2024-06-09] MEDS: APRESOLINE PO ×2 (08:40→15:36)
[2024-06-09] MEDS: COREG PO (08:40)
[2024-06-09] MEDS: DESENEX/MITRAZOL/ZEASORB 1 APPLIC TOPICAL (08:41)
[2024-06-09] MEDS: ELIQUIS 5 MG PO (08:42)
[2024-06-09] MEDS: MIRALAX 17 GRAMS PO (08:42)
[2024-06-09] MEDS: TRUSOPT 2% OPHTHALMIC SOLUTION 1 DROP BOTH EYES (08:42)
[2024-06-09] MEDS: ALPHAGAN P 0.15% EYE DROPS 1 DROP BOTH EYES (08:43)
[2024-06-09] MEDS: RETACRIT 10000 UNITS IV (08:51)
[2024-06-09] MEDS: RETACRIT 2000 UNITS IV (08:52)
--- NOTE | 2024-06-09 10:19 | W.PN.NEPH.HD ---
Addendum entered and electronically signed by Palak Hernandez MD 06/10/24 14:47:
Pt is now ESRD status
Original Note:
Assessment
-
pt seen during HD
vitals stable
UF as tolerates
CVC functions well
renal diet and FR
d/c plan
Progress Note - Hemodialysis
-
Date of Service: June 09, 2024
Duration: 30 minutes and 3 hours
Potassium Bath: 3
Calcium Bath: 2.5
Opti-Dialyzer: 160
Ultrafiltration: Other (2kg)
Blood Flow: 400
Dialysate Flow: 600
Heparin: no
EPO: [id number]
[2024-06-09] MEDS: HEPARIN 4300 UNITS INTRACATH (10:56)
[2024-06-09] MEDS: KEPPRA 500 MG IV (11:40)
[2024-06-09] MEDS: TYLENOL PO ×2 (11:40→11:55)
--- NOTE | 2024-06-09 11:54 | CM ---
Reviewed the chart notes and spoke with the patient's niece Yumiko via telephone. Yumiko in agreement with [facility] at discharge. Provided Max with [employer] contact information for post rehab stay. CM continues to be available to
patient/family and is monitoring medical plan for needs at discharge.
Plan: Discharge to [facility] when medically stable.
Call report to: [phone]
Fax report to: [phone]
Medical necessity and transport forms completed by prior CM and are on the chart.
[2024-06-09 11:55] LABS: Glucose - Point of Care 78 mg/dl (70-99)
--- NOTE | 2024-06-09 13:34 | W.DS.TRANS ---
DC Summary - [employer]
-
Discharge Instructions:
Discharge Diagnosis/Procedures Impression:
Metabolic encephalopathy secondary to myxedema
coma.
Ventilatory dependent respiratory failure
secondary to above
Intubated for airway protection and secondary to
macroglossia
Nosocomial/aspiration pneumonia with Serratia in
sputum
Bacteremia
Hypertensive emergency.
Tongue laceration and bleeding.
Acute kidney injury on CKD.
Persistent metabolic acidosis/lactic acidosis.
Provoked generalized seizure.
Acute bilateral upper extremity DVT
Abnormal LFT.
Thrombocytopenia
Conditions prior to admission:
Chronic kidney disease
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
Solitary kidney.
Chronic hydronephrosis.
CAD.
Essential hypertension
PAD.
Renal CA with history of left nephrectomy.
Diet Regular
Additional Diets Minced and Moist with thin liquids
Blood Work TSH in 4-6 weeks
Others Tests US Doppler of UE to follow up with DVT in 4-6
weeks
Wound Care penile silk sutures should be removed on or
after 05/30/2024
Instructions:
Stand-Alone Forms:
Changes to Home Medications: Yes
Discharge Medications:
DC Medications w/original date entered in [employer]
aspirin 81 mg tablet,delayed release 81 mg PO DAILY Heart disease/condition #0 tabs 03/26/24
carvedilol 6.25 mg tablet 6.25 mg PO BID Blood pressure #60 tabs 03/26/24
rosuvastatin 10 mg tablet 10 mg PO DAILY High cholesterol #0 tabs 03/26/24
brimonidine 0.15 % eye drops 1 drp BOTH EYES DAILY Eye Condition 05/14/24
dorzolamide 2 % eye drops 1 drp BOTH EYES BID Eye Condition 05/14/24
latanoprost 0.005 % eye drops 1 drp BOTH EYES HS Eye condition 05/14/24
miconazole nitrate 2 % topical powder (Miconazorb AF) 1 applic topical BID groin 05/14/24
apixaban 5 mg tablet (Eliquis) 5 mg PO BID #60 tabs 06/09/24
hydralazine 25 mg tablet 50 mg (2 x 25 mg) PO TID #120 tabs 06/09/24
levetiracetam 500 mg tablet (Keppra) 500 mg PO BID #60 tabs 06/09/24
levothyroxine 75 mcg tablet 75 mcg PO DAILY @ 0600 #30 tabs 06/09/24
polyethylene glycol 3350 17 gram oral powder packet (HealthyLax) 17 g PO DAILY #30 ea 06/09/24
Home Medication Changes
Levothyroxine initiated
Keppra initiated
Eliquis initiated for BL UE DVT
Pending Results: No
[2024-06-09 14:37] VITALS: BP 136/79
[2024-06-09 16:13] LABS: Glucose - Point of Care 123 mg/dl (70-99)
--- NOTE | 2024-06-09 16:58 | PTCARENOTE ---
Patient discharged to [facility], transported by EMS. This RN called report to Kalyn at facility. R PICC removed by IV nurse. Vitals and accucheck taken prior to DC. Belongings gathered in room and handed to transport team along with discharge
packet. Glasses on patient.
== END 2024-06-09 16:30 | DRG 80 ==
LOC: 2 NORTH 10:24
PROVIDERS: Family Medicine; Internal Medicine Critical Care Medicine; Nurse Practitioner Adult Health; Nurse Practitioner Family; Radiology Diagnostic Radiology; Specialist; Student in an Organized Health Care Education/Training Program; ADMITTING PHYSICIAN Internal Medicine; ATTENDING PHYSICIAN Internal Medicine; CONSULT PHYSICIAN Internal Medicine; CONSULT PHYSICIAN Internal Medicine Endocrinology, Diabetes & Metabolism; CONSULT PHYSICIAN Psychiatry & Neurology Neurology; CONSULT PHYSICIAN Specialist; CONSULT PHYSICIAN Student in an Organized Health Care Education/Training Program; EMERGENCY PHYSICIAN Emergency Medicine; OTHER PHYSICIAN Internal Medicine
PROC: 5A1955Z Respiratory Ventilation, Greater than 96 Consecutive Hours (ICD-10-PCS; 2024-05-14)
PROC: 02HV33Z Insertion of Infusion Device into Superior Vena Cava, Percutaneous Approach (ICD-10-PCS; 2024-05-14)
PROC: 0BH17EZ Insertion of Endotracheal Airway into Trachea, Via Natural or Artificial Opening (ICD-10-PCS; 2024-05-14)
PROC: 05H633Z Insertion of Infusion Device into Left Subclavian Vein, Percutaneous Approach (ICD-10-PCS; 2024-05-14)
PROC: 0D9670Z Drainage of Stomach with Drainage Device, Via Natural or Artificial Opening (ICD-10-PCS; 2024-05-14)
PROC: 30233N1 Transfusion of Nonautologous Red Blood Cells into Peripheral Vein, Percutaneous Approach (ICD-10-PCS; 2024-05-16)
PROC: 02H633Z Insertion of Infusion Device into Right Atrium, Percutaneous Approach (ICD-10-PCS; 2024-05-20)
PROC: 5A1D70Z Performance of Urinary Filtration, Intermittent, Less than 6 Hours Per Day (ICD-10-PCS; 2024-05-20)
PROC: 0JH63XZ Insertion of Tunneled Vascular Access Device into Chest Subcutaneous Tissue and Fascia, Percutaneous Approach (ICD-10-PCS; 2024-05-20)
DX: E03.5 Myxedema coma (principal); G93.41 Metabolic encephalopathy; J96.00 Acute respiratory failure, unspecified whether with hypoxia or hypercapnia; J69.0 Pneumonitis due to inhalation of food and vomit; J15.69 Pneumonia due to other Gram-negative bacteria; J15.5 Pneumonia due to Escherichia coli; J15.1 Pneumonia due to Pseudomonas; N18.6 End stage renal disease; I16.1 Hypertensive emergency; I12.0 Hypertensive chronic kidney disease with stage 5 chronic kidney disease or end stage renal disease; E87.20 Acidosis, unspecified; N17.9 Acute kidney failure, unspecified; I5A Non-ischemic myocardial injury (non-traumatic); N13.30 Unspecified hydronephrosis; E87.3 Alkalosis; D80.8 Other immunodeficiencies with predominantly antibody defects; D68.9 Coagulation defect, unspecified; E87.4 Mixed disorder of acid-base balance; I82.623 Acute embolism and thrombosis of deep veins of upper extremity, bilateral; I25.10 Atherosclerotic heart disease of native coronary artery without angina pectoris; E11.22 Type 2 diabetes mellitus with diabetic chronic kidney disease; E11.51 Type 2 diabetes mellitus with diabetic peripheral angiopathy without gangrene; E78.00 Pure hypercholesterolemia, unspecified; D63.1 Anemia in chronic kidney disease; L89.151 Pressure ulcer of sacral region, stage 1; R56.9 Unspecified convulsions; S01.552A Open bite of oral cavity, initial encounter; K14.8 Other diseases of tongue; E87.70 Fluid overload, unspecified; D69.6 Thrombocytopenia, unspecified; E03.9 Hypothyroidism, unspecified; D89.2 Hypergammaglobulinemia, unspecified; I08.0 Rheumatic disorders of both mitral and aortic valves; N47.1 Phimosis; N40.0 Benign prostatic hyperplasia without lower urinary tract symptoms; Z95.5 Presence of coronary angioplasty implant and graft; Z91.041 Radiographic dye allergy status; Z90.5 Acquired absence of kidney; Z89.612 Acquired absence of left leg above knee; Z89.611 Acquired absence of right leg above knee; Z88.1 Allergy status to other antibiotic agents; Z88.0 Allergy status to penicillin; Z85.528 Personal history of other malignant neoplasm of kidney; Z85.46 Personal history of malignant neoplasm of prostate; Z79.899 Other long term (current) drug therapy; Z95.820 Peripheral vascular angioplasty status with implants and grafts; Z79.82 Long term (current) use of aspirin
CPT/HCPCS: 31500; 36556; 36558; 36600; 43752; 70450; 70551; 71045; 74018; 74176; 74230; 76700; 76937; 77001; 78226; 80048; 80051; 80053; 80143; 80179; 80306; 81003; 81015; 82077; 82248; 82533; 82550; 82805; 82962; 83605; 83690; 83735; 83880; 84439; 84443; 84478; 84484; 85014; 85018; 85025; 85027; 85610; 85730; 86022; 86704; 86706; 86803; 86850; 86900; 86901; 86920; 87040; 87070; 87077; 87186; 87205; 87340; 87449; 87502; 87641; 87811; 87899; 92507; 92523; 92526; 92610; 92611; 93005; 93306; 93970; 94002; 94003; 94640; 95816; 96361; 96365; 96366; 96367; 96375; 97110; 97163; 97167; 97530; 97535; 99152; 99153; 99291; 99292; A9537; C1750; G0257; J2020; P9016; P9047; Q5106

== ENCOUNTER 2024-06-11 19:52 | Inpatient (IN) | payer MEDICARE, OTHER, SELFPAY ==
[2024-06-11 13:19] VITALS: BP 149/77
--- NOTE | 2024-06-11 15:28 | PHANOTE ---
Addendum entered by Leonardo Medina 06/11/24 18:27:
Received senior living paperwork, inputted into system and left paperwork at bedside.
Original Note:
med rec note- called senior living for medication list to be faxed over, patient took him self out of [facility]. family in [place] does not know what he takes and nothing was called in to any pharmacy for him
--- NOTE | 2024-06-11 15:30 | ED.GENMED ---
History of Present Illness
General
Chief Complaint: Abnormal Lab Value
Source: patient and family
Exam Limitations: none
Time Seen by Provider: 06/11/24 15:01
Nursing documentation reviewed up to this point in time: agreed with
History of Present Illness
History of Present Illness:
Patient is a 78-year-old male with history of end-stage renal disease , malignant neoplasm of prostate and renal cell carcinoma with nephrectomy on hemodialysis Friday bilateral above knee amputations hypertension GA presents to
the ER for evaluation. Patient was recently at [facility] and signed himself out. He is a dialysis patient and last had dialysis on Friday.; Family reports because he is at home they were unable to schedule his dialysis for today.
Patient was recently admitted May 14 and discharged June 09 for metabolic encephalopathy secondary to myxedema coma from severe hypothyroidism and was on a ventilator at that time. In addition he did have aspiration and seizures.
Patient presents awake alert he has no complaints. Patient lives at home and his niece and sister area involved in his care.
Past History
Past History
ED Past Medical History: CAD, Cancer (Renal, prostate), HTN, Other (Peripheral arterial disease, anemia, TORSTEN) and Other (GI bleed); Negative CHF, CVA, Hypercholesterolemia, IDDM or NIDDM
ED Past Surgical History: Cardiac (Cardiac stents) and Urological (Kidney removal for renal cancer)
Social History
Tobacco: Non-smoker
Alcohol: None
Drug: None
Personal:
Living: with family
Employment: Retired
Family History
Family History: Hypertension
Review of Systems
Review of Systems
Allergies reviewed?: Yes
Other source history: family
All Other Systems: ROS reviewed and negative except as documented in HPI and ROS
Constitutional: Reports no symptoms; Denies fever, fatigue or chills
Respiratory: Reports no symptoms
Cardiac: Reports no symptoms
ABD/GI: Reports no symptoms
Musculoskeletal: Reports no symptoms
Skin: Reports no symptoms
Neurological: Reports no symptoms
Psychiatric: Reports no symptoms
Phy Exam
General Physical Exam
General Presentation: no apparent distress
General age: appears stated age
General Skin: warm and dry
General Habitus: normal
General Mental: alert
General Hydration: appears well hydrated
Course
Orders/Labs/Results
Orders:
Orders
06/11/24 15:40
Electrocardiogram (*1) Stat
Reason for Study: Abdominal Pain
Cardiac Monitoring- Treatment ONCE
EKG- Treatment ONCE
IV Insert/Care/Rem.- Treatment PRN
06/11/24 15:59
Hemodialysis treatment As Directed
Treatment date:: 06/12/24
Treatment type: Hemodialysis
Ultrafiltration (kg): 2
Treatment time (duration): 3 hours 30 minutes
Use dialysis access:: Tunneled Cath
Dialyzer:: Optiflux 160
Blood flow rate minimum: 350
Blood flow rate maximum: 400
Dialysis flow rate: 600 mL/min
Dialysate temperature: 35 degrees Celsius
Sodium (Na): 140
Potassium (K): 2
Calcium (Ca): 2.5
Bicarbonate (HCO3): 35
06/11/24 17:07
Complete Blood Count/With Diff Urgent
Comprehensive Metabolic Panel Urgent
06/11/24 19:34
Admit/Transfer Patient As Directed
Co-Sign Provider:
Level of Care: Inpatient admission
Assign to:: Medical/Surgical
Physician / Group: almas
Diagnosis: ESRD
Reason for Hospitalization: HD
Expected length of stay greater than two midnights?: Yes
ELOS- Estimated Length of Stay in days: 4
I certify the patient meets the requirements for IP care: Yes
06/11/24 19:35
PRN Pain Medication Management As Directed
May give lesser potent ordered pain med per pt: Yes
preference::
Protocol:: Medication orders for pain may be administered in a
manner that supports deferring to patient preference
when the pt is:
- Requesting an ordered lesser potent pain medication.
Least to most potent pain medications are defined
as: acetaminophen < NSAID < tramadol < opioids
(morphine, oxycodone, hydromorphone).
- Requesting a lesser dose of the same medication IF
ORDERED.
- Requesting a less intrusive route of administration
if both routes are prescribed by the provider (PO <
IV).
06/11/24 19:39
Code Status As Directed
Resuscitation Status: Full Code
06/12/24 07:00
Electrolytes Urgent
Comment: pre-Hemodialysis lab, to be drawn by HD nurse
H&H Urgent
Comment: pre-Hemodialysis lab, to be drawn by HD nurse
06/12/24 08:00
Albumin Human 25% 50 ml [Flexbumin 25% For Hemodialysis] 12.5 grams IV HD-Q1HPRN PRN
Epoetin Kaden-Epbx [Retacrit] 10,000 units IV HD-ONCE ONE
Heparin See Dose Instructions INTRACATH HD-ONCE ONE
Mannitol 25% 12.5 grams IV HD-Q1HPRN PRN
Sodium Chloride [Sodium Chloride 4 Meq/ml For Hemodialysis] 10 ml IV HD-Q1HPRN PRN
Abnormal Lab Results
06/11/24
17:07
WBC 11.8 H 10^3/uL
(4.8-10.8)
RBC 3.04 L 10^6/uL
(4.70-6.10)
Hgb 8.6 L g/dL
(13.0-18.0)
Hct 27.5 L %
(39.0-52.0)
MCHC 31.3 L g/dL
(33.0-37.0)
RDW 20.7 H %
(11.5-14.5)
Abs Immat Gran (auto) 0.1 H 10^3/uL
(0-0.05)
Absolute Neuts (auto) 9.3 H 10^3/uL
(1.4-6.5)
Absolute Lymphs (auto) 0.8 L 10^3/uL
(1.2-3.4)
Absolute Monos (auto) 1.0 H 10^3/uL
(0.1-0.6)
Immature Gran % 0.8 H %
(0-0.5)
Neutrophils % 78.9 H %
(42.2-75.2)
Lymphocytes % 6.9 L %
(20.5-51.1)
BUN 38 H mg/dl
(9-20)
Creatinine 3.8 H mg/dL
(0.7-1.3)
Calcium 7.2 L mg/dl
(8.4-10.2)
Total Protein 5.8 L g/dl
(6.3-8.2)
Albumin 3.0 L g/dl
(3.5-5.0)
06/11/24 17:07
06/11/24 17:07
Vital Signs
Initial and Last Documented VS:
Initial Vital Signs
Temp Pulse Resp BP Pulse Ox
99 F 88 16 149/77 100
06/11/24 13:19 06/11/24 13:19 06/11/24 13:19 06/11/24 13:19 06/11/24 13:19
Last Documented Vital Signs
Temp Pulse Resp BP Pulse Ox
98.1 F 85 14 160/87 100
06/11/24 21:02 06/11/24 18:00 06/11/24 18:00 06/11/24 18:00 06/11/24 18:00
MDM/Problems Addressed
MDM/Problems Addressed:
Patient is document is an 78-year-old male who signed himself out out of skilled rehab yesterday and was due for dialysis today. He has significant above history as documented. Patient was seen by nephrology and will require admission for dialysis
but will need rehab/fdc placement again.
Pt has no complaints
No recent complaints of fevers. White count elevated 11.8; creatinine 3.8 however potassium is normal at 5.1 with a normal sodium of 135. patient evaluated by hospitalist aware of elevated white count we will hold off on any additional imaging or
testing as per admitting physician assistant professor of anthropology.
*Pulse Oximetry
Patient hypoxic: no
*Critical Care Note
Total Time (30-74mins, 75-104mins- exclusive of procedures): Not Applicable
ED Attending Note
-
Portions of this chart may have been created with voice recognition software.� Occasional wrong word or��sound alike� substitutions may have occurred due to the inherent limitations of voice recognition software.
Discharge Plan
Departure
Patient Disposition: Admit
Date of Disposition: 06/11/24
Time of Disposition: 18:28
Admit to: Med/Surg
Admit to doctor: hospitalist
Presentation/result/management discussed w/ accepting MD/DO: Hospitalist
Patient with high blood pressure during this ER visit?: Yes
Condition: Fair
Covid-19: Not Applicable
Discharge Problem:
End stage kidney disease
Interventions
Interventions:
*Risk Screen - Suicide Last Done: 06/11/24 17:35
*General Assessment Last Done: 06/11/24 17:35
*Neglect/Abuse Screening Last Done: 06/11/24 17:35
ED- Fall Risk Assessment Last Done: 06/11/24 17:36
*ED COVID-19 Vaccine History Last Done: 06/11/24 17:35
--- NOTE | 2024-06-11 15:50 | W.CON.NEPH ---
Consultation
-
Date/Time Consultation Requested: 06/11/241529
Date/Time Consultation Performed: 06/11/241549
Requesting Provider: Dr. Jean-Baptiste
Performing Provider: Dr Bains
Reason for Consultation: ESRD
Medical History
-
Chief Complaint: ESRD
History of Present Illness:
This is an 78-year-old black male with ESRD recently started on dialysis last admission. He has hypertension and is maintained on a multidrug regimen. He also has a prior history of malignant neoplasm of prostate and renal cell carcinoma,
nephrectomy and ZAC of solitary kidney too, extensive history of both coronary artery and peripheral vascular disease and has undergone previous bifemoral bypass left AKA , Hx of pericardial effusion, retroperitoneal fibrosis, recent bence-rogers
protein with monoclonal spike. His last admission was notable for hypothyroidism which was quite significant. Ultimately, he was stabilized and sent to [facility] for rehabilitation. He was discharged Friday. According to the sister and
niece he called them yesterday saying that the facility was not up to his standards and wished to leave. Therefore they came and picked him up and checked him out AMA. There is no discussion or expectation regarding what to do about dialysis at
that time.They may have been told by the facility that he should go to emergency room for dialysis on Friday.The sister and niece had come over today and had to dress him and put him in his wheelchair to bring him to the hospital. He was a full
assist.At this time the patient denies having initiated the discharge from [facility].
Past Medical History
ESRD
Hydronephrosis
Pericardial and pleural effusion
Coronary artery disease
Hypertension
Peripheral vascular disease
Renal cancer with history of left nephrectomy
Hx of retroperitoneal fibrosis,
solitary kidney with renal artery stenosis
cancer of prostate
anemia
GI bleed
stage 1 sacral pressure wound,
glaucoma
bence-rogers protein with monoclonal spike
bilateral UE DVT
Past Surgical History: Other (Left Nephrectomy, left lower artery bypass surgery, Left AKA, Right transfemoral amputation)
Social History
Tobacco: Non-Smoker
Alcohol: None
Family History
No CKD
Allergies / Home Medications
Allergy/AdvReac Type Severity Reaction Status Date / Time
ciprofloxacin Allergy Itching Verified 05/21/24 16:53
Iodinated Contrast Media Allergy chills;trem Verified 05/21/24 16:53
[Iodinated Contrast- Oral ors
and IV Dye]
Penicillins Allergy liver Verified 05/21/24 16:53
damage,
red hands
and feet
phenytoin Allergy Rash Verified 05/21/24 16:53
tetanus and diphtheria Allergy Swelling, Verified 05/21/24 16:53
toxoids Pain at
site
�Medication �Instructions �Recorded �Confirmed �Type
aspirin 81 mg tablet,delayed 81 mg PO DAILY Heart 03/26/24 05/14/24 Rx
release disease/condition #0 tabs
carvedilol 6.25 mg tablet 6.25 mg PO BID Blood pressure #60 03/26/24 05/14/24 Rx
tabs
rosuvastatin 10 mg tablet 10 mg PO DAILY High cholesterol #0 03/26/24 05/14/24 Rx
tabs
brimonidine 0.15 % eye drops 1 drp BOTH EYES DAILY Eye Condition 05/14/24 05/14/24 History
dorzolamide 2 % eye drops 1 drp BOTH EYES BID Eye Condition 05/14/24 05/14/24 History
latanoprost 0.005 % eye drops 1 drp BOTH EYES HS Eye condition 05/14/24 05/14/24 History
miconazole nitrate 2 % topical 1 applic topical BID groin 05/14/24 05/14/24 History
powder (Miconazorb AF)
apixaban 5 mg tablet (Eliquis) 5 mg PO BID #60 tabs 06/09/24 Rx
hydralazine 25 mg tablet 50 mg (2 x 25 mg) PO TID #120 tabs 06/09/24 Rx
levetiracetam 500 mg tablet 500 mg PO BID #60 tabs 06/09/24 Rx
(Keppra)
levothyroxine 75 mcg tablet 75 mcg PO DAILY @ 0600 #30 tabs 06/09/24 Rx
polyethylene glycol 3350 17 gram 17 g PO DAILY #30 ea 06/09/24 Rx
oral powder packet (HealthyLax)
Review of Systems
-
no CP/SOB
All other systems: Negative unless noted
Physical Exam
Vital Signs
Vital Signs
Temp Pulse Resp BP Pulse Ox
99 F 88 16 149/77 100
06/11/24 13:19 06/11/24 13:19 06/11/24 13:19 06/11/24 13:19 06/11/24 13:19
Lab Results
Laboratory Tests
06/09/24
07:52
Hgb 7.6 L
Sodium 133 L
Potassium 4.5
Creatinine 3.4 H
Physical Exam
Patient is awake alert oriented and in no distress. Mood and affect were pleasant, insight and judgment were good. Pupils are equal round and reactive to light, extraocular movements are intact, sclera were anicteric. Hearing was normal, ears and
nose are intact. Oropharynx was clear. Neck was supple with trachea midline and no thyromegaly. Heart was regular rate and rhythm without rubs. Lower extremities with amputations. UE with edema bilaterally. Lungs were clear to auscultation
bilaterally and with normal excursion. Abdomen was soft, nontender, with normal active bowel sounds, and no hepatosplenomegaly. Skin was without rash and with normal turgor.
Data Reviewed
-
Radiology: Image Personally Visualized and interpreted (Chest x-ray on May 29, 2024 by my reading shows small left effusion)
Medical Tests (Nuc Med, Echo etc): Report Reviewed by me (Echocardiogram on 05/14/2024 shows hyperdynamic LV function, moderate MR and AR, mild TR)
Labs: Labs Reviewed by me (pending)
Old Records: Reviewed
Assessment/Plan
-
Impression:
HTN
Suspected seizures with tongue bite last admission
Hx of pericardial effusion s/p pericardiocentesis
ESRD
Macroglossia-severe hypothyroidism
PAD s/p b/l AKA and femoral stents
Renal artery stenosis of solitary kidney-deemed not a candidate for renal artery revasc with poor vascular
Hx of prostate CA
HLD
Glaucoma
Hx of GIB
Chronic anemia
monoclonal spike on SPEP
Stage 1 sacral wound
Diverticulosis
Coronary artery disease
Renal cancer with history of left nephrectomy
hx dorsal slit for alicea placement
Plan:
HD tomorrow
will need rehab/SNF placement again. I discussed with the patient and his sister at great length. There are few options that we will be available to him because he requires dialysis. He may need to except return to [facility] if they will take
him back. Other options would be [facility] or [facility] for she was living. These options were explored previously on his last hospitalization. His niece had asked the visit facilities and had ultimately decided to except a [facility]
given only availability.
can have therapy reevaluate
cannot use UE edema as gauge of volume given DVT
follow hgb, on CAROL
[2024-06-11 17:10] VITALS: BP 166/91
[2024-06-11 17:35] LABS: % Basophils 1.1 % (0-2); % Eosinophils 4.2 % (0-6); % Immature Granulocytes 0.8 % (0-0.5); % Lymphocytes 6.9 % (20.5-51.1); % Monocytes 8.1 % (1.7-9.3); % Neutrophils 78.9 % (42.2-75.2); Absolute Basophils 0.1 10^3/uL (0-0.2); Absolute Eosinophils 0.5 10^3/uL (0-0.7); Absolute Immature Granulocytes 0.1 10^3/uL (0-0.05); Absolute Lymphocytes 0.8 10^3/uL (1.2-3.4); Absolute Neutrophils 9.3 10^3/uL (1.4-6.5); Hematocrit 27.5 % (39.0-52.0); Hemoglobin 8.6 g/dL (13.0-18.0); Mean Corp Hgb Conc. 31.3 g/dL (33.0-37.0); Mean Corpuscular Hgb 28.3 pg (27.0-31.0); Mean Corpuscular Volume 90.5 fL (80.0-94.0); Mean Platelet Volume 9.9 fL (7.4-10.4); Nucleated Red Blood Cells % 0 % (-); Platelet Count 302 10^3/uL (130-400); Red Blood Cell Count 3.04 10^6/uL (4.70-6.10); Red Cell Dist. Width 20.7 % (11.5-14.5); White Blood Cell Count 11.8 10^3/uL (4.8-10.8)
[2024-06-11 17:42] LABS: ALT (SGPT) 16 U/L (0-50); AST (SGOT) 24 U/L (17-59); Alkaline Phosphatase 58 U/L (38-126); Blood Urea Nitrogen 38 mg/dl (9-20); Calcium 7.2 mg/dl (8.4-10.2); Carbon Dioxide 26 mmol/L (22-30); Chloride 98 mmol/L (98-107); Glucose 86 mg/dl (70-99); Potassium 5.1 mmol/L (3.5-5.1); Sodium 135 mmol/L (135-145); Total Bilirubin 0.4 mg/dl (0.2-1.3); Total Protein 5.8 g/dl (6.3-8.2); eGFR 15.33
[2024-06-11 18:00] VITALS: BP 160/87
--- NOTE | 2024-06-11 19:12 | HPS.HSE ---
Family Physician
-
Family Physician: Deep Bains
Chief Complaint
-
Need for Dialysis
History of Present Illness
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 Patient was discharged on June 09 to [facility]. Apparently patient left [facility] yesterday. Unfortunately no arrangements were made for outpatient dialysis and patient is due for treatment today. At the direction of his physician he presented to the emergency department. Patient
denies any complaints at the present time.
Medical History
Past Medical History
Past Medical History: Reports Other
Additional Past Medical History:
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
Hypertension
Hyperlipidemia
Solitary Kidney with Renal Artery Stenosis
ESRD on HD
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
Hypothyroidism
Seizure Disorder
Bilateral Upper Ext DVT
Renal Cell Carcinoma
Prostate Cancer s/p Radiation
Past Surgical History: Reports Other
Additional Past Surgical History:
Bilateral AKAs
Fem-Fem Bypass
Cardiac Stents
Right Carotid Artery Stent
Left Nephrectomy
Social History
Tobacco: Non-smoker
Alcohol: None
Drug: None
Employment: Retired
Family History
Family History: Other (Father with cancer, Mother with pancreatic cancer, sibling with valvular heart disease.)
Allergies / Home Medications
Allergies reflects when Allergies were last updated in [employer].
Home Medications with original date entered in [employer]
Allergy/Medication List:
Allergies
Allergy/AdvReac Type Severity Reaction Status Date / Time
ciprofloxacin Allergy Itching Verified 05/21/24 16:53
Iodinated Contrast Media Allergy chills;trem Verified 05/21/24 16:53
[Iodinated Contrast- Oral ors
and IV Dye]
Penicillins Allergy liver Verified 05/21/24 16:53
damage,
red hands
and feet
phenytoin Allergy Rash Verified 05/21/24 16:53
tetanus and diphtheria Allergy Swelling, Verified 05/21/24 16:53
toxoids Pain at
site
Home Medications
aspirin 81 mg tablet,delayed release 81 mg PO DAILY Heart disease/condition #0 tabs 03/26/24
carvedilol 6.25 mg tablet 6.25 mg PO BID Blood pressure #60 tabs 03/26/24
brimonidine 0.15 % eye drops 1 drp BOTH EYES DAILY Eye Condition 05/14/24
dorzolamide 2 % eye drops 1 drp BOTH EYES BID Eye Condition 05/14/24
latanoprost 0.005 % eye drops 1 drp BOTH EYES HS Eye condition 05/14/24
miconazole nitrate 2 % topical powder (Miconazorb AF) 1 applic topical BID groin 05/14/24
apixaban 5 mg tablet (Eliquis) 5 mg PO BID #60 tabs 06/09/24
levetiracetam 500 mg tablet (Keppra) 500 mg PO BID #60 tabs 06/09/24
levothyroxine 75 mcg tablet 75 mcg PO DAILY @ 0600 #30 tabs 06/09/24
polyethylene glycol 3350 17 gram oral powder packet (HealthyLax) 17 g PO DAILY #30 ea 06/09/24
hydralazine 50 mg tablet 50 mg PO TID 06/11/24
rosuvastatin 10 mg tablet 10 mg PO HS High cholesterol 06/11/24
Review of Systems
-
A 12 point ROS was completed and negative except as noted: Yes
Constitutional: Denies Fever or Chills
Respiratory: Denies Cough or Trouble Breathing
Cardiac: Denies Chest Pain or Palpitations
Abdomen/GI: Denies Abdominal Pain, Nausea or Vomiting
Physical Exam
Vital Signs
Vital Signs
Temp Pulse Resp BP Pulse Ox
99 F 85 14 160/87 100
06/11/24 13:19 06/11/24 18:00 06/11/24 18:00 06/11/24 18:00 06/11/24 18:00
Physical Exam
General: Comfortable and Conversant
HEENT: Anicteric and Moist mucous membranes
Respiratory: Clear and Non Labored Respirations
Cardiac: S1/S2 and Regular Rhythm
GI: Soft and Non Tender
Rectal: Deferred by Provider
Musculoskeletal: No Clubbing, No Cyanosis and Other (Bilateral AKAs)
Skin: Warm and Dry
Neuro: Awake, Alert, Oriented and Nonfocal/grossly intact
Psych: Calm
Laboratory Results
-
06/11/24 17:07
06/11/24 17:07
Laboratory Results
Total Bilirubin 0.4 mg/dl (0.2-1.3) 06/11/24 17:07
AST 24 U/L (17-59) 06/11/24 17:07
ALT 16 U/L (0-50) 06/11/24 17:07
Alkaline Phosphatase 58 U/L (38-126) 06/11/24 17:07
Data Reviewed
-
Lab Data: Labs Reviewed by me
Old Records: Reviewed
Impression/Plan
-
ESRD on HD
-Appreciate Nephrology
-Consult Case Management for discharge planning for SNF with dialysis
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
-Continue aspirin
Hypertension
-Continue Coreg, and Hydralazine
Hyperlipidemia
-Continue Crestor
Hypothyroidism with recent Myxedema Coma
-Continue levothyroxine
Seizure Disorder
-Continue Keppra
Bilateral Upper Ext DVT in May 2024
-Continue Eliquis
Hx Renal Cell Carcinoma s/p Nephrectomy
Hx Prostate Cancer s/p Radiation
Code Status: Full Code
--- NOTE | 2024-06-11 19:30 | W.PN.UPDATE ---
Update Note
Progress Note Update
This is an addendum to the H&P written by Uyen Ruth on 06/11/2024.� Patient seen and examined independently with PA.
78-year-old male past medical history of ESRD on hemodialysis Friday, Friday, Friday, renal cell carcinoma status post nephrectomy with solitary right kidney PAD status post bilateral AKA status post femorofemoral bypass, prostate cancer, CAD
status post PCI, stage I pressure wound, glaucoma, labile hypertension, history of pericardial effusion, history of retroperitoneal fibrosis, renal artery stenosis solitary kidney, MGUS, bilateral upper extremity DVT on Eliquis, chronic anemia,
presented to emergency room after he signed himself out of [facility] and they were unable to schedule dialysis for today.
Patient was recently admitted from May 14 to June 09 for metabolic encephalopathy secondary to ventilator dependent respiratory failure secondary to myxedema coma from severe hypothyroidism associated with seizures and aspiration pneumonia.�
Hemodialysis was initiated during this admission.
Nephrology consulted for hemodialysis tomorrow.� Case management to assist with placement as patient left AMA from [facility].� Hemoglobin stable at 8.6.
[2024-06-11 22:18] VITALS: BMI 57.6
[2024-06-11 22:29] VITALS: BP 164/81
[2024-06-11] MEDS: APRESOLINE 50 MG PO (22:40)
[2024-06-11] MEDS: KEPPRA 500 MG PO (22:40)
[2024-06-11] MEDS: CRESTOR 10 MG PO (22:40)
[2024-06-11] MEDS: ELIQUIS 5 MG PO (22:41)
[2024-06-11] MEDS: COREG 6.25 MG PO (22:41)
--- NOTE | 2024-06-11 22:50 | PTCARENOTE ---
Received pt from ED via stretcher. Pt pulled over to bed with assist x3. AAOx3, [place]. Forgetful. Blood pressure elevated, will recheck. No complaints of pain. Assessed and oriented to room. Pt demonstrated understanding of call skinner. Call skinner within
close reach. CDI dressing observed on pt DONAE, pt stated, 'I don't know if it is a fistula or not', pink limb restriction band placed. Will continue to monitor.
[2024-06-11 23:00] VITALS: BP 163/85
[2024-06-11 23:41] VITALS: BP 158/84
[2024-06-12] MEDS: SYNTHROID 75 MCG PO (04:58)
[2024-06-12 06:00] VITALS: BMI 57.4
[2024-06-12 07:00] VITALS: BP 133/70
[2024-06-12 08:06] LABS: Hematocrit 26.8 % (39.0-52.0); Hemoglobin 8.5 g/dL (13.0-18.0); Mean Corp Hgb Conc. 31.7 g/dL (33.0-37.0); Mean Corpuscular Hgb 29.8 pg (27.0-31.0); Mean Platelet Volume 9.7 fL (7.4-10.4); Platelet Count 294 10^3/uL (130-400); Red Blood Cell Count 2.85 10^6/uL (4.70-6.10); Red Cell Dist. Width 19.9 % (11.5-14.5); White Blood Cell Count 8.7 10^3/uL (4.8-10.8)
[2024-06-12 08:18] LABS: Carbon Dioxide 28 mmol/L (22-30); Chloride 97 mmol/L (98-107); Potassium 5.2 mmol/L (3.5-5.1); Sodium 135 mmol/L (135-145)
[2024-06-12] MEDS: RETACRIT 10000 UNITS IV (08:37)
--- NOTE | 2024-06-12 10:51 | W.PN.NEPH.HD ---
Assessment
-
Seen on HD. no new complaints. VSS, access ok
will need placement again, therapy eval
Progress Note - Hemodialysis
-
Date of Service: June 12, 2024
Duration: 30 minutes and 3 hours
Potassium Bath: 2
Calcium Bath: 2.5
Opti-Dialyzer: 160
Ultrafiltration: Other (2kg)
Blood Flow: 400
Dialysate Flow: 600
Heparin: 0
EPO: 67504 units
--- NOTE | 2024-06-12 11:24 | W.PN.HOSP.TC ---
Today's Communication/Plan
-
DC planning
Assessment / Plan
Assessment / Plan
Physical Exam
General: Comfortable and Conversant
HEENT: Anicteric and Moist mucous membranes
Respiratory: Clear and Non Labored Respirations, right upper chest dialysis catheter.
Cardiac: S1/S2, + murmur
GI: Soft and Non Tender
Rectal: No rectal bleeding
Musculoskeletal: (Bilateral AKA)
Skin: Warm and Dry
Neuro: Awake, Alert, Oriented and Nonfocal/grossly intact
Psych: Calm
ESRD on HD
not in distress
going through dialysis with good access and BP
-Appreciate Nephrology
-Consult Case Management for discharge planning for SNF with dialysis
# discharge planning
Pt was discharged on 06/09 to [facility], he stayed there for a day or so and signed himself out. He presented to ER.
consulted block and case maker
# hyperkalemia, treated through hemodialysis.
# Anemia of chronic disease
Stable HGB
# Severe PVD s/p Bilateral AKA
-Continue aspirin
# Essential Hypertension
-Continue Coreg, and Hydralazine
#Hyperlipidemia
-Continue Crestor
# Hypothyroidism with recent Myxedema Coma
-Continue levothyroxine
# Seizure Disorder
-Continue Keppra
Bilateral Upper Ext DVT in May 2024
-Continue Eliquis
Hx Renal Cell Carcinoma s/p Nephrectomy
Hx Prostate Cancer s/p Radiation
Code Status: Full Code
Total time spent to see the patient, examine the patient on the floor, review data and lab results, discuss treatment plan with patient, nursing staff around 55 minutes
Anticipated Discharge: Within 24 hours
Subjective/Interval History
-
Date of Service: June 12, 2024
No chest pain
No sob
No issues with today's dialysis
Objective Data
-
Labs:
Laboratory Results
06/12/24
07:40
WBC 8.7
Hgb 8.5 L
Hct 26.8 L
Plt Count 294
Sodium 135
Potassium 5.2 H
Chloride 97 L
Carbon Dioxide 28
Vital Signs:
Vital Signs
Temp Pulse Resp BP Pulse Ox
97.7 F 84 16 133/70 100
06/12/24 07:00 06/12/24 07:00 06/12/24 07:00 06/12/24 07:00 06/12/24 07:00
I&O
06/11/24 06/12/24 06/13/24
06:59 06:59 05:59
Intake Total 120 / 120
Balance 120 / 120
[2024-06-12] MEDS: APRESOLINE 50 MG PO ×3 (11:51→21:44)
[2024-06-12] MEDS: ASPIR LOW (ENTERIC COATED) 81 MG PO (11:51)
[2024-06-12] MEDS: COREG 6.25 MG PO ×2 (11:52→21:44)
[2024-06-12] MEDS: HEPARIN 3900 UNITS INTRACATH (11:52)
[2024-06-12] MEDS: KEPPRA 500 MG PO ×2 (11:53→21:43)
[2024-06-12] MEDS: ELIQUIS 5 MG PO ×2 (11:53→21:43)
[2024-06-12] MEDS: MIRALAX PO (11:54)
[2024-06-12 13:46] VITALS: BP 154/83; PULSE 104; O2SAT 95
[2024-06-12 13:49] VITALS: BP 154/83; PULSE 104
[2024-06-12 15:00] VITALS: BP 145/81
[2024-06-12] MEDS: CRESTOR 10 MG PO (21:43)
[2024-06-12 23:00] VITALS: BP 128/69
[2024-06-12] MEDS: TYLENOL 650 MG PO (23:31)
[2024-06-13] MEDS: SYNTHROID 75 MCG PO (05:46)
[2024-06-13 06:00] VITALS: BMI 54.8
--- NOTE | 2024-06-13 06:27 | W.PN.UPDATE ---
Update Note
Progress Note Update
RN addresses patient having spikes of temperature, Mild cough, Will order UA, blood culture, CBC, MRSA pending, will do Covid
[2024-06-13 07:00] VITALS: BP 156/83
--- NOTE | 2024-06-13 07:30 | PTCARENOTE ---
T at HS 102.2. Tylenol as per prn order. TT to [facility], covering house. To recheck in am. Repeat T 99.7. Labs as ordered.
[2024-06-13 07:38] LABS: Hematocrit 26.4 % (39.0-52.0); Hemoglobin 8.5 g/dL (13.0-18.0); Mean Corp Hgb Conc. 32.2 g/dL (33.0-37.0); Mean Corpuscular Hgb 28.4 pg (27.0-31.0); Mean Corpuscular Volume 88.3 fL (80.0-94.0); Mean Platelet Volume 9.6 fL (7.4-10.4); Platelet Count 243 10^3/uL (130-400); Red Blood Cell Count 2.99 10^6/uL (4.70-6.10); Red Cell Dist. Width 19.9 % (11.5-14.5); White Blood Cell Count 6.7 10^3/uL (4.8-10.8)
[2024-06-13] MEDS: KEPPRA 500 MG PO ×2 (08:16→20:54)
[2024-06-13] MEDS: APRESOLINE 50 MG PO ×2 (08:17→20:53)
[2024-06-13] MEDS: COREG 6.25 MG PO ×2 (08:19→20:53)
[2024-06-13] MEDS: ASPIR LOW (ENTERIC COATED) 81 MG PO (08:19)
[2024-06-13] MEDS: ELIQUIS 5 MG PO ×2 (08:19→20:53)
--- NOTE | 2024-06-13 08:19 | W.PN.HOSP.TC ---
Addendum entered and electronically signed by Yamileth Crenshaw MD 06/13/24 14:25:
Addendum
COVID test is positive, will do isolation. d/w Dr Rinaldi, CXR no infiltrates, no hypoxia. Called family.
End
Addendum entered and electronically signed by Yamileth Crenshaw MD 06/13/24 12:38:
Addendum
Pt wanted eye drops, will re-order them.
End
Original Note:
Today's Communication/Plan
-
Work up for fever including urine test( straight cath), chest x ray, blood culture, monitor Dialysis catheter
Will d/w ID and nephrology
Placement issue, not much options available with HD as a requirement, reconsider dc back to SNF if unable to go home.
Assessment / Plan
Assessment / Plan
Physical Exam
General: Comfortable and Conversant
HEENT: Anicteric and Moist mucous membranes
Respiratory: Clear and Non Labored Respirations, right upper chest dialysis catheter.
Cardiac: S1/S2, + murmur
GI: Soft and Non Tender
Rectal: No rectal bleeding
Musculoskeletal: (Bilateral AKA)
Skin: Warm and Dry
Neuro: Awake, Alert, Oriented and Nonfocal/grossly intact
Psych: Calm
# Fever
No fever this morning
Will do Chest x ray, recent treatment in for PNA
Blood culture
Stevenson catheter was dc last admission( he was not making much urine),. will order straight cath and urine testing.
Monitor for Dialysis catheter erythema ( non this morning, no tenderness).
Consult ID, will also d/w over hauler helper ( they know pt from last admission).
# ESRD on HD
Not in respiratory distress
Per nephrology : cannot use UE edema as gauge of volume given DVT
-Appreciate Nephrology
-Consult Case Management for discharge planning for SNF with dialysis
# Discharge planning
Pt was discharged on 06/09 to [facility], he stayed there for a day or so and signed himself out. He presented to ER.
Per nephrology: previously discussed with the patient and his sister at great length. There are few options that we will be available to him because he requires dialysis. He may need to except return to [facility] if they will take him back.
Other options would be [facility] or [facility] for she was living. These options were explored previously on his last hospitalization. His niece had asked the visit facilities and had ultimately decided to except a [facility] given only
availability.
consulted returned case inspector
# hyperkalemia, treated through hemodialysis.
# Anemia of chronic disease
Stable HGB
# Severe PVD s/p Bilateral AKA
-Continue aspirin
# Essential Hypertension
-Continue Coreg, and Hydralazine
#Hyperlipidemia
-Continue Crestor
# Hypothyroidism with recent Myxedema Coma
-Continue levothyroxine
# Seizure Disorder
-Continue Keppra
Bilateral Upper Ext DVT in May 2024
-Continue Eliquis
Hx Renal Cell Carcinoma s/p Nephrectomy
Hx Prostate Cancer s/p Radiation
Code Status: Full Code
Total time spent to see the patient, examine the patient on the floor, review data and lab results, discuss treatment plan with patient, consultants, nursing staff around 55 minutes
Anticipated Discharge: 24 - 48 hours
Subjective/Interval History
-
Date of Service: June 13, 2024
Pt has no complaints
No cough
No pain in chest or abdomen
Objective Data
-
Labs:
Laboratory Results
06/13/24
07:31
WBC 6.7
Hgb 8.5 L
Hct 26.4 L
Plt Count 243
Vital Signs:
Vital Signs
Temp Pulse Resp BP Pulse Ox
99.7 F 99 16 128/69 97
06/13/24 06:09 06/12/24 23:00 06/12/24 23:00 06/12/24 23:00 06/12/24 23:00
I&O
06/12/24 06/13/24 06/14/24
07:59 06:59 06:59
Intake Total
Balance
[2024-06-13] MEDS: MIRALAX PO (08:20)
--- NOTE | 2024-06-13 09:45 | W.PN.NEPH.PH ---
Today's Communication / Plan
-
HD tomorrow
Assessment/Plan
-
Impression:
HTN
Suspected seizures with tongue bite last admission
Hx of pericardial effusion s/p pericardiocentesis
ESRD
Macroglossia-severe hypothyroidism
PAD s/p b/l AKA and femoral stents
Renal artery stenosis of solitary kidney-deemed not a candidate for renal artery revasc with poor vascular
Hx of prostate CA
HLD
Glaucoma
Hx of GIB
Chronic anemia
monoclonal spike on SPEP
Stage 1 sacral wound
Diverticulosis
Coronary artery disease
Renal cancer with history of left nephrectomy
hx dorsal slit for alicea placement
Plan:
HD tomorrow
will need rehab/SNF placement again.
I previously discussed with the patient and his sister at great length. There are few options that we will be available to him because he requires dialysis. He may need to except return to [facility] if they will take him back. Other options
would be [facility] or [facility] for she was living. These options were explored previously on his last hospitalization. His niece had asked the visit facilities and had ultimately decided to except a [facility] given only availability.
PT/OT eval
cannot use UE edema as gauge of volume given DVT
follow hgb, on CAROL
-
-
Date of Service: June 13, 2024
CC / HPI / ROS
-
Chief Complaint:
ESRD
History of Present Illness:
tolerated HD yesterday
BP stable
Review of Systems:
no CP/SOB
Labs
-
Labs:
WBC 6.7 10^3/uL (4.8-10.8) 06/13/24 07:31
RBC 2.99 10^6/uL (4.70-6.10) L 06/13/24 07:31
Hgb 8.5 g/dL (13.0-18.0) L 06/13/24 07:31
Hct 26.4 % (39.0-52.0) L 06/13/24 07:31
Plt Count 243 10^3/uL (130-400) 06/13/24 07:31
Sodium 135 mmol/L (135-145) 06/12/24 07:40
Potassium 5.2 mmol/L (3.5-5.1) H 06/12/24 07:40
Chloride 97 mmol/L (98-107) L 06/12/24 07:40
Carbon Dioxide 28 mmol/L (22-30) 06/12/24 07:40
BUN 38 mg/dl (9-20) H 06/11/24 17:07
Creatinine 3.8 mg/dL (0.7-1.3) H 06/11/24 17:07
eGFR 15.33 06/11/24 17:07
Glucose 86 mg/dl (70-99) 06/11/24 17:07
Calcium 7.2 mg/dl (8.4-10.2) L 06/11/24 17:07
Albumin 3.0 g/dl (3.5-5.0) L 06/11/24 17:07
Physical Exam
-
Vital Signs:
Vital Signs
Temp Pulse Resp BP Pulse Ox
98.2 F 88 17 156/83 99
06/13/24 07:00 06/13/24 08:17 06/13/24 07:00 06/13/24 08:17 06/13/24 07:00
Cardiovascular:: Regular rate and rhythm
Respiratory:: Bilateral: Coarse
Lung Excursion:: Normal
Abdomen:: Nontender and Soft
Bowel Sounds:: Normal
Extremity Edema:: +2: Bilateral: (UE)
--- NOTE | 2024-06-13 11:35 | CON.ID ---
Addendum entered and electronically signed by Leeanna Rinaldi MD 06/13/24 14:24:
COVID Ag positive.
Pt asymptomatic. Will observe closely.
Informed his niece who has URI sxs. She will test herself for COVID.
Original Note:
Consultation
-
Date/Time Consultation Requested: June 13, 2024 0819
Date/Time Consultation Performed: June 13, 2024 1140
Requesting Provider: Dr. Emerita Crenshaw
Performing Provider: Dr. Leeanna Rinaldi
Reason for Consultation: Fever
Chief Complaint / Past History
Chief Complaint
Fever
History of Present Illness
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 Bacteroides bacteremia, Serratia aspiration pneumonia treated with abx's, GIB, BUE DVT, TORSTEN on CKD initiated on HD. He was discharged to [facility].
Per daughter, he did not want to stay at SNF and so she took him home. However no outpatient dialysis was arranged. He was therefore advised to come back to ED on 06/11. Admission wbc 11.8 LAt night, he spiked fevers 101.8 and 102.2. Blood cx's
pending COVID pending. CXR no pneumonia. Pt reports he feels well overall. No DIAZ/rhinorrhea/sore throat. He has been upgraded to regular diet without dysphagia. No cough or SOB. No CP. No N/V/D. No dysuria/flank pain. No chills or sweats. Daughter
reports she has URI with cold, started today. No other ill contacts.
Past History
Past Medical History: None
Additional Past Medical History:
Severe PAD s/p Bilateral AKAs
Hypertension
Hyperlipidemia
Solitary Kidney with Renal Artery Stenosis
ESRD on HD
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
Hypothyroidism, hx myxedema coma
CAD s/p stents
Seizure Disorder
Bilateral Upper Ext DVT
Renal Cell Carcinoma s/p left nephrectomy
Prostate Cancer s/p Radiation
Right carotid artery stent
Additional Past Surgical History:
see above
Allergy History:
ciprofloxacin Allergy (Verified 05/21/24 16:53)
Itching
Iodinated Contrast Media [Iodinated Contrast- Oral and IV Dye] Allergy (Verified 05/21/24 16:53)
chills;tremors
Penicillins Allergy (Verified 05/21/24 16:53)
liver damage, red hands and feet
phenytoin Allergy (Verified 05/21/24 16:53)
Rash
tetanus and diphtheria toxoids Allergy (Verified 05/21/24 16:53)
Swelling, Pain at site
Medications Reviewed: Yes
Current Antibiotics:
none
Social History
Tobacco: Non-Smoker
Alcohol: None
Drug: None
Family History
Family History: Not Pertinent
Review of Systems
Review of Systems
General: Negative Chills or Change in Appetite
HEENT: Negative Stiff Neck, Sinus Problems, Headache or Pharyngitis
Cardiovascular: Negative Chest Pain or Dyspnea
Respiratory: Negative Dyspnea or Cough
Gasteroenterology: Negative Nausea, Vomiting or Diarrhea
Genital / Urological: Negative Dysuria or Flank Pain
Endocrine: Negative Weakness
Skin / Hair / Nails: Negative Rash
Neurological: Negative Dizziness
All systems: All other systems were reviewed and were negative
Vital Signs
Temp Pulse Resp BP Pulse Ox
98.2 F 88 17 156/83 95
06/13/24 07:00 06/13/24 08:17 06/13/24 07:00 06/13/24 08:17 06/13/24 08:15
Selected Entries
06/12/24
23:00 06/12/24
23:30
Temp 101.8 F H 102.2 F H
Physical Exam
Physical Exam
Constitutional: No Acute Distress and Comfortable
Eyes: No Conjunctival Hemorrhage and Sclera Anicteric
Cardiovascular: Regular Rate and S1/S2
Pulmonary: Other (decreased BS bases)
Gastrointestinal: Soft, Non Tender, Non Distended and Normal Bowel Sounds
Genito-Urinary: Negative CVA Tenderness
Extremities: Other (AKA stumps unremarkable)
Neurological: AO x 3
Lines: HD Cath (RCW no erythema)
Lab / Diagnostic Study Results
06/13/24 07:31
06/12/24 07:40
Abs Immat Gran (auto) 0.1 10^3/uL (0-0.05) H 06/11/24 17:07
Absolute Neuts (auto) 9.3 10^3/uL (1.4-6.5) H 06/11/24 17:07
Absolute Lymphs (auto) 0.8 10^3/uL (1.2-3.4) L 06/11/24 17:07
Absolute Monos (auto) 1.0 10^3/uL (0.1-0.6) H 06/11/24 17:07
Absolute Basos (auto) 0.1 10^3/uL (0-0.2) 06/11/24 17:07
Immature Gran % 0.8 % (0-0.5) H 06/11/24 17:07
Neutrophils % 78.9 % (42.2-75.2) H 06/11/24 17:07
Lymphocytes % 6.9 % (20.5-51.1) L 06/11/24 17:07
Monocytes % 8.1 % (1.7-9.3) 06/11/24 17:07
Eosinophils % 4.2 % (0-6) 06/11/24 17:07
Basophils % 1.1 % (0-2) 06/11/24 17:07
Microbiology Results
Micro:
06/13/24 09:09 Blood Culture - Pending
Blood/Venous
06/12/24 04:46 MRSA Screen - Final
Nose No Methicillin Resistant Staphylococcus aureus isolated.
06/13/24 07:32 Blood Culture - Pending
Blood/Venous
Assessment / Plan
# Fever
- possibly viral as daughter with URI
- no focal signs and symptoms
- CXR no pneumonia
- follow blood cx's (pt with HD cath)
- Follow COVID Ag test
- Will observe off abx at this time.
-Follow temps.
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
Severe PAD s/p Bilateral AKAs
Hypertension
Hyperlipidemia
Solitary Kidney with Renal Artery Stenosis
ESRD on HD
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
Hypothyroidism, hx myxedema coma
CAD s/p stents
Seizure Disorder
Bilateral Upper Ext DVT
Renal Cell Carcinoma s/p left nephrectomy
Prostate Cancer s/p Radiation
Right carotid artery stent
[2024-06-13 13:08] LABS: Urine Albumin 3+ (Neg - Trace); Urine Bilirubin 1+ (Negative); Urine Character Clear (Clear); Urine Color Yellow; Urine Glucose Negative (Negative); Urine Ketone Negative (Negative); Urine Leukocyte Trace (Negative); Urine Nitrite Negative (Negative); Urine Occult Blood Negative (Negative); Urine Specific Gravity 1.005 (<1.030); Urine Urobilinogen Negative (Neg - 1+)
[2024-06-13] MEDS: ALPHAGAN P 0.15% EYE DROPS 1 DROP OPHTH (13:15)
[2024-06-13 13:16] LABS: Urine Hyaline Cast 0-2 /LPF (0-2)
[2024-06-13 13:17] LABS: Urine Amorphous Seen; Urine Bacteria Few (Negative)
[2024-06-13 13:49] LABS: COVID-19 Antigen Positive (Negative)
[2024-06-13 15:00] VITALS: BP 95/53
[2024-06-13] MEDS: APRESOLINE PO (16:13)
[2024-06-13] MEDS: TRUSOPT 2% OPHTHALMIC SOLUTION 1 DROP OPHTH ×2 (16:15→20:55)
[2024-06-13] MEDS: XALATAN OPHTHALMIC SOLUTION 1 DROP OPHTH (17:57)
[2024-06-13] MEDS: CRESTOR 10 MG PO (20:52)
[2024-06-13 23:20] VITALS: BP 160/86
[2024-06-14] MEDS: SYNTHROID 75 MCG PO (05:51)
[2024-06-14 07:34] VITALS: BP 141/45
[2024-06-14 08:00] VITALS: BMI 55.1
[2024-06-14] MEDS: MIRALAX 17 GRAMS PO (08:16)
[2024-06-14] MEDS: APRESOLINE PO ×2 (08:16→21:21)
[2024-06-14] MEDS: ASPIR LOW (ENTERIC COATED) 81 MG PO (08:17)
[2024-06-14] MEDS: ALPHAGAN P 0.15% EYE DROPS 1 DROP OPHTH (08:17)
[2024-06-14] MEDS: KEPPRA 500 MG PO ×2 (08:17→21:20)
[2024-06-14] MEDS: ELIQUIS 5 MG PO ×2 (08:17→21:20)
[2024-06-14] MEDS: TRUSOPT 2% OPHTHALMIC SOLUTION 1 DROP OPHTH (08:18)
[2024-06-14] MEDS: COREG PO (08:18)
[2024-06-14 09:58] VITALS: BMI 16.9
[2024-06-14] MEDS: MOLNUPIRAVIR (EUA) 200 MG PO (11:47)
--- NOTE | 2024-06-14 12:02 | W.PN.ID1 ---
Date of Service
Date of Service: June 14, 2024
Today's Communication
molnupiravir 800mg po bid x 5 days
Assessment / Plan
# Mild symptomatic COVID19 infection
-Unvaccinated.
-Fever resolving
-c/o weakness and diarrhea today
-CXR no PNA; no hypoxia
- ESRD on HD, avoid Paxlovid
-Start molnupiravir 800mg po bid x 5 days
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
Severe PAD s/p Bilateral AKAs
Hypertension
Hyperlipidemia
Solitary Kidney with Renal Artery Stenosis
ESRD on HD
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
Hypothyroidism, hx myxedema coma
CAD s/p stents
Seizure Disorder
Bilateral Upper Ext DVT
Renal Cell Carcinoma s/p left nephrectomy
Prostate Cancer s/p Radiation
Right carotid artery stent
Chief Complaint
-: Other (COVID)
Subjective / Review of Systems
Feels weaker today. Difficulty sitting up.
Also c/o diarrhea x 3- 4 already.
No cough/SOB
Vital Signs / Physical Exam
Vital Signs
Vital Signs
Temp Pulse Resp BP Pulse Ox
98.3 F 85 16 141/45 100
06/14/24 07:34 06/14/24 07:34 06/14/24 07:34 06/14/24 07:34 06/14/24 08:00
Physical Exam
Constitutional: Comfortable
Eyes: No Conjunctival Hemorrhage and Sclera Anicteric
Cardiovascular: Regular Rate and S1/S2
Pulmonary: Clear
Gastrointestinal: Soft, Non Tender and Non Distended
Neurological: AO x 3
Objective Data
Lab Data
Total Bilirubin 0.4 mg/dl (0.2-1.3) 06/11/24 17:07
AST 24 U/L (17-59) 06/11/24 17:07
ALT 16 U/L (0-50) 06/11/24 17:07
Alkaline Phosphatase 58 U/L (38-126) 06/11/24 17:07
Most recent labs reviewed.
Micro Results:
06/13/24 09:09 Blood Culture - Preliminary
Blood/Venous No Growth in 24 hours- Final report to follow
06/13/24 07:32 Blood Culture - Preliminary
Blood/Venous No Growth in 24 hours- Final report to follow
06/12/24 04:46 MRSA Screen - Final
Nose No Methicillin Resistant Staphylococcus aureus isolated.
06/13/24 CXR: Small bilateral pleural effusions, left greater than right. No evidence of congestive heart failure. No definite pneumonia.
[2024-06-14 12:22] LABS: Hematocrit 27.2 % (39.0-52.0); Hemoglobin 8.4 g/dL (13.0-18.0); Mean Corp Hgb Conc. 30.9 g/dL (33.0-37.0); Mean Corpuscular Hgb 28.1 pg (27.0-31.0); Mean Platelet Volume 9.5 fL (7.4-10.4); Platelet Count 262 10^3/uL (130-400); Red Blood Cell Count 2.99 10^6/uL (4.70-6.10); Red Cell Dist. Width 19.6 % (11.5-14.5); White Blood Cell Count 5.4 10^3/uL (4.8-10.8)
[2024-06-14 12:37] LABS: Carbon Dioxide 24 mmol/L (22-30); Chloride 96 mmol/L (98-107); Potassium 4.2 mmol/L (3.5-5.1); Sodium 133 mmol/L (135-145)
[2024-06-14] MEDS: FLEXBUMIN 25% FOR HEMODIALYSIS 12.5 GRAMS IV (12:40)
[2024-06-14] MEDS: RETACRIT 10000 UNITS IV (12:49)
--- NOTE | 2024-06-14 13:13 | W.PN.NEPH.HD ---
Addendum entered and electronically signed by Jeffrey Neumann DO 06/14/24 13:21:
change bath to 3k
moderate diarrhea this am
changed u/f to even
Original Note:
Assessment
-
Patient on HD
sbp stable at u/f
HD via perm cath
Progress Note - Hemodialysis
-
Date of Service: June 14, 2024
Duration: 30 minutes and 3 hours
Potassium Bath: 2
Calcium Bath: 2.5
Opti-Dialyzer: 160
Ultrafiltration: Other (1-2kg)
Blood Flow: 400
Dialysate Flow: 600
Heparin: none
EPO: 10K
--- NOTE | 2024-06-14 13:50 | WOUNDNOTE ---
[facility] RN note: Patient admitted with missed HD, Covid +. Patient has left [facility] without HD set up. He stated he is willing to go back to [facility].
See H&P for complete history.
PMH: VDRF, ASCVD, bilateral AKA, HTN, renal cell ca, L nephrectomy, ESRD on HD, seizure disorder, bilateral UE DVT, prostate CA, s/p radiation therapy, fem fem bypass, cardiac stents, on Eliquis.
Wound Location and type/assessment: Patient admitted with: stage 2 sacral pressure injury, R buttocks linear dermal wound suspect r/t diaper cutting into his skin/pressure. Penis head dermal opening, s/p surgical procedure for Phimosis by
Victor M on 05/16/24 and also MASD. Patient having recent diarrhea. +Covid.
Appetite: good.
Pressure redistribution devices in place: [employer] Accumax. He cannot turn self in bed.
Plan: Dr. Holm was in and removed loose suture from penis. ANDI Lea applied Calazime to patient's penis MASD. Calazime and non woven gauze applied to lower sacral and R buttocks wounds. Waffle air overlay and patient turned to L semi side
lying position with help from ANDI Lea. Air chair cushion given.
Confirmed orders with Dr. Holm.
Care plan to be updated and will follow as needed.
Note to case management of equipment requested for discharge: Air mattress at SNF.
Recommend follow up at wound care center upon discharge.
--- NOTE | 2024-06-14 14:36 | CM ---
Addendum entered by Pattie Monterroso 06/14/24 15:31:
Per WOC, pt will require air mattress at SNF
Original Note:
CM reviewed chart and left two VMs for niece, call straight to VM
Attempted multiple calls to pt's bedside phone and no answer
CM requested nurse provide CM name and number to have pt call bedside
Per chart review, pt was at [facility] with new HD needs and left AMA
Outpatient HD was not arranged prior leaving SNF
Per chart review, pt resides with his niece
Pt has B/L AKA and was independent with transfers into
Likely has a stairglide, dilia and power WC per prior admission notes
Per nursing, has wound needs
During last admission, pt was referred to [facility] but needed SNF on dc
Pt remains a 2 person max assist
Will need further discussion with pt and/or niece regarding dispo planning
Of note, pt COVID+ 06/13 and on precautions
Discharge Disposition- anticipate SNF with HD
[2024-06-14] MEDS: HEPARIN 3900 UNITS INTRACATH (15:08)
--- NOTE | 2024-06-14 15:10 | W.PN.HOSP.TC ---
Today's Communication/Plan
-
HD
Supportive care.
COVID isolation
Assessment / Plan
Assessment / Plan
COVID antigen-positive with no respiratory symptoms
Continue monitoring and isolation.
Fever on presentation with otherwise negative ID workup.
Monitor for recurrent aspiration
# ESRD on HD
Not in respiratory distress
Per nephrology : cannot use UE edema as gauge of volume given DVT
-Appreciate Nephrology
-Consult Case Management for discharge planning for SNF with dialysis
# Discharge planning
Pt was discharged on 06/09 to [facility], he stayed there for a day or so and signed himself out. He presented to ER.
Per nephrology: previously discussed with the patient and his sister at great length. There are few options that we will be available to him because he requires dialysis. He may need to except return to [facility] if they will take him back.
Other options would be [facility] or [facility] for she was living. These options were explored previously on his last hospitalization. His niece had asked the visit facilities and had ultimately decided to except a [facility] given only
availability.
consulted employment evaluator/case manager
# hyperkalemia, treated through hemodialysis.
# Anemia of chronic disease
Stable HGB
# Severe PVD s/p Bilateral AKA
-Continue aspirin
# Essential Hypertension
-Continue Coreg, and Hydralazine
#Hyperlipidemia
-Continue Crestor
# Hypothyroidism with recent Myxedema Coma
-Continue levothyroxine
# Seizure Disorder
-Continue Keppra
Bilateral Upper Ext DVT in May 2024
-Continue Eliquis
Hx Renal Cell Carcinoma s/p Nephrectomy
Hx Prostate Cancer s/p Radiation
Code Status: Full Code
Anticipated Discharge: 24 - 48 hours
Subjective/Interval History
-
Date of Service: June 14, 2024
Objective Data
-
Labs:
Laboratory Results
06/14/24
12:17
WBC 5.4
Hgb 8.4 L
Hct 27.2 L
Plt Count 262
Sodium 133 L
Potassium 4.2
Chloride 96 L
Carbon Dioxide 24
Vital Signs:
Vital Signs
Temp Pulse Resp BP Pulse Ox
98.3 F 85 16 141/45 100
06/14/24 07:34 06/14/24 07:34 06/14/24 07:34 06/14/24 07:34 06/14/24 08:00
I&O
06/13/24 06/14/24 06/15/24
06:59 06:59 06:59
Intake Total 1050 / 1050
Balance 1050 / 1050
Physical Exam
-
General: Well Nourished, No Apparent Distress, Comfortable, Conversant and Other (sleeping comfortably, easily awoken)
HEENT: Normocephalic and Atraumatic
Respiratory: Crackles (expiratory crackles bilaterally over anterior lung collins) and Non Labored Respirations
Cardiac: Regular Rhythm and S1/S2
GI: Soft, Nontender, Nondistended and Normal Bowel Sounds
Genito-urinary: Clear Urine and Stevenson
Musculoskeletal: No Clubbing and Edema, Right Upper Extrem (R hand +3 pitting edema)
Skin: Warm, Dry and IV Access / Catheter Site (R chest)
Neuro: Awake and Alert
Psych: Calm
[2024-06-14 15:24] VITALS: BP 168/91
[2024-06-14] MEDS: APRESOLINE 50 MG PO (15:30)
--- NOTE | 2024-06-14 15:32 | WOUNDNOTE ---
WOC RN Note: Bill Monterroso re: commend an air mattress at SNF if not already in place. Patient has stage 2 sacral/buttocks pressure injuries.
[2024-06-14] MEDS: XALATAN OPHTHALMIC SOLUTION 1 DROP OPHTH (17:35)
[2024-06-14 18:45] LABS: Hepatitis B Surface Antigen Negative (Negative)
[2024-06-14] MEDS: MOLNUPIRAVIR (EUA) 800 MG PO (21:20)
[2024-06-14] MEDS: CRESTOR 10 MG PO (21:21)
[2024-06-14] MEDS: COREG 6.25 MG PO (21:21)
[2024-06-14] MEDS: TRUSOPT 2% OPHTHALMIC SOLUTION 1 DROP BOTH EYES (21:21)
[2024-06-14 22:30] VITALS: BP 141/83
[2024-06-15 05:39] VITALS: BMI 55.1
[2024-06-15] MEDS: SYNTHROID 75 MCG PO (06:17)
[2024-06-15 07:25] VITALS: BP 154/80
[2024-06-15] MEDS: ELIQUIS 5 MG PO ×2 (07:27→23:00)
[2024-06-15] MEDS: MIRALAX PO (07:27)
[2024-06-15] MEDS: APRESOLINE 50 MG PO ×2 (07:27→16:14)
[2024-06-15] MEDS: KEPPRA 500 MG PO ×2 (07:27→23:00)
[2024-06-15] MEDS: ASPIR LOW (ENTERIC COATED) 81 MG PO (07:27)
[2024-06-15] MEDS: COREG 6.25 MG PO ×2 (07:27→23:00)
[2024-06-15] MEDS: ALPHAGAN P 0.15% EYE DROPS 1 DROP OPHTH (07:28)
[2024-06-15] MEDS: TRUSOPT 2% OPHTHALMIC SOLUTION 1 DROP BOTH EYES ×2 (07:28→23:00)
[2024-06-15 08:33] VITALS: BMI 56.4
[2024-06-15] MEDS: MOLNUPIRAVIR (EUA) 800 MG PO ×2 (09:18→23:00)
--- NOTE | 2024-06-15 10:09 | W.PN.ID1 ---
Date of Service
Date of Service: June 15, 2024
Today's Communication
Continue molnupiravir 800mg po bid x 5 days through 06/19/24 am.
Assessment / Plan
# Mild symptomatic COVID19 infection
-Unvaccinated.
-Fever resolved
- weakness and diarrhea improving
-CXR no PNA; no hypoxia
- ESRD on HD, avoid Paxlovid
- Continue molnupiravir 800mg po bid x 5 days through 06/19/24 am.
-COVID19 isolation through 06/23/24.
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
Severe PAD s/p Bilateral AKAs
Hypertension
Hyperlipidemia
Solitary Kidney with Renal Artery Stenosis
ESRD on HD
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
Hypothyroidism, hx myxedema coma
CAD s/p stents
Seizure Disorder
Bilateral Upper Ext DVT
Renal Cell Carcinoma s/p left nephrectomy
Prostate Cancer s/p Radiation
Right carotid artery stent
Chief Complaint
-: Other (COVID)
Subjective / Review of Systems
Not as weak. Diarrhea resolved.
Vital Signs / Physical Exam
Vital Signs
Vital Signs
Temp Pulse Resp BP Pulse Ox
98.6 F 87 17 154/80 99
06/15/24 07:25 06/15/24 07:25 06/15/24 07:25 06/15/24 07:25 06/15/24 07:25
Physical Exam
Constitutional: No Acute Distress and Comfortable
Pulmonary: Clear
Gastrointestinal: Soft, Non Tender and Non Distended
Neurological: AO x 3
Objective Data
Lab Data
Lab Results
06/14/24 12:17
06/14/24 12:17
Total Bilirubin 0.4 mg/dl (0.2-1.3) 06/11/24 17:07
AST 24 U/L (17-59) 06/11/24 17:07
ALT 16 U/L (0-50) 06/11/24 17:07
Alkaline Phosphatase 58 U/L (38-126) 06/11/24 17:07
Most recent labs reviewed.
Micro Results:
06/13/24 09:09 Blood Culture - Preliminary
Blood/Venous No Growth in 48 hours- Final report to follow
06/13/24 07:32 Blood Culture - Preliminary
Blood/Venous No Growth in 48 hours- Final report to follow
06/12/24 04:46 MRSA Screen - Final
Nose No Methicillin Resistant Staphylococcus aureus isolated.
06/13/24 CXR: Small bilateral pleural effusions, left greater than right. No evidence of congestive heart failure. No definite pneumonia.
--- NOTE | 2024-06-15 10:16 | CM ---
Addendum entered by Urmila Acuña 06/15/24 16:27:
TC to deb Calderon, referrals to [facility] and [facility].
Addendum entered by Urmila Acuña 06/15/24 14:52:
TC from [facility], they did an onsite evaluation and will be unable to accept the patient, his needs exceed their abilities and they think his needs would require a skilled level of care.
Juventino will update deb.
Addendum entered by Urmila Acuña 06/15/24 14:10:
Await TCB/test from [facility] to see if patient being accepted. [facility] emailed forms needing to be completed.
Addendum entered by Urmila Acuña 06/15/24 12:28:
Per Salazar from [facility], his liaison Juventino will be out to assess patient today between 1-2 pm.
Addendum entered by Urmila Acuña 06/15/24 12:20:
TC from [facility]- p# [phone] from [facility] requesting clinicals be faxed to [phone] attn Juventino Kapoor.
Clinicals faxed.
Original Note:
Spoke with patients deb Calderon.
She is is not interested in additional skilled facilities.
Yumiko is looking into [facility] [place]) and will be meeting with them today.
Per Yumiko she spoke with them and they would be able to arrange transport from facility to dialysis.
Yumiko would like [facility] in [place].
Per Yumiko patient has already been accepted at [facility] ([place]) CM verified with Garrett from [facility].
Per Garrett there are chair time available at [place], just justine anderson updated.
Yumiko would like PT/OT while at [facility].
Yumiko will contact CM after arrangements at [facility] are arranged, she is aware if will be private pay.
Plan: d/c once arrangements made and medically cleared.
--- NOTE | 2024-06-15 15:03 | W.PN.NEPH.PH ---
Today's Communication / Plan
-
dialysis tomorrow
Assessment/Plan
-
Impression:
HTN
Suspected seizures with tongue bite last admission
Hx of pericardial effusion s/p pericardiocentesis
ESRD
Macroglossia-severe hypothyroidism
PAD s/p b/l AKA and femoral stents
Renal artery stenosis of solitary kidney-deemed not a candidate for renal artery revasc with poor vascular
Hx of prostate CA
HLD
Glaucoma
Hx of GIB
Chronic anemia
monoclonal spike on SPEP
Stage 1 sacral wound
Diverticulosis
Coronary artery disease
Renal cancer with history of left nephrectomy
hx dorsal slit for alicea placement
Plan:
HD tomorrow, orders provided
will need rehab/SNF placement again.
previously discussed with the patient and his sister at great length. There are few options that we will be available to him because he requires dialysis. He may need to except return to [facility] if they will take him back. Other options
would be [facility] or [facility] for she was living. These options were explored previously on his last hospitalization. His niece had asked the visit facilities and had ultimately decided to except a [facility] given only availability.
PT/OT eval
cannot use UE edema as gauge of volume given DVT
follow hgb, on CAROL
-
-
Date of Service: June 15, 2024
CC / HPI / ROS
-
Chief Complaint:
ESRD
History of Present Illness:
tolerated HD yesterday on MWF schedule
BP stable
Review of Systems:
no CP/SOB
no fevers
Labs
-
Labs:
WBC 5.4 10^3/uL (4.8-10.8) 06/14/24 12:17
RBC 2.99 10^6/uL (4.70-6.10) L 06/14/24 12:17
Hgb 8.4 g/dL (13.0-18.0) L 06/14/24 12:17
Hct 27.2 % (39.0-52.0) L 06/14/24 12:17
Plt Count 262 10^3/uL (130-400) 06/14/24 12:17
Sodium 133 mmol/L (135-145) L 06/14/24 12:17
Potassium 4.2 mmol/L (3.5-5.1) 06/14/24 12:17
Chloride 96 mmol/L (98-107) L 06/14/24 12:17
Carbon Dioxide 24 mmol/L (22-30) 06/14/24 12:17
BUN 38 mg/dl (9-20) H 06/11/24 17:07
Creatinine 3.8 mg/dL (0.7-1.3) H 06/11/24 17:07
eGFR 15.33 06/11/24 17:07
Glucose 86 mg/dl (70-99) 06/11/24 17:07
Calcium 7.2 mg/dl (8.4-10.2) L 06/11/24 17:07
Albumin 3.0 g/dl (3.5-5.0) L 06/11/24 17:07
Physical Exam
-
Vital Signs:
Vital Signs
Temp Pulse Resp BP Pulse Ox
98.6 F 87 17 154/80 99
06/15/24 07:25 06/15/24 07:25 06/15/24 07:25 06/15/24 07:25 06/15/24 07:25
Cardiovascular:: Regular rate and rhythm
Respiratory:: Bilateral: Coarse
Extremity Edema:: None: Bilateral: (AKA)
Alicea Catheter: No
[2024-06-15 15:07] VITALS: BP 127/74
--- NOTE | 2024-06-15 16:25 | W.PN.HOSP.TC ---
Today's Communication/Plan
-
HD as per schedule.
Continue and complete molnupiravir.
Supportive care
Discharge planning
Assessment / Plan
Assessment / Plan
COVID antigen-positive with no respiratory symptoms
Continue monitoring and isolation.
Fever on presentation with otherwise negative ID workup.
Continue molnupiravir
Monitor for recurrent aspiration
# ESRD on HD
Not in respiratory distress
Per nephrology : cannot use UE edema as gauge of volume given DVT
-Appreciate Nephrology
-Consult Case Management for discharge planning for SNF with dialysis
# Discharge planning
Pt was discharged on 06/09 to [facility], he stayed there for a day or so and signed himself out. He presented to ER.
Per nephrology: previously discussed with the patient and his sister at great length. There are few options that we will be available to him because he requires dialysis. He may need to except return to [facility] if they will take him back.
Other options would be [facility] or [facility] for she was living. These options were explored previously on his last hospitalization. His niece had asked the visit facilities and had ultimately decided to except a [facility] given only
availability.
consulted case mgr
# hyperkalemia, treated through hemodialysis.
# Anemia of chronic disease
Stable HGB
# Severe PVD s/p Bilateral AKA
-Continue aspirin
# Essential Hypertension
-Continue Coreg, and Hydralazine
#Hyperlipidemia
-Continue Crestor
# Hypothyroidism with recent Myxedema Coma
-Continue levothyroxine
# Seizure Disorder
-Continue Keppra
Bilateral Upper Ext DVT in May 2024
-Continue Eliquis
Hx Renal Cell Carcinoma s/p Nephrectomy
Hx Prostate Cancer s/p Radiation
Code Status: Full Code
Anticipated Discharge: Within 24 hours
Subjective/Interval History
-
Date of Service: June 15, 2024
Objective Data
-
Vital Signs:
Vital Signs
Temp Pulse Resp BP Pulse Ox
98.2 F 78 18 127/74 99
06/15/24 15:07 06/15/24 15:07 06/15/24 15:07 06/15/24 15:07 06/15/24 15:07
I&O
06/14/24 06/15/24 06/16/24
06:59 06:59 06:59
Intake Total 1050 / 1050 480 / 480
Balance 1050 / 1050 480 / 480
Physical Exam
-
General: Well Nourished, No Apparent Distress, Comfortable, Conversant and Other (sleeping comfortably, easily awoken)
HEENT: Normocephalic and Atraumatic
Respiratory: Crackles (expiratory crackles bilaterally over anterior lung collins) and Non Labored Respirations
Cardiac: Regular Rhythm and S1/S2
GI: Soft, Nontender, Nondistended and Normal Bowel Sounds
Genito-urinary: Clear Urine and Stevenson
Musculoskeletal: No Clubbing and Edema, Right Upper Extrem (R hand +3 pitting edema)
Skin: Warm, Dry and IV Access / Catheter Site (R chest)
Neuro: Awake and Alert
Psych: Calm
[2024-06-15] MEDS: XALATAN OPHTHALMIC SOLUTION 1 DROP OPHTH (17:16)
[2024-06-15] MEDS: CRESTOR 10 MG PO (23:00)
[2024-06-15 23:05] VITALS: BP 142/78
[2024-06-16 06:00] VITALS: BMI 55.2
[2024-06-16] MEDS: SYNTHROID 75 MCG PO (06:23)
[2024-06-16] MEDS: APRESOLINE 50 MG PO ×4 (06:33→22:22)
[2024-06-16 07:21] VITALS: BP 130/73
[2024-06-16 07:21] LABS: Hematocrit 29.5 % (39.0-52.0); Hemoglobin 9.3 g/dL (13.0-18.0)
[2024-06-16 07:43] LABS: Carbon Dioxide 26 mmol/L (22-30); Chloride 98 mmol/L (98-107); Sodium 133 mmol/L (135-145)
--- NOTE | 2024-06-16 08:32 | CM ---
Addendum entered by Urmila Acuña 06/16/24 08:46:
TC from [facility] updated via locr
Original Note:
Text from niece she would like to go with [facility].
TC to Jaswinder, renal consult uploaded.
[facility] will review and let CM know if they can accept.
Plan: skilled rehab once medically stable.
[2024-06-16] MEDS: RETACRIT 10000 UNITS IV (09:07)
--- NOTE | 2024-06-16 09:13 | PN.CDI ---
CDI
- -
CDI:
Physician Documentation Request
Admit Date: 06/11/24 19:52
Dear Doctor Mihai,
06/14 WOCN note states 'Patient admitted with: stage 2 sacral pressure injury, R buttocks linear dermal wound suspected r/t diaper cutting into his skin/pressure.'
nephrology note reports a stage 1 sacral wound
Physician documentation of the type and location of wounds is required for compliant documentation. Based on the above clinical findings and your assessment, please clarify the following in your progress note:
1. Location of the ulcer/wound, including laterality.
2. Type (etiology) of ulcer/wound:
- Diabetic ulcer
- Arterial (ischemic) ulcer
- Traumatic wound
- Venous stasis ulcer
- Pressure (decubitus) ulcer
- Non-healing surgical wound
- Other
- Unable to determine
Use of terms such as suspected, likely, concern for, or probable (associated with a specific diagnosis that is being evaluated, monitored, or treated as if it exists) are acceptable and can be coded in the inpatient setting, when documented at the
time of discharge.
Thank you,
Anabel Torres RN, BSN
CDI Specialist
tiger text
Please use your independent medical judgment in providing your response.
*Source: National Pressure Ulcer Advisory Panel (NPUAP)
[2024-06-16] MEDS: HEPARIN 3900 UNITS INTRACATH (10:18)
--- NOTE | 2024-06-16 10:42 | W.PN.NEPH.HD ---
Assessment
-
Seen on HD. no complaints. now COVID. VSS, access ok
OP planning
Progress Note - Hemodialysis
-
Date of Service: June 16, 2024
Duration: 30 minutes and 3 hours
Potassium Bath: 3
Calcium Bath: 2.5
Opti-Dialyzer: 160
Ultrafiltration: Other (2kg)
Blood Flow: 400
Dialysate Flow: 600
Heparin: 0
EPO: [id number] units
[2024-06-16] MEDS: MIRALAX 17 GRAMS PO (11:10)
[2024-06-16] MEDS: ELIQUIS 5 MG PO ×2 (11:10→22:21)
[2024-06-16] MEDS: ASPIR LOW (ENTERIC COATED) 81 MG PO (11:10)
[2024-06-16] MEDS: MOLNUPIRAVIR (EUA) 800 MG PO ×2 (11:11→22:19)
[2024-06-16] MEDS: COREG 6.25 MG PO ×2 (11:11→22:21)
[2024-06-16] MEDS: KEPPRA 500 MG PO ×2 (11:11→22:21)
[2024-06-16] MEDS: ALPHAGAN P 0.15% EYE DROPS 1 DROP OPHTH (11:12)
[2024-06-16] MEDS: TRUSOPT 2% OPHTHALMIC SOLUTION 1 DROP BOTH EYES ×2 (11:13→22:19)
--- NOTE | 2024-06-16 14:30 | CM ---
Addendum entered by Tunde Blas 06/16/24 14:56:
According to pt is medically stable to be discharged.
CM called [facility] human resources coordinator and left a message to [facility] regarding accepting the pt. .
Original Note:
CM following re: discharge planning.
Reviewed pt's chart. HD today.
PT and OT evaluations noted - SNF level of care recommended.
Per CM note, pt and his niece preferred [facility] and [facility] is interested to offer a bed, referral made to both SNF and their onsite HD unit.
Awaiting for determination.
D/C plan: [facility] when medically stable.
CM will follow to assist pt with discharge to [facility] with HD treatment onsite.
[2024-06-16 15:11] VITALS: BP 125/67
--- NOTE | 2024-06-16 16:16 | W.PN.HOSP.TC ---
Today's Communication/Plan
-
Hemodialysis as per schedule.
Supportive care.
Placement pending disposition/bed availability.
Assessment / Plan
Assessment / Plan
COVID antigen-positive with no respiratory symptoms
Continue monitoring and isolation.
Fever on presentation with otherwise negative ID workup.
Continue molnupiravir
Monitor for recurrent aspiration
# ESRD on HD
Not in respiratory distress
Per nephrology : cannot use UE edema as gauge of volume given DVT
-Appreciate Nephrology
-Consult Case Management for discharge planning for SNF with dialysis
# Discharge planning
Pt was discharged on 06/09 to [facility], he stayed there for a day or so and signed himself out. He presented to ER.
Per nephrology: previously discussed with the patient and his sister at great length. There are few options that we will be available to him because he requires dialysis. He may need to except return to [facility] if they will take him back.
Other options would be [facility] or [facility] for she was living. These options were explored previously on his last hospitalization. His niece had asked the visit facilities and had ultimately decided to except a [facility] given only
availability.
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
# hyperkalemia, treated through hemodialysis.
# Anemia of chronic disease
Stable HGB
# Severe PVD s/p Bilateral AKA
-Continue aspirin
# Essential Hypertension
-Continue Coreg, and Hydralazine
#Hyperlipidemia
-Continue Crestor
# Hypothyroidism with recent Myxedema Coma
-Continue levothyroxine
# Seizure Disorder
-Continue Keppra
Bilateral Upper Ext DVT in May 2024
-Continue Eliquis
Hx Renal Cell Carcinoma s/p Nephrectomy
Hx Prostate Cancer s/p Radiation
Code Status: Full Code
Anticipated Discharge: 24 - 48 hours
Subjective/Interval History
-
Date of Service: June 16, 2024
Objective Data
-
Labs:
Laboratory Results
06/16/24
06:57
Hgb 9.3 L
Hct 29.5 L
Sodium 133 L
Potassium 4.0
Chloride 98
Carbon Dioxide 26
Vital Signs:
Vital Signs
Temp Pulse Resp BP Pulse Ox
98.0 F 90 17 125/67 98
06/16/24 15:11 06/16/24 15:11 06/16/24 15:11 06/16/24 15:11 06/16/24 15:11
I&O
06/15/24 06/16/24 06/17/24
06:59 06:59 06:59
Intake Total 480 / 480 600 / 600
Balance 480 / 480 600 / 600
Physical Exam
-
General: Well Nourished, No Apparent Distress, Comfortable, Conversant and Other (sleeping comfortably, easily awoken)
HEENT: Normocephalic and Atraumatic
Respiratory: Crackles (expiratory crackles bilaterally over anterior lung collins) and Non Labored Respirations
Cardiac: Regular Rhythm and S1/S2
GI: Soft, Nontender, Nondistended and Normal Bowel Sounds
Genito-urinary: Clear Urine and Stevenson
Musculoskeletal: No Clubbing and Edema, Right Upper Extrem (R hand +3 pitting edema)
Skin: Warm, Dry and IV Access / Catheter Site (R chest)
Neuro: Awake and Alert
Psych: Calm
[2024-06-16] MEDS: XALATAN OPHTHALMIC SOLUTION 1 DROP OPHTH (17:36)
[2024-06-16] MEDS: CRESTOR 10 MG PO (22:22)
[2024-06-16 22:34] VITALS: BP 126/61
[2024-06-17 04:50] VITALS: BMI 55.7
[2024-06-17] MEDS: SYNTHROID 75 MCG PO (06:41)
[2024-06-17 07:51] VITALS: BP 110/59
[2024-06-17] MEDS: ASPIR LOW (ENTERIC COATED) 81 MG PO (08:25)
[2024-06-17] MEDS: MIRALAX 17 GRAMS PO (08:25)
[2024-06-17] MEDS: COREG 6.25 MG PO ×2 (08:25→22:14)
[2024-06-17] MEDS: APRESOLINE PO (08:26)
[2024-06-17] MEDS: ELIQUIS 5 MG PO ×2 (08:26→22:15)
[2024-06-17] MEDS: KEPPRA 500 MG PO ×2 (08:26→22:14)
[2024-06-17] MEDS: TRUSOPT 2% OPHTHALMIC SOLUTION 1 DROP BOTH EYES ×2 (08:27→22:13)
[2024-06-17] MEDS: ALPHAGAN P 0.15% EYE DROPS 1 DROP OPHTH (08:27)
[2024-06-17] MEDS: MOLNUPIRAVIR (EUA) 800 MG PO ×2 (08:39→22:15)
--- NOTE | 2024-06-17 10:31 | CM ---
Addendum entered by Tudne Blas 06/17/24 14:54:
[facility] liaison Ace confirmed that pt is accepted for admission but his fIrst HD treatment can be provided on Friday.
[employer] Verifier and hospitalist are aware and a plan is to dialyze the pt on Friday and pt will be discharged to [facility] after HD treatment on Friday with the next HD treatment at [facility] onsite C unit on Friday.
CM updated discharge plan pt's deb Calderon, she expressed her agreement.
D/C plan: [facility] on Friday06/19/24 after HD treatment.
CM will follow to assist pt with discharge to [facility] on Friday after HD treatment.
Addendum entered by Tunde Blas 06/17/24 11:03:
Pt's deb Calderon is updated on discharge plan progress and she expressed her appreciation.
Original Note:
CM following re: discharge planning.
Reviewed pt's chart.
According to MD pt is medically stable for discharge.
CM spoke to [facility] liaison Ace and he confirmed that pt's referral in under review and requested pt's clinical with Hep panel and flow sheets faxed to [facility] HD onsite unit at [phone].
D/C plan: [facility] with onsite HD treatment. Awaiting for confirmation for accepting for SNF level of care and to HD onsite unit.
CM will follow to assit pt with discharge to [facility] and onsite HD treatment unit.
[2024-06-17 10:50] VITALS: BP 84/43
--- NOTE | 2024-06-17 11:26 | W.PN.NEPH.PH ---
Today's Communication / Plan
-
HD tomorrow
Assessment/Plan
-
Impression:
HTN
Suspected seizures with tongue bite last admission
Hx of pericardial effusion s/p pericardiocentesis
ESRD
Macroglossia-severe hypothyroidism
PAD s/p b/l AKA and femoral stents
Renal artery stenosis of solitary kidney-deemed not a candidate for renal artery revasc with poor vascular
Hx of prostate CA
HLD
Glaucoma
Hx of GIB
Chronic anemia
monoclonal spike on SPEP
Stage 1 sacral wound
Diverticulosis
Coronary artery disease
Renal cancer with history of left nephrectomy
hx dorsal slit for alicea placement
Plan:
HD tomorrow, orders provided
plan appears to be for [facility]. HD schedule should be TTS
-
-
Date of Service: June 17, 2024
CC / HPI / ROS
-
Chief Complaint:
ESRD
History of Present Illness:
tolerated HD yesterday on [facility] schedule
BP stable
Review of Systems:
no CP/SOB
no fevers
slightly confused
Labs
-
Labs:
WBC 5.4 10^3/uL (4.8-10.8) 06/14/24 12:17
RBC 2.99 10^6/uL (4.70-6.10) L 06/14/24 12:17
Hgb 9.3 g/dL (13.0-18.0) L 06/16/24 06:57
Hct 29.5 % (39.0-52.0) L 06/16/24 06:57
Plt Count 262 10^3/uL (130-400) 06/14/24 12:17
Sodium 133 mmol/L (135-145) L 06/16/24 06:57
Potassium 4.0 mmol/L (3.5-5.1) 06/16/24 06:57
Chloride 98 mmol/L (98-107) 06/16/24 06:57
Carbon Dioxide 26 mmol/L (22-30) 06/16/24 06:57
BUN 38 mg/dl (9-20) H 06/11/24 17:07
Creatinine 3.8 mg/dL (0.7-1.3) H 06/11/24 17:07
eGFR 15.33 06/11/24 17:07
Glucose 86 mg/dl (70-99) 06/11/24 17:07
Calcium 7.2 mg/dl (8.4-10.2) L 06/11/24 17:07
Albumin 3.0 g/dl (3.5-5.0) L 06/11/24 17:07
Physical Exam
-
Vital Signs:
Vital Signs
Temp Pulse Resp BP Pulse Ox
97.4 F 78 18 84/43 98
06/17/24 10:50 06/17/24 10:50 06/17/24 10:50 06/17/24 10:50 06/17/24 10:50
Cardiovascular:: Regular rate and rhythm
Respiratory:: Bilateral: Coarse
Lung Excursion:: Normal
Abdomen:: Nontender and Soft
Bowel Sounds:: Normal
Extremity Edema:: +2: Bilateral:
--- NOTE | 2024-06-17 12:06 | W.PN.ID1 ---
Date of Service
Date of Service: June 17, 2024
Today's Communication
- Continue molnupiravir 800mg po bid x 5 days through 06/19/24 am.
-COVID19 isolation through 06/23/24.
- ID will sign off.
Assessment / Plan
# Mild symptomatic COVID19 infection
-Unvaccinated.
-Fever resolved
- weakness and diarrhea resolved.
-CXR no PNA; no hypoxia
- ESRD on HD, avoid Paxlovid
- Continue molnupiravir 800mg po bid x 5 days through 06/19/24 am.
-COVID19 isolation through 06/23/24.
ID will sign off.
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
Severe PAD s/p Bilateral AKAs
Hypertension
Hyperlipidemia
Solitary Kidney with Renal Artery Stenosis
ESRD on HD
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
Hypothyroidism, hx myxedema coma
CAD s/p stents
Seizure Disorder
Bilateral Upper Ext DVT
Renal Cell Carcinoma s/p left nephrectomy
Prostate Cancer s/p Radiation
Right carotid artery stent
Chief Complaint
-: Other (COVID)
Subjective / Review of Systems
Feels good. No cough/SOB/diarrhea.
Vital Signs / Physical Exam
Vital Signs
Vital Signs
Temp Pulse Resp BP Pulse Ox
97.4 F 78 18 84/43 98
06/17/24 10:50 06/17/24 10:50 06/17/24 10:50 06/17/24 10:50 06/17/24 10:50
Physical Exam
Constitutional: No Acute Distress and Comfortable
Cardiovascular: Regular Rate
Pulmonary: Clear
Gastrointestinal: Soft, Non Tender and Non Distended
Neurological: AO x 3
Lines: HD Cath
Objective Data
Lab Data
Lab Results
06/16/24 06:57
06/16/24 06:57
Total Bilirubin 0.4 mg/dl (0.2-1.3) 06/11/24 17:07
AST 24 U/L (17-59) 06/11/24 17:07
ALT 16 U/L (0-50) 06/11/24 17:07
Alkaline Phosphatase 58 U/L (38-126) 06/11/24 17:07
Most recent labs reviewed.
Micro Results:
06/13/24 09:09 Blood Culture - Preliminary
Blood/Venous No Growth in 4 days- Final report to follow
06/13/24 07:32 Blood Culture - Preliminary
Blood/Venous No Growth in 4 days- Final report to follow
06/12/24 04:46 MRSA Screen - Final
Nose No Methicillin Resistant Staphylococcus aureus isolated.
06/13/24 CXR: Small bilateral pleural effusions, left greater than right. No evidence of congestive heart failure. No definite pneumonia.
--- NOTE | 2024-06-17 14:17 | W.PN.HOSP.TC ---
Today's Communication/Plan
-
Pending placement
Noted with hypotension. Continue Coreg with caution. Hold hydralazine
Assessment / Plan
Assessment / Plan
COVID antigen-positive with no respiratory symptoms
Continue monitoring and isolation.
Fever on presentation with otherwise negative ID workup.
Continue molnupiravir
Monitor for recurrent aspiration
# ESRD on HD
Not in respiratory distress
Per nephrology : cannot use UE edema as gauge of volume given DVT
-Appreciate Nephrology
-Consult Case Management for discharge planning for SNF with dialysis
# Discharge planning
Pt was discharged on 06/09 to [facility], he stayed there for a day or so and signed himself out. He presented to ER.
Per nephrology: previously discussed with the patient and his sister at great length. There are few options that we will be available to him because he requires dialysis. He may need to except return to [facility] if they will take him back.
Other options would be [facility] or [facility] for she was living. These options were explored previously on his last hospitalization. His niece had asked the visit facilities and had ultimately decided to except a [facility] given only
availability.
consulted director case
# hyperkalemia, treated through hemodialysis.
# Anemia of chronic disease
Stable HGB
# Severe PVD s/p Bilateral AKA
-Continue aspirin
# Essential Hypertension
-Continue Coreg, and Hydralazine
#Hyperlipidemia
-Continue Crestor
# Hypothyroidism with recent Myxedema Coma
-Continue levothyroxine
# Seizure Disorder
-Continue Keppra
Bilateral Upper Ext DVT in May 2024
-Continue Eliquis
Hx Renal Cell Carcinoma s/p Nephrectomy
Hx Prostate Cancer s/p Radiation
Code Status: Full Code
Anticipated Discharge: Within 24 hours
Subjective/Interval History
-
Date of Service: June 17, 2024
Objective Data
-
Vital Signs:
Vital Signs
Temp Pulse Resp BP Pulse Ox
97.4 F 78 18 84/43 98
06/17/24 10:50 06/17/24 10:50 06/17/24 10:50 06/17/24 10:50 06/17/24 10:50
I&O
06/16/24 06/17/24 06/18/24
06:59 06:59 06:59
Intake Total 600 / 600 1020 / 1020
Balance 600 / 600 1020 / 1020
Physical Exam
-
General: Well Nourished, No Apparent Distress, Comfortable, Conversant and Other (sleeping comfortably, easily awoken)
HEENT: Normocephalic and Atraumatic
Respiratory: Crackles (expiratory crackles bilaterally over anterior lung collins) and Non Labored Respirations
Cardiac: Regular Rhythm and S1/S2
GI: Soft, Nontender, Nondistended and Normal Bowel Sounds
Genito-urinary: Clear Urine and Stevenson
Musculoskeletal: No Clubbing and Edema, Right Upper Extrem (R hand +3 pitting edema)
Skin: Warm, Dry and IV Access / Catheter Site (R chest)
Neuro: Awake and Alert
Psych: Calm
[2024-06-17 15:06] VITALS: BP 117/65
[2024-06-17] MEDS: XALATAN OPHTHALMIC SOLUTION 1 DROP OPHTH (17:54)
[2024-06-17] MEDS: CRESTOR 10 MG PO (22:13)
[2024-06-17 23:49] VITALS: BP 148/76
[2024-06-18 06:00] VITALS: BMI 53.4
[2024-06-18] MEDS: SYNTHROID 75 MCG PO (06:42)
[2024-06-18 07:35] VITALS: BP 125/70
[2024-06-18] MEDS: MOLNUPIRAVIR (EUA) 800 MG PO ×2 (10:29→22:05)
[2024-06-18] MEDS: MIRALAX 17 GRAMS PO (10:29)
[2024-06-18] MEDS: ASPIR LOW (ENTERIC COATED) 81 MG PO (10:29)
[2024-06-18] MEDS: ELIQUIS 5 MG PO ×2 (10:29→22:06)
[2024-06-18] MEDS: ALPHAGAN P 0.15% EYE DROPS 1 DROP OPHTH (10:30)
[2024-06-18] MEDS: KEPPRA 500 MG PO ×2 (10:30→22:05)
[2024-06-18] MEDS: COREG 6.25 MG PO ×2 (10:30→22:06)
[2024-06-18] MEDS: TRUSOPT 2% OPHTHALMIC SOLUTION 1 DROP BOTH EYES ×2 (11:08→22:06)
--- NOTE | 2024-06-18 11:54 | CM ---
Addendum entered by Tunde Blas 06/18/24 14:27:
[facility] will arrange transportation after HD treatment tomorrow 06/19/24. PMNC completed and left on the chart.
[facility] nursing report: [phone]
Discharge instructions fax: [phone]
D/C plan: [facility] tomorrow 06/19/24 with onsite [facility] HD treatment starting Friday06/22/24. Pt will need ambulance transport.
CM will follow to assist pt with discharge to [facility] tomorrow with outpatient onsite [facility] HD treatment unit
Original Note:
CM following re: discharge planning.
Reviewed pt's chart, spoke to pt's niece Yumiko CARMICHAEL over the phone to update on discharge plan progress. IMM reviewed, placed on chart, pt has a copy.
CM spoke to [facility] liaison Ace [phone] and he confirmed that pt is accepted for admission to [facility] tomorrow 06/19/24 after HD treatment and pt will have 1st HD outpatient treatment at [facility] onsite unit on
Friday.
CM discussed it with marketing editor, pt will have HD treatment today and tomorrow and can be discharged to [facility] tomorrow after HD treatment. Hospitalist is aware.
[facility] nursing report: [phone]
Discharge instructions fax: [phone]
D/C plan: [facility] tomorrow 06/19/24 with onsite [facility] HD treatment starting Friday06/22/24. Pt will need ambulance transport.
CM will follow to assist pt with discharge to [facility] tomorrow with outpatient onsite [facility] HD treatment unit
[2024-06-18] MEDS: MANNITOL 25% 12.5 GRAMS IV (12:20)
[2024-06-18] MEDS: FLEXBUMIN 25% FOR HEMODIALYSIS 12.5 GRAMS IV (12:25)
[2024-06-18] MEDS: RETACRIT 10000 UNITS IV (12:27)
[2024-06-18 12:39] LABS: Hematocrit 28.4 % (39.0-52.0); Hemoglobin 8.8 g/dL (13.0-18.0)
[2024-06-18 12:45] LABS: Carbon Dioxide 26 mmol/L (22-30); Chloride 96 mmol/L (98-107); Potassium 3.9 mmol/L (3.5-5.1); Sodium 134 mmol/L (135-145)
--- NOTE | 2024-06-18 12:49 | W.PN.NEPH.HD ---
Assessment
-
Patient on HD
sbp stable at current u/f
catheter with adequate function
Progress Note - Hemodialysis
-
Date of Service: June 18, 2024
Duration: 2 hours
Potassium Bath: 3
Calcium Bath: 2.5
Opti-Dialyzer: 160
Ultrafiltration: Other (1.5-2kg)
Blood Flow: 400
Dialysate Flow: 600
Heparin: none
EPO: 10,000
[2024-06-18] MEDS: HEPARIN 4200 UNITS INTRACATH (14:51)
[2024-06-18 15:17] VITALS: BP 121/62
--- NOTE | 2024-06-18 15:59 | W.PN.HOSP.TC ---
Addendum entered and electronically signed by Jelani Holm MD 06/21/24 16:07:
stage 2 sacral pressure injury, R buttocks linear dermal wound suspected r/t diaper cutting into his skin/pressure.'
Original Note:
Today's Communication/Plan
-
HD today and tomorrow.
If medically stable will be discharged to [facility] for [facility] on 06/19 with next HD on Friday 06/22
Assessment / Plan
Assessment / Plan
COVID antigen-positive with no respiratory symptoms
Continue monitoring and isolation.
Fever on presentation with otherwise negative ID workup.
Continue molnupiravir
Monitor for recurrent aspiration
# ESRD on HD
Not in respiratory distress
Per nephrology : cannot use UE edema as gauge of volume given DVT
-Appreciate Nephrology
-Consult Case Management for discharge planning for SNF with dialysis
# Discharge planning
Pt was discharged on 06/09 to [facility], he stayed there for a day or so and signed himself out. He presented to ER.
Per nephrology: previously discussed with the patient and his sister at great length. There are few options that we will be available to him because he requires dialysis. He may need to except return to [facility] if they will take him back.
Other options would be [facility] or [facility] for she was living. These options were explored previously on his last hospitalization. His niece had asked the visit facilities and had ultimately decided to except a [facility] given only
availability.
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
# hyperkalemia, treated through hemodialysis.
# Anemia of chronic disease
Stable HGB
# Severe PVD s/p Bilateral AKA
-Continue aspirin
# Essential Hypertension
-Continue Coreg, and Hydralazine
#Hyperlipidemia
-Continue Crestor
# Hypothyroidism with recent Myxedema Coma
-Continue levothyroxine
# Seizure Disorder
-Continue Keppra
Bilateral Upper Ext DVT in May 2024
-Continue Eliquis
Hx Renal Cell Carcinoma s/p Nephrectomy
Hx Prostate Cancer s/p Radiation
Code Status: Full Code
Anticipated Discharge: Within 24 hours
Subjective/Interval History
-
Date of Service: June 18, 2024
Objective Data
-
Labs:
Laboratory Results
06/18/24
12:23
Hgb 8.8 L
Hct 28.4 L
Sodium 134 L
Potassium 3.9
Chloride 96 L
Carbon Dioxide 26
Vital Signs:
Vital Signs
Temp Pulse Resp BP Pulse Ox
98.1 F 77 17 121/62 99
06/18/24 15:17 06/18/24 15:17 06/18/24 15:17 06/18/24 15:17 06/18/24 15:17
I&O
06/17/24 06/18/24 06/19/24
06:59 06:59 06:59
Intake Total 1020 / 1020 240 / 240
Balance 1020 / 1020 240 / 240
Physical Exam
-
General: Well Nourished, No Apparent Distress, Comfortable, Conversant and Other (sleeping comfortably, easily awoken)
HEENT: Normocephalic and Atraumatic
Respiratory: Crackles (expiratory crackles bilaterally over anterior lung collins) and Non Labored Respirations
Cardiac: Regular Rhythm and S1/S2
GI: Soft, Nontender, Nondistended and Normal Bowel Sounds
Genito-urinary: Clear Urine and Stevenson
Musculoskeletal: No Clubbing and Edema, Right Upper Extrem (R hand +3 pitting edema)
Skin: Warm, Dry and IV Access / Catheter Site (R chest)
Neuro: Awake and Alert
Psych: Calm
--- NOTE | 2024-06-18 16:03 | W.DS.TRANS ---
DC Summary - Tray Server
-
Discharge Instructions:
Discharge Diagnosis/Procedures COVID antigen positive
1. Metabolic encephalopathy secondary to
myxedema coma, severe
hypothyroidism.
2. Ventilatory-dependent respiratory failure
secondary to above.
3. Nosocomial and aspiration pneumonia.
4. Aspiration syndrome.
5. Hypertensive emergency.
6. Acute kidney injury with oliguria requiring
initiation of
hemodialysis.
7. Generalized seizure.
OTHER CONDITIONS: Including:
1. Chronic kidney disease.
2. Paraproteinemia with kappa lambda light
chains.
3. Solitary kidney.
4. Chronic hydronephrosis.
5. Coronary artery disease.
6. Essential hypertension.
7. Peripheral artery disease with history of
bilateral lower
extremity amputation.
8. History of renal carcinoma status post left
nephrectomy.
Diet 2 Gram Sodium
Instructions:
Stand-Alone Forms:
Changes to Home Medications: Yes
Discharge Medications:
DC Medications w/original date entered in [employer]
aspirin 81 mg tablet,delayed release 81 mg PO DAILY Heart disease/condition #0 tabs 03/26/24
carvedilol 6.25 mg tablet 6.25 mg PO BID Blood pressure #60 tabs 03/26/24
brimonidine 0.15 % eye drops 1 drp BOTH EYES DAILY Eye Condition 05/14/24
dorzolamide 2 % eye drops 1 drp BOTH EYES BID Eye Condition 05/14/24
latanoprost 0.005 % eye drops 1 drp BOTH EYES HS Eye condition 05/14/24
miconazole nitrate 2 % topical powder (Miconazorb AF) 1 applic topical BID groin 05/14/24
apixaban 5 mg tablet (Eliquis) 5 mg PO BID #60 tabs 06/09/24
levetiracetam 500 mg tablet (Keppra) 500 mg PO BID #60 tabs 06/09/24
levothyroxine 75 mcg tablet 75 mcg PO DAILY @ 0600 #30 tabs 06/09/24
polyethylene glycol 3350 17 gram oral powder packet (HealthyLax) 17 g PO DAILY #30 ea 06/09/24
rosuvastatin 10 mg tablet 10 mg PO HS High cholesterol 06/11/24
Home Medication Changes
Hydralazine discontinued
Pending Results: No
[2024-06-18] MEDS: XALATAN OPHTHALMIC SOLUTION 1 DROP OPHTH (17:00)
[2024-06-18] MEDS: CRESTOR 10 MG PO (22:05)
[2024-06-18 23:38] VITALS: BP 119/68
[2024-06-19] MEDS: SYNTHROID 75 MCG PO (05:48)
[2024-06-19 06:00] VITALS: BMI 52.9
[2024-06-19] MEDS: HEPARIN 500 UNITS IV ×2 (08:05→09:05)
--- NOTE | 2024-06-19 08:31 | W.PN.NEPH.HD ---
Assessment
-
Patient on HD
sbp stable at current u/f
Progress Note - Hemodialysis
-
Date of Service: June 19, 2024
Duration: 30 minutes and 2 hours
Potassium Bath: 3
Calcium Bath: 2.5
Opti-Dialyzer: 160
Ultrafiltration: EDW
Blood Flow: 400
Dialysate Flow: 600
Heparin: none
[2024-06-19 08:44] VITALS: BP 139/80
--- NOTE | 2024-06-19 09:59 | CM ---
Addendum entered by YONI Palmer 06/19/24 13:03:
left VM for niece on fern picker at 2-2:30 and spoke to Ace at [facility] .
Original Note:
Discussed Discharge with Rn. Plan remains for patient to go to [facility] after HD today.
Medical necessity transport forms in red folder in chart.
Cm will update [facility] and family once fern picker time known.
[facility] SNF nursing report: [phone]
Discharge instructions fax: [phone]
[2024-06-19] MEDS: HEPARIN 4200 UNITS INTRACATH (11:02)
[2024-06-19] MEDS: ASPIR LOW (ENTERIC COATED) 81 MG PO (11:11)
[2024-06-19] MEDS: KEPPRA 500 MG PO (11:11)
[2024-06-19] MEDS: COREG 6.25 MG PO (11:11)
[2024-06-19] MEDS: MIRALAX 17 GRAMS PO (11:11)
[2024-06-19] MEDS: ELIQUIS 5 MG PO (11:12)
[2024-06-19] MEDS: ALPHAGAN P 0.15% EYE DROPS 1 DROP OPHTH (11:12)
[2024-06-19] MEDS: MOLNUPIRAVIR (EUA) 800 MG PO (11:17)
[2024-06-19] MEDS: TRUSOPT 2% OPHTHALMIC SOLUTION 1 DROP BOTH EYES (11:17)
--- NOTE | 2024-06-19 12:28 | W.PN.HOSP.TC ---
Addendum entered and electronically signed by Kai Ledesma MD 06/20/24 15:45:
[id number]
Original Note:
Today's Communication/Plan
-
f/u bmp, TFTs outpatient
f/u GI, PCP, Neuro, Endo outpatient
Assessment / Plan
Assessment / Plan
#COVID antigen-positive with no respiratory symptoms
Continue monitoring and isolation.
Fever on presentation with otherwise negative ID workup.
Completed molnupiravir
Monitor for recurrent aspiration
# ESRD on HD
Not in respiratory distress
Per nephrology : cannot use UE edema as gauge of volume given DVT
-Appreciate Nephrology
-Consult Case Management for discharge planning for SNF with dialysis
# Discharge planning
Pt was discharged on 06/09 to [facility], he stayed there for a day or so and signed himself out. He presented to ER.
Per nephrology: previously discussed with the patient and his sister at great length. There are few options that we will be available to him because he requires dialysis. He may need to except return to [facility] if they will take him back.
Other options would be [facility] or [facility] for she was living. These options were explored previously on his last hospitalization. His niece had asked the visit facilities and had ultimately decided to except a [facility] given only
availability.
consulted rn case manager hospice
# hyperkalemia, treated through hemodialysis.
# Anemia of chronic disease
Stable HGB
-f/u gi outpt
# Severe PVD s/p Bilateral AKA
-Continue aspirin
# Essential Hypertension
-Continue Coreg
-stop Hydralazine
#Hyperlipidemia
-Continue Crestor
# Hypothyroidism with recent Myxedema Coma
-Continue levothyroxine
-f/u endo outpatient
# Seizure Disorder
-Continue Keppra
-f/u neuro outpatient
Bilateral Upper Ext DVT in May 2024
-Continue Eliquis
Hx Renal Cell Carcinoma s/p Nephrectomy
Hx Prostate Cancer s/p Radiation
Code Status: Full Code
More than 30 minutes spent in discharge including
Final examination of the patient
Summarizing hospital stay
Instructions for continuing care to all relevant caregivers
Preparation of discharge records, prescriptions, and referral forms
Total time spent (35 in minutes):
Anticipated Discharge: Within 24 hours
Subjective/Interval History
-
Date of Service: June 19, 2024
No acute events overnight
Objective Data
-
Vital Signs:
Vital Signs
Temp Pulse Resp BP Pulse Ox
98 F 71 19 149/72 99
06/19/24 08:44 06/19/24 11:11 06/19/24 08:44 06/19/24 11:11 06/19/24 08:44
I&O
06/18/24 06/19/24 06/20/24
06:59 06:59 06:59
Intake Total 240 / 240 540 / 540
Balance 240 / 240 540 / 540
Review of Systems
-
History Source: Patient
All other systems: Not reviewed unless documented
Physical Exam
-
General: Well Nourished, No Apparent Distress, Comfortable, Conversant and Other (sleeping comfortably, easily awoken)
HEENT: Normocephalic and Atraumatic
Respiratory: Crackles (expiratory crackles bilaterally over anterior lung collins) and Non Labored Respirations
Cardiac: Regular Rhythm and S1/S2
GI: Soft, Nontender, Nondistended and Normal Bowel Sounds
Genito-urinary: Clear Urine and Stevenson
Musculoskeletal: No Clubbing and Edema, Right Upper Extrem (R hand +3 pitting edema)
Skin: Warm, Dry and IV Access / Catheter Site (R chest)
Neuro: Awake and Alert
Psych: Calm
Data Reviewed
-
Diagnostic Radiology: Image personally visualized and interpreted and Report Reviewed by me
Labs: Labs Reviewed by me, Discussed with Physician and Discussed with Nurse
--- NOTE | 2024-06-19 12:32 | W.DS.TRANS ---
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
-
Discharge Instructions:
Discharge Diagnosis/Procedures COVID antigen positive
1. Metabolic encephalopathy secondary to
myxedema coma, severe
hypothyroidism.
2. Ventilatory-dependent respiratory failure
secondary to above.
3. Nosocomial and aspiration pneumonia.
4. Aspiration syndrome.
5. Hypertensive emergency.
6. Acute kidney injury with oliguria requiring
initiation of
hemodialysis.
7. Generalized seizure.
OTHER CONDITIONS: Including:
1. Chronic kidney disease.
2. Paraproteinemia with kappa lambda light
chains.
3. Solitary kidney.
4. Chronic hydronephrosis.
5. Coronary artery disease.
6. Essential hypertension.
7. Peripheral artery disease with history of
bilateral lower
extremity amputation.
8. History of renal carcinoma status post left
nephrectomy.
Diet 2 Gram Sodium,Low Cholesterol,Low Fat
Blood Work cbc, bmp in 3-5 days; TSH in 4-6 weeks
Others Tests US Doppler of UE to follow up with DVT in 4-6
Instructions:
Stand-Alone Forms:
Changes to Home Medications: Yes
Discharge Medications:
DC Medications w/original date entered in [facility]
aspirin 81 mg tablet,delayed release 81 mg PO DAILY Heart disease/condition #0 tabs 03/26/24
carvedilol 6.25 mg tablet 6.25 mg PO BID Blood pressure #60 tabs 03/26/24
brimonidine 0.15 % eye drops 1 drp BOTH EYES DAILY Eye Condition 05/14/24
dorzolamide 2 % eye drops 1 drp BOTH EYES BID Eye Condition 05/14/24
latanoprost 0.005 % eye drops 1 drp BOTH EYES HS Eye condition 05/14/24
miconazole nitrate 2 % topical powder (Miconazorb AF) 1 applic topical BID groin 05/14/24
apixaban 5 mg tablet (Eliquis) 5 mg PO BID #60 tabs 06/09/24
levetiracetam 500 mg tablet (Keppra) 500 mg PO BID #60 tabs 06/09/24
levothyroxine 75 mcg tablet 75 mcg PO DAILY @ 0600 #30 tabs 06/09/24
polyethylene glycol 3350 17 gram oral powder packet (HealthyLax) 17 g PO DAILY #30 ea 06/09/24
rosuvastatin 10 mg tablet 10 mg PO HS High cholesterol 06/11/24
Home Medication Changes
stop hydralazine
Pending Results: No
[2024-06-19 13:28] VITALS: BP 122/63
== END 2024-06-19 15:22 | DRG 682 ==
LOC: 3 WEST ACU 19:52
PROVIDERS: Internal Medicine; Nurse Practitioner; Nurse Practitioner Gerontology; Specialist; ADMITTING PHYSICIAN Hospitalist; ATTENDING PHYSICIAN Internal Medicine; CONSULT PHYSICIAN Internal Medicine; CONSULT PHYSICIAN Internal Medicine Infectious Disease; EMERGENCY PHYSICIAN Student in an Organized Health Care Education/Training Program; FAMILY PHYSICIAN Specialist
PROC: 5A1D70Z Performance of Urinary Filtration, Intermittent, Less than 6 Hours Per Day (ICD-10-PCS; 2024-06-12)
DX: I12.0 Hypertensive chronic kidney disease with stage 5 chronic kidney disease or end stage renal disease (principal); N18.6 End stage renal disease; U07.1 COVID-19; E11.22 Type 2 diabetes mellitus with diabetic chronic kidney disease; E87.5 Hyperkalemia; D89.2 Hypergammaglobulinemia, unspecified; E03.9 Hypothyroidism, unspecified; D63.1 Anemia in chronic kidney disease; Z89.612 Acquired absence of left leg above knee; Z89.611 Acquired absence of right leg above knee; Z85.528 Personal history of other malignant neoplasm of kidney; Z90.5 Acquired absence of kidney; Z85.46 Personal history of malignant neoplasm of prostate; L89.152 Pressure ulcer of sacral region, stage 2
CPT/HCPCS: 71046; 80051; 80053; 81003; 81015; 85014; 85018; 85025; 85027; 87040; 87070; 87340; 87811; 93005; 97163; 97167; 97530; 99284; G0257; P9047; Q5106

== ENCOUNTER 2024-08-22 13:31 | Emergency (ER) | payer MEDICARE, OTHER, SELFPAY ==
[2024-08-22 14:06] VITALS: BP 136/71
--- NOTE | 2024-08-22 14:33 | ED.GENMED ---
History of Present Illness
General
Chief Complaint: Catheter/Tube Problem
Source: patient
Exam Limitations: none
Time Seen by Provider: 08/22/24 14:13
Nursing documentation reviewed up to this point in time: agreed with
History of Present Illness
History of Present Illness:
Patient started on dialysis 2 months ago, evaluated at [facility] 2 weeks ago secondary to urinary retention requiring Stevenson catheter, presents to ED secondary to increased bladder spasm along with decreased urinary output noted earlier
today. Denies fever or chills. Denies nausea or vomiting. Patient has an appointment with Dr. Osullivan, urology, next week for consultation. Denies recent change in medications or diet.
Past History
Past History
ED Past Medical History: CAD, Cancer (Renal, prostate), HTN, Other (Peripheral arterial disease, anemia, TORSTEN) and Other (GI bleed); Negative CHF, CVA, Hypercholesterolemia, IDDM or NIDDM
ED Past Surgical History: Cardiac (Cardiac stents) and Urological (Kidney removal for renal cancer)
Social History
Tobacco: Non-smoker
Alcohol: None
Drug: None
Personal:
Living: with family
Employment: Retired
Family History
Family History: Hypertension
Review of Systems
Review of Systems
Allergies reviewed?: Yes
All Other Systems: ROS reviewed and negative except as documented in HPI and ROS
Constitutional: Reports no symptoms
Respiratory: Reports no symptoms
Cardiac: Reports no symptoms
ABD/GI: Reports abdominal pain; Denies nausea or vomiting
: Reports difficulty voiding
Musculoskeletal: Reports no symptoms
Skin: Reports no symptoms
Neurological: Reports no symptoms
Phy Exam
Physical Exam
Physical Exam:
Physical Exam
General: mild distress, not acutely ill. afebrile
Head: nc/at. eomi
Neck: supple. normal range of motion
Abdomen: normal bowel sounds. not tender.
Neuro: alert and oriented x 3. no focal neurological deficits
Skin: no rash
Psychiatric: well kept. interactive and cooperative
Extremities: b/l AKA
Course
Orders/Labs/Results
Orders:
Orders
08/22/24 14:13
Stevenson Placement- Treatment ONCE
Reason for insertion: Acute Retention
Stevenson Catheter [Catheter- Indwelling] As Directed
Reason for insertion: Acute Retention
Size: 20
Type: 3 way
Comment: coude
Discontinue Date/Time: 08/25/24 0600
08/22/24 14:33
CBI- Treatment PRN
Solution: NSS
Irrigate to Clear?: Yes
08/22/24 15:00
Urinalysis Reflex To Culture Urgent
Date Specimen was Collected: 08/22/24
Time Specimen was Collected: 14:42
Urine Microscopic Reflex Cult Urgent
08/22/24 16:31
Hydrocortisone [Hydrocortisone 1% Cream] See Dose Instructions TOPICAL NOW STA
08/22/24 19:05
Case Management Consult ONCE
Case Management Consult: VN/Home Care
Comment: Stevenson catheter management
Abnormal Lab Results
08/22/24
15:00
Ur Occult Blood Reflex 4+ A
(Negative)
Urine RBC >100 A /HPF
(0-2)
Urine Albumin (Reflex) 3+ A
(Neg - Trace)
Vital Signs
Initial and Last Documented VS:
Initial Vital Signs
Temp Pulse Resp BP Pulse Ox
97.6 F 86 20 136/71 96
08/22/24 14:06 08/22/24 14:06 08/22/24 14:06 08/22/24 14:06 08/22/24 14:06
Last Documented Vital Signs
Temp Pulse Resp BP Pulse Ox
97.6 F 78 20 200/80 95
08/22/24 14:06 08/22/24 19:13 08/22/24 19:13 08/22/24 19:13 08/22/24 19:13
MDM/Problems Addressed
MDM/Problems Addressed:
Will initial CBI via 3 way catheter and reassess.
CBI continued with near clear drainage noted. As such, decision made to discharge patient home with outpatient follow-up with his urologist, Dr. Osullivan. As patient and family not quite sure about why patient is currently taking Eliquis, hesitant
to discontinue even short-term at this time. As such, will advise patient to continue Eliquis at home as directed. However, did advise patient and family to speak with his primary care physician about the duration of treatment on Eliquis.
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 Recommends home RN visit. Case management consult placed.
*Critical Care Note
Total Time (30-74mins, 75-104mins- exclusive of procedures): Not Applicable
ED Attending Note
-
Portions of this chart may have been created with voice recognition software.� Occasional wrong word or��sound alike� substitutions may have occurred due to the inherent limitations of voice recognition software.
Discharge Plan
Departure
Patient Disposition: Home (Routine Discharge)
Date of Disposition: 08/22/24
Time of Disposition: 18:21
Patient with high blood pressure during this ER visit?: Yes
Condition: Good
Discharge Problem:
Stevenson catheter problem
Instructions: How to Care for Your Stevenson Catheter, Male
Prescriptions:
No Action
carvedilol 6.25 mg Tablet
6.25 mg PO BID Qty: 60 0RF
aspirin 81 MG tablet,delayed release (DR/EC)
81 mg PO DAILY Qty: 0 0RF
brimonidine 0.15 % Drops
1 drp BOTH EYES DAILY
dorzolamide 2 % Drops
1 drp BOTH EYES BID
latanoprost 1 DROP drops
1 drp BOTH EYES HS
miconazole nitrate [Miconazorb AF] 2 % powder
1 applic topical BID
Eliquis 5 mg Tablet
5 mg PO BID Qty: 60 0RF
polyethylene glycol 3350 [HealthyLax] 17 gram Powder In Packet
17 g PO DAILY Qty: 30 0RF
levothyroxine 75 mcg Tablet
75 mcg PO DAILY @ 0600 Qty: 30 0RF
levetiracetam [Keppra] 500 mg tablet
500 mg PO BID Qty: 60 0RF
rosuvastatin 10 MG tablet
10 mg PO HS
Referrals:
Teodoro Jones MD [Family Provider] -
Cheikh Osullivan Jr., MD [Active] -
Activity Restrictions/Additional Instructions:
As discussed, please follow-up with your urologist for further evaluation and treatment.
Interventions
Interventions:
*Risk Screen - Suicide Last Done: 08/22/24 14:06
*General Assessment Last Done: 08/22/24 14:06
*Neglect/Abuse Screening Last Done: 08/22/24 14:06
ED- Fall Risk Assessment Last Done: 08/22/24 14:06
*ED COVID-19 Vaccine History Last Done: 08/22/24 14:06
*Nursing Disposition Last Done: 08/22/24 19:25
IO-Wdgqoa-Ykopwrxrjx Assessment Last Done: 08/22/24 14:06
ED-Male Genitourinary Assessment Last Done: 08/22/24 14:06
Discharge Date and Time
Discharge Date/Time: 08/22/24 19:26
Print Language: SOMALI
[2024-08-22 15:21] LABS: Urine Albumin 3+ (Neg - Trace); Urine Bilirubin Negative (Negative); Urine Character Bloody (Clear); Urine Color Red; Urine Glucose Negative (Negative); Urine Ketone Negative (Negative); Urine Leukocyte Negative (Negative); Urine Nitrite Negative (Negative); Urine Occult Blood 4+ (Negative); Urine Urobilinogen Negative (Neg - 1+)
[2024-08-22 15:51] LABS: Urine Red Blood Cell >100 /HPF (0-2)
[2024-08-22 16:36] VITALS: BP 183/80
--- NOTE | 2024-08-22 16:36 | EDRN ---
CBI currently still up and running, no c/o pain, hydrocortisone cream being sent by pharmacy
[2024-08-22] MEDS: HYDROCORTISONE 1% CREAM 1 APPLIC TOPICAL (18:00)
--- NOTE | 2024-08-22 18:26 | EDRN ---
CBI complete per the provider Dr. Vail, pt was switched to a leg bag, community specialist will set up the pts transport
--- NOTE | 2024-08-22 18:27 | EDRN ---
the pt continues to be hypertensive, provider Dr. Vail aware and no new orders received
[2024-08-22 19:13] VITALS: BP 200/80
--- NOTE | 2024-08-24 08:23 | CM ---
ED CM consulted for homecare set up after hours for [facility] care
Call with niece who confirmed pt is current with [facility] confirmed pt is active
No further CM follow up required
== END 2024-08-22 19:26 | disposition home or self-care (01) ==
LOC: EMR 13:31
PROVIDERS: EMERGENCY PHYSICIAN Emergency Medicine; FAMILY PHYSICIAN Internal Medicine
DX: T83.9XXA Unspecified complication of genitourinary prosthetic device, implant and graft, initial encounter (principal); X58.XXXA Exposure to other specified factors, initial encounter; I25.10 Atherosclerotic heart disease of native coronary artery without angina pectoris; I10 Essential (primary) hypertension; Z95.5 Presence of coronary angioplasty implant and graft; Z85.528 Personal history of other malignant neoplasm of kidney; Z90.5 Acquired absence of kidney; Z99.2 Dependence on renal dialysis; Z79.01 Long term (current) use of anticoagulants
CPT/HCPCS: 51700; 99283; 81003; 81015

== ENCOUNTER → 2024-09-09 14:58 | Outpatient (REF) | payer MEDICARE, OTHER, SELFPAY ==
[2024-09-09 16:56] LABS: Hematocrit 37.1 % (39.0-52.0)
[2024-09-09 17:35] LABS: Albumin 4.3 g/dl (3.5-5.0); Blood Urea Nitrogen 37 mg/dl (9-20); Calcium 9.9 mg/dl (8.4-10.2); Carbon Dioxide 25 mmol/L (22-30); Chloride 94 mmol/L (98-107); Glucose 83 mg/dl (70-99); Iron 66 ug/dl (49-181); Percent Saturation 32 % (20-50); Phosphorus 4.5 mg/dl (2.5-4.5); Potassium 4.9 mmol/L (3.5-5.1); Sodium 127 mmol/L (135-145); Total Iron Binding Capacity 202 ug/dl (261-462); eGFR 11.81
[2024-09-09 17:53] LABS: PSA, Total - Diagnostic 0.93 ng/ml (0.0-4.0); TSH Reflex To Free T4 6.12 uIU/ml (0.47-4.68)
[2024-09-09 18:20] LABS: Free T4 1.78 ng/dl (0.78-2.19)
== END ==
LOC: RAD 14:58
PROVIDERS: ATTENDING PHYSICIAN Surgery Vascular Surgery; FAMILY PHYSICIAN Internal Medicine; OTHER PHYSICIAN Specialist; REFERRING PHYSICIAN Specialist
DX: E03.9 Hypothyroidism, unspecified (principal); R97.21 Rising PSA following treatment for malignant neoplasm of prostate; C61 Malignant neoplasm of prostate; N18.32 Chronic kidney disease, stage 3b; D50.0 Iron deficiency anemia secondary to blood loss (chronic); I70.1 Atherosclerosis of renal artery; Q60.0 Renal agenesis, unilateral; I10 Essential (primary) hypertension; Z01.818 Encounter for other preprocedural examination
CPT/HCPCS: 36415; 80069; 82728; 83540; 83550; 84153; 84439; 84443; 85014; 85018; 93985

== ENCOUNTER 2024-09-16 05:57 | Day surgery (SDC) | payer MEDICARE, OTHER, SELFPAY ==
[2024-09-16] VITALS (10 sets, daily range): BP systolic 166–211; BP diastolic 71–86
[2024-09-16] MEDS: PERIDEX 0.12% ORAL RINSE 15 ML PO (06:38)
[2024-09-16] MEDS: BACTROBAN NASAL 1 GRAM NASAL (06:38)
[2024-09-16] MEDS: VANCOCIN 200 IV (07:03)
[2024-09-16 07:16] LABS: Hematocrit 36.7 % (39.0-52.0); Hemoglobin 11.6 g/dL (13.0-18.0); Mean Corp Hgb Conc. 31.6 g/dL (33.0-37.0); Mean Corpuscular Volume 88.6 fL (80.0-94.0); Mean Platelet Volume 9.9 fL (7.4-10.4); Platelet Count 147 10^3/uL (130-400); Red Blood Cell Count 4.14 10^6/uL (4.70-6.10); Red Cell Dist. Width 15.4 % (11.5-14.5); White Blood Cell Count 7.8 10^3/uL (4.8-10.8)
[2024-09-16 07:23] LABS: INR 0.99; PT 13.6 Sec (11.4-14.6)
[2024-09-16 07:24] LABS: APTT 34.7 Sec (23.4-35.0)
[2024-09-16 07:25] LABS: Blood Urea Nitrogen 24 mg/dl (9-20); Calcium 10.4 mg/dl (8.4-10.2); Carbon Dioxide 31 mmol/L (22-30); Chloride 97 mmol/L (98-107); Glucose 87 mg/dl (70-99); Potassium 4.3 mmol/L (3.5-5.1); Sodium 133 mmol/L (135-145); eGFR 15.24
--- NOTE | 2024-09-16 07:25 | W.SUR.PREOP ---
Pre-Operative Surgical Note
-
I have examined this patient prior to the performance of the scheduled procedure.
The patient's condition is unchanged from the time of the current History and
Physical and the patient is able to undergo the scheduled procedure.
--- NOTE | 2024-09-16 08:42 | W.SUR.POST ---
Surgical Immediate Post Op
Note
Pre Op Diagnosis: End-stage renal disease
Post Op Diagnosis: Same
Procedure Performed: Left upper extremity brachiocephalic AV fistula creation
Primary Surgeon: Param
Body Shop Worker: Rachid LOCO
Anesthesia: LMA
Estimated Blood Loss: 5 cc
Fluids: See anesthesia flowsheet
Drains/Shunts: None
Specimens/Cultures: None
Doppler/Duplex/Angio (Y/N): Y
Complications: None
Operative Findings: Palpable thrill upon completion
--- NOTE | 2024-09-16 08:57 | OR.RPT ---
Operative Report
Operative Report
PROCEDURE DATE: 09/16/2024
Preoperative diagnosis: End-stage renal disease on hemodialysis
Postoperative diagnosis: Same
Procedure: Left upper extremity brachiocephalic arteriovenous fistula creation
Surgeon: Param
Rn Team Leader: JAMIL Rashid, required for all aspects of procedure including assistance with traction/countertraction, following of suture line, assistance with closure.
Complications: None
Anesthesia: General
Indications for procedure:
End-stage renal disease on hemodialysis. Risk/benefits/alternatives of arteriovenous fistula access creation were discussed. He understood and wished to proceed.
Description of procedure:
Patient was identified brought to the operating room placed on the table in supine position. After the induction of anesthesia, I used an ultrasound to map the veins in the left upper extremity myself. The cephalic vein looked reasonable. There
had been an inadvertent IV placed in the vein, but that had been subsequently removed, and I felt the vein was still of reasonable caliber based on ultrasound. The basilic vein also looked somewhat reasonable, but it appeared to enter the deep
system more proximally in the arm. Therefore I felt cephalic vein would be adequate in the upper arm to attempt to use.
After the adequate administration of anesthesia and perioperative antibiotics he was prepped and draped in the standard surgical fashion. A standard preoperative timeout was undertaken and everybody was in agreement the plan. A transverse incision
was made in the proximal volar aspect of the forearm just distal to the antecubital fossa. This was carried through skin subcutaneous tissue. The antecubital extension of the cephalic vein was identified and carefully dissected away from
surrounding structures and great care to avoid any injury to structures. Any branches were ligated between silk ties and then divided. As such I was able to mobilize a suitable length of cephalic vein. The cephalic vein looked reasonable but felt
slightly sclerotic as if it may not distend as well. But size root it looked reasonable.
Once I had done this I then deepened my dissection in the medial aspect of the incision site through the fascial layer. The brachial artery was carefully identified and carefully dissected away from surrounding structures take great care to avoid
injury to structures. I passed a vessel loop around approximately. Next I gave the patient 2000 units of intravenous heparin. I then ligated the cephalic vein distally in my field with a silk tie and a clip. I then transected it. I distended
under heparinized saline. It distended reasonably, not is much as I like but still reasonably. In order to be sure I ran dilators through and 2 mm, 2.5 mm, 3 mm dilators were all passed through and ran through without any difficulty whatsoever
suggesting reasonable size of the vein.. I marked the anterior surface under distention to avoid any kinking or twisting. Next I tightened my double looped Vesseloops on the artery proximally and distally. I then made an arteriotomy with 11
blade extended using a Vasquez scissor. Artery wall was slightly thickened, but lumen was reasonably patent. I spatulated the cephalic vein and sewed an end to side anastomosis using a running 6-0 Prolene suture. I completed and tied down my suture
line. Next I released my bulldog clamp on the vein and then released my Vesseloops on the artery. There was a weak thrill in the fistula, but confirmed excellent Doppler signal. There was dopplerable signals at the wrist in the radial artery. At
this point I was very satisfied. I irrigated. I achieved and confirmed full hemostasis. I confirmed that the vein was not tethered at all in its outflow. We then closed in layers using 3-0 Vicryl deep dermal layer followed by 4-0 Monocryl
subcuticular stitch. Dermabond was applied. The patient tolerated the procedure well.
--- NOTE | 2024-09-16 10:20 | SUR.PHASEI ---
vss, bruit and thrill improved left arm fistula with warming and elevation of arm. Dr Virgen met on transport back to supervisor dental laboratory and updated.
== END 2024-09-16 11:21 | disposition home or self-care (01) ==
LOC: CATH 05:57
PROVIDERS: ATTENDING PHYSICIAN Surgery Vascular Surgery; OTHER PHYSICIAN Internal Medicine Cardiovascular Disease; PRIMARYCARE PHYSICIAN Physician Assistant
DX: N18.6 End stage renal disease (principal); Z99.2 Dependence on renal dialysis; Z79.01 Long term (current) use of anticoagulants; I12.0 Hypertensive chronic kidney disease with stage 5 chronic kidney disease or end stage renal disease; Z95.5 Presence of coronary angioplasty implant and graft; Z88.0 Allergy status to penicillin; Z88.1 Allergy status to other antibiotic agents; Z91.041 Radiographic dye allergy status; Z01.818 Encounter for other preprocedural examination
CPT/HCPCS: 36821; 80048; 85027; 85610; 85730; 86850; 86900; 86901

== ENCOUNTER → 2024-11-30 09:13 | Outpatient (REF) | payer MEDICARE, OTHER, SELFPAY | LOC: RAD 09:13 | PROVIDERS: ATTENDING PHYSICIAN Physician Assistant | DX: I77.0 Arteriovenous fistula, acquired (principal) | CPT/HCPCS: 93990 ==

== ENCOUNTER → 2025-01-04 13:26 | Outpatient (REF) | payer MEDICARE, OTHER, SELFPAY | LOC: RAD 13:26 | PROVIDERS: ATTENDING PHYSICIAN Surgery Vascular Surgery; FAMILY PHYSICIAN Internal Medicine | DX: I77.0 Arteriovenous fistula, acquired (principal) | CPT/HCPCS: 93990 ==

== ENCOUNTER → 2025-01-25 16:25 | Outpatient (REF) | payer MEDICARE, OTHER, SELFPAY | LOC: REG 16:25 | PROVIDERS: ATTENDING PHYSICIAN Internal Medicine | DX: E03.9 Hypothyroidism, unspecified (principal) | CPT/HCPCS: 36415; 84443 ==

== ENCOUNTER → 2025-03-03 08:30 | Outpatient (REF) | payer MEDICARE, OTHER, SELFPAY ==
[2025-03-03 09:02] VITALS: BP 192/79; BP_SYST 74
== END ==
LOC: RADI 08:30
PROVIDERS: ATTENDING PHYSICIAN Specialist
DX: Z49.01 Encounter for fitting and adjustment of extracorporeal dialysis catheter (principal); N18.6 End stage renal disease
CPT/HCPCS: 36589

== ENCOUNTER 2025-03-22 05:03 | Inpatient (IN) | payer MEDICARE, OTHER, SELFPAY ==
[2025-03-21 15:25] VITALS: BP 179/79
[2025-03-21 21:21] VITALS: BP 207/69
[2025-03-21 22:24] VITALS: BP 156/87
[2025-03-21 22:40] LABS: Hematocrit 32.8 % (39.0-52.0); Hemoglobin 10.8 g/dL (13.0-18.0); Mean Corp Hgb Conc. 32.9 g/dL (33.0-37.0); Mean Corpuscular Volume 88.9 fL (80.0-94.0); Nucleated Red Blood Cells % 0 % (-); Platelet Count 182 10^3/uL (130-400); Red Cell Dist. Width 14.1 % (11.5-14.5)
[2025-03-21 23:00] VITALS: BP 176/85
[2025-03-21 23:57] LABS: Blood Urea Nitrogen 77 mg/dl (9-20); Calcium 7.7 mg/dl (8.4-10.2); Carbon Dioxide 25 mmol/L (22-30); Chloride 99 mmol/L (98-107); Glucose 118 mg/dl (70-99); Sodium 132 mmol/L (135-145); eGFR 6.43
[2025-03-22] VITALS (20 sets, daily range): BP systolic 58–202; BP diastolic 49–91
--- NOTE | 2025-03-22 00:56 | ED.GENMED ---
History of Present Illness
General
Chief Complaint: Vascular Access Problem
Source: patient
Time Seen by Provider: 03/21/25 21:27
History of Present Illness
History of Present Illness:
Note:
CHIEF COMPLAINT(S)
Difficulty with dialysis access.
HISTORY OF PRESENT ILLNESS
The patient is an 79-year-old male with a history of end-stage renal disease on dialysis who presents with issues related to his arteriovenous (AV) graft for dialysis access. The patient reports that during todays dialysis session, there was no
palpable pulse or thrill over the AV graft located in the left arm, indicating a possible thrombosis or occlusion. He mentioned that the discomfort over the weekend was attributed to previous unsuccessful cannulation attempts, leading to multiple
needle insertions. The patient reports being without dialysis over the weekend and is concerned about exacerbating symptoms without prompt management.
Upon presentation, he had already attempted an ultrasound assessment but was informed that the correct sales service technician was not available. The patient anticipates an overnight stay for possible intervention by Dr. Virgen, pending the results of vascular
imaging and laboratory tests, specifically to evaluate potassium levels and overall renal function.
PAST MEDICAL AND SURGICAL HISTORY
- Known end-stage renal disease on dialysis.
- History of dialysis via AV graft.
CHRONIC MEDICAL CONDITIONS SIGNIFICANTLY AFFECTING CARE
End-stage renal disease requiring dialysis.
PHYSICAL EXAM
General: Alert, no acute distress.
Skin: Warm, dry.
Head: Normocephalic, atraumatic.
Neck: Supple, trachea midline.
Eye, Ears, Nose, Mouth, and Throat: Oral mucosa moist.
Cardiovascular: Normal peripheral perfusion, no edema.
Respiratory: Respirations are non-labored. Oxygen saturation noted to be 94% on room air.
Gastrointestinal : Abdomen nondistended.
Back: Normal range of motion, Normal alignment.
Musculoskeletal: Extremities with b/l LE amputations. Left upper extremity AV graft with no thrill
Neurological: Alert and oriented to person, place, time, and situation, no focal neurological deficit observed.
Psychiatric: Cooperative, appropriate mood & affect.
PROBLEM LIST
Acute:
- Dialysis AV graft malfunction/occlusion.
Chronic:
- End-stage renal disease on dialysis.
PLAN
- Order vascular ultrasound to evaluate the patency of the AV graft.
- Perform laboratory tests to assess electrolyte levels, including potassium.
- Prepare for possible intervention by Dr. Virgen to restore graft function.
- Consider temporary catheter placement if AV graft revision is not immediately feasible.
- Continuous monitoring of renal function and electrolyte balance.
DIFFERENTIAL DIAGNOSIS
The Differential Diagnosis includes, in no particular order and is not limited to:
- Thrombosed AV graft
- Infective endocarditis with potential emboli to graft
- Graft stenosis
- Venous hypertension
- Cannulation injury
- Hematoma or localized infection obstructing graft flow
- Systemic hypotension affecting graft flow
- Thrill loss due to large aneurysm formation
- Subclavian vein stenosis
Disposition:
SUMMARY OF ENCOUNTER
The patient, an 79-year-old male with end-stage renal disease on dialysis, presented with difficulty accessing his AV graft during dialysis sessions, effectively causing him to miss dialysis over the weekend. This resulted in the need to check
potassium levels, which required a redraw due to hemolysis. The patient was stable but hypertensive upon evaluation, indicating the possibility of complications arising from missed dialysis and potential thrombosis or occlusion of the AV graft.
Based on these findings, it was decided that the patient required admission for further management and intervention.
DISPOSITION
Admit.
ASSESSMENT
The patients current issues are primarily related to his dialysis AV graft malfunction, likely due to thrombosis, compounded by his hypertensive state and missed dialysis sessions, which may have led to electrolyte imbalances.
MANAGEMENT OF THE PATIENTS CARE WAS DISCUSSED WITH
The case was discussed with a vascular surgeon, Dr. Marquez, for further evaluation and potential intervention regarding the clotted AV graft.
PLAN
- Administer evening dose of antihypertensive medication.
- Admit the patient for vascular imaging and potential intervention for the AV graft by the vascular surgery team.
- Monitor renal function and electrolytes closely, with particular attention to potassium levels.
- Prepare for temporary dialysis via alternative routes if necessary.
INDEPENDENT REVIEW OF LABS AND INTERPRETATION OF TESTS
My independent review of potassium levels led to a redraw due to initial sample hemolysis.
PATIENT EDUCATION AND COUNSELING
Discussed with the patient the importance of resolving the AV graft issues to ensure ongoing dialysis access and the need for admission to address the current concerns effectively.
MEDICATION RECONCILIATION
Evening dose of antihypertensive medication administered as per usual regimen.
MEDICAL DECISION MAKING
- Complexity of Data Reviewed: Chronic conditions affecting care include end-stage renal disease on dialysis and the current complication of a suspected thrombosed AV graft. Differential diagnosis includes thrombosed AV graft, graft stenosis, and
systemic hypotension affecting graft flow.
- Data:
Category 3: Case discussion with Dr. Marquez, vascular surgeon, for potential intervention for the AV graft.
- Risk: Prescription drug management involved evening dose of antihypertensive medication given to manage the patient�s hypertension. Admission was considered necessary due to the risk of complications from the clotted AV graft and possible
progressing hyperkalemia from missed dialysis.
DIAGNOSIS
1. Thrombosis of arteriovenous graft (ICD-10: T82.868A)
2. Essential hypertension (ICD-10: I10)
Past History
Past History
ED Past Medical History: CAD, Cancer (Renal, prostate), HTN, Other (Peripheral arterial disease, anemia, TORSTEN) and Other (GI bleed); Negative CHF, CVA, Hypercholesterolemia, IDDM or NIDDM
ED Past Surgical History: Cardiac (Cardiac stents) and Urological (Kidney removal for renal cancer)
Social History
Tobacco: Non-smoker
Alcohol: None
Drug: None
Personal:
Living: with family
Employment: Retired
Family History
Family History: Hypertension
Phy Exam
Physical Exam
Physical Exam:
.
Course
Orders/Labs/Results
Orders:
Orders
03/21/25 20:09
Hemodialysis Graft US [US Hemodialysis Graft] Urgent
Comment:
Reason For Exam: poor flow/function
03/21/25 22:26
CBC/With Diff [Complete Blood Count/With Diff] Urgent
03/21/25 23:33
Basic Metabolic Panel Urgent
03/22/25 00:34
Comprehensive Metabolic Panel Urgent
03/22/25 01:01
Carvedilol [Coreg] 6.25 mg PO NOW STA
Dorzolamide HCl [Trusopt 2% Ophthalmic Solution] See Dose Instructions OPHTH NOW STA
03/22/25 01:02
Latanoprost [Xalatan Ophthalmic Solution] See Dose Instructions OPHTH NOW STA
Abnormal Lab Results
03/21/25 03/21/25
22:26 23:33
RBC 3.69 L 10^6/uL
(4.70-6.10)
Hgb 10.8 L g/dL
(13.0-18.0)
Hct 32.8 L %
(39.0-52.0)
MCHC 32.9 L g/dL
(33.0-37.0)
MPV 10.9 H fL
(7.4-10.4)
Absolute Lymphs (auto) 0.7 L 10^3/uL
(1.2-3.4)
Absolute Eos (auto) 1.0 H 10^3/uL
(0-0.7)
Lymphocytes % 11.6 L %
(20.5-51.1)
Monocytes % 10.9 H %
(1.7-9.3)
Eosinophils % 17.5 H %
(0-6)
Sodium 132 L mmol/L
(135-145)
BUN 77 H mg/dl
(9-20)
Creatinine 7.8 H* mg/dL
(0.7-1.3)
Glucose 118 H mg/dl
(70-99)
Calcium 7.7 L mg/dl
(8.4-10.2)
03/21/25 22:26
Vital Signs
Initial and Last Documented VS:
Initial Vital Signs
Temp Pulse Resp BP Pulse Ox
97.6 F 66 16 179/79 100
03/21/25 15:25 03/21/25 15:25 03/21/25 15:25 03/21/25 15:25 03/21/25 15:25
Last Documented Vital Signs
Temp Pulse Resp BP Pulse Ox
97.6 F 71 13 176/85 98
03/21/25 15:25 03/22/25 00:00 03/21/25 23:45 03/21/25 23:00 03/22/25 00:59
*Pulse Oximetry
SaO2: 98
Oxygen Mode of Delivery: Room air
Patient hypoxic: no
*Critical Care Note
Total Time (30-74mins, 75-104mins- exclusive of procedures): Not Applicable
ED Attending Note
-
Portions of this chart may have been created with voice recognition software.� Occasional wrong word or��sound alike� substitutions may have occurred due to the inherent limitations of voice recognition software.
Discharge Plan
Departure
Patient Disposition: Admit
Date of Disposition: 03/22/25
Time of Disposition: 00:57
Admit to: Telemetry
Presentation/result/management discussed w/ accepting MD/DO: Hospitalist
Discharge Problem:
Chronic renal failure, AV graft thrombosis
Prescriptions:
No Action
carvedilol 6.25 mg Tablet
6.25 mg PO BID Qty: 60 0RF
aspirin 81 MG tablet,delayed release (DR/EC)
81 mg PO DAILY Qty: 0 0RF
brimonidine 0.15 % Drops
1 drp BOTH EYES DAILY
dorzolamide 2 % Drops
1 drp BOTH EYES BID
latanoprost 1 DROP drops
1 drp BOTH EYES HS
miconazole nitrate [Miconazorb AF] 2 % powder
1 applic topical BID
levothyroxine 75 mcg Tablet
75 mcg PO DAILY @ 0600 Qty: 30 0RF
rosuvastatin 10 MG tablet
10 mg PO HS
levetiracetam [Keppra] 500 mg tablet
500 mg PO ONCE
sevelamer carbonate [Renvela] 800 mg Tablet
800 mg PO TID
Referrals:
Teodoro Jones MD [Family Provider, Internal Medicine]
Interventions
Interventions:
*Risk Screen - Suicide Last Done: 03/21/25 21:38
*General Assessment Last Done: 03/21/25 21:38
*Neglect/Abuse Screening Last Done: 03/21/25 21:38
*ED- Fall Risk Assessment Last Done: 03/21/25 21:37
*ED COVID-19 Vaccine History Last Done: 03/21/25 21:37
Discharge Date and Time
Print Language: ECUADOREAN
[2025-03-22 01:10] LABS: ALT (SGPT) < 10 U/L (0-50); AST (SGOT) 16 U/L (17-59); Albumin 3.7 g/dl (3.5-5.0); Alkaline Phosphatase 59 U/L (38-126); Blood Urea Nitrogen 72 mg/dl (9-20); Calcium 8.0 mg/dl (8.4-10.2); Carbon Dioxide 25 mmol/L (22-30); Chloride 102 mmol/L (98-107); Glucose 116 mg/dl (70-99); Potassium 5.6 mmol/L (3.5-5.1); Sodium 135 mmol/L (135-145); Total Protein 6.5 g/dl (6.3-8.2); eGFR 5.88
[2025-03-22] MEDS: COREG 6.25 MG PO ×3 (01:37→20:53)
[2025-03-22] MEDS: TRUSOPT 2% OPHTHALMIC SOLUTION 1 DROP OPHTH (02:03)
[2025-03-22] MEDS: XALATAN OPHTHALMIC SOLUTION 1 DROP OPHTH (02:03)
[2025-03-22] MEDS: LOKELMA 10 GRAM PO (02:20)
[2025-03-22] MEDS: APRESOLINE 10 MG IV (02:20)
[2025-03-22] MEDS: ALPHAGAN P 0.15% EYE DROPS 1 DROP OPHTH (02:35)
--- NOTE | 2025-03-22 04:42 | HPS.HSE ---
Family Physician
-
Family Physician: Teodoro Jones MD
Chief Complaint
-
AVF Malfunction
History of Present Illness
Patient is an 79y M with PMH significant for ESRD on HD, ASCVD and hypertension who presents to ED complaining of malfunctioning LUE AVF. Patient states that the fistula could not be accessed for dialysis today and there was no thrill or bruit
appreciated. Patient states that HD on Friday was uneventful. However, he does note that there have been recent flow issues with his fistula - frequently requiring re-cannulation during HD to maintain flows.
He states that he feels well and denies any chest pain, dyspnea, fevers / chills, etc.
He does report some discomfort at the LUE AVF site - which he attributes to frequent access attempts.
Medical History
Past Medical History
Past Medical History: Reports Other
Additional Past Medical History:
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
Hypertension
Hyperlipidemia
Solitary Kidney with Renal Artery Stenosis
ESRD on HD
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
Hypothyroidism
Seizure Disorder
Bilateral Upper Ext DVT
Renal Cell Carcinoma
Prostate Cancer s/p Radiation
Past Surgical History: Reports Other
Additional Past Surgical History:
Bilateral AKAs
Fem-Fem Bypass
Cardiac Stents
Right Carotid Artery Stent
Left Nephrectomy
LUE AVF (09/2024)
Social History
Tobacco: Non-smoker
Alcohol: None
Drug: None
Employment: Retired
Family History
Family History: Other (Father with cancer, Mother with pancreatic cancer, sibling with valvular heart disease.)
Allergies / Home Medications
Allergies reflects when Allergies were last updated in [employer].
Home Medications with original date entered in [employer]
Allergy/Medication List:
Allergies
Allergy/AdvReac Type Severity Reaction Status Date / Time
ciprofloxacin Allergy Itching Verified 03/21/25 15:29
Iodinated Contrast Media Allergy chills;trem Verified 03/21/25 15:29
(Iodinated Contrast- Oral ors
and IV Dye)
Penicillins Allergy liver Verified 03/21/25 15:29
damage,
red hands
and feet
phenytoin Allergy Rash Verified 03/21/25 15:29
tetanus and diphtheria Allergy Swelling, Verified 03/21/25 15:29
toxoids Pain at
site
Home Medications
aspirin 81 mg tablet,delayed release 81 mg PO DAILY Heart disease/condition #0 tabs 03/26/24
carvedilol 6.25 mg tablet 6.25 mg PO BID Blood pressure #60 tabs 03/26/24
brimonidine 0.15 % eye drops 1 drp BOTH EYES BID Eye Condition 05/14/24
dorzolamide 2 % eye drops 1 drp BOTH EYES BID Eye Condition 05/14/24
latanoprost 0.005 % eye drops 1 drp BOTH EYES HS Eye condition 05/14/24
miconazole nitrate 2 % topical powder (Miconazorb AF) 1 applic topical BID groin 05/14/24
levothyroxine 75 mcg tablet 75 mcg PO DAILY @ 0600 #30 tabs 06/09/24
rosuvastatin 10 mg tablet 10 mg PO HS High cholesterol 06/11/24
levetiracetam 500 mg tablet (Keppra) 500 mg PO ONCE 03/22/25
sevelamer carbonate 800 mg tablet (Renvela) 800 mg PO TID 03/22/25
Review of Systems
-
History Source: Patient
A 12 point ROS was completed and negative except as noted: Yes
Constitutional: Denies Fever or Chills
Respiratory: Denies Cough or Trouble Breathing
Cardiac: Denies Chest Pain or Palpitations
Abdomen/GI: Denies Abdominal Pain, Nausea, Vomiting or Diarrhea
Neurological: Denies Dizzy or Headache
Physical Exam
Vital Signs
Vital Signs
Temp Pulse Resp BP Pulse Ox
97.6 F 82 14 131/62 99
03/21/25 15:25 03/22/25 03:00 03/22/25 03:00 03/22/25 03:00 03/22/25 01:15
Physical Exam
General: Other (79y M in no acute distress.)
HEENT: Moist mucous membranes and PERRLA
Respiratory: Clear; No Wheezes, Rales or Rhonchi
Cardiac: S1/S2 and Regular Rhythm; No Murmur
GI: Soft, Non Tender, Non Distended and Normal Bowel Sounds
Musculoskeletal: Other (b/l AKA.)
Hematologic/Lymphatic: Other (LUE AVF warm, localized edema - no appreciable thrill or bruit.)
Laboratory Results
-
03/21/25 22:26
03/22/25 00:34
Laboratory Results
Total Bilirubin 0.6 mg/dl (0.2-1.3) 03/22/25 00:34
AST 16 U/L (17-59) L 03/22/25 00:34
ALT < 10 U/L (0-50) 03/22/25 00:34
Alkaline Phosphatase 59 U/L (38-126) 03/22/25 00:34
Impression/Plan
-
A/P: Patient is an 79y M with PMH significant for ASCVD, hypertension and ESRD on HD who presents to ED for evaluation after his AVF was unable to be accessed during HD today.
LUE AVF Malfunction
ESRD on HD
- Admit for further evaluation and treatment.
- US was done in the ED but no report / result is noted.
- Suspect AVF occlusion / thrombosis.
- Vascular Surgery evaluation for additional recommendations / possible intervention.
- Nephrology evaluation for HD needs during acute stay - last HD was on Sunday 03/18.
- May need temporary catheter placed if AVF remains non-functioning.
ASCVD
- Severe vascular disease with coronary stents, fem-pop bypass and ultimately bilateral AKAs.
- Continue current CV med regimen including ASA, statin, etc.
Benign Hypertension
- BP initially elevated in the ED but much improved at present.
- Received his usual carvedilol as well as IV dose of hydralazine here in the ED.
- Continue usual med regimen ans adjust as needed.
- HD / UF for volume and BP control.
Hypothyroidism
- Continue current T4 supplementation.
Seizure Disorder
- Stable. No recent seizure activity.
- Continue Keppra.
History of DVTs (bilateral upper extremities)
DVT Prophylaxis
- Subcut heparin
Code Status: Full
--- NOTE | 2025-03-22 08:07 | W.PN.HOSP.TC ---
Today's Communication/Plan
-
See plan
Assessment / Plan
Assessment / Plan
Physical Exam
General: Other (79y M in no acute distress.)
HEENT: Moist mucous membranes
Respiratory: Clear to Auscultation Bilaterally
Cardiac: S1/S2 and Regular Rhythm
GI: Soft, Non Tender, Non Distended and Normal Bowel Sounds
Musculoskeletal: Other (b/l AKA)
Hematologic/Lymphatic: Other (LUE AVF warm, localized edema - no appreciable thrill or bruit.)
Assessment/Plan
79 y/o male with PMH significant for ESRD on HD (hemodialysis), ASCVD and hypertension who presented to the [facility] ED complaining of malfunctioning LUE AVF. Patient stated that the fistula could not be accessed for dialysis on 03/21/25, and that there
was no thrill or bruit appreciated. Patient states that HD on 03/18/25 was uneventful. However, he did note that there have been recent flow issues with his fistula - frequently requiring re-cannulation during HD to maintain flows. At the time of
admission, patient stated that he felt well and denied any chest pain, dyspnea, fevers / chills, etc. He did report some discomfort at the LUE AVF site - which he attributes to frequent access attempts.
LUE AVF Malfunction
ESRD on HD
- US was done -- it confirmed thrombosed access in the left upper arm
- Suspect AVF occlusion / thrombosis.
- Vascular Surgery evaluation for additional recommendations / possible intervention -- for now, the plan is cahether placement
- Nephrology evaluation for HD needs during acute stay - last HD was on Sunday 03/18.
- May need temporary catheter placed if AVF remains non-functioning.
- Continue Sevelamer for hyperphosphatemia
- CAROL to be provided for anemia
Hyperkalemia
- Lokelma
ASCVD -- bilateral AKAs, coronary stents
- Severe vascular disease with coronary stents, fem-pop bypass and ultimately bilateral AKAs.
- Continue current CV med regimen including ASA, statin, etc.
Benign Hypertension
- BP initially elevated in the ED but much improved at present.
- Received his usual carvedilol as well as IV dose of hydralazine initially
- Continue usual med regimen ans adjust as needed.
- HD / UF for volume and BP control.
Hypothyroidism
- Continue current T4 supplementation.
Seizure Disorder
- Stable. No recent seizure activity.
- Continue Keppra.
History of DVTs (bilateral upper extremities)
DVT Prophylaxis
- Subcut heparin
Code Status: Full Code
Anticipated Discharge: 24 - 48 hours
Subjective/Interval History
-
Date of Service: March 22, 2025
Patient was seen and examined. He denied any chest pain, shortness of breath or any other complaints.
Objective Data
-
Labs:
Laboratory Results
03/21/25 03/21/25 03/21/25
22:24 22:26 23:33
WBC 5.8
Hgb 10.8 L
Hct 32.8 L
Plt Count 182
Sodium Cancelled 132 L
Potassium Cancelled
Chloride Cancelled 99
Carbon Dioxide Cancelled 25
BUN Cancelled 77 H
Creatinine Cancelled 7.8 H*
Glucose Cancelled 118 H
Calcium Cancelled 7.7 L
Total Bilirubin
AST
ALT
Alkaline Phosphatase
03/22/25
00:34
WBC
Hgb
Hct
Plt Count
Sodium 135
Potassium 5.6 H
Chloride 102
Carbon Dioxide 25
BUN 72 H
Creatinine 8.4 H*
Glucose 116 H
Calcium 8.0 L
Total Bilirubin 0.6
AST 16 L
ALT < 10
Alkaline Phosphatase 59
Vital Signs:
Vital Signs
Temp Pulse Resp BP Pulse Ox
97.6 F 66 13 144/68 98
03/21/25 15:25 03/22/25 07:30 03/22/25 07:30 03/22/25 07:00 03/22/25 07:30
I&O
03/21/25 03/22/25 03/23/25
06:59 06:59 06:59
Output Total 700 / 700
Balance -700 / -700
--- NOTE | 2025-03-22 08:49 | CON.VAS ---
Addendum entered and electronically signed by Aldo Stevenson III, MD 03/22/25 13:09:
This patient was seen and examined in collaboration with CLAUDY Parish. I agree with the history and physical exam as well as the assessment and plan. I have the following additions:
Extensive medical history
Currently on dialysis via left upper extremity brachiocephalic fistula
Patient reports that needle cannulation through the brachiocephalic fistula has always been difficult. Most recently he had 3-4 separate needle placements at his dialysis session. He was found to be occluded at dialysis yesterday and sent over.
Ultrasound confirms thrombosed access in the left upper arm
We discussed the options in the emergency room including an attempt to reestablish patency of the AV fistula with endovascular intervention and pharmacomechanical lysis. Explained that this may not be successful and he could thrombose the access
again in the future. The other option would be to proceed with catheter placement today and reevaluate him for new access.
He is frustrated with the difficult needle cannulation at HD and at this point would prefer to get a catheter rather than attempt to declot the AVF. Will f/u with Par[facility] for new access evaluation.
Signed:
Aldo Stevenson III, MD
Vascular Surgery
[facility]
Original Note:
Consultation
Consultation Request
Date/Time Consultation Performed: 03/22/2025 7:30 AM
Performing Provider: Elva
Reason for Consultation: Thrombosed AV fistula
Medical History
-
Chief Complaint: AV fistula access issue
History of Present Illness:
79-year-old male with past medical history significant for PAD status post bilateral AKA's, hypertension, hyperlipidemia, end-stage renal disease on HD, paraproteinemia, hypothyroidism, seizure disorder, DVTs, prostate cancer status post radiation.
Presented to the ER overnight for inability to access AV fistula at HD. Patient had AV fistula created in September by Dr. Virgen. Began using AVF recently and had tunneled catheter removed a few weeks ago. Vascular consult for thrombosed AVF by
ultrasound.
Patient seen at bedside in the ER this morning with Dr. Stevenson. Patient states his last complete HD session was Friday. Patient states that AVF only functioned normally during his first session, thereafter he would have many needlesticks to
complete HD. He states that at his session Friday the AVF stopped working and they needed to reaccess his arm to complete the session. The patient also noted that his arm became swollen last Friday, the swelling has persisted since then. He
came in last night at the recommendation of his HD center for a likely thrombosed AVF.
Patient's left upper extremity is swollen from elbow to shoulder. Forearm and hand are without swelling. Extremities warm and pink. There is no thrill at the AVF.
Past Medical History
Past Medical History: Other (Hypertension, hyperlipidemia, end-stage renal disease on HD, paraproteinemia, hypothyroidism, seizure disorder, bilateral upper extremity DVTs, renal cell carcinoma, prostate cancer status post radiation)
Past Surgical History: Other (Bilateral AKA's, femorofemoral bypass, cardiac stents, right carotid artery stent, left nephrectomy, left upper extremity AV fistula creation)
Social History
Tobacco: Non-Smoker
Alcohol: None
Drug: None
Employment: Retired
Family History
Family History: Reviewed & Not Pertinent
Allergies / Home Medications
Allergy/AdvReac Type Severity Reaction Status Date / Time
ciprofloxacin Allergy Itching Verified 03/21/25 15:29
Iodinated Contrast Media Allergy chills;trem Verified 03/21/25 15:29
(Iodinated Contrast- Oral ors
and IV Dye)
Penicillins Allergy liver Verified 03/21/25 15:29
damage,
red hands
and feet
phenytoin Allergy Rash Verified 03/21/25 15:29
tetanus and diphtheria Allergy Swelling, Verified 03/21/25 15:29
toxoids Pain at
site
�Medication �Instructions �Recorded �Confirmed �Type
aspirin 81 mg tablet,delayed 81 mg PO DAILY Heart 03/26/24 03/22/25 Rx
release disease/condition #0 tabs
carvedilol 6.25 mg tablet 6.25 mg PO BID Blood pressure #60 03/26/24 03/22/25 Rx
tabs
brimonidine 0.15 % eye drops 1 drp BOTH EYES BID Eye Condition 05/14/24 03/22/25 History
dorzolamide 2 % eye drops 1 drp BOTH EYES BID Eye Condition 05/14/24 03/22/25 History
latanoprost 0.005 % eye drops 1 drp BOTH EYES HS Eye condition 05/14/24 03/22/25 History
miconazole nitrate 2 % topical 1 applic topical BID groin 05/14/24 03/22/25 History
powder (Miconazorb AF)
levothyroxine 75 mcg tablet 75 mcg PO DAILY @ 0600 #30 tabs 06/09/24 03/22/25 Rx
rosuvastatin 10 mg tablet 10 mg PO HS High cholesterol 06/11/24 03/22/25 History
levetiracetam 500 mg tablet 500 mg PO ONCE 03/22/25 03/22/25 History
(Keppra)
sevelamer carbonate 800 mg tablet 800 mg PO TID 03/22/25 03/22/25 History
(Renvela)
Review of Systems
-
History Source: Patient
All other systems: Negative unless noted
Constitutional: Reports No Symptoms
EENT: Reports No Symptoms
Respiratory: Reports No Symptoms
Cardiac: Reports No Symptoms
Vascular: Denies Leg Pain / Claudication
Abdomen/GI: Reports No Symptoms
: Reports No Symptoms
Musculoskeletal: Reports No Symptoms
Skin: Reports No Symptoms
Physical Exam
Vital Signs
Temp Pulse Resp BP Pulse Ox
97.6 F 66 13 144/68 98
03/21/25 15:25 03/22/25 07:30 03/22/25 07:30 03/22/25 07:00 03/22/25 07:30
Lab Results
03/21/25 22:26
03/22/25 00:34
Physical Exam
General: No Apparent Distress
HEENT: Normocephalic and Atraumatic
Respiratory: Non Labored Respirations
Cardiac: Negative JVD
GI: Soft and Non Tender
Musculoskeletal: No Clubbing, No Cyanosis and Edema (Left upper extremity)
Skin: Warm, Dry and Other (No palpable thrill)
Neuro: Awake, Alert and Oriented
Assessment / Plan
-
79-year-old male here with thrombosed left upper extremity AV fistula
Plan:
Recommend IR for tunneled catheter
HD
Will add follow-up with our office for next steps
Data Reviewed
-
Ultrasound: Discussed with Physician
Labs: Labs Reviewed by me
--- NOTE | 2025-03-22 09:28 | W.CON.NEPH ---
Consultation
-
Date/Time Consultation Requested: 03/22/2025 7:30 AM
Date/Time Consultation Performed: 03/22/2025 9:30 AM
Requesting Provider: Dr. Bobo
Performing Provider: Dr. Neumann
Reason for Consultation: End-stage renal disease
Medical History
-
Chief Complaint: End-stage renal disease
History of Present Illness:
This is an 79-year-old male with ESRD maintained on hemodialysis every Friday at the [facility] .He has hypertension and is maintained on Coreg. He also has a prior history of malignant neoplasm of prostate and renal
cell carcinoma, nephrectomy and ZAC of solitary kidney too, extensive history of both coronary artery and peripheral vascular disease and has undergone previous bifemoral bypass and Bilateral AKA , Hx of pericardial effusion, retroperitoneal
fibrosis, recent bence-rogers protein with monoclonal spike. A previous admission was notable for hypothyroidism which was quite significant and is now on levothyroxine therapy. He presented to the emergency room yesterday due to occluded left upper
extremity brachiocephalic AV fistula.
Past Medical History
ESRD
Bilateral lower extremity AKA
Hydronephrosis
Pericardial and pleural effusion
Coronary artery disease
Hypertension
Peripheral vascular disease
Renal cancer with history of left nephrectomy
Hx of retroperitoneal fibrosis,
solitary kidney with renal artery stenosis
cancer of prostate
anemia
GI bleed
stage 1 sacral pressure wound,
glaucoma
bence-rogers protein with monoclonal spike
bilateral UE DVT
Left upper extremity brachiocephalic AV fistula
Past Surgical History: Other (Left Nephrectomy, left lower artery bypass surgery, Left AKA, Right transfemoral amputation)
Social History
Tobacco: Non-Smoker
Alcohol: None
Family History
No CKD
Allergies / Home Medications
Allergy/AdvReac Type Severity Reaction Status Date / Time
ciprofloxacin Allergy Itching Verified 03/21/25 15:29
Iodinated Contrast Media Allergy chills;trem Verified 03/21/25 15:29
(Iodinated Contrast- Oral ors
and IV Dye)
Penicillins Allergy liver Verified 03/21/25 15:29
damage,
red hands
and feet
phenytoin Allergy Rash Verified 03/21/25 15:29
tetanus and diphtheria Allergy Swelling, Verified 03/21/25 15:29
toxoids Pain at
site
�Medication �Instructions �Recorded �Confirmed �Type
aspirin 81 mg tablet,delayed 81 mg PO DAILY Heart 03/26/24 03/22/25 Rx
release disease/condition #0 tabs
carvedilol 6.25 mg tablet 6.25 mg PO BID Blood pressure #60 03/26/24 03/22/25 Rx
tabs
brimonidine 0.15 % eye drops 1 drp BOTH EYES BID Eye Condition 05/14/24 03/22/25 History
dorzolamide 2 % eye drops 1 drp BOTH EYES BID Eye Condition 05/14/24 03/22/25 History
latanoprost 0.005 % eye drops 1 drp BOTH EYES HS Eye condition 05/14/24 03/22/25 History
miconazole nitrate 2 % topical 1 applic topical BID groin 05/14/24 03/22/25 History
powder (Miconazorb AF)
levothyroxine 75 mcg tablet 75 mcg PO DAILY @ 0600 #30 tabs 06/09/24 03/22/25 Rx
rosuvastatin 10 mg tablet 10 mg PO HS High cholesterol 06/11/24 03/22/25 History
levetiracetam 500 mg tablet 500 mg PO ONCE 03/22/25 03/22/25 History
(Keppra)
sevelamer carbonate 800 mg tablet 800 mg PO TID 03/22/25 03/22/25 History
(Renvela)
Review of Systems
-
History Source: Patient
All other systems: Negative unless noted
Musculoskeletal: Other (Bilateral AKA)
Physical Exam
Vital Signs
Vital Signs
Temp Pulse Resp BP Pulse Ox
97.6 F 66 13 144/68 98
03/21/25 15:25 03/22/25 07:30 03/22/25 07:30 03/22/25 07:00 03/22/25 07:30
Lab Results
03/21/25 22:26
03/22/25 00:34
WBC 5.8 10^3/uL (4.8-10.8) 03/21/25 22:26
RBC 3.69 10^6/uL (4.70-6.10) L 03/21/25 22:
Hgb 10.8 g/dL (13.0-18.0) L 03/21/25 22:26
Hct 32.8 % (39.0-52.0) L 03/21/25 22:
Plt Count 182 10^3/uL (130-400) 03/21/25 22:26
Sodium 135 mmol/L (135-145) 03/22/25 00:34
Potassium 5.6 mmol/L (3.5-5.1) H 03/22/25 00:34
Chloride 102 mmol/L (98-107) 03/22/25 00:34
Carbon Dioxide 25 mmol/L (22-30) 03/22/25 00:34
BUN 72 mg/dl (9-20) H 03/22/25 00:34
Creatinine 8.4 mg/dL (0.7-1.3) H* 03/22/25 00:34
eGFR 5.88 03/22/25 00:34
Glucose 116 mg/dl (70-99) H 03/22/25 00:34
Calcium 8.0 mg/dl (8.4-10.2) L 03/22/25 00:34
Albumin 3.7 g/dl (3.5-5.0) 03/22/25 00:34
Physical Exam
General: AOx3, No Distress and Nontoxic
HEENT: PERRL, EOMI, Anicteric, Conjunctivae Clear, Ear/Nose Intact, Hearing Normal, Oropharynx Clear/Moist, Dentition Intact, Facial Symmetry, Neck Supple, Trachea Midline, No JVD and No Thyromegaly
Respiratory: Crackels (at bases)
Cardiac: S1/S2 and Regular Rate/Rhythm
Breast: Deferred by me
Abdomen: Soft, Nontender, Nondistended and Normal Bowel Sounds
Rectal: Deferred by Provider
Genito-urinary: No Costovertebral Tender
Musculoskeletal: No Clubbing, No Cyanosis, No Edema and Other (Bilateral AKA)
Skin: No Rash, Warm, Dry, No Clubbing, No Cyanosis, Normal Turgor and No Bruising
Neuro: Nonfocal/Grossly Intact
Hematologic/Lymphatic: No Cervical Lymphadenopathy, No Submandibular Lymphadenopathy and No Supraclavicular Lymphadenopathy
Psych: Mood/afflect pleasant, Insight/judgement good and Appropriate
Vascular Access: AVF (Left brachiocephalic AV fistula with no thrill or bruit)
Data Reviewed
-
Radiology: Report Reviewed by me (Duplex of left brachiocephalic AV fistula with thrombosis)
Labs: Labs Reviewed by me (BMP CBC)
Old Records: Reviewed (Reviewed previous nephrology consult from June 11, 2024 RE: ESRD)
Assessment/Plan
-
Impression:
ESRD Friday [facility]
Occluded left brachiocephalic AV fistula
Hx of pericardial effusion s/p pericardiocentesis
Hypothyroidism
Hyperphosphatemia
Anemia
Hyperkalemia
PAD s/p b/l AKA and femoral stents
Renal artery stenosis of solitary kidney-deemed not a candidate for renal artery revasc with poor vascular
Hx of prostate CA
HLD
Glaucoma
Hx of GIB
Chronic anemia
monoclonal spike on SPEP
Stage 1 sacral wound
Diverticulosis
Coronary artery disease
Renal cancer with history of left nephrectomy
hx dorsal slit for alicea placement
Plan:
Will treat potassium with Lokelma
Dialysis will be provided once access is established
Vascular surgery to investigate left brachiocephalic AV fistula occlusion, intervention vs catheter placement
Maintain sevelamer for hyperphosphatemia
CAROL to be provided for anemia
Blood pressure stabilized on carvedilol and dry weight
[2025-03-22] MEDS: SYNTHROID PO (09:59)
[2025-03-22] MEDS: ASPIR LOW (ENTERIC COATED) PO (09:59)
[2025-03-22] MEDS: RENVELA PO (10:00)
[2025-03-22] MEDS: COREG PO (10:00)
[2025-03-22] MEDS: KEPPRA PO (10:01)
[2025-03-22] MEDS: KEPPRA 500 MG PO (10:19)
[2025-03-22] MEDS: HEPARIN SC ×2 (10:26→21:07)
[2025-03-22] MEDS: ALPHAGAN P 0.15% EYE DROPS 1 DROP BOTH EYES ×2 (10:26→21:24)
[2025-03-22] MEDS: TRUSOPT 2% OPHTHALMIC SOLUTION 1 DROP BOTH EYES ×2 (10:27→21:14)
[2025-03-22] MEDS: ASPIR LOW (ENTERIC COATED) 81 MG PO (10:30)
--- NOTE | 2025-03-22 14:14 | W.PN.NEPH.HD ---
Assessment
-
Patient seen on HD
sbp stable for HD
HD again tomorrow to keep on schedule
Will need temporary dialysis catheter to be transition to tunneled catheter prior to discharge
Progress Note - Hemodialysis
-
Date of Service: March 22, 2025
Duration: 3 hours
Potassium Bath: 2
Calcium Bath: 2.5
Opti-Dialyzer: 160
Ultrafiltration: Other (2-3kg)
Blood Flow: 400
Dialysate Flow: 600
Heparin: nah
[2025-03-22] MEDS: MANNITOL 25% 12.5 GRAMS IV (15:34)
[2025-03-22] MEDS: RETACRIT 8000 UNITS IV (15:35)
[2025-03-22] MEDS: HEPARIN 2500 UNITS INTRACATH (17:23)
[2025-03-22] MEDS: RENVELA 800 MG PO ×2 (18:20→21:03)
[2025-03-22] MEDS: CRESTOR 10 MG PO (21:03)
[2025-03-22] MEDS: XALATAN OPHTHALMIC SOLUTION 1 DROP BOTH EYES (21:15)
[2025-03-22] MEDS: ALPHAGAN P 0.15% EYE DROPS BOTH EYES (21:17)
[2025-03-22] MEDS: TYLENOL 650 MG PO (22:33)
[2025-03-23] VITALS (9 sets, daily range): BP systolic 73–206; BP diastolic 60–107
[2025-03-23 07:24] LABS: Hematocrit 32.9 % (39.0-52.0); Hemoglobin 10.8 g/dL (13.0-18.0); Mean Corp Hgb Conc. 32.8 g/dL (33.0-37.0); Mean Corpuscular Volume 89.6 fL (80.0-94.0); Platelet Count 198 10^3/uL (130-400); Red Cell Dist. Width 14.0 % (11.5-14.5)
[2025-03-23] MEDS: SYNTHROID 75 MCG PO (07:26)
[2025-03-23 08:09] LABS: Blood Urea Nitrogen 34 mg/dl (9-20); Calcium 7.9 mg/dl (8.4-10.2); Carbon Dioxide 28 mmol/L (22-30); Chloride 97 mmol/L (98-107); Glucose 92 mg/dl (70-99); Magnesium 2.0 mg/dl (1.6-2.3); Potassium 4.1 mmol/L (3.5-5.1); Sodium 134 mmol/L (135-145); eGFR 11.23
[2025-03-23] MEDS: COREG PO (08:49)
[2025-03-23] MEDS: HEPARIN SC (08:49)
[2025-03-23] MEDS: TRUSOPT 2% OPHTHALMIC SOLUTION 1 DROP BOTH EYES ×2 (08:50→21:35)
[2025-03-23] MEDS: ASPIR LOW (ENTERIC COATED) 81 MG PO (08:51)
[2025-03-23] MEDS: RENVELA 800 MG PO ×3 (08:51→21:33)
[2025-03-23] MEDS: ALPHAGAN P 0.15% EYE DROPS 1 DROP BOTH EYES ×2 (08:53→21:34)
--- NOTE | 2025-03-23 09:45 | W.PN.NEPH.HD ---
Assessment
-
pt seen during HD
vitals stable
consult IR to change to tunneled
UF as tolerated to EDW
temp CVC functions fine
d/w pt
Progress Note - Hemodialysis
-
Date of Service: March 23, 2025
Duration: 15 minutes and 3 hours
Potassium Bath: 3
Calcium Bath: 2.5
Opti-Dialyzer: 160
Ultrafiltration: Other (1.5-2kg)
Blood Flow: 400
Dialysate Flow: 600
Heparin: no
EPO: 8000
[2025-03-23] MEDS: MANNITOL 25% 12.5 GRAMS IV (10:07)
[2025-03-23] MEDS: HEPARIN 2500 UNITS INTRACATH (11:22)
--- NOTE | 2025-03-23 12:06 | W.PN.HOSP.TC ---
Today's Communication/Plan
-
Discharge today
Assessment / Plan
Assessment / Plan
Physical Exam
General: Other (79y M in no acute distress.)
HEENT: Moist mucous membranes
Respiratory: Clear to Auscultation Bilaterally
Cardiac: S1/S2 and Regular Rhythm
GI: Soft, Non Tender, Non Distended and Normal Bowel Sounds
Musculoskeletal: Other (B/L AKA)
Hematologic/Lymphatic: Other (LUE AVF warm, localized edema - no appreciable thrill or bruit.)
Assessment/Plan
79 y/o male with PMH significant for ESRD on HD (hemodialysis), ASCVD and hypertension who presented to the [facility] ED complaining of malfunctioning LUE AVF. Patient stated that the fistula could not be accessed for dialysis on 03/21/25, and that there
was no thrill or bruit appreciated. Patient states that HD on 03/18/25 was uneventful. However, he did note that there have been recent flow issues with his fistula - frequently requiring re-cannulation during HD to maintain flows. At the time of
admission, patient stated that he felt well and denied any chest pain, dyspnea, fevers / chills, etc. He did report some discomfort at the LUE AVF site - which he attributes to frequent access attempts.
LUE AVF Malfunction
ESRD on HD
- US was done -- it confirmed thrombosed access in the left upper arm
- Suspect AVF occlusion / thrombosis.
- Vascular Surgery evaluation for additional recommendations / possible intervention -- for now, the plan is catheter placement
- Nephrology evaluation for HD needs during acute stay -- dialysis took place 03/22/25 and 03/23/25
- May need temporary catheter placed if AVF remains non-functioning.
- Continue Sevelamer for hyperphosphatemia
- CAROL to be provided for anemia
- IR consult for tunneled dialysis catheter placement -- once catheter is placed, then patient can be discharged -- I discussed this with nephrology who is in agreement
Hyperkalemia - RESOLVED
ASCVD -- bilateral AKAs, coronary stents
- Severe vascular disease with coronary stents, fem-pop bypass and ultimately bilateral AKAs.
- Continue current CV med regimen including ASA, statin, etc.
Benign Hypertension
- BP initially elevated in the ED but much improved at present.
- Received his usual carvedilol as well as IV dose of hydralazine initially
- Continue usual med regimen ans adjust as needed.
- HD / UF for volume and BP control.
Hypothyroidism
- Continue current T4 supplementation.
Seizure Disorder
- Stable. No recent seizure activity.
- Continue Keppra.
History of DVTs (bilateral upper extremities)
DVT Prophylaxis
- Subcut heparin
Code Status: Full Code
More than 30 minutes spent in discharge including
Final examination of the patient
Summarizing hospital stay
Instructions for continuing care to all relevant caregivers
Preparation of discharge records, prescriptions, and referral forms
Total time spent (in minutes): 37
Anticipated Discharge: Today
Subjective/Interval History
-
Date of Service: March 23, 2025
Patient was seen and examined. He denied any chest pain, shortness of breath or any other complaints.
Objective Data
-
Labs:
Laboratory Results
03/23/25
07:04
WBC 6.7
Hgb 10.8 L
Hct 32.9 L
Plt Count 198
Sodium 134 L
Potassium 4.1 D
Chloride 97 L
Carbon Dioxide 28
BUN 34 H
Creatinine 4.9 H*
Glucose 92
Calcium 7.9 L
Vital Signs:
Vital Signs
Temp Pulse Resp BP Pulse Ox
97.4 F 58 20 102/60 100
03/23/25 11:00 03/23/25 11:00 03/23/25 11:00 03/23/25 11:00 03/23/25 11:00
I&O
03/22/25 03/23/25 03/24/25
06:59 06:59 06:59
Intake Total 720 / 720
Output Total 700 / 700 50 / 50
Balance -700 / -700 670 / 670
[2025-03-23] MEDS: KEPPRA 500 MG PO (12:12)
--- NOTE | 2025-03-23 15:12 | CM ---
client integration manager reviewed patient's chart and met with patient and patient is for discharge today, IMM given, patient lives with niece in a multilevel home with 1st floor set up patient with bilateral AKA, needs new HD cath. Patient goes to [facility]
MWF at 11am, [facility] transport.
[facility]
[phone]
fax [phone]
Plan; Home today, niece or nephew to transport no needs.
--- NOTE | 2025-03-23 15:13 | PTOTSP ---
The patient demonstrated independence with scooting to/from his motorized chair as he usually does, anticipates returning home without concerns regarding his mobility. No PT needs at this time, will sign off.
--- NOTE | 2025-03-23 16:00 | PTCARENOTE ---
per Dr. Stack, no prophylactic abx needed prior to tunneled HD catheter placement d/t pt allergies and low risk of infection
[2025-03-23] MEDS: COREG 6.25 MG PO (18:46)
[2025-03-23] MEDS: APRESOLINE 10 MG IV (18:46)
--- NOTE | 2025-03-23 19:22 | PTCARENOTE ---
Patient returned from IR feeling nauseous and had a manual BP of 206/88. MD made aware. IV hydralazine and 2000 PO Coreg were given per MD order. Pt to stay overnight for further assessment. Discharge order to be re-evaluated in the a.m.
--- NOTE | 2025-03-23 20:23 | W.PN.UPDATE ---
Update Note
Progress Note Update
Patient had transient nausea and high blood pressure after coming back from IR catheter placement today. Hydralazine ordered. Given patient's family said they that are unable to come tonight to pick pulling machine tender patient given the weather, and to monitor
patient's symptoms and blood pressure going into tomorrow, will monitor patient overnight.
[2025-03-23] MEDS: CRESTOR 10 MG PO (21:33)
[2025-03-23] MEDS: XALATAN OPHTHALMIC SOLUTION 1 DROP BOTH EYES (21:35)
[2025-03-23] MEDS: HEPARIN 5000 UNITS SC (21:36)
[2025-03-24 02:58] VITALS: BP 136/72
[2025-03-24 07:00] VITALS: BP 168/74
[2025-03-24] MEDS: ASPIR LOW (ENTERIC COATED) 81 MG PO (07:26)
[2025-03-24] MEDS: COREG 6.25 MG PO (07:26)
[2025-03-24] MEDS: RENVELA 800 MG PO (07:26)
[2025-03-24] MEDS: SYNTHROID 75 MCG PO (07:26)
[2025-03-24] MEDS: ALPHAGAN P 0.15% EYE DROPS 1 DROP BOTH EYES (07:27)
[2025-03-24] MEDS: TRUSOPT 2% OPHTHALMIC SOLUTION 1 DROP BOTH EYES (07:27)
[2025-03-24] MEDS: KEPPRA 500 MG PO (07:28)
[2025-03-24] MEDS: HEPARIN SC (07:28)
[2025-03-24 07:36] LABS: Hematocrit 32.2 % (39.0-52.0); Hemoglobin 10.5 g/dL (13.0-18.0); Mean Corp Hgb Conc. 32.6 g/dL (33.0-37.0); Mean Corpuscular Volume 90.4 fL (80.0-94.0); Platelet Count 183 10^3/uL (130-400); Red Cell Dist. Width 13.9 % (11.5-14.5)
[2025-03-24 07:46] LABS: Blood Urea Nitrogen 22 mg/dl (9-20); Calcium 8.4 mg/dl (8.4-10.2); Carbon Dioxide 28 mmol/L (22-30); Chloride 96 mmol/L (98-107); Glucose 73 mg/dl (70-99); Potassium 4.1 mmol/L (3.5-5.1); Sodium 133 mmol/L (135-145); eGFR 14.33
--- NOTE | 2025-03-24 07:55 | W.PN.HOSP.TC ---
Today's Communication/Plan
-
Discharge today
Assessment / Plan
Assessment / Plan
Physical Exam
General: Other (79y M in no acute distress.)
HEENT: Moist mucous membranes
Respiratory: Clear to Auscultation Bilaterally
Cardiac: S1/S2 and Regular Rhythm
GI: Soft, Non Tender, Non Distended and Normal Bowel Sounds
Musculoskeletal: Other (B/L AKA)
Hematologic/Lymphatic: Other (LUE AVF warm, localized edema - no appreciable thrill or bruit.)
Assessment/Plan
79 y/o male with PMH significant for ESRD on HD (hemodialysis), ASCVD and hypertension who presented to the [facility] ED complaining of malfunctioning LUE AVF. Patient stated that the fistula could not be accessed for dialysis on 03/21/25, and that there
was no thrill or bruit appreciated. Patient states that HD on 03/18/25 was uneventful. However, he did note that there have been recent flow issues with his fistula - frequently requiring re-cannulation during HD to maintain flows. At the time of
admission, patient stated that he felt well and denied any chest pain, dyspnea, fevers / chills, etc. He did report some discomfort at the LUE AVF site - which he attributes to frequent access attempts.
LUE AVF Malfunction
ESRD on HD
- US was done -- it confirmed thrombosed access in the left upper arm
- Suspect AVF occlusion / thrombosis.
- Vascular Surgery evaluation for additional recommendations / possible intervention -- for now, the plan is catheter placement
- Nephrology evaluation for HD needs during acute stay -- dialysis took place 03/22/25 and 03/23/25
- May need temporary catheter placed if AVF remains non-functioning.
- Continue Sevelamer for hyperphosphatemia
- CAROL to be provided for anemia
- IR consult for tunneled dialysis catheter placement -- once catheter is placed, then patient can be discharged -- I discussed this with nephrology who is in agreement
Hyperkalemia - RESOLVED
ASCVD -- bilateral AKAs, coronary stents
- Severe vascular disease with coronary stents, fem-pop bypass and ultimately bilateral AKAs.
- Continue current CV med regimen including ASA, statin, etc.
Nausea/Vomiting Episode 03/23/25 - RESOLVED
- Suspected from meds received during tunneled dialysis cath procedure
Benign Hypertension
- BP initially elevated in the ED but much improved at present.
- Received his usual carvedilol as well as IV dose of hydralazine initially
- Continue usual med regimen ans adjust as needed.
- HD / UF for volume and BP control.
Hypothyroidism
- Continue current T4 supplementation.
Seizure Disorder
- Stable. No recent seizure activity.
- Continue Keppra.
History of DVTs (bilateral upper extremities)
DVT Prophylaxis
- Subcut heparin
Code Status: Full Code
More than 30 minutes spent in discharge including
Final examination of the patient
Summarizing hospital stay
Instructions for continuing care to all relevant caregivers
Preparation of discharge records, prescriptions, and referral forms
Total time spent (in minutes): 35
Anticipated Discharge: Today
Subjective/Interval History
-
Date of Service: March 24, 2025
Patient was seen and examined. His nausea/vomiting episode has resolved, he said he thinks it was from the medicine he got during his tunneled cath placement procedure. Patient said he feels completely fine today, and that he is looking forward to
going home today.
Objective Data
-
Labs:
Laboratory Results
03/24/25
06:30
WBC 7.3
Hgb 10.5 L
Hct 32.2 L
Plt Count 183
Sodium 133 L
Potassium 4.1
Chloride 96 L
Carbon Dioxide 28
BUN 22 H
Creatinine 4.0 H
Glucose 73
Calcium 8.4
Vital Signs:
Vital Signs
Temp Pulse Resp BP Pulse Ox
98.5 F 78 18 136/72 97
03/24/25 02:58 03/24/25 02:58 03/24/25 02:58 03/24/25 02:58 03/24/25 02:58
I&O
03/23/25 03/24/25 03/25/25
06:59 06:59 06:59
Intake Total 720 / 720 150 / 150
Output Total 50 / 50 100 / 100
Balance 670 / 670 50 / 50
--- NOTE | 2025-03-24 10:04 | W.DCSUMMARY ---
Discharge Summary
Discharge Data
Date of Admission: 03/22/25
Date of Discharge: 03/24/25
Total time spent discharging patient (in min): 35
-
Pending Results: No
Hospital Course
79 y/o male with past medical history significant for PAD status post bilateral AKA's, hypertension, hyperlipidemia, end-stage renal disease on HD, paraproteinemia, hypothyroidism, seizure disorder, DVTs and prostate cancer status post radiation,
who presented to the [facility] ED complaining of malfunctioning LUE AVF. Patient stated that the fistula could not be accessed for dialysis and there was no thrill or bruit appreciated. Ultrasound was done, and it confirmed thrombosed access in the left
upper arm -- vascular surgeon confirmed via [place] Text communication with hospitalist that no blood thinner medications would be needed for this. Vascular surgeon discussed the options with patient, including an attempt to reestablish patency of the
AV fistula with endovascular intervention and pharmacomechanical lysis -- they explained that this may not be successful and he could thrombose the access again in the future; another option would be to proceed with catheter placement and
reevaluate him for new access. Patient stated that would prefer to get a catheter rather than attempt to declot the AVF. Lokelma was given for hyperkalemia. Nephrology was consulted as well. Patient got dialysis during the hospitalization and
temporary dialysis catheter was changed to a tunneled dialysis catheter bt interventional radiology. Patient had high blood pressure and nausea post-op, blood pressure lower medication was given and his symptoms quickly resolved. He was later stable
for discharge.
Discharge Plan
-
Patient Disposition: Home (Routine Discharge)
Discharge Diagnosis/Procedures: Left Upper Extremity AVF Malfunction
ESRD on HD
Hyperkalemia - RESOLVED
Bilateral Above Knee Amputations
History of coronary stents -- severe vascular disease with coronary stents, fem-pop bypass and ultimately bilateral AKAs.
Benign Hypertension
Hypothyroidism
Seizure Disorder
History of DVTs (bilateral upper extremities)
Ultrasound of Hemodialysis Graft Results (as per radiologist's report):
'IMPRESSION: Fistula is thrombosed. No thrombus seen within the subclavian, axillary, or brachial vein.'
Condition: Fair
Diet: Other diet
Additional Diets: Please follow a kidney dialysis diet.
Activity: With assistance
Driving Restrictions: No driving
Blood Work: CBC, BMP and Magnesium in 1 to 2 days with your primary care provider.
Activity Restrictions/Additional Instructions:
Please have your BMP and Magnesium checked with your dialysis sessions. Please attend your next dialysis session this week.
Referrals:
Teodoro Jones MD [Family Provider, Internal Medicine] - in less than 1 week
Referral Note: Hospitalization Follow-Up
Gaudencio Virgen MD [Active, Vascular Surgery] - 04/19/25 10:00 am
Referral Note: Vascular surgery office appointment
Prescriptions:
Continued
carvedilol 6.25 mg Tablet
6.25 mg PO BID Qty: 60 0RF
aspirin 81 MG tablet,delayed release (DR/EC)
81 mg PO DAILY Qty: 0 0RF
brimonidine 0.15 % Drops
1 drp BOTH EYES BID
dorzolamide 2 % Drops
1 drp BOTH EYES BID
latanoprost 1 DROP drops
1 drp BOTH EYES HS
miconazole nitrate [Miconazorb AF] 2 % powder
1 applic topical BID
levothyroxine 75 mcg Tablet
75 mcg PO DAILY @ 0600 Qty: 30 0RF
rosuvastatin 10 MG tablet
10 mg PO HS
levetiracetam [Keppra] 500 mg tablet
500 mg PO ONCE
sevelamer carbonate [Renvela] 800 mg Tablet
800 mg PO TID
Discharge Orders:
Discharge Patient (As Directed); Ordered 03/24/25
Ordered By: Kurt Bobo
Discharge Date and Time
Discharge Date/Time: 03/24/25 15:39
Print Language: PAK[place]
[2025-03-24 11:00] VITALS: BP 116/91
--- NOTE | 2025-03-24 11:07 | CM ---
Met with patient; reported family will provide transport home
Plan: Discharge to home today; will resume HD therapy; no other services needed
--- NOTE | 2025-03-24 14:26 | W.PN.NEPH.PH ---
Today's Communication / Plan
-
HD tomorrow at out pt HD unit [facility]
Assessment/Plan
-
Impression:
ESRD Friday [facility] Jim[facility]
Occluded left brachiocephalic AV fistula
Hx of pericardial effusion s/p pericardiocentesis
Hypothyroidism
Hyperphosphatemia
Anemia
Hyperkalemia
PAD s/p b/l AKA and femoral stents
Renal artery stenosis of solitary kidney-deemed not a candidate for renal artery revasc with poor vascular
Hx of prostate CA
HLD
Glaucoma
Hx of GIB
Chronic anemia
monoclonal spike on SPEP
Stage 1 sacral wound
Diverticulosis
Coronary artery disease
Renal cancer with history of left nephrectomy
hx dorsal slit for alicea placement
Plan:
s/p HD yesterday
now with tunneled catheter
need vasc f/u of AVF revision vs new one
Maintain sevelamer for hyperphosphatemia
CAROL to be provided for anemia
Blood pressure stabilized today
ok for d/c
-
-
Date of Service: March 24, 2025
CC / HPI / ROS
-
Chief Complaint:
ESRD
History of Present Illness:
tolerated HD yesterday on MWF schedule
BP high post CVC placement and now better
Review of Systems:
no CP/SOB
no fevers
Labs
-
Labs:
WBC 7.3 10^3/uL (4.8-10.8) 03/24/25 06:30
RBC 3.56 10^6/uL (4.70-6.10) L 03/24/25 06:30
Hgb 10.5 g/dL (13.0-18.0) L 03/24/25 06:30
Hct 32.2 % (39.0-52.0) L 03/24/25 06:30
Plt Count 183 10^3/uL (130-400) 03/24/25 06:30
Sodium 133 mmol/L (135-145) L 03/24/25 06:30
Potassium 4.1 mmol/L (3.5-5.1) 03/24/25 06:30
Chloride 96 mmol/L (98-107) L 03/24/25 06:30
Carbon Dioxide 28 mmol/L (22-30) 03/24/25 06:30
BUN 22 mg/dl (9-20) H 03/24/25 06:30
Creatinine 4.0 mg/dL (0.7-1.3) H 03/24/25 06:30
eGFR 14.33 03/24/25 06:30
Glucose 73 mg/dl (70-99) 03/24/25 06:30
Calcium 8.4 mg/dl (8.4-10.2) 03/24/25 06:30
Phosphorus 4.7 mg/dl (2.5-4.5) H 03/23/25 07:04
Albumin 3.7 g/dl (3.5-5.0) 03/22/25 00:34
Physical Exam
-
Vital Signs:
Vital Signs
Temp Pulse Resp BP Pulse Ox
98.3 F 80 16 116/91 96
03/24/25 11:00 03/24/25 11:00 03/24/25 11:00 03/24/25 11:00 03/24/25 11:00
Cardiovascular:: Regular rate and rhythm
Respiratory:: Bilateral: CTA
Lung Excursion:: Normal
Abdomen:: Nontender and Soft
Alicea Catheter: No
Other Findings::
bilat AKA
[2025-03-24 14:59] VITALS: BP 141/72
== END 2025-03-24 15:39 | disposition home or self-care (01) | DRG 314 ==
LOC: 2 NORTH 05:03
PROVIDERS: Radiology Diagnostic Radiology; Radiology Vascular & Interventional Radiology; ADMITTING PHYSICIAN Hospitalist; ATTENDING PHYSICIAN Hospitalist; CONSULT PHYSICIAN Specialist; EMERGENCY PHYSICIAN Emergency Medicine; FAMILY PHYSICIAN Internal Medicine; OTHER PHYSICIAN Surgery Vascular Surgery
PROC: 02H633Z Insertion of Infusion Device into Right Atrium, Percutaneous Approach (ICD-10-PCS; 2025-03-22)
PROC: 5A1D70Z Performance of Urinary Filtration, Intermittent, Less than 6 Hours Per Day (ICD-10-PCS; 2025-03-22)
PROC: 05PY33Z Removal of Infusion Device from Upper Vein, Percutaneous Approach (ICD-10-PCS; 2025-03-23)
PROC: 0JH63XZ Insertion of Tunneled Vascular Access Device into Chest Subcutaneous Tissue and Fascia, Percutaneous Approach (ICD-10-PCS; 2025-03-23)
DX: T82.868A Thrombosis due to vascular prosthetic devices, implants and grafts, initial encounter (principal); N18.6 End stage renal disease; I12.0 Hypertensive chronic kidney disease with stage 5 chronic kidney disease or end stage renal disease; Y71.2 Prosthetic and other implants, materials and accessory cardiovascular devices associated with adverse incidents; Y83.2 Surgical operation with anastomosis, bypass or graft as the cause of abnormal reaction of the patient, or of later complication, without mention of misadventure at the time of the procedure; I25.10 Atherosclerotic heart disease of native coronary artery without angina pectoris; I70.1 Atherosclerosis of renal artery; G40.909 Epilepsy, unspecified, not intractable, without status epilepticus; E03.9 Hypothyroidism, unspecified; D89.2 Hypergammaglobulinemia, unspecified; E87.5 Hyperkalemia; E78.00 Pure hypercholesterolemia, unspecified; D63.1 Anemia in chronic kidney disease; E11.22 Type 2 diabetes mellitus with diabetic chronic kidney disease; E11.51 Type 2 diabetes mellitus with diabetic peripheral angiopathy without gangrene; E83.39 Other disorders of phosphorus metabolism; L89.151 Pressure ulcer of sacral region, stage 1; Z79.82 Long term (current) use of aspirin; Z79.899 Other long term (current) drug therapy; Z85.46 Personal history of malignant neoplasm of prostate; Z85.528 Personal history of other malignant neoplasm of kidney; Z86.718 Personal history of other venous thrombosis and embolism; Z89.611 Acquired absence of right leg above knee; Z89.612 Acquired absence of left leg above knee; Z91.158 Patient's noncompliance with renal dialysis for other reason; Z92.3 Personal history of irradiation; Z95.5 Presence of coronary angioplasty implant and graft; Z99.2 Dependence on renal dialysis
CPT/HCPCS: 36556; 36558; 76937; 77001; 80048; 80053; 83735; 84100; 85025; 85027; 87070; 93005; 93990; 97161; 99152; 99153; C1750; C1752; G0257; Q5106

== ENCOUNTER → 2025-04-29 08:51 | Outpatient (REF) | payer MEDICARE, OTHER, SELFPAY ==
[2025-04-29 09:10] VITALS: BP 116/66; BP_SYST 68
[2025-04-29 10:50] VITALS: BP 141/68; BP_SYST 61
[2025-04-29 11:07] VITALS: BP 141/68
== END ==
LOC: RADI 08:51
PROVIDERS: ATTENDING PHYSICIAN Internal Medicine; FAMILY PHYSICIAN Internal Medicine
DX: T82.49XA Other complication of vascular dialysis catheter, initial encounter (principal); Y82.8 Other medical devices associated with adverse incidents; N18.6 End stage renal disease
CPT/HCPCS: 36581; 77001; C1750; C1769

== ENCOUNTER → 2025-07-21 10:39 | Outpatient (REF) | payer MEDICARE, OTHER, SELFPAY | LOC: RAD 10:39 | PROVIDERS: ATTENDING PHYSICIAN Surgery Vascular Surgery; FAMILY PHYSICIAN Internal Medicine | DX: N18.6 End stage renal disease (principal); Z99.2 Dependence on renal dialysis; Z01.818 Encounter for other preprocedural examination; I87.2 Venous insufficiency (chronic) (peripheral) | CPT/HCPCS: 93970 ==

== ENCOUNTER 2025-07-28 06:13 | Day surgery (SDC) | payer MEDICARE, OTHER, SELFPAY ==
--- NOTE | 2025-07-22 16:58 | PTCARENOTE ---
Abn ECG. Dr Ford notified, no additional interventions requested.
[2025-07-28] VITALS (10 sets, daily range): BP systolic 160–212; BP diastolic 60–88
[2025-07-28 07:08] LABS: Hematocrit 35.4 % (39.0-52.0); Hemoglobin 11.3 g/dL (13.0-18.0); Mean Corp Hgb Conc. 31.9 g/dL (33.0-37.0); Mean Corpuscular Volume 90.1 fL (80.0-94.0); Platelet Count 179 10^3/uL (130-400); Red Cell Dist. Width 15.9 % (11.5-14.5)
[2025-07-28 07:15] LABS: INR 1.07; PT 13.7 Sec (11.4-14.6)
[2025-07-28 07:16] LABS: APTT 34.1 Sec (23.4-35.0)
[2025-07-28] MEDS: VANCOCIN 200 IV (07:19)
[2025-07-28] MEDS: NSS 500 IV (07:20)
[2025-07-28 08:12] LABS: Blood Urea Nitrogen 26 mg/dl (9-20); Calcium 8.4 mg/dl (8.4-10.2); Carbon Dioxide 29 mmol/L (22-30); Chloride 99 mmol/L (98-107); Glucose 92 mg/dl (70-99); Potassium 4.8 mmol/L (3.5-5.1); Sodium 136 mmol/L (135-145); eGFR 12.04
--- NOTE | 2025-07-28 10:14 | W.SUR.POST ---
Surgical Immediate Post Op
Note
Pre Op Diagnosis: ESRD
Post Op Diagnosis: ESRD
Procedure Performed: LUE brachiobasilic with basilic transposition AV fistula creation
Primary Surgeon: Param
Assist: Rachid LOCO
Anesthesia: LMA
Estimated Blood Loss: 5cc
Fluids: see anesthesia flow sheet
Drains/Shunts: none
Specimens/Cultures: none
Doppler/Duplex/Angio (Y/N): Y
Complications: none
Operative Findings: +thrill
--- NOTE | 2025-07-28 11:17 | OR.RPT ---
Operative Report
Operative Report
PROCEDURE DATE: 07/28/2025
Preoperative diagnosis: End-stage renal disease on hemodialysis
Postoperative diagnosis: Same
Procedure: Left upper extremity brachiobasilic arteriovenous fistula creation with single stage basilic vein transposition.
Surgeon: Param
Air Route Traffic Controller: JAMIL Rashid, required for Lasix procedure including assistance with traction/countertraction, following a suture line, assistance with closure.
Complications: None
Anesthesia: General
Indications for procedure:
End-stage renal disease on hemodialysis. Risk/benefits/alternatives of upper extremity fistula/graft all fully discussed. Patient understood all wished to proceed.
Description of procedure:
Patient was identified brought to the operating room placed on the table in supine position. After the adequate administration of anesthesia and perioperative antibiotics he was prepped and draped in the standard surgical fashion. A standard
preoperative timeout was undertaken and everybody was in agreement the plan. A longitudinal incision was made in the medial distal upper arm that was carried through the skin subcutaneous tissue with electrocautery. The basilic vein was identified
and carefully dissected away from surrounding structures and great care to avoid any injury to structures. It appeared to be a very suitable vein. I initially continue my dissection distally and onto the forearm somewhat medially following the
basilic vein. Of note, I had mapped the basilic vein with ultrasound myself in the OR prior to prepping and draping. And there was a relatively proximal confluence to the deep vein. Therefore I dissected additional distally in the forearm rather
than too far proximally in the upper arm. I am mobilized this forearm segment of the vein. Again any branches were ligated between silk ties and clips and then divided. Now I carried the incision more proximally to the mid upper arm close to red
hayley to the confluence to the deep vein. I mobilized the vein, again ligating any branches between silk ties and clips and then dividing them. Care was taken to avoid any injury to surrounding structures, namely the median antebrachial cutaneous
nerve which was carefully preserved from harm's way. Any branches of the basilic vein were ligated between silk ties and then divided. As such I was able to mobilize the entirety of the basilic vein out of its bed. Once I fully mobilized
sufficient length of vein I then ligated the vein distally with a silk tie and a clip and then transected it. I then untethered it from the nerve. I distended under heparinized saline. It distended very well. I marked the anterior surface under
distention to avoid any kinking or twisting when I tunneled it.
Now I made a separate longitudinal incision slightly more anteriorly (over the biceps medial aspect) and the very distal upper arm. This was carried through skin subcutaneous tissue. In the deeper tissue once through the fascial layer, identified
the brachial artery. It was relatively deep. I passed a vessel loop around it proximally distally. Of note all dissection performed in the patient including the brachial artery dissection as well as the basilic vein, was somewhat challenging and
that the subcutaneous tissues and other tissues were a little bit adherent type tissues and structures did not just fall away. It was almost like dissecting through scar tissue. Now I have control of the artery proximally distally. I now made a
separate small incision over the middle segment/anterior head of the bicep is carried through the skin subcutaneous tissue. This is a small incision for tunneling purposes. The tunnel that I was creating was a relatively narrow U shaped given
slight proximity of the proximal extent of the basilic vein dissection in the mid upper arm and the arterial exposure site. I now used an aortic clamp to tunnel the basilic vein to the artery exposure site, using the counterincision I just made to
help facilitate tunneling. Care was taken to avoid any kinking or twisting.
Next I gave the patient 3000 units of intravenous heparin. I then tightened my Vesseloops (double looped) proximally and distally on the brachial artery. Next I made an arteriotomy with 11 blade and extended using a Vasquez scissor. I then
spatulated the vein and sewed an end-to-side anastomosis using a running 6-0 Prolene suture. I then completed and tied down my suture line. Next I released my Vesseloops on the artery and the bulldog clamp I had placed on the vein. There was a
good thrill/pulse in the fistula. Hemostasis was now confirmed along the suture line. I confirmed good distal flow with a dopplerable radial artery signal at the wrist. At this point I was very satisfied. I therefore irrigated all my incision
sites. Hemostasis was fully achieved and confirmed. Then we closed the vein mobilization bed using 3-0 Vicryl running suture. Finally 4-0 Monocryl subcuticular stitch was run. The small counterincision was closed with 4-0 Monocryl subcuticular
stitch as well. Arterial exposure incision was closed with 3-0 Vicryl and 4 Monocryl as well. Dermabond was applied to the incision sites. Patient tolerated the procedure well.
[2025-07-28] MEDS: COREG 12.5 MG PO (11:51)
[2025-07-28] MEDS: ROXICODONE 5 MG PO (12:16)
== END 2025-07-28 12:55 | disposition home or self-care (01) ==
LOC: CATH 06:13
PROVIDERS: ATTENDING PHYSICIAN Surgery Vascular Surgery; OTHER PHYSICIAN Internal Medicine Cardiovascular Disease; PRIMARYCARE PHYSICIAN Internal Medicine
DX: I12.0 Hypertensive chronic kidney disease with stage 5 chronic kidney disease or end stage renal disease (principal); N18.6 End stage renal disease; Z88.0 Allergy status to penicillin; Z88.1 Allergy status to other antibiotic agents; Z91.041 Radiographic dye allergy status; Z99.2 Dependence on renal dialysis; Z79.82 Long term (current) use of aspirin; Z79.890 Hormone replacement therapy; Z79.899 Other long term (current) drug therapy
CPT/HCPCS: 36819; 80048; 85027; 85610; 85730; 86850; 86900; 86901